=== PATIENT | female | born 1935 | race Caucasian/White ===

== ENCOUNTER → 2018-04-11 13:50 | Outpatient (CLI) | payer MEDICARE, SELFPAY ==
--- NOTE | 2018-04-11 13:57 | ECHOD_ITS ---
Reason For Study: PVCs Procedure This was a 2D Doppler, Color Flow transthoracic echocardiogram. Exam performed in department. Left Ventricle Normal LV size. Left ventricular systolic function is normal. The estimated ejection fraction is 55 %. Stage 1 diastolic dysfunction. No regional wall motion abnormalities noted. Right Ventricle Normal RV size. Normal systolic function. Atria Normal left atrium. Normal right atrium. Hypermobile atrial septum. Mitral Valve Normal mitral valve. Tricuspid Valve Normal tricuspid valve. Mild tricuspid valve insufficiency. Pulmonary artery systolic pressure is 23 mmHg. Aortic Valve Trisinus/trileaflet aortic valve. 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 Pulmonic Valve Normal pulmonic valve. Great Vessels Normal aortic root. The pulmonary artery is normal size. Normal inferior vena cava. Pericardium/Pleural No pericardial effusion. Medication Performed a rapid injection of agitated mix of 9 cc saline and 1cc air to assess for atrial septal defect. Definity0.4ml given slow IV push to enhance endocardial definition. MMode/2D Measurements & Calculations LVIDd: 5.2 cm IVSd: 1.3 cm Ao root diam: 3.5 cm LVIDs: 3.7 cm LVPWd: 1.0 cm LA dimension: 2.7 cm RVDd: 3.9 cm FS: 27.6 % LAV(MOD-bp): 57.7 ml LAV(MOD-bp) Indexed: 35.0 ml/m2 LA A4 area: 19.6 cm2 RA A4 area: 18.2 cm2 LAV(MOD-sp2): 50.6 ml LAV(MOD-sp4): 61.6 ml Doppler Measurements & Calculations MV E max abel: 55.5 cm/sec Lat Peak E' Abel: 2.7 cm/sec Med Peak E' Abel: 3.0 cm/sec MV A max abel: 93.8 cm/sec E/E' lat: 20.5 E/E' med: 18.3 MV E/A: 0.59 Ao V2 max: 160.8 cm/sec AI max abel: 380.4 cm/sec LV V1 max: 101.4 cm/sec Ao max P.3 mmHg AI max P.9 mmHg LV V1 max P.1 mmHg Ao V2 mean: 105.5 cm/sec AI dec slope: 243.4 cm/sec2 Ao mean P.0 mmHg AI P1/2t: 457.8 msec Ao V2 VTI: 33.3 cm PA V2 max: 62.6 cm/sec TR max abel: 228.6 cm/sec TR max P.9 mmHg Interpretation Summary Hypermobile atrial septum. Normal LV size. Left ventricular systolic function is normal. The estimated ejection fraction is 55 %. Stage 1 diastolic dysfunction. 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 Ordering Physician: Chris Arora Referring Physician: Chris Arora Performed By: Lizbeth Fierro, DIEGOCS, RVT
== END ==
PROVIDERS: Family Provider Family Medicine; PCP Family Medicine; Visit Provider Family Medicine
DX: I49.3 Ventricular premature depolarization (principal)
CPT/HCPCS: 93225; 93226; 93306; Q9957; A4216; C8929

== ENCOUNTER → 2021-10-16 | Outpatient (REF) | payer SELFPAY ==
[2021-10-16 09:23] LABS: Hematocrit 29.3 % (37-47); Hemoglobin 9.2 g/dL (12.0-15.0); Mean Corp Hgb Conc 31.4 g/dL (32-36); Mean Corpuscular Hgb 31.4 pg (27.0-32.0); Mean Platelet Vol. 9.2 fl (6.2-12.0); Platelet Count 501 K/mm3 (150-450); RBC Distribution Width CV 15.4 % (11.6-14.6); Red Blood Count 2.93 M/mm3 (4.2-5.4); White Blood Count 5.1 K/mm3 (4.4-11.0)
[2021-10-16 09:42] LABS: Vitamin D,25 Hydroxy 11.2 ng/mL
[2021-10-16 09:57] LABS: Hemoglobin A1c 4.8 % (3.8-5.6)
[2021-10-16 10:14] LABS: ALB/GLOB Ratio 1.1 RATIO (0.9-2.4); AST(SGOT) 18 U/L (15-37); Alanine Aminotransfer ALT/SGPT 17 U/L (13-56); Albumin, Serum 2.7 g/dL (3.2-5.0); Alkaline Phosphatase 168 U/L (45-117); Anion Gap 5 (5-15); BUN 14 mg/dL (7-18); BUN/Creat Ratio 24.4 RATIO (10-20); Calcium,Total 8.2 mg/dL (8.5-10.1); Chloride 107 mmol/L (98-107); Cholesterol 132 mg/dL (200); Creatinine, Serum 0.57 mg/dL (0.55-1.02); EST Glomerular Filtration Rate 107 mL/min (>60); Est Glom Filt Rate - Afr Amer 129 mL/min (>60); Globulin 2.5 g/dL (2.2-4.2); Glucose 75 mg/dL (74-106); High Density Lipoprotein 48 mg/dL; Magnesium 2.7 mg/dL (1.6-2.6); Potassium 4.1 mmol/L (3.5-5.1); Protein, Total 5.2 g/dL (6.4-8.2); Sodium Level 138 mmol/L (136-145); Thyroid Stim Hormone (TSH) 0.77 uIU/mL (0.358-3.74); Triglycerides 75 mg/dL; Very Low Density Lipoprotein 15 mg/dL (5-40)
== END | disposition home or self-care (01) ==
LOC: OLS.ACW100 04:00
PROVIDERS: PCP Family Medicine; Visit Provider Family Medicine
DX: M97.8XXD Periprosthetic fracture around other internal prosthetic joint, subsequent encounter (principal); M97 Periprosthetic fracture around internal prosthetic joint; W19.XXXD Unspecified fall, subsequent encounter
CPT/HCPCS: 36415; 80053; 80061; 82306; 83036; 83735; 84443; 85027

== ENCOUNTER → 2021-12-11 | Outpatient (REF) | payer OTHER, SELFPAY ==
[2021-12-11 09:11] LABS: Hematocrit 41.7 % (37-47); Hemoglobin 12.8 g/dL (12.0-15.0); Mean Corp Hgb Conc 30.7 g/dL (32-36); Mean Corpuscular Hgb 28.4 pg (27.0-32.0); Mean Corpuscular Volume 92.5 fL (81-99); Mean Platelet Vol. 10.6 fl (6.2-12.0); Platelet Count 278 K/mm3 (150-450); RBC Distribution Width CV 14.9 % (11.6-14.6); RBC Distribution Width SD 50.9 fl (35.1-43.9); Red Blood Count 4.51 M/mm3 (4.2-5.4); White Blood Count 7.9 K/mm3 (4.4-11.0)
[2021-12-11 09:24] LABS: Anion Gap 1 (5-15); BUN 23 mg/dL (7-18); BUN/Creat Ratio 29.5 RATIO (10-20); Calcium,Total 9.6 mg/dL (8.5-10.1); Chloride 107 mmol/L (98-107); Creatinine, Serum 0.78 mg/dL (0.55-1.02); EST Glomerular Filtration Rate 75 mL/min (>60); Est Glom Filt Rate - Afr Amer 90 mL/min (>60); Glucose 82 mg/dL (74-106); Sodium Level 140 mmol/L (136-145)
== END | disposition home or self-care (01) ==
LOC: OLS.ACW100 05:00
PROVIDERS: PCP Family Medicine; Referring Provider Family Medicine; Visit Provider Family Medicine
DX: M97.8XXD Periprosthetic fracture around other internal prosthetic joint, subsequent encounter (principal); W19.XXXD Unspecified fall, subsequent encounter
CPT/HCPCS: 36415; 80048; 85027

== ENCOUNTER → 2022-03-19 | Outpatient (REF) | payer OTHER, SELFPAY ==
[2022-03-19 10:02] LABS: Erythrocyte Sedimentation Rate < 1 mm/hr (0-30)
[2022-03-19 10:06] LABS: Hematocrit 38.9 % (37-47); Hemoglobin 12.5 g/dL (12.0-15.0); Mean Corp Hgb Conc 32.1 g/dL (32-36); Mean Corpuscular Hgb 29.6 pg (27.0-32.0); Mean Platelet Vol. 10.8 fl (6.2-12.0); Platelet Count 253 K/mm3 (150-450); RBC Distribution Width CV 15.8 % (11.6-14.6); RBC Distribution Width SD 52.9 fl (35.1-43.9); Red Blood Count 4.23 M/mm3 (4.2-5.4); White Blood Count 7.7 K/mm3 (4.4-11.0)
[2022-03-19 10:08] LABS: Vitamin D,25 Hydroxy 84.7 ng/mL
[2022-03-19 10:13] LABS: AST(SGOT) 16 U/L (15-37); Alanine Aminotransfer ALT/SGPT 17 U/L (13-56); Albumin, Serum 2.9 g/dL (3.2-5.0); Alkaline Phosphatase 65 U/L (45-117); Anion Gap 6 (5-15); BUN 21 mg/dL (7-18); BUN/Creat Ratio 25.1 RATIO (10-20); CRP < 2.90 mg/L (0.0-3.0); Calcium,Total 8.9 mg/dL (8.5-10.1); Chloride 106 mmol/L (98-107); Cholesterol 124 mg/dL (200); Creatinine, Serum 0.84 mg/dL (0.55-1.02); EST Glomerular Filtration Rate 69 mL/min (>60); Est Glom Filt Rate - Afr Amer 83 mL/min (>60); Globulin 2.8 g/dL (2.2-4.2); Glucose 77 mg/dL (74-106); High Density Lipoprotein 51 mg/dL; Potassium 4.6 mmol/L (3.5-5.1); Protein, Total 5.7 g/dL (6.4-8.2); Sodium Level 140 mmol/L (136-145); Triglycerides 87 mg/dL; Very Low Density Lipoprotein 17 mg/dL (5-40)
== END ==
LOC: OLS.ACW100 05:00
PROVIDERS: PCP Family Medicine; Visit Provider Family Medicine
DX: M97.8XXD Periprosthetic fracture around other internal prosthetic joint, subsequent encounter (principal); M97 Periprosthetic fracture around internal prosthetic joint; E55.9 Vitamin D deficiency, unspecified; Z79.899 Other long term (current) drug therapy; W19.XXXD Unspecified fall, subsequent encounter
CPT/HCPCS: 36415; 80053; 80061; 82306; 85027; 85652; 86140

== ENCOUNTER → 2022-08-06 | Outpatient (REF) | payer MEDICARE, MEDICAID, SELFPAY ==
[2022-08-06 10:01] LABS: Anion Gap 4 (5-15); BUN 17 mg/dL (7-18); BUN/Creat Ratio 24.5 RATIO (10-20); Calcium,Total 9.2 mg/dL (8.5-10.1); Chloride 107 mmol/L (98-107); Creatinine, Serum 0.69 mg/dL (0.55-1.02); EST Glomerular Filtration Rate 85 mL/min (>60); Est Glom Filt Rate - Afr Amer 103 mL/min (>60); Glucose 88 mg/dL (74-106); Potassium 3.9 mmol/L (3.5-5.1); Sodium Level 139 mmol/L (136-145)
== END ==
LOC: OLS.ACW100 05:00
PROVIDERS: PCP Family Medicine; Visit Provider Family Medicine
DX: M97.8XXD Periprosthetic fracture around other internal prosthetic joint, subsequent encounter (principal); M97 Periprosthetic fracture around internal prosthetic joint; Z79.899 Other long term (current) drug therapy
CPT/HCPCS: 36415; 80048

== ENCOUNTER → 2023-01-20 | Outpatient (REF) | payer MEDICARE, MEDICAID, SELFPAY ==
[2023-01-20 09:25] LABS: Hematocrit 38.6 % (37-47); Hemoglobin 12.1 g/dL (12.0-15.0); Mean Corp Hgb Conc 31.3 g/dL (32-36); Mean Corpuscular Hgb 30.5 pg (27.0-32.0); Mean Corpuscular Volume 97.2 fL (81-99); Mean Platelet Vol. 10.3 fl (6.2-12.0); Platelet Count 267 K/mm3 (150-450); RBC Distribution Width CV 13.8 % (11.6-14.6); RBC Distribution Width SD 49.8 fl (35.1-43.9); Red Blood Count 3.97 M/mm3 (4.2-5.4); White Blood Count 6.5 K/mm3 (4.4-11.0)
[2023-01-20 09:52] LABS: AST(SGOT) 21 U/L (15-37); Alanine Aminotransfer ALT/SGPT 19 U/L (13-56); Alkaline Phosphatase 78 U/L (45-117); Anion Gap 4 (5-15); BUN 22 mg/dL (7-18); BUN/Creat Ratio 25.1 RATIO (10-20); Calcium,Total 9.4 mg/dL (8.5-10.1); Chloride 106 mmol/L (98-107); Cholesterol 126 mg/dL (200); Creatinine, Serum 0.88 mg/dL (0.55-1.02); EST Glomerular Filtration Rate 65 mL/min (>60); Est Glom Filt Rate - Afr Amer 79 mL/min (>60); Globulin 3.1 g/dL (2.2-4.2); Glucose 81 mg/dL (74-106); High Density Lipoprotein 48 mg/dL; Potassium 4.5 mmol/L (3.5-5.1); Protein, Total 6.1 g/dL (6.4-8.2); Sodium Level 139 mmol/L (136-145); Thyroid Stim Hormone (TSH) 0.21 uIU/mL (0.358-3.74); Triglycerides 78 mg/dL; Very Low Density Lipoprotein 16 mg/dL (5-40)
== END ==
LOC: OLS.ACW100 05:00
PROVIDERS: PCP Family Medicine; Visit Provider Family Medicine
DX: M97.8XXD Periprosthetic fracture around other internal prosthetic joint, subsequent encounter (principal); M97 Periprosthetic fracture around internal prosthetic joint; W19.XXXD Unspecified fall, subsequent encounter; Z79.899 Other long term (current) drug therapy
CPT/HCPCS: 36415; 80053; 80061; 84443; 85027

== ENCOUNTER → 2023-01-27 | Outpatient (REF) | payer MEDICARE, MEDICAID, SELFPAY ==
[2023-01-27 11:37] LABS: Hematocrit 39.9 % (37-47); Hemoglobin 12.5 g/dL (12.0-15.0); Mean Corp Hgb Conc 31.3 g/dL (32-36); Mean Corpuscular Hgb 30.1 pg (27.0-32.0); Mean Corpuscular Volume 96.1 fL (81-99); Mean Platelet Vol. 11.2 fl (6.2-12.0); Platelet Count 228 K/mm3 (150-450); RBC Distribution Width CV 13.9 % (11.6-14.6); RBC Distribution Width SD 48.8 fl (35.1-43.9); Red Blood Count 4.15 M/mm3 (4.2-5.4); White Blood Count 7.1 K/mm3 (4.4-11.0)
[2023-01-27 12:12] LABS: ALB/GLOB Ratio 0.9 RATIO (0.9-2.4); AST(SGOT) 15 U/L (15-37); Alanine Aminotransfer ALT/SGPT 16 U/L (13-56); Albumin, Serum 2.9 g/dL (3.2-5.0); Alkaline Phosphatase 77 U/L (45-117); Anion Gap 5 (5-15); BUN 23 mg/dL (7-18); BUN/Creat Ratio 24.9 RATIO (10-20); Calcium,Total 9.5 mg/dL (8.5-10.1); Chloride 107 mmol/L (98-107); Cholesterol 119 mg/dL (200); Creatinine, Serum 0.92 mg/dL (0.55-1.02); EST Glomerular Filtration Rate 61 mL/min (>60); Est Glom Filt Rate - Afr Amer 74 mL/min (>60); Globulin 3.2 g/dL (2.2-4.2); Glucose 81 mg/dL (74-106); High Density Lipoprotein 46 mg/dL; Potassium 4.5 mmol/L (3.5-5.1); Protein, Total 6.1 g/dL (6.4-8.2); Sodium Level 139 mmol/L (136-145); Thyroid Stim Hormone (TSH) 0.16 uIU/mL (0.358-3.74); Triglycerides 76 mg/dL; Very Low Density Lipoprotein 15 mg/dL (5-40)
== END ==
LOC: OLS.ACW100 06:00
PROVIDERS: PCP Family Medicine; Visit Provider Family Medicine
DX: M97.8XXD Periprosthetic fracture around other internal prosthetic joint, subsequent encounter (principal); M97 Periprosthetic fracture around internal prosthetic joint; W19.XXXD Unspecified fall, subsequent encounter; Z79.899 Other long term (current) drug therapy
CPT/HCPCS: 36415; 80053; 80061; 84443; 85027

== ENCOUNTER → 2023-02-04 | Outpatient (REF) | payer MEDICARE, MEDICAID, SELFPAY ==
[2023-02-04 10:24] LABS: Free T3 2.5 pg/mL (2.18-3.98); T4 Free Direct 1.18 ng/dL (0.76-1.46); Thyroid Stim Hormone (TSH) 0.21 uIU/mL (0.358-3.74)
== END ==
LOC: OLS.ACW100 04:00
PROVIDERS: PCP Family Medicine; Referring Provider Family Medicine; Visit Provider Family Medicine
DX: M97.8XXD Periprosthetic fracture around other internal prosthetic joint, subsequent encounter (principal); M97 Periprosthetic fracture around internal prosthetic joint; W19.XXXD Unspecified fall, subsequent encounter; Z79.899 Other long term (current) drug therapy
CPT/HCPCS: 36415; 84439; 84443; 84481

== ENCOUNTER → 2023-03-23 | Outpatient (REF) | payer MEDICARE, MEDICAID, SELFPAY ==
[2023-03-23 10:11] LABS: T4 Total, Thyroxin 8.2 ug/dL (4.8-13.9); Thyroid Stim Hormone (TSH) 0.23 uIU/mL (0.358-3.74)
[2023-03-23 10:51] LABS: T3 Total - Triiodothyronine 0.94 ng/mL (0.6-1.81)
== END ==
LOC: OLS.ACW100 05:00
PROVIDERS: PCP Family Medicine; Visit Provider Family Medicine
DX: E87.1 Hypo-osmolality and hyponatremia (principal); R73.9 Hyperglycemia, unspecified
CPT/HCPCS: 36415; 84436; 84443; 84480

== ENCOUNTER → 2023-05-03 | Outpatient (REF) | payer MEDICARE, MEDICAID, SELFPAY ==
[2023-05-03 07:41] LABS: Hematocrit 38.7 % (37-47); Hemoglobin 12.3 g/dL (12.0-15.0); Mean Corp Hgb Conc 31.8 g/dL (32-36); Mean Corpuscular Hgb 30.8 pg (27.0-32.0); Mean Corpuscular Volume 96.8 fL (81-99); Mean Platelet Vol. 10.1 fl (6.2-12.0); Platelet Count 226 K/mm3 (150-450); RBC Distribution Width CV 13.4 % (11.6-14.6); RBC Distribution Width SD 48.1 fl (35.1-43.9); White Blood Count 6.5 K/mm3 (4.4-11.0)
[2023-05-03 07:55] LABS: Anion Gap 4 (5-15); BUN 12 mg/dL (7-18); BUN/Creat Ratio 13.7 RATIO (10-20); Calcium,Total 9.2 mg/dL (8.5-10.1); Chloride 107 mmol/L (98-107); Cholesterol 120 mg/dL (200); Creatinine, Serum 0.88 mg/dL (0.55-1.02); EST Glomerular Filtration Rate 65 mL/min (>60); Est Glom Filt Rate - Afr Amer 79 mL/min (>60); Glucose 87 mg/dL (74-106); High Density Lipoprotein 52 mg/dL; Iron 61 ug/dL (50-170); Sodium Level 142 mmol/L (136-145); Triglycerides 94 mg/dL; Very Low Density Lipoprotein 19 mg/dL (5-40)
== END ==
LOC: OLS.ACW100 05:00
PROVIDERS: PCP Family Medicine; Visit Provider Family Medicine
DX: M97.8XXD Periprosthetic fracture around other internal prosthetic joint, subsequent encounter (principal); M97 Periprosthetic fracture around internal prosthetic joint; W19.XXXD Unspecified fall, subsequent encounter
CPT/HCPCS: 36415; 80048; 80061; 83540; 85027

== ENCOUNTER → 2023-11-17 | Outpatient (REF) | payer MEDICARE, MEDICAID, SELFPAY | LOC: OLS.ACW100 05:00 | PROVIDERS: PCP Family Medicine; Visit Provider Family Medicine | DX: M97.8XXD Periprosthetic fracture around other internal prosthetic joint, subsequent encounter (principal); M97 Periprosthetic fracture around internal prosthetic joint; W19.XXXD Unspecified fall, subsequent encounter | CPT/HCPCS: 36415; 87040 ==

== ENCOUNTER → 2023-11-25 | Outpatient (REF) | payer MEDICARE, MEDICAID, SELFPAY ==
[2023-11-25 08:29] LABS: Cholesterol 141 mg/dL (200); High Density Lipoprotein 54 mg/dL; Triglycerides 86 mg/dL; Very Low Density Lipoprotein 17 mg/dL (5-40)
== END ==
LOC: OLS.ACW100 05:00
PROVIDERS: PCP Family Medicine; Visit Provider Family Medicine
DX: N39.0 Urinary tract infection, site not specified (principal); Z79.899 Other long term (current) drug therapy
CPT/HCPCS: 36415; 80061

== ENCOUNTER → 2023-12-02 04:00 | Outpatient (REF) | payer MEDICARE, MEDICAID, SELFPAY ==
[2023-12-02 08:48] LABS: Anion Gap 6 (5-15); BUN 9 mg/dL (7-18); BUN/Creat Ratio 12.3 RATIO (10-20); Calcium,Total 9.3 mg/dL (8.5-10.1); Chloride 109 mmol/L (98-107); Cholesterol 124 mg/dL (200); Creatinine, Serum 0.73 mg/dL (0.55-1.02); EST Glomerular Filtration Rate 80 mL/min (>60); Est Glom Filt Rate - Afr Amer 96 mL/min (>60); Glucose 84 mg/dL (74-106); High Density Lipoprotein 58 mg/dL; Potassium 3.5 mmol/L (3.5-5.1); Sodium Level 139 mmol/L (136-145); Triglycerides 73 mg/dL; Very Low Density Lipoprotein 15 mg/dL (5-40)
== END ==
LOC: OLS.ACW100 04:00
PROVIDERS: PCP Family Medicine; Referring Provider Family Medicine; Visit Provider Family Medicine
DX: N39.0 Urinary tract infection, site not specified (principal); R41.82 Altered mental status, unspecified; Z74.1 Need for assistance with personal care; R53.81 Other malaise; R53.83 Other fatigue; W19.XXXD Unspecified fall, subsequent encounter
CPT/HCPCS: 36415; 80048; 80061

== ENCOUNTER → 2023-12-16 | Outpatient (REF) | payer MEDICARE, MEDICAID, SELFPAY ==
[2023-12-16 09:08] LABS: T4 Total, Thyroxin 7.4 ug/dL (4.8-13.9); Thyroid Stim Hormone (TSH) 0.47 uIU/mL (0.358-3.74)
[2023-12-16 18:23] LABS: T3 Total - Triiodothyronine 0.99 ng/mL (0.6-1.81)
== END ==
LOC: OLS.ACW100 05:00
PROVIDERS: PCP Family Medicine; Visit Provider Family Medicine
DX: R53.81 Other malaise (principal); R53.83 Other fatigue
CPT/HCPCS: 36415; 84436; 84443; 84480

== ENCOUNTER → 2024-04-04 05:00 | Outpatient (REF) | payer MEDICARE, MEDICAID, SELFPAY ==
[2024-04-04 08:56] LABS: Hematocrit 40.8 % (37-47); Mean Corp Hgb Conc 31.9 g/dL (32-36); Mean Corpuscular Hgb 29.3 pg (27.0-32.0); Mean Corpuscular Volume 91.9 fL (81-99); Mean Platelet Vol. 9.7 fl (6.2-12.0); Platelet Count 282 K/mm3 (150-450); RBC Distribution Width CV 15.8 % (11.6-14.6); RBC Distribution Width SD 52.7 fl (35.1-43.9); Red Blood Count 4.44 M/mm3 (4.2-5.4); White Blood Count 5.2 K/mm3 (4.4-11.0)
[2024-04-04 09:27] LABS: Anion Gap 7 (5-15); BUN 17 mg/dL (7-18); BUN/Creat Ratio 22.2 RATIO (10-20); Calcium,Total 9.3 mg/dL (8.5-10.1); Chloride 110 mmol/L (98-107); Cholesterol 175 mg/dL (200); Creatinine, Serum 0.77 mg/dL (0.55-1.02); EST Glomerular Filtration Rate 76 mL/min (>60); Est Glom Filt Rate - Afr Amer 92 mL/min (>60); Glucose 87 mg/dL (74-106); High Density Lipoprotein 68 mg/dL; Iron 57 ug/dL (50-170); Iron Binding Capacity,Total 255 ug/dL (250-450); PERCENT IRON SATURATION 22.4 % (15.0-55.0); Potassium 4.5 mmol/L (3.5-5.1); Sodium Level 139 mmol/L (136-145); Triglycerides 82 mg/dL; Very Low Density Lipoprotein 16 mg/dL (5-40)
== END ==
LOC: OLS.ACW100 05:00
PROVIDERS: PCP Family Medicine; Visit Provider Family Medicine
DX: R41.82 Altered mental status, unspecified (principal); N39.0 Urinary tract infection, site not specified; R26.81 Unsteadiness on feet
CPT/HCPCS: 36415; 80048; 80061; 82306; 83540; 83550; 85027

== ENCOUNTER → 2024-04-24 | Outpatient (REF) | payer MEDICARE, MEDICAID, SELFPAY ==
[2024-04-24 09:10] LABS: ALB/GLOB Ratio 1.2 RATIO (0.9-2.4); AST(SGOT) 13 U/L (15-37); Alanine Aminotransfer ALT/SGPT 13 U/L (13-56); Albumin, Serum 3.1 g/dL (3.2-5.0); Alkaline Phosphatase 82 U/L (45-117); Anion Gap 8 (5-15); BUN 18 mg/dL (7-18); BUN/Creat Ratio 19.4 RATIO (10-20); Calcium,Total 9.3 mg/dL (8.5-10.1); Chloride 110 mmol/L (98-107); Creatinine, Serum 0.93 mg/dL (0.55-1.02); EST Glomerular Filtration Rate 61 mL/min (>60); Est Glom Filt Rate - Afr Amer 73 mL/min (>60); Free T3 2.1 pg/mL (2.18-3.98); Globulin 2.5 g/dL (2.2-4.2); Glucose 97 mg/dL (74-106); Potassium 3.9 mmol/L (3.5-5.1); Protein, Total 5.6 g/dL (6.4-8.2); Sodium Level 140 mmol/L (136-145); T4 Free Direct 1.03 ng/dL (0.76-1.46)
== END ==
LOC: OLS.ACW100 05:00
PROVIDERS: PCP Family Medicine; Visit Provider Family Medicine
DX: E04.1 Nontoxic single thyroid nodule (principal); N39.0 Urinary tract infection, site not specified; R41.82 Altered mental status, unspecified
CPT/HCPCS: 36415; 80053; 84439; 84443; 84481

== ENCOUNTER → 2024-05-08 | Outpatient (REF) | payer MEDICARE, MEDICAID, SELFPAY ==
[2024-05-08 08:10] LABS: Hematocrit 38.4 % (37-47); Hemoglobin 12.1 g/dL (12.0-15.0); Mean Corp Hgb Conc 31.5 g/dL (32-36); Mean Corpuscular Hgb 30.2 pg (27.0-32.0); Mean Corpuscular Volume 95.8 fL (81-99); Mean Platelet Vol. 9.1 fl (6.2-12.0); Platelet Count 275 K/mm3 (150-450); RBC Distribution Width CV 17.5 % (11.6-14.6); RBC Distribution Width SD 61.7 fl (35.1-43.9); Red Blood Count 4.01 M/mm3 (4.2-5.4); White Blood Count 5.9 K/mm3 (4.4-11.0)
[2024-05-08 10:53] LABS: Anion Gap 7 (5-15); BUN 15 mg/dL (7-18); BUN/Creat Ratio 20.6 RATIO (10-20); Calcium,Total 9.5 mg/dL (8.5-10.1); Chloride 112 mmol/L (98-107); Cholesterol 169 mg/dL (200); Creatinine, Serum 0.73 mg/dL (0.55-1.02); EST Glomerular Filtration Rate 80 mL/min (>60); Est Glom Filt Rate - Afr Amer 97 mL/min (>60); Glucose 82 mg/dL (74-106); High Density Lipoprotein 70 mg/dL; Iron Binding Capacity,Total 232 ug/dL (250-450); Potassium 3.9 mmol/L (3.5-5.1); Sodium Level 141 mmol/L (136-145); Triglycerides 96 mg/dL; Very Low Density Lipoprotein 19 mg/dL (5-40)
== END ==
LOC: OLS.ACW100 05:00
PROVIDERS: PCP Family Medicine; Visit Provider Family Medicine
DX: Z79.899 Other long term (current) drug therapy (principal)
CPT/HCPCS: 36415; 80048; 80061; 83550; 85027

== ENCOUNTER → 2024-09-04 05:00 | Outpatient (REF) | payer MEDICARE, MEDICAID, SELFPAY ==
[2024-09-04 10:58] LABS: T4 Total, Thyroxin 8.5 ug/dL (4.8-13.9)
[2024-09-04 12:06] LABS: T3 Total - Triiodothyronine 0.73 ng/mL (0.6-1.81)
== END ==
LOC: OLS.ACW100 05:00
PROVIDERS: PCP Family Medicine; Visit Provider Family Medicine
DX: R41.82 Altered mental status, unspecified (principal); R26.81 Unsteadiness on feet
CPT/HCPCS: 36415; 84436; 84443; 84480

== ENCOUNTER → 2024-10-26 | Outpatient (REF) | payer MEDICARE, MEDICAID, SELFPAY ==
[2024-10-26 08:09] LABS: Hematocrit 41.9 % (37-47); Hemoglobin 13.8 g/dL (12.0-15.0); Mean Corp Hgb Conc 32.9 g/dL (32-36); Mean Corpuscular Hgb 32.5 pg (27.0-32.0); Mean Corpuscular Volume 98.6 fL (81-99); Mean Platelet Vol. 8.4 fl (6.2-12.0); Platelet Count 313 K/mm3 (150-450); RBC Distribution Width CV 14.7 % (11.6-14.6); RBC Distribution Width SD 53.3 fl (35.1-43.9); Red Blood Count 4.25 M/mm3 (4.2-5.4); White Blood Count 7.7 K/mm3 (4.4-11.0)
[2024-10-26 09:53] LABS: ALB/GLOB Ratio 1.8 RATIO (0.9-2.4); AST(SGOT) 16 U/L (<=31); Alanine Aminotransfer ALT/SGPT 10 U/L (<=34); Albumin, Serum 3.4 g/dL (3.4-4.8); Alkaline Phosphatase 75 U/L (35-104); Anion Gap 8 (5-15); BUN 15 mg/dL (4-19); BUN/Creat Ratio 22.3 RATIO (10-20); Calcium,Total 8.9 mg/dL (7.6-11.0); Chloride 105 mmol/L (98-108); Creatinine, Serum 0.67 mg/dL (0.70-1.20); EST Glomerular Filtration Rate 85 (>60); Globulin 1.9 g/dL (2.2-4.2); Glucose 91 mg/dL (70-99); Potassium 4.2 mmol/L (3.3-5.1); Pro- Brain NATRIURETIC PEPTIDE 173 pg/mL (<=1800); Protein, Total 5.4 g/dL (5.9-8.4); Sodium Level 138 mmol/L (133-145); Total Bilirubin 0.58 mg/dL (0.00-1.30)
== END ==
LOC: OLS.ACW100 04:00
PROVIDERS: PCP Family Medicine; Referring Provider Family Medicine; Visit Provider Family Medicine
DX: I51.9 Heart disease, unspecified (principal); N39.0 Urinary tract infection, site not specified; R41.82 Altered mental status, unspecified; R26.81 Unsteadiness on feet
CPT/HCPCS: 36415; 80053; 83880; 85027

== ENCOUNTER → 2024-11-06 | Outpatient (REF) | payer MEDICARE, MEDICAID, SELFPAY ==
[2024-11-06 10:06] LABS: Hematocrit 42.6 % (37-47); Hemoglobin 13.9 g/dL (12.0-15.0); Mean Corp Hgb Conc 32.6 g/dL (32-36); Mean Corpuscular Hgb 32.5 pg (27.0-32.0); Mean Corpuscular Volume 99.5 fL (81-99); Mean Platelet Vol. 8.6 fl (6.2-12.0); Platelet Count 305 K/mm3 (150-450); RBC Distribution Width CV 14.6 % (11.6-14.6); RBC Distribution Width SD 53.8 fl (35.1-43.9); Red Blood Count 4.28 M/mm3 (4.2-5.4); White Blood Count 8.3 K/mm3 (4.4-11.0)
[2024-11-06 10:25] LABS: Anion Gap 9 (5-15); BUN 12 mg/dL (4-19); BUN/Creat Ratio 18.9 RATIO (10-20); Carbon Dioxide 20.9 mmol/L (21.0-32.0); Chloride 107 mmol/L (98-108); Cholesterol 155 mg/dL (<=200); Creatinine, Serum 0.64 mg/dL (0.70-1.20); EST Glomerular Filtration Rate 86 (>60); Glucose 82 mg/dL (70-99); High Density Lipoprotein 74 mg/dL; Low Density Lipoprotein Calc. 67 mg/dL; Potassium 4.2 mmol/L (3.3-5.1); Sodium Level 137 mmol/L (133-145); Triglycerides 69 mg/dL; Very Low Density Lipoprotein 14 mg/dL (5-40)
[2024-11-06 10:55] LABS: Iron 62 ug/dL (50-170); Iron Binding Capacity,Unsat 110 ug/dL (228-428)
[2024-11-06 10:58] LABS: Vitamin D,25 Hydroxy 51.5 ng/mL (30-100)
[2024-11-06 11:08] LABS: Iron Binding Capacity,Total 172 ug/dL (250-450)
== END ==
LOC: OLS.ACW100 05:00
PROVIDERS: PCP Family Medicine; Visit Provider Family Medicine
DX: N39.0 Urinary tract infection, site not specified (principal); R41.82 Altered mental status, unspecified; R26.81 Unsteadiness on feet
CPT/HCPCS: 36415; 80048; 80061; 82306; 83540; 83550; 85027

== ENCOUNTER → 2024-11-30 | Outpatient (REF) | payer MEDICARE, MEDICAID, SELFPAY ==
[2024-11-30 09:15] LABS: Anion Gap 9 (5-15); BUN 13 mg/dL (4-19); BUN/Creat Ratio 18.2 RATIO (10-20); Carbon Dioxide 22.9 mmol/L (21.0-32.0); Chloride 105 mmol/L (98-108); EST Glomerular Filtration Rate 84 (>60); Glucose 86 mg/dL (70-99); Sodium Level 137 mmol/L (133-145)
== END ==
LOC: OLS.ACW100 05:00
PROVIDERS: PCP Family Medicine; Visit Provider Family Medicine
DX: N39.0 Urinary tract infection, site not specified (principal); R41.82 Altered mental status, unspecified; R26.81 Unsteadiness on feet
CPT/HCPCS: 36415; 80048

== ENCOUNTER → 2025-01-01 | Outpatient (REF) | payer MEDICARE, MEDICAID, SELFPAY ==
[2025-01-01 09:12] LABS: T4 Total, Thyroxin 5.9 ug/dL (4.8-13.9)
[2025-01-01 09:33] LABS: T3 Total - Triiodothyronine 0.91 ng/mL (0.80-2.00)
== END ==
LOC: OLS.ACW100 05:00
PROVIDERS: PCP Family Medicine; Visit Provider Family Medicine
DX: N39.0 Urinary tract infection, site not specified (principal); R41.82 Altered mental status, unspecified
CPT/HCPCS: 36415; 84436; 84443; 84480

== ENCOUNTER → 2025-04-09 04:00 | Outpatient (REF) | payer MEDICARE, MEDICAID, SELFPAY ==
--- OUTSIDE RECORDS SUMMARY | 2025-04-09 04:22 | XMS RPT_ITS | CCD ---
Author Organization [facility] Inform ion Partnership [facility] Care Team Providers Care Technology Strategist Name Role Phone Chris Arora Primary Care Provider Thais Talamantes Primary Care Provider Thais Talamantes MD Primary Care Provider [phone] Thais Esteves Attending Unavailable Chris Arora Primary Care Unavailable Thais Esteves Attending Unavailable Maite, Chris Primary Care Unavailable Thais Esteves Referring Unavailable Thais Esteves Attending Unavailable Maite, Chris Primary Care Unavailable Thais Esteves Attending Unavailable Maite, Chris Primary Care Unavailable Thais Esteves Attending Unavailable Maite, Chris Primary Care Unavailable Thais Esteves Attending Unavailable Maite, Chris Primary Care Unavailable Thais Esteves Attending Unavailable Maite, Chris Primary Care Unavailable Thais Esteves Attending Unavailable Chris Arora Primary Care Unavailable BRENT BARAKAT Attending Unavailable THAIS TALAMANTES Primary Care Unavailable BRENT BARAKAT Attending Unavailable BRENT BARAKAT Referring Unavailable THAIS TALAMANTES Primary Care Unavailable BRENT BARAKAT Referring Unavailable THAIS TALAMANTES Primary Care Unavailable BRENT BARAKAT Attending Unavailable THAIS TALAMANTES Primary Care Unavailable Paco Zuluaga MD Unavailable Thais Talamantes MD Unavailable [phone] Medications Current Medications Medication Drug Class(es) Dates Sig (Normalized) Sig (Original) acetaminophen 325 mg / HYDROcodone bitartrate 5 mg oral tablet (1 source) Opioid Agonist Start: 08-31-2019 End: 09-07-2019 take 1 tablet by mouth every four hours as needed for pain HYDROcodone-aceta minophen (NORCO) 5-325 MG per tablet Indications: Benign neoplasm of larynx Take 1 tablet by mouth every 4 hours as needed for Pain for up to 7 days. 15 tablet 0 08/31/2019 09/07/2019 Active albuterol 0.83 mg/ml inhalation solution (5 sources) beta2-Adrenergic Agonist Start: 10-01-2021 albuterol (PROVENTIL) nebulizer solution 2.5 mg End: 12-31-2023 albuterol (2.5 MG/3ML) 0.083 % nebulizer solution Indications: Acute Exacerbation of COPD Take 2.5 mg by nebulization every 4 hours as needed for wheezing or shortness of breath. 0 12/31/2023 Discontinued (Therapy completed) alendronic acid 70 mg oral tablet (11 sources) Bisphosphonate Start: 08-07-2021 alendronate (F OSAMAX) 70 MG tablet Take 1 tablet by mouth every 7 days 12 tablet 0 08/07/2021 Active Start: 04-29-2021 alendronate (F OSAMAX) 70 MG tablet Take 1 tablet by mouth every 7 days 12 tablet 0 04/29/2021 Active Start: 10-15-2020 alendronate (F OSAMAX) 70 MG tablet Take 1 tablet by mouth every 7 days 12 tablet 0 10/15/2020 Active Start: 09-19-2019 alendronate (F OSAMAX) 70 MG tablet Take 1 tablet by mouth every 7 days 12 tablet 1 09/19/2019 Active Start: 06-19-2019 alendronate (F OSAMAX) 70 MG tablet Take 1 tablet by mouth every 7 days 12 tablet 0 06/19/2019 Active Start: 04-19-2019 alendronate (F OSAMAX) 70 MG tablet Take 1 tablet by mouth every 7 days 12 tablet 0 04/19/2019 Active bisacodyl 10 mg rectal suppository (5 sources) Stimulant Laxative Start: 10-01-2021 take 10 mg rectal route once daily as needed for constipation 10 mg, Rectal, DAILY PRN, Constipation, 2nd line or patient preference, Starting on Wed10/01/21 at 0746 Start: 09-30-2021 End: 09-29-2021 bisacodyl (DULCOLAX) [address] 1 suppository rectally daily 30 suppository 0 09/30/2021 09/29/2021 Discontinued Start: 09-28-2021 End: 10-29-2021 bisacodyl (DULCOLAX) [address] 1 suppository rectally daily as needed for Constipation (2nd line or patient preference) 30 suppository 0 09/29/2021 10/29/2021 Active carvedilol 3.125 mg oral tablet (20 sources) alpha-Adrenergic Maribel, beta-Adrenergic Maribel Start: 11-30-2022 End: 11-15-2023 take 1 tablet by mouth once daily carvedilol (Coreg) 3.125 MG tablet Take 3.125 mg by mouth daily. Hold if SBP less than 100 or HR less than 55 11/30/2022 Active Start: 11-30-2022 End: 10-29-2023 take 12.5 mg by mouth twice daily at mealtime 12.5 mg, Oral, 2 times daily with meals, First dose on Wed10/27/23 at 1115 Start: 07-15-2021 take 12.5 mg by mout h once daily at mealtime 12.5 mg, Oral, DAILY, First dose on Wed10/01/21 at 0900 Administer with food to minimize the risk of orthostatic hypotension Start: 04-17-2021 take 1 tablet by karina th once daily carvedilol (COREG) 12.5 MG tablet Indications: LV dysfunction , Essential hypertension , Ectopic cardiac beats , Thoracic aortic aneurysm without rupture (HCC) take 1 tablet by mouth once daily 90 tablet 3 04/17/2021 Active Start: 01-10-2021 take 1 tablet by karina th once daily carvedilol (COREG) 12.5 MG tablet Indications: LV dysfunction , Essential hypertension , Ectopic cardiac beats , Thoracic aortic aneurysm without rupture (HCC) Take 1 tablet by mouth daily 30 tablet 5 01/10/2021 Active cephalexin 500 mg oral capsule (3 sources) Cephalosporin Antibacterial Start: 10-03-2021 End: 10-07-2021 take 1 capsule by mouth every twelve hours cephALEXin (KEFLEX) 500 MG capsule Take 1 capsule by mouth every 12 hours for 1 dose 1 capsule 0 10/06/2021 10/07/2021 Active Start: 01-03-2019 take 1 capsule by mo [facility] twice daily cephALEXin (KEFLEX) 500 MG capsule Take 1 capsule by mouth 2 times daily 6 capsule 0 01/03/2019 Active diclofenac sodium 0.01 mg/mg topical gel (2 sources) Nonsteroidal Anti-inflammatory Drug Voltaren Arthriti s Pain 1 % topical gel as directed active Mary Richardson [facility] 1 ml diphenhydrAMINE hydrochloride 50 mg/ml cartridge (2 sources) Histamine-1 Receptor Antagonist Start: End: diphenhydrAMINE (BENADRYL) injection 12.5 mg Start: 08-31-2019 End: 08-31-2019 diphenhydrAMINE (BENADRYL) i njection 12.5 mg docusate sodium 100 mg oral capsule (19 sources) Start: 09-26-2021 take 1 capsule by mouth twice daily Docusate Sodium (DSS) 100 MG capsule Take 1 capsule by mouth 2 times daily. 09/29/2021 Active ergocalciferol 1.25 mg oral capsule (17 sources) Provitamin D2 Compound Start: 11-28-2022 End: 11-15-2023 take 1 capsule by mouth every week ergocalciferol (Vitamin D2) 1.25 MG (46608 UT) capsule Take 50,000 Units by mouth 1 (one) time per week. 11/28/2022 Active fexofenadine hydrochloride 180 mg oral tablet (1 source) Histamine-1 Receptor Antagonist take 1 tablet by mouth once daily Marcia Allergy 180 mg tablet 1 tablet by mouth once a day active Mary Richardson [employer] [facility] furosemide 20 mg oral tablet (1 source) Loop Diuretic take 1 tablet by mouth once daily Lasix 20 mg tablet 1 tablet by mouth once a day active Mary Richardson [employer] [facility] Handicap Placard MISC (11 sources) Start: 10-20-2018 Handicap Placard MISC 1 each by Does not apply route daily 1 each 0 10/20/2018 Active 1 ml hydrALAZINE hydrochloride 20 mg/ml injection (4 sources) Arteriolar Vasodilator Start: 10-01-2021 5 mg, IntraVENous, EVERY 6 HOURS PRN, High Blood Pressure, SBP>160 mmhg, Starting on Wed10/01/21 at 0746 Start: 02-24-2022 hydrALAZINE (A PRESOLINE) injection 10 mg Start: 06-11-2021 hydrALAZINE (A PRESOLINE) injection 5 mg Start: 08-31-2019 hydrALAZINE (A PRESOLINE) injection 5 mg hydroCHLOROthiazide 25 mg / triamterene 37.5 mg oral capsule (1 source) Potassium-sparing Diuretic, Thiazide Diuretic Start: 09-19-2019 take 1 capsule by mouth once daily triamterene-hydrochlorothiazide (DYAZIDE) 37.5-25 MG per capsule Take 1 capsule by mouth daily 30 capsule 0 09/19/2019 Active 1 ml HYDROmorphone hydrochloride 1 mg/ml cartridge (3 sources) Opioid Agonist Start: 08-31-2019 HYDROmorphone (DILAUDID) injection 0.5 mg Start: 08-31-2019 HYDROmorphone (DILAUDID) injection 0.25 mg labetalol hydrochloride 5 mg/ml injectable solution (2 sources) beta-Adrenergic Maribel Start: 06-11-2021 labetalol (NORMODYNE;TRANDATE) injection 5 mg Start: 08-31-2019 labetalol (NOR MODYNE;TRANDATE) injection 5 mg lactulose 82152 mg powder for oral solution (1 source) Osmotic Laxative Start: 10-25-2020 End: 11-01-2020 take 1 dose by mouth three times daily lactulose (CEPHULAC) 10 g packet Take 1 packet by mouth 3 times daily for 7 days 21 packet 0 10/25/2020 11/01/2020 Active linezolid 600 mg oral tablet (2 sources) Oxazolidinone Antibacterial Start: 11-15-2023 End: 11-20-2023 take 1 tablet by mouth twice daily linezolid (Zyvox) 600 MG tablet Take 1 tablet (600 mg) by mouth 2 times daily for 5 days. 10 tablet 0 11/15/2023 11/20/2023 Active lisinopril 5 mg oral tablet (20 sources) Angiotensin Converting Enzyme Inhibitor Start: 11-30-2022 End: 10-29-2023 lisinopril 5 MG tablet 11/30/2022 Active Start: 09-26-2021 take 5 mg by mouth once daily 5 mg, Oral, DAILY, First dose on Wed10/01/21 at 0900 Start: 07-15-2021 End: 09-29-2021 take 20 mg by mouth once daily 20 mg, Oral, DAILY, Fir st dose on Perla 09/25/21 at 0900 Start: 02-28-2021 take 1 tablet by karina th once daily lisinopril (PRINIVIL;ZESTRIL) 20 MG tablet Take 1 tablet by mouth daily 90 tablet 0 02/28/2021 Active Start: 11-18-2020 End: 02-16-2021 take 1 tablet by mouth once daily lisinopril (PRINIVIL;ZESTRIL) 20 MG tablet Take 1 tablet by mouth daily 90 tablet 0 11/18/2020 02/16/2021 Active Start: 09-04-2020 take 1 tablet by karina th once daily lisinopril (PRINIVIL;ZESTRIL) 10 MG tablet Take 1 tablet by mouth daily 30 tablet 2 09/04/2020 Active 1 ml meperidine hydrochloride 50 mg/ml injection (1 source) Opioid Agonist Start: 08-31-2019 meperidine (DEMEROL) injection 12.5 mg methIMAzole 5 mg oral tablet (16 sources) Thyroid Hormone Synthesis Inhibitor Start: 06-10-2024 End: 06-10-2025 take 0.5 tablet by mouth five times weekly methIMAzole (Tapazole) 5 MG tablet Take 0.5 tablets (2.5 mg) by mouth 5 (five) times a week. 10 tablet 11 06/10/2024 06/10/2025 Active Start: 11-16-2023 End: 11-15-2024 take 0.5 tablet by mouth once daily methIMAzole (Tapazole) 5 MG tablet Take 0.5 tablets (2.5 mg) by mouth daily. 15 tablet 11 11/16/2023 06/09/2024 Discontinued (Dose adjustment) Start: 11-14-2023 End: 11-15-2023 methIMAzole (Tapazole) table t 2.5 mg take 1 tablet by karina th once daily methimazole 5 mg tablet 1 tablet by mouth once a day active Mary Richardson [facility] Naproxen (3 sources) Nonsteroidal Anti-inflammatory Drug Naproxen Sodium ( ALEVE PO) Take by mouth as needed 0 Active ondansetron (ZOFRAN-ODT) disintegrating tablet 4 mg (2 sources) Start: ondansetron (ZOFRAN-ODT) disintegrating tablet 4 mg Start: 09-25-2021 ondansetron (Z OFRAN-ODT) disintegrating tablet 4 mg oxyCODONE hydrochloride 5 mg oral tablet (8 sources) Opioid Agonist Start: 10-01-2021 take 2.5 mg by mouth every four hours as needed for pain 2.5 mg, Oral, EVERY 4 HOURS PRN, Pain Moderate (4-6), Starting on Wed10/01/21 at 0746 Start: 09-28-2021 oxyCODONE (NITISH ICODONE) immediate release tablet 10 mg Start: 09-27-2021 End: 10-06-2021 take 1 tablet by mouth every four hours as needed oxyCODONE (ROXICODONE) 5 MG immediate release tablet Indications: Closed displaced comminuted fracture of shaft of left femur, initial encounter ([facility]) Take 1-2 tablets by mouth every 4 hours as needed for Pain for up to 3 days. 12 tablet 0 09/28/2021 10/06/2021 Discontinued (Stop Taking at Discharge) Start: 09-26-2021 End: 09-28-2021 oxyCODONE (ROXICODONE) immed iate release tablet 5 mg Start: 06-11-2021 End: 06-11-2021 oxyCODONE (ROXICODONE) immed iate release tablet 5 mg Start: 08-31-2019 End: 08-31-2019 oxyCODONE (ROXICODONE) immed iate release tablet 5 mg pantoprazole 40 mg delayed release oral tablet (18 sources) Proton Pump Inhibitor Start: 10-25-2023 End: 01-28-2024 take 1 tablet by mouth once daily before breakfast pantoprazole (ProtoNix) 40 MG EC tablet Take 1 tablet (40 mg) by mouth every morning (before breakfast). Do not crush, chew, or split. 10/30/2023 Active Start: 10-01-2021 take 40 mg by mouth once daily before breakfast 40 mg, Oral, DAILY BEFORE BREAKFAST, First dose on Wed10/01/21 at 0815 Do not crush or break. 1 ml promethazine hydrochloride 25 mg/ml injection (2 sources) Phenothiazine Start: 06-11-2021 End: 06-11-2021 promethazine (PHENERGAN) injection 6.25 mg Start: 08-31-2019 End: 08-31-2019 promethazine (PHENERGAN) inj ection 6.25 mg simvastatin 10 mg oral tablet (20 sources) HMG-CoA Reductase Inhibitor Start: 11-26-2022 take 1 tablet by mouth once daily simvastatin (Zocor) 10 MG tablet Take 10 mg by mouth Nightly. 11/26/2022 Active Start: 09-25-2021 take 10 mg by mouth once daily 10 mg, Oral, NIGHTLY, First dose on Perla 09/25/21 at 2100 Start: 07-15-2021 take 1 tablet by karina th once daily simvastatin (ZOCOR) 10 MG tablet Take 1 tablet by mouth nightly 90 tablet 0 07/15/2021 Active Start: 03-20-2021 take 1 tablet by karina th once daily simvastatin (ZOCOR) 10 MG tablet Take 1 tablet by mouth nightly 90 tablet 0 03/20/2021 Active Start: 10-09-2020 take 1 tablet by karina th once daily simvastatin (ZOCOR) 10 MG tablet Take 1 tablet by mouth nightly 90 tablet 0 10/09/2020 Active Start: 09-19-2019 take 1 tablet by karina th once daily simvastatin (ZOCOR) 10 MG tablet Take 1 tablet by mouth nightly 90 tablet 1 09/19/2019 Active Start: 06-19-2019 take 1 tablet by karina th once daily simvastatin (ZOCOR) 10 MG tablet Take 1 tablet by mouth nightly 90 tablet 0 06/19/2019 Active Start: 04-19-2019 take 1 tablet by karina th once daily simvastatin (ZOCOR) 10 MG tablet Take 1 tablet by mouth nightly 90 tablet 0 04/19/2019 Active sodium chloride flush 0.9 % injection 3 mL (1 source) Start: 05-04-2019 sodium chlorid e flush 0.9 % injection 3 mL 24 hr tolterodine tartrate 4 mg extended release oral capsule (1 source) Cholinergic Muscarinic Antagonist Start: 02-09-2019 take 1 capsule by mouth once daily tolterodine (DETROL LA) 4 MG extended release capsule Take 1 capsule by mouth daily 30 capsule 5 02/09/2019 Active VITAMIN D (ERGOCALCIFEROL) (ERGOCALCIFEROL) 1.25 MG (71933 UT) CAPS (1 source) take 1 capsule by mouth once daily Vitamin D2 1,250 mcg (50,000 unit) capsule 1 capsule by mouth once a day Mondays active Mary Richardson [facility] Completed/Discontinued Medications Medication Drug Class(es) Dates Sig (Normalized) Sig (Original) acetaminophen 325 mg oral tablet (20 sources) Start: 11-13-2023 End: 11-15-2023 take 1 tablet by mouth every six hours as needed for pain and fever and headache acetaminophen (Tylenol) tablet 650 mg Start: 10-24-2023 End: 10-29-2023 take 1 tablet by mouth every eight hours as needed for pain and fever 1,000 mg, Oral, Every 8 hours PRN, mild pain (1-3), fever, Starting on 10/24/23 at 0123, Maximum dose of acetaminophen is 4000 mg from all sources in 24 hours. Start: 10-01-2021 acetaminophen (TYLENOL) tablet 650 mg Start: 09-25-2021 acetaminophen (TYLENOL) tablet 650 mg Start: 06-11-2021 End: 06-11-2021 acetaminophen (TYLENOL) tabl et 500 mg Start: 10-25-2020 End: 10-25-2020 acetaminophen (TYLENOL) tabl et 1,000 mg Start: 08-31-2019 End: 08-31-2019 acetaminophen (TYLENOL) tabl et 650 mg take 1 tablet by karina th three times daily as needed for pain Tylenol 325 mg tablet 1 tablet by mouth three times a day as needed for pain active Mary Richardson [facility] take 1 tablet by karina th every six hours as needed acetaminophen (Tylenol) 500 MG tablet Take 500 mg by mouth every 6 hours as needed. Active albuterol 0.833 mg/ml / ipratropium bromide 0.167 mg/ml inhalation solution (6 sources) Anticholinergic, beta2-Adrenergic Agonist Start: 11-13-2023 End: 11-15-2023 3 mL, Nebulization, Every 4 hours PRN, wheezing, shortness of breath, Starting on 11/13/23 at 1637 End: 12-31-2023 ipratropium-albuterol (Duo-N eb) 0.5-2.5 mg/3 mL nebulizer solution Indications: Chronic Obstructive Pulmonary Disease Take 3 mL by nebulization in the morning and 3 mL at noon and 3 mL in the evening. 0 12/31/2023 Discontinued (Therapy completed) atorvastatin 10 mg oral tablet (5 sources) HMG-CoA Reductase Inhibitor Start: 11-13-2023 End: 11-15-2023 10 mg, Oral, Nightly, First dose on Wed11/13/23 at 2100, Substituted for simvastatin (Zocor). Start: 10-27-2023 End: 10-29-2023 10 mg, Oral, Nightly, First dose on Wed10/27/23 at 2100, Substituted for simvastatin (Zocor). Start: 10-01-2021 atorvastatin ( LIPITOR) tablet 10 mg calcium carbonate 500 mg chewable tablet (6 sources) End: 12-31-2023 calcium carbonate (Tums) 500 MG chewable tablet Chew 500 mg daily. 0 12/31/2023 Discontinued (Therapy completed) calcium chloride 0.0014 meq/ ml / potassium chloride 0.004 meq/ml / sodium chloride 0.103 meq/ml / sodium lactate 0.028 meq/ml injectable solution (7 sources) Start: 10-24-2023 End: 10-24-2023 lactated ringers bolus 500 m L Start: 10-02-2021 End: 10-06-2021 lactated ringers infusion Start: 06-11-2021 lactated ringe rs infusion Start: 08-31-2019 lactated ringe rs infusion calcium polycarbophil 625 mg oral tablet (15 sources) Start: 11-14-2023 End: 11-15-2023 take 625 mg by mouth once daily 625 mg, Oral, Daily, First dose on 11/14/23 at 0900 ceFAZolin 2000 mg injection (1 source) Cephalosporin Antibacterial Start: 09-25-2021 End: 09-25-2021 2,000 mg, IntraVENous, EVERY 8 HOURS, 2 doses, First dose on Perla 09/25/21 at 1200, Last dose on Perla 09/25/21 at 2000 ceFAZolin (ANCEF) 2000 mg in dextrose 5 % 100 mL IVPB (1 source) Start: 06-11-2021 End: 06-11-2021 ceFAZolin (ANCEF) 2000 mg in dextrose 5 % 100 mL IVPB cefTRIAXone (2 sources) Cephalosporin Antibacterial Start: 10-28-2023 End: 11-15-2023 take 2 g intravenously every twenty-four hours cefTRIAXone (Rocephin) IVPB Infuse 2 g into a venous catheter Every 24 hours. 0 10/28/2023 11/15/2023 Discontinued (Stop taking at discharge) cefTRIAXone (Rocephin) 2,000 mg in sodium chloride 0.9 % 50 mL IVPB Mini-Bag Plus (2 sources) Start: 10-26-2023 End: 10-29-2023 cefTRIAXone (Rocephin) 2,000 mg in sodium chloride 0.9 % 50 mL IVPB Mini-Bag Plus cefTRIAXone sodium 1,000 mg in sodium chloride 0.9 % 100 mL IVPB (add-vantage) (1 source) Start: 10-02-2021 End: 10-03-2021 cefTRIAXone sodium 1,000 mg in sodium chloride 0.9 % 100 mL IVPB (add-vantage) cefuroxime 250 mg oral tablet (1 source) Cephalosporin Antibacterial Start: 09-16-2021 End: 09-29-2021 take 1 tablet by mouth twice daily cefUROXime (CEFTIN) 250 MG tablet Take 1 tablet by mouth 2 times daily for 10 days 20 tablet 0 09/16/2021 09/29/2021 Discontinued (Stop Taking at Discharge) cetirizine hydrochloride 5 mg oral tablet (15 sources) Histamine-1 Receptor Antagonist Start: 11-14-2023 End: 11-15-2023 take 5 mg by mouth once daily 5 mg, Oral, Daily, First dose on 11/14/23 at 0900 cetirizine (ZyrT EC) 10 MG chewable tablet Chew 10 mg daily. Active cilostazol 50 mg oral tablet (16 sources) Phosphodiesterase 3 Inhibitor Start: 11-13-2023 End: 11-15-2023 take 100 mg by mouth twice daily 100 mg, Oral, 2 times daily, First dose on 11/13/23 at 2100 take 1 tablet by mouth twice vida ly cilostazol 100 mg tablet 1 tablet by mouth twice a day active Mary Richardson [facility] docusate sodium 50 mg / sennosides, mcc 8.6 mg oral tablet (4 sources) Start: 11-14-2023 End: 11-15-2023 senna-docusate sodium (Senok ot-S) 8.6-50 MG tablet 2 tablet Start: 10-24-2023 End: 10-29-2023 1 tablet, Oral, Daily PRN, c onstipation, Starting on Wed10/24/23 at 0123, Cannot be crushed in PEG, Indications: Constipation 0.4 ml enoxaparin sodium 100 mg/ml prefilled syringe (11 sources) Low Molecular Weight Heparin Start: 11-14-2023 End: 11-15-2023 enoxaparin (Lovenox) syringe 40 mg Start: 10-30-2023 End: 10-29-2023 enoxaparin (Lovenox) syringe 40 mg Start: 10-30-2023 End: 10-29-2023 enoxaparin (Lovenox) syringe 40 mg Start: 10-25-2023 End: 10-29-2023 enoxaparin (Lovenox) syringe 30 mg Start: 09-26-2021 End: 10-21-2021 inject 40 mg by subcutaneous injection once daily 40 mg, SubCUTAneous, DAILY, First dose on Wed10/01/21 at 0900 famotidine 20 mg oral tablet (2 sources) Histamine-2 Receptor Antagonist Start: 06-11-2021 End: 06-11-2021 famotidine (PEPCID) tablet 20 mg Start: 08-31-2019 End: 08-31-2019 famotidine (PEPCID) tablet 2 0 mg 2 ml fentaNYL 0.05 mg/ml injection (2 sources) Opioid Agonist Start: 10-01-2021 End: 10-01-2021 fentaNYL (SUBLIMAZE) injection 25 mcg ferrous sulfate 325 mg oral tablet (18 sources) Start: 10-28-2023 End: 10-29-2023 take 325 mg by mouth once daily at breakfast 325 mg, Oral, Daily with breakfast, First dose on Perla 10/28/23 at 0800 take 1 tablet by mouth once christina y Feosol 325 mg (65 mg iron) tablet 1 tablet by mouth once a day active Mary Richardson [facility] gabapentin 100 mg oral capsule (17 sources) Anti-epileptic Agent Start: 11-14-2023 End: 11-15-2023 gabapentin (Neurontin) capsule 100 mg Start: 11-24-2022 End: 10-29-2023 gabapentin (Neurontin) 100 M G capsule 12 hr guaiFENesin 600 mg extended release oral tablet (6 sources) Start: 11-13-2023 End: 12-31-2023 take 600 mg by mouth twice daily as needed for cough 600 mg, Oral, 2 times daily PRN, cough, Starting on 11/13/23 at 1637, Administer with plenty of fluids to ensure proper action. Do not crush, chew, or split. heparin sodium, porcine 100 unt/ml injectable solution (8 sources) Unfractionated Heparin, Anti-coagulant Start: 10-29-2023 End: 10-29-2023 take 250 [IU] intraluminal route every twelve hours heparin flush injection 250 Units Start: 10-23-2023 End: 10-23-2023 heparin injection 3,540 Unit s Start: 10-23-2023 End: 10-24-2023 heparin 25,000 units in dext sruthi 5% 250mL infusion (premix) hydrocortisone 100 mg injection (4 sources) Corticosteroid Start: 10-24-2023 End: 10-26-2023 take 100 mg intravenously every eight hours Hydrocortisone Sod Suc (PF) (Solu-CORTEF) injection 100 mg hydrOXYzine hydrochloride 25 mg oral tablet (1 source) Antihistamine Start: 10-01-2021 End: 10-01-2021 hydrOXYzine (ATARAX) tablet 25 mg Start: 10-01-2021 End: 10-01-2021 hydrOXYzine (ATARAX) tablet 25 mg ibuprofen 600 mg oral tablet (1 source) Nonsteroidal Anti-inflammatory Drug Start: 10-25-2020 End: 10-25-2020 ibuprofen (ADVIL;MOTRIN) tablet 600 mg iopamidol (Isovue-370) 76 % injection 100 mL (2 sources) Start: 10-23-2023 End: 10-23-2023 iopamidol (Isovue-370) 76 % injection 100 mL 1 ml ketorolac tromethamine 30 mg/ml cartridge (1 source) Nonsteroidal Anti-inflammatory Drug, Cyclooxygenase Inhibitor Start: 09-25-2021 End: 09-28-2021 ketorolac (TORADOL) injection 15 mg lidocaine 0.04 mg/mg medicated patch (20 sources) Antiarrhythmic, Amide Local Anesthetic Start: 10-29-2023 End: 10-29-2023 lidocaine PF (Xylocaine) 1 % injection Start: 09-27-2021 End: 11-15-2023 apply 1 dose transdermal route once daily Lidocaine 4 % patch Place 1 patch on the skin daily. 09/30/2021 Active Start: 08-31-2019 End: 08-31-2019 lidocaine PF 1 % injection 1 mL amzbnisjf-NNZVLUGztzz-sqqkzx zi gel (1 source) Start: 05-04-2019 End: 05-04-2019 yirrkqmqy-YVAGITUopda-evmojj zi gel melatonin 3 mg oral tablet (2 sources) Start: 11-13-2023 End: 11-15-2023 melatonin tablet 3 mg 5 ml metoprolol tartrate 1 m g/ml injection (2 sources) beta -Adr ener gic Bloc ker Start: 11-14-2023 End: 11-15-2023 take 5 mg intr aven ousl y ever y six hour s as need ed metoprolol tartrate (Lopressor) injection 5 mg miconazole nitrate 0.02 mg/m g topical powder (2 sources) Azol e Anti annamarie al Start: 11-13-2023 End: 11-15-2023 miconazole (Micotin) 2 % pow alejandrina 1 ml morphine sulfate 4 mg/m l injection (3 sources) Opio id Agon ist Start: 09-25-2021 End: 09-25-2021 morphine sulfate (PF) inject ion 2 mg Start: 09-25-2021 End: 09-25-2021 morphine 4 MG/ML injection Start: 09-24-2021 End: 09-24-2021 morphine sulfate (PF) inject ion 4 mg norepinephrine (Levophed) 4 mg in 0.9% sodium chloride 250 mL infusion (Jwe-Sqbuwh-Ssxox) (premix) (2 sources) Start: 10-23-2023 End: 10-24-2023 norepinephrine (Levophed) 4 mg in 0.9% sodium chloride 250 mL infusion (Irq-Utiatm-Zdyrv) (premix) norepinephrine (Levophed) infusion 16 mg in 0.9 % sodium chloride 250 mL (Drs-Yldqcc-Nhkaw) (premix) (2 sources) Start: 10-24-2023 End: 10-26-2023 norepinephrine (Levophed) infusion 16 mg in 0.9 % sodium chloride 250 mL (Dig-Yjsesb-Lmxnj) (premix) 2 ml ondansetron 2 mg/ml injection (20 sources) Serotonin-3 Receptor Antagonist Start: 11-13-2023 End: 11-15-2023 take 4 mg intravenously every six hours as needed for nausea and vomiting ondansetron (Zofran) injection 4 mg Start: 09-29-2021 take 1 tablet by karina th every eight hours as needed ondansetron ODT (Zofran-ODT) 4 MG disintegrating tablet Take 1 tablet by mouth every 8 hours as needed. 09/29/2021 Active Start: 06-11-2021 End: 06-11-2021 ondansetron (ZOFRAN) injecti on 4 mg Start: 08-31-2019 End: 08-31-2019 ondansetron (ZOFRAN) injecti on 4 mg Start: 05-04-2019 End: 05-04-2019 ondansetron (ZOFRAN-ODT) disintegrating tablet 4 mg ondansetron ODT (Zofran-ODT) disintegrating tablet 4 mg (2 sources) Start: 10-24-2023 End: 10-29-2023 take 1 tablet by mouth every eight hours as needed for nausea and vomiting ondansetron ODT (Zofran-ODT) disintegrating tablet 4 mg oseltamivir 30 mg oral capsule (4 sources) Neuraminidase Inhibitor Start: 10-24-2023 End: 10-28-2023 oseltamivir (Tamiflu) capsule 30 mg perflutren protein A microsphere (Optison) 3 mL in sodium chloride (PF) 0.9 % 10 mL IV syringe (2 sources) Start: 10-24-2023 End: 10-24-2023 perflutren protein A microsphere (Optison) 3 mL in sodium chloride (PF) 0.9 % 10 mL IV syringe polyethylene glycol 3350 [id number] mg powder for oral solution (9 sources) Osmotic Laxative Start: 11-13-2023 End: 11-15-2023 polyethylene glycol (PEG) 3350 (Miralax) packet 17 g Start: 09-25-2021 End: 10-30-2021 17 g, Oral, DAILY, First dos e on Wed10/01/21 at 0900 microencapsulated potassium chloride 10 meq extended release oral tablet (20 sources) Start: 11-14-2023 End: 11-15-2023 40 mEq, Oral, Daily, First dose on Wed11/14/23 at 0900, HOLD FOR POTASSIUM > 4.6 ......Best given with food and plenty of water to minimize gastric irritation. Do not crush or chew. Start: 10-29-2023 End: 10-29-2023 potassium chloride CR (Klor- Con M20) ER tablet 40 mEq Start: 10-27-2023 End: 10-27-2023 potassium chloride CR (Klor- Con M20) ER tablet 40 mEq Start: 10-26-2023 End: 10-26-2023 potassium chloride IVPB 20 m Eq take 1 tablet by karina th once daily potassium chloride ER 10 mEq tablet,extended release 1 tablet by mouth once a day active Mary Richardson LPN [facility] take 4 tablets by mo uth once daily potassium chloride CR (Klor-Con) 10 MEQ ER tablet Take 40 mEq by mouth daily. Do not crush, chew, or split. Active potassium phosphates 15 mmol in sodium chloride 0.9 % 250 mL IVPB (2 sources) Start: 10-26-2023 End: 10-26-2023 potassium phosphates 15 mmol in sodium chloride 0.9 % 250 mL IVPB predniSONE 20 mg oral tablet (1 source) Start: 10-25-2020 End: 10-25-2020 predniSONE (DELTASONE) table t 40 mg regadenoson (LEXISCAN) injec tion 0.4 mg (1 source) Start: 01-23-2021 End: 01-23-2021 regadenoson (LEXISCAN) injection 0.4 mg 50 ml sodium chloride 9 mg/m l injection (20 sources) Start: 11-14-2023 End: 11-14-2023 sodium chloride 0.9 % bolus 500 mL Start: 11-14-2023 End: 11-15-2023 sodium chloride 0.9 % infusi on Start: 10-24-2023 End: 10-29-2023 10 mL, IntraVENous, Every 12 hours scheduled (2 times per day), First dose on Wed10/24/23 at 0900 Start: 10-24-2023 End: 10-29-2023 take 10 mL intraluminal route every twelve hours sodium chloride 0.9% (NS) flush 10 mL Start: 10-24-2023 End: 10-29-2023 sodium chloride 0.9% (NS) fl ush 5-40 mL Start: 10-24-2023 End: 10-29-2023 take 100 mL intravenously every hour as needed, then take 20 mL intravenously every hour as needed 5-250 mL/hr, IntraVENous, PRN, if patient receiving piggyback infusions and maintenance fluids are not ordered OR KVO fluids to protect IV site / prevent frequent line interruptions/ long duration, Starting on 10/24/23 at 0123, For piggyback infusion, administer at same rate as piggyback for a total of 25 mL. Enter 25 mL into dose field and piggyback rate into rate field of order. If piggyback is infusing at a rate less than 100 mL/hr, enter 25 mL into dose field and 100 mL/hr into rate field of order. For KVO fluids, enter rate of 20 mL/hr or less into rate field of order. Start: 10-24-2023 End: 10-29-2023 take 10 mL intravenously once as needed 10 mL, IntraVENous, PRN, line care, Starting on 10/24/23 at 0123, After every IV line use Start: 10-01-2021 End: 10-02-2021 0.9 % sodium chloride infusi on Start: 10-01-2021 take 1 dose intraven ously twice daily 5-40 mL, IntraVENous, EVERY 12 HOURS SCHEDULED (2 times per day), First dose on Wed10/01/21 at 0900 For Line Patency: Peripheral IV = 5 mL; Midline or Central Line = 10 mL/lumen. If following IV push medication, administer flush at same rate as the IV push. Flush volume is determined by type of infusion therapy being given. For non-viscous solutions use: Peripheral IV = 5 mL Midline or Central Line = 10 mL/lumen For viscous solutions (i.e. blood components, parenteral nutrition, contrast media, or after obtaining blood sample) use: Peripheral IV = 10 mL Midline or Central Line = 20 mL/lumen Start: 10-01-2021 take 25 mL intraveno usly every hour as needed 25 mL, IntraVENous, at 100 mL/hr, PRN, If patient receiving piggyback infusions without ordered maintenance IV fluids or with frequent/long duration piggyback infusions, Starting on Wed10/01/21 at 0746 Administer at the same rate as the piggyback being infused. Start: 10-01-2021 take 5-40 mL intrave nously once as needed 5-40 mL, IntraVENous, PRN, Line Care, After every IV line use, Starting on Wed10/01/21 at 0746 For Line Patency: Peripheral IV = 5 mL; Midline or Central Line = 10 mL/lumen. If following IV push medication, administer flush at same rate as the IV push. Flush volume is determined by type of infusion therapy being given. For non-viscous solutions use: Peripheral IV = 5 mL Midline or Central Line = 10 mL/lumen For viscous solutions (i.e. blood components, parenteral nutrition, contrast media, or after obtaining blood sample) use: Peripheral IV = 10 mL Midline or Central Line = 20 mL/lumen Start: 09-25-2021 0.9 % sodium c hloride infusion Start: 09-25-2021 sodium chlorid e flush 0.9 % injection 5-40 mL Start: 06-11-2021 End: 06-11-2021 0.9 % sodium chloride bolus Start: 06-11-2021 0.9 % sodium c hloride infusion Start: 06-11-2021 sodium chlorid e flush 0.9 % injection 5-40 mL Start: 08-31-2019 sodium chlorid e flush 0.9 % injection 10 mL Start: 08-31-2019 sodium chlorid e flush 0.9 % injection 10 mL stomahesive in petrolatum (E T Mix) (6 sources) Start: 11-15-2023 End: 11-15-2023 stomahesive in petrolatum (E T Mix) Start: 11-15-2023 End: 11-15-2023 stomahesive in petrolatum (E T Mix) Start: 11-13-2023 End: 11-15-2023 stomahesive in petrolatum (E T Mix) vancomycin (Vancocin) 750 mg in sodium chloride 0.9 % 250 mL IVPB (2 sources) Start: 10-26-2023 End: 10-26-2023 vancomycin (Vancocin) 750 mg in sodium chloride 0.9 % 250 mL IVPB Problems Active Problems Problem Classification Problem Date Documented Da te Episodic/Chronic Acute myocardial infarction (20 sources) Myocardial infarction; Translations: [Non-ST elevation (NSTEMI) myocardial infarction] Onset: 10-23-2023 10-24-2023 Chronic Administrative/social admission (2 sources) Need for assistance with personal care; Translations: [Need for assistance with personal care] Onset: 09-11-2024 Episodic Aortic; peripheral; and visceral artery aneurysms (18 sources) Thoracic aortic aneurysm without rupture; Translations: [Thoracic aortic aneurysm, without rupture] Onset: 09-09-2021 Chronic Cardiac dysrhythmias (20 sources) Aberrant premature complexes; 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] Onset: 12-14-2020 Chronic Chronic obstructive pulmonary disease and bronchiectasis (20 sources) Chronic obstructive lung disease; Translations: [Chronic obstructive pulmonary disease, unspecified] Onset: 09-19-2019 09-19-2019 Chronic Chronic ulcer of skin (2 sources) Pressure ulcer of sacral region, unstageable; Translations: [Pressure ulcer, lower back] 11-15-2023 Chronic Disorders of lipid metabolism (20 sources) Hypercholesterolemia ; Translations: [Pure hypercholesterolemia , unspecified] Onset: 11-11-2015 11-11-2015 Chronic E Codes: Fall (4 sources) Fall; Translations: [Unspecified fall, initial encounter] Onset: 09-11-2024 02-09-2024 Episodic Essential hypertension (20 sources) Essential hypertension; Translations: [Essential (primary) hypertension] Onset: 12-14-2020 12-14-2020 Chronic External cause codes: Fall (2 sources) Fall; Translations: [Fall on same level from slipping, tripping or stumbling ] Fracture of lower limb (1 source) Closed fracture of shaft of femur; Translations: [Displaced comminuted fracture of shaft of left femur, initial encounter for closed fracture] Episodic Hypertension with complications and secondary hypertension (18 sources) Hypertensive urgency ; Translations: [Hypertensive urgency] Onset: 09-25-2021 Chronic Malaise and fatigue (1 source) Asthenia; Translations: [Other malaise] 12-31-2023 Episodic Osteoarthritis (20 sources) Osteoarthritis of right hip joint; Translations: [Unilateral primary osteoarthritis, right hip] Onset: 06-14-2017 06-14-2017 Chronic Osteoarthritis (3 sources) Osteoarthritis of right hip joint; Translations: [Primary osteoarthritis of right hip] Onset: 06-14-2017 06-14-2017 Osteoporosis (20 sources) Osteoporosis; Translations: [Age-related osteoporosis without current pathological fracture] Onset: 11-11-2015 11-11-2015 Chronic Other and ill-defined heart disease (20 sources) Left ventricular cardiac dysfunction; Translations: [Heart disease, unspecified] Onset: 12-14-2020 Chronic Other and ill-defined heart disease (1 source) Aneurysm of heart; Translations: [Aneurysm of heart] Chronic Other and ill-defined heart disease (1 source) Heart disease, unspecified; Translations: [Heart disease, unspecified] Onset: 11-14-2024 Chronic Other circulatory disease (1 source) Other specified symptoms and signs involving the circulatory and respiratory systems; Translations: [Other symptoms involving cardiovascular system] Episodic Other circulatory disease (1 source) Carotid bruit; Translations: [Other specified symptoms and signs involving the circulatory and respiratory systems] Episodic Other connective tissue disease (4 sources) History of total hip arthroplasty; Translations: [History of total left hip replacement] Onset: 06-14-2017 06-14-2017 Chronic Other connective tissue disease (20 sources) History of total replacement of left hip joint; Translations: [Presence of left artificial hip joint] Onset: 06-14-2017 06-14-2017 Chronic Other connective tissue disease (1 source) Periprosthetic fracture; Translations: [Presence of unspecified artificial knee joint] Onset: 05-01-2022 05-01-2022 Chronic Other connective tissue disease (1 source) Pain in right lower limb; Translations: [Right leg pain] Episodic Other diseases of bladder and urethra (20 sources) Overactive bladder; Translations: [Overactive bladder] Onset: 12-08-2018 12-08-2018 Chronic Other fractures (1 source) Compression fracture of lumbar spine; Translations: [Compression fracture of L5 vertebra, initial encounter ([facility])] Episodic Other gastrointestinal disorders (1 source) Constipation; Translations: [Constipation, unspecified constipation type] Episodic Other injuries and conditions due to external causes (2 sources) Closed injury of head; Translations: [Unspecified injury of head, initial encounter] 02-09-2024 Episodic Other nervous system disorders (15 sources) Aphasia; Translations: [Aphasia] Onset: 11-13-2023 11-13-2023 Chronic Other nervous system disorders (2 sources) Unsteadiness on feet; Translations: [Unsteadiness on feet] Onset: 09-11-2024 Episodic Residual codes; unclassified (20 sources) Device in situ; Translations: [Presence of functional implant, unspecified] Onset: 06-14-2017 06-14-2017 Chronic Residual codes; unclassified (1 source) Edema of lower extremity; Translations: [Leg edema] Episodic Residual codes; unclassified (1 source) Localized edema; Translations: [Localized edema] Episodic Residual codes; unclassified (1 source) Bilateral lower limb edema; Translations: [Localized edema] Episodic Residual codes; unclassified (2 sources) Altered mental status, unspecified; Translations: [Altered mental status, unspecified] Onset: 09-11-2024 Episodic Residual codes; unclassified (3 sources) Device in situ; Translations: [Presence of retained hardware] Onset: 06-14-2017 06-14-2017 Sprains and strains (2 sources) Sprain of left shoulder; Translations: [Unspecified sprain of left shoulder joint, initial encounter] 02-09-2024 Episodic Thyroid disorders (20 sources) Thyrotoxicosis; Translations: [Other thyrotoxicosis without thyrotoxic crisis or storm] Onset: 12-31-2023 11-28-2023 Chronic Unclassified (1 source) History of total replacement of left hip joint; Translations: [History of total left hip replacement] Onset: 06-14-2017 06-14-2017 Urinary tract infections (2 sources) Urinary tract infection, site not specified; Translations: [Urinary tract infection, site not specified] Onset: 09-11-2024 Episodic Past or Other Problems Problem Classification Problem Date Documented Date Episodic/Chronic Complications of surgical procedures or medical care (20 sources) Periprosthetic fracture; Translations: [Periprosthetic fracture around unspecified internal prosthetic joint, initial encounter] Onset: 09-25-2021 Episodic Diabetes mellitus without complication (18 sources) Hyperglycemia; Translations: [Hyperglycemia, unspecified] Onset: 09-25-2021 Episodic Fluid and electrolyte disorders (18 sources) Hyponatremia; Translations: [Hypo-osmolality and hyponatremia] Onset: 09-25-2021 Episodic Open wounds of head; neck; and trunk (1 source) Scalp laceration; Translations: [Laceration of scalp, initial encounter] Episodic Other and unspecified benign neoplasm (1 source) Benign neoplasm of larynx Episodic Other connective tissue disease (18 sources) Peripheral neuropathic pain; Translations: [Neuralgia and neuritis, unspecified] Onset: 09-25-2021 Episodic Other diseases of kidney and ureters (20 sources) Bilateral hydronephrosis ; Translations: [Unspecified hydronephrosis] Onset: 12-08-2018 01-03-2019 Episodic Other injuries and conditions due to external causes (1 source) Injury of head; Translations: [Injury of head, initial encounter] Episodic Other injuries and conditions due to external causes (1 source) Tear of skin; Translations: [Skin tear of right forearm without complication, initial encounter] Episodic Other nervous system disorders (18 sources) Abnormal gait; Translations: [Unsteadiness on feet] Onset: 09-25-2021 Episodic Residual codes; unclassified (2 sources) Device in situ Onset: 06-14-2017 06-14-2017 Episodic Superficial injury; contusion (1 source) Contusion of knee; Translations: [Contusion of knee, unspecified laterality, initial encounter] Episodic Syncope (1 source) Near syncope; Translations: [Near syncope] Episodic Results Test Name Value Interpretation Reference Range Facility Relevant diagnostic tests/la boratory data Narrativeon 03-02-2025 Fall risk assessment no [facility] [employer] Work Phone: MEDS REVIEW Done [employer] Work Phone: MEDS REVIEWD Medications reviewed with changes [employer] Work Phone: 36on [phone] Spoke to Flori explained to her no chart notes were faxed to them. Lab orders were faxed back in november matt facility. Flori stated a Sonja Haney printed chart notes. I explained to her theres no person by that name here [facility] 36 Name of caller: Flori Contact phone number: [phone] Relationship to Patient: [facility] Provider: Dr Barakat Practice: Endocrinology Chief Complaint/Reason for Call: Flori with [facility] received a fax of office visit notes without additional information. Please advise why this was sent or resend complete information needed. Best time of day caller can be reached: Any Patient advised that office/PCP has 24-48 business hours to return their call: Yes [facility] Serum or plasma triiodothyro nine (T3) measurement (mass/volume)Ordered By: Thais Talamantes on 01-01-2025 T3 [Mass/Vol] 0.91 ng/mL 0.80-2.00 [facility] TSH DL <= 0.005 mIU/L QnOrde red By: Thais Talamantes on 01-01-2025 TSH Qn 1.470 uIU/mL 0.300-4.200 [facility] ThyroxineOrdered By: Thais Talamantes on 01-01-2025 T4 [Mass/Vol] 5.9 ug/dL 4.8-13.9 [facility] 36on 12-29-2024 36 Faxed orders to Abhinav Ruiz [facility] 36on 12-28-2024 36 I spoke to patient today and she declined ultrasound. She was not willing to have an FNA biopsy performed or surgery if nodules were suspicious or concerning. Since she was not having symptoms, we decided not to pursue the ultrasound. But since we thought that she already had it done, I requested the results. So no need to schedule one. What I need more importantly would be her thyroid blood work. Thank you. [place] [address] US expires 12/30 can you put a new order in and I will fax to facility [place] [address] Received some record s. Med list noted. Labs noted. No ultrasound. However, there were no thyroid levels on the lab results. The thyroid labs will need to be done. Please send lab orders in for TSH, free T4, and free T3. We can fax the orders from 06/09/2024. Thank you. Normal [facility] 36 Please follow-up on thyroid lab results and recent ultrasound. I also need the most recent medication list. Thank you. Normal [facility] Progress Noteon 12-28-2024 Progress Note [facility] END[facility] [address] [facility] [id number] Dept: [phone] Dept Visit type: Established Reason for Visit: Hyperthyroidism Patient was identified and seen today via Telehealth by agreement and consent. I used the following Telehealth technology: Audio capability only. Total length of call 30 minutes. The patient was offered and advised video for a more comprehensive evaluation, but the patient declined or was unable to use video. Patient location: Patient Location: Nursing facility. This patient encounter is appropriate and reasonable under the circumstances: transportation issues . The patient has been advised of the potential risks and limitations of this mode of treatment (including but not limited to the absence of in-person examination) and has agreed to be treated in a remote fashion in spite of them. Any and all of the patient's/patient's family's questions on this issue have been answered and I have made no promises or guarantees to the patient. The patient has also been advised to contact this office for worsening conditions or problems, and seek emergency medical treatment and/or call 911 if the patient deems either necessary. The patient stated that they are currently in the [facility]. If the patient is a minor, permission has been obtained by the parent or guardian for the patient to receive medical care at this visit. 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 Thyroid nodule 3. Age-related osteoporosis without current pathological fracture Thyrotoxicosis -thyroid labs consistent with thyrotoxicosis on 11/23 presenting with tachycardia -Possibly due to toxic thyroid nodule -Patient is at risk for complications related to hyperthyroidism given her advanced age and other comorbidities including osteoporosis -TRAb neg -Patient on antithyroid medication with methimazole -MMI dose reduced to 2.5 mg 5 days a week on 06/25 -Patient clinically euthyroid based on history -repeat TFTs requested to be done in 3 months were not received; additional labs to be done before this visit were also not available --will send new lab orders for TFTs to be performed REESE Thyroid nodule -Patient has incidentally discovered right thyroid nodule on 11/[address] -Recent thyroid ultrasound revealed a R nodule that met criteria for biopsy -she has no neck compressive symptoms -Patient has declined surgery even if malignant, thus, FNA biopsy would not be helpful -pt has accepted risk -this is fairly reasonable given pt's advanced age and comorbidities -no need for further management of thyroid nodule at this time --of note, this was the recommendation previously, but there was a request from the facility for a thyroid ultrasound so this was ordered but no results were received and after further inquiry, the ultrasound was not actually performed -At this time, I would not recommend repeat thyroid imaging Osteoporosis managed by PCP Continue Ca/D supplementation. Unable to exercise due to her mobility issues. Avoid falls. Can consider pharmacotherapy. Defer to PCP. Moving forward, hyperthyroidism would be better managed by PCP who can coordinate patient's care more appropriately than through our office since we can only follow her up virtually. Follow up Will follow-up with PCP for thyroid. Subjective Thyroid disorder: Thyroid nodule, thyrotoxicosis/hyperth yroidism Onset of thyroid disorder: 11/23 Home regimen: none Biotin use: none Patient resides at [facility] with her . She has significant debility. She is wheelchair-bound. Patient was found to have an incidental right nodule on CTA on 10/23. CTA on 10/23/2023 showed a 3.5 cm hypodense nodule on the right lobe of the thyroid. US (11/23) right mid 3.1 cm TI-RADS 4 nodule, left mid 0.4 cm TI-RADS 4 nodule No history of neck radiation. No neck compressive symptoms. No family history of thyroid cancer. TFTs were abnormal. Latest Reference Range & Units 11/13/23 12:11 11/14/23 05:56 THYROID STIMULATING HORMONE 0.465 - 4.680 uIU/mL <0.015 (L) T4, FREE 0.78 - 2.19 ng/dL 2.57 (H) T3, FREE 2.77 - 5.27 pg/mL 4.49 TSH on 10/23 was also suppressed at 0.082. Patient had normal TSH on 10/21. No prior history of thyroid disease. No family history of thyroid disease. No hyperthyroid symptoms. There is a history of heart failure in her chart. No history of arrhythmia or CAD. She has known osteoporosis. Not on treatment. Pt [facility] 11/23 from SNF for AMS. She had Influenza A infection and bacteremia. Also had UTI. Labs 12/16/23. TSH 0.47, TT4 7.4, TT3 0.99, all normal. Continued methimazole 2.5 mg daily. Labs (04/25) TSH 2.1, free T41.03, free T3 2.1 Low US (04/25) --right 4.2 cm solid nodule, left 1.3 cm solid nodule, both TI-RADS 3 nodules LV 12/23. She resides at [facility] (more content not included)... Normal [facility] Anion gap in Serum or Plasma Ordered By: Thais Talamantes on 11-30-2024 Anion gap [Moles/Vol] 9 mmol/L 5-15 [facility] BUN/creatinine ratioOrdered By: Thais Talamantes on 11-30-2024 Urea nitrogen/Creatinine [Mass ratio] 18.2 mg/mg 10- [facility] Carbon dioxide, total [Moles /volume] in Central venous bloodOrdered By: Thais Talamantes on 11-30-2024 CO2 [Moles/Vol] 22.9 mmol/L 21.0-32.0 [facility] Chloride assayOrdered By: Martita Talamantes on 11-30-2024 Chloride [Moles/Vol] 105 mmol/L 98-108 [facility] Glomerular filtration rate ( GFR) estimation/1.73 sq m using serum, plasma, or whole bOrdered By: Thais Talamantes on 11-30-2024 GFR/1.73 sq M.predicted among non-blacks MDRD (S/P/Bld) [Vol rate/Area] 84 mL/min/{1.73_m2} >60 [facility] Comment on above: mL/min/1.73m2 CKD-EP I Creatinine Equation (2020) Potassium measurement (mass/ volume)Ordered By: Thais Talamantes on 11-30-2024 Potassium (Unsp spec) [Mass/Vol] 4.0 mmol/L 3.3-5.1 [facility] Serum creatinine measurement (mass/volume)Ordered By: Thais Talamantes on 11-30-2024 Creatinine [Mass/Vol] 0.70 mg/dL 0.70-1.20 [facility] Serum glucose measurement (m ass/volume)Ordered By: Thais Talamantes on 11-30-2024 Glucose [Mass/Vol] 86 mg/dL 70-99 [facility] Serum or plasma calcium zoë urement (mass/volume)Ordered By: Thais Talamantes on 11-30-2024 Calcium [Mass/Vol] 9.0 mg/dL 7.6-11.0 [facility] Serum or plasma urea nitroge n measurement (mass/volume)Ordered By: Thais Talamantes on 11-30-2024 Urea nitrogen [Mass/Vol] 13 mg/dL 4-19 [facility] Sodium levelOrdered By: Jamie Talamantes on 11-30-2024 Sodium [Moles/Vol] 137 mmol/L 133-145 [facility] Anion gap in Serum or Plasma Ordered By: Thais Talamantes on 11-06-2024 Anion gap [Moles/Vol] 9 mmol/L 5-15 [facility] BUN/creatinine ratioOrdered By: Thais Talamantes on 11-06-2024 Urea nitrogen/Creatinine [Mass ratio] 18.9 mg/mg 10-20 [facility] Calculated total iron bindin g capacityOrdered By: Thais Talamantes on 11-06-2024 Total Iron Binding Capacity 172 ug/dL Low 250-450 [facility] Calculated very low density lipoprotein (VLDL) cholesterol measurementOrdered By: Thais Talamantes on 11-06-2024 Calculated very low density lipoprotein (VLDL) cholesterol measurement 14 mg/dL 5-40 [facility] VLDL Cholesterol 14 mg/dL 5-40 [facility] Carbon dioxide, total [Moles /volume] in Central venous bloodOrdered By: Thais Talamantes on 11-06-2024 CO2 [Moles/Vol] 20.9 mmol/L Low 21.0-32.0 [facility] Chloride assayOrdered By: Martita Talamantes on 11-06-2024 Chloride [Moles/Vol] 107 mmol/L 98-108 [facility] Erythrocyte distribution wid th (RBC) [Ratio]Ordered By: Thais Talamantes on 11-06-2024 Erythrocyte distribution width (RBC) [Entitic vol] 53.8 fL High 35.1-43.9 [facility] Erythrocyte distribution wid th ratioOrdered By: Thais Talamantes on 11-06-2024 Erythrocyte distribution width (RBC) [Ratio] 14.6 % 11.6-14.6 [facility] Erythrocyte distribution wid th standard deviationOrdered By: Thais Talamantse on 11-06-2024 Erythrocyte distribution width (RBC) [Ratio] 53.8 fl High 35.1-43.9 [facility] GFR/1.73 sq M.predicted lester g non-blacks MDRD (S/P/Bld) [Vol rate/Area]Ordered By: Thais Talamantes on 11-06-2024 Estimated GFR (MDRD) Non-Af Amer 86 >60 [facility] Comment on above: mL/min/1.73m2 CKD-EP I Creatinine Equation (2020) Glomerular filtration rate ( GFR) estimation/1.73 sq m using serum, plasma, or whole bOrdered By: Thais Talamantes on 11-06-2024 GFR/1.73 sq M.predicted among non-blacks MDRD (S/P/Bld) [Vol rate/Area] 86 mL/min/{1.73_m2} >60 [facility] Comment on above: mL/min/1.73m2 CKD-EP I Creatinine Equation (2020) Hematocrit Auto (Bld) [Volum e fraction]Ordered By: Thais Talamantes on 11-06-2024 Hematocrit (Bld) [Volume fraction] 42.6 % 37-47 [facility] Hemoglobin measurementOrdere d By: Thais Talamantes on 11-06-2024 Hemoglobin (Bld) [Mass/Vol] 13.9 g/dL 12.0-15.0 [facility] Iron (Unsp spec) [Mass/Mass] Ordered By: Thais Talamantes on 11-06-2024 Iron [Mass/Vol] 62 ug/dL 50-170 [facility] Iron measurement (mass/mass) Ordered By: Thais Talamantes on 11-06-2024 Iron (Unsp spec) [Mass/Mass] 62 ug/dL 50-170 [facility] Iron saturation [Mass fracti on]Ordered By: Thais Talamantes on 11-06-2024 Iron Saturation 36.0 % 13-59 [facility] LDL calc ser/plasOrdered By: Thais Talamantes on 11-06-2024 Cholesterol in LDL [Mass/Vol] 67 mg/dL [facility] Comment on above: Swpdxunjib=476-108 m g/dL & Higher Jahz=513 mg/dL or greater LDL Cholesterol, Calculated 67 mg/dL [facility] Comment on above: Lxlerspjom=886-852 m g/dL & Higher Oyeb=842 mg/dL or greater MCV (mean corpuscular volume ) determinationOrdered By: Thais Talamantes on 11-06-2024 MCV (RBC) [Entitic vol] 99.5 fL High 81-99 [facility] Mean corpuscular hemoglobin (MCH) determinationOrdered By: Thais Talamantes on 11-06-2024 MCH (RBC) [Entitic mass] 32.5 pg High 27.0-32.0 [facility] Mean corpuscular hemoglobin concentration (MCHC) determinationOrdered By: Thais Talamantes on 11-06-2024 MCHC (RBC) [Mass/Vol] 32.6 g/dL 32-36 [facility] Mean platelet volume determi nationOrdered By: Thais Talamantes on 11-06-2024 Platelet mean volume (Bld) [Entitic vol] 8.6 fL 6.2-12.0 [facility] No Panel InformationOrdered By: Thais Talamantes on 11-06-2024 Unsaturated Iron Binding Capacity 110 ug/dL Low 228-428 [facility] Platelet countOrdered By: Martita Talamantes on 11-06-2024 Platelets (Bld) [#/Vol] 305 10*3/uL 150-450 [facility] Potassium (Unsp spec) [Mass/ Vol]Ordered By: Thais Talamantes on 11-06-2024 Potassium [Moles/Vol] 4.2 mmol/L 3.3-5.1 [facility] Potassium measurement (mass/ volume)Ordered By: Thais Talamantes on 11-06-2024 Potassium (Unsp spec) [Mass/Vol] 4.2 mmol/L 3.3-5.1 [facility] RBC Auto (Bld) [#/Vol]Ordere d By: Thais Talamantes on 11-06-2024 RBC (Bld) [#/Vol] 4.28 10*6/uL 4.2-5.4 [facility] Screening total cholesterol/ high density lipoprotein (HDL) cholesterol ratioOrdered By: Thais Talamantes on 11-06-2024 Cholesterol.total/Choles terol in HDL [Mass ratio] 2.10 {ratio} [facility] Serum creatinine measurement (mass/volume)Ordered By: Thais Talamantes on 11-06-2024 Creatinine [Mass/Vol] 0.64 mg/dL Low 0.70-1.20 [facility] Serum glucose measurement (m ass/volume)Ordered By: Thais Talamantes on 11-06-2024 Glucose [Mass/Vol] 82 mg/dL 70-99 [facility] Serum or plasma calcium zoë urement (mass/volume)Ordered By: Thais Talamantes on 11-06-2024 Calcium [Mass/Vol] 9.0 mg/dL 7.6-11.0 [facility] Serum or plasma cholesterol in HDL measurement (mass/volume)Ordered By: Thais Talamantes on 11-06-2024 Cholesterol in HDL [Mass/Vol] 74 mg/dL >40 [facility] Comment on above: National Cholesterol Education Program (NCEP) guidelines:<40 mg/dL: Low HDL-cholesterol (major risk factor for CHD)>= 60 mg/dL: High HDL-cholesterol (negative risk factor for CHD)HDL-cholesterol is affected by a number of factors, e.g. smoking, exercise, hormones, sex and age. Serum or plasma cholesterol measurement (mass/volume)Ordered By: Thais Talamantes on 11-06-2024 Cholesterol [Mass/Vol] 155 mg/dL <201 [facility] Comment on above: Cholesterol level, D esirable <200 mg/dLBorderline high cholesterol 200-239 mg/dLHigh cholesterol >=240 mg/dLRecommendations of the NCEP Adult Treatment Panel for the following risk-cutoff thresholds for the [place] population. Serum or plasma iron saturat ion measurement (mass fraction)Ordered By: Thais Talamantes on 11-06-2024 Iron saturation [Mass fraction] 36.0 % 13-59 [facility] Serum or plasma urea nitroge n measurement (mass/volume)Ordered By: Thais Talamantes on 11-06-2024 Urea nitrogen [Mass/Vol] 12 mg/dL 4-19 [facility] Sodium levelOrdered By: Jamie Talamantes on 11-06-2024 Sodium [Moles/Vol] 137 mmol/L 133-145 [facility] Triglycerides measurementOrd ered By: Thais Talamantse on 11-06-2024 Triglyceride [Mass/Vol] 69 mg/dL <199 [facility] Comment on above: The drugs N-Acetylcy steine and Metamizole may falsely depress this assay. Normal range: <150 mg/dLBorderline High: 150-199 mg/dLHigh: 200-499 mg/dLVery High: >500 mg/dL Vitamin D, 25-hydroxyOrdered By: Thais Talamantes on 11-06-2024 Vitamin D 25-Hydroxy 51.5 ng/mL 30-100 [facility] Comment on above: Vitamin D StatusDefi ciency: <20 ng/mL (50nmol/L)Insufficiency: 20-30 ng/mL (50-75 nmol/L)Sufficiency: 30-100 ng/mL (75-250 nmol/L)Toxicity: >100 ng/mL (>250 nmol/L) White blood cell (WBC) count Ordered By: Thais Talamantes on 11-06-2024 WBC (Bld) [#/Vol] 8.3 10*3/uL 4.4-11.0 [facility] Anion gap in Serum or Plasma Ordered By: Thais Talamantes on 10-26-2024 Anion gap [Moles/Vol] 8 mmol/L 5-15 [facility] BUN/creatinine ratioOrdered By: Thais Talamantes on 10-26-2024 Urea nitrogen/Creatinine [Mass ratio] 22.3 mg/mg High 10-20 [facility] Bilirubin, totalOrdered By: Thais Talamantes on 10-26-2024 Bilirubin [Mass/Vol] 0.58 mg/dL 0.00-1.30 [facility] Carbon dioxide, total [Moles /volume] in Central venous bloodOrdered By: Thais Talamantes on 10-26-2024 CO2 [Moles/Vol] 25.0 mmol/L 21.0-32.0 [facility] Chloride assayOrdered By: Martita Talamantes on 10-26-2024 Chloride [Moles/Vol] 105 mmol/L 98-108 [facility] Erythrocyte distribution wid th (RBC) [Ratio]Ordered By: Thais Talamantes on 10-26-2024 Erythrocyte distribution width (RBC) [Entitic vol] 53.3 fL High 35.1-43.9 [facility] Erythrocyte distribution wid th ratioOrdered By: Thais Talamantes on 10-26-2024 Erythrocyte distribution width (RBC) [Ratio] 14.7 % High 11.6-14.6 [facility] Erythrocyte distribution wid th standard deviationOrdered By: Thais Talamantes on 10-26-2024 Erythrocyte distribution width (RBC) [Ratio] 53.3 fl High 35.1-43.9 [facility] GFR/1.73 sq M.predicted lester g non-blacks MDRD (S/P/Bld) [Vol rate/Area]Ordered By: Thais Talamantes on 10-26-2024 Estimated GFR (MDRD) Non-Af Amer 85 >60 [facility] Comment on above: mL/min/1.73m2 CKD-EP I Creatinine Equation (2020) Glomerular filtration rate ( GFR) estimation/1.73 sq m using serum, plasma, or whole bOrdered By: Thais Talamantes on 10-26-2024 GFR/1.73 sq M.predicted among non-blacks MDRD (S/P/Bld) [Vol rate/Area] 85 mL/min/{1.73_m2} >60 [facility] Comment on above: mL/min/1.73m2 CKD-EP I Creatinine Equation (2020) Hematocrit Auto (Bld) [Volum e fraction]Ordered By: Thais Talamantes on 10-26-2024 Hematocrit (Bld) [Volume fraction] 41.9 % 37-47 [facility] Hemoglobin measurementOrdere d By: Thais Talamantes on 10-26-2024 Hemoglobin (Bld) [Mass/Vol] 13.8 g/dL 12.0-15.0 [facility] Laboratory - Chemistry and C hemistry - challengeOrdered By: Thais Talamantes on 10-26-2024 AST [Catalytic activity/Vol] 16 U/L <32 [facility] Natriuretic peptide B (Bld) [Mass/Vol] 173 pg/mL <1800 [facility] Comment on above: Heart Failure Unlike ly: < 300 pg/mLHeart Failure Likely< 50 Years: > 450 pg/mL50-75 Years: > 900 pg/mL>75 Years: > 1800 pg/mL MCV (mean corpuscular volume ) determinationOrdered By: Thais Talamantes on 10-26-2024 MCV (RBC) [Entitic vol] 98.6 fL 81-99 [facility] Mean corpuscular hemoglobin (MCH) determinationOrdered By: Thais Talamantes on 10-26-2024 MCH (RBC) [Entitic mass] 32.5 pg High 27.0-32.0 [facility] Mean corpuscular hemoglobin concentration (MCHC) determinationOrdered By: Thais Talamantes on 10-26-2024 MCHC (RBC) [Mass/Vol] 32.9 g/dL 32-36 [facility] Mean platelet volume determi nationOrdered By: Thais Talamantes on 10-26-2024 Platelet mean volume (Bld) [Entitic vol] 8.4 fL 6.2-12.0 [facility] Platelet countOrdered By: Martita Talamantes on 10-26-2024 Platelets (Bld) [#/Vol] 313 10*3/uL 150-450 [facility] Potassium (Unsp spec) [Mass/ Vol]Ordered By: Thais Talamantes on 10-26-2024 Potassium [Moles/Vol] 4.2 mmol/L 3.3-5.1 [facility] Potassium measurement (mass/ volume)Ordered By: Thais Talamantes on 10-26-2024 Potassium (Unsp spec) [Mass/Vol] 4.2 mmol/L 3.3-5.1 [facility] RBC Auto (Bld) [#/Vol]Ordere d By: Thais Talamantes on 10-26-2024 RBC (Bld) [#/Vol] 4.25 10*6/uL 4.2-5.4 [facility] Serum creatinine measurement (mass/volume)Ordered By: Thais Talamantes on 10-26-2024 Creatinine [Mass/Vol] 0.67 mg/dL Low 0.70-1.20 [facility] Serum globulin measurementOr dered By: Thais Talamantes on 10-26-2024 Globulin (S) [Mass/Vol] 1.9 g/dL Low 2.2-4.2 [facility] Serum glucose measurement (m ass/volume)Ordered By: Thais Talamantes on 10-26-2024 Glucose [Mass/Vol] 91 mg/dL 70-99 [facility] Serum or plasma alanine manning otransferase (ALT) measurementOrdered By: Thais Talamantes on 10-26-2024 ALT [Catalytic activity/Vol] 10 U/L <35 [facility] Serum or plasma albumin zoë urement (mass/volume)Ordered By: Thais Talamantes on 10-26-2024 Albumin [Mass/Vol] 3.4 g/dL 3.4-4.8 [facility] Serum or plasma albumin/glob ulin mass ratioOrdered By: Thais Talamantes on 10-26-2024 Albumin/Globulin [Mass ratio] 1.8 {ratio} 0.9-2.4 [facility] Serum or plasma alkaline gina sphatase measurementOrdered By: Thais Talamantes on 10-26-2024 ALP [Catalytic activity/Vol] 75 U/L 35-104 [facility] Serum or plasma calcium zoë urement (mass/volume)Ordered By: Thais Talamantes on 10-26-2024 Calcium [Mass/Vol] 8.9 mg/dL 7.6-11.0 [facility] Serum or plasma urea nitroge n measurement (mass/volume)Ordered By: Thais Talamantes on 10-26-2024 Urea nitrogen [Mass/Vol] 15 mg/dL 4-19 [facility] Sodium levelOrdered By: Jamie Talamantes on 10-26-2024 Sodium [Moles/Vol] 138 mmol/L 133-145 [facility] Total proteinOrdered By: Soren Talamantes on 10-26-2024 Protein [Mass/Vol] 5.4 g/dL Low 5.9-8.4 [facility] White blood cell (WBC) count Ordered By: Thais Talamantes on 10-26-2024 WBC (Bld) [#/Vol] 7.7 10*3/uL 4.4-11.0 [facility] Serum or plasma thyroxine (T 4) measurement (mass/volume)Ordered By: Thais Talamantes on 09-04-2024 T4 [Mass/Vol] 8.5 ug/dL 4.8-13.9 [facility] T3 IA [Mass/Vol]Ordered By: Thais Talamantes on 09-04-2024 Total Triiodothyronine 0.73 ng/mL 0.6-1.81 [facility] TSH QnOrdered By: Thais connors on 09-04-2024 Thyroid Stimulating Hormone (TSH) 0.690 uIU/mL 0.358-3.740 [facility] 36on 06-26-2024 36 Spoke with staff, Ultrasound order faxed. Bill will get done. Normal [facility] 36on 06-23-2024 36 Name of caller: Lj Contact phone number: [phone] Relationship to Patient: Abhinav Ruiz Provider: Dr. Barakat Practice: [facility] [place] [place] Endocrinology Chief Complaint/Reason for Call: Lj states that the patient is refusing to go have the US thyroid done and he would like to know if he could do a US with a [place], instead. Lj states that, if it is okay to do he would need to know what the US is for and a verbal order is acceptable. Please advise. Best time of day caller can be reached: Any Patient advised that office/PCP has 24-48 business hours to return their call: No Normal [facility] Progress Noteon 06-09-2024 Progress Note [facility] [address] [place] [facility] [address] Dept: [phone] Dept Visit type: Established Reason for Visit: No chief complaint on file. Patient was identified and seen today via Telehealth by agreement and consent. I used the following Telehealth technology: Audio capability only. Total length of call 30 minutes. The patient was offered and advised video for a more comprehensive evaluation, but the patient declined or was unable to use video. Patient location: [place] Patient Location: Nursing facility. This patient encounter is appropriate and reasonable under the circumstances: transportation issues and mobility issues. The patient has been advised of the potential risks and limitations of this mode of treatment (including but not limited to the absence of in-person examination) and has agreed to be treated in a remote fashion in spite of them. Any and all of the patient's/patient's family's questions on thisissue have been answered and I have made no promises or guarantees to the patient. The patient has also been advised to contact this office for worsening conditions or problems, and seek emergency medical treatment and/or call 911 if the patient deems either necessary. The patient stated that they are currently in the [facility]. If the patient is a minor, permission has been obtained by the parent or guardian for the patient to receive medical care at this visit. Assessment and Plan 1. Thyroid nodule 2. Other thyrotoxicosis without thyrotoxic crisis or storm - TSH - T4, free - T3, free 3. Age-related osteoporosis without current pathological fracture Thyroid nodule -Patient has incidentally discovered right thyroid nodule on 11/[address] -Recent thyroid ultrasound revealed a R nodule that met criteria for biopsy; this seems to have grown from the last ultrasound but has been labeled a TI-RADS 3 nodule rather than a TI-RADS 4 nodule --either way, this would still be amenable for biopsy -she has no neck compressive symptoms -Counseled patient regarding the evaluation and management of thyroid nodule -Patient has declined surgery even if malignant, thus, FNA biopsy would not be helpful -- pt accepts risks of possible malignancy -this is fairly reasonable given pt's advanced age and comorbidities -no need for further management at this time Thyrotoxicosis -thyroid labs consistent with thyrotoxicosis on 11/23 presenting with tachycardia -Possibly due to toxic thyroid nodule -Patient is at risk for complications related to hyperthyroidism given her advanced age and other comorbidities including osteoporosis -TRAb neg -Patient on antithyroid medication with methimazole -Recent labs reviewed --noted low FT3 -Will reduce MMI to 2.5 mg 5 days a week -will repeat TFTs in 3 months Osteoporosis managed by PCP Continue Ca/D supplementation. Unable to exercise due to her mobility issues. Avoid falls. Can consider pharmacotherapy. No follow-ups on file. Subjective Thyroid disorder: Thyroid nodule, thyrotoxicosis/hyperth yroidism Onset of thyroid disorder: 11/23 Home regimen: none Biotin use: none Patient resides at [facility] with her . She has significant debility. She is wheelchair-bound. Patient was found to have an incidental right nodule on CTA on 10/23. CTA on 10/23/2023 showed a 3.5 cm hypodense nodule on the right lobe of the thyroid. US (11/23) right mid 3.1 cm TI-RADS 4 nodule, left mid 0.4 cm TI-RADS 4 nodule No history of neck radiation. No neck compressive symptoms. No family history of thyroid cancer. TFTs were abnormal. Latest Reference Range & Units 11/13/23 12:11 11/14/23 05:56 THYROID STIMULATING HORMONE 0.465 - 4.680 uIU/mL <0.015 (L) T4, FREE 0.78 - 2.19 ng/dL 2.57 (H) T3, FREE 2.77 - 5.27 pg/mL 4.49 TSH on 10/23 was also suppressed at 0.082. Patient had normal TSH on 10/21. No prior history of thyroid disease. No family history of thyroid disease. No hyperthyroid symptoms. There is a history of heart failure in her chart. No history of arrhythmia or CAD. She has known osteoporosis. Not on treatment. Pt hospitalized 11/23 from SNF for AMS. She had Influenza A infection and bacteremia. Also had UTI. LV 12/23. She resides at [facility]. Spoke to Lj, nursing teacher @ [phone] Noted labs from 12/16/23. TSH 0.47, TT4 7.4, TT3 0.99, all normal. Continued methimazole 2.5 mg daily. No hospitalizations since last visit She had COVID recently She has lost some weight -- 03/25 120 -- now 126 pounds She does not eat much as she does not like the food there Stopped iron; has some bowel incontinence She is bedbound; does not move much No recent falls No neck compressive symptoms Denies palpitations, tremors, excessive sweating, anxiety Records from [facility] noted Labs (04/25) TSH 2.1, free T41.03, free T3 2.1 Low US (04/25) --r (more content not included)... Normal [facility] No Panel Informationon 02-08 1. Possible small osteophytic spur and associated cleavage plane in the humeral neck-head junction appears chronic. Correlation with point tenderness and radiographic follow-up in 3-5 days may help in further evaluation. Alternatively, correlation with CT shoulder may help in further evaluation, as indicated. 2. No other, acute osseous abnormality. 3. Degenerative change. PELVIS SINGLE VIEW CLINICAL INDICATION: Fall, pain TECHNIQUE: Single, AP view of the pelvis. COMPARISON: September,. FINDINGS: Diffuse osteopenia. Interlocking IM rods in the right femoral head-neck, and status post left total hip arthroplasty. No apparent fracture or dislocation. Advanced degenerative change in the right hip joint and visualized lower lumbar spine. Soft tissues grossly unremarkable. IMPRESSION: 1. No acute osseous abnormality. 2. Postsurgical and degenerative change. Report Dictated on Electronically Signed By: Tutu Arroyo MD Electronically Signed Date/Time: 02/09/2024 12:04 AM EDT [facility] XR Pelvis 1 or 2 Viewson Patient Name: ADORE WALTER : 1935 Exam Date/Time: 2024 23:56 Procedure: XR PELVIS 1-2 VIEWS Ordering Provider: SCHWARZ JONATHAN Reason For Exam: Fall LEFT SHOULDER 3 VIEWS CLINICAL INDICATION: Fall, L shoulder pain TECHNIQUE: 3 views of the left shoulder. COMPARISON: January,. FINDINGS: Diffuse osteopenia. Slight cleavage plane in the inferomedial humeral neck-head junction without other discrete lucency may represent osteophytic spurring. No other apparent fracture or dislocation. Advanced degenerative change in the glenohumeral joint. Less severe degenerative change in the AC joint. Soft tissues grossly unremarkable. [facility] Tutu Arroyo MD - 02/09/2024 Patient Name: ADORE WALTER : 1935 Exam Date/Time: 2024 23:56 Procedure: XR PELVIS 1-2 VIEWS Ordering Provider: SCHWARZ JONATHAN Reason For Exam: Fall LEFT SHOULDER 3 VIEWS CLINICAL INDICATION: Fall, L shoulder pain TECHNIQUE: 3 views of the left shoulder. COMPARISON: January,. FINDINGS: Diffuse osteopenia. Slight cleavage plane in the inferomedial humeral neck-head junction without other discrete lucency may represent osteophytic spurring. No other apparent fracture or dislocation. Advanced degenerative change in the glenohumeral joint. Less severe degenerative change in the AC joint. Soft tissues grossly unremarkable. IMPRESSION: 1. Possible small osteophytic spur and associated cleavage plane in the humeral neck-head junction appears chronic. Correlation with point tenderness and radiographic follow-up in 3-5 days may help in further evaluation. Alternatively, correlation with CT shoulder may help in further evaluation, as indicated. 2. No other, acute osseous abnormality. 3. Degenerative change. PELVIS SINGLE VIEW CLINICAL INDICATION: Fall, pain TECHNIQUE: Single, AP view of the pelvis. COMPARISON: September,. FINDINGS: Diffuse osteopenia. Interlocking IM rods in the right femoral head-neck, and status post left total hip arthroplasty. No apparent fracture or dislocation. Advanced degenerative change in the right hip joint and visualized lower lumbar spine. Soft tissues grossly unremarkable. IMPRESSION: 1. No acute osseous abnormality. 2. Postsurgical and degenerative change. Report Dictated on Electronically Signed By: Tutu Arroyo MD Electronically Signed Date/Time: 02/09/2024 12:04 AM EDT [employer] XR Shoulder - left 2 Viewson 02-09-2024 [facility] 1935 [id number] Exam Date/Time: 2024 23:56 Procedure: XR SHOULDER 2+ VIEWS LEFT Ordering Provider: SCHWARZ JONATHAN Reason For Exam: Fall, L shoulder pain LEFT SHOULDER 3 VIEWS CLINICAL INDICATION: Fall, L shoulder pain TECHNIQUE: 3 views of the left shoulder. COMPARISON: January,. FINDINGS: Diffuse osteopenia. Slight cleavage plane in the inferomedial humeral neck-head junction without other discrete lucency may represent osteophytic spurring. No other apparent fracture or dislocation. Advanced degenerative change in the glenohumeral joint. Less severe degenerative change in the AC joint. Soft tissues grossly unremarkable. [facility] Tutu Arroyo MD - 02/09/2024 Patient Name: ADORE WALTER : 1935 Exam Date/Time: 2024 23:56 Procedure: XR SHOULDER 2+ VIEWS LEFT Ordering Provider: SCHWARZ JONATHAN Reason For Exam: Fall, L shoulder pain LEFT SHOULDER 3 VIEWS CLINICAL INDICATION: Fall, L shoulder pain TECHNIQUE: 3 views of the left shoulder. COMPARISON: January,. FINDINGS: Diffuse osteopenia. Slight cleavage plane in the inferomedial humeral neck-head junction without other discrete lucency may represent osteophytic spurring. No other apparent fracture or dislocation. Advanced degenerative change in the glenohumeral joint. Less severe degenerative change in the AC joint. Soft tissues grossly unremarkable. IMPRESSION: 1. Possible small osteophytic spur and associated cleavage plane in the humeral neck-head junction appears chronic. Correlation with point tenderness and radiographic follow-up in 3-5 days may help in further evaluation. Alternatively, correlation with CT shoulder may help in further evaluation, as indicated. 2. No other, acute osseous abnormality. 3. Degenerative change. PELVIS SINGLE VIEW CLINICAL INDICATION: Fall, pain TECHNIQUE: Single, AP view of the pelvis. COMPARISON: September,. FINDINGS: Diffuse osteopenia. Interlocking IM rods in the right femoral head-neck, and status post left total hip arthroplasty. No apparent fracture or dislocation. Advanced degenerative change in the right hip joint and visualized lower lumbar spine. Soft tissues grossly unremarkable. IMPRESSION: 1. No acute osseous abnormality. 2. Postsurgical and degenerative change. Report Dictated on Electronically Signed By: Tutu Arroyo MD Electronically Signed Date/Time: 02/09/2024 12:04 AM EDT [employer] CT Cervical spine WO contras ton 2024 Patient Name: ADORE WALTER : 1935 Exam Date/Time: 2024 23:30 Procedure: CT CERVICAL SPINE WO IV CONTRAST Ordering Provider: SCHWARZ JONATHAN Reason For Exam: Neck trauma (Age >= 65y) CT BRAIN AND CERVICAL SPINE WITHOUT CONTRAST CLINICAL INDICATION: Head trauma, minor (Age >= 65y) TECHNIQUE: CT scan of the brain and cervical spine without IV contrast. Multiplanar reformations. Dose reduction was employed with automated exposure control. COMPARISON: CT brain, October,. FINDINGS: Brain: No parenchymal mass, mass effect, hemorrhage, midline shift or hydrocephalus. No evidence of acute cortical infarct. No abnormal, extra-axial fluid or air collection. Patchy low density in the periventricular and subcortical white matter is nonspecific, but may relate to chronic small vessel ischemic change. Mild, diffuse volume loss. Osseous calvarium grossly intact. Mucosal thickening and opacification in left sphenoid sinus. Partial opacification of bilateral mastoid sinus again noted, mildly decreased on the right and increased on the left. Cervical spine: Diffuse osteopenia and kyphosis. Multilevel degenerative disc disease and spondylosis. No acute compression deformity or gross malalignment of cervical vertebral bodies. No acute fracture. No acute, osseous central spinal canal encroachment. Paraspinal soft tissues grossly unremarkable. Ovoid, heterogeneous hypodensity noted in and replacing majority of the right thyroid lobe measuring approximately 2.5 x 4.4 cm, nonspecific. [facility] Tutu Arroyo MD - 2024 Patient Name: ADORE WLATER : 1935 [facility]#: [id number] Exam Date/Time: 2024 23:30 Procedure: CT CERVICAL SPINE WO IV CONTRAST Ordering Provider: SCHWARZ JONATHAN Reason For Exam: Neck trauma (Age >= 65y) CT BRAIN AND CERVICAL SPINE WITHOUT CONTRAST CLINICAL INDICATION: Head trauma, minor (Age >= 65y) TECHNIQUE: CT scan of the brain and cervical spine without IV contrast. Multiplanar reformations. Dose reduction was employed with automated exposure control. COMPARISON: CT brain, October,. FINDINGS: Brain: No parenchymal mass, mass effect, hemorrhage, midline shift or hydrocephalus. No evidence of acute cortical infarct. No abnormal, extra-axial fluid or air collection. Patchy low density in the periventricular and subcortical white matter is nonspecific, but may relate to chronic small vessel ischemic change. Mild, diffuse volume loss. Osseous calvarium grossly intact. Mucosal thickening and opacification in left sphenoid sinus. Partial opacification of bilateral mastoid sinus again noted, mildly decreased on the right and increased on the left. Cervical spine: Diffuse osteopenia and kyphosis. Multilevel degenerative disc disease and spondylosis. No acute compression deformity or gross malalignment of cervical vertebral bodies. No acute fracture. No acute, osseous central spinal canal encroachment. Paraspinal soft tissues grossly unremarkable. Ovoid, heterogeneous hypodensity noted in and replacing majority of the right thyroid lobe measuring approximately 2.5 x 4.4 cm, nonspecific. IMPRESSION: 1. No acute intracranial findings. Chronic ischemic and atrophic changes. 2. Waxing and waning of bilateral mastoid sinus disease. 3. No acute compression deformity or apparent fracture in the cervical spine. Degenerative spondylosis. 4. Ovoid hypodensity in right thyroid lobe, indeterminate. Follow-up accordingly. Follow-up thyroid ultrasound is recommended for incidental thyroid nodule that is equal to or greater than 1.5 cm in patients 35 years of age or older. Patients with comorbidities or limited life expectancy should not have further evaluation of the thyroid nodule, unless it is warranted clinically, or specifically requested by the patient or referring physician. Reference: Mile Fraser al "Managing incidental thyroid nodules detected on imaging: White paper of the ACR incidental thyroid findings committee" [facility] Am [facility] 2015;12:143-150. Report Dictated on Electronically Signed By: Tutu Arroyo MD Electronically Signed Date/Time: 2024 11:41 PM EDT [facility] Radiology Study observation (narrative) [facility] alth CT Head WO contraston 2023 [facility] 1935 [id number] Exam Date/Time: 2024 23:29 Procedure: CT HEAD WO IV CONTRAST Ordering Provider: SCHWARZ JONATHAN Reason For Exam: Head trauma, minor (Age >= 67y) CT BRAIN AND CERVICAL SPINE WITHOUT CONTRAST CLINICAL INDICATION: Head trauma, minor (Age >= 65y) TECHNIQUE: CT scan of the brain and cervical spine without IV contrast. Multiplanar reformations. Dose reduction was employed with automated exposure control. COMPARISON: CT brain, October,. FINDINGS: Brain: No parenchymal mass, mass effect, hemorrhage, midline shift or hydrocephalus. No evidence of acute cortical infarct. No abnormal, extra-axial fluid or air collection. Patchy low density in the periventricular and subcortical white matter is nonspecific, but may relate to chronic small vessel ischemic change. Mild, diffuse volume loss. Osseous calvarium grossly intact. Mucosal thickening and opacification in left sphenoid sinus. Partial opacification of bilateral mastoid sinus again noted, mildly decreased on the right and increased on the left. Cervical spine: Diffuse osteopenia and kyphosis. Multilevel degenerative disc disease and spondylosis. No acute compression deformity or gross malalignment of cervical vertebral bodies. No acute fracture. No acute, osseous central spinal canal encroachment. Paraspinal soft tissues grossly unremarkable. Ovoid, heterogeneous hypodensity noted in and replacing majority of the right thyroid lobe measuring approximately 2.5 x 4.4 cm, nonspecific. [facility] Tutu Arroyo MD - 2024 [facility] 1935 [id number] Exam Date/Time: 2024 23:29 Procedure: CT HEAD WO IV CONTRAST Ordering Provider: SCHWARZ JONATHAN Reason For Exam: Head trauma, minor (Age >= 67y) CT BRAIN AND CERVICAL SPINE WITHOUT CONTRAST CLINICAL INDICATION: Head trauma, minor (Age >= 65y) TECHNIQUE: CT scan of the brain and cervical spine without IV contrast. Multiplanar reformations. Dose reduction was employed with automated exposure control. COMPARISON: CT brain, October,. FINDINGS: Brain: No parenchymal mass, mass effect, hemorrhage, midline shift or hydrocephalus. No evidence of acute cortical infarct. No abnormal, extra-axial fluid or air collection. Patchy low density in the periventricular and subcortical white matter is nonspecific, but may relate to chronic small vessel ischemic change. Mild, diffuse volume loss. Osseous calvarium grossly intact. Mucosal thickening and opacification in left sphenoid sinus. Partial opacification of bilateral mastoid sinus again noted, mildly decreased on the right and increased on the left. Cervical spine: Diffuse osteopenia and kyphosis. Multilevel degenerative disc disease and spondylosis. No acute compression deformity or gross malalignment of cervical vertebral bodies. No acute fracture. No acute, osseous central spinal canal encroachment. Paraspinal soft tissues grossly unremarkable. Ovoid, heterogeneous hypodensity noted in and replacing majority of the right thyroid lobe measuring approximately 2.5 x 4.4 cm, nonspecific. IMPRESSION: 1. No acute intracranial findings. Chronic ischemic and atrophic changes. 2. Waxing and waning of bilateral mastoid sinus disease. 3. No acute compression deformity or apparent fracture in the cervical spine. Degenerative spondylosis. 4. Ovoid hypodensity in right thyroid lobe, indeterminate. Follow-up accordingly. Follow-up thyroid ultrasound is recommended for incidental thyroid nodule that is equal to or greater than 1.5 cm in patients 35 years of age or older. Patients with comorbidities or limited life expectancy should not have further evaluation of the thyroid nodule, unless it is warranted clinically, or specifically requested by the patient or referring physician. Reference: Mile Yuan. et al "Managing incidental thyroid nodules detected on imaging: White paper of the ACR incidental thyroid findings committee" [facility]iol 2015;12:143-150. Report Dictated on Electronically Signed By: Tutu Arroyo MD Electronically Signed Date/Time: 2024 11:41 PM EDT [facility] Radiology Study observation (narrative) Summ [facility] al[facility] No Panel Informationon 02-07 1. No acute intracranial findings. Chronic ischemic and atrophic changes. 2. Waxing and waning of bilateral mastoid sinus disease. 3. No acute compression deformity or apparent fracture in the cervical spine. Degenerative spondylosis. 4. Ovoid hypodensity in right thyroid lobe, indeterminate. Follow-up accordingly. Follow-up thyroid ultrasound is recommended for incidental thyroid nodule that is equal to or greater than 1.5 cm in patients 35 years of age or older. Patients with comorbidities or limited life expectancy should not have further evaluation of the thyroid nodule, unless it is warranted clinically, or specifically requested by the patient or referring physician. Reference: Mile Yuan. et al "Managing incidental thyroid nodules detected on imaging: White paper of the ACR incidental thyroid findings committee" J Am [facility]iol 2015;12:143-150. Report Dictated on Electronically Signed By: Tutu Arroyo MD Electronically Signed Date/Time: 2024 11:41 PM EDT [facility] No Panel InformationOrdered By: Tutu Arroyo on 2024 [facility] [employer] Work Phone: XR Pelvis 1 or 2 [facility] Radiology Study observation (narrative) [facility] He alth XR Shoulder - left 2 [facility] 2024 Radiology Study observation (narrative) [facility] Basic metabolic 1998 panelon 11-14-2023 Anion gap [Moles/Vol] 6 mmol/L 3 - 13 mmol/L [facility] [employer] Calcium [Mass/Vol] 9.2 mg/dL 8.4 - 10. 4 mg/dL [facility] [employer] Chloride [Moles/Vol] 108 mmol/L High 98 - 10 7 mmol/L [facility] [employer] CO2 [Moles/Vol] 21 mmol/L Low 22 - 30 mmol/L [facility] Creatinine [Mass/Vol] 0.64 mg/dL 0.52 - 1.04 mg/dL [facility] GFR/1.73 sq M.predicted MDRD (S/P/Bld) [Vol rate/Area] 86.2 mL/min/{1.73_m2} - PINF [facility] Comment on above: Calculation based on the Chronic Kidney Disease Epidemiology Collaboration (CKD-EPI) equation refit without adjustment for race Glucose [Mass/Vol] 86 mg/dL 70 - 100 mg/dL [facility] Interpretation and review of laboratory results Abnormal [facility] Potassium [Moles/Vol] 4.1 mmol/L 3.5 - 5.1 mmol/L [facility] Sodium [Moles/Vol] 134 mmol/L Low 135 - 145 mmol/L [facility] [employer] Urea nitrogen [Mass/Vol] 9 mg/dL 7 - 17 mg/dL [facility] [employer] CBC panel Auto (Bld)on 11-13 Erythrocyte distribution width (RBC) [Ratio] 14.6 % 11.5 - 15.0 % [facility] Hematocrit (Bld) [Volume fraction] 35.7 % 35.0 - 47.0 % [facility] Hemoglobin (Bld) [Mass/Vol] 11.4 g/dL Low 11.7 - 16.0 g/dL [facility] Interpretation and review of laboratory results Abnormal [facility] MCH (RBC) [Entitic mass] 28.4 pg 26. 0 - 34.0 pg [facility] MCHC (RBC) [Mass/Vol] 31.9 % 30.5 - 36.0 % [facility] MCV (RBC) [Entitic vol] 89.0 fL 77.0 - 99.0 fL [facility] Platelet mean volume (Bld) [Entitic vol] 9.3 fL 9.0 - 12.7 fL [facility] Platelets (Bld) [#/Vol] 371 10*3/uL 140 - 440 10*3/uL [facility] RBC (Bld) [#/Vol] 4.01 10*6/uL 3.80 - 5.2 0 10*6/uL [facility] WBC (Bld) [#/Vol] 5.6 10*3/uL 3.6 - 10.7 10*3/uL [facility] Free T4 [Mass/Vol]on 024 Free T4 Dialysis [Mass/Vol] 2.57 ng/dL High 0.78 - 2.19 ng/dL [facility] Interpretation and review of laboratory results Abnormal [facility] Laboratory - Chemistry and C hemistry - challengeon 11-14-2023 Ammonia (P) [Moles/Vol] 14 umol/L 9 - 30 umol/L [facility] Laboratory - Drug toxicology Ordered By: Mitra Nurse on 11-14-2023 Amphetamines Ql (U) Negative Negative [facility] Barbiturates screen method Nom (U) Negative Negative [facility] Benzodiazepines screen method Nom (U) Negative Negative [facility] Cocaine Ql (U) Negative Negative [facility] th Ethanol [Mass/Vol] Negative Negative [facility] Methadone Ql (U) Negative Negative [facility] alth Opiates Screen Ql (U) Negative Negative [facility] No Panel InformationOrdered By: Mitra Nurse on 11-14-2023 BUPRENORPHINE SCREEN Negative Negative [facility] FENTANYL Negative Negative [facility] OXYCODONE/OXYMORPHONE Negative Negative [facility] PCP Negative Negative [facility] THC Negative Negative [facility] The expected value f or the drugs listed above is Negative. The following drugs or drug groups have been screened for by Immunoassay at the following thresholds: Amphetamine class(1000ng/mL) Barbituates(200ng/mL) Benzodiazepines(200ng/ mL) Cocaine(300ng/mL) Ethanol (50 ng/mL) Methadone(300ng/mL) Opiates(300ng/mL) Oxycodone(100ng/mL) PCP(25ng/mL) Buprenorphine(5ng/mL) THC(50ng/mL) Fentanyl(1ng/mL) Positive results are NOT confirmed by a more specific alternative method unless requested. If confirmation is needed, request confirmation under separate order. NOTE: These results are for medical treatment only. Analysis performed using non-forensic procedures. [facility] [employer] No Panel Informationon 11-13 Interpretation and review of laboratory results Normal [facility] [employer] Sinus tachycardia Ventricular premature complex Aberrant conduction of SV complex(es) Low voltage, extremity leads Electronically Signed On 11-14-2023 00:08:39 EDT by Gurmeet Bae, - 11/14/2023 IMPRESSION: Sinus tachycardia Ventricular premature complex Aberrant conduction of SV complex(es) Low voltage, extremity leads Electronically Signed On 11-14-2023 00:08:39 EDT by Gurmeet Abreu [facility] [employer] No Panel InformationOrdered By: Gurmeet Abreu on 11-14-2023 P Mcintyre 46 degrees [employer] Work Phone: IN Interval 152 ms [employer] Work Phone: QRS Mcintyre -30 degrees [employer] Work Phone: QRSD Interval 83 ms [employer] Work Phone: QT Interval 341 ms [employer] Work Phone: QTC Interval 457 ms [employer] Work Phone: T Wave Mcintyre 50 degrees [employer] Work Phone: [employer] Work Phone: US Head and neck soft tissue on 11-14-2023 Patient Name: ADORE WALTER : 1935 Exam Date/Time: 11/14/2023 13:36 Procedure: US HEAD NECK SOFT TISSUE Ordering Provider: BARAKAT RACHEL Reason For Exam: THYROID NODULE ULTRASOUND THYROID: CLINICAL INDICATION: Thyroid nodule. TECHNIQUE: Ultrasonographic evaluation of the thyroid including color flow imaging. COMPARISON: Correlation is made with CT chest, abdomen and pelvis dated 10/23/2023. FINDINGS: Exam is limited as patient was agitated and could not hold still for exam. RIGHT LOBE: Size: Normal size. 3.5 x 2.7 x 4.9 cm (AP x transverse x sagittal). Heterogeneous echotexture. Nodules: 1 Nodule Location: Mid right thyroid nodule Size: 2.5 x 2.7 x 3.1 cm (AP, transverse, sagittal) Composition: Solid (+2) Echogenicity: Hypoechoic (+2) Margins: Ill-defined (0) Calcifications: None (0) TI-RADS score*: 4 - moderately suspicious Change since last exam: Not applicable LEFT LOBE: Size: Normal size. 1.5 x 1.1 x 3.5 cm (AP x transverse x sagittal). Heterogeneous echotexture. Nodules: 1 Nodule Location: Mid left thyroid gland Size: 0.3 x 0.4 x 0.4 cm (AP, transverse, sagittal) Composition: Solid (+2) Echogenicity: Hypoechoic (+2) Margins: Ill-defined (0) Calcifications: None (0) TI-RADS score*: 4 - moderately suspicious Change since last exam: Not applicable ISTHMUS: Normal. CERVICAL LYMPH NODES: None identified. [facility] Jens Chavez DO - 11/14/2023 Patient Name: ADORE WALTER : 1935 Exam Date/Time: 11/14/2023 13:36 Procedure: US HEAD NECK SOFT TISSUE Ordering Provider: BARAKAT RACHEL Reason For Exam: THYROID NODULE ULTRASOUND THYROID: CLINICAL INDICATION: Thyroid nodule. TECHNIQUE: Ultrasonographic evaluation of the thyroid including color flow imaging. COMPARISON: Correlation is made with CT chest, abdomen and pelvis dated 10/23/2023. FINDINGS: Exam is limited as patient was agitated and could not hold still for exam. RIGHT LOBE: Size: Normal size. 3.5 x 2.7 x 4.9 cm (AP x transverse x sagittal). Heterogeneous echotexture. Nodules: 1 Nodule Location: Mid right thyroid nodule Size: 2.5 x 2.7 x 3.1 cm (AP, transverse, sagittal) Composition: Solid (+2) Echogenicity: Hypoechoic (+2) Margins: Ill-defined (0) Calcifications: None (0) TI-RADS score*: 4 - moderately suspicious Change since last exam: Not applicable LEFT LOBE: Size: Normal size. 1.5 x 1.1 x 3.5 cm (AP x transverse x sagittal). Heterogeneous echotexture. Nodules: 1 Nodule Location: Mid left thyroid gland Size: 0.3 x 0.4 x 0.4 cm (AP, transverse, sagittal) Composition: Solid (+2) Echogenicity: Hypoechoic (+2) Margins: Ill-defined (0) Calcifications: None (0) TI-RADS score*: 4 - moderately suspicious Change since last exam: Not applicable ISTHMUS: Normal. CERVICAL LYMPH NODES: None identified. IMPRESSION: 1. Limited evaluation of the thyroid gland due to uncooperative patient. 2. Heterogeneous thyroid gland. 3. 3.1 cm right mid thyroid hypoechoic nodule (TIRAD 4-moderately suspicious). This nodule is amenable to fine-needle aspiration. 4. 0.4 cm left mid thyroid hypoechoic nodule (TIRAD 4-moderately suspicious). This nodule is less than 1 cm and does not require follow-up.. *TI-RADS (2017) Reference: Ralph Coyle. ACR Thyroid Imaging, Reporting and Data System (TI-RADS): White Paper of the ACR TI-RADS Committee. J Am [facility]. October 2016 Thyroid nodule details (add points for total score): Composition(points): 1 - mixed cystic and solid 2 - solid Echogenicity: 1 - hyperechoic or isoechoic 2 - hypoechoic 3 - very hypoechoic Shape: 3 - taller than wide Margin: 2 - lobulated or irregular 3 - extrathyroidal extension Echogenic foci: 1 - macrocalcifications 2 - rim calcification 3 - microcalcifications Risk for malignancy: TI-RADS 1: 0 points - (benign) <2% risk TI-RADS 2: 2 points - (not suspicious) <5% TI-RADS 3: 3 points - (mildly suspicious) <5% FNA when >/= 2.5cm Follow when >1.5cm at 1, 3 and 5 years TI-RADS 4: 4-6 points - (moderately suspicious) 5-20% FNA when >/= 1.5cm Follow when >1.0cm at 1, 2, 3 and 5 years TI-RADS 5: 7+ points - (highly suspicious) >20% FNA when >/= 1.0cm Follow when >0.5cm every year for up to 5 years Please note: There are other existing guidelines to classify thyroid nodules to determine need for FNA; and this decision will be deferred to the ordering physician. Note: "There are existing guidelines to classify the thyroid nodule(s) and determine need for FNA and this decision will be deferred to the ordering clinician". Report Dictated on Electronically Signed By: Jens Chavez DO Electronically Signed Date/Time: 11/14/2023 1:55 PM EDT [facility] Radiology Study observation (narrative) [facility] Vital signsOrdered By: David Abreu on 11-14-2023 Heart rate 108 /min bpm [facility] Work Phone: CBC W Auto Differential pane l (Bld)on 11-13-2023 Basophils (Bld) [#/Vol] 0.0 10*3/uL 0.0 - 0.2 10*3/uL [facility] Basophils/100 WBC (Bld) 0.3 % 0.0 - 2.0 % [facility] Eosinophils (Bld) [#/Vol] 0.1 10*3/uL 0.0 - 0.5 10*3/uL [facility] Eosinophils/100 WBC (Bld) 2.2 % 0.0 - 6.0 % [facility] Erythrocyte distribution width (RBC) [Ratio] 14.6 % 11.5 - 15.0 % [facility] Hematocrit (Bld) [Volume fraction] 37.5 % 35.0 - 47.0 % [facility] Hemoglobin (Bld) [Mass/Vol] 11.9 g/dL 11.7 - 16.0 g/dL [facility] [employer] Immature granulocytes (Bld) [#/Vol] 0.1 10*3/uL High NINF - 0.1 10*3/uL [facility] [employer] Immature granulocytes/100 WBC (Bld) 0.9 % 0.0 - 2.0 % [facility] [employer] Interpretation and review of laboratory results Abnormal [facility] [employer] Lymphocytes (Bld) [#/Vol] 2.2 10*3/uL 1.0 - 4.3 10*3/uL [facility] [employer] Lymphocytes/100 WBC (Bld) 37.8 % 15.0 - 45.0 % [facility] [employer] MCH (RBC) [Entitic mass] 28.5 pg 26. 0 - 34.0 pg [facility] [employer] MCHC (RBC) [Mass/Vol] 31.7 % 30.5 - 36.0 % [facility] [employer] MCV (RBC) [Entitic vol] 89.7 fL 77.0 - 99.0 fL [facility] [employer] Monocytes (Bld) [#/Vol] 0.6 10*3/uL 0.0 - 0.9 10*3/uL [facility] [employer] Monocytes/100 WBC (Bld) 9.8 % 5.0 - 13.0 % [facility] [employer] Neutrophils (Bld) [#/Vol] 2.9 10*3/uL 1.8 - 7.5 10*3/uL [facility] [employer] Neutrophils/100 WBC (Bld) 49.0 % 38.0 - 82.0 % [facility] [employer] Nucleated RBC/100 WBC (Bld) [Ratio] 0.0 % [facility] [employer] Platelet mean volume (Bld) [Entitic vol] 9.3 fL 9.0 - 12.7 fL [facility] [employer] Platelets (Bld) [#/Vol] 385 10*3/uL 140 - 440 10*3/uL [facility] [facility] [employer] RBC (Bld) [#/Vol] 4.18 10*6/uL 3.80 - 5.2 0 10*6/uL [facility] [employer] WBC (Bld) [#/Vol] 5.8 10*3/uL 3.6 - 10.7 10*3/uL [facility] CRP [Mass/Vol]on 11-13-2023 Interpretation and review of laboratory results Normal [facility] [employer]erCR[employer] CT Head WO contraston 2023 No acute intracrania l process. Cerebral atrophy and chronic small vessel ischemic disease. Left maxillary and bilateral sphenoid sinus mucosal thickening. Chronic bilateral mastoiditis, unchanged. Report Dictated on Electronically Signed By: Jens Chavez DO Electronically Signed Date/Time: 11/13/2023 1:28 PM EDT [facility] Patient Name: ADORE WALTER : 1935 Exam Date/Time: 11/13/2023 13:26 Procedure: CT HEAD WO IV CONTRAST Ordering Provider: SUMMERS QUENTIN Reason For Exam: Mental status change, unknown cause CT HEAD WITHOUT CONTRAST: CLINICAL INDICATION: Mental status change. COMPARISON: 10/23/2023. TECHNIQUE: [address] images through the brain. Sagittal and coronal reformatted images provided. Dose reduction was employed with automated exposure control. FINDINGS: Ventricles and extra-axial spaces: Mild prominence of cerebral ventricles, cisterns and sulci for age, compatible with mild cerebral atrophy. No extra-axial fluid collection. Cerebral and cerebellar parenchyma: Scattered nonspecific foci of low density in periventricular and subcortical white matter for age, compatible with chronic small vessel disease.. No mass, mass effect or acute cortical infarct. No intracranial hemorrhage or brainstem abnormality. Visualized paranasal sinuses: Left maxillary and bilateral sphenoid sinus mucosal thickening Mastoid air cells: Fluid is identified within bilateral mastoid air cells, unchanged from prior exam. Visualized orbits: Normal. Calvarium and skull base: Normal. Other: None. [facility] Jens Chavez DO - 11/13/2023 Patient Name: ADORE WALTER : 1935 Exam Date/Time: 11/13/2023 13:26 Procedure: CT HEAD WO IV CONTRAST Ordering Provider: SUMMERS QUENTIN Reason For Exam: Mental status change, unknown cause CT HEAD WITHOUT CONTRAST: CLINICAL INDICATION: Mental status change. COMPARISON: 10/23/2023. TECHNIQUE: [address] images through the brain. Sagittal and coronal reformatted images provided. Dose reduction was employed with automated exposure control. FINDINGS: Ventricles and extra-axial spaces: Mild prominence of cerebral ventricles, cisterns and sulci for age, compatible with mild cerebral atrophy. No extra-axial fluid collection. Cerebral and cerebellar parenchyma: Scattered nonspecific foci of low density in periventricular and subcortical white matter for age, compatible with chronic small vessel disease.. No mass, mass effect or acute cortical infarct. No intracranial hemorrhage or brainstem abnormality. Visualized paranasal sinuses: Left maxillary and bilateral sphenoid sinus mucosal thickening Mastoid air cells: Fluid is identified within bilateral mastoid air cells, unchanged from prior exam. Visualized orbits: Normal. Calvarium and skull base: Normal. Other: None. IMPRESSION: No acute intracranial process. Cerebral atrophy and chronic small vessel ischemic disease. Left maxillary and bilateral sphenoid sinus mucosal thickening. Chronic bilateral mastoiditis, unchanged. Report Dictated on Electronically Signed By: Jens Chavez DO Electronically Signed Date/Time: 11/13/2023 1:28 PM EDT [facility] Radiology Study observation (narrative) [facility] alth CT Head WO contrastOrdered B y: Jens Chavez on 11-13-2023 [facility] Work Phone: Comprehensive metabolic 1998 panelon 11-13-2023 Albumin [Mass/Vol] 3.5 g/dL 3.5 - 5.0 g/dL [facility] ALP [Catalytic activity/Vol] 75 U/L 38 - 126 U/L [facility] ALT [Catalytic activity/Vol] 11 U/L 0 - 34 U/L [facility] Anion gap [Moles/Vol] 6 mmol/L 3 - 13 mmol/L [facility] AST [Catalytic activity/Vol] 23 U/L 15 - 46 U/L [facility] Bilirubin [Mass/Vol] 1.1 mg/dL 0.2 - 1 .3 mg/dL [facility] Calcium [Mass/Vol] 10.0 mg/dL 8.4 - 10. 4 mg/dL [facility] Chloride [Moles/Vol] 104 mmol/L 98 - 10 7 mmol/L [facility] CO2 [Moles/Vol] 25 mmol/L 22 - 30 mmol/L [facility] Creatinine [Mass/Vol] 0.73 mg/dL 0.52 - 1.04 mg/dL [facility] GFR/1.73 sq M.predicted MDRD (S/P/Bld) [Vol rate/Area] 80.2 mL/min/{1.73_m2} - PINF [facility] Comment on above: Calculation based on the Chronic Kidney Disease Epidemiology Collaboration (CKD-EPI) equation refit without adjustment for race Glucose [Mass/Vol] 108 mg/dL High 70 - 100 mg/dL [facility] Interpretation and review of laboratory results Abnormal [facility] Potassium [Moles/Vol] 4.5 mmol/L 3.5 - 5.1 mmol/L [facility] Protein [Mass/Vol] 6.5 g/dL 6.3 - 8.2 g/dL [facility] Sodium [Moles/Vol] 136 mmol/L 135 - 145 mmol/L [facility] Urea nitrogen [Mass/Vol] 9 mg/dL 7 - 17 mg/dL [facility] Free T3 [Mass/Vol]on Interpretation and review of laboratory results Normal [facility] Laboratory - Chemistry and C hemistry - challengeon 11-13-2023 Free T3 [Mass/Vol] 4.49 pg/mL 2.77 - 5. 27 pg/mL [facility] Cortisol [Mass/Vol] 14.2 ug/dL [facility] Cobalamin (Vitamin B12) [Mass/Vol] 841 pg/mL 239 - 931 pg/mL [facility] Folate [Mass/Vol] 7.0 ng/mL 2.9 - PINF ng/mL [facility] Procalcitonin [Mass/Vol] 0.03 ng/mL 0.0 0 - 0.09 ng/mL [facility] TSH Qn Low [facility] CRP [Mass/Vol] 7.4 mg/L NINF - 10.0 mg/L [facility] Troponin I.cardiac [Mass/Vol] ng/mL NINF - 0.034 ng/mL [facility] Base excess Calc (BldV) [Moles/Vol] -0.4000 mmol/L -3.0 - 3.0 mmol/L [facility] CO2 (BldV) [Partial pressure] 43.2 mm[Hg] [facility] CO2 [Moles/Vol] 26.2 mmol/L 24.0 - 28.0 mmol/L [facility] HCO3 (Bld) [Moles/Vol] 24.9 mmol/L 23.0 - 27.0 mmol/L [facility] Oxygen (BldV) [Partial pressure] 41.1 mm[Hg] [facility] pH (BldV) 7.378 [pH] 7.330 - 7.430 [facility] Laboratory - Hematology and Cell countson 11-13-2023 Hemoglobin (Bld) [Mass/Vol] 12.7 g/dL Screen Only [facility] MR Brain WO contraston 11-12 1. Atrophy and likely chronic small vessel ischemic changes. No acute intracranial finding. 2. 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 Consider MRA for further evaluation if indicated. 3. Fluid in the mastoid air cells bilaterally may relate to mastoiditis. Report Dictated on Electronically Signed By: Stefan June MD Electronically Signed Date/Time: 11/13/2023 9:29 PM EDT [facility] [employer] [facility] Patient Name: ADORE WALTER : 1935 Exam Date/Time: 11/13/2023 21:03 Procedure: MR BRAIN WO CONTRAST Ordering Provider: LAWRENCE CURTIS Reason For Exam: Mental status change, unknown cause MRI OF THE BRAIN WITHOUT GADOLINIUM CLINICAL INDICATION: Mental status change, unknown cause TECHNIQUE: Routine MRI of the brain without gadolinium. COMPARISON: None FINDINGS: Moderate diffuse atrophy. No acute infarct seen on diffusion-weighted imaging. No hydrocephalus. No effacement of the basal cisterns. Fluid in the mastoid air cells bilaterally. There are patchy and confluent areas of T2 bright signal in the periventricular and subcortical white matter, which are nonspecific, but may relate to chronic small vessel ischemic changes. No pathologic extra-axial fluid collection identified. No hemorrhage, mass effect, or midline shift. Major intracranial flow voids are visualized. There is a possible anterior communicating artery aneurysm measuring about 5.2 x 4.8 mm. [facility] [employer] [facility] Stefan June MD - 11/13/2023 Patient Name: ADORE WALTER : 1935 Exam Date/Time: 11/13/2023 21:03 Procedure: MR BRAIN WO CONTRAST Ordering Provider: LAWRENCE CURTIS Reason For Exam: Mental status change, unknown cause MRI OF THE BRAIN WITHOUT GADOLINIUM CLINICAL INDICATION: Mental status change, unknown cause TECHNIQUE: Routine MRI of the brain without gadolinium. COMPARISON: None FINDINGS: Moderate diffuse atrophy. No acute infarct seen on diffusion-weighted imaging. No hydrocephalus. No effacement of the basal cisterns. Fluid in the mastoid air cells bilaterally. There are patchy and confluent areas of T2 bright signal in the periventricular and subcortical white matter, which are nonspecific, but may relate to chronic small vessel ischemic changes. No pathologic extra-axial fluid collection identified. No hemorrhage, mass effect, or midline shift. Major intracranial flow voids are visualized. There is a possible anterior communicating artery aneurysm measuring about 5.2 x 4.8 mm. IMPRESSION: 1. Atrophy and likely chronic small vessel ischemic changes. No acute intracranial finding. 2. 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 Consider MRA for further evaluation if indicated. 3. Fluid in the mastoid air cells bilaterally may relate to mastoiditis. Report Dictated on Electronically Signed By: Stefan June MD Electronically Signed Date/Time: 11/13/2023 9:29 PM EDT [facility] Radiology Study observation (narrative) Rodrigo Bloom chau No Panel Informationon 11-12 Before 10am 4.5-22.7 ug/dL After 5pm 1.7-14.1 ug/dL [facility] Interpretation and review of laboratory results Normal [facility] Source Of Oxygen Room Air [facility] alth Interpret with caution, pO2 value falsely increased due to vacuum in tube. For accurate results, please draw on a syringe. [facility] Procalcitonin [Mass/Vol]on 0 11-13-2023 Interpretation and review of laboratory results Normal [facility] PCT <0.50 = Low risk of severe sepsis and/or septic shock. PCT >2.00 = High risk of severe sepsis and/or septic shock. [facility] TSH Qnon 11-13-2023 Interpretation and review of laboratory results Abnormal [facility] Troponin I.cardiac [Mass/Vol ]on 11-13-2023 Interpretation and review of laboratory results Normal [facility] Patients with high levels of Biotin oral intake (ie >5 mg/day) may have falsely decreased Troponin levels. [facility] Urinalysis complete panel (U )Ordered By: Palak Santos on 11-13-2023 Bacteria LM.HPF (Urine sed) [#/Area] Negative Negative /HPF [facility] Bilirubin Ql (U) Negative Negative mg/dL [facility] Clarity (U) Clear Clear [facility] Color (U) Light Yellow Lt. Yellow [facility] Epithelial cells.squamous LM.HPF (Urine sed) [#/Area] 0-2 [facility] h Glucose Ql (U) Normal Normal (<70) mg/dL [facility] Hemoglobin Ql (U) 0.03 mg/dL Abnormal Negative [facility] ealth Hyaline casts Auto (Urine sed) [#/Area] Negative Negative /LPF [facility] Interpretation and review of laboratory results Abnormal [facility] Ketones (U) [Mass/Vol] Negative Negat quentin mg/dL [facility] Leukocyte esterase Test strip Ql (U) 250 Abnormal Negative Jonnathan/uL [facility] Mucus LM.HPF (Urine sed) [#/Area] Few Negative /LPF [facility] Nitrite Ql (U) Negative Negative [facility] th pH (U) 6.0 [pH] 5.0 - 8.0 pH [facility] Protein (U) [Mass/Vol] 20 mg/dL Abnormal Negative [facility] RBC LM.HPF (Urine sed) [#/Area] 0-2 [facility] Specific gravity (U) [Rel density] 1.015 1.005 - 1.030 [facility] Urobilinogen (U) [Mass/Vol] Normal Normal (0-1) mg/dL [facility] WBC LM.HPF (Urine sed) [#/Area] 11-25 Abnormal [facility] Vital signson 11-13-2023 Oxygen saturation in Venous blood 71.6 % 60.0 - 80.0 % [facility] XR Abdomen Single viewon 1. Nonspecific bowel gas pattern. Report Dictated on Electronically Signed By: Stefan June MD Electronically Signed Date/Time: 11/13/2023 6:49 PM [facility] Patient Name: ADORE WALTER : 1935 Exam Date/Time: 11/13/2023 18:57 Procedure: XR ABDOMEN 1 VIEW Ordering Provider: LAWRENCE CURTIS Reason For Exam: METABOLIC ENCEPHALOPATHY SINGLE VIEW ABDOMEN CLINICAL INDICATION: METABOLIC ENCEPHALOPATHY TECHNIQUE: Single view abdomen x-ray COMPARISON: None FINDINGS: Nonspecific bowel gas pattern. No indirect evidence of free air. No suspicious calcifications. [facility] Stefan June MD - 11/13/2023 Patient Name: ADORE WALTER : 1935 Exam Date/Time: 11/13/2023 18:57 Procedure: XR ABDOMEN 1 VIEW Ordering Provider: LAWRENCE CURTIS Reason For Exam: METABOLIC ENCEPHALOPATHY SINGLE VIEW ABDOMEN CLINICAL INDICATION: METABOLIC ENCEPHALOPATHY TECHNIQUE: Single view abdomen x-ray COMPARISON: None FINDINGS: Nonspecific bowel gas pattern. No indirect evidence of free air. No suspicious calcifications. IMPRESSION: 1. Nonspecific bowel gas pattern. Report Dictated on Electronically Signed By: Stefan June MD Electronically Signed Date/Time: 11/13/2023 6:49 PM EDT [facility] Radiology Study observation (narrative) [facility] chau XR Abdomen Single viewOrdere d By: Stefan June on 11-13-2023 [facility] [employer] Work Phone: XR Chest Single viewon 11-12 Linear atelectasis within the left lower lung zone along with bilateral chronic interstitial changes. No new areas of consolidation or effusion. Report Dictated on Electronically Signed By: Ricki Feliz MD Electronically Signed Date/Time: 11/13/2023 12:21 PM EDT [facility] Patient Name: ADORE WALTER : 1935 Exam Date/Time: 11/13/2023 12:16 Procedure: XR CHEST 1 VIEW Ordering Provider: SUMMERS QUENTIN Reason For Exam: ALTERED MENTAL STATUS CLINICAL INDICATION: ALTERED MENTAL STATUS COMPARISON: 10/24/2023 TECHNIQUE: Single portable AP radiograph of the chest. FINDINGS: LUNGS/PLEURA:There is linear atelectasis overlying the left midlung zone. The lungs are otherwise clear. Deviation of trachea to the right is unchanged. No pneumothorax. MEDIASTINUM:Heart size and mediastinal contours are normal. VASCULARITY: Normal BONES:Degenerative changes of both glenohumeral joints. SUPPORT LINES: None OTHER: [facility] Yoli Feliz MD - 11/13/2023 Patient Name: ADORE WALTER : 1935 Exam Date/Time: 11/13/2023 12:16 Procedure: XR CHEST 1 VIEW Ordering Provider: SUMMERS QUENTIN Reason For Exam: ALTERED MENTAL STATUS CLINICAL INDICATION: ALTERED MENTAL STATUS COMPARISON: 10/24/2023 TECHNIQUE: Single portable AP radiograph of the chest. FINDINGS: LUNGS/PLEURA:There is linear atelectasis overlying the left midlung zone. The lungs are otherwise clear. Deviation of trachea to the right is unchanged. No pneumothorax. MEDIASTINUM:Heart size and mediastinal contours are normal. VASCULARITY: Normal BONES:Degenerative changes of both glenohumeral joints. SUPPORT LINES: None OTHER: IMPRESSION: Linear atelectasis within the left lower lung zone along with bilateral chronic interstitial changes. No new areas of consolidation or effusion. Report Dictated on Electronically Signed By: Ricki Feliz MD Electronically Signed Date/Time: 11/13/2023 12:21 PM EDT [facility] [employer] Radiology Study observation (narrative) [facility] XR Chest Single viewOrdered By: Yoli Feliz on 11-13-2023 [employer] Work Phone: CBC W Auto Differential pane l (Bld)on 10-29-2023 Basophils (Bld) [#/Vol] 0.0 10*3/uL 0.0 - 0.2 10*3/uL [employer] Basophils/100 WBC (Bld) 0.2 % 0.0 - 2.0 % [facility] Eosinophils (Bld) [#/Vol] 0.0 10*3/uL 0.0 - 0.5 10*3/uL [facility] Eosinophils/100 WBC (Bld) 0.7 % 0.0 - 6.0 % [facility] Erythrocyte distribution width (RBC) [Ratio] 14.3 % 11.5 - 15.0 % [facility] Hematocrit (Bld) [Volume fraction] 35.6 % 35.0 - 47.0 % [facility] Hemoglobin (Bld) [Mass/Vol] 11.6 g/dL Low 11.7 - 16.0 g/dL [facility] Immature granulocytes (Bld) [#/Vol] 0.0 10*3/uL NINF - 0.1 10*3/uL [facility] Immature granulocytes/100 WBC (Bld) 0.9 % 0.0 - 2.0 % [facility] Interpretation and review of laboratory results Abnormal [facility] Lymphocytes (Bld) [#/Vol] 2.0 10*3/uL 1.0 - 4.3 10*3/uL [facility] Lymphocytes/100 WBC (Bld) 44.0 % 15.0 - 45.0 % [facility] MCH (RBC) [Entitic mass] 29.3 pg 26. 0 - 34.0 pg [facility] MCHC (RBC) [Mass/Vol] 32.6 % 30.5 - 36.0 % [facility] MCV (RBC) [Entitic vol] 89.9 fL 77.0 - 99.0 fL [facility] Monocytes (Bld) [#/Vol] 0.5 10*3/uL 0.0 - 0.9 10*3/uL [facility] Monocytes/100 WBC (Bld) 9.8 % 5.0 - 13.0 % [facility] Neutrophils (Bld) [#/Vol] 2.1 10*3/uL 1.8 - 7.5 10*3/uL [facility] Neutrophils/100 WBC (Bld) 44.4 % 38.0 - 82.0 % [facility] Nucleated RBC/100 WBC (Bld) [Ratio] 0.0 % [facility] Platelet mean volume (Bld) [Entitic vol] 9.5 fL 9.0 - 12.7 fL [facility] Platelets (Bld) [#/Vol] 206 10*3/uL 140 - 440 10*3/uL [facility] RBC (Bld) [#/Vol] 3.96 10*6/uL 3.80 - 5.2 0 10*6/uL [facility] WBC (Bld) [#/Vol] 4.6 10*3/uL 3.6 - 10.7 10*3/uL [facility] Comprehensive metabolic 1998 panelon 10-29-2023 Albumin [Mass/Vol] 2.7 g/dL Low 3.5 - 5.0 g/dL [facility] ALP [Catalytic activity/Vol] 46 U/L 38 - 126 U/L [facility] ALT [Catalytic activity/Vol] 27 U/L 0 - 34 U/L [facility] Anion gap [Moles/Vol] 4 mmol/L 3 - 13 mmol/L [facility] AST [Catalytic activity/Vol] 37 U/L 15 - 46 U/L [facility] Bilirubin [Mass/Vol] 0.6 mg/dL 0.2 - 1 .3 mg/dL [facility] Calcium [Mass/Vol] 8.4 mg/dL 8.4 - 10. 4 mg/dL [facility] Chloride [Moles/Vol] 106 mmol/L 98 - 10 7 mmol/L [facility] CO2 [Moles/Vol] 27 mmol/L 22 - 30 mmol/L [facility] Creatinine [Mass/Vol] 0.83 mg/dL 0.52 - 1.04 mg/dL [facility] GFR/1.73 sq M.predicted MDRD (S/P/Bld) [Vol rate/Area] 68.8 mL/min/{1.73_m2} - PINF [facility] Comment on above: Calculation based on the Chronic Kidney Disease Epidemiology Collaboration (CKD-EPI) equation refit without adjustment for race Glucose [Mass/Vol] 82 mg/dL 70 - 100 mg/dL [facility] Interpretation and review of laboratory results Abnormal [facility] Potassium [Moles/Vol] 3.3 mmol/L Low 3.5 - 5.1 mmol/L [facility] Protein [Mass/Vol] 4.9 g/dL Low 6.3 - 8.2 g/dL [facility] Sodium [Moles/Vol] 136 mmol/L 135 - 145 mmol/L [facility] Urea nitrogen [Mass/Vol] 11 mg/dL 7 - 17 mg/dL [facility] Laboratory - Chemistry and C hemistry - challengeon 10-29-2023 Magnesium [Mass/Vol] 2.0 mg/dL 1.6 - 2 .3 mg/dL [facility] Magnesium [Mass/Vol]on 10-28 Interpretation and review of laboratory results Normal [facility] No Panel Informationon 10-28 Insertion of right-sided dual-lumen power injectable PICC, with tip in the expected location of the cavoatrial junction. Plan: The catheter may be used immediately. PROCEDURE SUMMARY: - Venous access with ultrasound guidance - PICC insertion with fluoroscopic guidance - Additional procedure(s): None PROCEDURE DETAILS: Pre-procedure Consent: Informed consent for the procedure including risks, benefits and alternatives was obtained and time-out was performed prior to the procedure. Preparation (MIPS): The site was prepared and draped using all elements of maximal sterile barrier technique including sterile gloves, sterile gown, cap, mask, large sterile sheet, sterile ultrasound probe cover, hand hygiene and cutaneous antisepsis with 2% chlorhexidine or iodine cleanser. Anesthesia/sedation No sedation administered. Access Local anesthesia was administered. The vessel was sonographically evaluated and determined to be patent. Real time ultrasound was used to visualize needle entry into the vessel and a permanent image was stored. Vein accessed: Right basilic Access technique: Micropuncture set with 21 gauge needle Venography Indication for venography: Not performed Vein catheterized: Not applicable Findings: Not applicable Catheter placement The catheter was trimmed to appropriate length and placed into the vein under fluoroscopic guidance via a peel-away sheath. Catheter tip location was fluoroscopically verified and a permanent image was stored. Catheter was secured with a StatLock device and a sterile dressing was applied. Catheter placed: 5 Fr dual lumen PICC Catheter intravascular length (cm): 38 Catheter tip position: Cavoatrial Junction. Catheter flush: Heparin (100 units/mL) Catheter securement technique: Stat-Lock Contrast Contrast agent: None Contrast volume (mL): 0 Radiation Dose Fluoroscopy time (minutes): 0.1 Fluoroscopy dose: Ka,r = 0 mGy Angiographic runs: 0 Fluoroscopic spot images: 0 Fluoroscopic saved images were obtained. These images do NOT add additional exposure to ionizing radiation and were captured electronically from the imaging chain. Additional Details Additional description of procedure: None Equipment details: None Specimens removed: None Estimated blood loss (mL): Less than 10 Report Dictated on Electronically Signed By: Lima Ashley PA-C Electronically Signed Date/Time: 10/29/2023 10:49 AM EDT [facility] [employer] [facility] Patient Name: ADORE WALTER : 1935 Exam Date/Time: 10/29/2023 09:49 Procedure: IR CVC PICC PLACEMENT Ordering Provider: CASAREZ JONATHAN Reason For Exam: ANTIBIOTIC THERAPY PROCEDURE: Peripherally Inserted Central Catheter (PICC) placement Procedural Personnel Advanced Practice Provider: Lima Ashley PA-C Attending physician(s): Atilio Amato M.D. Window Dresser: Lima Ashley PA-C Attending physician was available in the department if needed. Indication: IV Access needed for extended antibiotics Additional clinical history: None Complications: No immediate complications. [facility] Lima Ashley PA-C - 10/29/2023 Patient Name: ADORE WALTER : 1935 Exam Date/Time: 10/29/2023 09:49 Procedure: IR CVC PICC PLACEMENT Ordering Provider: CASAREZ JONATHAN Reason For Exam: ANTIBIOTIC THERAPY PROCEDURE: Peripherally Inserted Central Catheter (PICC) placement Procedural Personnel Advanced Practice Provider: Lima Ashley PA-C Attending physician(s): Atilio Amato M.D. Window Dresser: Lima Ashley PA-C Attending physician was available in the department if needed. Indication: IV Access needed for extended antibiotics Additional clinical history: None Complications: No immediate complications. IMPRESSION: Insertion of right-sided dual-lumen power injectable PICC, with tip in the expected location of the cavoatrial junction. Plan: The catheter may be used immediately. PROCEDURE SUMMARY: - Venous access with ultrasound guidance - PICC insertion with fluoroscopic guidance - Additional procedure(s): None PROCEDURE DETAILS: Pre-procedure Consent: Informed consent for the procedure including risks, benefits and alternatives was obtained and time-out was performed prior to the procedure. Preparation (MIPS): The site was prepared and draped using all elements of maximal sterile barrier technique including sterile gloves, sterile gown, cap, mask, large sterile sheet, sterile ultrasound probe cover, hand hygiene and cutaneous antisepsis with 2% chlorhexidine or iodine cleanser. Anesthesia/sedation No sedation administered. Access Local anesthesia was administered. The vessel was sonographically evaluated and determined to be patent. Real time ultrasound was used to visualize needle entry into the vessel and a permanent image was stored. Vein accessed: Right basilic Access technique: Micropuncture set with 21 gauge needle Venography Indication for venography: Not performed Vein catheterized: Not applicable Findings: Not applicable Catheter placement The catheter was trimmed to appropriate length and placed into the vein under fluoroscopic guidance via a peel-away sheath. Catheter tip location was fluoroscopically verified and a permanent image was stored. Catheter was secured with a StatLock device and a sterile dressing was applied. Catheter placed: 5 Fr dual lumen PICC Catheter intravascular length (cm): 38 Catheter tip position: Cavoatrial Junction. Catheter flush: Heparin (100 units/mL) Catheter securement technique: Stat-Lock Contrast Contrast agent: None Contrast volume (mL): 0 Radiation Dose Fluoroscopy time (minutes): 0.1 Fluoroscopy dose: Ka,r = 0 mGy Angiographic runs: 0 Fluoroscopic spot images: 0 Fluoroscopic saved images were obtained. These images do NOT add additional exposure to ionizing radiation and were captured electronically from the imaging chain. Additional Details Additional description of procedure: None Equipment details: None Specimens removed: None Estimated blood loss (mL): Less than 10 Report Dictated on Electronically Signed By: Lima Ashley PA-C Electronically Signed Date/Time: 10/29/2023 10:49 AM EDT [facility] Radiology Study observation (narrative) [facility] He alth [facility] [employer] No Panel InformationOrdered By: Lima Ashley on 10-29-2023 [facility] [employer] Work Phone: Bacteria identified Cx Nom ( Bld)Ordered By: Primo Azar on 10-28-2023 Interpretation and review of laboratory results Abnormal [facility] Blood Collection Sit e: Right Arm [facility] CBC W Auto Differential pane l (Bld)on 10-28-2023 Basophils (Bld) [#/Vol] 0.0 10*3/uL 0.0 - 0.2 10*3/uL [facility] [employer] Basophils/100 WBC (Bld) 0.0 % 0.0 - 2.0 % [facility] [employer] Eosinophils (Bld) [#/Vol] 0.0 10*3/uL 0.0 - 0.5 10*3/uL [facility] [employer] Eosinophils/100 WBC (Bld) 0.2 % 0.0 - 6.0 % [facility] [employer] Erythrocyte distribution width (RBC) [Ratio] 14.7 % 11.5 - 15.0 % [facility] [employer] Hematocrit (Bld) [Volume fraction] 31.3 % Low 35.0 - 47.0 % [facility] Hemoglobin (Bld) [Mass/Vol] 10.4 g/dL Low 11.7 - 16.0 g/dL [facility] [employer] Immature granulocytes (Bld) [#/Vol] 0.0 10*3/uL NINF - 0.1 10*3/uL [facility] [employer] Immature granulocytes/100 WBC (Bld) 0.5 % 0.0 - 2.0 % [facility] Interpretation and review of laboratory results Abnormal [facility] Lymphocytes (Bld) [#/Vol] 2.1 10*3/uL 1.0 - 4.3 10*3/uL [facility] [employer] Lymphocytes/100 WBC (Bld) 47.2 % High 15.0 - 45.0 % [facility] MCH (RBC) [Entitic mass] 29.2 pg 26. 0 - 34.0 pg [facility] MCHC (RBC) [Mass/Vol] 33.2 % 30.5 - 36.0 % [facility] MCV (RBC) [Entitic vol] 87.9 fL 77.0 - 99.0 fL [facility] Monocytes (Bld) [#/Vol] 0.4 10*3/uL 0.0 - 0.9 10*3/uL [facility] Monocytes/100 WBC (Bld) 9.0 % 5.0 - 13.0 % [facility] Neutrophils (Bld) [#/Vol] 1.9 10*3/uL 1.8 - 7.5 10*3/uL [facility] Neutrophils/100 WBC (Bld) 43.1 % 38.0 - 82.0 % [facility] Nucleated RBC/100 WBC (Bld) [Ratio] 0.0 % [facility] Platelet mean volume (Bld) [Entitic vol] 9.4 fL 9.0 - 12.7 fL [facility] Platelets (Bld) [#/Vol] 166 10*3/uL 140 - 440 10*3/uL [facility] RBC (Bld) [#/Vol] 3.56 10*6/uL Low 3.80 - 5.2 0 10*6/uL [facility] WBC (Bld) [#/Vol] 4.3 10*3/uL 3.6 - 10.7 10*3/uL [facility] Comprehensive metabolic 1998 panelon 10-28-2023 Albumin [Mass/Vol] 2.5 g/dL Low 3.5 - 5.0 g/dL [facility] ALP [Catalytic activity/Vol] 41 U/L 38 - 126 U/L [facility] ALT [Catalytic activity/Vol] 26 U/L 0 - 34 U/L [facility] Anion gap [Moles/Vol] 1 mmol/L Low 3 - 13 mmol/L [facility] AST [Catalytic activity/Vol] 46 U/L 15 - 46 U/L [facility] Bilirubin [Mass/Vol] 0.5 mg/dL 0.2 - 1 .3 mg/dL [facility] Calcium [Mass/Vol] 8.1 mg/dL Low 8.4 - 10. 4 mg/dL [facility] Chloride [Moles/Vol] 110 mmol/L High 98 - 10 7 mmol/L [facility] CO2 [Moles/Vol] 24 mmol/L 22 - 30 mmol/L [facility] Creatinine [Mass/Vol] 0.89 mg/dL 0.52 - 1.04 mg/dL [facility] GFR/1.73 sq M.predicted MDRD (S/P/Bld) [Vol rate/Area] 63.2 mL/min/{1.73_m2} - PINF [facility] Comment on above: Calculation based on the Chronic Kidney Disease Epidemiology Collaboration (CKD-EPI) equation refit without adjustment for race Glucose [Mass/Vol] 73 mg/dL 70 - 100 mg/dL [facility] Potassium [Moles/Vol] 3.5 mmol/L 3.5 - 5.1 mmol/L [facility] Protein [Mass/Vol] 4.5 g/dL Low 6.3 - 8.2 g/dL [facility] Sodium [Moles/Vol] 136 mmol/L 135 - 145 mmol/L [facility] Urea nitrogen [Mass/Vol] 16 mg/dL 7 - 17 mg/dL [facility] Laboratory - Chemistry and C hemistry - challengeon 10-28-2023 Magnesium [Mass/Vol] 2.0 mg/dL 1.6 - 2 .3 mg/dL [facility] Laboratory - Microbiology an d Antimicrobial susceptibilityOrdered By: Primo Azar on 10-28-2023 Bacteria identified Cx Nom (Bld) Streptococcus parasanguinis Critically abnormal [facility] Comment on above: For identification a nd/or sensitivity, refer to culture collected on: 10/24/23 @ 0022 ([id number]). This is an edited result. Previous organism was Gram-positive cocci on 10/24/2023 at 2119 EDT. Bacteria identified Cx Nom (Bld) Rothia mucilaginosa Critically abnormal [facility] Comment on above: Contamination likely unless additional blood culture sets are found to be positive with the same organism. Magnesium [Mass/Vol]on 10-27 Interpretation and review of laboratory results Normal [facility] No Panel Informationon 10-27 Interpretation and review of laboratory results Abnormal [facility] Phosphate [Moles/Vol]on 10-01 Phosphate [Mass/Vol] 2.0 mg/dL Low 2.5 - 4 .5 mg/dL [facility] CBC W Auto Differential pane l (Bld)on 10-27-2023 Basophils (Bld) [#/Vol] 0.0 10*3/uL 0.0 - 0.2 10*3/uL [facility] Basophils/100 WBC (Bld) 0.2 % 0.0 - 2.0 % [facility] Eosinophils (Bld) [#/Vol] 0.0 10*3/uL 0.0 - 0.5 10*3/uL [facility] Eosinophils/100 WBC (Bld) 0.0 % 0.0 - 6.0 % [facility] Erythrocyte distribution width (RBC) [Ratio] 14.4 % 11.5 - 15.0 % [facility] Hematocrit (Bld) [Volume fraction] 30.4 % Low 35.0 - 47.0 % [facility] Hemoglobin (Bld) [Mass/Vol] 10.0 g/dL Low 11.7 - 16.0 g/dL [facility] Immature granulocytes (Bld) [#/Vol] 0.1 10*3/uL High NINF - 0.1 10*3/uL [facility] Immature granulocytes/100 WBC (Bld) 1.0 % 0.0 - 2.0 % [facility] Interpretation and review of laboratory results Abnormal [facility] Lymphocytes (Bld) [#/Vol] 1.7 10*3/uL 1.0 - 4.3 10*3/uL [facility] Lymphocytes/100 WBC (Bld) 32.5 % 15.0 - 45.0 % [facility] MCH (RBC) [Entitic mass] 29.0 pg 26. 0 - 34.0 pg [facility] MCHC (RBC) [Mass/Vol] 32.9 % 30.5 - 36.0 % [facility] MCV (RBC) [Entitic vol] 88.1 fL 77.0 - 99.0 fL [facility] Monocytes (Bld) [#/Vol] 0.5 10*3/uL 0.0 - 0.9 10*3/uL [facility] Monocytes/100 WBC (Bld) 9.6 % 5.0 - 13.0 % [facility] Neutrophils (Bld) [#/Vol] 2.9 10*3/uL 1.8 - 7.5 10*3/uL [facility] Neutrophils/100 WBC (Bld) 56.7 % 38.0 - 82.0 % [facility] Nucleated RBC/100 WBC (Bld) [Ratio] 0.0 % [facility] Platelet mean volume (Bld) [Entitic vol] 9.7 fL 9.0 - 12.7 fL [facility] Platelets (Bld) [#/Vol] 195 10*3/uL 140 - 440 10*3/uL [facility] RBC (Bld) [#/Vol] 3.45 10*6/uL Low 3.80 - 5.2 0 10*6/uL [facility] WBC (Bld) [#/Vol] 5.1 10*3/uL 3.6 - 10.7 10*3/uL [facility] Comprehensive metabolic 1998 panelon 10-27-2023 Albumin [Mass/Vol] 2.5 g/dL Low 3.5 - 5.0 g/dL [facility] ALP [Catalytic activity/Vol] 42 U/L 38 - 126 U/L [facility] ALT [Catalytic activity/Vol] 21 U/L 0 - 34 U/L [facility] Anion gap [Moles/Vol] 3 mmol/L 3 - 13 mmol/L [facility] AST [Catalytic activity/Vol] 43 U/L 15 - 46 U/L [facility] Bilirubin [Mass/Vol] 0.5 mg/dL 0.2 - 1 .3 mg/dL [facility] Calcium [Mass/Vol] 8.0 mg/dL Low 8.4 - 10. 4 mg/dL [facility] Chloride [Moles/Vol] 110 mmol/L High 98 - 10 7 mmol/L [facility] CO2 [Moles/Vol] 23 mmol/L 22 - 30 mmol/L [facility] Creatinine [Mass/Vol] 0.85 mg/dL 0.52 - 1.04 mg/dL [facility] GFR/1.73 sq M.predicted MDRD (S/P/Bld) [Vol rate/Area] 66.8 mL/min/{1.73_m2} - PINF [facility] Comment on above: Calculation based on the Chronic Kidney Disease Epidemiology Collaboration (CKD-EPI) equation refit without adjustment for race Glucose [Mass/Vol] 84 mg/dL 70 - 100 mg/dL [facility] Potassium [Moles/Vol] 3.4 mmol/L Low 3.5 - 5.1 mmol/L [facility] Protein [Mass/Vol] 4.7 g/dL Low 6.3 - 8.2 g/dL [facility] Sodium [Moles/Vol] 136 mmol/L 135 - 145 mmol/L [facility] Urea nitrogen [Mass/Vol] 19 mg/dL High 7 - 17 mg/dL [facility] Laboratory - Chemistry and C hemistry - challengeon 10-27-2023 Magnesium [Mass/Vol] 2.2 mg/dL 1.6 - 2 .3 mg/dL [facility] Magnesium [Mass/Vol]on 10-26 Interpretation and review of laboratory results Normal [facility] No Panel Informationon 10-26 Interpretation and review of laboratory results Abnormal [facility] Phosphate [Moles/Vol]on 10-01 Phosphate [Mass/Vol] 1.7 mg/dL Low 2.5 - 4 .5 mg/dL [facility] Bacteria identified Cx Nom ( Bld)Ordered By: Ximena Clark on 10-26-2023 Interpretation and review of laboratory results Abnormal [facility] Blood Collection Sit e: Right Arm [facility] CBC W Auto Differential pane l (Bld)on 10-26-2023 Basophils (Bld) [#/Vol] 0.0 10*3/uL 0.0 - 0.2 10*3/uL [facility] Basophils/100 WBC (Bld) 0.2 % 0.0 - 2.0 % [facility] Eosinophils (Bld) [#/Vol] 0.0 10*3/uL 0.0 - 0.5 10*3/uL [facility] Eosinophils/100 WBC (Bld) 0.0 % 0.0 - 6.0 % [facility] Erythrocyte distribution width (RBC) [Ratio] 14.5 % 11.5 - 15.0 % [facility] Hematocrit (Bld) [Volume fraction] 32.1 % Low 35.0 - 47.0 % [facility] Hemoglobin (Bld) [Mass/Vol] 10.5 g/dL Low 11.7 - 16.0 g/dL [facility] Immature granulocytes (Bld) [#/Vol] 0.0 10*3/uL NINF - 0.1 10*3/uL [facility] Immature granulocytes/100 WBC (Bld) 0.6 % 0.0 - 2.0 % [facility] Interpretation and review of laboratory results Abnormal [facility] Lymphocytes (Bld) [#/Vol] 1.0 10*3/uL 1.0 - 4.3 10*3/uL [facility] Lymphocytes/100 WBC (Bld) 15.6 % 15.0 - 45.0 % [facility] MCH (RBC) [Entitic mass] 28.8 pg 26. 0 - 34.0 pg [facility] MCHC (RBC) [Mass/Vol] 32.7 % 30.5 - 36.0 % [facility] MCV (RBC) [Entitic vol] 88.2 fL 77.0 - 99.0 fL [facility] Monocytes (Bld) [#/Vol] 0.3 10*3/uL 0.0 - 0.9 10*3/uL [facility] Monocytes/100 WBC (Bld) 4.5 % Low 5.0 - 13.0 % [facility] Neutrophils (Bld) [#/Vol] 5.2 10*3/uL 1.8 - 7.5 10*3/uL [facility] Neutrophils/100 WBC (Bld) 79.1 % 38.0 - 82.0 % [facility] Nucleated RBC/100 WBC (Bld) [Ratio] 0.0 % [facility] Platelet mean volume (Bld) [Entitic vol] 9.5 fL 9.0 - 12.7 fL [facility] Platelets (Bld) [#/Vol] 208 10*3/uL 140 - 440 10*3/uL [facility] RBC (Bld) [#/Vol] 3.64 10*6/uL Low 3.80 - 5.2 0 10*6/uL [facility] WBC (Bld) [#/Vol] 6.6 10*3/uL 3.6 - 10.7 10*3/uL [facility] Comprehensive metabolic 1998 panelon 10-26-2023 Albumin [Mass/Vol] 2.9 g/dL Low 3.5 - 5.0 g/dL [facility] ALP [Catalytic activity/Vol] 49 U/L 38 - 126 U/L [facility] ALT [Catalytic activity/Vol] 16 U/L 0 - 34 U/L [facility] Anion gap [Moles/Vol] 5 mmol/L 3 - 13 mmol/L [facility] AST [Catalytic activity/Vol] 37 U/L 15 - 46 U/L [facility] Bilirubin [Mass/Vol] 0.6 mg/dL 0.2 - 1 .3 mg/dL [facility] Calcium [Mass/Vol] 8.3 mg/dL Low 8.4 - 10. 4 mg/dL [facility] Chloride [Moles/Vol] 107 mmol/L 98 - 10 7 mmol/L [facility] CO2 [Moles/Vol] 24 mmol/L 22 - 30 mmol/L [facility] Creatinine [Mass/Vol] 1.00 mg/dL 0.52 - 1.04 mg/dL [facility] GFR/1.73 sq M.predicted MDRD (S/P/Bld) [Vol rate/Area] 55.0 mL/min/{1.73_m2} Low - PINF [facility] Comment on above: Calculation based on the Chronic Kidney Disease Epidemiology Collaboration (CKD-EPI) equation refit without adjustment for race Glucose [Mass/Vol] 108 mg/dL High 70 - 100 mg/dL [facility] Potassium [Moles/Vol] 3.2 mmol/L Low 3.5 - 5.1 mmol/L [facility] Protein [Mass/Vol] 5.3 g/dL Low 6.3 - 8.2 g/dL [facility] Sodium [Moles/Vol] 135 mmol/L 135 - 145 mmol/L [facility] Urea nitrogen [Mass/Vol] 20 mg/dL High 7 - 17 mg/dL [facility] Laboratory - Chemistry and C hemistry - challengeon 10-26-2023 Magnesium [Mass/Vol] 2.1 mg/dL 1.6 - 2 .3 mg/dL [facility] Laboratory - Drug toxicology on 10-26-2023 Vancomycin [Mass/Vol] 17.4 ug/mL 15.0 - 20.0 ug/mL [facility] Laboratory - Microbiology an d Antimicrobial susceptibilityOrdered By: Ximena Clark on 10-26-2023 Bacteria identified Cx Nom (Bld) Streptococcus parasanguinis Critically abnormal [facility] Comment on above: This is an edited result. Previous organism was Gram-positive cocci on 10/24/2023 at 2306 EDT. Magnesium [Mass/Vol]on 10-25 Interpretation and review of laboratory results Normal [facility] No Panel InformationOrdered By: Anjel Barrientos on 10-26-2023 P Mcintyre 52 degrees [employer] Work Phone: IN Interval 157 ms [facility] Work Phone: QRS Mcintyre -35 degrees [employer] Work Phone: QRSD Interval 116 ms [facility] [employer] Work Phone: QT Interval 491 ms [employer] Work Phone: QTC Interval 490 ms [facility] [employer] Work Phone: T Wave Mcintyre 45 degrees [employer] Work Phone: [facility] [employer] Work Phone: No Panel Informationon 10-25 Sinus rhythm Atrial premature complexes Nonspecific intraventricular conduction delay Low voltage, extremity and precordial leads Borderline prolonged QT interval Electronically Signed On 10-26-2023 13:22:23 EDT by Anjel Barrientos CV Anjel Beckford MD - 10/26/2023 IMPRESSION: Sinus rhythm Atrial premature complexes Nonspecific intraventricular conduction delay Low voltage, extremity and precordial leads Borderline prolonged QT interval Electronically Signed On 10-26-2023 13:22:23 EDT by Anjel Barrientos [facility] Interpretation and review of laboratory results Abnormal [facility] [employer] Interpretation and review of laboratory results Normal [facility] [employer] Phosphate [Moles/Vol]on 10-01 Phosphate [Mass/Vol] 2.3 mg/dL Low 2.5 - 4 .5 mg/dL [facility] Vital signsOrdered By: eMgan Barrientos on 10-26-2023 Heart rate 61 /min bpm [facility] [employer] Work Phone: Bacteria identified Aer cx N om (Lower resp)on 10-25-2023 Gram Stain Result Moderate Epithelial cells per low power field Abnormal [facility] [employer] Gram Stain Result Few Polymorphonuclea r leukocytes per low power field Abnormal [facility] Gram Stain Result Positive Abnormal [facility] ealt Gram Stain Result Smear contains >= 15 squamous cells per low power field, suggestive of poor quality. Culture not performed. Please re-collect if clinically indicated. Abnormal [facility] Interpretation and review of laboratory results Abnormal [facility] [employer] Bacteria identified Cx Nom ( U)Ordered By: Minda Handy on 10-25-2023 Interpretation and review of laboratory results Normal [facility] CBC W Auto Differential pane l (Bld)on 10-25-2023 Basophils (Bld) [#/Vol] 0.0 10*3/uL 0.0 - 0.2 10*3/uL [facility] Basophils/100 WBC (Bld) 0.1 % 0.0 - 2.0 % [facility] Eosinophils (Bld) [#/Vol] 0.0 10*3/uL 0.0 - 0.5 10*3/uL [facility] Eosinophils/100 WBC (Bld) 0.0 % 0.0 - 6.0 % [facility] Erythrocyte distribution width (RBC) [Ratio] 14.4 % 11.5 - 15.0 % [facility] Hematocrit (Bld) [Volume fraction] 32.7 % Low 35.0 - 47.0 % [facility] Hemoglobin (Bld) [Mass/Vol] 10.9 g/dL Low 11.7 - 16.0 g/dL [facility] Immature granulocytes (Bld) [#/Vol] 0.1 10*3/uL High NINF - 0.1 10*3/uL [facility] Immature granulocytes/100 WBC (Bld) 0.6 % 0.0 - 2.0 % [facility] Interpretation and review of laboratory results Abnormal [facility] Lymphocytes (Bld) [#/Vol] 1.2 10*3/uL 1.0 - 4.3 10*3/uL [facility] Lymphocytes/100 WBC (Bld) 14.4 % Low 15.0 - 45.0 % [facility] MCH (RBC) [Entitic mass] 29.1 pg 26. 0 - 34.0 pg [facility] MCHC (RBC) [Mass/Vol] 33.3 % 30.5 - 36.0 % [facility] MCV (RBC) [Entitic vol] 87.4 fL 77.0 - 99.0 fL [facility] Monocytes (Bld) [#/Vol] 0.4 10*3/uL 0.0 - 0.9 10*3/uL [facility] Monocytes/100 WBC (Bld) 5.2 % 5.0 - 13.0 % [facility] Neutrophils (Bld) [#/Vol] 6.5 10*3/uL 1.8 - 7.5 10*3/uL [facility] Neutrophils/100 WBC (Bld) 79.7 % 38.0 - 82.0 % [facility] Nucleated RBC/100 WBC (Bld) [Ratio] 0.0 % [facility] Platelet mean volume (Bld) [Entitic vol] 9.6 fL 9.0 - 12.7 fL [facility] Platelets (Bld) [#/Vol] 228 10*3/uL 140 - 440 10*3/uL [facility] RBC (Bld) [#/Vol] 3.74 10*6/uL Low 3.80 - 5.2 0 10*6/uL [facility] WBC (Bld) [#/Vol] 8.1 10*3/uL 3.6 - 10.7 10*3/uL [facility] Comprehensive metabolic 1998 panelon 10-25-2023 Albumin [Mass/Vol] 2.9 g/dL Low 3.5 - 5.0 g/dL [facility] ALP [Catalytic activity/Vol] 56 U/L 38 - 126 U/L [facility] ALT [Catalytic activity/Vol] 13 U/L 0 - 34 U/L [facility] Anion gap [Moles/Vol] 8 mmol/L 3 - 13 mmol/L [facility] AST [Catalytic activity/Vol] 30 U/L 15 - 46 U/L [facility] Bilirubin [Mass/Vol] 0.6 mg/dL 0.2 - 1 .3 mg/dL [facility] Calcium [Mass/Vol] 8.3 mg/dL Low 8.4 - 10. 4 mg/dL [facility] Chloride [Moles/Vol] 108 mmol/L High 98 - 10 7 mmol/L [facility] CO2 [Moles/Vol] 18 mmol/L Low 22 - 30 mmol/L [facility] Creatinine [Mass/Vol] 1.27 mg/dL High 0.52 - 1.04 mg/dL [facility] GFR/1.73 sq M.predicted MDRD (S/P/Bld) [Vol rate/Area] 41.3 mL/min/{1.73_m2} Low - PINF [facility] Comment on above: Calculation based on the Chronic Kidney Disease Epidemiology Collaboration (CKD-EPI) equation refit without adjustment for race Glucose [Mass/Vol] 129 mg/dL High 70 - 100 mg/dL [facility] Interpretation and review of laboratory results Abnormal [facility] Potassium [Moles/Vol] 3.3 mmol/L Low 3.5 - 5.1 mmol/L [facility] Protein [Mass/Vol] 5.4 g/dL Low 6.3 - 8.2 g/dL [facility] Sodium [Moles/Vol] 133 mmol/L Low 135 - 145 mmol/L [facility] Urea nitrogen [Mass/Vol] 26 mg/dL High 7 - 17 mg/dL [facility] Laboratory - Drug toxicology on 10-25-2023 Vancomycin trough [Mass/Vol] 11.5 ug/mL Low 15.0 - 20.0 ug/mL [facility] Laboratory - Microbiology an d Antimicrobial susceptibilityon 10-25-2023 Bacteria identified Aer cx Nom (Lower resp) Culture canceled due to poor specimen quality. Recollect if clinically indicated. [facility] Laboratory - Microbiology an d Antimicrobial susceptibilityOrdered By: Minda Handy on 10-25-2023 Bacteria identified Cx Nom (U) Multiple species present; probable contamination; repeat suggested [facility] MRSA DNA MARVIN+probe Ql (Nose) on 10-25-2023 Interpretation and review of laboratory results Normal [facility] mecA gene Not detected Not Detected [facility] Staphylococcus aureus Not detected Not Detected [facility] No Staphylococcus aureus detected. Negative nasal MRSA PCR has a high negative predictive value for MRSA pneumonia. Consider stopping Vancomycin if no other clinical indication. Contact Antimicrobial Stewardship for further recommendations. Staphylococcus aureus nasal screen by real-time PCR. This test was modified and its performance characteristics determined by [facility] Microbiology Service. The [place] Food and Drug Administration has not approved or cleared this test; however, FDA clearance or approval is not currently required for clinical use. The results are not intended to be used as the sole means for clinical diagnosis or patient management decisions. [facility] Vancomycin trough [Mass/Vol] on 10-25-2023 Interpretation and review of laboratory results Abnormal [facility] CBC W Auto Differential pane l (Bld)on 10-24-2023 Basophils (Bld) [#/Vol] 0.0 10*3/uL 0.0 - 0.2 10*3/uL [facility] Basophils/100 WBC (Bld) 0.0 % 0.0 - 2.0 % [facility] Eosinophils (Bld) [#/Vol] 0.0 10*3/uL 0.0 - 0.5 10*3/uL [facility] Eosinophils/100 WBC (Bld) 0.0 % 0.0 - 6.0 % [facility] Erythrocyte distribution width (RBC) [Ratio] 14.5 % 11.5 - 15.0 % [facility] Hematocrit (Bld) [Volume fraction] 34.0 % Low 35.0 - 47.0 % [facility] Hemoglobin (Bld) [Mass/Vol] 11.2 g/dL Low 11.7 - 16.0 g/dL [facility] Immature granulocytes (Bld) [#/Vol] 0.0 10*3/uL NINF - 0.1 10*3/uL [facility] Immature granulocytes/100 WBC (Bld) 0.5 % 0.0 - 2.0 % [facility] Interpretation and review of laboratory results Abnormal [facility] Lymphocytes (Bld) [#/Vol] 1.9 10*3/uL 1.0 - 4.3 10*3/uL [facility] Lymphocytes/100 WBC (Bld) 22.4 % 15.0 - 45.0 % [facility] MCH (RBC) [Entitic mass] 29.7 pg 26. 0 - 34.0 pg [facility] MCHC (RBC) [Mass/Vol] 32.9 % 30.5 - 36.0 % [facility] MCV (RBC) [Entitic vol] 90.2 fL 77.0 - 99.0 fL [facility] Monocytes (Bld) [#/Vol] 0.7 10*3/uL 0.0 - 0.9 10*3/uL [facility] Monocytes/100 WBC (Bld) 8.4 % 5.0 - 13.0 % [facility] Neutrophils (Bld) [#/Vol] 5.8 10*3/uL 1.8 - 7.5 10*3/uL [facility] Neutrophils/100 WBC (Bld) 68.7 % 38.0 - 82.0 % [facility] Nucleated RBC/100 WBC (Bld) [Ratio] 0.0 % [facility] Platelet mean volume (Bld) [Entitic vol] 9.5 fL 9.0 - 12.7 fL [facility] Platelets (Bld) [#/Vol] 214 10*3/uL 140 - 440 10*3/uL [facility] RBC (Bld) [#/Vol] 3.77 10*6/uL Low 3.80 - 5.2 0 10*6/uL [facility] WBC (Bld) [#/Vol] 8.5 10*3/uL 3.6 - 10.7 10*3/uL [facility] Comprehensive metabolic 1998 panelon 10-24-2023 Albumin [Mass/Vol] 2.9 g/dL Low 3.5 - 5.0 g/dL [facility] ALP [Catalytic activity/Vol] 55 U/L 38 - 126 U/L [facility] ALT [Catalytic activity/Vol] 11 U/L 0 - 34 U/L [facility] Anion gap [Moles/Vol] 8 mmol/L 3 - 13 mmol/L [facility] AST [Catalytic activity/Vol] 25 U/L 15 - 46 U/L [facility] Bilirubin [Mass/Vol] 0.6 mg/dL 0.2 - 1 .3 mg/dL [facility] Calcium [Mass/Vol] 8.2 mg/dL Low 8.4 - 10. 4 mg/dL [facility] Chloride [Moles/Vol] 107 mmol/L 98 - 10 7 mmol/L [facility] CO2 [Moles/Vol] 19 mmol/L Low 22 - 30 mmol/L [facility] Creatinine [Mass/Vol] 1.97 mg/dL High 0.52 - 1.04 mg/dL [facility] GFR/1.73 sq M.predicted MDRD (S/P/Bld) [Vol rate/Area] 24.4 mL/min/{1.73_m2} Low - PINF [facility] Comment on above: Calculation based on the Chronic Kidney Disease Epidemiology Collaboration (CKD-EPI) equation refit without adjustment for race Glucose [Mass/Vol] 144 mg/dL High 70 - 100 mg/dL [facility] Interpretation and review of laboratory results Abnormal [facility] Potassium [Moles/Vol] 3.5 mmol/L 3.5 - 5.1 mmol/L [facility] Protein [Mass/Vol] 5.2 g/dL Low 6.3 - 8.2 g/dL [facility] Sodium [Moles/Vol] 133 mmol/L Low 135 - 145 mmol/L [facility] Urea nitrogen [Mass/Vol] 31 mg/dL High 7 - 17 mg/dL [facility] Free T4 [Mass/Vol]on 024 Free T4 Dialysis [Mass/Vol] 1.52 ng/dL 0.78 - 2.19 ng/dL [facility] Interpretation and review of laboratory results Normal [facility] Laboratory - Chemistry and C hemistry - challengeon 10-24-2023 Procalcitonin [Mass/Vol] 15.67 ng/mL High 0.0 0 - 0.09 ng/mL [facility] Troponin I.cardiac [Mass/Vol] 0.463 ng/mL Critically high NINF - 0.034 ng/mL [facility] Lactate [Moles/Vol] 0.7 mmol/L 0.7 - 2. 0 mmol/L [facility] Troponin I.cardiac [Mass/Vol] 0.544 ng/mL Critically high NINF - 0.034 ng/mL [facility] Base excess Calc (BldV) [Moles/Vol] -5.5000 mmol/L Low -3 - 3 mmol/L [facility] CO2 (BldV) [Partial pressure] 46.5 mm[Hg] [facility] HCO3 (Bld) [Moles/Vol] 21.4 mmol/L Low 23.0 - 27.0 mmol/L [facility] Oxygen (BldV) [Partial pressure] 40.8 mm[Hg] mm Hg [facility] pH (BldV) 7.270 [pH] Low 7.330 - 7.430 pH [facility] Base excess Calc (Bld) [Moles/Vol] -6.3000 mmol/L Low -3.0 - 3.0 mmol/L [facility] CO2 (Bld) [Partial pressure] 38.3 mm[Hg] [facility] HCO3 (Bld) [Moles/Vol] 19.4 mmol/L Low 21.0 - 25.0 mmol/L [facility] Oxygen (Bld) [Partial pressure] 90.8 mm[Hg] [facility] pH (Bld) 7.313 [pH] Low 7.350 - 7.450 pH [facility] TSH Qn 0.082 m[IU]/L Low [facility] - Chemistry and C hemistry - challengeOrdered By: Asaf Arzate on 10-24-2023 Troponin I.cardiac [Mass/Vol] 0.756 ng/mL Critically high NINF - 0.034 ng/mL [facility] No Panel InformationOrdered By: Marily Jones on 10-24-2023 Interpretation and review of laboratory results Abnormal [facility] Streptococcus species Detected Abnormal Not Detected [facility] Methodology: Multipl ex PCR The [employer] panel can detect the following organisms: E. faecalis, E. faecium, Staphylococcus spp., S. aureus, S. epidermidis, S. lugdunensis, Streptococcus spp., S. pyogenes (Group A), S. agalactiae (Group B), S. pneumoniae, A. baumannii complex, B. fragilis, H. influenzae, N. meningitidis, P. aeruginosa, S. maltophilia, Enterobacterales, E. cloacae complex, E. coli, K. aerogenes, K. oxytoca, K. pneumoniae, Proteus spp., Salmonella spp., S. marcescens, C. albicans, C. auris, C. glabrata, C. krusei, C. parapsilosis, C. tropicalis, and C. neoformans/gattii. The following antimicrobial resistance genes are reported if appropriate organisms are detected: mecA/C and Chitra/B. The following antimicrobial resistance genes are reported if detected and the appropriate organisms are detected: CTX-M, IMP, KPC, NDM, OXA-48-like, VIM, and mcr-1. [facility] No Panel InformationOrdered By: Gideon Umaña on 10-24-2023 Interpretation and review of laboratory results Normal [facility] Legionella pneumophila Ag Not detected Not Detected [facility] Streptococcus pneumoniae Ag Not detected Not Detected [facility] Methodology: Lateral flow enzyme immunoassay This assay is approved for detection of antigens to Streptococcus pneumoniae and Legionella pneumophila serogroup 1; however, other L. pneumophila serogroups may also be detected. [facility] No Panel Informationon 10-23 Interpretation and review of laboratory results Normal [facility] FIO2 [facility] Interpretation and review of laboratory results Abnormal [facility] Performed by: Rodrigo Gilliam [facility], [address] [place] [id number] CLIA ID: [id number] [facility] FIO2 [facility] Interpretation and review of laboratory results Abnormal [facility] Performed by: [facility], [address] [place] [id number] CLIA ID: [id number] [facility] BRADEN Medina RN, CNP 10/24/2023 2:36 AM Central Line Insertion Date/Time: 10/24/2023 2:35 AM Performed by: ADARSH Medina CNP Authorized by: ADARSH Medina CNP Consent: Consent was not able to be obtained because the procedure was emergent or the patient was unable to give consent and a surrogate decision maker was not available. Timeout: Completed immediately prior to the start of the procedure which included verification of the correct patient, correct site and agreement on the procedure to be done. Indication: Infusion(s) with high risk of extravasation injury Anesthetic: Local anesthetic used: lidocaine without epinephrine Procedure Details: Preparation: skin prepped with chlorhexidine Skin prep agent dried: skin prep agent completely dried prior to procedure Sterile barriers: all five maximum sterile barriers used - cap, mask, sterile gown, sterile gloves, and large sterile sheet Hand hygiene: hand hygiene performed prior to central venous catheter insertion Sterile technique: Sterile technique maintained throughout procedure. Central Line Type: central venous catheter Orientation: right Location details: internal jugular Patient position: Trendelenburg Catheter type: triple lumen Catheter size: 7 Fr Pre-procedure: landmarks identified Number of attempts: 1 Ultrasound guidance: yes Post-Procedure: Post-procedure: line sutured and antimicrobial dressing applied Description/Findings: dark, non-pulsatile blood return obtained from all lumens Estimated blood loss: < 10 mL Complications: No apparent complications Follow-up chest x-ray: ordered Assistants & Supervision: I personally performed the procedure documented as signed by this procedure note Desk Manager(s): N/A No supervision required [facility] BRADEN Medina RN, CNP 10/24/2023 2:34 AM Arterial Line Insertion Date/Time: 10/24/2023 2:33 AM Performed by: ADARSH Medina CNP Authorized by: ADARSH Medina CNP Consent: Consent was not able to be obtained because the procedure was emergent or the patient was unable to give consent and a surrogate decision maker was not available. Timeout: Completed immediately prior to the start of the procedure which included verification of the correct patient, correct site and agreement on the procedure to be done. Indications: Indications: hemodynamic monitoring Anesthetic: Local anesthetic used: lidocaine without epinephrine Preparation: Patient was prepped and draped in usual sterile fashion. Skin prepped: skin prepped with chlorhexidine Procedure Details: Orientation: right Location: radial Douglas's test normal: yes Number of attempts: 1 Post-Procedure: Post-procedure: line sutured and antimicrobial dressing applied Description/Findings: Bright red pulsatile blood return noted Estimated blood loss: < 10 mL Complications: No apparent complications Assistants & Supervision: I personally performed the procedure documented as signed by this procedure note Desk Manager(s): N/A No supervision required [facility] Radiology Study observation (narrative) [facility] Radiology Study observation (narrative) [facility] Procalcitonin [Mass/Vol]on 0 10-24-2023 Interpretation and review of laboratory results Abnormal [facility] PCT <0.50 = Low risk of severe sepsis and/or septic shock. PCT >2.00 = High risk of severe sepsis and/or septic shock. [facility] Respiratory pathogens DNA an d RNA panel MARVIN+non-probe (Nph)on 10-24-2023 Adenovirus Not detected Not Detected [facility] B. pertussis DNA MARVIN+probe Ql (Unsp spec) Not detected Not Detected [facility] Bordetella parapertussis Not detected Not Detected [facility] Chlamydia pneumoniae Not detected Not Detected [facility] Coronavirus 229E Not detected Not Detected [facility] Coronavirus HKU1 Not detected Not Detected [facility] Coronavirus NL63 Not detected Not Detected [facility] Coronavirus OC43 Not detected Not Detected [facility] FLUAV RNA MARVIN+non-probe Ql (Nph) Detected Abnormal Not Detected [facility] FLUBV RNA MARVIN+non-probe Ql (Nph) Not detected Not Detected [facility] Human Metapneumovirus Not detected Not Detected [facility] Human Rhinovirus/Enterovirus Not detected Not Detected [facility] Interpretation and review of laboratory results Abnormal [facility] Mycoplasma pneumoniae Not detected Not Detected [facility] Parainfluenza 1 Not detected Not Detected [facility] Parainfluenza 2 Not detected Not Detected [facility] Parainfluenza 3 Not detected Not Detected [facility] Parainfluenza 4 Not detected Not Detected [facility] Respiratory Syncytial Virus Not detected Not Detected [facility] SARS-CoV-2 (COVID-19) RNA MARVIN+non-probe Ql (Nph) Not detected Not Detected [facility] Methodology: Multipl ex PCR [facility] TSH Qnon 10-24-2023 Interpretation and review of laboratory results Abnormal [facility] Troponin I.cardiac [Mass/Vol ]on 10-24-2023 Interpretation and review of laboratory results Abnormal [facility] Patients with high levels of Biotin oral intake (ie >5 mg/day) may have falsely decreased Troponin levels. [facility] Interpretation and review of laboratory results Abnormal [facility] Patients with high levels of Biotin oral intake (ie >5 mg/day) may have falsely decreased Troponin levels. [facility] Troponin I.cardiac [Mass/Vol ]Ordered By: Asaf Arzate on 10-24-2023 Interpretation and review of laboratory results Abnormal [facility] Patients with high levels of Biotin oral intake (ie >5 mg/day) may have falsely decreased Troponin levels. [facility] US Heart Transthoracicon Ao Root Index 2.24 cm/m2 [facility] Aortic Arch 2.7 cm [facility] Aortic Root 3.6 cm [facility] Aortic Sinus Valsalva 3.6 cm [facility] Aortic Sinus Valsalva Index 2.24 cm/m2 [facility] AR Max Velocity PISA 3.7 m/s [facility] AR PHT 692.4 ms [facility] Ascending Aorta 4.0 cm [facility] Ascending Aorta Index 2.48 cm/m2 [facility] AV Area by Peak Velocity 1.9 cm2 [facility] AV Area by VTI 2.1 cm2 [facility] th AV AT 79.92 ms [facility] AV Mean Gradient 8 mmHg [facility] alth AV Mean Velocity 1.3 m/s [facility] alth AV Peak Gradient 18 mmHg [facility] He alth AV Peak Velocity 2.1 m/s [facility] alth AV Velocity Ratio 0.48 [facility] H ealth AV VTI 47.8 cm [facility] NURIA/BSA Peak Velocity 1.2 cm2/m2 [facility] NURIA/BSA VTI 1.3 cm2/m2 [facility] E/E' Lateral 10.67 [facility] E/E' Ratio (Averaged) 13.33 [facility] E/E' Septal 16.00 [facility] EF BP 76 % 55 - 100 % [facility] Fractional Shortening 2D 38 % 28 - 44 % [facility] Interpretation and review of laboratory results Abnormal [facility] IVC Diameter 2.5 cm [facility] IVSd 1.5 cm Abnormal 0.6 - 0.9 cm [facility] LA Volume 2C 45 mL 22 - 52 mL [facility] LA Volume 4C 65 mL Abnormal 22 - 52 mL [facility] LA Volume A/L 58 mL [facility]alt [facility] LA Volume BP 54 mL Abnormal 22 - 52 mL [facility] LA Volume Index 2C 28 mL/m2 16 - 34 mL/m2 [facility] LA Volume Index 4C 40 mL/m2 Abnormal 16 - 34 mL/m2 [facility] LA Volume Index A/L 36 mL/m2 16 - 34 mL/m2 [facility] LA Volume Index BP 34 ml/m2 16 - 34 ml/m2 [facility] LV E' Lateral Velocity 6 cm/s [facility] LV E' Septal Velocity 4 cm/s [facility] LV EDV A2C 62 mL [facility] LV EDV A4C 83 mL [facility] LV EDV BP 80 mL 56 - 104 mL [facility] LV EDV Index A2C 39 mL/m2 [facility] alth LV EDV Index A4C 52 mL/m2 [facility] alth LV EDV Index BP 50 mL/m2 [facility] LV Ejection Fraction A2C 72 % [facility] LV Ejection Fraction A4C 74 % [facility] LV ESV A2C 18 mL [facility] LV ESV A4C 22 mL [facility] LV ESV BP 20 mL 19 - 49 mL [facility] LV ESV Index A2C 11 mL/m2 [facility] alth LV ESV Index A4C 14 mL/m2 [facility] alth LV ESV Index BP 12 mL/m2 [facility] Hea lth LV Mass 2D 222.6 g Abnormal 67 - 162 g [facility] LV Mass 2D Index 138.2 g/m2 Abnormal 43 - 95 g/m2 [facility] LV RWT Ratio 0.49 [facility] LVIDd 4.5 cm 3.9 - 5.3 cm [facility] LVIDd Index 2.80 cm/m2 [facility] LVIDs 2.8 cm [facility] LVIDs Index 1.74 cm/m2 [facility] LVOT Area 3.8 cm2 [facility] LVOT Cardiac Output 6.2 liter/mi nut e [facility] LVOT Diameter 2.2 cm [facility] LVOT Mean Gradient 2 mmHg [facility] LVOT Peak Gradient 4 mmHg [facility] LVOT Peak Velocity 1.0 m/s [facility] LVOT Stroke Volume Index 60.9 mL/m2 [facility] LVOT SV 98.0 ml [facility] LVOT VTI 25.8 cm [facility] LVOT:AV VTI Index 0.54 [facility] ealth LVPWd 1.1 cm Abnormal 0.6 - 0.9 cm [facility] MV A Velocity 0.73 m/s [facility] MV E Velocity 0.64 m/s [facility] MV E Wave Deceleration Time 317.6 ms [facility] MV E/A 0.88 [facility] Pulmonary Artery EDP 3 mmHg [facility] RA Area 4C 47.1 mL [facility] RA Area 4C 40.6 mL [facility] RV Basal Dimension 3.6 cm [facility] RV Free Wall Peak S' 19 cm/s [facility] RV Longitudinal Dimension 5.1 cm [facility] RV Mid Dimension 3.3 cm [facility] Sinotubular Junction 3.4 cm [facility] TAPSE 2.5 cm 1.7 cm [facility] TR Max Velocity 2.29 m/s [facility] TR Peak Gradient 21 mmHg [facility] alth Left Ventricle: Left ventricle size is normal. Mildly increased wall thickness. Moderate septal thickening. Normal left ventricular systolic function. EF by 2D [employer] Biplane is 76%. Normal wall motion. Normal diastolic function. Right Ventricle: Right ventricle size is normal. RV basal diameter is 3.6 cm. RV mid diameter is 3.3 cm. Normal systolic function. TAPSE is normal. TAPSE is 2.5 cm. Aortic Valve: Mildly thickened cusps. Mildly calcified cusps. Left, right and noncoronary cusps sclerosis. Mild (1+) regurgitation. Aortic sclerosis/mild stenosis. Mitral Valve: Mildly thickened leaflets. Mild annular calcification (posterior). Trace regurgitation. Pulmonic Valve: Valve structure is normal. Mildly thickened cusps. Left Atrium: Left atrium size is mildly increased (LA volume index 35-41 mL/m2).LA Vol Index A/L is 36 mL/m2. Right Atrium: Not well visualized. Right atrium size is normal. Aorta: Normal sized sinuses of Valsalva. Sinuses of Valsalva diameter is 3.6 cm. Moderately dilated ascending aorta. Ao ascending diameter is 4.0 cm. Pericardium: Evidence of prominent epicardial fat. No pericardial effusion. Left Ventricle Left ventricle size is normal. Mildly increased wall thickness. Moderate septal thickening. Normal left ventricular systolic function. EF by 2D [employer]plane is 76%. Normal wall motion. Normal diastolic function. Right Ventricle Right ventricle size is normal. RV basal diameter is 3.6 cm. RV mid diameter is 3.3 cm. Normal systolic function. TAPSE is normal. TAPSE is 2.5 cm. Left Atrium Left atrium size is mildly increased (LA volume index 35-41 mL/m2).LA Vol Index A/L is 36 mL/m2. Right Atrium Not well visualized. Right atrium size is normal. IVC/SVC IVC is mildly dilated. IVC diameter is dilated and decreases greater than 50% during inspiration; therefore the estimated right atrial pressure is intermediate (~8 mmHg). Mitral Valve Mildly thickened leaflets. Mild annular calcification (posterior). Trace regurgitation. No stenosis noted. Tricuspid Valve Not well visualized. Valve structure is normal. Trace regurgitation. Aortic Valve Mildly thickened cusps. Mildly calcified cusps. Left, right and noncoronary cusps sclerosis. Mild (1+) regurgitation. Aortic sclerosis/mild stenosis. Pulmonic Valve Valve structure is normal. Mildly thickened cusps. Mild (1+) regurgitation. Ascending Aorta Normal sized sinuses of Valsalva. Sinuses of Valsalva diameter is 3.6 cm. Moderately dilated ascending aorta. Ao ascending diameter is 4.0 cm. Pericardium Evidence of prominent epicardial fat. No pericardial effusion. Septum Interatrial septum was not well visualized. No interatrial shunt visualized on color Doppler. Study Details Image quality: poor. Heart rate: 63 bpm. Blood pressure: 93/47 mmHg. Technical qualifiers: Technically difficult study with poor endocardial visualization. Ultrasound enhancement agent was given to enhance imaging. Comparison Study There is a prior study available for comparison. Prior study date: 12/12/2020. EF 48%. CV CPACS [employer] Urinalysis complete panel (U )on 10-24-2023 Bacteria LM.HPF (Urine sed) [#/Area] Moderate Abnormal Negative /HPF [facility] Bilirubin Ql (U) Negative Negative mg/dL [facility] [facility] Clarity (U) Extra Turbid Abnormal Clear [facility] Color (U) Yellow Lt. Yellow [facility] Epithelial cells.squamous LM.HPF (Urine sed) [#/Area] 11-25 [facility]l [facility] Normal Normal (<70) mg/dL [facility] Hemoglobin Ql (U) 0.2 mg/dL Abnormal [facility] Interpretation and review of laboratory results Abnormal [facility] Ketones (U) [Mass/Vol] Negative Negat quentin mg/dL [facility] Leukocyte esterase Test strip Ql (U) 500 Abnormal Negative Jonnathan/uL [facility] Mucus LM.HPF (Urine sed) [#/Area] Few Negative /LPF [facility] Nitrite Ql (U) Negative Negative [facility] Non-Squamous Epithalial Cells, Urine 0-2 Abnormal Negative /HPF [facility] pH (U) 5.5 [pH] 5.0 - 8.0 pH [facility] Protein (U) [Mass/Vol] 100 mg/dL Abnormal Negative [facility] RBC LM.HPF (Urine sed) [#/Area] 6-10 Abnormal [facility] Specific gravity (U) [Rel density] 1.040 High 1.005 - 1.030 [facility] Urobilinogen (U) [Mass/Vol] Normal Normal (0-1) mg/dL [facility] WBC LM.HPF (Urine sed) [#/Area] /[HPF] Abnormal [facility] Yeast.budding LM.HPF (Urine sed) [#/Area] Moderate Abnormal Negative /HPF [facility] Vital signson 10-24-2023 Oxygen saturation in Venous blood 68.6 % [facility] Comment on above: Performed by CLIA ID : [id number] [place], [place] ?Device: [id number] Construction Manager ID: [id number] XR Chest Single viewon 10-23 Central venous catheter in adequate position without pneumothorax. Report Dictated on Electronically Signed By: Aaron Keller MD Electronically Signed Date/Time: 10/24/2023 6:14 AM T [facility] [facility] Patient Name: ADORE WALTER : 1935 Exam Date/Time: 10/24/2023 02:51 Procedure: XR CHEST 1 VIEW Ordering Provider: ALONSO MANSUR Reason For Exam: PROCEDURES CHEST - PORTABLE: CLINICAL INDICATION: Central venous catheter placement TECHNIQUE: Portable AP COMPARISON: One day ago FINDINGS: Life support devices: Right jugular venous catheter with its tip in the region of the superior vena cava Heart/Mediastinum: Unchanged Lungs/Pleura: Reticular opacities remain throughout the lungs are there is no pneumothorax. Costophrenic angles are sharp. [facility] Aaron Keller MD - 10/24/2023 Patient Name: ADORE WALTER : 1935 Exam Date/Time: 10/24/2023 02:51 Procedure: XR CHEST 1 VIEW Ordering Provider: ALONSO MANSUR Reason For Exam: PROCEDURES CHEST - PORTABLE: CLINICAL INDICATION: Central venous catheter placement TECHNIQUE: Portable AP COMPARISON: One day ago FINDINGS: Life support devices: Right jugular venous catheter with its tip in the region of the superior vena cava Heart/Mediastinum: Unchanged Lungs/Pleura: Reticular opacities remain throughout the lungs are there is no pneumothorax. Costophrenic angles are sharp. IMPRESSION: Central venous catheter in adequate position without pneumothorax. Report Dictated on Electronically Signed By: Aaron Keller MD Electronically Signed Date/Time: 10/24/2023 6:14 AM EDT [facility] Radiology Study observation (narrative) [facility] XR Chest Single viewOrdered By: Aaron Keller on 10-24-2023 [facility] Work Phone: aPTT Coag (Bld) [Time]on aPTT Coag (PPP) [Time] s Critically high 20 .0 - 30.5 s [facility] Interpretation and review of laboratory results Abnormal [facility] NOTE: The therapeuti c time for Heparin anticoagulation, based on Xa activity inhibition, is an APTT of 46-80 seconds. [facility] aPTT Coag (Bld) [Time]Ordere d By: Paula Blankenship on 10-24-2023 aPTT Coag (PPP) [Time] 121.7 s Critically high 20 .0 - 30.5 s [facility] Interpretation and review of laboratory results Abnormal [facility] NOTE: The therapeuti c time for Heparin anticoagulation, based on Xa activity inhibition, is an APTT of 46-80 seconds. [facility] [employer] CBC W Auto Differential pane l (Bld)on 10-23-2023 Basophils (Bld) [#/Vol] 0.0 10*3/uL 0.0 - 0.2 10*3/uL [facility] [employer] Basophils/100 WBC (Bld) 0.1 % 0.0 - 2.0 % [facility] Eosinophils (Bld) [#/Vol] 0.0 10*3/uL 0.0 - 0.5 10*3/uL [facility] Eosinophils/100 WBC (Bld) 0.0 % 0.0 - 6.0 % [facility] Erythrocyte distribution width (RBC) [Ratio] 14.6 % 11.5 - 15.0 % [facility] [employer] Hematocrit (Bld) [Volume fraction] 34.5 % Low 35.0 - 47.0 % [facility] Hemoglobin (Bld) [Mass/Vol] 11.4 g/dL Low 11.7 - 16.0 g/dL [facility] [employer] Immature granulocytes (Bld) [#/Vol] 0.1 10*3/uL High NINF - 0.1 10*3/uL [facility] [employer] Immature granulocytes/100 WBC (Bld) 0.6 % 0.0 - 2.0 % [facility] Interpretation and review of laboratory results Abnormal [facility] Lymphocytes (Bld) [#/Vol] 1.9 10*3/uL 1.0 - 4.3 10*3/uL [facility] [employer] Lymphocytes/100 WBC (Bld) 21.4 % 15.0 - 45.0 % [facility] MCH (RBC) [Entitic mass] 29.8 pg 26. 0 - 34.0 pg [facility] MCHC (RBC) [Mass/Vol] 33.0 % 30.5 - 36.0 % [facility] MCV (RBC) [Entitic vol] 90.1 fL 77.0 - 99.0 fL [facility] Monocytes (Bld) [#/Vol] 0.7 10*3/uL 0.0 - 0.9 10*3/uL [facility] Monocytes/100 WBC (Bld) 8.0 % 5.0 - 13.0 % [facility] [employer] Neutrophils (Bld) [#/Vol] 6.1 10*3/uL 1.8 - 7.5 10*3/uL [facility] Health Neutrophils/100 WBC (Bld) 69.9 % 38.0 - 82.0 % [facility] [employer] Nucleated RBC/100 WBC (Bld) [Ratio] 0.0 % [facility] [employer] Platelet mean volume (Bld) [Entitic vol] 9.7 fL 9.0 - 12.7 fL [facility] [employer] Platelets (Bld) [#/Vol] 200 10*3/uL 140 - 440 10*3/uL [facility] [employer] RBC (Bld) [#/Vol] 3.83 10*6/uL 3.80 - 5.2 0 10*6/uL [facility] [employer] WBC (Bld) [#/Vol] 8.7 10*3/uL 3.6 - 10.7 10*3/uL [facility] CT Abdomen and Pelvis W cont rast Mahamed 10-23-2023 Addendum by Aaron Manzo MD on 10/23/2023 11:17 PM EDT Patient Name: ADORE WALTER : 1935 Exam Date/Time: 10/23/2023 22:29 Procedure: CT CHEST ABDOMEN PELVIS ANGIOGRAM W AND/OR WO CONTRAST Ordering Provider: AREVALO MICHAEL Reason For Exam: NSTEMI, concern for dissection vs ruptured aortic aneurysm --------ADDENDUM #1 -------- Follow-up thyroid ultrasound is recommended for incidental thyroid nodule that is equal to or greater than 1.5 cm in patients 35 years of age or older. Patients with comorbidities or limited life expectancy should not have further evaluation of the thyroid nodule, unless it is warranted clinically, or specifically requested by the patient or referring physician. Reference: Mile Fraser al "Managing incidental thyroid nodules detected on imaging: White paper of the ACR incidental thyroid findings committee" J Am Juju Radiol 2015;12:143-150. Report Dictated on Electronically Signed By: Aaron Manzo MD Electronically Signed Date/Time: 10/23/2023 11:17 PM EDT --------ORIGINAL REPORT -------- CLINICAL INFORMATION: Progressive chest and abdominal pain. Abdominal pain extending into the pelvis. Evaluate for aortic dissection. CTA CHEST: Images are first obtained prior to IV contrast. After 75 mL Isovue IV contrast, 1 mm axial cuts through the chest are obtained. 3D reconstructions are performed by me and reviewed simultaneously on the separate [employer] workstation. Sagittal and coronal reconstructions are also reviewed. Dose reduction was employed with automated exposure control. FINDINGS: A good contrast bolus is identified within the thoracic aorta. The ascending, arch, and descending thoracic aorta are normal in caliber without evidence of aneurysm or dissection. There are no filling defects to suggest pulmonary embolism. The pulmonary arteries are enlarged consistent with chronic pulmonary hypertension. The heart size is normal. There is no significant mediastinal lymphadenopathy. Mild emphysematous changes are noted diffusely. Atelectasis and mild infiltrates are noted in both lower lobes. No pleural effusions are seen. A 3.5 cm hypodense nodule is noted in the right lobe of thyroid. IMPRESSION: 1. No evidence of aortic aneurysm or dissection. 2. COPD with evidence of chronic pulmonary hypertension. 3. Mild bibasilar infiltrates. CTA ABDOMEN: 1 mm axial cuts are obtained from the dome of the liver through the iliac crests with 75 mL Isovue IV contrast. 3D images with coronal and sagittal planar images were reconstructed by wi and reviewed simultaneously on the [employer] Workstation. Dose reduction was employed with automated exposure control. FINDINGS: The abdominal aorta is normal in caliber without evidence of aneurysmal dilatation or dissection. The celiac trunk and SMA origins are normal. Single renal arteries are identified bilaterally. There is no evidence of renal artery stenosis. The inferior mesenteric artery remains patent. The liver and spleen are normal. The pancreas and adrenal glands are within normal limits. Both kidneys are visualized in their cortical phase. There is no hydronephrosis or hydroureter. No free fluid is seen within the abdomen. IMPRESSION: 1. There is no evidence of aortic aneurysm or dissection. 2. The mesenteric and renal vessel origins are normal. CTA PELVIS: 1 mm axial cuts are obtained from the iliac crests through the symphysis pubis with 75 mL Isovue IV contrast. 3D images with coronal and sagittal planar images were reconstructed by me and reviewed simultaneously on the [employer] Workstation. Dose reduction was employed with automated exposure control. FINDINGS: Mild atherosclerotic changes are present in the common iliac arteries bilaterally. However, this does not appear flow-limiting. The common femoral arteries are normal bilaterally. There is no evidence of bowel obstruction. The bladder is normal. No free fluid is seen within the pelvis. Sagittal reconstructed images of the spine demonstrate numerous chronic-appearing compression fractures (T11, L2, L4, and L5). Hip surgeries are noted bilaterally. IMPRESSION: 1. No evidence of aortic aneurysm or dissection. 2. COPD with evidence of chronic pulmonary hypertension. 3. Mild bibasilar infiltrates. 4. Numerous old thoracolumbar compression fractures. Report Dictated on Electronically Signed By: Aaron Manzo MD Electronically Signed Date/Time: 10/23/2023 10:51 PM EDT [employer] 1. No evidence of aortic aneurysm or dissection. 2. COPD with evidence of chronic pulmonary hypertension. 3. Mild bibasilar infiltrates. CTA ABDOMEN: 1 mm axial cuts are obtained from the dome of the liver through the iliac crests with 75 mL Isovue IV contrast. 3D images with coronal and sagittal planar images were reconstructed by me and reviewed simultaneously on the [employer] Workstation. Dose reduction was employed with automated exposure control. FINDINGS: The abdominal aorta is normal in caliber without evidence of aneurysmal dilatation or dissection. The celiac trunk and SMA origins are normal. Single renal arteries are identified bilaterally. There is no evidence of renal artery stenosis. The inferior mesenteric artery remains patent. The liver and spleen are normal. The pancreas and adrenal glands are within normal limits. Both kidneys are visualized in their cortical phase. There is no hydronephrosis or hydroureter. No free fluid is seen within the abdomen. IMPRESSION: 1. There is no evidence of aortic aneurysm or dissection. 2. The mesenteric and renal vessel origins are normal. CTA PELVIS: 1 mm axial cuts are obtained from the iliac crests through the symphysis pubis with 75 mL Isovue IV contrast. 3D images with coronal and sagittal planar images were reconstructed by me and reviewed simultaneously on the [employer] Workstation. Dose reduction was employed with automated exposure control. FINDINGS: Mild atherosclerotic changes are present in the common iliac arteries bilaterally. However, this does not appear flow-limiting. The common femoral arteries are normal bilaterally. There is no evidence of bowel obstruction. The bladder is normal. No free fluid is seen within the pelvis. Sagittal reconstructed images of the spine demonstrate numerous chronic-appearing compression fractures (T11, L2, L4, and L5). Hip surgeries are noted bilaterally. IMPRESSION: 1. No evidence of aortic aneurysm or dissection. 2. COPD with evidence of chronic pulmonary hypertension. 3. Mild bibasilar infiltrates. 4. Numerous old thoracolumbar compression fractures. Report Dictated on Electronically Signed By: Aaron Manzo MD Electronically Signed Date/Time: 10/23/2023 10:51 PM EDT [employer] Patient Name: ADORE WALTER : 1935 Exam Date/Time: 10/23/2023 22:29 Procedure: CT CHEST ABDOMEN PELVIS ANGIOGRAM W AND/OR WO CONTRAST Ordering Provider: AREVALO MICHAEL Reason For Exam: NSTEMI, concern for dissection vs ruptured aortic aneurysm CLINICAL INFORMATION: Progressive chest and abdominal pain. Abdominal pain extending into the pelvis. Evaluate for aortic dissection. CTA CHEST: Images are first obtained prior to IV contrast. After 75 mL Isovue IV contrast, 1 mm axial cuts through the chest are obtained. 3D reconstructions are performed by me and reviewed simultaneously on the separate [employer] workstation. Sagittal and coronal reconstructions are also reviewed. Dose reduction was employed with automated exposure control. FINDINGS: A good contrast bolus is identified within the thoracic aorta. The ascending, arch, and descending thoracic aorta are normal in caliber without evidence of aneurysm or dissection. There are no filling defects to suggest pulmonary embolism. The pulmonary arteries are enlarged consistent with chronic pulmonary hypertension. The heart size is normal. There is no significant mediastinal lymphadenopathy. Mild emphysematous changes are noted diffusely. Atelectasis and mild infiltrates are noted in both lower lobes. No pleural effusions are seen. A 3.5 cm hypodense nodule is noted in the right lobe of thyroid. [facility] Aaron Manzo MD - 10/23/2023 Patient Name: ADORE WALTER : 1935 [facility]#: [id number] Exam Date/Time: 10/23/2023 22:29 Procedure: CT CHEST ABDOMEN PELVIS ANGIOGRAM W AND/OR WO CONTRAST Ordering Provider: AREVALO MICHAEL Reason For Exam: NSTEMI, concern for dissection vs ruptured aortic aneurysm CLINICAL INFORMATION: Progressive chest and abdominal pain. Abdominal pain extending into the pelvis. Evaluate for aortic dissection. CTA CHEST: Images are first obtained prior to IV contrast. After 75 mL Isovue IV contrast, 1 mm axial cuts through the chest are obtained. 3D reconstructions are performed by me and reviewed simultaneously on the separate [employer] workstation. Sagittal and coronal reconstructions are also reviewed. Dose reduction was employed with automated exposure control. FINDINGS: A good contrast bolus is identified within the thoracic aorta. The ascending, arch, and descending thoracic aorta are normal in caliber without evidence of aneurysm or dissection. There are no filling defects to suggest pulmonary embolism. The pulmonary arteries are enlarged consistent with chronic pulmonary hypertension. The heart size is normal. There is no significant mediastinal lymphadenopathy. Mild emphysematous changes are noted diffusely. Atelectasis and mild infiltrates are noted in both lower lobes. No pleural effusions are seen. A 3.5 cm hypodense nodule is noted in the right lobe of thyroid. IMPRESSION: 1. No evidence of aortic aneurysm or dissection. 2. COPD with evidence of chronic pulmonary hypertension. 3. Mild bibasilar infiltrates. CTA ABDOMEN: 1 mm axial cuts are obtained from the dome of the liver through the iliac crests with 75 mL Isovue IV contrast. 3D images with coronal and sagittal planar images were reconstructed by me and reviewed simultaneously on the [employer] Workstation. Dose reduction was employed with automated exposure control. FINDINGS: The abdominal aorta is normal in caliber without evidence of aneurysmal dilatation or dissection. The celiac trunk and SMA origins are normal. Single renal arteries are identified bilaterally. There is no evidence of renal artery stenosis. The inferior mesenteric artery remains patent. The liver and spleen are normal. The pancreas and adrenal glands are within normal limits. Both kidneys are visualized in their cortical phase. There is no hydronephrosis or hydroureter. No free fluid is seen within the abdomen. IMPRESSION: 1. There is no evidence of aortic aneurysm or dissection. 2. The mesenteric and renal vessel origins are normal. CTA PELVIS: 1 mm axial cuts are obtained from the iliac crests through the symphysis pubis with 75 mL Isovue IV contrast. 3D images with coronal and sagittal planar images were reconstructed by wi and reviewed simultaneously on the [employer] Workstation. Dose reduction was employed with automated exposure control. FINDINGS: Mild atherosclerotic changes are present in the common iliac arteries bilaterally. However, this does not appear flow-limiting. The common femoral arteries are normal bilaterally. There is no evidence of bowel obstruction. The bladder is normal. No free fluid is seen within the pelvis. Sagittal reconstructed images of the spine demonstrate numerous chronic-appearing compression fractures (T11, L2, L4, and L5). Hip surgeries are noted bilaterally. IMPRESSION: 1. No evidence of aortic aneurysm or dissection. 2. COPD with evidence of chronic pulmonary hypertension. 3. Mild bibasilar infiltrates. 4. Numerous old thoracolumbar compression fractures. Report Dictated on Electronically Signed By: Aaron Manzo MD Electronically Signed Date/Time: 10/23/2023 10:51 PM EDT [facility] Radiology Study observation (narrative) [facility] CT Abdomen and Pelvis W cont rast IVOrdered By: Aaron Manzo on 10-23-2023 [facility] [employer] Work Phone: CT Head WO contraston 2023 1. No acute intracranial findings. 2. Probable chronic ischemic and atrophic changes. 3. Sphenoid and bilateral mastoid sinus disease. Report Dictated on Electronically Signed By: Tutu Arroyo MD Electronically Signed Date/Time: 10/23/2023 10:43 PM EDT [facility] Patient Name: ADORE WALTER : 1935 Exam Date/Time: 10/23/2023 22:27 Procedure: CT HEAD WO IV CONTRAST Ordering Provider: CLAROS COURTNEY Reason For Exam: Mental status change, unknown cause CT BRAIN WITHOUT CONTRAST CLINICAL INDICATION: Mental status change, unknown cause TECHNIQUE: CT scan of the brain without IV contrast. Multiplanar reformations. Dose reduction was employed with automated exposure control. COMPARISON: September,. FINDINGS: No apparent mass or mass effect, hemorrhage, midline shift or hydrocephalus. No evidence of acute cortical infarct. No abnormal, extra-axial fluid or air collection. Patchy low density in the periventricular and subcortical white matter is nonspecific, but may relate to chronic small vessel ischemic change. Mild-moderate, diffuse volume loss. Osseous calvarium grossly intact. Marginal mucosal thickening in the left maxillary sinus and more pronounced mucosal thickening in the sphenoid sinus. Partial opacification of bilateral mastoid sinus. [facility] Tutu Arroyo MD - 10/23/2023 [facility] 1935 [id number] Exam Date/Time: 10/23/2023 22:27 Procedure: CT HEAD WO IV CONTRAST Ordering Provider: CLAROS COURTNEY Reason For Exam: Mental status change, unknown cause CT BRAIN WITHOUT CONTRAST CLINICAL INDICATION: Mental status change, unknown cause TECHNIQUE: CT scan of the brain without IV contrast. Multiplanar reformations. Dose reduction was employed with automated exposure control. COMPARISON: September,. FINDINGS: No apparent mass or mass effect, hemorrhage, midline shift or hydrocephalus. No evidence of acute cortical infarct. No abnormal, extra-axial fluid or air collection. Patchy low density in the periventricular and subcortical white matter is nonspecific, but may relate to chronic small vessel ischemic change. Mild-moderate, diffuse volume loss. Osseous calvarium grossly intact. Marginal mucosal thickening in the left maxillary sinus and more pronounced mucosal thickening in the sphenoid sinus. Partial opacification of bilateral mastoid sinus. IMPRESSION: 1. No acute intracranial findings. 2. Probable chronic ischemic and atrophic changes. 3. Sphenoid and bilateral mastoid sinus disease. Report Dictated on Electronically Signed By: Tutu Arroyo MD Electronically Signed Date/Time: 10/23/2023 10:43 PM EDT [facility] Radiology Study observation (narrative) [facility] metabolic 1998 panelon 10-23-2023 Albumin [Mass/Vol] 3.3 g/dL Low 3.5 - 5.0 g/dL [facility] ALP [Catalytic activity/Vol] 59 U/L 38 - 126 U/L [facility] ALT [Catalytic activity/Vol] 12 U/L 0 - 34 U/L [facility] Anion gap [Moles/Vol] 10 mmol/L 3 - 13 mmol/L [facility] AST [Catalytic activity/Vol] 29 U/L 15 - 46 U/L [facility] Bilirubin [Mass/Vol] 0.8 mg/dL 0.2 - 1 .3 mg/dL [facility] Calcium [Mass/Vol] 9.0 mg/dL 8.4 - 10. 4 mg/dL [facility] Chloride [Moles/Vol] 100 mmol/L 98 - 10 7 mmol/L [facility] CO2 [Moles/Vol] 21 mmol/L Low 22 - 30 mmol/L [facility] Creatinine [Mass/Vol] 2.17 mg/dL High 0.52 - 1.04 mg/dL [facility] GFR/1.73 sq M.predicted MDRD (S/P/Bld) [Vol rate/Area] 21.7 mL/min/{1.73_m2} Low - PINF [facility] Comment on above: Calculation based on the Chronic Kidney Disease Epidemiology Collaboration (CKD-EPI) equation refit without adjustment for race Glucose [Mass/Vol] 125 mg/dL High 70 - 100 mg/dL [facility] Interpretation and review of laboratory results Abnormal [facility] Potassium [Moles/Vol] 3.9 mmol/L 3.5 - 5.1 mmol/L [facility] Protein [Mass/Vol] 5.9 g/dL Low 6.3 - 8.2 g/dL [facility] Sodium [Moles/Vol] 131 mmol/L Low 135 - 145 mmol/L [facility] Urea nitrogen [Mass/Vol] 31 mg/dL High 7 - 17 mg/dL [facility] Laboratory - Chemistry and C hemistry - challengeon 10-23-2023 Lactate [Moles/Vol] 1.3 mmol/L 0.7 - 2. 0 mmol/L [facility] Glucose [Mass/Vol] 86 mg/dL 70 - 100 mg/dL [facility] Laboratory - Chemistry and C hemistry - challengeOrdered By: Mitra Lomeli on 10-23-2023 Troponin I.cardiac [Mass/Vol] 0.993 ng/mL Critically high NINF - 0.034 ng/mL [facility] Natriuretic peptide B [Mass/ Vol]on 10-23-2023 Interpretation and review of laboratory results Abnormal [facility] Natriuretic peptide B (Bld) [Mass/Vol] 6090 pg/mL High <20 - 300 [facility] No Panel Informationon 10-22 Interpretation and review of laboratory results Normal [facility] P Mcintyre 23 degrees [facility] IN Interval 149 ms [facility] QRS Mcintyre -42 degrees [facility] QRSD Interval 100 ms [facility] QT Interval 415 ms [facility] QTC Interval 471 ms [facility] T Wave Mcintyre 11 degrees [facility] Sinus rhythm Inferior infarct, 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 Electronically Signed On 10-23-2023 21:43:43 EDT by Nohemi Arevalo CV Nohemi Black MD - 10/23/2023 IMPRESSION: Sinus rhythm Inferior infarct, 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 Electronically Signed On 10-23-2023 21:43:43 EDT by Nohemi Arevalo [facility] Interpretation and review of laboratory results Normal [facility] Performed by: [facility], [address] [place] [address] CLIA ID: [id number] [facility] Radiology Study observation (narrative) [facility] alth Troponin I.cardiac [Mass/Vol ]Ordered By: Mitra Lomeli on 10-23-2023 Interpretation and review of laboratory results Abnormal [facility] Patients with high levels of Biotin oral intake (ie >5 mg/day) may have falsely decreased Troponin levels. [facility] Vital signson 10-23-2023 Heart rate 77 /min bpm [facility] XR Chest Single viewon 10-22 1. Stable examination. No acute findings. Report Dictated on Electronically Signed By: Tutu Arroyo MD Electronically Signed Date/Time: 10/23/2023 9:47 PM EDT [facility] Patient Name: ADORE WALTER : 1935 Exam Date/Time: 10/23/2023 21:47 Procedure: XR CHEST 1 VIEW Ordering Provider: CLAROS COURTNEY Reason For Exam: ALTERED MENTAL STATUS CHEST PORTABLE CLINICAL INDICATION: ALTERED MENTAL STATUS TECHNIQUE: Portable chest x-ray(s). COMPARISON: September,. FINDINGS: Patient rotated to the right. Cardiac silhouette prominent, which may be due in part to technique, but stable. Lungs show interstitial prominence or coarsening bilaterally, about the same. No focal consolidation or apparent pneumothorax. Degenerative change again noted in the thoracic spine and bilateral shoulders. [facility] Tutu Arroyo MD - 10/23/2023 Patient Name: ADORE WALTER : 1935 Exam Date/Time: 10/23/2023 21:47 Procedure: XR CHEST 1 VIEW Ordering Provider: CLAROS COURTNEY Reason For Exam: ALTERED MENTAL STATUS CHEST PORTABLE CLINICAL INDICATION: ALTERED MENTAL STATUS TECHNIQUE: Portable chest x-ray(s). COMPARISON: September,. FINDINGS: Patient rotated to the right. Cardiac silhouette prominent, which may be due in part to technique, but stable. Lungs show interstitial prominence or coarsening bilaterally, about the same. No focal consolidation or apparent pneumothorax. Degenerative change again noted in the thoracic spine and bilateral shoulders. IMPRESSION: 1. Stable examination. No acute findings. Report Dictated on Electronically Signed By: Tutu Arroyo MD Electronically Signed Date/Time: 10/23/2023 9:47 PM EDT [facility] Radiology Study observation (narrative) [facility] XR Chest Single viewOrdered By: Tutu Arroyo on 10-23-2023 [facility] [employer] Work Phone: aPTT Coag (Bld) [Time]on aPTT Coag (PPP) [Time] 31.3 s High 20.0 - 30.5 s [employer] Interpretation and review of laboratory results Abnormal [facility] [employer] NOTE: The therapeuti c time for Heparin anticoagulation, based on Xa activity inhibition, is an APTT of 46-80 seconds. [facility] Laboratory - Chemistry and C hemistry - challengeOrdered By: Thais Talamantes on 03-23-2023 T4 [Mass/Vol] 8.2 ug/dL 4.8-13.9 [facility] No Panel InformationOrdered By: Thais Talamantes on 03-23-2023 Thyroid Stimulating Hormone (TSH) 0.23 uIU/mL 0.358-3.74 [facility] Total Triiodothyronine 0.94 ng/mL 0.6-1.81 [facility] Laboratory - Chemistry and C hemistry - challengeOrdered By: Thais Talamantes on 02-04-2023 Free T4 [Mass/Vol] 1.18 ng/dL 0.76-1.46 [facility] No Panel InformationOrdered By: Thais Talamantes on 02-04-2023 Free Triiodothyronine (T3) pg/dL 2.5 pg/mL 2.18-3.98 [facility] Thyroid Stimulating Hormone (TSH) 0.21 uIU/mL 0.358-3.74 [facility] Basophil percentageOrdered B y: Thais Talamantes on 01-27-2023 Bilirubin [Mass/Vol] 0.50 mg/dL 0.20-1.00 [facility] Comment on above: For patients on eltr ombopag therapy, use of Dimension [place] TBIL is not recommended. Chloride [Moles/Vol] 107 mmol/L 98-107 [facility] Cholesterol [Mass/Vol] 119 mg/dL <200 [facility] Comment on above: <200 mg/dL Desirable 200-240 mg/dL Borderline >240 mg/dL High Risk Glucose [Mass/Vol] 81 mg/dL 74-106 [facility] Potassium [Moles/Vol] 4.5 mmol/L 3.5-5.1 [facility] Protein [Mass/Vol] 6.1 g/dL 6.4-8.2 [facility] Sodium [Moles/Vol] 139 mmol/L 136-145 [facility] Triglyceride [Mass/Vol] 76 mg/dL <199 [facility] Comment on above: The drugs N-Acetylcy steine and Metamizole may falsely depress this assay.Serum Triglycerides Reference Interval Normal <150 mg/dL Borderline high 150 - 199 mg/dL High 200 - 499 mg/dL Very High > or = 500 mg/dL WBC (Bld) [#/Vol] 7.1 10*3/uL 4.4-11.0 [facility] Blood erythrocytes count (nu mber/volume)Ordered By: Thais Talamantes on 01-27-2023 RBC (Bld) [#/Vol] 4.15 10*6/uL 4.2-5.4 [facility] Blood hemoglobin measurement (mass/volume)Ordered By: Thais Talamantes on 01-27-2023 Hemoglobin (Bld) [Mass/Vol] 12.5 g/dL 12.0-15.0 [facility] Blood platelet mean volumeOr dered By: Thais Talamantes on 01-27-2023 Platelet mean volume (Bld) [Entitic vol] 11.2 fL 6.2-12.0 [facility] Determination of erythrocyte mean corpuscular volume (MCV)Ordered By: Thais Talamantes on 01-27-2023 MCV (RBC) [Entitic vol] 96.1 fL 81-99 [facility] Hematocrit Auto (Bld) [Volum e fraction]Ordered By: Thais Talamantes on 01-27-2023 Hematocrit (Bld) [Volume fraction] 39.9 % 37-47 [facility] Laboratory - Chemistry and C hemistry - challengeOrdered By: Thais Talamantes on 01-27-2023 ALP [Catalytic activity/Vol] 77 U/L 45-117 [facility] ALT [Catalytic activity/Vol] 16 U/L 13-56 [facility] CO2 [Moles/Vol] 27.0 mmol/L 21.0-32.0 [facility] Globulin (S) [Mass/Vol] 3.2 g/dL 2.2-4.2 [facility] Urea nitrogen/Creatinine [Mass ratio] 24.9 mg/mg 10-20 [facility] Laboratory - Hematology and Cell countsOrdered By: Thais Talamantes on 01-27-2023 Erythrocyte distribution width (RBC) [Entitic vol] 48.8 fL 35.1-43.9 [facility] Erythrocyte distribution width (RBC) [Ratio] 13.9 % 11.6-14.6 [facility] MCH (RBC) [Entitic mass] 30.1 pg 27.0-32.0 [facility] MCHC Auto (RBC) [Mass/Vol]Or dered By: Thais Talamantes on 01-27-2023 MCHC (RBC) [Mass/Vol] 31.3 g/dL 32-36 [facility] No Panel InformationOrdered By: Thais Talamantes on 01-27-2023 Estimated GFR (MDRD) Amer 74 mL/min >60 [facility] Comment on above: GFR Calc Estimated GFR (MDRD) Non-Af Amer 61 mL/min >60 [facility] Comment on above: Non- GFR Calc Thyroid Stimulating Hormone (TSH) 0.16 uIU/mL 0.358-3.74 [facility] Platelets bldOrdered By: Soren Talamantes on 01-27-2023 Platelets (Bld) [#/Vol] 228 10*3/uL 150-450 [facility] Serum or plasma albumin zoë urement (mass/volume)Ordered By: Thais Talamantes on 01-27-2023 Albumin [Mass/Vol] 2.9 g/dL 3.2-5.0 [facility] Serum or plasma albumin/glob ulin mass ratioOrdered By: Thais Talamantes on 01-27-2023 Albumin/Globulin [Mass ratio] 0.9 {ratio} 0.9-2.4 [facility] Serum or plasma calcium zoë urement (mass/volume)Ordered By: Thais Talamantes on 01-27-2023 Calcium [Mass/Vol] 9.5 mg/dL 8.5-10.1 [facility] Serum or plasma cholesterol in HDL measurement (mass/volume)Ordered By: Thais Talamantes on 01-27-2023 Cholesterol in HDL [Mass/Vol] 46 mg/dL >40 [facility] Comment on above: The drugs N-Acetylcy steine and Metamizole may falsely depress this assay. Reference Range HDL <40 mg/dL Low HDL Cholesterol HDL >or= 60 mg/dL High HDL Cholesterol Serum or plasma cholesterol in VLDL measurement (mass/volume)Ordered By: Thais Talamantes on 01-27-2023 Cholesterol in VLDL [Mass/Vol] 15 mg/dL 5-40 [facility] Serum or plasma creatinine m easurement (mass/volume)Ordered By: Thais Talamantes on 01-27-2023 Creatinine [Mass/Vol] 0.92 mg/dL 0.55-1.02 [facility] Comment on above: The validity of the calculated GFR & GFRAA in patients over 70 years has not been determined. Clinical correlation is essential. Serum or plasma low density lipoprotein (LDL) cholesterol measurement (mass/volume)Ordered By: Thais Talamantes on 01-27-2023 Cholesterol in LDL [Mass/Vol] 58 mg/dL 0-130 [facility] Serum or plasma urea nitroge n measurement (mass/volume)Ordered By: Thais Talamantes on 01-27-2023 Urea nitrogen [Mass/Vol] 23 mg/dL 7-18 [facility] Thin prep Papanicolaou smear with manual screeningOrdered By: Thais Talamantes on 01-27-2023 Thin prep Papanicolaou smear with manual screening 15 U/L 15-37 [facility] Thin prep Papanicolaou smear with manual screening 5 5-15 [facility] Basophil percentageOrdered B y: Thais Talamantes on 01-20-2023 Bilirubin [Mass/Vol] 0.50 mg/dL 0.20-1.00 [facility] Comment on above: For patients on eltr ombopag therapy, use of Dimension [place] TBIL is not recommended. Chloride [Moles/Vol] 106 mmol/L 98-107 [facility] Cholesterol [Mass/Vol] 126 mg/dL <200 [facility] Comment on above: <200 mg/dL Desirable 200-240 mg/dL Borderline >240 mg/dL High Risk Glucose [Mass/Vol] 81 mg/dL 74-106 [facility] Potassium [Moles/Vol] 4.5 mmol/L 3.5-5.1 [facility] Protein [Mass/Vol] 6.1 g/dL 6.4-8.2 [facility] Sodium [Moles/Vol] 139 mmol/L 136-145 [facility] Triglyceride [Mass/Vol] 78 mg/dL <199 [facility] Comment on above: The drugs N-Acetylcy steine and Metamizole may falsely depress this assay.Serum Triglycerides Reference Interval Normal <150 mg/dL Borderline high 150 - 199 mg/dL High 200 - 499 mg/dL Very High > or = 500 mg/dL WBC (Bld) [#/Vol] 6.5 10*3/uL 4.4-11.0 [facility] Blood erythrocytes count (nu mber/volume)Ordered By: Thais Talamantes on 01-20-2023 RBC (Bld) [#/Vol] 3.97 10*6/uL 4.2-5.4 [facility] Blood hemoglobin measurement (mass/volume)Ordered By: Thais Talamantes on 01-20-2023 Hemoglobin (Bld) [Mass/Vol] 12.1 g/dL 12.0-15.0 [facility] Blood platelet mean volumeOr dered By: Thais Talamantes on 01-20-2023 Platelet mean volume (Bld) [Entitic vol] 10.3 fL 6.2-12.0 [facility] Determination of erythrocyte mean corpuscular volume (MCV)Ordered By: Thais Talamantes on 01-20-2023 MCV (RBC) [Entitic vol] 97.2 fL 81-99 [facility] Hematocrit Auto (Bld) [Volum e fraction]Ordered By: Thais Talamantes on 01-20-2023 Hematocrit (Bld) [Volume fraction] 38.6 % 37-47 [facility] Laboratory - Chemistry and C hemistry - challengeOrdered By: Thais Talamantes on 01-20-2023 ALP [Catalytic activity/Vol] 78 U/L 45-117 [facility] ALT [Catalytic activity/Vol] 19 U/L 13-56 [facility] CO2 [Moles/Vol] 29.0 mmol/L 21.0-32.0 [facility] Globulin (S) [Mass/Vol] 3.1 g/dL 2.2-4.2 [facility] Urea nitrogen/Creatinine [Mass ratio] 25.1 mg/mg 10-20 [facility] Laboratory - Hematology and Cell countsOrdered By: Thais Talamantes on 01-20-2023 Erythrocyte distribution width (RBC) [Entitic vol] 49.8 fL 35.1-43.9 [facility] Erythrocyte distribution width (RBC) [Ratio] 13.8 % 11.6-14.6 [facility] MCH (RBC) [Entitic mass] 30.5 pg 27.0-32.0 [facility] MCHC Auto (RBC) [Mass/Vol]Or dered By: Thais Talamantes on 01-20-2023 MCHC (RBC) [Mass/Vol] 31.3 g/dL 32-36 [facility] No Panel InformationOrdered By: Thais Talamantes on 01-20-2023 Estimated GFR (MDRD) Amer 79 mL/min >60 [facility] Comment on above: GFR Calc Estimated GFR (MDRD) Non-Af Amer 65 mL/min >60 [facility] Comment on above: Non- GFR Calc Thyroid Stimulating Hormone (TSH) 0.21 uIU/mL 0.358-3.74 [facility] Platelets bldOrdered By: Soren Talamantes on 01-20-2023 Platelets (Bld) [#/Vol] 267 10*3/uL 150-450 [facility] Serum or plasma albumin zoë urement (mass/volume)Ordered By: Thais Talamantes on 01-20-2023 Albumin [Mass/Vol] 3.0 g/dL 3.2-5.0 [facility] Serum or plasma albumin/glob ulin mass ratioOrdered By: Thais Talamantes on 01-20-2023 Albumin/Globulin [Mass ratio] 1.0 {ratio} 0.9-2.4 [facility] Serum or plasma calcium zoë urement (mass/volume)Ordered By: Thais Talamantes on 01-20-2023 Calcium [Mass/Vol] 9.4 mg/dL 8.5-10.1 [facility] Serum or plasma cholesterol in HDL measurement (mass/volume)Ordered By: Thais Talamantes on 01-20-2023 Cholesterol in HDL [Mass/Vol] 48 mg/dL >40 [facility] Comment on above: The drugs N-Acetylcy steine and Metamizole may falsely depress this assay. Reference Range HDL <40 mg/dL Low HDL Cholesterol HDL >or= 60 mg/dL High HDL Cholesterol Serum or plasma cholesterol in VLDL measurement (mass/volume)Ordered By: Thais Talamantes on 01-20-2023 Cholesterol in VLDL [Mass/Vol] 16 mg/dL 5-40 [facility] Serum or plasma creatinine m easurement (mass/volume)Ordered By: Thais Talamantes on 01-20-2023 Creatinine [Mass/Vol] 0.88 mg/dL 0.55-1.02 [facility] Comment on above: The validity of the calculated GFR & GFRAA in patients over 70 years has not been determined. Clinical correlation is essential. Serum or plasma low density lipoprotein (LDL) cholesterol measurement (mass/volume)Ordered By: Thais Talamantes on 01-20-2023 Cholesterol in LDL [Mass/Vol] 62 mg/dL 0-130 [facility] Serum or plasma urea nitroge n measurement (mass/volume)Ordered By: Thais Talamantes on 01-20-2023 Urea nitrogen [Mass/Vol] 22 mg/dL 7-18 [facility] Thin prep Papanicolaou smear with manual screeningOrdered By: Thais Talamantes on 01-20-2023 Thin prep Papanicolaou smear with manual screening 21 U/L 15-37 [facility] Thin prep Papanicolaou smear with manual screening 4 5-15 [facility] Basophil percentageOrdered B y: Thais Talamantes on 08-06-2022 Chloride [Moles/Vol] 107 mmol/L 98-107 [facility] Glucose [Mass/Vol] 88 mg/dL 74-106 [facility] Potassium [Moles/Vol] 3.9 mmol/L 3.5-5.1 [facility] Sodium [Moles/Vol] 139 mmol/L 136-145 [facility] Laboratory - Chemistry and C hemistry - challengeOrdered By: Thais Talamantes on 08-06-2022 CO2 [Moles/Vol] 28.0 mmol/L 21.0-32.0 [facility] Urea nitrogen/Creatinine [Mass ratio] 24.5 mg/mg 10-20 [facility] No Panel InformationOrdered By: Thais Talamantes on 08-06-2022 Estimated GFR (MDRD) Amer 103 mL/min >60 [facility] Comment on above: GFR Calc Estimated GFR (MDRD) Non-Af Amer 85 mL/min >60 [facility] Comment on above: Non- GFR Calc Serum or plasma calcium zoë urement (mass/volume)Ordered By: Thais Talamantes on 08-06-2022 Calcium [Mass/Vol] 9.2 mg/dL 8.5-10.1 [facility] Serum or plasma creatinine m easurement (mass/volume)Ordered By: Thais Talamantes on 08-06-2022 Creatinine [Mass/Vol] 0.69 mg/dL 0.55-1.02 [facility] Comment on above: The validity of the calculated GFR & GFRAA in patients over 70 years has not been determined. Clinical correlation is essential. Serum or plasma urea nitroge n measurement (mass/volume)Ordered By: Thais Talamantes on 08-06-2022 Urea nitrogen [Mass/Vol] 17 mg/dL 7-18 [facility] Thin prep Papanicolaou smear with manual screeningOrdered By: Thais Talamantes on 08-06-2022 Thin prep Papanicolaou smear with manual screening 4 5-15 [facility] Basophil percentageon 2021 Bilirubin [Mass/Vol] 0.50 mg/dL 0.20-1.00 [facility] Work Phone: Comment on above: For patients on eltr ombopag therapy, use of Dimension [place] TBIL is not recommended. Chloride [Moles/Vol] 106 mmol/L 98-107 [facility] Work Phone: Cholesterol [Mass/Vol] 124 mg/dL <200 [facility] Work Phone: Comment on above: <200 mg/dL Desirable 200-240 mg/dL Borderline >240 mg/dL High Risk Glucose [Mass/Vol] 77 mg/dL 74-106 [facility] Work Phone: Potassium [Moles/Vol] 4.6 mmol/L 3.5-5.1 [facility] Work Phone: Protein [Mass/Vol] 5.7 g/dL 6.4-8.2 [facility] Work Phone: Sodium [Moles/Vol] 140 mmol/L 136-145 [facility] Work Phone: Triglyceride [Mass/Vol] 87 mg/dL <199 [facility] Work Phone: Comment on above: The drugs N-Acetylcy steine and Metamizole may falsely depress this assay.Serum Triglycerides Reference Interval Normal <150 mg/dL Borderline high 150 - 199 mg/dL High 200 - 499 mg/dL Very High > or = 500 mg/dL WBC (Bld) [#/Vol] 7.7 10*3/uL 4.4-11.0 [facility] Work Phone: Blood erythrocytes count (nu mber/volume)on 03-19-2022 RBC (Bld) [#/Vol] 4.23 10*6/uL 4.2-5.4 [facility] Work Phone: [phone] Blood hemoglobin measurement (mass/volume)on 03-19-2022 Hemoglobin (Bld) [Mass/Vol] 12.5 g/dL 12.0-15.0 [facility] Work Phone: [phone] Blood platelet mean volumeon 03-19-2022 Platelet mean volume (Bld) [Entitic vol] 10.8 fL 6.2-12.0 [facility] Work Phone: [phone] Determination of erythrocyte mean corpuscular volume (MCV)on 03-19-2022 MCV (RBC) [Entitic vol] 92.0 fL 81-99 [facility] Work Phone: [phone] Erythrocyte sedimentation ra lety 03-19-2022 ESR (Bld) [Velocity] mm/h 0-30 [facility] Work Phone: Comment on above: Previous reported re sult: > 1 mm/hrEdited by: BARRETT on 03/19/22:1002 AMENDED REPORT 03/19/22 1002 SED RATE previously reported as: > 1 mm/hr Hematocrit Auto (Bld) [Volum e fraction]on 03-19-2022 Hematocrit (Bld) [Volume fraction] 38.9 % 37-47 [facility] Work Phone: [phone] Laboratory - Chemistry and C hemistry - challengeon 03-19-2022 ALP [Catalytic activity/Vol] 65 U/L 45-117 [facility] Work Phone: [phone] ALT [Catalytic activity/Vol] 17 U/L 13-56 [facility] Work Phone: [phone] CO2 [Moles/Vol] 28.0 mmol/L 21.0-32.0 [facility] Work Phone: [phone] Globulin (S) [Mass/Vol] 2.8 g/dL 2.2-4.2 [facility] Work Phone: [phone] Urea nitrogen/Creatinine [Mass ratio] 25.1 mg/mg 10-20 [facility] Work Phone: [phone] Laboratory - Hematology and Cell countson 03-19-2022 Erythrocyte distribution width (RBC) [Entitic vol] 52.9 fL 35.1-43.9 [facility] Work Phone: [phone] Erythrocyte distribution width (RBC) [Ratio] 15.8 % 11.6-14.6 [facility] Work Phone: [phone] MCH (RBC) [Entitic mass] 29.6 pg 27.0-32.0 [facility] Work Phone: [phone] MCHC Auto (RBC) [Mass/Vol]on 03-19-2022 MCHC (RBC) [Mass/Vol] 32.1 g/dL 32-36 [facility] Work Phone: No Panel Informationon 03-19 Estimated GFR (MDRD) Amer 83 mL/min >60 [facility] Work Phone: [phone] Comment on above: GFR Calc Estimated GFR (MDRD) Non-Af Amer 69 mL/min >60 [facility] Work Phone: [phone] Comment on above: Non- GFR Calc Vitamin D 25-Hydroxy 84.7 ng/mL [facility] Work Phone: [phone] Comment on above: Vitamin D 25(OH) Sta tus Range Deficiency <20 ng/mL (50nmol/L) Insufficiency 20 - 30 ng/mL (50 - 75 nmol/L) Sufficiency 30 - 100 ng/mL (75 - 250 nmol/L) Toxicity >100 ng/mL (>250 nmol/L) Platelets bldon 03-19-2022 Platelets (Bld) [#/Vol] 253 10*3/uL 150-450 [facility] Work Phone: Serum or plasma C reactive p rotein measurement (mass/volume)on 03-19-2022 CRP [Mass/Vol] mg/L 0.0-3.0 [facility] Work Phone: Comment on above: C-Reactive Protein ( CRP) provides useful information for thediagnosis, therapy and monitoring of inflammatory processesand associated diseases. For the evaluation of Relative Riskfor Cardiovascular Disease, a High Sensitivity CRP (HSCRP)should be ordered. Serum or plasma albumin zoë urement (mass/volume)on 03-19-2022 Albumin [Mass/Vol] 2.9 g/dL 3.2-5.0 [facility] Work Phone: Serum or plasma albumin/glob ulin mass ratioon 03-19-2022 Albumin/Globulin [Mass ratio] 1.0 {ratio} 0.9-2.4 [facility] Work Phone: Serum or plasma calcium zoë urement (mass/volume)on 03-19-2022 Calcium [Mass/Vol] 8.9 mg/dL 8.5-10.1 [facility] Work Phone: Serum or plasma cholesterol in HDL measurement (mass/volume)on 03-19-2022 Cholesterol in HDL [Mass/Vol] 51 mg/dL >40 [facility] Work Phone: Comment on above: The drugs N-Acetylcy steine and Metamizole may falsely depress this assay. Reference Range HDL <40 mg/dL Low HDL Cholesterol HDL >or= 60 mg/dL High HDL Cholesterol Serum or plasma cholesterol in VLDL measurement (mass/volume)on 03-19-2022 Cholesterol in VLDL [Mass/Vol] 17 mg/dL 5-40 [facility] Work Phone: Serum or plasma creatinine m easurement (mass/volume)on 03-19-2022 Creatinine [Mass/Vol] 0.84 mg/dL 0.55-1.02 [facility] Work Phone: Comment on above: The validity of the calculated GFR & GFRAA in patients over 70 years has not been determined. Clinical correlation is essential. Serum or plasma low density lipoprotein (LDL) cholesterol measurement (mass/volume)on 03-19-2022 Cholesterol in LDL [Mass/Vol] 56 mg/dL 0-130 [facility] Work Phone: Serum or plasma urea nitroge n measurement (mass/volume)on 03-19-2022 Urea nitrogen [Mass/Vol] 21 mg/dL 7-18 [facility] Work Phone: Thin prep Papanicolaou smear with manual screeningon 03-19-2022 Thin prep Papanicolaou smear with manual screening 16 U/L 15-37 [facility] Work Phone: [phone] Thin prep Papanicolaou smear with manual screening 6 5-15 [facility] Work Phone: Basophil percentageon 2021 Chloride [Moles/Vol] 107 mmol/L 98-107 [facility] Work Phone: Glucose [Mass/Vol] 82 mg/dL 74-106 [facility] Work Phone: Potassium [Moles/Vol] 5.0 mmol/L 3.5-5.1 [facility] Work Phone: Comment on above: Slight Hemolysis, Re sult may be falsely increased. Sodium [Moles/Vol] 140 mmol/L 136-145 [facility] Work Phone: WBC (Bld) [#/Vol] 7.9 10*3/uL 4.4-11.0 [facility] Work Phone: Blood erythrocytes count (nu mber/volume)on 12-11-2021 RBC (Bld) [#/Vol] 4.51 10*6/uL 4.2-5.4 [facility] [facility] Work Phone: Blood hemoglobin measurement (mass/volume)on 12-11-2021 Hemoglobin (Bld) [Mass/Vol] 12.8 g/dL 12.0-15.0 [facility] Work Phone: Blood platelet mean volumeon 12-11-2021 Platelet mean volume (Bld) [Entitic vol] 10.6 fL 6.2-12.0 [facility] Work Phone: [phone] Determination of erythrocyte mean corpuscular volume (MCV)on 12-11-2021 MCV (RBC) [Entitic vol] 92.5 fL 81-99 [facility] Work Phone: [phone] Hematocrit Auto (Bld) [Volum e fraction]on 12-11-2021 Hematocrit (Bld) [Volume fraction] 41.7 % 37-47 [facility] Work Phone: [phone] Laboratory - Chemistry and C hemistry - challengeon 12-11-2021 CO2 [Moles/Vol] 32.0 mmol/L 21.0-32.0 [facility] Work Phone: [phone] Urea nitrogen/Creatinine [Mass ratio] 29.5 mg/mg 10-20 [facility] Work Phone: [phone] Laboratory - Hematology and Cell countson 12-11-2021 Erythrocyte distribution width (RBC) [Entitic vol] 50.9 fL 35.1-43.9 [facility] Work Phone: [phone] Erythrocyte distribution width (RBC) [Ratio] 14.9 % 11.6-14.6 [facility] Work Phone: [phone] MCH (RBC) [Entitic mass] 28.4 pg 27.0-32.0 [facility] Work Phone: [phone] MCHC Auto (RBC) [Mass/Vol]on 12-11-2021 MCHC (RBC) [Mass/Vol] 30.7 g/dL 32-36 [facility] Work Phone: [phone] No Panel Informationon 12-11 Estimated GFR (MDRD) Amer 90 mL/min >60 [facility] Work Phone: [phone] Comment on above: GFR Calc Estimated GFR (MDRD) Non-Af Amer 75 mL/min >60 [facility] Work Phone: [phone] Comment on above: Non- GFR Calc Platelets bldon 12-11-2021 Platelets (Bld) [#/Vol] 278 10*3/uL 150-450 [facility] Work Phone: Serum or plasma calcium zoë urement (mass/volume)on 12-11-2021 Calcium [Mass/Vol] 9.6 mg/dL 8.5-10.1 [facility] Work Phone: [phone] Serum or plasma creatinine m easurement (mass/volume)on 12-11-2021 Creatinine [Mass/Vol] 0.78 mg/dL 0.55-1.02 [facility] Work Phone: Comment on above: The validity of the calculated GFR & GFRAA in patients over 70 years has not been determined. Clinical correlation is essential. Serum or plasma urea nitroge n measurement (mass/volume)on 12-11-2021 Urea nitrogen [Mass/Vol] 23 mg/dL 7-18 [facility] Work Phone: Thin prep Papanicolaou smear with manual screeningon 12-11-2021 Thin prep Papanicolaou smear with manual screening 1 5-15 [facility] Work Phone: Basophil percentageon 2021 Bilirubin [Mass/Vol] 1.00 mg/dL 0.20-1.00 [facility] Work Phone: Comment on above: For patients on eltr ombopag therapy, use of Dimension [place] TBIL is not recommended. Chloride [Moles/Vol] 107 mmol/L 98-107 [facility] Work Phone: [phone] Cholesterol [Mass/Vol] 132 mg/dL <200 [facility] Work Phone: [phone] Comment on above: <200 mg/dL Desirable 200-240 mg/dL Borderline >240 mg/dL High Risk Glucose [Mass/Vol] 75 mg/dL 74-106 [facility] Work Phone: [phone] Potassium [Moles/Vol] 4.1 mmol/L 3.5-5.1 [facility] Work Phone: [phone] Protein [Mass/Vol] 5.2 g/dL 6.4-8.2 [facility] Work Phone: [phone] Sodium [Moles/Vol] 138 mmol/L 136-145 [facility] Work Phone: [phone] Triglyceride [Mass/Vol] 75 mg/dL [facility] Work Phone: [phone] Comment on above: The drugs N-Acetylcy steine and Metamizole may falsely depress this assay.Serum Triglycerides Reference Interval Normal <150 mg/dL Borderline high 150 - 199 mg/dL High 200 - 499 mg/dL Very High > or = 500 mg/dL WBC (Bld) [#/Vol] 5.1 10*3/uL 4.4-11.0 [facility] Work Phone: [phone] Blood erythrocytes count (nu mber/volume)on 10-16-2021 RBC (Bld) [#/Vol] 2.93 10*6/uL 4.2-5.4 [facility] Work Phone: [phone] Blood hemoglobin measurement (mass/volume)on 10-16-2021 Hemoglobin (Bld) [Mass/Vol] 9.2 g/dL 12.0-15.0 [facility] Work Phone: [phone] Blood platelet mean volumeon 10-16-2021 Platelet mean volume (Bld) [Entitic vol] 9.2 fL 6.2-12.0 [facility] Work Phone: [phone] Determination of erythrocyte mean corpuscular volume (MCV)on 10-16-2021 MCV (RBC) [Entitic vol] 100.0 fL 81-99 [facility] Work Phone: [phone] Hematocrit Auto (Bld) [Volum e fraction]on 10-16-2021 Hematocrit (Bld) [Volume fraction] 29.3 % 37-47 [facility] Work Phone: [phone] Laboratory - Chemistry and C hemistry - challengeon 10-16-2021 ALP [Catalytic activity/Vol] 168 U/L 45-117 [facility] Work Phone: [phone] ALT [Catalytic activity/Vol] 17 U/L 13-56 [facility] Work Phone: [phone] CO2 [Moles/Vol] 26.0 mmol/L 21.0-32.0 [facility] Work Phone: [phone] Globulin (S) [Mass/Vol] 2.5 g/dL 2.2-4.2 [facility] Work Phone: [phone] Magnesium [Mass/Vol] 2.7 mg/dL 1.6-2.6 [facility] Work Phone: [phone] Urea nitrogen/Creatinine [Mass ratio] 24.4 mg/mg 10-20 [facility] Work Phone: [phone] Laboratory - Hematology and Cell countson 10-16-2021 Erythrocyte distribution width (RBC) [Entitic vol] 56.0 fL 35.1-43.9 [facility] Work Phone: [phone] Erythrocyte distribution width (RBC) [Ratio] 15.4 % 11.6-14.6 [facility] Work Phone: [phone] MCH (RBC) [Entitic mass] 31.4 pg 27.0-32.0 [facility] Work Phone: [phone] MCHC Auto (RBC) [Mass/Vol]on 10-16-2021 MCHC (RBC) [Mass/Vol] 31.4 g/dL 32-36 [facility] Work Phone: No Panel Informationon 10-16 Estimated GFR (MDRD) Amer 129 mL/min >60 [facility] Work Phone: Comment on above: GFR Calc Estimated GFR (MDRD) Non-Af Amer 107 mL/min >60 [facility] Work Phone: [phone] Comment on above: Non- GFR Calc Thyroid Stimulating Hormone (TSH) 0.77 uIU/mL 0.358-3.74 [facility] Work Phone: [phone] Vitamin D 25-Hydroxy 11.2 ng/mL [facility] Work Phone: [phone] Comment on above: Vitamin D 25(OH) Sta tus Range Deficiency <20 ng/mL (50nmol/L) Insufficiency 20 - 30 ng/mL (50 - 75 nmol/L) Sufficiency 30 - 100 ng/mL (75 - 250 nmol/L) Toxicity >100 ng/mL (>250 nmol/L) Platelets bldon 10-16-2021 Platelets (Bld) [#/Vol] 501 10*3/uL 150-450 [facility] Work Phone: Serum or plasma albumin zoë urement (mass/volume)on 10-16-2021 Albumin [Mass/Vol] 2.7 g/dL 3.2-5.0 [facility] Work Phone: Serum or plasma albumin/glob ulin mass ratioon 10-16-2021 Albumin/Globulin [Mass ratio] 1.1 {ratio} 0.9-2.4 [facility] Work Phone: Serum or plasma calcium zoë urement (mass/volume)on 10-16-2021 Calcium [Mass/Vol] 8.2 mg/dL 8.5-10.1 [facility] Work Phone: Serum or plasma cholesterol in HDL measurement (mass/volume)on 10-16-2021 Cholesterol in HDL [Mass/Vol] 48 mg/dL [facility] Work Phone: Comment on above: The drugs N-Acetylcy steine and Metamizole may falsely depress this assay. Reference Range HDL <40 mg/dL Low HDL Cholesterol HDL >or= 60 mg/dL High HDL Cholesterol Serum or plasma cholesterol in VLDL measurement (mass/volume)on 10-16-2021 Cholesterol in VLDL [Mass/Vol] 15 mg/dL 5-40 [facility] Work Phone: Serum or plasma creatinine m easurement (mass/volume)on 10-16-2021 Creatinine [Mass/Vol] 0.57 mg/dL 0.55-1.02 [facility] Work Phone: Comment on above: The validity of the calculated GFR & GFRAA in patients over 70 years has not been determined. Clinical correlation is essential. Serum or plasma low density lipoprotein (LDL) cholesterol measurement (mass/volume)on 10-16-2021 Cholesterol in LDL [Mass/Vol] 69 mg/dL 0-130 [facility] Work Phone: Serum or plasma urea nitroge n measurement (mass/volume)on 10-16-2021 Urea nitrogen [Mass/Vol] 14 mg/dL 7-18 [facility] Work Phone: Thin prep Papanicolaou smear with manual screeningon 10-16-2021 Thin prep Papanicolaou smear with manual screening 18 U/L 15-37 [facility] Work Phone: Thin prep Papanicolaou smear with manual screening 5 5-15 [facility] Work Phone: Whole blood hemoglobin A1c/t otal hemoglobin ratio (mass fraction)on 10-16-2021 HbA1c (Bld) [Mass fraction] 4.8 % 3.8-5.6 [facility] Work Phone: Comment on above: Normal < 5.7 % Predi abetic 5.7 - 6.4 % Diabetic >or= 6.5 % Please note range changes. Basic Metabolic Panelon Calcium [Mass/Vol] 8.0 mg/dL Low 8.4-10.4 [facility] Comment on above: Performed By: #### T SGL #### [facility] Glucose [Mass/Vol] 172 mg/dL High 70-100 [facility] Comment on above: Performed By: #### T SGL #### [facility] Urea nitrogen [Mass/Vol] 10 mg/dL Normal 9-20 [facility] Comment on above: Performed By: #### T SGL #### [facility] Anion gap [Moles/Vol] 4 mmol/L Normal 3-13 [facility] Comment on above: Performed By: #### T SGL #### [facility] CO2 [Moles/Vol] 27 mmol/L Normal 22-30 [facility] Comment on above: Performed By: #### T SGL #### [facility] Creatinine [Mass/Vol] 0.50 mg/dL Low 0.52-1.25 [facility] Comment on above: Performed By: #### T SGL #### [facility] GFR/1.73 sq M.predicted among blacks MDRD (S/P/Bld) [Vol rate/Area] mL/min/{1.73_m2} Normal >60 [facility] Comment on above: Performed By: #### T SGL #### [facility] GFR/1.73 sq M.predicted among non-blacks MDRD (S/P/Bld) [Vol rate/Area] 88.5 mL/min/{1.73_m2} Normal >60 [facility] Comment on above: Result Comment: KDIG O guidelines provide the following GFR categories: Stage GFR(ml/min/1.73 m2) Terms G1 >=90 Normal or high G2 60-89 Mildly decreased* G3a 45-59 Mildly to moderately decreased G3b 30-44 Moderately to severely decreased G4 15-29 Severely decreased G5 <15 Kidney failure *Relative to young adult level. In the absence of evidence of kidney damage, neither GFR category G1 nor G2 fulfill the criteria for CKD. The CKD-EPI equation is validated in individuals 18 years of age and older. Currently the best equation for estimating glomerular filtration rate (GFR) from serum creatinine in children is the Bedside Mckenzie equation. It is less accurate in patients with extremes of muscle mass, restriction of dietary protein, ingestion of creatine, extra-renal metabolism of creatinine, or treatment with medications that affect renal tubular creatinine secretion. Performed By: #### T SGL #### [facility] Potassium [Moles/Vol] 3.5 mmol/L Normal 3.5-5.1 [facility] Comment on above: Performed By: #### T SGL #### [facility] Chloride [Moles/Vol] 100 mmol/L Normal 98-107 [facility] Comment on above: Performed By: #### T SGL #### [facility] Sodium [Moles/Vol] 132 mmol/L Low 135-145 [facility] Comment on above: Performed By: #### T SGL #### [facility] Basic Metabolic Panel w/ Ref suzan to MGon 10-06-2021 Anion gap [Moles/Vol] 4 mmol/L 3 - 13 mmol/L [facility] Calcium [Mass/Vol] 8.0 mg/dL Low 8.4 - 10. 4 mg/dL [facility] Chloride [Moles/Vol] 100 mmol/L 98 - 10 7 mmol/L [facility] CO2 [Moles/Vol] 27 mmol/L 22 - 30 mmol/L [facility] Creatinine [Mass/Vol] 0.5 mg/dL Low 0.52 - 1.25 mg/dL [facility] EGFR IF NonAfrican Central African 88.5 mL/min >60 [facility] Comment on above: KDIGO guidelines pro vide the following GFR categories: Stage GFR(ml/min/1.73 m2) Terms G1 >=90 Normal or high G2 60-89 Mildly decreased* G3a 45-59 Mildly to moderately decreased G3b 30-44 Moderately to severely decreased G4 15-29 Severely decreased G5 <15 Kidney failure *Relative to young adult level. In the absence of evidence of kidney damage, neither GFR category G1 nor G2 fulfill the criteria for CKD. The CKD-EPI equation is validated in individuals 18 years of age and older. Currently the best equation for estimating glomerular filtration rate (GFR) from serum creatinine in children is the Bedside Mckenzie equation. It is less accurate in patients with extremes of muscle mass, restriction of dietary protein, ingestion of creatine, extra-renal metabolism of creatinine, or treatment with medications that affect renal tubular creatinine secretion. GFR/1.73 sq M.predicted among blacks MDRD (S/P/Bld) [Vol rate/Area] mL/min/{1.73_m2} >60 mL/min [facility] Glucose [Mass/Vol] 172 mg/dL High 70 - 100 mg/dL [facility] Interpretation and review of laboratory results Abnormal [facility] Potassium [Moles/Vol] 3.5 mmol/L 3.5 - 5.1 mmol/L [facility] Sodium [Moles/Vol] 132 mmol/L Low 135 - 145 mmol/L [facility] Urea nitrogen (BldV) [Mass/Vol] 10 mg/dL 9 - 20 mg/dL [facility] Test Performed by [facility] [employer] [facility], [address] [place], [place] [id number] [place] [address] LAB [facility] with Auto Differentialon 10-06-2021 Absolute Baso # 0.1 10*3/uL 0.0 - 0.2 10*3/uL [facility] Absolute Neut # 6.1 10*3/uL 1.8 - 7.0 10*3/uL [facility] Basophils/100 WBC (Bld) 0.8 % 0.0 - 2.0 % [facility] Eosinophils (Bld) [#/Vol] 0.1 10*3/uL 0.0 - 0.5 10*3/uL [facility] Eosinophils/100 WBC (Bld) 1.2 % 1.0 - 6.0 % [facility] Granulocytes/100 WBC (Bld) 80.0 % 40.0 - 80.0 % [facility] Hematocrit (Bld) [Volume fraction] 22.7 % Low 35.0 - 47.0 % [facility] Hemoglobin.gastrointesti nal spec 1 Ql (Stl) 7.4 g/dL Low 11.7 - 16.0 g/dL [facility] Interpretation and review of laboratory results Abnormal [facility] Lymphocytes (Bld) [#/Vol] 0.7 10*3/uL Low 1.0 - 4.3 10*3/uL [facility] Lymphocytes/100 WBC (Bld) 9.3 % Low 20.0 - 40.0 % [facility] MCH (RBC) [Entitic mass] 30.6 pg 26. 0 - 34.0 pg [facility] MCHC (RBC) [Mass/Vol] 32.8 % 32.0 - 36.0 % [facility] MCV (RBC) [Entitic vol] 93.3 fL 79.0 - 98.0 fL [facility] Monocytes (Bld) [#/Vol] 0.7 10*3/uL 0.0 - 0.8 10*3/uL [facility] Monocytes/100 WBC (Bld) 8.7 % 2.0 - 10.0 % [facility] Platelet distribution width (Bld) [Ratio] 14.8 % High 11.5 - 14.5 % [facility] Platelet mean volume (Bld) [Entitic vol] 7.5 fL 7.4 - 10.4 fL [facility] Platelets (Bld) [#/Vol] 349 10*3/uL 140 - 440 10*3/uL [facility] RBC (Bld) [#/Vol] 2.43 10*6/uL Low 3.80 - 5.2 0 10*6/uL [facility] WBC (Bld) [#/Vol] 7.7 10*3/uL 3.6 - 10.7 10*3/uL [facility] Test Performed by [facility] [employer] [facility], [address] [place], [place] [id number] [place] [address] LAB [facility] Hem[facility] w/ Autodiffon 10-06 Abs Baso Cnt 0.1 10*3/uL Normal 0.0-0.2 [facility] Comment on above: Performed By: #### P T #### [facility] [address] [place] [address] Abs Neutrophile Cnt 6.1 10*3/uL Normal 1.8-7.0 [facility] Comment on above: Performed By: #### P T #### [facility] [address] [place] [address] Basophils/100 WBC (Bld) 0.8 % Normal 0.0-2.0 [facility] Comment on above: Performed By: #### P T #### [facility] [address] [place] [address] Eosinophils (Bld) [#/Vol] 0.1 10*3/uL Normal 0.0-0.5 [facility] Comment on above: Performed By: #### P T #### [facility] [address] [place] [address] Eosinophils/100 WBC (Bld) 1.2 % Normal 1.0-6.0 [facility] Comment on above: Performed By: #### P T #### [facility] [address] [place] [address] Erythrocyte distribution width (RBC) [Ratio] 14.8 % High 11.5-14.5 [facility] Comment on above: Performed By: #### P T #### [facility] [address] [place] [address] Granulocytes/100 WBC (Bld) 80.0 % Normal 40.0-80.0 [facility] Comment on above: Performed By: #### P T #### [facility] [address] [place] [address] Hematocrit (Bld) [Volume fraction] 22.7 % Low 35.0-47.0 [facility] Comment on above: Performed By: #### P T #### [facility] [address] [place] [address] Hemoglobin (Bld) [Mass/Vol] 7.4 g/dL Low 11.7-16.0 [facility] Comment on above: Performed By: #### P T #### [facility] [address] [place] [address] Lymphocytes (Bld) [#/Vol] 0.7 10*3/uL Low 1.0-4.3 [facility] Comment on above: Performed By: #### P T #### [facility] [address] [place] [address] Lymphocytes/100 WBC (Bld) 9.3 % Low 20.0-40.0 [facility] Comment on above: Performed By: #### P T #### [facility] [address] [place] [address] MCH (RBC) [Entitic mass] 30.6 pg Normal 26.0-34.0 [facility] Comment on above: Performed By: #### P T #### [place] [address] [place] [address] MCHC 32.8 % Normal 32.0-36.0 [facility] Comment on above: Performed By: #### P T #### [facility] [address] [place] [address] MCV (RBC) [Entitic vol] 93.3 fL Normal 79.0-98.0 [facility] Comment on above: Performed By: #### P T #### [facility] [address] [place] [address] Monocytes (Bld) [#/Vol] 0.7 10*3/uL Normal 0.0-0.8 [facility] Comment on above: Performed By: #### P T #### [facility] [address] [place] [address] Monocytes/100 WBC (Bld) 8.7 % Normal 2.0-10.0 [facility] Comment on above: Performed By: #### P T #### [facility] [address] [place] [address] Platelet mean volume (Bld) [Entitic vol] 7.5 fL Normal 7.4-10.4 [facility] Comment on above: Performed By: #### P T #### [facility] [address] [place] [address] Platelets (Bld) [#/Vol] 349 10*3/uL Normal 140-440 [facility] Comment on above: Performed By: #### P T #### [facility] [address] [place] [address] RBC (Bld) [#/Vol] 2.43 10*6/uL Low 3.80-5.20 [facility] Comment on above: Performed By: #### P T #### [facility] [address] [place] [address] WBC (Bld) [#/Vol] 7.7 10*3/uL Normal 3.6-10.7 [facility] Comment on above: Performed By: #### P T #### [facility] [address] [place] [address] Magnesiumon 10-06-2021 Magnesium [Mass/Vol] 2.0 mg/dL Normal 1.6-2.3 [facility] Comment on above: Performed By: #### T SGL #### [facility] Magnesium [Mass/Vol] 2.0 mg/dL 1.6 - 2 .3 mg/dL [facility] Test Performed by [facility], [address] [place] [address] LAB [facility] POCT COVID-19, Antigenon SARS-CoV-2 Nucleocapsid Antigen Negative Negative NA [facility] Comment on above: A negative result does not rule out the possibility of SARS-CoV-2 infection. NAAT-based methods should be considered for symptomatic patients presenting greater than seven days after onset of symptoms. Method: Lateral flow immunoassay. Fact sheets for healthcare providers and patients can be found at the following sites: https://www.fda.gov/media/801917/download https://www.fda.gov/media/815100/download Test Performed by [facility], [address] [place] LAB [facility] SARS-CoV-2 Antigenon 022 SARS-CoV-2 Antigen Negative Normal Negative [facility] Comment on above: Result Comment: A negative result does not rule out the possibility of SARS-CoV-2 infection. NAAT-based methods should be considered for symptomatic patients presenting greater than seven days after onset of symptoms. Method: Lateral flow immunoassay. Fact sheets for healthcare providers and patients can be found at the following sites: https://www.[employer].gov/media/560931/download https://www.[employer].gov/media/591496/download Performed By: #### P T #### [facility] [address] [place] [address] Basic Metabolic Panelon 03-0 Urea nitrogen [Mass/Vol] 21 mg/dL High - [facility] Comment on above: Performed By: #### C VFLR #### [facility] [address] [place] [address] , [address] Creatinine [Mass/Vol] 0.56 mg/dL Normal 0.52-1.25 [facility] Comment on above: Performed By: #### C VFLR #### [facility] [address] [place] [address] , [address] GFR/1.73 sq M.predicted among blacks MDRD (S/P/Bld) [Vol rate/Area] mL/min/{1.73_m2} Normal >60 [facility] Comment on above: Performed By: #### C VFLR #### [facility] [address] [place] [address] , [address] GFR/1.73 sq M.predicted among non-blacks MDRD (S/P/Bld) [Vol rate/Area] 85.2 mL/min/{1.73_m2} Normal >60 [facility] Comment on above: Result Comment: KDIG O guidelines provide the following GFR categories: Stage GFR(ml/min/1.73 m2) Terms G1 >=90 Normal or high G2 60-89 Mildly decreased* G3a 45-59 Mildly to moderately decreased G3b 30-44 Moderately to severely decreased G4 15-29 Severely decreased G5 <15 Kidney failure *Relative to young adult level. In the absence of evidence of kidney damage, neither GFR category G1 nor G2 fulfill the criteria for CKD. The CKD-EPI equation is validated in individuals 18 years of age and older. Currently the best equation for estimating glomerular filtration rate (GFR) from serum creatinine in children is the Bedside Mckenzie equation. It is less accurate in patients with extremes of muscle mass, restriction of dietary protein, ingestion of creatine, extra-renal metabolism of creatinine, or treatment with medications that affect renal tubular creatinine secretion. Performed By: #### C VFLR #### [facility] [address] [place] [address] , [address] Chloride [Moles/Vol] 103 mmol/L Normal 98-107 [facility] Comment on above: Performed By: #### C VFLR #### [place] [address] [place] [address] , [address] Potassium [Moles/Vol] 3.5 mmol/L Normal 3.5-5.1 [facility] Comment on above: Performed By: #### C VFLR #### [place] [address] [place] [address] , [address] Sodium [Moles/Vol] 132 mmol/L Low 135-145 [facility] Comment on above: Performed By: #### C VFLR #### [place] [address] [place] [address] , [address] Anion gap [Moles/Vol] 2 mmol/L Low 3-13 [facility] Comment on above: Performed By: #### C VFLR #### [place] [address] [place] [address] , [address] Calcium [Mass/Vol] 7.9 mg/dL Low 8.4-10.4 [facility] Comment on above: Performed By: #### C VFLR #### [place] [address] [place] [address] , [address] CO2 [Moles/Vol] 27 mmol/L Normal 22-30 [facility] Comment on above: Performed By: #### C VFLR #### [place] [address] [place] [address] , [address] Glucose [Mass/Vol] 97 mg/dL Normal 70-100 [facility] Comment on above: Performed By: #### C VFLR #### [place] [address] [place] [address] , [address] Chloride [Moles/Vol] 103 mmol/L 98 - 10 7 mmol/L [facility] Creatinine [Mass/Vol] 0.56 mg/dL 0.52 - 1.25 mg/dL [facility] EGFR IF NonAfrican Central African 85.2 mL/min >60 [facility] Comment on above: KDIGO guidelines pro vide the following GFR categories: Stage GFR(ml/min/1.73 m2) Terms G1 >=90 Normal or high G2 60-89 Mildly decreased* G3a 45-59 Mildly to moderately decreased G3b 30-44 Moderately to severely decreased G4 15-29 Severely decreased G5 <15 Kidney failure *Relative to young adult level. In the absence of evidence of kidney damage, neither GFR category G1 nor G2 fulfill the criteria for CKD. The CKD-EPI equation is validated in individuals 18 years of age and older. Currently the best equation for estimating glomerular filtration rate (GFR) from serum creatinine in children is the Bedside Mckenzie equation. It is less accurate in patients with extremes of muscle mass, restriction of dietary protein, ingestion of creatine, extra-renal metabolism of creatinine, or treatment with medications that affect renal tubular creatinine secretion. GFR/1.73 sq M.predicted among blacks MDRD (S/P/Bld) [Vol rate/Area] mL/min/{1.73_m2} >60 mL/min [facility] Potassium [Moles/Vol] 3.5 mmol/L 3.5 - 5.1 mmol/L [facility] Sodium [Moles/Vol] 132 mmol/L Low 135 - 145 mmol/L [facility] Urea nitrogen (BldV) [Mass/Vol] 21 mg/dL High 9 - 20 mg/dL [facility] CBC with Auto Differentialon 10-03-2021 Absolute Baso # 0.0 10*3/uL 0.0 - 0.2 10*3/uL [facility] Absolute Neut # 6.3 10*3/uL 1.8 - 7.0 10*3/uL [facility] Basophils/100 WBC (Bld) 0.2 % 0.0 - 2.0 % [facility] Eosinophils (Bld) [#/Vol] 0.1 10*3/uL 0.0 - 0.5 10*3/uL [facility] Eosinophils/100 WBC (Bld) 1.3 % 1.0 - 6.0 % [facility] Granulocytes/100 WBC (Bld) 73.8 % 40.0 - 80.0 % [facility] Hematocrit (Bld) [Volume fraction] 21.9 % Low 35.0 - 47.0 % [facility] Hemoglobin.gastrointesti nal spec 1 Ql (Stl) 7.3 g/dL Low 11.7 - 16.0 g/dL [facility] Lymphocytes (Bld) [#/Vol] 1.2 10*3/uL 1.0 - 4.3 10*3/uL [facility] Lymphocytes/100 WBC (Bld) 13.6 % Low 20.0 - 40.0 % [facility] MCH (RBC) [Entitic mass] 31.2 pg 26. 0 - 34.0 pg [facility] MCHC (RBC) [Mass/Vol] 33.4 % 32.0 - 36.0 % [facility] MCV (RBC) [Entitic vol] 93.6 fL 79.0 - 98.0 fL [facility] Monocytes (Bld) [#/Vol] 1.0 10*3/uL High 0.0 - 0.8 10*3/uL [facility] Monocytes/100 WBC (Bld) 11.1 % High 2.0 - 10.0 % [facility] Platelet distribution width (Bld) [Ratio] 14.3 % 11.5 - 14.5 % [facility] Platelet mean volume (Bld) [Entitic vol] 7.5 fL 7.4 - 10.4 fL [facility] Platelets (Bld) [#/Vol] 321 10*3/uL 140 - 440 10*3/uL [facility] RBC (Bld) [#/Vol] 2.34 10*6/uL Low 3.80 - 5.2 0 10*6/uL [facility] WBC (Bld) [#/Vol] 8.6 10*3/uL 3.6 - 10.7 10*3/uL [facility] CULTURE URINEon 10-03-2021 CULTURE URINE CULTURE URINE --> Status: F No growth (<1,000 CFU/ml). Normal [facility] Comment on above: Performed By: #### T SGL #### [facility] [employer] [facility] Culture, Urineon 10-03-2021 Bacteria identified Cx Nom (U) No growth (<1,000 CFU/ml). [facility] Test Performed by [facility], [address] [place] [id number] [place] [address] [facility] Glucose,Bedsideon 10-03-2021 Glucose [Mass/Vol] 161 mg/dL High 70-100 [facility] Comment on above: Test performed by gl ucose meter. Results may be 10%-15% lower than serum/plasma values. (CLIA ID [id number]) Result Comment: Test performed by glucose meter. Results may be 10%-15% lower than serum/plasma values. (CLIA ID [id number]) Performed By: #### P T #### [facility] [address] [place] [address] Glucose [Mass/Vol] 191 mg/dL High 70-100 [facility] Comment on above: Result Comment: Test performed by glucose meter. Results may be 10%-15% lower than serum/plasma values. (CLIA ID [id number]) Performed By: #### P T #### [facility] [address] [place] [address] Glucose [Mass/Vol] 144 mg/dL High 70-100 [facility] Comment on above: Result Comment: Test performed by glucose meter. Results may be 10%-15% lower than serum/plasma values. (CLIA ID [id number]) Performed By: #### T SGL #### [facility] Hemogram w/ Autodiffon 10-03 Abs Baso Cnt 0.0 10*3/uL Normal 0.0-0.2 [facility] Comment on above: Performed By: #### C VFLR #### [facility] [address] [place] [address] , [phone] Abs Neutrophile Cnt 6.3 10*3/uL Normal 1.8-7.0 [facility] Comment on above: Performed By: #### C VFLR #### [facility] [address] [place] [address] , [address] Basophils/100 WBC (Bld) 0.2 % Normal 0.0-2.0 [facility] Comment on above: Performed By: #### C VFLR #### [facility] [address] [place] [address] , [address] Eosinophils (Bld) [#/Vol] 0.1 10*3/uL Normal 0.0-0.5 [facility] Comment on above: Performed By: #### C VFLR #### [facility] [address] [place] [address] , [address] Eosinophils/100 WBC (Bld) 1.3 % Normal 1.0-6.0 [facility] Comment on above: Performed By: #### C VFLR #### [facility] [address] [place] [address] , [address] Erythrocyte distribution width (RBC) [Ratio] 14.3 % Normal 11.5-14.5 [facility] Comment on above: Performed By: #### C VFLR #### [facility] [address] [place] [address] , [address] Granulocytes/100 WBC (Bld) 73.8 % Normal 40.0-80.0 [facility] Comment on above: Performed By: #### C VFLR #### [facility] [address] [place] [address] , [address] Hematocrit (Bld) [Volume fraction] 21.9 % Low 35.0-47.0 [facility] Comment on above: Performed By: #### C VFLR #### [facility] [address] [place] [address] , [address] Hemoglobin (Bld) [Mass/Vol] 7.3 g/dL Low 11.7-16.0 [facility] Comment on above: Performed By: #### C VFLR #### [facility] [address] [place] [address] , [address] Lymphocytes (Bld) [#/Vol] 1.2 10*3/uL Normal 1.0-4.3 [facility] Comment on above: Performed By: #### C VFLR #### [facility] [address] [place] [address] , [address] Lymphocytes/100 WBC (Bld) 13.6 % Low 20.0-40.0 [facility] Comment on above: Performed By: #### C VFLR #### [facility] [address] [place] [address] , [address] MCH (RBC) [Entitic mass] 31.2 pg Normal 26.0-34.0 [facility] Comment on above: Performed By: #### C VFLR #### [facility] [address] [place] [address] , [address] MCHC 33.4 % Normal 32.0-36.0 [facility] Comment on above: Performed By: #### C VFLR #### [facility] [address] [place] [address] , [address] MCV (RBC) [Entitic vol] 93.6 fL Normal 79.0-98.0 [facility] Comment on above: Performed By: #### C VFLR #### [facility] [address] [place] [address] , [address] Monocytes (Bld) [#/Vol] 1.0 10*3/uL High 0.0-0.8 [facility] Comment on above: Performed By: #### C VFLR #### [facility] [address] [place] [address] , [address] Monocytes/100 WBC (Bld) 11.1 % High 2.0-10.0 [facility] Comment on above: Performed By: #### C VFLR #### [facility] [address] [place] [address] , [address] Platelet mean volume (Bld) [Entitic vol] 7.5 fL Normal 7.4-10.4 [facility] Comment on above: Performed By: #### C VFLR #### [facility] [address] [place] [address] , [address] Platelets (Bld) [#/Vol] 321 10*3/uL Normal 140-440 [facility] Comment on above: Performed By: #### C VFLR #### [facility] [address] [place] [address] , [address] RBC (Bld) [#/Vol] 2.34 10*6/uL Low 3.80-5.20 [facility] Comment on above: Performed By: #### C VFLR #### [facility] [address] [place] [address] , [address] WBC (Bld) [#/Vol] 8.6 10*3/uL Normal 3.6-10.7 [facility] Comment on above: Performed By: #### C VFLR #### [facility] [address] [place] [address] , [address] No Panel Informationon 10-03 Interpretation and review of laboratory results Abnormal [facility] Test Performed by [facility], [address], [place], [place] [address] [facility] Osmolalityon 10-03-2021 Serum Osmolality 283 mosm/kg 280 - 300 mosm/kg [facility] Osmolality,Serumon Osmolality,Serum 283 mosm/kg Normal 280-300 [facility] Comment on above: Performed By: #### C VFLR #### [facility] [address] [place], [place] , POCT Glucoseon 10-03-2021 Glucose [Mass/Vol] 191 mg/dL High 70 - 100 mg/dL [facility] Work Phone: Comment on above: Test performed by gl ucose meter. Results may be 10%-15% lower than serum/plasma values. (CLIA ID [id number]) POCT GlucoseOrdered By: Infe ction [place] on 10-03-2021 Glucose [Mass/Vol] 144 mg/dL High 70 - 100 mg/dL [facility] Comment on above: Test performed by gl ucose meter. Results may be 10%-15% lower than serum/plasma values. (CLIA ID [id number]) TSHon 10-03-2021 TSH Qn 0.855 u[IU]/mL 0.465 - 4.680 u[IU]/mL [facility] Thyroid Stim. Hormoneon Thyroid Stim. Hormone 0.855 u[IU]/mL Normal 0.465-4.68 0 [facility] Comment on above: Performed By: #### C VFLR #### [facility] [address] [place] [address] , [address] Vitamin B12on 10-03-2021 Cobalamin (Vitamin B12) [Mass/Vol] 331 pg/mL Normal 239-931 [facility] Comment on above: Performed By: #### C VFLR #### [facility] [address] [place] [address] , [address] Cobalamin (Vitamin B12) [Mass/Vol] 331 pg/mL 239 - 931 pg/mL [facility] Add On Lab Teston 10-02-2021 Add On Accepted [facility] Comment on above: Specimen available & acceptable for analysis. Test Performed by [facility], [address], [place], [place] [address] [facility] Add On Rejected [facility] Comment on above: NEED GOLD TOP TUBE F OR SERUM OSMOLALITY Test Performed by [facility], [address], [place], [place] [address] [facility] Add on test from HISon 10-02 Add on test from HIS Accepted Normal [facility] Comment on above: Result Comment: Spec imen available & acceptable for analysis. Performed By: #### C VFLR #### [facility] [address] [place] [address] , [address] Add on test from HIS Rejected Normal [facility] Comment on above: Result Comment: NEED GOLD TOP TUBE FOR SERUM OSMOLALITY Performed By: #### T SGL #### [facility] CBC auto differentialon Absolute Baso # 0.0 10*3/uL 0.0 - 0.2 10*3/uL [facility] Absolute Neut # 10.8 10*3/uL High 1.8 - 7.0 10*3/uL [facility] Basophils/100 WBC (Bld) 0.2 % 0.0 - 2.0 % [facility] Eosinophils (Bld) [#/Vol] 0.0 10*3/uL 0.0 - 0.5 10*3/uL [facility] Eosinophils/100 WBC (Bld) 0.1 % Low 1.0 - 6.0 % [facility] Granulocytes/100 WBC (Bld) 84.0 % High 40.0 - 80.0 % [facility] Hematocrit (Bld) [Volume fraction] 24.3 % Low 35.0 - 47.0 % [facility] Hemoglobin.gastrointesti nal spec 1 Ql (Stl) 8.1 g/dL Low 11.7 - 16.0 g/dL [facility] Interpretation and review of laboratory results Abnormal [facility] Lymphocytes (Bld) [#/Vol] 1.1 10*3/uL 1.0 - 4.3 10*3/uL [facility] Lymphocytes/100 WBC (Bld) 8.3 % Low 20.0 - 40.0 % [facility] MCH (RBC) [Entitic mass] 31.3 pg 26. 0 - 34.0 pg [facility] MCHC (RBC) [Mass/Vol] 33.3 % 32.0 - 36.0 % [facility] MCV (RBC) [Entitic vol] 93.8 fL 79.0 - 98.0 fL [facility] Monocytes (Bld) [#/Vol] 0.9 10*3/uL High 0.0 - 0.8 10*3/uL [facility] Monocytes/100 WBC (Bld) 7.4 % 2.0 - 10.0 % [facility] Platelet distribution width (Bld) [Ratio] 13.9 % 11.5 - 14.5 % [facility] Platelet mean volume (Bld) [Entitic vol] 7.6 fL 7.4 - 10.4 fL [facility] Platelets (Bld) [#/Vol] 334 10*3/uL 140 - 440 10*3/uL [facility] RBC (Bld) [#/Vol] 2.59 10*6/uL Low 3.80 - 5.2 0 10*6/uL [facility] WBC (Bld) [#/Vol] 12.8 10*3/uL High 3.6 - 10.7 10*3/uL [facility] Test Performed by [facility], [address] [facility] [address] [place] [place], [place] [id number] [place] [address] [facility] [address] LOWER EXTREMITY RIGHT WO CONTRASTon 10-02-2021 Patient Name: ADORE BABCOCK Computed Tomography ACCESSION EXAM DATE/TIME PROCEDURE ORDERING PROVIDER [id number] 10/02/2021 01:[address] Low Ext w/o Contrast MD BETTS KATHERINE Right CPT code 88533 Reason For Exam (CT Low Ext w/o Contrast Right) R IPDFF, evaulate bone stock of distal femur Report CTR of right lower extremity CLINICAL INDICATION: Periprosthetic femoral shaft fracture. TECHNIQUE: [address] images of the right knee were obtained. Images were reconstructed in sagittal and coronal planes. Multiplanar and 3-D MIP reconstruction was performed with independent workstation software by the radiologist. FINDINGS: There are metallic artifacts related to right knee prosthesis, limiting evaluation. Lateral femoral condylar periprosthetic fracture is identified. There is slight lateral displacement of the lateral femoral condylar fracture fragments. The proximal tibia and fibula are intact. Right knee arthroplasty and prosthetic patella components are aligned and intact. Moderate suprapatellar joint effusion with fat fluid level is observed. Superficial femoral and popliteal arterial atherosclerotic changes are identified. IMPRESSION: Periprosthetic fracture along distal femoral diaphysis with mildly displaced fracture fragments. Right knee arthroplasty components in good alignment. Joint effusion. Peripheral arterial atherosclerosis. Report Dictated on --- Final --- Dictating Physician: JENS CHAVEZ DO, I Signed Date and Time: 10/02/2021 1:35 am Signed by: JENS CHAVEZ DO, I Transcribed Date and Time: 10/02/2021 1:36 [facility] Jens Chavez DO - 10/02/2021 [id number] ACCESSION EXAM DATE/TIME PROCEDURE ORDERING PROVIDER [id number] 10/02/2021 01:[address] Low Ext w/o Contrast MD LATASHA, CHI Right CPT code 55269 Reason For Exam (CT Low Ext w/o Contrast Right) R IPDFF, evaulate bone stock of distal femur Report CTR of right lower extremity CLINICAL INDICATION: Periprosthetic femoral shaft fracture. TECHNIQUE: [address] images of the right knee were obtained. Images were reconstructed in sagittal and coronal planes. Multiplanar and 3-D MIP reconstruction was performed with independent workstation software by the radiologist. FINDINGS: There are metallic artifacts related to right knee prosthesis, limiting evaluation. Lateral femoral condylar periprosthetic fracture is identified. There is slight lateral displacement of the lateral femoral condylar fracture fragments. The proximal tibia and fibula are intact. Right knee arthroplasty and prosthetic patella components are aligned and intact. Moderate suprapatellar joint effusion with fat fluid level is observed. Superficial femoral and popliteal arterial atherosclerotic changes are identified. IMPRESSION: Periprosthetic fracture along distal femoral diaphysis with mildly displaced fracture fragments. Right knee arthroplasty components in good alignment. Joint effusion. Peripheral arterial atherosclerosis. Report Dictated on --- Final --- Dictating Physician: JENS CHAVEZ DO, I Signed Date and Time: 10/02/2021 1:35 am Signed by: JENS CHAVEZ DO, I Transcribed Date and Time: 10/02/2021 1:36 [facility] Work Phone: [facility] Work Phone: CT Low Ext w/o Contrast Righ ton 10-02-2021 CT Low Ext w/o Contrast Right Patient Name: ADORE WALTER Computed Tomography ACCESSION EXAM DATE/TIME PROCEDURE ORDERING PROVIDER [id number] 10/02/2021 01:[address] Low Ext w/o Contrast MD BETTS KATHERINE Right CPT code 19684 Reason For Exam (CT Low Ext w/o Contrast Right) R IPDFF, evaulate bone stock of distal femur Report CTR of right lower extremity CLINICAL INDICATION: Periprosthetic femoral shaft fracture. TECHNIQUE: [address] images of the right knee were obtained. Images were reconstructed in sagittal and coronal planes. Multiplanar and 3-D MIP reconstruction was performed with independent workstation software by the radiologist. FINDINGS: There are metallic artifacts related to right knee prosthesis, limiting evaluation. Lateral femoral condylar periprosthetic fracture is identified. There is slight lateral displacement of the lateral femoral condylar fracture fragments. The proximal tibia and fibula are intact. Right knee arthroplasty and prosthetic patella components are aligned and intact. Moderate suprapatellar joint effusion with fat fluid level is observed. Superficial femoral and popliteal arterial atherosclerotic changes are identified. IMPRESSION: Periprosthetic fracture along distal femoral diaphysis with mildly displaced fracture fragments. Right knee arthroplasty components in good alignment. Joint effusion. Peripheral arterial atherosclerosis. Report Dictated on Final Dictating Physician: JENS CHAVEZ DO, I Signed Date and Time: 10/02/2021 1:35 am Signed by: JENS CHAVEZ DO, I Transcribed Date and Time: 10/02/2021 1:36 Normal [facility] Comp Panel with Mg Reflexon 10-02-2021 ALP [Catalytic activity/Vol] 83 U/L Normal 38-126 [facility] Comment on above: Performed By: #### P T #### [facility] [address] [place] [address] ALT [Catalytic activity/Vol] 22 U/L Normal 0-34 [facility] Comment on above: Result Comment: The ALT test is performed by an updated assay method. Please note that the reference intervals have been changed and are now sex specific. Performed By: #### P T #### [facility] [address] [place] [address] Calcium [Mass/Vol] 8.4 mg/dL Normal 8.4-10.4 [facility] Comment on above: Performed By: #### P T #### [facility] [address] [place] [address] Glucose [Mass/Vol] 124 mg/dL High 70-100 [facility] Comment on above: Performed By: #### P T #### [facility] [address] [place] [address] Urea nitrogen [Mass/Vol] 20 mg/dL Normal 9-20 [facility] Comment on above: Performed By: #### P T #### [facility] [address] [place] [address] Anion gap [Moles/Vol] 7 mmol/L Normal 3-13 [facility] Comment on above: Performed By: #### P T #### [facility] [address] [place] [address] AST [Catalytic activity/Vol] 40 U/L Normal 15-46 [facility] Comment on above: Performed By: #### P T #### [facility] [address] [place] [address] Bilirubin [Mass/Vol] 3.0 mg/dL High 0.2-1.3 [facility] Comment on above: Performed By: #### P T #### [facility] [address] [place] [address] CO2 [Moles/Vol] 22 mmol/L Normal 22-30 [facility] Comment on above: Performed By: #### P T #### [facility] [address] [place] [address] Creatinine [Mass/Vol] 0.61 mg/dL Normal 0.52-1.25 [facility] Comment on above: Performed By: #### P T #### [facility] [address] [place] [address] GFR/1.73 sq M.predicted among blacks MDRD (S/P/Bld) [Vol rate/Area] mL/min/{1.73_m2} Normal >60 [facility] Comment on above: Performed By: #### P T #### [facility] [address] [place] [address] GFR/1.73 sq M.predicted among non-blacks MDRD (S/P/Bld) [Vol rate/Area] 82.9 mL/min/{1.73_m2} Normal >60 [facility] Comment on above: Result Comment: KDIG O guidelines provide the following GFR categories: Stage GFR(ml/min/1.73 m2) Terms G1 >=90 Normal or high G2 60-89 Mildly decreased* G3a 45-59 Mildly to moderately decreased G3b 30-44 Moderately to severely decreased G4 15-29 Severely decreased G5 <15 Kidney failure *Relative to young adult level. In the absence of evidence of kidney damage, neither GFR category G1 nor G2 fulfill the criteria for CKD. The CKD-EPI equation is validated in individuals 18 years of age and older. Currently the best equation for estimating glomerular filtration rate (GFR) from serum creatinine in children is the Bedside Mckenzie equation. It is less accurate in patients with extremes of muscle mass, restriction of dietary protein, ingestion of creatine, extra-renal metabolism of creatinine, or treatment with medications that affect renal tubular creatinine secretion. Performed By: #### P T #### [facility] [address] [place] [address] Protein [Mass/Vol] 5.8 g/dL Low 6.3-8.2 [facility] Comment on above: Performed By: #### P T #### [facility] [address] [place] [address] Chloride [Moles/Vol] 101 mmol/L Normal 98-107 [facility] Comment on above: Performed By: #### P T #### [facility] [address] [place] [address] Potassium [Moles/Vol] 3.9 mmol/L Normal 3.5-5.1 [facility] Comment on above: Performed By: #### P T #### [facility] [address] [place] [address] Sodium [Moles/Vol] 130 mmol/L Low 135-145 [facility] Comment on above: Performed By: #### P T #### [facility] [address] [place] [address] Albumin [Mass/Vol] 3.5 g/dL Normal 3.5-5.0 [facility] Comment on above: Performed By: #### P T #### [facility] [address] [place] [address] Complete Urinalysison 2021 Appearance (U) Clear Normal Clear [facility] Comment on above: Result Comment: . Performed By: #### T SGL #### [facility] Bacteria Few Abnormal Negative [facility] Comment on above: Result Comment: . Performed By: #### T SGL #### [facility] Bilirubin,Urine Negative Normal Negative [facility] Comment on above: Result Comment: . Performed By: #### T SGL #### [facility] Cast, Hyaline 0 - 2 Abnormal Negative [facility] Comment on above: Result Comment: . Performed By: #### T SGL #### [facility] Color (U) Yellow Normal Lt. Yellow [facility] Comment on above: Result Comment: . Performed By: #### T SGL #### [facility] Glucose Ql (U) Normal Normal Normal (<70) [facility] Comment on above: Result Comment: . Performed By: #### T SGL #### [facility] Ketone,Urine 20 mg/dL Abnormal Negative [facility] Comment on above: Result Comment: . Performed By: #### T SGL #### [facility] Leukocytes,Urine 25 Jonnathan/uL Abnormal Negative [facility] Comment on above: Result Comment: . Performed By: #### T SGL #### [facility] Mucous Threads Few Normal Negative [facility] Comment on above: Result Comment: . Performed By: #### T SGL #### [facility] Nitrites,Urine Negative Normal Negative [facility] Comment on above: Result Comment: . Performed By: #### T SGL #### [facility] Non-Squamous Epithelial < 1 Abnormal Negative [facility] Comment on above: Result Comment: . Performed By: #### T SGL #### [facility] Occult Blood,Urine > 1.0 Abnormal Negative [facility] Comment on above: Result Comment: . Performed By: #### T SGL #### [facility] pH,Urine 5.0 Normal 5.0-8.0 [facility] Comment on above: Result Comment: . Performed By: #### T SGL #### [facility] Protein (U) [Mass/Vol] 30 mg/dL Abnormal Negative [facility] Comment on above: Result Comment: . Performed By: #### T SGL #### [facility] RBC LM.HPF (Urine sed) [#/Area] /[HPF] Abnormal 0-2 [facility] Comment on above: Result Comment: . Performed By: #### T SGL #### [facility] Specific [place],Urine 1.018 Normal 1.005 - 1.030 [facility] Comment on above: Result Comment: . Performed By: #### T SGL #### [facility] Squamous Epithelial 0 - 2 Normal 3-5 [facility] Comment on above: Result Comment: . Performed By: #### T SGL #### [facility] Urobilinogen,Urine 3 mg/dL Abnormal Normal (0-1) [facility] Comment on above: Result Comment: . Performed By: #### T SGL #### [facility] WBC, Urine 6 - 10 Abnormal 0-5 [facility] Comment on above: Result Comment: . Performed By: #### T SGL #### [facility] Comprehensive Metabolic Pane l w/ Reflex to MGon 10-02-2021 Albumin [Mass/Vol] 3.5 g/dL 3.5 - 5.0 g/dL [facility] ALP (Bld) [Catalytic activity/Vol] 83 U/L 38 - 126 U/L [facility] ALT [Catalytic activity/Vol] 22 U/L 0 - 34 U/L [facility] Comment on above: The ALT test is perf ormed by an updated assay method. Please note that the reference intervals have been changed and are now sex specific. Anion gap [Moles/Vol] 7 mmol/L 3 - 13 mmol/L [facility] AST [Catalytic activity/Vol] 40 U/L 15 - 46 U/L [facility] Bilirubin [Mass/Vol] 3.0 mg/dL High 0.2 - 1 .3 mg/dL [facility] Calcium [Mass/Vol] 8.4 mg/dL 8.4 - 10. 4 mg/dL [facility] Chloride [Moles/Vol] 101 mmol/L 98 - 10 7 mmol/L [facility] CO2 [Moles/Vol] 22 mmol/L 22 - 30 mmol/L [facility] Creatinine [Mass/Vol] 0.61 mg/dL 0.52 - 1.25 mg/dL [facility] EGFR IF NonAfrican Central African 82.9 mL/min >60 [facility] Comment on above: KDIGO guidelines pro vide the following GFR categories: Stage GFR(ml/min/1.73 m2) Terms G1 >=90 Normal or high G2 60-89 Mildly decreased* G3a 45-59 Mildly to moderately decreased G3b 30-44 Moderately to severely decreased G4 15-29 Severely decreased G5 <15 Kidney failure *Relative to young adult level. In the absence of evidence of kidney damage, neither GFR category G1 nor G2 fulfill the criteria for CKD. The CKD-EPI equation is validated in individuals 18 years of age and older. Currently the best equation for estimating glomerular filtration rate (GFR) from serum creatinine in children is the Bedside Mckenzie equation. It is less accurate in patients with extremes of muscle mass, restriction of dietary protein, ingestion of creatine, extra-renal metabolism of creatinine, or treatment with medications that affect renal tubular creatinine secretion. Free PSA/Total PSA [Mass fraction] 5.8 g/dL Low 6.3 - 8.2 g/dL [facility] GFR/1.73 sq M.predicted among blacks MDRD (S/P/Bld) [Vol rate/Area] mL/min/{1.73_m2} >60 mL/min [facility] Glucose [Mass/Vol] 124 mg/dL High 70 - 100 mg/dL [facility] Interpretation and review of laboratory results Abnormal [facility] Potassium [Moles/Vol] 3.9 mmol/L 3.5 - 5.1 mmol/L [facility] Sodium [Moles/Vol] 130 mmol/L Low 135 - 145 mmol/L [facility] Urea nitrogen (BldV) [Mass/Vol] 20 mg/dL 9 - 20 mg/dL [facility] Test Performed by [facility], [address], [place] [id number] [place] [address] LAB [facility] EKG 12 Leadon 10-02-2021 [facility] Test Date: 2021-10-01 Pat Name: ADORE MARINLEY Department: 2A1E Room: 146 Gender: F Patient Admitting Clerk: : 1935 Requested By: CHI BETTS Order Number: [id number] Reading : Aleksandra Segura Measurements Intervals Mcintyre Rate: 80 P: 41 IN: 144 QRS: -25 QRSD: 116 T: 43 QT: 416 QTc: 480 Interpretive Statements SINUS RHYTHM leftward axis Electronically Signed On 10-02-2021 9:02:07 EST by Aleksandra Segura [facility] Aleksandra Segura MD - 10/02/2021 [facility] Test Date: 2021-10-01 Pat Name: ADORE MARTA Department: 2A1E Room: 146 Gender: F Patient Admitting Clerk: : 1935 Requested By: CHI BETTS Order Number: [id number] Reading MD: Aleksandra Segura Measurements Intervals Mcintyre Rate: 80 P: 41 IN: 144 QRS: -25 QRSD: 116 T: 43 QT: 416 QTc: 480 Interpretive Statements SINUS RHYTHM leftward axis Electronically Signed On 10-02-2021 9:02:07 EST by Aleksandra WALLACE Work Phone: EKG 12 LeadOrdered By: Aleksandra simpson on 10-02-2021 [facility] Work Phone: Glucose,Bedsideon 10-02-2021 Glucose [Mass/Vol] 106 mg/dL High 70-100 [facility] Comment on above: Result Comment: Test performed by glucose meter. Results may be 10%-15% lower than serum/plasma values. (CLIA ID [id number]) Performed By: #### T SGL #### [facility] Glucose [Mass/Vol] 138 mg/dL High 70-100 [facility] Comment on above: Result Comment: Test performed by glucose meter. Results may be 10%-15% lower than serum/plasma values. (CLIA ID [id number]) Performed By: #### C VFLR #### [place] [address] [place] [address] , [address] Glucose [Mass/Vol] 122 mg/dL High 70-100 [facility] Comment on above: Result Comment: Test performed by glucose meter. Results may be 10%-15% lower than serum/plasma values. (CLIA ID [id number]) Performed By: #### P T #### [place] [address] [place] [address] Hemogram w/ Autodiffon 10-02 Abs Baso Cnt 0.0 10*3/uL Normal 0.0-0.2 [facility] Comment on above: Performed By: #### P T #### [facility] [address] [place] [address] Abs Neutrophile Cnt 10.8 10*3/uL High 1.8-7.0 [facility] Comment on above: Performed By: #### P T #### [place] [address] [place] [address] Basophils/100 WBC (Bld) 0.2 % Normal 0.0-2.0 [facility] Comment on above: Performed By: #### P T #### [place] [address] [place] [address] Eosinophils (Bld) [#/Vol] 0.0 10*3/uL Normal 0.0-0.5 [facility] Comment on above: Performed By: #### P T #### [place] [address] [place] [address] Eosinophils/100 WBC (Bld) 0.1 % Low 1.0-6.0 [facility] Comment on above: Performed By: #### P T #### [facility] [address] [place] [address] Erythrocyte distribution width (RBC) [Ratio] 13.9 % Normal 11.5-14.5 [facility] Comment on above: Performed By: #### P T #### [facility] [address] [place] [address] Granulocytes/100 WBC (Bld) 84.0 % High 40.0-80.0 [facility] Comment on above: Performed By: #### P T #### [facility] [address] [place] [address] Hematocrit (Bld) [Volume fraction] 24.3 % Low 35.0-47.0 [facility] Comment on above: Performed By: #### P T #### [facility] [address] [place] [address] Hemoglobin (Bld) [Mass/Vol] 8.1 g/dL Low 11.7-16.0 [facility] Comment on above: Performed By: #### P T #### [facility] [address] [place] [address] Lymphocytes (Bld) [#/Vol] 1.1 10*3/uL Normal 1.0-4.3 [facility] Comment on above: Performed By: #### P T #### [facility] [address] [place] [address] Lymphocytes/100 WBC (Bld) 8.3 % Low 20.0-40.0 [facility] Comment on above: Performed By: #### P T #### [facility] [address] [place] [address] MCH (RBC) [Entitic mass] 31.3 pg Normal 26.0-34.0 [facility] Comment on above: Performed By: #### P T #### [facility] [address] [place] [address] MCHC 33.3 % Normal 32.0-36.0 [facility] Comment on above: Performed By: #### P T #### [facility] [address] [place] [address] MCV (RBC) [Entitic vol] 93.8 fL Normal 79.0-98.0 [facility] Comment on above: Performed By: #### P T #### [facility] [address] [place] [address] Monocytes (Bld) [#/Vol] 0.9 10*3/uL High 0.0-0.8 [facility] Comment on above: Performed By: #### P T #### [facility] [address] [place] [address] Monocytes/100 WBC (Bld) 7.4 % Normal 2.0-10.0 [facility] Comment on above: Performed By: #### P T #### [facility] [address] [place] [address] Platelet mean volume (Bld) [Entitic vol] 7.6 fL Normal 7.4-10.4 [facility] Comment on above: Performed By: #### P T #### [facility] [address] [place] [address] Platelets (Bld) [#/Vol] 334 10*3/uL Normal 140-440 [facility] Comment on above: Performed By: #### P T #### [facility] [address] [place] [address] RBC (Bld) [#/Vol] 2.59 10*6/uL Low 3.80-5.20 [facility] Comment on above: Performed By: #### P T #### [facility] [address] [place] [address] WBC (Bld) [#/Vol] 12.8 10*3/uL High 3.6-10.7 [facility] Comment on above: Performed By: #### P T #### [facility] [address] [place] [address] Osmolality, Urineon 10-03-19 22 Osmolality, Ur 607 mosm/kg 300 - 1000 mosm/kg [facility] Test Performed by [facility], [address] [place] [address] [facility] Osmolality,Urineon 2 Osmolality,Urine 607 mosm/kg Normal 300-1000 [facility] Comment on above: Performed By: #### T SGL #### [facility] POCT Glucoseon 10-02-2021 Glucose [Mass/Vol] 106 mg/dL High 70 - 100 mg/dL [facility] Comment on above: Test performed by gl ucose meter. Results may be 10%-15% lower than serum/plasma values. (CLIA ID [id number]) Interpretation and review of laboratory results Abnormal [facility] Test Performed by [facility], [address] LAB [facility] Test Performed by [facility], [address] LAB Glucose [Mass/Vol] 122 mg/dL High 70 - 100 mg/dL [facility] Comment on above: Test performed by gl ucose meter. Results may be 10%-15% lower than serum/plasma values. (CLIA ID [id number]) Interpretation and review of laboratory results Abnormal [facility] Test Performed by [facility], [address] LAB [facility] POCT GlucoseOrdered By: Eva Fernandes on 10-02-2021 Glucose [Mass/Vol] 138 mg/dL High 70 - 100 mg/dL [facility] Comment on above: Test performed by gl ucose meter. Results may be 10%-15% lower than serum/plasma values. (CLIA ID [id number]) Interpretation and review of laboratory results Abnormal [facility] SODIUM, URINE, RANDOMon Sodium (U) [Moles/Vol] 86 mmol/L 30 - 90 mmol/L [facility] Test Performed by [facility], [address] LAB [facility] Sodium, Ur Randomon 10-03-19 22 Sodium [Moles/Vol] 86 mmol/L Normal 30-90 [facility] Comment on above: Performed By: #### T SGL #### [facility] Urinalysison 10-02-2021 Appearance (U) Clear Clear NA [facility] Comment on above: . Bacteria, UA Few Abnormal Negative /[HPF] [facility] Comment on above: . Bilirubin Urine Negative Negative mg/dL [facility] Comment on above: . Color (U) Yellow Lt. Yellow NA [facility] Comment on above: . Glucose, Ur Normal Normal (<70) mg/dL [facility] Comment on above: . Hyaline Casts, UA 0-2 Abnormal Negative /[LPF] [facility] Comment on above: . Interpretation and review of laboratory results Abnormal [facility] Ketones Ql (U) 20 mg/dL Abnormal Negative [facility] Comment on above: . LEUKOCYTES, UA 25 Abnormal Negative Jonnathan/uL [facility] Comment on above: . Mucous Threads Few Negative /[LPF] [facility] Comment on above: . Nitrite, Urine Negative Negative NA [facility] Comment on above: . Non-Squamous Epithelial <1 Abnormal Nega tive /[HPF] [facility] Comment on above: . Occult Blood,Urine >1.0 Abnormal Negative mg/dL [facility] Comment on above: . pH (U) 5.0 [pH] [facility] Comment on above: . Protein (U) [Mass/Vol] 30 mg/dL Abnormal Negative [facility] Comment on above: . RBC (U) [#/Vol] /uL Abnormal 0 - 2 /[HPF] [facility] Comment on above: . Specific [place], Urine 1.018 [facility] Comment on above: . Squam Epithel, UA 0-2 3 - 5 /[HPF] [facility] Comment on above: . Urobilinogen, Urine 3 mg/dL Abnormal Normal (0-1) [facility] Comment on above: . WBC, UA 6-10 Abnormal 0 - 5 /[HPF] [facility] Comment on above: . Test Performed by [facility], [address] [place], [place] [address] [facility] LAB [facility] Basic Metabolic Panelon 03-0 -2021 Calcium [Mass/Vol] 9.0 mg/dL Normal 8.4-10.4 [facility] Comment on above: Performed By: #### P T #### [facility] [address] [place] [address] Anion gap [Moles/Vol] 7 mmol/L Normal 3-13 [facility] Comment on above: Performed By: #### P T #### [facility] [address] [place] [address] CO2 [Moles/Vol] 25 mmol/L Normal 22-30 [facility] Comment on above: Performed By: #### P T #### [facility] [address] [place] [address] Creatinine [Mass/Vol] 0.57 mg/dL Normal 0.52-1.25 [facility] Comment on above: Performed By: #### P T #### [facility] [address] [place] [address] GFR/1.73 sq M.predicted among blacks MDRD (S/P/Bld) [Vol rate/Area] mL/min/{1.73_m2} Normal >60 [facility] Comment on above: Performed By: #### P T #### [facility] [address] [place] [address] GFR/1.73 sq M.predicted among non-blacks MDRD (S/P/Bld) [Vol rate/Area] 84.7 mL/min/{1.73_m2} Normal >60 [facility] Comment on above: Result Comment: KDIG O guidelines provide the following GFR categories: Stage GFR(ml/min/1.73 m2) Terms G1 >=90 Normal or high G2 60-89 Mildly decreased* G3a 45-59 Mildly to moderately decreased G3b 30-44 Moderately to severely decreased G4 15-29 Severely decreased G5 <15 Kidney failure *Relative to young adult level. In the absence of evidence of kidney damage, neither GFR category G1 nor G2 fulfill the criteria for CKD. The CKD-EPI equation is validated in individuals 18 years of age and older. Currently the best equation for estimating glomerular filtration rate (GFR) from serum creatinine in children is the Bedside Mckenzie equation. It is less accurate in patients with extremes of muscle mass, restriction of dietary protein, ingestion of creatine, extra-renal metabolism of creatinine, or treatment with medications that affect renal tubular creatinine secretion. Performed By: #### P T #### [facility] [address] [place] [address] Glucose [Mass/Vol] 130 mg/dL High 70-100 [facility] Comment on above: Performed By: #### P T #### [facility] [address] [place] [address] Urea nitrogen [Mass/Vol] 19 mg/dL Normal 9-20 [facility] Comment on above: Performed By: #### P T #### [facility] [address] [place] [address] Chloride [Moles/Vol] 98 mmol/L Normal 98-107 [facility] Comment on above: Performed By: #### P T #### [facility] [address] [place] [address] Potassium [Moles/Vol] 4.2 mmol/L Normal 3.5-5.1 [facility] Comment on above: Performed By: #### P T #### [facility] [address] [place] [address] Sodium [Moles/Vol] 131 mmol/L Low 135-145 [facility] Comment on above: Performed By: #### P T #### [facility] [address] [place] [address] Anion gap [Moles/Vol] 7 mmol/L 3 - 13 mmol/L [facility] Calcium [Mass/Vol] 9.0 mg/dL 8.4 - 10. 4 mg/dL [facility] Chloride [Moles/Vol] 98 mmol/L 98 - 10 7 mmol/L [facility] CO2 [Moles/Vol] 25 mmol/L 22 - 30 mmol/L [facility] Creatinine [Mass/Vol] 0.57 mg/dL 0.52 - 1.25 mg/dL [facility] EGFR IF NonAfrican Central African 84.7 mL/min >60 [facility] Comment on above: KDIGO guidelines pro vide the following GFR categories: Stage GFR(ml/min/1.73 m2) Terms G1 >=90 Normal or high G2 60-89 Mildly decreased* G3a 45-59 Mildly to moderately decreased G3b 30-44 Moderately to severely decreased G4 15-29 Severely decreased G5 <15 Kidney failure *Relative to young adult level. In the absence of evidence of kidney damage, neither GFR category G1 nor G2 fulfill the criteria for CKD. The CKD-EPI equation is validated in individuals 18 years of age and older. Currently the best equation for estimating glomerular filtration rate (GFR) from serum creatinine in children is the Bedside Mckenzie equation. It is less accurate in patients with extremes of muscle mass, restriction of dietary protein, ingestion of creatine, extra-renal metabolism of creatinine, or treatment with medications that affect renal tubular creatinine secretion. GFR/1.73 sq M.predicted among blacks MDRD (S/P/Bld) [Vol rate/Area] mL/min/{1.73_m2} >60 mL/min [facility] Glucose [Mass/Vol] 130 mg/dL High 70 - 100 mg/dL [facility] Interpretation and review of laboratory results Abnormal [facility] Potassium [Moles/Vol] 4.2 mmol/L 3.5 - 5.1 mmol/L [facility] Sodium [Moles/Vol] 131 mmol/L Low 135 - 145 mmol/L [facility] Urea nitrogen (BldV) [Mass/Vol] 19 mg/dL 9 - 20 mg/dL [facility] Test Performed by [facility], [address] LAB [facility] CBC with Auto Differentialon 10-01-2021 Absolute Baso # 0.0 10*3/uL 0.0 - 0.2 10*3/uL [facility] Absolute Neut # 9.8 10*3/uL High 1.8 - 7.0 10*3/uL [facility] Basophils/100 WBC (Bld) 0.3 % 0.0 - 2.0 % [facility] Eosinophils (Bld) [#/Vol] 0.0 10*3/uL 0.0 - 0.5 10*3/uL [facility] Eosinophils/100 WBC (Bld) 0.3 % Low 1.0 - 6.0 % [facility] Granulocytes/100 WBC (Bld) 84.8 % High 40.0 - 80.0 % [facility] Hematocrit (Bld) [Volume fraction] 27.8 % Low 35.0 - 47.0 % [facility] Hemoglobin.gastrointesti nal spec 1 Ql (Stl) 9.3 g/dL Low 11.7 - 16.0 g/dL [facility] Interpretation and review of laboratory results Abnormal [facility] Lymphocytes (Bld) [#/Vol] 0.9 10*3/uL Low 1.0 - 4.3 10*3/uL [facility] Lymphocytes/100 WBC (Bld) 7.4 % Low 20.0 - 40.0 % [facility] MCH (RBC) [Entitic mass] 31.6 pg 26. 0 - 34.0 pg [facility] MCHC (RBC) [Mass/Vol] 33.5 % 32.0 - 36.0 % [facility] MCV (RBC) [Entitic vol] 94.5 fL 79.0 - 98.0 fL [facility] Monocytes (Bld) [#/Vol] 0.8 10*3/uL 0.0 - 0.8 10*3/uL [facility] Monocytes/100 WBC (Bld) 7.2 % 2.0 - 10.0 % [facility] Platelet distribution width (Bld) [Ratio] 13.8 % 11.5 - 14.5 % [facility] Platelet mean volume (Bld) [Entitic vol] 7.6 fL 7.4 - 10.4 fL [facility] Platelets (Bld) [#/Vol] 328 10*3/uL 140 - 440 10*3/uL [facility] RBC (Bld) [#/Vol] 2.94 10*6/uL Low 3.80 - 5.2 0 10*6/uL [facility] WBC (Bld) [#/Vol] 11.5 10*3/uL High 3.6 - 10.7 10*3/uL [facility] Test Performed by [facility], [address] LAB [facility] COVID-[facility], Flu A/B, and RSV C omboon 10-01-2021 Influenza A by PCR Not detected [facility] Influenza B by PCR Not detected [facility] RSV PCR Not Detected. Expected Result: Not Detected _ Method: Real-time, RT-PCR This assay was developed by [employer] and distributed under an Emergency Use Authorization (EUA) granted by the FDA for the qualitative detection of nucleic acids from SARS-CoV-2, Influenza A, Influenza B, and Respiratory Syncytial Virus. Provider and patient fact sheets can be found at https://www.fda.gov/wi lonnie/318945/download and https://www.fda.gov/wi lonnie/831585/download. [facility] SARS-CoV-2 (COVID-19) RNA MARVIN+probe Ql (Unsp spec) Not detected [facility] Test Performed by [facility], [address] LAB [facility] CR Chest 1 View Frontalon CR Chest 1 View Frontal Patient Name: ADORE GIRALDO Diagnostic Radiology ACCESSION EXAM DATE/TIME PROCEDURE ORDERING PROVIDER [id number] 10/01/2021 06:26 EST CR Chest 1 View Frontal MD FLOOD GREGORY M CPT code 10977 Reason For Exam (CR Chest 1 View Frontal) Fall right femur fracture suspected Report PORTABLE CHEST CLINICAL INDICATION: Fall. Left chest pain. COMPARISON: 09/27/2021 rib series is used for comparison. TECHNIQUE: A single frontal view of thorax was obtained and reviewed. IMPRESSION: 1. Lines/ tubes/ devices: None. 2. Lungs and Pleura: No infiltrate or mass. No pneumothorax or pleural effusion. 3. Heart and mediastinum: Normal cardiomediastinal margin. Thoracic aortic arch atherosclerosis. 4. Bones: Degenerative changes of shoulders and spine. Report Dictated on Final Dictating Physician: JENS CHAVEZ DO, I Signed Date and Time: 10/01/2021 6:25 am Signed by: JENS CHAVEZ DO, I Transcribed Date and Time: 10/01/2021 6:26 Normal [facility] CR Femur 2+ Views Lefton CR Femur 2+ Views Left Patient Name: ADORE DIAZ Diagnostic Radiology ACCESSION EXAM DATE/TIME PROCEDURE ORDERING PROVIDER [id number] 10/01/2021 12:58 EST CR Femur 2+ Views Left n [id number] REYNA CPT code 12499 Reason For Exam (CR Femur 2+ Views Left n) s/p femur ORIF Report Examination: CR Femur 2+ Views Left Clinical: s/p femur ORIF Comparison: 09/25/2021 Findings: AP and crossfire lateral views of the left femur. Osteopenia. There is periprosthetic fracture distal femoral diaphysis which is mildly displaced, unchanged in alignment. Left total hip arthroplasty. Acetabular component transfixed with two acetabular screws. Cemented femoral component. Large lateral sided plate and screw fixation of the femur unchanged. Cutaneous sergio lateral to the hip. Extensive atherosclerotic calcification throughout the femoral artery of the thigh. Left total knee arthroplasty in good alignment. Small soft tissue calcifications peripheral to the greater trochanter. Subcutaneous edema slightly worsened lateral hip and thigh. Impression: Slightly worsening subcutaneous edema. Unchanged alignment left femur status post ORIF with total hip and total knee arthroplasty. No gross evidence of new hardware failure. Report Dictated on Final Dictating Physician: MD VAZQUEZ ANTHONY J Signed Date and Time: 10/01/2021 1:50 pm Signed by: MD VAZQUEZ ANTHONY J Transcribed Date and Time: 10/01/2021 1:52 Normal [facility] CR Femur 2+ Views Righton CR Femur 2+ Views Right Patient Name: ADORE GIRALDO Diagnostic Radiology ACCESSION EXAM DATE/TIME PROCEDURE ORDERING PROVIDER [id number] 10/01/2021 06:27 EST CR Femur 2+ Views Right MD JUSTIN, ROSETTE dockery CPT code 65155 Reason For Exam (CR Femur 2+ Views Right n) Fall right femur pain Report RIGHT FEMUR CLINICAL INDICATION: Right leg pain. TECHNIQUE: AP and lateral COMPARISON: None. FINDINGS: There is no evidence of a fracture. Marked narrowing of the right hip joint. Right femur intramedullary roman with femoral neck screw is intact. No loosening. Right knee arthroplasty is intact. Medial to the knee arthroplasty is curvilinear soft tissue calcification of uncertain significance. No other bony or soft tissue abnormality is identified. Have a right SFA atherosclerotic aspirations. IMPRESSION: No acute traumatic osseous abnormality. Moderate right hip osteoarthritis. Hip and knee hardware is intact without loosening. Peripheral atherosclerotic calcifications Report Dictated on Final Dictating Physician: JENS CHAVEZ DO, I Signed Date and Time: 10/01/2021 6:27 am Signed by: JENS CHAVEZ DO, I Transcribed Date and Time: 10/01/2021 6:28 Normal [facility] CR Hip w/ Pelvis 2 or 3 View s Righton 10-01-2021 CR Hip w/ Pelvis 2 or 3 Views Right Patient Name: ADORE WALTER Diagnostic Radiology ACCESSION EXAM DATE/TIME PROCEDURE ORDERING PROVIDER [id number] 10/01/2021 06:27 EST CR Hip w/ Pelvis 2 or 3 MD FLOOD GREGORY M Views Right n CPT code 63533 Reason For Exam (CR Hip w/ Pelvis 2 or 3 Views Right n) Fall right hip pain Report RIGHT HIP: CLINICAL INDICATION: Fall. Right hip pain. TECHNIQUE: AP Pelvis, AP and frog leg lateral views of the right hip were obtained. COMPARISON: Correlation is made with left hip radiograph dated 09/24/2021. FINDINGS: There is marked axial narrowing of the right hip joint space. Inferior acetabulum osteophyte is identified. Right femoral roman with femoral neck screw is intact. No loosening or hardware failure. No acute fracture or dislocation. Normal bone mineral density is evident. Bilateral SI joints and pubic symphysis are maintained. Heavy bilateral superficial femoral atherosclerotic calcifications. Left hip arthroplasty is intact and aligned. No other bony or soft tissue abnormality is identified. IMPRESSION: No acute right hip fracture or dislocation. Moderate right hip osteoarthritis Intact bilateral hip hardware without loosening. Bilateral SFA peripheral arterial atherosclerosis. Report Dictated on Final Dictating Physician: JENS CHAVEZ DO, I Signed Date and Time: 10/01/2021 6:24 am Signed by: JENS CHAVEZ DO, I Transcribed Date and Time: 10/01/2021 6:27 Normal [facility] CR Knee 1 or 2 Views Righton 10-01-2021 CR Knee 1 or 2 Views Right [facility]: [id number]iology ACCESSION EXAM DATE/TIME PROCEDURE ORDERING PROVIDER [id number] 10/01/2021 06:27 EST CR Knee 1 or 2 Views MD FLOOD GREGORY M Right CPT code 80524 Reason For Exam (CR Knee 1 or 2 Views Right) Fall abnormal femur x-ray, right leg knee pain Report RIGHT KNEE: CLINICAL INDICATION: Right knee pain. TECHNIQUE: AP and lateral views of right knee. COMPARISON: None. FINDINGS: There is no evidence for fracture or subluxation. Curvilinear soft tissue density is noted medial to the medial prosthesis, and may represent avulsion fracture. No loosening or hardware failure. No bone lesion is noted. Small suprapatellar joint effusion is seen. No soft tissue abnormality is identified. IMPRESSION: Small joint effusion. Curvilinear soft tissue density is of uncertain significance and may represent avulsion fracture. No hardware loosening. Oblique views of the right knee may be helpful for further assessment. Report Dictated on Final Dictating Physician: JENS CHAVEZ DO, I Signed Date and Time: 10/01/2021 6:30 am Signed by: JENS CHAVEZ DO, I Transcribed Date and Time: 10/01/2021 6:31 Normal [facility] CR Knee Complete 4+ Views Ri kristal 10-01-2021 CR Knee Complete 4+ Views Right Patient Name: ADORE WALTER Diagnostic Radiology ACCESSION EXAM DATE/TIME PROCEDURE ORDERING PROVIDER [id number] 10/01/2021 13:01 EST CR Knee Complete 4+ [id number] -JOSE G NOHEMI Views Right CPT code 77963 Reason For Exam (CR Knee Complete 4+ Views Right) R knee pain, concern for non displaced periprosthetic distal femur fracture Report Examination: CR Knee Complete 4+ Views Right Clinical: R knee pain, concern for non displaced periprosthetic distal femur fracture Comparison: 10/01/2021 at 05 25 Findings: Internal and external rotation AP and crossfire lateral views of the right knee. Osteopenia. There is periprosthetic fracture seen along the lateral femoral condyle. Minimal bone fixation laterally. There is knee joint effusion with lipohemarthrosis. Prior resurfacing of the patella. Intramedullary roman fixation of the proximal femur incompletely evaluated. Overlying bracing material in place. Atherosclerotic calcification femoral artery. Impression: Periprosthetic distal femoral fracture along the lateral femoral condyle unchanged in alignment. Osteopenia. Knee joint effusion/lipohemarthro sis. Report Dictated on Final Dictating Physician: MD VAZQUEZ ANTHONY J Signed Date and Time: 10/01/2021 1:53 pm Signed by: MD VAZQUEZ ANTHONY J Transcribed Date and Time: 10/01/2021 1:54 Normal [facility] CT Head WO Contraston 2021 Patient Name: ADORE WALTER Computed Tomography ACCESSION EXAM DATE/TIME PROCEDURE ORDERING PROVIDER [id number] 10/01/2021 06:[address] Head or Brain w/o MD FLOOD GREGORY M Contrast CPT code 62585 Reason For Exam (CT Head or Brain w/o Contrast) Fall on Eliquis Report CT HEAD WITHOUT CONTRAST: CLINICAL INDICATION: Fall. On blood thinner. COMPARISON: 05/04/2019. TECHNIQUE: [address] images through the brain. Sagittal and coronal reformatted images provided. FINDINGS: Ventricles and extra-axial spaces: Mild prominence of cerebral ventricles, cisterns and sulci for age, compatible with mild cerebral atrophy. No extra-axial fluid collection. Cerebral and cerebellar parenchyma: Scattered nonspecific foci of low density in periventricular and subcortical white matter for age, compatible with chronic small vessel disease.. No mass, mass effect or acute cortical infarct. No intracranial hemorrhage or brainstem abnormality. Visualized paranasal sinuses: normal. Mastoid air cells: Normal. Visualized orbits: Normal. Calvarium and skull base: Normal. Other: None. IMPRESSION: No acute intracranial process. Cerebral atrophy and chronic small vessel ischemic disease. Computed Tomography Report Report Dictated on --- Final --- Dictating Physician: JENS CHAVEZ DO, I Signed Date and Time: 10/01/2021 6:34 am Signed by: JENS CHAVEZ DO, I Transcribed Date and Time: 10/01/2021 6:35 [facility] Jens Chavez DO - 10/01/2021 Patient Name: ADORE WALTER Computed Tomography ACCESSION EXAM DATE/TIME PROCEDURE ORDERING PROVIDER [id number] 10/01/2021 06:[address] Head or Brain w/o MD JUSTIN, ROSETTE Pacheco Contrast CPT code 53743 Reason For Exam (CT Head or Brain w/o Contrast) Fall on Eliquis Report CT HEAD WITHOUT CONTRAST: CLINICAL INDICATION: Fall. On blood thinner. COMPARISON: 05/04/2019. TECHNIQUE: [address] images through the brain. Sagittal and coronal reformatted images provided. FINDINGS: Ventricles and extra-axial spaces: Mild prominence of cerebral ventricles, cisterns and sulci for age, compatible with mild cerebral atrophy. No extra-axial fluid collection. Cerebral and cerebellar parenchyma: Scattered nonspecific foci of low density in periventricular and subcortical white matter for age, compatible with chronic small vessel disease.. No mass, mass effect or acute cortical infarct. No intracranial hemorrhage or brainstem abnormality. Visualized paranasal sinuses: normal. Mastoid air cells: Normal. Visualized orbits: Normal. Calvarium and skull base: Normal. Other: None. IMPRESSION: No acute intracranial process. Cerebral atrophy and chronic small vessel ischemic disease. Computed Tomography Report Report Dictated on --- Final --- Dictating Physician: JENS CHAVEZ DO, I Signed Date and Time: 10/01/2021 6:34 am Signed by: JENS CHAVEZ DO, I Transcribed Date and Time: 10/01/2021 6:35 [facility] Work Phone: CT Head WO ContrastOrdered B y: Jens Chavez on 10-01-2021 [facility] Work Phone: CT Head or Brain w/o Contras ton 10-01-2021 CT Head or Brain w/o Contrast Patient Name: ADORE WALTER Computed Tomography ACCESSION EXAM DATE/TIME PROCEDURE ORDERING PROVIDER [id number] 10/01/2021 06:[address] Head or Brain w/o MD JUSTIN, ROSETTE Pacheco Contrast CPT code 80413 Reason For Exam (CT Head or Brain w/o Contrast) Fall on Eliquis Report CT HEAD WITHOUT CONTRAST: CLINICAL INDICATION: Fall. On blood thinner. COMPARISON: 05/04/2019. TECHNIQUE: [address] images through the brain. Sagittal and coronal reformatted images provided. FINDINGS: Ventricles and extra-axial spaces: Mild prominence of cerebral ventricles, cisterns and sulci for age, compatible with mild cerebral atrophy. No extra-axial fluid collection. Cerebral and cerebellar parenchyma: Scattered nonspecific foci of low density in periventricular and subcortical white matter for age, compatible with chronic small vessel disease.. No mass, mass effect or acute cortical infarct. No intracranial hemorrhage or brainstem abnormality. Visualized paranasal sinuses: normal. Mastoid air cells: Normal. Visualized orbits: Normal. Calvarium and skull base: Normal. Other: None. IMPRESSION: No acute intracranial process. Cerebral atrophy and chronic small vessel ischemic disease. Computed Tomography Report Report Dictated on Final Dictating Physician: JENS CHAVEZ DO, I Signed Date and Time: 10/01/2021 6:34 am Signed by: JENS CHAVEZ DO, I Transcribed Date and Time: 10/01/2021 6:35 Normal [facility] CT LOWER EXTREMITY RIGHT WO CONTRASTon 10-01-2021 Radiology Study observation (narrative) [facility] Work Phone: ED Provider Noteon ED Provider Note [facility] ED EMERGENCY DEPARTMENT ENCOUNTER Pt Name: Adore Walter Birthdate 1935 Date of evaluation: 10/01/2021 Provider: Rosette Flood MD CHIEF COMPLAINT Chief Complaint Patient presents with ? Fall ? Leg Pain HISTORY OF PRESENT ILLNESS (Location/Symptom, Timing/Onset,Context/S etting, Quality, Duration, Modifying Factors, Severity) Note limiting factors. Adore Walter is a 86 y.o. female who presents to the emergency department with fall. Slipped out of bed at rehab facility. She was in there because she had a fracture of her left periprostatic femur. Now she has pain and shortening the right leg. She has had hip and knee replacement there also. Seen [facility]. She is on Xarelto but denies hit her head. She fell out of bed. She remembers falling. She denies chest pain or abdominal pain or shortness of breath. HPI Nurse's notes for past medical history, surgical history, social history were reviewed. Medications and allergies reviewed. REVIEW OF SYSTEMS (2-9 systems for level 4, 10 or more for level 5) Review of Systems Total of 10 systems reviewed, please see pertinent positives, pertinent negatives above in HPI. PAST MEDICAL HISTORY Past Medical History: Diagnosis Date ? Chronic airway obstruction, not elsewhere classified ? Essential hypertension 12/14/2020 ? Hx of blood clots lower extremity- over 50 yrs ago ? Hydronephrosis BOTH KIDNEYS AND SCHEDULED FOR THE PROCEDURE / SURGERY ON 01/03/2019 ? Hyperlipidemia ? Osteoarthrosis, unspecified whether generalized or localized, unspecified site ? Osteoporosis, unspecified ? Skin cancer skin- L&R arms,face, bilat legs, back SURGICALHISTORY Past Surgical History: Procedure Laterality Date ? APPENDECTOMY ? BLADDER SUSPENSION LONG TIME AGO AT [facility] ? COLONOSCOPY ? EYE SURGERY Bilateral cataracts ? FEMUR FRACTURE SURGERY Left 09/25/2021 [facility] ? FRACTURE SURGERY Right right hip ORIF ? HYSTERECTOMY JAZMYNE with BSO ? JOINT REPLACEMENT bilateral knees IN [facility] ? JOINT REPLACEMENT Left Left hip AT [facility] ? LARYNGOSCOPY 04/18. benign polyp ? MICROLARYNGOSCOPY W BIOPSY 08/31/2019 with excision lesion vocal cord DR VARGAS ? OTHER SURGICAL HISTORY 06/11/2021 Excision Left Leg Lesion with Intermediate Closure, Excision Left Neck Lesion with Intermediate Closure. Dr [place] ? SKIN BIOPSY ? TONSILLECTOMY CURRENT MEDICATIONS Previous Medications ACETAMINOPHEN (TYLENOL) 500 MG TABLET Take 500 mg by mouth every 6 hours as needed for Pain ALENDRONATE (FOSAMAX) 70 MG TABLET Take 1 tablet by mouth every 7 days BISACODYL (DULCOLAX) [address] 1 suppository rectally daily as needed for Constipation (2nd line or patient preference) CARVEDILOL (COREG) 12.5 MG TABLET Take 1 tablet by mouth daily DOCUSATE SODIUM (COLACE) 100 MG CAPSULE Take 1 capsule by mouth 2 times daily ENOXAPARIN (LOVENOX) 40 MG/0.4ML INJECTION Inject 0.4 mLs into the skin daily for 21 days HANDICAP PLACARD MISC 1 each by Does not apply route daily LIDOCAINE 4 % EXTERNAL PATCH Place 1 patch onto the skin daily LISINOPRIL (PRINIVIL;ZESTRIL) 5 MG TABLET Take 1 tablet by mouth daily ONDANSETRON (ZOFRAN-ODT) 4 MG DISINTEGRATING TABLET Take 1 tablet by mouth every 8 hours as needed for Nausea or Vomiting OXYCODONE (ROXICODONE) 5 MG IMMEDIATE RELEASE TABLET Take 1-2 tablets by mouth every 4 hours as needed for Pain for up to 3 days. POLYETHYLENE GLYCOL (GLYCOLAX) 17 G PACKET Take 17 g by mouth daily SIMVASTATIN (ZOCOR) 10 MG TABLET Take 1 tablet by mouth nightly Patient has no known allergies. FAMILY HISTORY Family History Problem Relation Age of Onset ? Cancer Father skin cancer SOCIAL HISTORY Social History Socioeconomic History ? Marital status: Spouse name: None ? Number of children: None ? Years of education: None ? Highest education level: None Occupational History ? Occupation: retired Tobacco Use ? Smoking status: Former Smoker Packs/day: 0.50 Years: 35.00 Pack years: 17.50 Types: Cigarettes Start date: 1956 Quit date: 1991 Years since quittin.1 ? Smokeless tobacco: Never Used Vaping Use ? Vaping Use: Never used Substance and Sexual Activity ? Alcohol use: Yes Alcohol/week: 0.0 standard drinks Comment: occ baileys ? Drug use: Never Comment: Caffeine use: up to 4 cups of coffee per day ? Sexual activity: None Other Topics Concern ? None Social History Narrative ? None Social Determinants of Health Financial Resource Strain: Low Risk ? Difficulty of Paying Living Expenses: Not hard at all Food Insecurity: No Food Insecurity ? Worried About Running Out of Food in the Last Year: Never true ? Ran Out of Food in the Last Year: Never true Transportation Needs: ? Lack of Transportation (Medical): Not on file ? Lack of Transportation (Non-Medical): Not on file Physical Acti (more content not included)... Normal [facility] Hemogram w/ Autodiffon 10-01 Abs Baso Cnt 0.0 10*3/uL Normal 0.0-0.2 [facility] Comment on above: Performed By: #### P T #### [facility] [address] [place] [address] Abs Neutrophile Cnt 9.8 10*3/uL High 1.8-7.0 [facility] Comment on above: Performed By: #### P T #### [facility] [address] [place] [address] Basophils/100 WBC (Bld) 0.3 % Normal 0.0-2.0 [facility] Comment on above: Performed By: #### P T #### [facility] [address] [place] [address] Eosinophils (Bld) [#/Vol] 0.0 10*3/uL Normal 0.0-0.5 [facility] Comment on above: Performed By: #### P T #### [facility] [address] [place] [address] Eosinophils/100 WBC (Bld) 0.3 % Low 1.0-6.0 [facility] Comment on above: Performed By: #### P T #### [facility] [address] [place] [address] Erythrocyte distribution width (RBC) [Ratio] 13.8 % Normal 11.5-14.5 [facility] Comment on above: Performed By: #### P T #### [facility] [address] [place] [address] Granulocytes/100 WBC (Bld) 84.8 % High 40.0-80.0 [facility] Comment on above: Performed By: #### P T #### [facility] [address] [place] [address] Hematocrit (Bld) [Volume fraction] 27.8 % Low 35.0-47.0 [facility] Comment on above: Performed By: #### P T #### [facility] [address] [place] [address] Hemoglobin (Bld) [Mass/Vol] 9.3 g/dL Low 11.7-16.0 [facility] Comment on above: Performed By: #### P T #### [facility] [address] [place] [address] Lymphocytes (Bld) [#/Vol] 0.9 10*3/uL Low 1.0-4.3 [facility] Comment on above: Performed By: #### P T #### [facility] [address] [place] [address] Lymphocytes/100 WBC (Bld) 7.4 % Low 20.0-40.0 [facility] Comment on above: Performed By: #### P T #### [facility] [address] [place] [address] MCH (RBC) [Entitic mass] 31.6 pg Normal 26.0-34.0 [facility] Comment on above: Performed By: #### P T #### [facility] [address] [place] [address] MCHC 33.5 % Normal 32.0-36.0 [facility] Comment on above: Performed By: #### P T #### [facility] [address] [place] [address] MCV (RBC) [Entitic vol] 94.5 fL Normal 79.0-98.0 [facility] Comment on above: Performed By: #### P T #### [facility] [address] [place] [address] Monocytes (Bld) [#/Vol] 0.8 10*3/uL Normal 0.0-0.8 [facility] Comment on above: Performed By: #### P T #### [facility] [address] [place] [address] Monocytes/100 WBC (Bld) 7.2 % Normal 2.0-10.0 [facility] Comment on above: Performed By: #### P T #### [facility] [address] [place] [address] Platelet mean volume (Bld) [Entitic vol] 7.6 fL Normal 7.4-10.4 [facility] Comment on above: Performed By: #### P T #### [facility] [address] [place] [address] Platelets (Bld) [#/Vol] 328 10*3/uL Normal 140-440 [facility] Comment on above: Performed By: #### P T #### [facility] [address] [place] [address] RBC (Bld) [#/Vol] 2.94 10*6/uL Low 3.80-5.20 [facility] Comment on above: Performed By: #### P T #### [facility] [address] [place] [address] WBC (Bld) [#/Vol] 11.5 10*3/uL High 3.6-10.7 [facility] Comment on above: Performed By: #### P T #### [facility] [address] [place] [address] No Panel Informationon 10-01 Radiology Study observation (narrative) [facility] Work Phone: Prothrombin Timeon 2 INR 1.1 Normal 0.9-1.1 [facility] Comment on above: Result Comment: Brett mmended Anticoagulant Therapy: SEE BELOW ----- INR of 2.0 - 3.0 : - Prophylaxis of Venous Thrombosis (high-risk surgery) - Treatment of Venous Thrombosis - Treatment of Pulmonary Embolism (Includes tissue heart valves, Acute Myocardial Infarction to prevent systemic embolism, Valvular Heart Disease, and Atrial Fibrillation) ----- INR of 2.5 - 3.5 : - Mechanical Prosthetic Valves (high risk) - If oral anticoagulant therapy is used to prevent Myocardial Infarction Performed By: #### P T #### [facility] [address] [place] [address] PT Coag (PPP) [Time] 11.5 s Normal 9.0-12.0 [facility] Comment on above: Result Comment: . Performed By: #### P T #### [facility] [address] [place] [address] Protime-INRon 10-01-2021 INR Coag (Bld) [Relative time] 1.1 {INR} [facility] Comment on above: Recommended Anticoag ulant Therapy: SEE BELOW ----- INR of 2.0 - 3.0 : - Prophylaxis of Venous Thrombosis (high-risk surgery) - Treatment of Venous Thrombosis - Treatment of Pulmonary Embolism (Includes tissue heart valves, Acute Myocardial Infarction to prevent systemic embolism, Valvular Heart Disease, and Atrial Fibrillation) ----- INR of 2.5 - 3.5 : - Mechanical Prosthetic Valves (high risk) - If oral anticoagulant therapy is used to prevent Myocardial Infarction PT Coag (PPP) [Time] 11.5 s 9.0 - 1 2.0 s [facility] Comment on above: . Test Performed by [facility], [address] [place], [place] [address] [facility] SARS-CoV-2, Flu A/B and RSVo n 10-01-2021 SARS-CoV-2 (COVID-19) RNA MARVIN+probe Ql (Unsp spec) SARS-CoV-2 --> Status: F Not Detected. Flu A PCR --> Status: F Not Detected. Flu B PCR --> Status: F Not Detected. RSV PCR --> Status: F Not Detected. Expected Result: Not Detected _ Method: Real-time, RT-PCR This assay was developed by [employer] and distributed under an Emergency Use Authorization (EUA) granted by the [facility] for the qualitative detection of nucleic acids from SARS-CoV-2, Influenza A, Influenza B, and Respiratory Syncytial Virus. Provider and patient fact sheets can be found at [email or web address].[facility]/wi lonnie/675604/download and https://www.[facility]/wi lonnie/160265/download. Expected Result: Not Detected _ Method: Real-time, RT-PCR This assay was developed by [employer] and distributed under an Emergency Use Authorization (EUA) granted by the [facility] for the qualitative detection of nucleic acids from SARS-CoV-2, Influenza A, Influenza B, and Respiratory Syncytial Virus. Provider and patient fact sheets can be found at https://www.[facility]/wi lonnie/074918/download and https://www.[facility]/wi lonnie/094515/download. Normal [facility] Comment on above: Performed By: #### C VFLR #### [facility] [employer] [facility] [address] [place] [address] , [id number] TS GELon 10-01-2021 TS GEL ABO Group: O Rh, Gel: POS Antibody Screen Gel: NEG Normal [facility] Comment on above: Performed By: #### T SGL #### [facility] TYPE AND SCREENon 10-01-2021 ABO Grouping O [facility] Rh Type Positive [facility] Test Performed by [facility], [address] [place], [place] [address] [facility] XR Chest 1 VWon 10-01-2021 Patient Name: ADORE WALTER Diagnostic Radiology ACCESSION EXAM DATE/TIME PROCEDURE ORDERING PROVIDER [id number] 10/01/2021 06:26 EST CR Chest 1 View Frontal MD JUSTIN, ROSETTE Pacheco CPT code 19981 Reason For Exam (CR Chest 1 View Frontal) Fall right femur fracture suspected Report PORTABLE CHEST CLINICAL INDICATION: Fall. Left chest pain. COMPARISON: 09/27/2021 rib series is used for comparison. TECHNIQUE: A single frontal view of thorax was obtained and reviewed. IMPRESSION: 1. Lines/ tubes/ devices: None. 2. Lungs and Pleura: No infiltrate or mass. No pneumothorax or pleural effusion. 3. Heart and mediastinum: Normal cardiomediastinal margin. Thoracic aortic arch atherosclerosis. 4. Bones: Degenerative changes of shoulders and spine. Report Dictated on --- Final --- Dictating Physician: JENS CHAVEZ DO, I Signed Date and Time: 10/01/2021 6:25 am Signed by: JENS CHAVEZ DO, I Transcribed Date and Time: 10/01/2021 6:26 [place] Jens Paiz DO - 10/01/2021 Patient Name: ADORE WALTER Diagnostic Radiology ACCESSION EXAM DATE/TIME PROCEDURE ORDERING PROVIDER [id number] 10/01/2021 06:26 EST CR Chest 1 View Frontal MD JUSTIN, ROSETTE Pacheco CPT code 93707 Reason For Exam (CR Chest 1 View Frontal) Fall right femur fracture suspected Report PORTABLE CHEST CLINICAL INDICATION: Fall. Left chest pain. COMPARISON: 09/27/2021 rib series is used for comparison. TECHNIQUE: A single frontal view of thorax was obtained and reviewed. IMPRESSION: 1. Lines/ tubes/ devices: None. 2. Lungs and Pleura: No infiltrate or mass. No pneumothorax or pleural effusion. 3. Heart and mediastinum: Normal cardiomediastinal margin. Thoracic aortic arch atherosclerosis. 4. Bones: Degenerative changes of shoulders and spine. Report Dictated on --- Final --- Dictating Physician: JENS CHAVEZ DO, I Signed Date and Time: 10/01/2021 6:25 am Signed by: JENS CHAVEZ DO, I Transcribed Date and Time: 10/01/2021 6:26 [facility] Work Phone: [facility] Work Phone: XR FEMUR LEFT (MIN 2 VIEWS)o n 10-01-2021 Patient Name: ADORE WALTER Diagnostic Radiology ACCESSION EXAM DATE/TIME PROCEDURE ORDERING PROVIDER [id number] 10/01/2021 12:58 EST CR Femur 2+ Views Left n NOHEMI OCONNOR CPT code 69201 Reason For Exam (CR Femur 2+ Views Left n) s/p femur ORIF Report Examination: CR Femur 2+ Views Left Clinical: s/p femur ORIF Comparison: 09/25/2021 Findings: AP and crossfire lateral views of the left femur. Osteopenia. There is periprosthetic fracture distal femoral diaphysis which is mildly displaced, unchanged in alignment. Left total hip arthroplasty. Acetabular component transfixed with two acetabular screws. Cemented femoral component. Large lateral sided plate and screw fixation of the femur unchanged. Cutaneous sergio lateral to the hip. Extensive atherosclerotic calcification throughout the femoral artery of the thigh. Left total knee arthroplasty in good alignment. Small soft tissue calcifications peripheral to the greater trochanter. Subcutaneous edema slightly worsened lateral hip and thigh. Impression: Slightly worsening subcutaneous edema. Unchanged alignment left femur status post ORIF with total hip and total knee arthroplasty. No gross evidence of new hardware failure. Report Dictated on --- Final --- Dictating Physician: MD VAZQUEZ ANTHONY J Signed Date and Time: 10/01/2021 1:50 pm Signed by: MD VAZQUEZ ANTHONY J Transcribed Date and Time: 10/01/2021 1:52 Omar Dawson MD - 10/01/2021 Patient Name: ADORE WALTER Diagnostic Radiology ACCESSION EXAM DATE/TIME PROCEDURE ORDERING PROVIDER [id number] 10/01/2021 12:58 EST CR Femur 2+ Views Left n NOHEMI OCONNOR CPT code 08270 Reason For Exam (CR Femur 2+ Views Left n) s/p femur ORIF Report Examination: CR Femur 2+ Views Left Clinical: s/p femur ORIF Comparison: 09/25/2021 Findings: AP and crossfire lateral views of the left femur. Osteopenia. There is periprosthetic fracture distal femoral diaphysis which is mildly displaced, unchanged in alignment. Left total hip arthroplasty. Acetabular component transfixed with two acetabular screws. Cemented femoral component. Large lateral sided plate and screw fixation of the femur unchanged. Cutaneous sergio lateral to the hip. Extensive atherosclerotic calcification throughout the femoral artery of the thigh. Left total knee arthroplasty in good alignment. Small soft tissue calcifications peripheral to the greater trochanter. Subcutaneous edema slightly worsened lateral hip and thigh. Impression: Slightly worsening subcutaneous edema. Unchanged alignment left femur status post ORIF with total hip and total knee arthroplasty. No gross evidence of new hardware failure. Report Dictated on --- Final --- Dictating Physician: MD VAZQUEZ ANTHONY J Signed Date and Time: 10/01/2021 1:50 pm Signed by: MD VAZQUEZ ANTHONY J Transcribed Date and Time: 10/01/2021 1:52 [facility] Work Phone: XR FEMUR LEFT (MIN 2 VIEWS)O rdered By: Omar Vazquez on 10-01-2021 [facility] Work Phone: XR FEMUR RIGHT (MIN 2 VIEWS) on 10-01-2021 [facility]: [id number] ACCESSION EXAM DATE/TIME PROCEDURE ORDERING PROVIDER [id number] 10/01/2021 06:27 EST CR Femur 2+ Views Right MD JUSTIN, ROSETTE dockery CPT code 71440 Reason For Exam (CR Femur 2+ Views Right n) Fall right femur pain Report RIGHT FEMUR CLINICAL INDICATION: Right leg pain. TECHNIQUE: AP and lateral COMPARISON: None. FINDINGS: There is no evidence of a fracture. Marked narrowing of the right hip joint. Right femur intramedullary roman with femoral neck screw is intact. No loosening. Right knee arthroplasty is intact. Medial to the knee arthroplasty is curvilinear soft tissue calcification of uncertain significance. No other bony or soft tissue abnormality is identified. Have a right SFA atherosclerotic aspirations. IMPRESSION: No acute traumatic osseous abnormality. Moderate right hip osteoarthritis. Hip and knee hardware is intact without loosening. Peripheral atherosclerotic calcifications Report Dictated on --- Final --- Dictating Physician: JENS CHAVEZ DO, I Signed Date and Time: 10/01/2021 6:27 am Signed by: JENS CHAVEZ DO, I Transcribed Date and Time: 10/01/2021 6:28 Jens Gomez DO - 10/01/2021 Patient Name: ADORE WALTER Diagnostic Radiology ACCESSION EXAM DATE/TIME PROCEDURE ORDERING PROVIDER [id number] 10/01/2021 06:27 EST CR Femur 2+ Views Right MD FLOOD GREGORY M n CPT code 60559 Reason For Exam (CR Femur 2+ Views Right n) Fall right femur pain Report RIGHT FEMUR CLINICAL INDICATION: Right leg pain. TECHNIQUE: AP and lateral COMPARISON: None. FINDINGS: There is no evidence of a fracture. Marked narrowing of the right hip joint. Right femur intramedullary roman with femoral neck screw is intact. No loosening. Right knee arthroplasty is intact. Medial to the knee arthroplasty is curvilinear soft tissue calcification of uncertain significance. No other bony or soft tissue abnormality is identified. Have a right SFA atherosclerotic aspirations. IMPRESSION: No acute traumatic osseous abnormality. Moderate right hip osteoarthritis. Hip and knee hardware is intact without loosening. Peripheral atherosclerotic calcifications Report Dictated on --- Final --- Dictating Physician: JENS CHAVEZ DO, I Signed Date and Time: 10/01/2021 6:27 am Signed by: JENS CHAVEZ DO, I Transcribed Date and Time: 10/01/2021 6:28 [facility] Work Phone: [facility] Work Phone: XR HIP RIGHT (2-3 VIEWS)on 0 10-01-2021 Patient Name: ADORE WALTER Diagnostic Radiology ACCESSION EXAM DATE/TIME PROCEDURE ORDERING PROVIDER [id number] 10/01/2021 06:27 EST CR Hip w/ Pelvis 2 or 3 MD FLOOD GREGORY M Views Right n CPT code 23441 Reason For Exam (CR Hip w/ Pelvis 2 or 3 Views Right n) Fall right hip pain Report RIGHT HIP: CLINICAL INDICATION: Fall. Right hip pain. TECHNIQUE: AP Pelvis, AP and frog leg lateral views of the right hip were obtained. COMPARISON: Correlation is made with left hip radiograph dated 09/24/2021. FINDINGS: There is marked axial narrowing of the right hip joint space. Inferior acetabulum osteophyte is identified. Right femoral roman with femoral neck screw is intact. No loosening or hardware failure. No acute fracture or dislocation. Normal bone mineral density is evident. Bilateral SI joints and pubic symphysis are maintained. Heavy bilateral superficial femoral atherosclerotic calcifications. Left hip arthroplasty is intact and aligned. No other bony or soft tissue abnormality is identified. IMPRESSION: No acute right hip fracture or dislocation. Moderate right hip osteoarthritis Intact bilateral hip hardware without loosening. Bilateral SFA peripheral arterial atherosclerosis. Report Dictated on --- Final --- Dictating Physician: JENS CHAVEZ DO, I Signed Date and Time: 10/01/2021 6:24 am Signed by: JENS CHAVEZ DO, I Transcribed Date and Time: 10/01/2021 6:27 Jens Gomez DO - 10/01/2021 [id number] ACCESSION EXAM DATE/TIME PROCEDURE ORDERING PROVIDER [id number] 10/01/2021 06:27 EST CR Hip w/ Pelvis 2 or 3 MD JUSTIN, ROSETTE Pacheco Views Right n CPT code 59487 Reason For Exam (CR Hip w/ Pelvis 2 or 3 Views Right n) Fall right hip pain Report RIGHT HIP: CLINICAL INDICATION: Fall. Right hip pain. TECHNIQUE: AP Pelvis, AP and frog leg lateral views of the right hip were obtained. COMPARISON: Correlation is made with left hip radiograph dated 09/24/2021. FINDINGS: There is marked axial narrowing of the right hip joint space. Inferior acetabulum osteophyte is identified. Right femoral roman with femoral neck screw is intact. No loosening or hardware failure. No acute fracture or dislocation. Normal bone mineral density is evident. Bilateral SI joints and pubic symphysis are maintained. Heavy bilateral superficial femoral atherosclerotic calcifications. Left hip arthroplasty is intact and aligned. No other bony or soft tissue abnormality is identified. IMPRESSION: No acute right hip fracture or dislocation. Moderate right hip osteoarthritis Intact bilateral hip hardware without loosening. Bilateral SFA peripheral arterial atherosclerosis. Report Dictated on --- Final --- Dictating Physician: JENS CHAVEZ DO, I Signed Date and Time: 10/01/2021 6:24 am Signed by: JENS CHAVEZ DO, I Transcribed Date and Time: 10/01/2021 6:27 [facility] Work Phone: [facility] Work Phone: XR KNEE RIGHT (1-2 VIEWS)on 10-01-2021 Patient Name: ADORE WALTER Diagnostic Radiology ACCESSION EXAM DATE/TIME PROCEDURE ORDERING PROVIDER [id number] 10/01/2021 06:27 EST CR Knee 1 or 2 Views MD FLOOD GREGORY M Right CPT code 79367 Reason For Exam (CR Knee 1 or 2 Views Right) Fall abnormal femur x-ray, right leg knee pain Report RIGHT KNEE: CLINICAL INDICATION: Right knee pain. TECHNIQUE: AP and lateral views of right knee. COMPARISON: None. FINDINGS: There is no evidence for fracture or subluxation. Curvilinear soft tissue density is noted medial to the medial prosthesis, and may represent avulsion fracture. No loosening or hardware failure. No bone lesion is noted. Small suprapatellar joint effusion is seen. No soft tissue abnormality is identified. IMPRESSION: Small joint effusion. Curvilinear soft tissue density is of uncertain significance and may represent avulsion fracture. No hardware loosening. Oblique views of the right knee may be helpful for further assessment. Report Dictated on --- Final --- Dictating Physician: JENS CHAVEZ DO, I Signed Date and Time: 10/01/2021 6:30 am Signed by: JENS CHAVEZ DO, I Transcribed Date and Time: 10/01/2021 6:31 [facility] Jens Chavez DO - 10/01/2021 Patient Name: ADORE WALTER Diagnostic Radiology ACCESSION EXAM DATE/TIME PROCEDURE ORDERING PROVIDER [id number] 10/01/2021 06:27 EST CR Knee 1 or 2 Views MD FLOOD GREGORY M Right CPT code 18289 Reason For Exam (CR Knee 1 or 2 Views Right) Fall abnormal femur x-ray, right leg knee pain Report RIGHT KNEE: CLINICAL INDICATION: Right knee pain. TECHNIQUE: AP and lateral views of right knee. COMPARISON: None. FINDINGS: There is no evidence for fracture or subluxation. Curvilinear soft tissue density is noted medial to the medial prosthesis, and may represent avulsion fracture. No loosening or hardware failure. No bone lesion is noted. Small suprapatellar joint effusion is seen. No soft tissue abnormality is identified. IMPRESSION: Small joint effusion. Curvilinear soft tissue density is of uncertain significance and may represent avulsion fracture. No hardware loosening. Oblique views of the right knee may be helpful for further assessment. Report Dictated on --- Final --- Dictating Physician: JENS CHAVEZ DO, I Signed Date and Time: 10/01/2021 6:30 am Signed by: JENS CHAVEZ DO, I Transcribed Date and Time: 10/01/2021 6:31 [facility] Work Phone: [facility] Work Phone: Radiology Study observation (narrative) [facility] Work Phone: XR KNEE RIGHT (MIN 4 VIEWS)o n 10-01-2021 [facility]: [id number] ACCESSION EXAM DATE/TIME PROCEDURE ORDERING PROVIDER [id number] 10/01/2021 13:01 EST CR Knee Complete 4+ [id number] -NOHEMI ARAIZA Views Right CPT code 73311 Reason For Exam (CR Knee Complete 4+ Views Right) R knee pain, concern for non displaced periprosthetic distal femur fracture Report Examination: CR Knee Complete 4+ Views Right Clinical: R knee pain, concern for non displaced periprosthetic distal femur fracture Comparison: 10/01/2021 at 05 25 Findings: Internal and external rotation AP and crossfire lateral views of the right knee. Osteopenia. There is periprosthetic fracture seen along the lateral femoral condyle. Minimal bone fixation laterally. There is knee joint effusion with lipohemarthrosis. Prior resurfacing of the patella. Intramedullary roman fixation of the proximal femur incompletely evaluated. Overlying bracing material in place. Atherosclerotic calcification femoral artery. Impression: Periprosthetic distal femoral fracture along the lateral femoral condyle unchanged in alignment. Osteopenia. Knee joint effusion/lipohemarthro sis. Report Dictated on --- Final --- Dictating Physician: MD VAZQUEZ ANTHONY J Signed Date and Time: 10/01/2021 1:53 pm Signed by: MD VAZQUEZ ANTHONY J Transcribed Date and Time: 10/01/2021 1:54 [facility] Omar Vazquez MD - 10/01/2021 Patient Name: ADORE WALTER Diagnostic Radiology ACCESSION EXAM DATE/TIME PROCEDURE ORDERING PROVIDER [id number] 10/01/2021 13:01 EST CR Knee Complete 4+ [id number] -NOHEMI ARAIZA Views Right CPT code 66850 Reason For Exam (CR Knee Complete 4+ Views Right) R knee pain, concern for non displaced periprosthetic distal femur fracture Report Examination: CR Knee Complete 4+ Views Right Clinical: R knee pain, concern for non displaced periprosthetic distal femur fracture Comparison: 10/01/2021 at 05 25 Findings: Internal and external rotation AP and crossfire lateral views of the right knee. Osteopenia. There is periprosthetic fracture seen along the lateral femoral condyle. Minimal bone fixation laterally. There is knee joint effusion with lipohemarthrosis. Prior resurfacing of the patella. Intramedullary roman fixation of the proximal femur incompletely evaluated. Overlying bracing material in place. Atherosclerotic calcification femoral artery. Impression: Periprosthetic distal femoral fracture along the lateral femoral condyle unchanged in alignment. Osteopenia. Knee joint effusion/lipohemarthro sis. Report Dictated on --- Final --- Dictating Physician: MD VAZQUEZ ANTHONY J Signed Date and Time: 10/01/2021 1:53 pm Signed by: MD VAZQUEZ ANTHONY J Transcribed Date and Time: 10/01/2021 1:54 [facility] Work Phone: [facility] Work Phone: Radiology Study observation (narrative) [facility] Work Phone: [phone] COVID-19on 09-29-2021 SARS-CoV-2 (COVID-19) RNA MARVIN+probe Ql (Unsp spec) Not detected Not Detected [facility] Work Phone: Comment on above: Not Detected. Expected result: Not Detected _ Method: Real-time, RT-PCR Negative results do not preclude SARS-CoV-2 infection and should not be used as the sole basis for treatment or other patient management decisions. This assay was developed by [employer] and distributed under an Emergency Use Authorization (EUA) granted by the [employer] for the qualitative detection of SARS-CoV-2 nucleic acid. Provider and patient fact sheets can be found at https://www.[employer].gov/media/000994/download and https://www.[employer].gov/media/752154/download. Test Performed by [employer] [facility], [address] [place] [id number] [place] [address] Work Phone: [phone] 09-29-2021 SARS-CoV-2 (COVID-19) RNA MARVIN+probe Ql (Unsp spec) SARS-CoV-2 --> Status: F Not Detected. Expected result: Not Detected _ Method: Real-time, RT-PCR Negative results do not preclude SARS-CoV-2 infection and should not be used as the sole basis for treatment or other patient management decisions. This assay was developed by [employer] and distributed under an Emergency Use Authorization (EUA) granted by the FDA for the qualitative detection of SARS-CoV-2 nucleic acid. Provider and patient fact sheets can be found at https://www.fda.gov/[employer] lonnie/475015/download and https://www.fda.gov/[employer]/326615/download. Expected result: Not Detected _ Method: Real-time, RT-PCR Negative results do not preclude SARS-CoV-2 infection and should not be used as the sole basis for treatment or other patient management decisions. This assay was developed by [employer] and distributed under an Emergency Use Authorization (EUA) granted by the FDA for the qualitative detection of SARS-CoV-2 nucleic acid. Provider and patient fact sheets can be found at https://www.[facility].gov/wi lonnie/254950/download and https://www.fda.gov/wi lonnie/713039/download. Normal [facility] Comment on above: Performed By: #### C OVID #### [facility] [address] [place] [address] Basic Metabolic Panelon 02-2 Anion gap [Moles/Vol] 0 mmol/L Low 3-13 [facility] Comment on above: Performed By: #### C OVID #### [facility] [address] [place] [address] Calcium [Mass/Vol] 8.5 mg/dL Normal 8.4-10.4 [facility] Comment on above: Performed By: #### C OVID #### [facility] [address] [place] [address] CO2 [Moles/Vol] 30 mmol/L Normal 22-30 [facility] Comment on above: Performed By: #### C OVID #### [facility] [address] [place] [address] Glucose [Mass/Vol] 99 mg/dL Normal 70-100 [facility] Comment on above: Performed By: #### C OVID #### [facility] [address] [place] [address] Urea nitrogen [Mass/Vol] 31 mg/dL High 9-20 [facility] Comment on above: Performed By: #### C OVID #### [facility] [address] [place] [address] Creatinine [Mass/Vol] 0.73 mg/dL Normal 0.52-1.25 [facility] Comment on above: Performed By: #### C OVID #### [facility] [address] [place] [address] GFR/1.73 sq M.predicted among blacks MDRD (S/P/Bld) [Vol rate/Area] 87.3 mL/min/{1.73_m2} Normal >60 [facility] Comment on above: Performed By: #### C OVID #### [address] GFR/1.73 sq M.predicted among non-blacks MDRD (S/P/Bld) [Vol rate/Area] 75.3 mL/min/{1.73_m2} Normal >60 [facility] Comment on above: Result Comment: KDIG O guidelines provide the following GFR categories: Stage GFR(ml/min/1.73 m2) Terms G1 >=90 Normal or high G2 60-89 Mildly decreased* G3a 45-59 Mildly to moderately decreased G3b 30-44 Moderately to severely decreased G4 15-29 Severely decreased G5 <15 Kidney failure *Relative to young adult level. In the absence of evidence of kidney damage, neither GFR category G1 nor G2 fulfill the criteria for CKD. The CKD-EPI equation is validated in individuals 18 years of age and older. Currently the best equation for estimating glomerular filtration rate (GFR) from serum creatinine in children is the Bedside Mckenzie equation. It is less accurate in patients with extremes of muscle mass, restriction of dietary protein, ingestion of creatine, extra-renal metabolism of creatinine, or treatment with medications that affect renal tubular creatinine secretion. Performed By: #### C OVID #### [address] Potassium [Moles/Vol] 4.7 mmol/L Normal 3.5-5.1 [facility] Comment on above: Performed By: #### C OVID #### [address] Chloride [Moles/Vol] 101 mmol/L Normal 98-107 [facility] Comment on above: Performed By: #### C OVID #### [address] Sodium [Moles/Vol] 131 mmol/L Low 135-145 [facility] Comment on above: Performed By: #### C OVID #### [address] Basic Metabolic Panel w/ Ref suzan to MGon 09-28-2021 Anion gap [Moles/Vol] 0 mmol/L Low 3 - 13 mmol/L [facility] Work Phone: Calcium [Mass/Vol] 8.5 mg/dL 8.4 - 10. 4 mg/dL [facility] Work Phone: [phone] Chloride [Moles/Vol] 101 mmol/L 98 - 10 7 mmol/L [facility] Work Phone: [phone] CO2 [Moles/Vol] 30 mmol/L 22 - 30 mmol/L [facility] Work Phone: [phone] Creatinine [Mass/Vol] 0.73 mg/dL 0.52 - 1.25 mg/dL [facility] Work Phone: [phone] EGFR IF NonAfrican Central African 75.3 mL/min >60 [facility] Work Phone: [phone] Comment on above: KDIGO guidelines pro vide the following GFR categories: Stage GFR(ml/min/1.73 m2) Terms G1 >=90 Normal or high G2 60-89 Mildly decreased* G3a 45-59 Mildly to moderately decreased G3b 30-44 Moderately to severely decreased G4 15-29 Severely decreased G5 <15 Kidney failure *Relative to young adult level. In the absence of evidence of kidney damage, neither GFR category G1 nor G2 fulfill the criteria for CKD. The CKD-EPI equation is validated in individuals 18 years of age and older. Currently the best equation for estimating glomerular filtration rate (GFR) from serum creatinine in children is the Bedside Mckenzie equation. It is less accurate in patients with extremes of muscle mass, restriction of dietary protein, ingestion of creatine, extra-renal metabolism of creatinine, or treatment with medications that affect renal tubular creatinine secretion. GFR/1.73 sq M.predicted among blacks MDRD (S/P/Bld) [Vol rate/Area] 87.3 mL/min/{1.73_m2} >60 [facility] Work Phone: [phone] Glucose [Mass/Vol] 99 mg/dL 70 - 100 mg/dL [facility] Work Phone: [phone] Interpretation and review of laboratory results Abnormal [facility] Work Phone: [phone] Potassium [Moles/Vol] 4.7 mmol/L 3.5 - 5.1 mmol/L [facility] Work Phone: [phone] Sodium [Moles/Vol] 131 mmol/L Low 135 - 145 mmol/L [facility] Work Phone: [phone] Urea nitrogen (BldV) [Mass/Vol] 31 mg/dL High 9 - 20 mg/dL [facility] Work Phone: Test Performed by [facility] [place] [address] [employer] [facility] Work Phone: [phone] CBCon 09-28-2021 Hematocrit (Bld) [Volume fraction] 26.1 % Low 35.0 - 47.0 % [facility] Work Phone: Hemoglobin.gastrointesti nal spec 1 Ql (Stl) 8.5 g/dL Low 11.7 - 16.0 g/dL [facility] Work Phone: [phone] Interpretation and review of laboratory results Abnormal [facility] Work Phone: MCH (RBC) [Entitic mass] 30.5 pg 26. 0 - 34.0 pg [facility] Work Phone: MCHC (RBC) [Mass/Vol] 32.4 % 32.0 - 36.0 % [facility] Work Phone: MCV (RBC) [Entitic vol] 93.9 fL 79.0 - 98.0 fL [facility] Work Phone: Platelet distribution width (Bld) [Ratio] 14.4 % 11.5 - 14.5 % [facility] Work Phone: Platelet mean volume (Bld) [Entitic vol] 8.3 fL 7.4 - 10.4 fL [facility] Work Phone: Platelets (Bld) [#/Vol] 224 10*3/uL 140 - 440 10*3/uL [facility] Work Phone: RBC (Bld) [#/Vol] 2.77 10*6/uL Low 3.80 - 5.2 0 10*6/uL [facility] Work Phone: WBC (Bld) [#/Vol] 8.2 10*3/uL 3.6 - 10.7 10*3/uL [facility] Work Phone: Test Performed by [employer], [address] [place] [id number] [place] [address] - [facility] Work Phone: Hemogramon 09-28-2021 Erythrocyte distribution width (RBC) [Ratio] 14.4 % Normal 11.5-14.5 [facility] Comment on above: Performed By: #### B MP3M, HEMOG #### [address] [place] [address] [place], [place] Hematocrit (Bld) [Volume fraction] 26.1 % Low 35.0-47.0 [facility] Comment on above: Performed By: #### B MP3M, HEMOG #### [address] [address] [place], [place] Hemoglobin (Bld) [Mass/Vol] 8.5 g/dL Low 11.7-16.0 [facility] Comment on above: Performed By: #### B MP3M, HEMOG #### [address] [address] [place], [place] MCH (RBC) [Entitic mass] 30.5 pg Normal 26.0-34.0 [facility] Comment on above: Performed By: #### B MP3M, HEMOG #### [address] [address] [place] MCHC 32.4 % Normal 32.0-36.0 [facility] Comment on above: Performed By: #### B MP3M, HEMOG #### [address] [address] [address] [place], [place] MCV (RBC) [Entitic vol] 93.9 fL Normal 79.0-98.0 [facility] Comment on above: Performed By: #### B MP3M, HEMOG #### [address] Platelet mean volume (Bld) [Entitic vol] 8.3 fL Normal 7.4-10.4 [facility] Comment on above: Performed By: #### B MP3M, HEMOG #### [address] [address] [place] [address] Platelets (Bld) [#/Vol] 224 10*3/uL Normal 140-440 [facility] Comment on above: Performed By: #### B MP3Junior, HEMOG #### [address] [place] [address] [address] [place], [place] RBC (Bld) [#/Vol] 2.77 10*6/uL Low 3.80-5.20 [facility] Comment on above: Performed By: #### B MP3Junior, HEMOG #### [address] [address] [address] [place], [place] WBC (Bld) [#/Vol] 8.2 10*3/uL Normal 3.6-10.7 [facility] Comment on above: Performed By: #### B MP3Junior, HEMOG #### [address] [place] [address] [address] [place], [place] Basic Metabolic Panelon 02-2 Anion gap [Moles/Vol] 1 mmol/L Low 3-13 [facility] Comment on above: Performed By: #### H SOLE BMP3M #### [address] [place] [address] [address], [place] Calcium [Mass/Vol] 8.6 mg/dL Normal 8.4-10.4 [facility] Comment on above: Performed By: #### Jagdeep EMDRalph BMP3M #### [address] [place] [address] [address] [place], [place] CO2 [Moles/Vol] 27 mmol/L Normal 22-30 [facility] Comment on above: Performed By: #### Jagdeep EMDRalph BMP3M #### [address] [place] [address] [address] [place], [place] Creatinine [Mass/Vol] 0.77 mg/dL Normal 0.52-1.25 [facility] Comment on above: Performed By: #### H EMDRalph BMP3M #### [address] [place] [address] [address] [place], [place] GFR/1.73 sq M.predicted among blacks MDRD (S/P/Bld) [Vol rate/Area] 81.8 mL/min/{1.73_m2} Normal >60 [facility] Comment on above: Performed By: #### H HENRI WHIPPLE3M #### [address] [place] [address] GFR/1.73 sq M.predicted among non-blacks MDRD (S/P/Bld) [Vol rate/Area] 70.6 mL/min/{1.73_m2} Normal >60 [facility] Comment on above: Result Comment: KDIG O guidelines provide the following GFR categories: Stage GFR(ml/min/1.73 m2) Terms G1 >=90 Normal or high G2 60-89 Mildly decreased* G3a 45-59 Mildly to moderately decreased G3b 30-44 Moderately to severely decreased G4 15-29 Severely decreased G5 <15 Kidney failure *Relative to young adult level. In the absence of evidence of kidney damage, neither GFR category G1 nor G2 fulfill the criteria for CKD. The CKD-EPI equation is validated in individuals 18 years of age and older. Currently the best equation for estimating glomerular filtration rate (GFR) from serum creatinine in children is the Bedside Mckenzie equation. It is less accurate in patients with extremes of muscle mass, restriction of dietary protein, ingestion of creatine, extra-renal metabolism of creatinine, or treatment with medications that affect renal tubular creatinine secretion. Performed By: #### H HENRI WHIPPLE3M #### [address] [place], [place] Glucose [Mass/Vol] 102 mg/dL High 70-100 [facility] Comment on above: Performed By: #### H SOLE BMP3M #### [address] [place], [place] Urea nitrogen [Mass/Vol] 34 mg/dL High 9-20 [facility] Comment on above: Performed By: #### H SOLE BMP3M #### [address] Chloride [Moles/Vol] 104 mmol/L Normal 98-107 [facility] Comment on above: Performed By: #### H SOLE BMP3M #### [address] [place], [place] Potassium [Moles/Vol] 4.1 mmol/L Normal 3.5-5.1 [facility] Comment on above: Performed By: #### H HENRI WHIPPLE3M #### [facility] [address], [place] Sodium [Moles/Vol] 132 mmol/L Low 135-145 [facility] Comment on above: Performed By: #### H HENRI WHIPPLE3M #### [facility] [address], [place] Basic Metabolic Panel w/ Ref suzan to MG 09-27-2021 Anion gap [Moles/Vol] 1 mmol/L Low 3 - 13 mmol/L [facility] Calcium [Mass/Vol] 8.6 mg/dL 8.4 - 10. 4 mg/dL [facility] Chloride [Moles/Vol] 104 mmol/L 98 - 10 7 mmol/L [facility] CO2 [Moles/Vol] 27 mmol/L 22 - 30 mmol/L [facility] Creatinine [Mass/Vol] 0.77 mg/dL 0.52 - 1.25 mg/dL [facility] EGFR IF NonAfrican Central African 70.6 mL/min >60 [facility] Comment on above: KDIGO guidelines pro vide the following GFR categories: Stage GFR(ml/min/1.73 m2) Terms G1 >=90 Normal or high G2 60-89 Mildly decreased* G3a 45-59 Mildly to moderately decreased G3b 30-44 Moderately to severely decreased G4 15-29 Severely decreased G5 <15 Kidney failure *Relative to young adult level. In the absence of evidence of kidney damage, neither GFR category G1 nor G2 fulfill the criteria for CKD. The CKD-EPI equation is validated in individuals 18 years of age and older. Currently the best equation for estimating glomerular filtration rate (GFR) from serum creatinine in children is the Bedside Mckenzie equation. It is less accurate in patients with extremes of muscle mass, restriction of dietary protein, ingestion of creatine, extra-renal metabolism of creatinine, or treatment with medications that affect renal tubular creatinine secretion. GFR/1.73 sq M.predicted among blacks MDRD (S/P/Bld) [Vol rate/Area] 81.8 mL/min/{1.73_m2} >60 [facility] Glucose [Mass/Vol] 102 mg/dL High 70 - 100 mg/dL [facility] Interpretation and review of laboratory results Abnormal [facility] Potassium [Moles/Vol] 4.1 mmol/L 3.5 - 5.1 mmol/L [facility] Sodium [Moles/Vol] 132 mmol/L Low 135 - 145 mmol/L [facility] Urea nitrogen (BldV) [Mass/Vol] 34 mg/dL High 9 - 20 mg/dL [facility] Test Performed by [facility], [address] [place] [id number] [place] [address] LAB [facility] CBC with Auto Differentialon 09-27-2021 Absolute Baso # 0.0 10*3/uL 0.0 - 0.2 10*3/uL [facility] Absolute Neut # 6.8 10*3/uL 1.8 - 7.0 10*3/uL [facility] Basophils/100 WBC (Bld) 0.1 % 0.0 - 2.0 % [facility] Eosinophils (Bld) [#/Vol] 0.0 10*3/uL 0.0 - 0.5 10*3/uL [facility] Eosinophils/100 WBC (Bld) 0.1 % Low 1.0 - 6.0 % [facility] Granulocytes/100 WBC (Bld) 71.5 % 40.0 - 80.0 % [facility] Hematocrit (Bld) [Volume fraction] 24.9 % Low 35.0 - 47.0 % [facility] Hemoglobin.gastrointesti nal spec 1 Ql (Stl) 8.3 g/dL Low 11.7 - 16.0 g/dL [facility] Interpretation and review of laboratory results Abnormal [facility] Lymphocytes (Bld) [#/Vol] 1.7 10*3/uL 1.0 - 4.3 10*3/uL [facility] Lymphocytes/100 WBC (Bld) 18.1 % Low 20.0 - 40.0 % [facility] MCH (RBC) [Entitic mass] 31.4 pg 26. 0 - 34.0 pg [facility] MCHC (RBC) [Mass/Vol] 33.2 % 32.0 - 36.0 % [facility] MCV (RBC) [Entitic vol] 94.5 fL 79.0 - 98.0 fL [facility] Monocytes (Bld) [#/Vol] 1.0 10*3/uL High 0.0 - 0.8 10*3/uL [facility] Monocytes/100 WBC (Bld) 10.2 % High 2.0 - 10.0 % [facility] Platelet distribution width (Bld) [Ratio] 14.5 % 11.5 - 14.5 % [facility] Platelet mean volume (Bld) [Entitic vol] 8.7 fL 7.4 - 10.4 fL [facility] Platelets (Bld) [#/Vol] 199 10*3/uL 140 - 440 10*3/uL [facility] RBC (Bld) [#/Vol] 2.63 10*6/uL Low 3.80 - 5.2 0 10*6/uL [facility] WBC (Bld) [#/Vol] 9.5 10*3/uL 3.6 - 10.7 10*3/uL [facility] Test Performed by [address] CR Ribs 2 Views Lefton 09-27 CR Ribs 2 Views Left [facility]: [id number] ACCESSION EXAM DATE/TIME PROCEDURE ORDERING PROVIDER [id number] 09/27/2021 19:14 EST CR Ribs 2 Views Left [id number] -OSCAR LEDESMA CPT code 91629 Reason For Exam (CR Ribs 2 Views Left) sudden onset rib pain following sneeze, recent fall Report CR Ribs 2 Views Left CLINICAL INDICATION: sudden onset rib pain following sneeze, recent fall TECHNIQUE: Two views of the left ribs COMPARISON: 09/24/2021 chest x-ray FINDINGS: No acute rib fracture seen. IMPRESSION: 1. No acute rib fracture seen. Report Dictated on Workstation: JOSE Final Dictated: 09/27/2021 7:43 pm Dictating Physician: MD JUNE JOHN R Signed Date and Time: 09/27/2021 7:45 pm Signed by: MD JUNE JOHN R Transcribed Date and Time: 09/27/2021 7:43 Normal [facility] Hemogram w/ Autodiffon 09-27 Abs Baso Cnt 0.0 10*3/uL Normal 0.0-0.2 [facility] Comment on above: Performed By: #### H EMDF BMP3M #### [address] [place], [place] Abs Neutrophile Cnt 6.8 10*3/uL Normal 1.8-7.0 [facility] Comment on above: Performed By: #### H EMDF BMP3M #### [address] [place], [place] Basophils/100 WBC (Bld) 0.1 % Normal 0.0-2.0 [facility] Comment on above: Performed By: #### H EMDF BMP3M #### [address] Eosinophils (Bld) [#/Vol] 0.0 10*3/uL Normal 0.0-0.5 [facility] Comment on above: Performed By: #### H EMDF BMP3M #### [address] Eosinophils/100 WBC (Bld) 0.1 % Low 1.0-6.0 [facility] Comment on above: Performed By: #### H EMDF BMP3M #### [address] Erythrocyte distribution width (RBC) [Ratio] 14.5 % Normal 11.5-14.5 [facility] Comment on above: Performed By: #### H EMDF BMP3M #### [address] [place], [place] Granulocytes/100 WBC (Bld) 71.5 % Normal 40.0-80.0 [facility] Comment on above: Performed By: #### H EMDF BMP3M #### [address] Hematocrit (Bld) [Volume fraction] 24.9 % Low 35.0-47.0 [facility] Comment on above: Performed By: #### H EMDF BMP3M #### [address] Hemoglobin (Bld) [Mass/Vol] 8.3 g/dL Low 11.7-16.0 [facility] Comment on above: Performed By: #### HENRI SELLERS3M #### [address] [place], [place] Lymphocytes (Bld) [#/Vol] 1.7 10*3/uL Normal 1.0-4.3 [facility] Comment on above: Performed By: #### Jagdeep WHIPPLE BMP3M #### [address] [place], [place] Lymphocytes/100 WBC (Bld) 18.1 % Low 20.0-40.0 [facility] Comment on above: Performed By: #### HENRI SELLERS3M #### [address] MCH (RBC) [Entitic mass] 31.4 pg Normal 26.0-34.0 [facility] Comment on above: Performed By: #### Jagdeep WHIPPLE BMP3M #### [address] [place] MCHC 33.2 % Normal 32.0-36.0 [facility] Comment on above: Performed By: #### HENRI SELLERS3M #### [address] MCV (RBC) [Entitic vol] 94.5 fL Normal 79.0-98.0 [facility] Comment on above: Performed By: #### H SOLE BMP3M #### [address] [place], [place] Monocytes (Bld) [#/Vol] 1.0 10*3/uL High 0.0-0.8 [facility] Comment on above: Performed By: #### Jagdeep WHIPPLE BMP3M #### [address] Monocytes/100 WBC (Bld) 10.2 % High 2.0-10.0 [facility] Comment on above: Performed By: #### H EMDF, BMP3M #### [facility] [employer] [facility] [address] [place] [address] Platelet mean volume (Bld) [Entitic vol] 8.7 fL Normal 7.4-10.4 [facility] Comment on above: Performed By: #### H EMDF, BMP3M #### [facility] [address] [place] [address] Platelets (Bld) [#/Vol] 199 10*3/uL Normal 140-440 [facility] Comment on above: Performed By: #### H EMDF, BMP3M #### [facility] [address] [place], [place] RBC (Bld) [#/Vol] 2.63 10*6/uL Low 3.80-5.20 [facility] Comment on above: Performed By: #### H EMDF, BMP3M #### [facility] [address] [place], [place] WBC (Bld) [#/Vol] 9.5 10*3/uL Normal 3.6-10.7 [facility] Comment on above: Performed By: #### H EMDF, BMP3M #### [facility] [employer] [facility] [address], [place] XR RIBS LEFT (2 VIEWS)on Patient Name: ADORE WALTER Diagnostic Radiology ACCESSION EXAM DATE/TIME PROCEDURE ORDERING PROVIDER [id number] 09/27/2021 19:14 EST CR Ribs 2 Views Left [id number] -OSCAR LEDESMA CPT code 26737 Reason For Exam (CR Ribs 2 Views Left) sudden onset rib pain following sneeze, recent fall Report CR Ribs 2 Views Left CLINICAL INDICATION: sudden onset rib pain following sneeze, recent fall TECHNIQUE: Two views of the left ribs COMPARISON: 09/24/2021 chest x-ray FINDINGS: No acute rib fracture seen. IMPRESSION: 1. No acute rib fracture seen. Report Dictated on Workstation: JOSE --- Final --- Dictated: 09/27/2021 7:43 pm Dictating Physician: MD JUNE JOHN R Signed Date and Time: 09/27/2021 7:45 pm Signed by: MD JUNE JOHN R Transcribed Date and Time: 09/27/2021 7:43 [facility] Stefan June MD - 09/27/2021 [id number]iology ACCESSION EXAM DATE/TIME PROCEDURE ORDERING PROVIDER [id number] 09/27/2021 19:14 EST CR Ribs 2 Views Left [id number] -OSCAR LEDESMA CPT code 95930 Reason For Exam (CR Ribs 2 Views Left) sudden onset rib pain following sneeze, recent fall Report CR Ribs 2 Views Left CLINICAL INDICATION: sudden onset rib pain following sneeze, recent fall TECHNIQUE: Two views of the left ribs COMPARISON: 09/24/2021 chest x-ray FINDINGS: No acute rib fracture seen. IMPRESSION: 1. No acute rib fracture seen. Report Dictated on Workstation: JOSE --- Final --- Dictated: 09/27/2021 7:43 pm Dictating Physician: MD JUNE JOHN R Signed Date and Time: 09/27/2021 7:45 pm Signed by: MD JUNE JOHN R Transcribed Date and Time: 09/27/2021 7:43 [facility] Work Phone: Radiology Study observation (narrative) [facility] Work Phone: XR RIBS LEFT (2 VIEWS)Ordere d By: Stefan June on 09-27-2021 [facility] Work Phone: Basic Metabolic Panelon 09-03 Calcium [Mass/Vol] 8.8 mg/dL Normal 8.4-10.4 [facility] Comment on above: Performed By: #### C OVID #### [address] [address] Glucose [Mass/Vol] 131 mg/dL High 70-100 [facility] Comment on above: Performed By: #### C OVID #### [facility] [address] [place] [address] Anion gap [Moles/Vol] 2 mmol/L Low 3-13 [facility] Comment on above: Performed By: #### C OVID #### [facility] [address] [place] [address] CO2 [Moles/Vol] 27 mmol/L Normal 22-30 [facility] Comment on above: Performed By: #### C OVID #### [facility] [address] [place] [address] Creatinine [Mass/Vol] 0.66 mg/dL Normal 0.52-1.25 [facility] Comment on above: Performed By: #### C OVID #### [facility] [address] [place] [address] GFR/1.73 sq M.predicted among blacks MDRD (S/P/Bld) [Vol rate/Area] mL/min/{1.73_m2} Normal >60 [facility] Comment on above: Performed By: #### C OVID #### [facility] [address] [place] [address] GFR/1.73 sq M.predicted among non-blacks MDRD (S/P/Bld) [Vol rate/Area] 80.8 mL/min/{1.73_m2} Normal >60 [facility] Comment on above: Result Comment: KDIG O guidelines provide the following GFR categories: Stage GFR(ml/min/1.73 m2) Terms G1 >=90 Normal or high G2 60-89 Mildly decreased* G3a 45-59 Mildly to moderately decreased G3b 30-44 Moderately to severely decreased G4 15-29 Severely decreased G5 <15 Kidney failure *Relative to young adult level. In the absence of evidence of kidney damage, neither GFR category G1 nor G2 fulfill the criteria for CKD. The CKD-EPI equation is validated in individuals 18 years of age and older. Currently the best equation for estimating glomerular filtration rate (GFR) from serum creatinine in children is the Bedside Mckenzie equation. It is less accurate in patients with extremes of muscle mass, restriction of dietary protein, ingestion of creatine, extra-renal metabolism of creatinine, or treatment with medications that affect renal tubular creatinine secretion. Performed By: #### C OVID #### [facility] [address] [place], [place] Urea nitrogen [Mass/Vol] 28 mg/dL High 9-20 [facility] Comment on above: Performed By: #### C OVID #### [facility] [address] [place], [place] Chloride [Moles/Vol] 103 mmol/L Normal 98-107 [facility] Comment on above: Performed By: #### C OVID #### [facility] [address] [place], [place] Potassium [Moles/Vol] 4.5 mmol/L Normal 3.5-5.1 [facility] Comment on above: Performed By: #### C OVID #### [facility] [address] [place], [place] Sodium [Moles/Vol] 132 mmol/L Low 135-145 [facility] Comment on above: Performed By: #### C OVID #### [facility] [address], [place] Basic Metabolic Panel w/ Ref suzan to MGon 09-26-2021 Anion gap [Moles/Vol] 2 mmol/L Low 3 - 13 mmol/L [facility] Calcium [Mass/Vol] 8.8 mg/dL 8.4 - 10. 4 mg/dL [facility] Chloride [Moles/Vol] 103 mmol/L 98 - 10 7 mmol/L [facility] CO2 [Moles/Vol] 27 mmol/L 22 - 30 mmol/L [facility] Creatinine [Mass/Vol] 0.66 mg/dL 0.52 - 1.25 mg/dL [facility] EGFR IF NonAfrican Central African 80.8 mL/min >60 [facility] Comment on above: KDIGO guidelines pro vide the following GFR categories: Stage GFR(ml/min/1.73 m2) Terms G1 >=90 Normal or high G2 60-89 Mildly decreased* G3a 45-59 Mildly to moderately decreased G3b 30-44 Moderately to severely decreased G4 15-29 Severely decreased G5 <15 Kidney failure *Relative to young adult level. In the absence of evidence of kidney damage, neither GFR category G1 nor G2 fulfill the criteria for CKD. The CKD-EPI equation is validated in individuals 18 years of age and older. Currently the best equation for estimating glomerular filtration rate (GFR) from serum creatinine in children is the Bedside Mckenzie equation. It is less accurate in patients with extremes of muscle mass, restriction of dietary protein, ingestion of creatine, extra-renal metabolism of creatinine, or treatment with medications that affect renal tubular creatinine secretion. GFR/1.73 sq M.predicted among blacks MDRD (S/P/Bld) [Vol rate/Area] mL/min/{1.73_m2} >60 mL/min [facility] Glucose [Mass/Vol] 131 mg/dL High 70 - 100 mg/dL [facility] Interpretation and review of laboratory results Abnormal [facility] Potassium [Moles/Vol] 4.5 mmol/L 3.5 - 5.1 mmol/L [facility] Sodium [Moles/Vol] 132 mmol/L Low 135 - 145 mmol/L [facility] Urea nitrogen (BldV) [Mass/Vol] 28 mg/dL High 9 - 20 mg/dL [facility] Test Performed by [id number] [place] [address] LAB [facility] CBC with Auto Differentialon 09-26-2021 Absolute Baso # 0.0 10*3/uL 0.0 - 0.2 10*3/uL [facility] Absolute Neut # 10.2 10*3/uL High 1.8 - 7.0 10*3/uL [facility] Basophils/100 WBC (Bld) 0.3 % 0.0 - 2.0 % [facility] Eosinophils (Bld) [#/Vol] 0.0 10*3/uL 0.0 - 0.5 10*3/uL [facility] Eosinophils/100 WBC (Bld) 0.0 % Low 1.0 - 6.0 % [facility] Granulocytes/100 WBC (Bld) 82.4 % High 40.0 - 80.0 % [facility] Hematocrit (Bld) [Volume fraction] 29.2 % Low 35.0 - 47.0 % [facility] Hemoglobin.gastrointesti nal spec 1 Ql (Stl) 9.6 g/dL Low 11.7 - 16.0 g/dL [facility] Interpretation and review of laboratory results Abnormal [facility] Lymphocytes (Bld) [#/Vol] 1.2 10*3/uL 1.0 - 4.3 10*3/uL [facility] Lymphocytes/100 WBC (Bld) 9.6 % Low 20.0 - 40.0 % [facility] MCH (RBC) [Entitic mass] 31.3 pg 26. 0 - 34.0 pg [facility] MCHC (RBC) [Mass/Vol] 33.0 % 32.0 - 36.0 % [facility] MCV (RBC) [Entitic vol] 94.6 fL 79.0 - 98.0 fL [facility] Monocytes (Bld) [#/Vol] 0.9 10*3/uL High 0.0 - 0.8 10*3/uL [facility] Monocytes/100 WBC (Bld) 7.7 % 2.0 - 10.0 % [facility] Platelet distribution width (Bld) [Ratio] 14.7 % High 11.5 - 14.5 % [facility] Platelet mean volume (Bld) [Entitic vol] 8.2 fL 7.4 - 10.4 fL [facility] Platelets (Bld) [#/Vol] 214 10*3/uL 140 - 440 10*3/uL [facility] RBC (Bld) [#/Vol] 3.08 10*6/uL Low 3.80 - 5.2 0 10*6/uL [facility] WBC (Bld) [#/Vol] 12.4 10*3/uL High 3.6 - 10.7 10*3/uL [facility] Test Performed by [facility], [address] [place] [id number] [facility] CULT/STAIN - AEROBIC AND PATRICK HUYNHon 09-26-2021 CULT/STAIN - AEROBIC AND ANAEROBIC STAIN GRAM --> Status: F Many polymorphonuclear cells/lpf. No organisms seen. No organisms seen. CULTURE ANAEROBE --> Status: F No growth of anaerobes at 5 days. 1 Organism Escherichia coli Few 1 Organism Antibiotic Result Intrp Ampicillin(YONATHAN) <= 2 S Cefazolin(YONATHAN) <= 4 S Ceftriaxone(YONATHAN) <= 1 S Cefepime(YONATHAN) <= 1 S Aztreonam(YONATHAN) <= 1 S Amoxicillin/Clavulanic Acid(YONATHAN) <= 2 S Ampicillin/Sulbactam(M IC) <= 2 S Pip/Tazobactam(YONATHAN) <= 4 S Meropenem(YONATHAN) <= 0.25 S Ciprofloxacin(YONATHAN) <= 0.25 S Trimeth/Sulfa(YONATHAN) <= 20 S Gentamicin(YONATHAN) <= 1 S Amikacin(YONATHAN) <= 2 S Normal [facility] Comment on above: Performed By: #### C XAAN #### [address] [place], [place] [facility] [address] [place], [place] Hemogram w/ Autodiffon 09-26 Abs Baso Cnt 0.0 10*3/uL Normal 0.0-0.2 [facility] Comment on above: Performed By: #### C OVID #### [address] [place], [place] Abs Neutrophile Cnt 10.2 10*3/uL High 1.8-7.0 [facility] Comment on above: Performed By: #### C OVID #### [address] [place], [place] Basophils/100 WBC (Bld) 0.3 % Normal 0.0-2.0 [facility] Comment on above: Performed By: #### C OVID #### [address] [place], [place] Eosinophils (Bld) [#/Vol] 0.0 10*3/uL Normal 0.0-0.5 [facility] Comment on above: Performed By: #### C OVID #### [facility] [address] [place], [place] Eosinophils/100 WBC (Bld) 0.0 % Low 1.0-6.0 [facility] Comment on above: Performed By: #### C OVID #### [facility] [address] [place], [place] Erythrocyte distribution width (RBC) [Ratio] 14.7 % High 11.5-14.5 [facility] Comment on above: Performed By: #### C OVID #### [facility] [address] [place], [place] Granulocytes/100 WBC (Bld) 82.4 % High 40.0-80.0 [facility] Comment on above: Performed By: #### C OVID #### [address] [place], [place] Hematocrit (Bld) [Volume fraction] 29.2 % Low 35.0-47.0 [facility] Comment on above: Performed By: #### C OVID #### [address] [place], [place] Hemoglobin (Bld) [Mass/Vol] 9.6 g/dL Low 11.7-16.0 [facility] Comment on above: Performed By: #### C OVID #### [facility] [address] [place], [place] Lymphocytes (Bld) [#/Vol] 1.2 10*3/uL Normal 1.0-4.3 [facility] Comment on above: Performed By: #### C OVID #### [facility] [address] [place], [place] Lymphocytes/100 WBC (Bld) 9.6 % Low 20.0-40.0 [facility] Comment on above: Performed By: #### C OVID #### [address] [place], [place] MCH (RBC) [Entitic mass] 31.3 pg Normal 26.0-34.0 [facility] Comment on above: Performed By: #### C OVID #### [address] [place], [place] MCHC 33.0 % Normal 32.0-36.0 [facility] Comment on above: Performed By: #### C OVID #### [address] [place], [place] MCV (RBC) [Entitic vol] 94.6 fL Normal 79.0-98.0 [facility] Comment on above: Performed By: #### C OVID #### [address] [place], [place] Monocytes (Bld) [#/Vol] 0.9 10*3/uL High 0.0-0.8 [facility] Comment on above: Performed By: #### C OVID #### [address] [place], [place] Monocytes/100 WBC (Bld) 7.7 % Normal 2.0-10.0 [facility] Comment on above: Performed By: #### C OVID #### [address] [place], [place] Platelet mean volume (Bld) [Entitic vol] 8.2 fL Normal 7.4-10.4 [facility] Comment on above: Performed By: #### C OVID #### [address] [place], [place] Platelets (Bld) [#/Vol] 214 10*3/uL Normal 140-440 [facility] Comment on above: Performed By: #### C OVID #### [address] [place], [place] RBC (Bld) [#/Vol] 3.08 10*6/uL Low 3.80-5.20 [facility] Comment on above: Performed By: #### C OVID #### [address] WBC (Bld) [#/Vol] 12.4 10*3/uL High 3.6-10.7 [facility] Comment on above: Performed By: #### C OVID #### [address] [place] [address] Basic Metabolic Panelon 02-2 Anion gap [Moles/Vol] 3 mmol/L Normal 3-13 [facility] Comment on above: Performed By: #### P T/AP, BMP3, HEMDF #### [address] [place] [address] Calcium [Mass/Vol] 9.2 mg/dL Normal 8.4-10.4 [facility] Comment on above: Performed By: #### P T/AP, BMP3, HEMDF #### [address] [place], [place] CO2 [Moles/Vol] 24 mmol/L Normal 22-30 [facility] Comment on above: Performed By: #### P T/AP, BMP3, HEMDF #### [address] [place], [place] Glucose [Mass/Vol] 134 mg/dL High 70-100 [facility] Comment on above: Performed By: #### P T/AP, BMP3, HEMDF #### [address] [place], [place] Urea nitrogen [Mass/Vol] 16 mg/dL Normal 9-20 [facility] Comment on above: Performed By: #### P T/AP, BMP3, HEMDF #### [address] [place], [place] Creatinine [Mass/Vol] 0.48 mg/dL Low 0.52-1.25 [facility] Comment on above: Performed By: #### P T/AP, BMP3, HEMDF #### [address] [place], [place] GFR/1.73 sq M.predicted among blacks MDRD (S/P/Bld) [Vol rate/Area] mL/min/{1.73_m2} Normal >60 [facility] Comment on above: Performed By: #### P T/AP, BMP3, HEMDF #### [address] [place], [place] GFR/1.73 sq M.predicted among non-blacks MDRD (S/P/Bld) [Vol rate/Area] 89.7 mL/min/{1.73_m2} Normal >60 [facility] Comment on above: Result Comment: KDIG O guidelines provide the following GFR categories: Stage GFR(ml/min/1.73 m2) Terms G1 >=90 Normal or high G2 60-89 Mildly decreased* G3a 45-59 Mildly to moderately decreased G3b 30-44 Moderately to severely decreased G4 15-29 Severely decreased G5 <15 Kidney failure *Relative to young adult level. In the absence of evidence of kidney damage, neither GFR category G1 nor G2 fulfill the criteria for CKD. The CKD-EPI equation is validated in individuals 18 years of age and older. Currently the best equation for estimating glomerular filtration rate (GFR) from serum creatinine in children is the Bedside Mckenzie equation. It is less accurate in patients with extremes of muscle mass, restriction of dietary protein, ingestion of creatine, extra-renal metabolism of creatinine, or treatment with medications that affect renal tubular creatinine secretion. Performed By: #### P T/AP, BMP3, HEMDF #### [facility] [address], [place] Chloride [Moles/Vol] 107 mmol/L Normal 98-107 [facility] Comment on above: Performed By: #### P T/AP, BMP3, HEMDF #### [facility] [address], [place] Potassium [Moles/Vol] 4.5 mmol/L Normal 3.5-5.1 [facility] Comment on above: Result Comment: Slig htly hemolysed, interpret with caution. Performed By: #### P T/AP, BMP3, HEMDF #### [facility] [address], [place] Sodium [Moles/Vol] 133 mmol/L Low 135-145 [facility] Comment on above: Performed By: #### P T/AP, BMP3, HEMDF #### [facility] [address], [place] Anion gap [Moles/Vol] 3 mmol/L 3 - 13 mmol/L [facility] Calcium [Mass/Vol] 9.2 mg/dL 8.4 - 10. 4 mg/dL [facility] Chloride [Moles/Vol] 107 mmol/L 98 - 10 7 mmol/L [facility] CO2 [Moles/Vol] 24 mmol/L 22 - 30 mmol/L [facility] Creatinine [Mass/Vol] 0.48 mg/dL Low 0.52 - 1.25 mg/dL [facility] EGFR IF NonAfrican Central African 89.7 mL/min >60 [facility] Comment on above: KDIGO guidelines pro vide the following GFR categories: Stage GFR(ml/min/1.73 m2) Terms G1 >=90 Normal or high G2 60-89 Mildly decreased* G3a 45-59 Mildly to moderately decreased G3b 30-44 Moderately to severely decreased G4 15-29 Severely decreased G5 <15 Kidney failure *Relative to young adult level. In the absence of evidence of kidney damage, neither GFR category G1 nor G2 fulfill the criteria for CKD. The CKD-EPI equation is validated in individuals 18 years of age and older. Currently the best equation for estimating glomerular filtration rate (GFR) from serum creatinine in children is the Bedside Mckenzie equation. It is less accurate in patients with extremes of muscle mass, restriction of dietary protein, ingestion of creatine, extra-renal metabolism of creatinine, or treatment with medications that affect renal tubular creatinine secretion. GFR/1.73 sq M.predicted among blacks MDRD (S/P/Bld) [Vol rate/Area] mL/min/{1.73_m2} >60 mL/min [facility] Glucose [Mass/Vol] 134 mg/dL High 70 - 100 mg/dL [facility] Interpretation and review of laboratory results Abnormal [facility] Potassium [Moles/Vol] 4.5 mmol/L 3.5 - 5.1 mmol/L [facility] Comment on above: Slightly hemolysed, interpret with caution. Sodium [Moles/Vol] 133 mmol/L Low 135 - 145 mmol/L [facility] Urea nitrogen (BldV) [Mass/Vol] 16 mg/dL 9 - 20 mg/dL [facility] Test [facility] [id number] [place] [address] LAB [facility] CBC with Auto Differentialon 09-25-2021 Absolute Baso # 0.0 10*3/uL 0.0 - 0.2 10*3/uL [facility] Absolute Neut # 7.7 10*3/uL High 1.8 - 7.0 10*3/uL [facility] Basophils/100 WBC (Bld) 0.3 % 0.0 - 2.0 % [facility] Eosinophils (Bld) [#/Vol] 0.0 10*3/uL 0.0 - 0.5 10*3/uL [facility] Eosinophils/100 WBC (Bld) 0.2 % Low 1.0 - 6.0 % [facility] Granulocytes/100 WBC (Bld) 73.6 % 40.0 - 80.0 % [facility] Hematocrit (Bld) [Volume fraction] 37.1 % 35.0 - 47.0 % [facility] Hemoglobin.gastrointesti nal spec 1 Ql (Stl) 12.4 g/dL 11.7 - 16.0 g/dL [facility] Interpretation and review of laboratory results Abnormal [facility] Lymphocytes (Bld) [#/Vol] 2.0 10*3/uL 1.0 - 4.3 10*3/uL [facility] Lymphocytes/100 WBC (Bld) 19.0 % Low 20.0 - 40.0 % [facility] MCH (RBC) [Entitic mass] 31.4 pg 26. 0 - 34.0 pg [facility] MCHC (RBC) [Mass/Vol] 33.3 % 32.0 - 36.0 % [facility] MCV (RBC) [Entitic vol] 94.4 fL 79.0 - 98.0 fL [facility] Monocytes (Bld) [#/Vol] 0.7 10*3/uL 0.0 - 0.8 10*3/uL [facility] Monocytes/100 WBC (Bld) 6.9 % 2.0 - 10.0 % [facility] Platelet distribution width (Bld) [Ratio] 14.6 % High 11.5 - 14.5 % [facility] Platelet mean volume (Bld) [Entitic vol] 8.6 fL 7.4 - 10.4 fL [facility] Platelets (Bld) [#/Vol] 286 10*3/uL 140 - 440 10*3/uL [facility] RBC (Bld) [#/Vol] 3.93 10*6/uL 3.80 - 5.2 0 10*6/uL [facility] WBC (Bld) [#/Vol] 10.5 10*3/uL 3.6 - 10.7 10*3/uL [facility] Test Performed by [facility], [address] [place] [id number] [facility] CR Femur 2+ Views Lefton CR Femur 2+ Views Left Patient Name: ADORE DIAZ Diagnostic Radiology ACCESSION EXAM DATE/TIME PROCEDURE ORDERING PROVIDER [id number] 09/25/2021 11:54 EST CR Femur 2+ Views Left n MD RUBIA, [place] CPT code 86932 Reason For Exam (CR Femur 2+ Views Left n) s/p ORIF L distal femur Report CLINICAL INFORMATION: Prosthetic left distal femur fracture. Status post ORIF. Left femur, portable, 1144: Portable AP and lateral views which include the hip and knee are compared to the examination of the previous day. There has been ORIF of a comminuted periprosthetic fracture of the distal humeral metadiaphysis using a long lateral orthopedic blade plate with multiple transfixing screws. The plate extends the length of the femoral diaphysis and overlaps with the stem of the left hip arthroplasty. There is near-anatomic alignment of the lateral fracture fragments. There is approximately 1.4 cm of medial displacement of the medial distal fracture fragment similar to the prior examination. No other changes.. IMPRESSION: Status post ORIF of comminuted periprosthetic distal left femur fracture as detailed above. Report Dictated on Final Dictated: 09/25/2021 11:56 am Dictating Physician: MD GIBBONS HARLAN Signed Date and Time: 09/25/2021 11:59 am Signed by: MD GIBBONS HARLAN Transcribed Date and Time: 09/25/2021 11:56 Normal [facility] ED Provider Noteon ED Provider Note Emergency Department Encounter [facility] H6 TELEMETRY Patient: Adore Walter : 1935 Date of Evaluation: 09/24/2021 ED Supervising Physician: Jannette Field MD I independently examined and evaluated Adore Walter. In brief, Adore Walter is a 86 y.o. female the past medical history significant for COPD and high cholesterol with hypertension who lives at home that presents to the emergency department as a transfer from [facility] for left hip pain noted to have a fracture of the left femur. Patient continues to endorse pain on the left side. She states pain started after falling. She denies any trauma to the head. Patient states she lost her balance and fell. She denies any blood thinners. She denies loss of consciousness. Patient also denies any chest pain, lightheadedness, dizziness, shortness of breath, abdominal pain or nausea and vomiting after the pain. She also denies any hip pain. Focused exam: Hkj-plt-eopggocly in no acute distress. Alert and oriented X 3. Lungs clear to auscultation bilaterally with no wheezes or crackles appreciated. Heart rate and rhythm regular with no murmurs. Abdomen soft nontender nondistended with positive bowel sounds. No edema appreciated on the lower extremities bilaterally. Patient with tenderness palpation of the left hip. Brief ED course/MDM: ECG with normal sinus rhythm with no ST elevations or depressions concerning for STEMI. Work-up significant for left midshaft fracture with no other acute findings. Patient with hyponatremia with a sodium of 133, no renal function impairment, no leukocytosis and no anemia. Upon arrival to the department orthopedic surgery was consulted to evaluate the patient. They evaluated the patient at bedside. They recommended medical admission for surgery tomorrow. Discussed plan for admission with patient. Patient agreeable with plan. Discussed with internal medicine who accepted patient for admission. Admitted in stable condition. All diagnostic, treatment, and disposition decisions were made by myself in conjunction with the Resident. I also supervised kang portions of any procedures performed by the Resident. For all further details of the patient's emergency department visit, please see their documentation. (Please note that portions of this note may have been completed with a voice recognition program. Efforts were made to edit the dictations but occasionally words are mis-transcribed.) Jannette Field MD [employer] Jannette Field MD 09/25/21 0548 [facility] ED Provider Note [facility] EMERGENCY DEPT EMERGENCY DEPARTMENT ENCOUNTER Pt Name: Adore Walter Birthdate 1935 Date of evaluation: 09/24/2021 Provider: SHAYLEE ARAUJO MD CHIEF COMPLAINT Chief Complaint Patient presents with ? Hip Pain L HISTORY OF PRESENT ILLNESS (Location/Symptom, Timing/Onset, Context/Setting, Quality, Duration, Modifying Factors, Severity) Note limiting factors. I wore a kn95 mask for the entirety of this encounter. Does this patient come from an ECF, SNF, Rehab, Usp or other Congregate setting: no (If yes to above patient needs a Covid-19 test) HPI Adore Walter is a 86 y.o. female who presents to the emergency department following a fall getting out of the car. Patient slipped and fell into ditch she denies any head injury. Patient is having severe sharp pain just above her left knee. She was rushed to [place] emergency department for evaluation. X-rays showed fracture of the distal femur just proximal to the arthroplasty with some medial angulation and impaction. Patient was then transferred to [facility] ED and evaluated by orthopedic surgery with plans for surgery Nursing Notes were reviewed. REVIEW OF SYSTEMS (2+ for level 4; 10+ for level 5) Review of Systems Constitutional: Negative for activity change, chills, fatigue and fever. Respiratory: Negative for chest tightness and shortness of breath. Cardiovascular: Negative for chest pain. Gastrointestinal: Negative for abdominal pain, constipation, nausea and vomiting. Genitourinary: Negative for difficulty urinating. Musculoskeletal: Positive for joint swelling. Negative for arthralgias and back pain. Left leg pain Skin: Negative for rash. Neurological: Negative for dizziness, weakness and light-headedness. Psychiatric/Behavioral : The patient is not nervous/anxious. PAST MEDICAL HISTORY Past Medical History: Diagnosis Date ? Chronic airway obstruction, not elsewhere classified ? Essential hypertension 12/14/2020 ? Hx of blood clots lower extremity- over 50 yrs ago ? Hydronephrosis BOTH KIDNEYS AND SCHEDULED FOR THE PROCEDURE / SURGERY ON 01/03/2019 ? Hyperlipidemia ? Osteoarthrosis, unspecified whether generalized or localized, unspecified site ? Osteoporosis, unspecified ? Skin cancer skin- L&R arms,face, bilat legs, back SURGICAL HISTORY Past Surgical History: Procedure Laterality Date ? APPENDECTOMY ? BLADDER SUSPENSION LONG TIME AGO AT [facility] ? COLONOSCOPY ? EYE SURGERY Bilateral cataracts ? FRACTURE SURGERY Right right hip ORIF ? HYSTERECTOMY JAZMYNE with BSO ? JOINT REPLACEMENT bilateral knees IN [place] ? JOINT REPLACEMENT Left Left hip AT [facility] ? LARYNGOSCOPY 04/18. benign polyp ? MICROLARYNGOSCOPY W BIOPSY 08/31/2019 with excision lesion vocal cord DR VARGAS ? OTHER SURGICAL HISTORY 06/11/2021 Excision Left Leg Lesion with Intermediate Closure, Excision Left Neck Lesion with Intermediate Closure. Dr [place] ? SKIN BIOPSY ? TONSILLECTOMY CURRENT MEDICATIONS Previous Medications ACETAMINOPHEN (TYLENOL) 500 MG TABLET Take 500 mg by mouth every 6 hours as needed for Pain ALENDRONATE (FOSAMAX) 70 MG TABLET Take 1 tablet by mouth every 7 days CARVEDILOL (COREG) 12.5 MG TABLET Take 1 tablet by mouth daily CEFUROXIME (CEFTIN) 250 MG TABLET Take 1 tablet by mouth 2 times daily for 10 days HANDICAP PLACARD MISC 1 each by Does not apply route daily LISINOPRIL (PRINIVIL;ZESTRIL) 20 MG TABLET Take 1 tablet by mouth daily SIMVASTATIN (ZOCOR) 10 MG TABLET Take 1 tablet by mouth nightly ALLERGIES Patient has no known allergies. FAMILY HISTORY Family History Problem Relation Age of Onset ? Cancer Father skin cancer SOCIAL HISTORY Social History Socioeconomic History ? Marital status: Spouse name: None ? Number of children: None ? Years of education: None ? Highest education level: None Occupational History ? Occupation: retired Tobacco Use ? Smoking status: Former Smoker Packs/day: 0.50 Years: 35.00 Pack years: 17.50 Types: Cigarettes Start date: 1956 Quit date: 1991 Years since quittin.1 ? Smokeless tobacco: Never Used Vaping Use ? Vaping Use: Never used Substance and Sexual Activity ? Alcohol use: Yes Alcohol/week: 0.0 standard drinks Comment: obdulia baileyvahid ? Drug use: Never Comment: Caffeine use: up to 4 cups of coffee per day ? Sexual activity: None Other Topics Concern ? None Social History Narrative ? None Social Determinants of Health Financial Resource Strain: Low Risk ? Difficulty of Paying Living Expenses: Not hard at all Food Insecurity: No Food Insecurity ? Worried About Running Out of Food in the Last Year: Never true ? Ran Out of Food in the Last Year: Never true Transportation Needs: ? Lack of Transportation (Medical): Not on file ? Lack of Transportation (Non-Medical): Not on file Physical Activity (more content not included)... Normal [facility] EKG 12 Leadon 09-25-2021 [facility] Test Date: 2021-09-24 Pat Name: ADORE WALTER Department: 2AED Room: 05 Gender: F Patient Admitting Clerk: PRINCE : 1935 Requested By: CHI BETTS Order Number: [id number] Reading MD: Jannette Field Measurements Intervals Mcintyre Rate: 76 P: 37 IN: 144 QRS: -41 QRSD: 98 T: 26 QT: 424 QTc: 477 Interpretive Statements SINUS RHYTHM VENTRICULAR PREMATURE COMPLEX LEFT AXIS DEVIATION LEFT VENTRICULAR HYPERTROPHY Compared to ECG 05/04/2019 17:55:29 Ventricular premature complex(es) now present Electronically Signed On 09-25-2021 3:48:11 EST by Jannette WALLACE CARDIOLOGY Jannette Field MD - 09/25/[address] [facility] Test Date: 2021-09-24 Pat Name: ADORE WALTER Department: 2AED Room: 05 Gender: F Patient Admitting Clerk: PRINCE : 1935 Requested By: CHI BETTS Order Number: [id number] Reading MD: Jannette Field Measurements Intervals Mcintyre Rate: 76 P: 37 IN: 144 QRS: -41 QRSD: 98 T: 26 QT: 424 QTc: 477 Interpretive Statements SINUS RHYTHM VENTRICULAR PREMATURE COMPLEX LEFT AXIS DEVIATION LEFT VENTRICULAR HYPERTROPHY Compared to ECG 05/04/2019 17:55:29 Ventricular premature complex(es) now present Electronically Signed On 09-25-2021 3:48:11 EST by Jannette Field [facility] Work Phone: EKG 12 LeadOrdered By: Eliezer Field on 09-25-2021 [facility] Work Phone: Hemogram w/ [employer]od[employer] 09-25 Abs Baso Cnt 0.0 10*3/uL Normal 0.0-0.2 [facility] Comment on above: Performed By: #### P T/AP, BMP3, HEMDF #### [facility] [address] [place] [id number] Abs Neutrophile Cnt 7.7 10*3/uL High 1.8-7.0 [facility] Comment on above: Performed By: #### P T/AP, BMP3, HEMDF #### [address] [place] [address] [place] [address] Basophils/100 WBC (Bld) 0.3 % Normal 0.0-2.0 [facility] Comment on above: Performed By: #### P T/AP, BMP3, HEMDF #### [address] Eosinophils (Bld) [#/Vol] 0.0 10*3/uL Normal 0.0-0.5 [facility] Comment on above: Performed By: #### P T/AP, BMP3, HEMDF #### [address] Eosinophils/100 WBC (Bld) 0.2 % Low 1.0-6.0 [facility] Comment on above: Performed By: #### P T/AP, BMP3, HEMDF #### [address] Erythrocyte distribution width (RBC) [Ratio] 14.6 % High 11.5-14.5 [facility] Comment on above: Performed By: #### P T/AP, BMP3, HEMDF #### [address] [phone] Granulocytes/100 WBC (Bld) 73.6 % Normal 40.0-80.0 [facility] Comment on above: Performed By: #### P T/AP, BMP3, HEMDF #### [address] Hematocrit (Bld) [Volume fraction] 37.1 % Normal 35.0-47.0 [facility] Comment on above: Performed By: #### P T/AP, BMP3, HEMDF #### [address] Hemoglobin (Bld) [Mass/Vol] 12.4 g/dL Normal 11.7-16.0 [facility] Comment on above: Performed By: #### P T/AP, BMP3, HEMDF #### [address] Lymphocytes (Bld) [#/Vol]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 2+ Views Left n [id number] MURPHY CPT code 87935 Reason For Exam (CR Femur 2+ Views Left n) fall ,pain Report LEFT FEMUR, AP & LATERAL: INDICATION: Pain after fall COMPARISON: No previous studies are available for comparison. AP and lateral views of the left femur which include the hip and the knee demonstrate a comminuted spiral fracture of the mid to distal femur with the inferior aspect of the fracture fragments extending to the knee prosthesis. The fracture lines do not appear to extend to the femoral component of the hip arthroplasty. No osseous erosion or periosteal reaction is seen. No osteolytic or osteoblastic osseous densities are identified. Extensive vascular calcifications of the thigh are noted. IMPRESSION: Spiral fracture of the mid to distal femur with comminution and extension of the fracture lines to the femoral component of the knee prosthesis. Report Dictated on --- Final --- Dictating Physician: DO MERCADO ALFRED Signed Date and Time: 09/24/2021 7:07 pm Signed by: DO MERCADO ALFRED Transcribed Date and Time: 09/24/2021 7:08 [facility] Serjio Mercado DO - 09/24/2021 Patient Name: ADORE WALTER Diagnostic Radiology ACCESSION EXAM DATE/TIME PROCEDURE ORDERING PROVIDER [id number] 09/24/2021 19:01 EST CR Femur 2+ Views Left n [id number] MURPHYHEL CPT code 76866 Reason For Exam (CR Femur 2+ Views Left n) fall ,pain Report LEFT FEMUR, AP & LATERAL: INDICATION: Pain after fall COMPARISON: No previous studies are available for comparison. AP and lateral views of the left femur which include the hip and the knee demonstrate a comminuted spiral fracture of the mid to distal femur with the inferior aspect of the fracture fragments extending to the knee prosthesis. The fracture lines do not appear to extend to the femoral component of the hip arthroplasty. No osseous erosion or periosteal reaction is seen. No osteolytic or osteoblastic osseous densities are identified. Extensive vascular calcifications of the thigh are noted. IMPRESSION: Spiral fracture of the mid to distal femur with comminution and extension of the fracture lines to the femoral component of the knee prosthesis. Report Dictated on --- Final --- Dictating Physician: DO MERCADO ALFRED Signed Date and Time: 09/24/2021 7:07 pm Signed by: DO MERCADO ALFRED Transcribed Date and Time: 09/24/2021 7:08 [facility] Work Phone: XR FEMUR LEFT (MIN 2 VIEWS)O rdered By: Serjio Mercado on 09-24-2021 [facility] Work Phone: XR HIP LEFT (2-3 VIEWS)on [facility]: [id number] ACCESSION EXAM DATE/TIME PROCEDURE ORDERING PROVIDER [id number] 09/24/2021 19:01 EST CR Hip w/ Pelvis 2 or 3 [id number] -BRENT AMAYA Views Left n CPT code 30790 Reason For Exam (CR Hip w/ Pelvis 2 or 3 Views Left n) fall ,pain Report LEFT HIP & PELVIS: INDICATION: Pain after fall COMPARISON: 07/15/2018 A frontal view of the pelvis and frontal and frog leg views of the left hip were obtained. The bone density appears normal. There are no fractures or dislocations. A total left hip arthroplasty is present. On the cross prior lateral view there is mild lucency about the acetabular component, raising the question of some degree of loosening. Distal to the femoral component is a partially visualized fracture of the mid shaft of the left femur. There are no significant soft tissue abnormalities. IMPRESSION: Questionable loosening of the acetabular component of the left hip prosthesis. Partially imaged is a fracture of the midshaft of the left femur, distal to the tip of the femoral component. Report Dictated on --- Final --- Dictating Physician: DO MERCADO ALFRED Signed Date and Time: 09/24/2021 7:15 pm Signed by: DO MERCADO ALFRED Transcribed Date and Time: 09/24/2021 7:16 Serjio Quintero DO - 09/24/2021 Patient Name: ADORE WALTER Diagnostic Radiology ACCESSION EXAM DATE/TIME PROCEDURE ORDERING PROVIDER [id number] 09/24/2021 19:01 EST CR Hip w/ Pelvis 2 or 3 [id number] -BRENT AMAYA Views Left n CPT code 81618 Reason For Exam (CR Hip w/ Pelvis 2 or 3 Views Left n) fall ,pain Report LEFT HIP & PELVIS: INDICATION: Pain after fall COMPARISON: 07/15/2018 A frontal view of the pelvis and frontal and frog leg views of the left hip were obtained. The bone density appears normal. There are no fractures or dislocations. A total left hip arthroplasty is present. On the cross prior lateral view there is mild lucency about the acetabular component, raising the question of some degree of loosening. Distal to the femoral component is a partially visualized fracture of the mid shaft of the left femur. There are no significant soft tissue abnormalities. IMPRESSION: Questionable loosening of the acetabular component of the left hip prosthesis. Partially imaged is a fracture of the midshaft of the left femur, distal to the tip of the femoral component. Report Dictated on --- Final --- Dictating Physician: DO MERCADO ALFRED Signed Date and Time: 09/24/2021 7:15 pm Signed by: DO MERCADO ALFRED Transcribed Date and Time: 09/24/2021 7:16 [facility] Work Phone: [facility] Work Phone: XR KNEE LEFT (3 VIEWS)on Patient Name: ADORE WALTER Diagnostic Radiology ACCESSION EXAM DATE/TIME PROCEDURE ORDERING PROVIDER [id number] 09/24/2021 19:01 EST CR Knee 3 Views Left [id number] MASTERS CPT code 39085 Reason For Exam (CR Knee 3 Views Left) fall, pain Report LEFT KNEE: CLINICAL INDICATION: Fall, pain. TECHNIQUE: AP, lateral and tunnel COMPARISON: 05/04/2019 FINDINGS: Status post left total knee arthroplasty. There is a comminuted fracture of the distal femur just proximal to the arthroplasty with some medial angulation and impaction. There is surrounding soft tissue swelling and a suprapatellar effusion. Report Dictated on --- Final --- Dictating Physician: MD ROGER NICHOLAS Signed Date and Time: 09/24/2021 7:13 pm Signed by: MD ROGER NICHOLAS Transcribed Date and Time: 09/24/2021 7:14 [facility] Romeo Roger MD - 09/24/2021 [facility]: [id number] Radiology ACCESSION EXAM DATE/TIME PROCEDURE ORDERING PROVIDER [id number] 09/24/2021 19:01 EST CR Knee 3 Views Left [id number] MASTERS CPT code 21534 Reason For Exam (CR Knee 3 Views Left) fall, pain Report LEFT KNEE: CLINICAL INDICATION: Fall, pain. TECHNIQUE: AP, lateral and tunnel COMPARISON: 05/04/2019 FINDINGS: Status post left total knee arthroplasty. There is a comminuted fracture of the distal femur just proximal to the arthroplasty with some medial angulation and impaction. There is surrounding soft tissue swelling and a suprapatellar effusion. Report Dictated on --- Final --- Dictating Physician: MD ROGER NICHOLAS Signed Date and Time: 09/24/2021 7:13 pm Signed by: MD ROGER NICHOLAS Transcribed Date and Time: 09/24/2021 7:14 [facility] Work Phone: XR KNEE LEFT (3 VIEWS)Ordere d By: Romeo Rgoer on 09-24-2021 [facility] Work Phone: OPERATIVE REPORTon [facility] Surgical Pathologyon 021 Surgical Pathology [id number] [facility] PATHOLOGY AND LABORATORY MEDICINE [address] [facility] [place] [address] Fax - FINAL SURGICAL PATHOLOGY REPORT NAME: ADORE WALTER : 1935 86 Y [address] MANJULA NO.: [id number] LOCATION: [facility] PROCEDURE 06/11/2021 DATE: SURGEON: NOHEMI CUBA M.D. RECEIVED 06/11/2021 DATE: ATTENDING: NOHEMI CUBA M.D. REPORT DATE: 06/13/2021 COPIES TO: DIAGNOSIS: A. SKIN, LEFT LEG, EXCISION - SUPERFICIALLY INVASIVE, WELL-DIFFERENTIATED SQUAMOUS CELL CARCINOMA, KERATOACANTHOMA-LIKE TYPE -MARGIN OF EXCISION IS NEGATIVE FOR TUMOR -BACKGROUND ACTINICALLY DAMAGED SKIN B. 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 Jerzy JUNG/ERICH Signature> DAVE WALTERS M.D. CLINICAL INFORMATION: D48.5 SPECIMEN: (A) LESION, BIOPSY, NOS (B) LESION, BIOPSY, NOS GROSS DESCRIPTION: THESE ARE OUT OF ORDER ON THE REQUISITION A. Received in formalin labeled "left leg lesion" is an elliptical-shaped segment of wrinkled, light tafoya skin and subcutaneous tissue measuring 5.8 x 1.7 x 1 cm in depth. The skin surface is wrinkled and rough. There is a raised, firm, yellow-tafoya area horn-like, centrally located measuring up to 0.5 cm in height. The area surrounding this is white and circled in black ink. This area measures 2 x 1.5 cm and appears to extend within 0.1 cm of the nearest margin. There is a short suture indicating the superior margin and a long suture indicating the lateral margin. The medial half is inked orange. The superior lateral is inked black. The inferior lateral is inked blue. The tips are submitted into cassette one. The remaining tissue is serially sectioned with most of the horn-like area in cassette five and entirely submitted in eight cassettes. B. Received in formalin labeled "left neck lesion" is a shave biopsy of tafoya skin measuring 0.7 x 0.6 cm. There is a horn-like structure protruding from the surface which is yellow-tafoya and firm measuring 0.9 cm in height. The tissue is bisected and submitted into one cassette. BSC/JESIF Disclaimer: The following statement applies to all immunohistochemistry, in situ hybridization, molecular studies, and immunofluorescence testing. The use of one or more reagents in the above tests is regulated as an analyte specific reagent (ASR). These tests were developed and their performance characteristics determined by the clinical laboratories of [facility]. They have not been cleared by the US Food and Drug Administration (FDA). The FDA has determined that such clearance or approval is not necessary. All the above immunostains were performed on paraffin embedded tissue. Appropriate positive and negative controls (where applicable) were run in parallel with the patient's specimen; these controls showed expected staining pattern, with acceptable intensity of staining. Immunohistochemical assays have not been validated on decalcified tissues. Results should be interpreted with caution given the raised possibility of false negativity on decalcified specimens. Case reviewed at [place] [facility] [address] [address]. DEPARTMENT OF PATHOLOGY AND LABORATORY MEDICINE [place], [place] [address] [email or web address] Normal [facility] NM Myocardial Perf Imaging M ulti Specton 01-23-2021 NM Myocardial Perf Imaging Multi Spect Patient Name: ADORE WALTER Nuclear Medicine ACCESSION EXAM DATE/TIME PROCEDURE ORDERING PROVIDER [id number] 01/23/2021 15:52 EDT NM Myocardial Perf MD RANDOLPH, HOLLAND Imaging Multi Spect CPT code [id number] Reason For Exam (NM Myocardial Perf Imaging Multi Spect) Chest pain Report Nuclear Stress Myocardial Perfusion Study Regadenoson Protocol Gated SPECT Patient: Adore Walter Height: (61 in) Weight: (125 lb) : 1935 Age: 85 Gender: F Study Date: 01/23/2021 Accession#: Patient Room #: *ORDERING PHYSICIAN: * Holland Leiva *SUPERVISING PHYSICIAN: * Edgardo Lopez *RN: Sneha Christine *NUCLEAR TECH: * Shar Ferrer V. *READING PHYSICIAN: * Anjel Olmstead MD ----- Indications: EKG abnormalities. ----- Summary: 1. Normal study after pharmacologic vasodilation. 2. Low risk/extent of ischemia. 3. Findings suggest a low risk for cardiovascular events. 4. Stress ECG conclusions: The stress ECG is negative for ischemia. ----- History: The last beta maribel was taken by the patient on 01/23/2021 07:00 AM. Hypertension treated. Tobacco use former. Aortic aneurysm. Medications: Carvedilol (Coreg). Simvastatin (Zocor). Lisinopril (Zestril). Allergies: No known allergies. Dyslipidemia. Chronic obstructive pulmonary disease. Patient is NPO per policy. No caffeine per policy. Medication list reviewed with patient and no contraindicated medications have been taken. ----- Study data: The patient's lungs are clear to auscultation. Heart Nuclear Medicine Report auscultation by RN revealed a regular rate and rhythm. Pre pain assessment is 0 out of 10. Post pain assessment is 0 out of 10. Patient status: Outpatient. Gated SPECT; rest/stress. One-day Sestamibi. Consent: The procedure was reviewed with the patient and the patient voices understanding. Study completion: The patient tolerated the procedure well. There were no complications. Administered medications: Lexiscan. Discharge: Discharge instruction given. The patient was discharged to home while ambulatory. ----- Procedure data: Initial setup. The patient was brought to the laboratory. A baseline ECG was recorded. Surface ECG leads and blood pressure measurements were monitored. 1 attempts for IV access. IV access per Lissy Pereyra RN. IV access verified 22G L AC. IV patent, site benign. IV discontinued, site benign. Regadenoson stress test. Stress testing was performed, with regadenoson by intravenous bolus at one minute into the protocol, for a total dose of 0.4mgover 10.00 sec, followed by a 5 ml saline flush. Exercise for 4 minutes completed by low level exercise. The infusion was terminated due to end of protocol. A pharmacologic approach was used because the patient was physically unable to exercise. ----- Baseline ECG: Normal sinus rhythm. Stress protocol: + +--+---- --------+ + +Stage +HR+BP +Symptoms + + +--+---- --------+ + +Rest +64+170/75 (107)+No symptoms.+ + +--+---- --------+ + +Peak stress +80+139/73 (95) +No symptoms.+ + +--+---- --------+ + +Recovery +76+149/70 (96) +No symptoms.+ + +--+---- --------+ + +Late recovery+75+142/67 (92) +No symptoms.+ + +--+---- --------+ + Stress results: Peak heart rate during stress was 80 bpm. (58% of maximal predicted heart rate). The maximal predicted heart rate was 137 bpm.The target heart rate was not achieved. The heart rate response to stress is normal. There is an appropriate response to stress. The rate-pressure product for the peak heart rate and blood pressure was 19740 mm Hg/min. Stress testing did not produce any symptoms suggestive of coronary artery disease. Stress ECG: There was no ischemic ST depression. There are no stress arrhythmias or conduction abnormalities. Isolated ventricular ectopy. The stress ECG is negative for ischemia. Isotope administration: + +------ + + +Stage +Rest +Stress + + +------ + + +Agent +Tc-99m sestamibi+Tc-99m sestamibi + + +------ + + +Injected dose +6.7 mCi +21.1 mCi + + +------ + + +Date +01/23/2021 +01/23/2021 + + +------ + + +Injection time+12:41 (more content not included)... Normal [facility] NM Myocardial Spect Rest Exe rcise or RxOrdered By: Holland Leiva on 01-23-2021 Nuclear Stress Myocardial Perfusion Study Regadenoson Protocol Gated SPECT Patient: Adore Walter Height: (61 in) Weight: (125 lb) : 1935 Age: 85 Gender: F Study Date: 01/23/2021 Accession#: Patient Room #: *ORDERING PHYSICIAN: Holland Alfonso *SUPERVISING PHYSICIAN: Edgardo Quinn *RN: Sneha Christine *NUCLEAR TECH: * Shar Ferrer V. *READING PHYSICIAN: * Anjel Olmstead MD ----- Indications: EKG abnormalities. ----- Summary: 1. Normal study after pharmacologic vasodilation. 2. Low risk/extent of ischemia. 3. Findings suggest a low risk for cardiovascular events. 4. Stress ECG conclusions: The stress ECG is negative for ischemia. ----- History: The last beta maribel was taken by the patient on 01/23/2021 07:00 AM. Hypertension treated. Tobacco use former. Aortic aneurysm. Medications: Carvedilol (Coreg). Simvastatin (Zocor). Lisinopril (Zestril). Allergies: No known allergies. Dyslipidemia. Chronic obstructive pulmonary disease. Patient is NPO per policy. No caffeine per policy. Medication list reviewed with patient and no contraindicated medications have been taken. ----- Study data: The patient's lungs are clear to auscultation. Heart auscultation by RN revealed a regular rate and rhythm. Pre pain assessment is 0 out of 10. Post pain assessment is 0 out of 10. Patient status: Outpatient. Gated SPECT; rest/stress. One-day Sestamibi. Consent: The procedure was reviewed with the patient and the patient voices understanding. Study completion: The patient tolerated the procedure well. There were no complications. Administered medications: Lexiscan. Discharge: Discharge instruction given. The patient was discharged to home while ambulatory. ----- Procedure data: Initial setup. The patient was brought to the laboratory. A baseline ECG was recorded. Surface ECG leads and blood pressure measurements were monitored. 1 attempts for IV access. IV access per Lissy Pereyra RN. IV access verified 22G L AC. IV patent, site benign. IV discontinued, site benign. Regadenoson stress test. Stress testing was performed, with regadenoson by intravenous bolus at one minute into the protocol, for a total dose of 0.4mgover 10.00 sec, followed by a 5 ml saline flush. Exercise for 4 minutes completed by low level exercise. The infusion was terminated due to end of protocol. A pharmacologic approach was used because the patient was physically unable to exercise. ----- Baseline ECG: Normal sinus rhythm. Stress protocol: + +--+---- --------+ + +Stage +HR+BP +Symptoms + + +--+---- --------+ + +Rest +64+170/75 (107)+No symptoms.+ + +--+---- --------+ + +Peak stress +80+139/73 (95) +No symptoms.+ + +--+---- --------+ + +Recovery +76+149/70 (96) +No symptoms.+ + +--+---- --------+ + +Late recovery+75+142/67 (92) +No symptoms.+ + +--+---- --------+ + Stress results: Peak heart rate during stress was 80 bpm. (58% of maximal predicted heart rate). The maximal predicted heart rate was 137 bpm.The target heart rate was not achieved. The heart rate response to stress is normal. There is an appropriate response to stress. The rate-pressure product for the peak heart rate and blood pressure was 25569 mm Hg/min. Stress testing did not produce any symptoms suggestive of coronary artery disease. Stress ECG: There was no ischemic ST depression. There are no stress arrhythmias or conduction abnormalities. Isolated ventricular ectopy. The stress ECG is negative for ischemia. Isotope administration: + +------ + + +Stage +Rest +Stress + + +------ + + +Agent +Tc-99m sestamibi+Tc-99m sestamibi + + +------ + + +Injected dose +6.7 mCi +21.1 mCi + + +------ + + +Date +01/23/2021 +01/23/2021 + + +------ + + +Injection time+12:41 PM +01:57 PM + + +------ + (more content not included)... [employer] Work Phone: Nathan, [employer] Incoming Cardiology Results From [facility] - 01/23/2021 5:07 PM EDT Nuclear Stress Myocardial Perfusion Study Regadenoson Protocol Gated SPECT Patient: Adore Walter Height: (61 in) Weight: (125 lb) : 1935 Age: 85 Gender: F Study Date: 01/23/2021 Accession#: Patient Room #: *ORDERING PHYSICIAN: * Holland Leiva *SUPERVISING PHYSICIAN: * Edgardo Lopez *RN: Sneha Christine *NUCLEAR TECH: * Shar Ferrer V. *READING PHYSICIAN: Anjel Gonzales MD ----- Indications: EKG abnormalities. ----- Summary: 1. Normal study after pharmacologic vasodilation. 2. Low risk/extent of ischemia. 3. Findings suggest a low risk for cardiovascular events. 4. Stress ECG conclusions: The stress ECG is negative for ischemia. ----- History: The last beta maribel was taken by the patient on 01/23/2021 07:00 AM. Hypertension treated. Tobacco use former. Aortic aneurysm. Medications: Carvedilol (Coreg). Simvastatin (Zocor). Lisinopril (Zestril). Allergies: No known allergies. Dyslipidemia. Chronic obstructive pulmonary disease. Patient is NPO per policy. No caffeine per policy. Medication list reviewed with patient and no contraindicated medications have been taken. ----- Study data: The patient's lungs are clear to auscultation. Heart auscultation by RN revealed a regular rate and rhythm. Pre pain assessment is 0 out of 10. Post pain assessment is 0 out of 10. Patient status: Outpatient. Gated SPECT; rest/stress. One-day Sestamibi. Consent: The procedure was reviewed with the patient and the patient voices understanding. Study completion: The patient tolerated the procedure well. There were no complications. Administered medications: Lexiscan. Discharge: Discharge instruction given. The patient was discharged to home while ambulatory. ----- Procedure data: Initial setup. The patient was brought to the laboratory. A baseline ECG was recorded. Surface ECG leads and blood pressure measurements were monitored. 1 attempts for IV access. IV access per Lissy Pereyra RN. IV access verified 22G L AC. IV patent, site benign. IV discontinued, site benign. Regadenoson stress test. Stress testing was performed, with regadenoson by intravenous bolus at one minute into the protocol, for a total dose of 0.4mgover 10.00 sec, followed by a 5 ml saline flush. Exercise for 4 minutes completed by low level exercise. The infusion was terminated due to end of protocol. A pharmacologic approach was used because the patient was physically unable to exercise. ----- Baseline ECG: Normal sinus rhythm. Stress protocol: + +--+---- --------+ + +Stage +HR+BP +Symptoms + + +--+---- --------+ + +Rest +64+170/75 (107)+No symptoms.+ + +--+---- --------+ + +Peak stress +80+139/73 (95) +No symptoms.+ + +--+---- --------+ + +Recovery +76+149/70 (96) +No symptoms.+ + +--+---- --------+ + +Late recovery+75+142/67 (92) +No symptoms.+ + +--+---- --------+ + Stress results: Peak heart rate during stress was 80 bpm. (58% of maximal predicted heart rate). The maximal predicted heart rate was 137 bpm.The target heart rate was not achieved. The heart rate response to stress is normal. There is an appropriate response to stress. The rate-pressure product for the peak heart rate and blood pressure was 85394 mm Hg/min. Stress testing did not produce any symptoms suggestive of coronary artery disease. Stress ECG: There was no ischemic ST depression. There are no stress arrhythmias or conduction abnormalities. Isolated ventricular ectopy. The stress ECG is negative for ischemia. Isotope administration: + +------ + + +Stage +Rest +Stress + + +------ + + +Agent +Tc-99m sestamibi+Tc-99m sestamibi + + +------ + + +Injected dose +6.7 mCi +21.1 mCi + + +------ + + +Date +01/23/2021 +01/23/2021 + + +------ + + +Injection time+12:41 PM +01:57 PM + + +------ + + +Injection at + +Peak pharmacologic stress+ + +------ + + +Injected by +C Ferrer CODING COMPLIANCE SPECIALIST (more content not included)... [employer] Work Phone: [phone] [employer] Work Phone: ECHO Complete 2D W Doppler W ColorOrdered By: Chris Arora on 12-12-2020 TRANSTHORACIC ECHOCARDIOGRAM PATIENT: Adore Walter STUDY DATE: 12/12/2020 : 1935 AGE: 85 HT/WT: 154.9 cm (61 58.1 kg in) (127.7 lb) GENDER: F BP: 160 / 78 LOCATION: [facility] PATIENT Outpatient [facility] STATUS: Medical Center *ORDERING PHYSICIAN: * Chris Arora *READING PHYSICIAN: * Issa *KILN FIRER: Meli Black RDCS, MD AE, RCS ----- INDICATIONS: Bilateral Leg Edema; Ectopic cardiac beats. ----- CONCLUSIONS SUMMARY: 1. Left ventricle: The cavity size is normal. Wall thickness is mildly increased. Systolic function is mildly decreased by the biplane method of disks. The estimated ejection fraction is 48%. Hypokinesis of the inferior myocardium. 2. Mitral valve: There is trivial, less than 1+ regurgitation. 3. Aortic valve: Thickening, consistent with sclerosis. 4. Tricuspid valve: There is trivial, less than 1+ regurgitation. 5. Pulmonic valve: Structurally normal valve. 6. Aorta: The aorta is moderately dilated. The Ascending Aorta measures 4.0 cm ----- STUDY DATA: Complete transthoracic echocardiogram. Procedure: Image quality was good. M-mode, complete 2D, strain rate, complete spectral Doppler, and color flow Doppler images were acquired and archived for permanent storage and are available for subsequent review. Study status: Routine. Patient status: Outpatient. ----- FINDINGS LEFT VENTRICLE: Average LV global longitudinal strain is -15. The cavity size is normal. Wall thickness is mildly increased. Systolic function is mildly decreased by the biplane method of disks. The estimated ejection fraction is 48%. Regional wall motion abnormalities: Hypokinesis of the inferior myocardium. RIGHT VENTRICLE: The cavity size is normal. Wall thickness is normal. Systolic function is normal. LEFT ATRIUM: The atrium is mildly dilated. RIGHT ATRIUM: The atrium is normal in size. MITRAL VALVE: Mildly thickened annulus. Mildly calcified leaflets. Leaflet separation is normal. Doppler: Transvalvular velocity is within the normal range. There is no evidence for stenosis. There is trivial, less than 1+ regurgitation. The valve area by pressure half-time is 2.7 cm^2. The valve area (LVOT continuity) is 2.2 cm^2. The mean diastolic gradient is 1 mm Hg. The peak diastolic gradient is 3 mm Hg. AORTIC VALVE: Mildly calcified leaflets. Thickening, consistent with sclerosis. Doppler: There is no stenosis. There is mild, 1+ regurgitation. Dimensionless index: 0.58. The valve area by the velocity-time integral method is 2.2 cm^2. The valve area index by the velocity-time integral method is 1.4 cm^2/m^2. The mean systolic gradient is 4 mm Hg. The peak systolic gradient is 8 mm Hg. The peak systolic velocity is 1.4 m/sec. TRICUSPID VALVE: Normal-sized annulus. Mildly thickened leaflets. Leaflet separation is normal. Doppler: Transvalvular velocity is within the normal range. There is no evidence for stenosis. There is trivial, less than 1+ regurgitation. PULMONIC VALVE: Structurally normal valve. Cusp separation is normal. Doppler: Transvalvular velocity is within the normal range. There is no regurgitation. AORTA: The aorta is moderately dilated. The Ascending Aorta measures 4.0 cm PERICARDIUM: There is no pericardial effusion. ----- Measurements Value Reference Aortic root ID 3.2 cm <3.8 Aortic root ID, STJ, ED 3.0 cm 2.0 - 3.2 Aortic root ID/bsa, STJ, ED 1.9 cm/m^2 1.1 - 1.9 Value Reference Ascending aorta ID (H) 4.0 cm 1.9 - 3.5 Ascending aorta ID/bsa, A-P (H) 2.5 cm/m^2 1.0 - 2.2 Ascending aorta ID, max (H) 4.0 cm 1.9 - 3.5 Ascending aorta ID/bsa, max (H) 2.5 cm/m^2 1.0 - 2.2 Ascending aorta ID, A-P, S 4.0 cm Ascending aorta ID/bsa, A-P, S 2.5 cm/m^2 Left ventricle Value Reference GLS, 2D 15.12 % LV ID, ED 4.9 cm 3.8 - 5.2 LV ID, ES 3.5 cm 2.2 - 3.5 LV ID/bsa, ED (more content not included)... [employer] Work Phone: Nathan, [employer] Incoming Cardiology Results From [facility]/Mika - 12/12/2020 1:17 PM EDT TRANSTHORACIC ECHOCARDIOGRAM PATIENT: Adore Walter STUDY DATE: 12/12/2020 : 1935 AGE: 85 HT/WT: 154.9 cm (61 58.1 kg in) (127.7 lb) GENDER: F BP: 160 / 78 LOCATION: [facility] PATIENT Outpatient [facility] STATUS: Medical Center *ORDERING PHYSICIAN: * Chris Arroa *READING PHYSICIAN: * Issa *KILN FIRER: Meli Black RDCS, MD AE, [facility] ----- INDICATIONS: Bilateral Leg Edema; Ectopic cardiac beats. ----- CONCLUSIONS SUMMARY: 1. Left ventricle: The cavity size is normal. Wall thickness is mildly increased. Systolic function is mildly decreased by the biplane method of disks. The estimated ejection fraction is 48%. Hypokinesis of the inferior myocardium. 2. Mitral valve: There is trivial, less than 1+ regurgitation. 3. Aortic valve: Thickening, consistent with sclerosis. 4. Tricuspid valve: There is trivial, less than 1+ regurgitation. 5. Pulmonic valve: Structurally normal valve. 6. Aorta: The aorta is moderately dilated. The Ascending Aorta measures 4.0 cm ----- STUDY DATA: Complete transthoracic echocardiogram. Procedure: Image quality was good. M-mode, complete 2D, strain rate, complete spectral Doppler, and color flow Doppler images were acquired and archived for permanent storage and are available for subsequent review. Study status: Routine. Patient status: Outpatient. ----- FINDINGS LEFT VENTRICLE: Average LV global longitudinal strain is -15. The cavity size is normal. Wall thickness is mildly increased. Systolic function is mildly decreased by the biplane method of disks. The estimated ejection fraction is 48%. Regional wall motion abnormalities: Hypokinesis of the inferior myocardium. RIGHT VENTRICLE: The cavity size is normal. Wall thickness is normal. Systolic function is normal. LEFT ATRIUM: The atrium is mildly dilated. RIGHT ATRIUM: The atrium is normal in size. MITRAL VALVE: Mildly thickened annulus. Mildly calcified leaflets. Leaflet separation is normal. Doppler: Transvalvular velocity is within the normal range. There is no evidence for stenosis. There is trivial, less than 1+ regurgitation. The valve area by pressure half-time is 2.7 cm^2. The valve area (LVOT continuity) is 2.2 cm^2. The mean diastolic gradient is 1 mm Hg. The peak diastolic gradient is 3 mm Hg. AORTIC VALVE: Mildly calcified leaflets. Thickening, consistent with sclerosis. Doppler: There is no stenosis. There is mild, 1+ regurgitation. Dimensionless index: 0.58. The valve area by the velocity-time integral method is 2.2 cm^2. The valve area index by the velocity-time integral method is 1.4 cm^2/m^2. The mean systolic gradient is 4 mm Hg. The peak systolic gradient is 8 mm Hg. The peak systolic velocity is 1.4 m/sec. TRICUSPID VALVE: Normal-sized annulus. Mildly thickened leaflets. Leaflet separation is normal. Doppler: Transvalvular velocity is within the normal range. There is no evidence for stenosis. There is trivial, less than 1+ regurgitation. PULMONIC VALVE: Structurally normal valve. Cusp separation is normal. Doppler: Transvalvular velocity is within the normal range. There is no regurgitation. AORTA: The aorta is moderately dilated. The Ascending Aorta measures 4.0 cm PERICARDIUM: There is no pericardial effusion. ----- Measurements Value Reference Aortic root ID 3.2 cm <3.8 Aortic root ID, STJ, ED 3.0 cm 2.0 - 3.2 Aortic root ID/bsa, STJ, ED 1.9 cm/m^2 1.1 - 1.9 Value Reference Ascending aorta ID (H) 4.0 cm 1.9 - 3.5 Ascending aorta ID/bsa, A-P (H) 2.5 cm/m^2 1.0 - 2.2 Ascending aorta ID, max (H) 4.0 cm 1.9 - 3.5 Ascending aorta ID/bsa, max (H) 2.5 cm/m^2 1.0 - 2.2 Ascending aorta ID, A-P, S 4.0 cm Ascending aorta ID/bsa, A-P, S 2.5 cm/m^2 Left ventricle Value Reference GLS, 2D 15.12 % LV ID, ED 4.9 cm 3.8 - 5.2 LV ID, ES 3.5 cm 2.2 - 3.5 LV ID/bsa, ED 3.1 cm/m^2 2.3 - 3.1 LV ID/bsa, ES (H) 2.2 cm/m^2 1.3 - 2.1 LV PW thickness, ED (H) 1.1 cm 0.6 - 0.9 LV PW/LV ID ratio, ED 0.22 LV wall mass (H) 196 g 66 - 150 LV wall mass/bsa (H) 123 g/m^2 44 - 88 Stroke volume/bsa, 1-p A2C 39.6 ml/m^2 LV end-diastolic volume, 1-p A4C (H) 151 ml 48 - 140 LV end-systolic volume, 1-p A4C (H) 73 ml 12 - 60 LV end-diastolic volume, 2-p (H) 146 ml 46 - 106 LV end-systolic volume, 2-p (H) 75 ml 14 - 42 LV ejectio (more content not included)... [employer] Work Phone: Echo Complete w/wo Contrasto n 12-12-2020 Echo Complete w/wo Contrast Patient Name: ADORE WALTER Ultrasound ACCESSION EXAM DATE/TIME PROCEDURE ORDERING PROVIDER [id number] 12/12/2020 12:05 EDT Echo Complete w/wo DO ARORA PAUL E. Contrast Reason For Exam (Echo Complete w/wo Contrast) Ectopic cardiac beats; Bilateral leg Edema Report TRANSTHORACIC ECHOCARDIOGRAM PATIENT: Adore Walter STUDY DATE: 12/12/2020 : 1935 AGE: 85 HT/WT: 154.9 cm (61 58.1 kg in) (127.7 lb) GENDER: F BP: 160 / 78 [facility] [facility] PATIENT Outpatient [facility] STATUS: Medical Center *ORDERING PHYSICIAN: * Chris Arora *READING PHYSICIAN: * Issa *KILN FIRER: * Meli Isaac RDCS, MD AE, CHIARA ----- INDICATIONS: Bilateral Leg Edema; Ectopic cardiac beats. ----- CONCLUSIONS SUMMARY: 1. Left ventricle: The cavity size is normal. Wall thickness is mildly increased. Systolic function is mildly decreased by the biplane method of disks. The estimated ejection fraction is 48%. Hypokinesis of the inferior myocardium. 2. Mitral valve: There is trivial, less than 1+ regurgitation. 3. Aortic valve: Thickening, consistent with sclerosis. 4. Tricuspid valve: There is trivial, less than 1+ regurgitation. 5. Pulmonic valve: Structurally normal valve. 6. Aorta: The aorta is moderately dilated. The Ascending Aorta measures 4.0 cm ----- STUDY DATA: Complete transthoracic echocardiogram. Procedure: Image quality was good. M-mode, complete 2D, strain rate, complete spectral Doppler, and color flow Doppler images were acquired and archived for permanent storage and are available for subsequent review. Study status: Routine. Patient status: Outpatient. ----- FINDINGS LEFT VENTRICLE: Average LV global longitudinal strain is -15. The Ultrasound Report cavity size is normal. Wall thickness is mildly increased. Systolic function is mildly decreased by the biplane method of disks. The estimated ejection fraction is 48%. Regional wall motion abnormalities: Hypokinesis of the inferior myocardium. RIGHT VENTRICLE: The cavity size is normal. Wall thickness is normal. Systolic function is normal. LEFT ATRIUM: The atrium is mildly dilated. RIGHT ATRIUM: The atrium is normal in size. MITRAL VALVE: Mildly thickened annulus. Mildly calcified leaflets. Leaflet separation is normal. Doppler: Transvalvular velocity is within the normal range. There is no evidence for stenosis. There is trivial, less than 1+ regurgitation. The valve area by pressure half-time is 2.7 cm^2. The valve area (LVOT continuity) is 2.2 cm^2. The mean diastolic gradient is 1 mm Hg. The peak diastolic gradient is 3 mm Hg. AORTIC VALVE: Mildly calcified leaflets. Thickening, consistent with sclerosis. Doppler: There is no stenosis. There is mild, 1+ regurgitation. Dimensionless index: 0.58. The valve area by the velocity-time integral method is 2.2 cm^2. The valve area index by the velocity-time integral method is 1.4 cm^2/m^2. The mean systolic gradient is 4 mm Hg. The peak systolic gradient is 8 mm Hg. The peak systolic velocity is 1.4 m/sec. TRICUSPID VALVE: Normal-sized annulus. Mildly thickened leaflets. Leaflet separation is normal. Doppler: Transvalvular velocity is within the normal range. There is no evidence for stenosis. There is trivial, less than 1+ regurgitation. PULMONIC VALVE: Structurally normal valve. Cusp separation is normal. Doppler: Transvalvular velocity is within the normal range. There is no regurgitation. AORTA: The aorta is moderately dilated. The Ascending Aorta measures 4.0 cm PERICARDIUM: There is no pericardial effusion. ----- Measurements Value Reference Aortic root ID 3.2 cm <3.8 Aortic root ID, STJ, ED 3.0 cm 2.0 - 3.2 Aortic root ID/bsa, STJ, ED 1.9 cm/m^2 1.1 - 1.9 Value Reference Ascending aorta ID (H) 4.0 cm 1.9 - 3.5 Ascending aorta ID/bsa, A-P (H) 2.5 cm/m^2 1.0 - 2.2 Ascending aorta ID, max (H) 4.0 cm 1.9 - 3.5 Ascending aorta ID/bsa, max (H) 2.5 cm/m^2 1.0 - 2.2 Ascending aorta ID, A-P, S 4.0 cm Ascending aorta ID/bsa, A-P, S 2.5 cm/m^2 Left ventricle Value Reference GLS, 2D 15.12 % LV ID, ED 4.9 cm 3.8 - 5.2 LV ID, ES 3.5 cm 2.2 - 3.5 LV ID/bsa, ED 3.1 cm/m^2 2.3 - 3.1 LV ID/bsa, ES (H) 2.2 cm/m^2 1.3 - 2.1 LV PW thickness, ED (H) 1.1 cm 0.6 - 0.9 LV PW/LV ID ratio, ED 0.22 LV wall mass (H) 196 g 66 - 150 LV wall mass/bsa (H) 123 g/m^2 44 - 88 Stroke volume/bsa, 1-p A2C 39.6 ml/m^2 LV end-diastolic vo (more content not included)... Normal [facility] Carotid Duplex Ultrasound Completeon 12-12-2020 Carotid Duplex Ultrasound Complete Patient Name: ADORE WALTER Ultrasound ACCESSION EXAM DATE/TIME PROCEDURE ORDERING PROVIDER [id number] 12/12/2020 11:00 EDT Carotid Duplex DO ARORA PAUL E. Ultrasound Complete CPT code 03402 Reason For Exam ( Carotid Duplex Ultrasound Complete) . Report ULTRASOUND OF BILATERAL CAROTID SYSTEMS WITH GRAYSCALE AND COLOR FLOW IMAGING AND SPECTRAL WAVEFORM ANALYSIS CLINICAL INDICATION: Right carotid bruit. TECHNIQUE: Real-time bilateral carotid ultrasound. Grayscale and color flow images evaluated. Duplex waveform analysis. COMPARISON: None. FINDINGS: Mild and partially calcified plaque formation in the mid-distal CCAs, carotid bulbs and proximal ICAs, left greater than right, without significant endoluminal stenosis. Vertebral artery blood flow antegrade bilaterally. Peak systolic and end-diastolic velocities are as follows (cm/s): Right: CCA: 46/9 ICA proximal: 92/14 mid: 75/20 distal: 90/26 ICA/CCA Ratio: 2.0/1.7 Left: CCA: 76/17 ICA: proximal: 66/20 mid: 87/24 distal: 72/21 ICA/CCA Ratio: 1.2 x 1.4 IMPRESSION: 1. Mild and partially calcified bilateral plaquing, left greater than right, as reported. 2. Less than 50% stenosis by criteria similar to NASCET. Ultrasound Report Stenosis based upon Society of Radiologists in Ultrasound consensus: <50%: ICA PS <125 cm/sec, ICA ED <40 cm/sec, ICA/CCA ratio <2.0 50-69%: ICA PS 125-230 cm/sec , ICA ED 40-100 cm/sec, ICA/CCA ratio 2-4 >70%: ICA PS >230 cm/sec, ICA ED >100 cm/sec, ICA/CCA ratio >4 Report Dictated on Final Dictating Physician: MD ARROYO WENDELL Signed Date and Time: 12/12/2020 5:30 pm Signed by: MD ARROYO WENDELL Transcribed Date and Time: 12/12/2020 5:32 Cardiovascular ACCESSION EXAM DATE/TIME PROCEDURE [id number] 12/12/2020 11:00 EDT VL Carotid Duplex Ultrasound Complete CPT code 67681 Reason For Exam (VL Carotid Duplex Ultrasound Complete) . Report ULTRASOUND OF BILATERAL CAROTID SYSTEMS WITH GRAYSCALE AND COLOR FLOW IMAGING AND SPECTRAL WAVEFORM ANALYSIS CLINICAL INDICATION: Right carotid bruit. TECHNIQUE: Real-time bilateral carotid ultrasound. Grayscale and color flow images evaluated. Duplex waveform analysis. COMPARISON: None. FINDINGS: Mild and partially calcified plaque formation in the mid-distal CCAs, carotid bulbs and proximal ICAs, left greater than right, without significant endoluminal stenosis. Vertebral artery blood flow antegrade bilaterally. Peak systolic and end-diastolic velocities are as follows (cm/s): Right: CCA: 46/9 ICA proximal: 92/14 mid: 75/20 distal: 90/26 ICA/CCA Ratio: 2.0/1.7 Left: CCA: 76/17 Cardiovascular Report ICA: proximal: 66/20 mid: 87/24 distal: 72/21 ICA/CCA Ratio: 1.2 x 1.4 IMPRESSION: 1. Mild and partially calcified bilateral plaquing, left greater than right, as reported. 2. Less than 50% stenosis by criteria similar to NASCET. Stenosis based upon Society of Radiologists in Ultrasound consensus: <50%: ICA PS <125 cm/sec, ICA ED <40 cm/sec, ICA/CCA ratio <2.0 50-69%: ICA PS 125-230 cm/sec , ICA ED 40-100 cm/sec, ICA/CCA ratio 2-4 >70%: ICA PS >230 cm/sec, ICA ED >100 cm/sec, ICA/CCA ratio >4 Report Dictated on Final Dictating Physician: MD ARROYO WENDELL Signed Date and Time: 12/12/2020 5:30 pm Signed by: MD ARROYO WENDELL Transcribed Date and Time: 12/12/2020 5:32 Normal [facility] VL DUP CAROTID BILATERALOrde red By: Chris Arora on 12-12-2020 Patient Name: ADORE WALTER Ultrasound ACCESSION EXAM DATE/TIME PROCEDURE ORDERING PROVIDER [id number] 12/12/2020 11:00 EDT VL Carotid Duplex DO ARORA PAUL E. Ultrasound Complete CPT code 29156 Reason For Exam (VL Carotid Duplex Ultrasound Complete) . Report ULTRASOUND OF BILATERAL CAROTID SYSTEMS WITH GRAYSCALE AND COLOR FLOW IMAGING AND SPECTRAL WAVEFORM ANALYSIS CLINICAL INDICATION: Right carotid bruit. TECHNIQUE: Real-time bilateral carotid ultrasound. Grayscale and color flow images evaluated. Duplex waveform analysis. COMPARISON: None. FINDINGS: Mild and partially calcified plaque formation in the mid-distal CCAs, carotid bulbs and proximal ICAs, left greater than right, without significant endoluminal stenosis. Vertebral artery blood flow antegrade bilaterally. Peak systolic and end-diastolic velocities are as follows (cm/s): Right: CCA: 46/9 ICA proximal: 92/14 mid: 75/20 distal: 90/26 ICA/CCA Ratio: 2.0/1.7 Left: CCA: 76/17 ICA: proximal: 66/20 mid: 87/24 distal: 72/21 ICA/CCA Ratio: 1.2 x 1.4 IMPRESSION: 1. Mild and partially calcified bilateral plaquing, left greater than right, as reported. 2. Less than 50% stenosis by criteria similar to NASCET. Ultrasound Report Stenosis based upon Society of Radiologists in Ultrasound consensus: <50%: ICA PS <125 cm/sec, ICA ED <40 cm/sec, ICA/CCA ratio <2.0 50-69%: ICA PS 125-230 cm/sec , ICA ED 40-100 cm/sec, ICA/CCA ratio 2-4 >70%: ICA PS >230 cm/sec, ICA ED >100 cm/sec, ICA/CCA ratio >4 Report Dictated on --- Final --- Dictating Physician: MD ARROYO WENDELL Signed Date and Time: 12/12/2020 5:30 pm Signed by: MD ARROYO WENDELL Transcribed Date and Time: 12/12/2020 5:32 Cardiovascular ACCESSION EXAM DATE/TIME PROCEDURE [id number] 12/12/2020 11:00 EDT VL Carotid Duplex Ultrasound Complete CPT code 18824 Reason For Exam (VL Carotid Duplex Ultrasound Complete) . Report ULTRASOUND OF BILATERAL CAROTID SYSTEMS WITH GRAYSCALE AND COLOR FLOW IMAGING AND SPECTRAL WAVEFORM ANALYSIS CLINICAL INDICATION: Right carotid bruit. TECHNIQUE: Real-time bilateral carotid ultrasound. Grayscale and color flow images evaluated. Duplex waveform analysis. COMPARISON: None. FINDINGS: Mild and partially calcified plaque formation in the mid-distal CCAs, carotid bulbs and proximal ICAs, left greater than right, without significant endoluminal stenosis. Vertebral artery blood flow antegrade bilaterally. Peak systolic and end-diastolic velocities are as follows (cm/s): Right: CCA: 46/9 ICA proximal: 92/14 mid: 75/20 distal: 90/26 ICA/CCA Ratio: 2.0/1.7 Left: CCA: 76/17 Cardiovascular Report ICA: proximal: 66/20 mid: 87/24 distal: 72/21 ICA/CCA Ratio: 1.2 x 1.4 IMPRESSION: 1. Mild and partially calcified bilateral plaquing, left greater than right, as reported. 2. Less than 50% stenosis by criteria similar to NASCET. Stenosis based upon Society of Radiologists in Ultrasound consensus: <50%: ICA PS <125 cm/sec, ICA ED <40 cm/sec, ICA/CCA ratio <2.0 50-69%: ICA PS 125-230 cm/sec , ICA ED 40-100 cm/sec, ICA/CCA ratio 2-4 >70%: ICA PS >230 cm/sec, ICA ED >100 cm/sec, ICA/CCA ratio >4 Report Dictated on --- Final --- Dictating Physician: MD ARROYO WENDELL Signed Date and Time: 12/12/2020 5:30 pm Signed by: MD ARROYO WENDELL Transcribed Date and Time: 12/12/2020 5:32 [facility] Work Phone: [facility], [facility] Incoming Cardiology Results From [facility] - 12/12/2020 5:32 PM EDT [facility]: [id number] ACCESSION EXAM DATE/TIME PROCEDURE ORDERING PROVIDER [id number] 12/12/2020 11:00 EDT VL Carotid Duplex DO ARORA PAUL E. Ultrasound Complete CPT code 83729 Reason For Exam (VL Carotid Duplex Ultrasound Complete) . Report ULTRASOUND OF BILATERAL CAROTID SYSTEMS WITH GRAYSCALE AND COLOR FLOW IMAGING AND SPECTRAL WAVEFORM ANALYSIS CLINICAL INDICATION: Right carotid bruit. TECHNIQUE: Real-time bilateral carotid ultrasound. Grayscale and color flow images evaluated. Duplex waveform analysis. COMPARISON: None. FINDINGS: Mild and partially calcified plaque formation in the mid-distal CCAs, carotid bulbs and proximal ICAs, left greater than right, without significant endoluminal stenosis. Vertebral artery blood flow antegrade bilaterally. Peak systolic and end-diastolic velocities are as follows (cm/s): Right: CCA: 46/9 ICA proximal: 92/14 mid: 75/20 distal: 90/26 ICA/CCA Ratio: 2.0/1.7 Left: CCA: 76/17 ICA: proximal: 66/20 mid: 87/24 distal: 72/21 ICA/CCA Ratio: 1.2 x 1.4 IMPRESSION: 1. Mild and partially calcified bilateral plaquing, left greater than right, as reported. 2. Less than 50% stenosis by criteria similar to NASCET. Ultrasound Report Stenosis based upon Society of Radiologists in Ultrasound consensus: <50%: ICA PS <125 cm/sec, ICA ED <40 cm/sec, ICA/CCA ratio <2.0 50-69%: ICA PS 125-230 cm/sec , ICA ED 40-100 cm/sec, ICA/CCA ratio 2-4 >70%: ICA PS >230 cm/sec, ICA ED >100 cm/sec, ICA/CCA ratio >4 Report Dictated on --- Final --- Dictating Physician: MD ARROYO WENDELL Signed Date and Time: 12/12/2020 5:30 pm Signed by: MD ARROYO WENDELL Transcribed Date and Time: 12/12/2020 5:32 Cardiovascular ACCESSION EXAM DATE/TIME PROCEDURE [id number] 12/12/2020 11:00 EDT VL Carotid Duplex Ultrasound Complete CPT code 15838 Reason For Exam (VL Carotid Duplex Ultrasound Complete) . Report ULTRASOUND OF BILATERAL CAROTID SYSTEMS WITH GRAYSCALE AND COLOR FLOW IMAGING AND SPECTRAL WAVEFORM ANALYSIS CLINICAL INDICATION: Right carotid bruit. TECHNIQUE: Real-time bilateral carotid ultrasound. Grayscale and color flow images evaluated. Duplex waveform analysis. COMPARISON: None. FINDINGS: Mild and partially calcified plaque formation in the mid-distal CCAs, carotid bulbs and proximal ICAs, left greater than right, without significant endoluminal stenosis. Vertebral artery blood flow antegrade bilaterally. Peak systolic and end-diastolic velocities are as follows (cm/s): Right: CCA: 46/9 ICA proximal: 92/14 mid: 75/20 distal: 90/26 ICA/CCA Ratio: 2.0/1.7 Left: CCA: 76/17 Cardiovascular Report ICA: proximal: 66/20 mid: 87/24 distal: 72/21 ICA/CCA Ratio: 1.2 x 1.4 IMPRESSION: 1. Mild and partially calcified bilateral plaquing, left greater than right, as reported. 2. Less than 50% stenosis by criteria similar to NASCET. Stenosis based upon Society of Radiologists in Ultrasound consensus: <50%: ICA PS <125 cm/sec, ICA ED <40 cm/sec, ICA/CCA ratio <2.0 50-69%: ICA PS 125-230 cm/sec , ICA ED 40-100 cm/sec, ICA/CCA ratio 2-4 >70%: ICA PS >230 cm/sec, ICA ED >100 cm/sec, ICA/CCA ratio >4 Report Dictated on --- Final --- Dictating Physician: MD ARROYO WENDELL Signed Date and Time: 12/12/2020 5:30 pm Signed by: MD ARROYO WENDELL Transcribed Date and Time: 12/12/2020 5:32 [facility] Work Phone: Op Noteon 12-04-2020 Op Note PATIENT: ADORE WALTER ADMISSION DATE: 12/04/2020 SURGERY DATE: 12/04/2020 DATE OF : 1935 AGE: 85 ADMITTING PHYSICIAN: Nohemi Cuba MD ATTENDING PHYSICIAN: Nohemi Cuba MD DICTATING PHYSICIAN: Nohemi Cuba MD OPERATIVE RECORD PROCEDURE: EXCISION OF MALIGNANT LESION, RIGHT BACK WITH INTERMEDIATE CLOSURE. 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 ANESTHESIA: Local. EBL: Minimal OPERATIVE INDICATION: The patient is an 85-year-old female who follows with her primary care physician, who underwent biopsy of right mid back lesion which demonstrated squamous cell carcinoma in situ. She has a history of significant skin lesions. The patient presents now for definitive surgical excision. DESCRIPTION OF PROCEDURE: The patient was marked and consented in the preop area and taken to the operating room, prepped and draped in the usual manner under local anesthesia. A time-out was performed. I injected 10 cc of 1% lidocaine with epinephrine preoperatively and additional 10 cc of 0.25% Marcaine with epinephrine. I outlined the squamous cell carcinoma in situ lesion, left 5 mm margins and performed a 2.1 x 9 cm excision of the right back in a longitudinal manner. This was through the skin, subcutaneous tissue down to the muscle fascia, excising in a cone-like manner. I closed the Adarsh's with 3-0 Monocryl, the dermis with 3-0 Monocryl and ran a 4-0 Prolene in a whipstitch manner on the skin. All counts were correct. The patient tolerated this well and was discharged to home. We will wait for final pathology. Diskriter Job ID: [id number] Nohemi Cuba MD DOD:12/04/2020 02:36 P MPS/dsk DOT:12/04/2020 07:59 P Job Number: [id number] Document Number: [id number] [facility] Surgical Pathologyon 021 Surgical Pathology [id number] [facility] PATHOLOGY AND LABORATORY MEDICINE [address] [place] [address] [phone] Fax - FINAL SURGICAL PATHOLOGY REPORT NAME: ADORE WALTER : 1935 85 Y F MANJULA NO.: [id number] LOCATION: [place] [address] PROCEDURE 12/04/2020 DATE: SURGEON: NOHEMI CUBA M.D. RECEIVED 12/04/2020 DATE: ATTENDING: NOHEMI CUBA M.D. REPORT DATE: 12/06/2020 COPIES TO: DIAGNOSIS: SKIN, RIGHT BACK, EXCISION - SQUAMOUS CELL CARCINOMA IN SITU NEGATIVE MARGINS JAW/JAW Signature> GERRY YADAV M.D. CLINICAL INFORMATION: D09.9; squamous cell carcinoma in situ SPECIMEN: SKIN , SCC RIGHT BACK IN SITU GROSS DESCRIPTION: Received in formalin labeled "right back" is an ellipse of skin and subcutaneous tissue which measures approximately 4.5 x 1.5 cm and resected to a depth of up to 0.5 cm. The epithelial surface is wrinkled, tafoya, and contains several scattered, raised nodular lesions approximately 0.3 to up to 0.6 cm. The specimen is not oriented. All resection surfaces are painted black. The tips of the specimen are removed and submitted in cassette A1. The remainder of the specimen is serially sectioned and entirely submitted in cassettes A2 to A4. JCK/0RW Disclaimer: The following statement applies to all immunohistochemistry, in situ hybridization, molecular studies, and immunofluorescence testing. The use of one or more reagents in the above tests is regulated as an analyte specific reagent (ASR). These tests were developed and their performance characteristics determined by the clinical laboratories of [facility]. They have not been cleared by the US Food and Drug Administration (FDA). The FDA has determined that such clearance or approval is not necessary. All the above immunostains were performed on paraffin embedded tissue. Appropriate positive and negative controls (where applicable) were run in parallel with the patient's specimen; these controls showed expected staining pattern, with acceptable intensity of staining. Immunohistochemical assays have not been validated on decalcified tissues. Results should be interpreted with caution given the raised possibility of false negativity on decalcified specimens. [place] [address]. DEPARTMENT OF PATHOLOGY AND LABORATORY MEDICINE [place], [place] [address] [email or web address] Normal [facility] CT LUMBAR SPINE WO CONTRASTo n 10-25-2020 Patient Name: ADORE BABCOCK Computed Tomography ACCESSION EXAM DATE/TIME PROCEDURE ORDERING PROVIDER [id number] 10/25/2020 14:[address] Spine Lumbar w/o 5881 -ROSETTE GUZMÁN Contrast CPT code 91484 Reason For Exam (CT Spine Lumbar w/o Contrast) trauma Report CT LUMBAR SPINE : CLINICAL INDICATION: Status post fall with persistent lumbar spine pain. TECHNIQUE: Transaxial sequence through the lumbar spine. Multiplanar reconstruction imaging was performed. Dose reduction was employed with automated exposure control. COMPARISON: CT abdomen pelvis 11/02/2018. FINDINGS: Osseous structures are demineralized. Central compression fracture deformity, mild to moderate in severity at L4 with slight retropulsion is unchanged. Moderate to severe anterior compression fracture deformity involving L5 with more pronounced retropulsion appears new from prior study. Subtle mild compression fracture deformities centrally at L2 and L3 similar to possibly slightly progressed. Mild anterolisthesis of L4 over L5 similar to prior study. Laminectomy defects are present at L4-L5, L5-S1 and L2-L3 on the left. Spinous processes in the upper lumbar spine abut one another with subchondral sclerosis present. Multilevel degenerative disc disease with intervertebral disc space narrowing and endplate osteophyte formation likely most pronounced at L5-S1 where there is vacuum disc phenomena present. The visualized bony pelvis appears intact. Heavy atherosclerotic calcifications in the visualized abdominal aorta and iliac arteries. Bilateral extrarenal pelves are present. No definite CT evidence of paraspinal or epidural fluid collection. Multiple prominent collaterals in the retroperitoneum on the left similar to prior study. Moderate to large amount retained colonic stool. Somewhat atypical configuration of the urinary bladder with subtle wall thickening. Level by level analysis: L1-L2: Disc osteophyte complex with relatively mild left greater than right foraminal narrowing. No significant spinal stenosis. L2-L3: Disc osteophyte complex with mild to moderate bilateral foraminal narrowing. Degenerative ligamentous and facet hypertrophy without significant spinal stenosis. L3-L4: Disk osteophyte complex in conjunction with retropulsion along the superior L4 endplate leads to mild spinal stenosis. Degenerative ligamentous and facet hypertrophy with moderate right and left foraminal narrowing. L4-L5: Retropulsion involving the posterior superior endplate of L5 flattens the Computed Tomography Report ventral thecal sac likely contributing to at least moderate spinal stenosis. At the L4-L5 level there are laminectomy defects. Fairly pronounced degenerative ligamentous and facet hypertrophy with severe bilateral foraminal narrowing. L5-S1: Disc ossify complex with severe left and moderate right foraminal narrowing. Degenerative ligamentous and facet hypertrophy without significant spinal stenosis. IMPRESSION: 1. Osseous demineralization with mild to moderate central compression fracture deformity involving L4 with slight retropulsion, unchanged. Moderate to severe anterior compression fracture deformity involving L5 with more pronounced retropulsion, appears new from prior study. There is at least moderate spinal stenosis at this level, however there are laminectomy defects present at well some degree of stenosis is somewhat difficult to assess. If clinically warranted consider further evaluation with CT. 2. Subtle mild compression fracture deformities centrally at L2 and L3 similar to possibly slightly progressed. 3. Multilevel degenerative spondylosis leading to varying degrees of spinal stenosis and foraminal narrowing. Please see level by level analysis. 4. Somewhat atypical configuration of the urinary bladder with slight questionable wall thickening. Consider further evaluation with ultrasound if warranted. 5. Additional findings including atherosclerosis and moderate to large amount retained colonic stool. Report Dictated on --- Final --- Dictating Physician: MD INIGUEZ VLADIMIR Signed Date and Time: 10/25/2020 3:23 pm Signed by: MD INIGUEZ VLADIMIR Transcribed Date and Time: 10/25/2020 3:24 [facility] Work Phone: [facility], [facility] Incoming Radiology Results From [facility] - 10/25/2020 3:24 PM EDT Patient Name: ADORE WALTER Computed Tomography ACCESSION EXAM DATE/TIME PROCEDURE ORDERING PROVIDER [id number] 10/25/2020 14:[address] Spine Lumbar w/o Petros -ROSETTE GUZMÁN Contrast CPT code 42123 Reason For Exam (CT Spine Lumbar w/o Contrast) trauma Report CT LUMBAR SPINE : CLINICAL INDICATION: Status post fall with persistent lumbar spine pain. TECHNIQUE: Transaxial sequence through the lumbar spine. Multiplanar reconstruction imaging was performed. Dose reduction was employed with automated exposure control. COMPARISON: CT abdomen pelvis 11/02/2018. FINDINGS: Osseous structures are demineralized. Central compression fracture deformity, mild to moderate in severity at L4 with slight retropulsion is unchanged. Moderate to severe anterior compression fracture deformity involving L5 with more pronounced retropulsion appears new from prior study. Subtle mild compression fracture deformities centrally at L2 and L3 similar to possibly slightly progressed. Mild anterolisthesis of L4 over L5 similar to prior study. Laminectomy defects are present at L4-L5, L5-S1 and L2-L3 on the left. Spinous processes in the upper lumbar spine abut one another with subchondral sclerosis present. Multilevel degenerative disc disease with intervertebral disc space narrowing and endplate osteophyte formation likely most pronounced at L5-S1 where there is vacuum disc phenomena present. The visualized bony pelvis appears intact. Heavy atherosclerotic calcifications in the visualized abdominal aorta and iliac arteries. Bilateral extrarenal pelves are present. No definite CT evidence of paraspinal or epidural fluid collection. Multiple prominent collaterals in the retroperitoneum on the left similar to prior study. Moderate to large amount retained colonic stool. Somewhat atypical configuration of the urinary bladder with subtle wall thickening. Level by level analysis: L1-L2: Disc osteophyte complex with relatively mild left greater than right foraminal narrowing. No significant spinal stenosis. L2-L3: Disc osteophyte complex with mild to moderate bilateral foraminal narrowing. Degenerative ligamentous and facet hypertrophy without significant spinal stenosis. L3-L4: Disk osteophyte complex in conjunction with retropulsion along the superior L4 endplate leads to mild spinal stenosis. Degenerative ligamentous and facet hypertrophy with moderate right and left foraminal narrowing. L4-L5: Retropulsion involving the posterior superior endplate of L5 flattens the Computed Tomography Report ventral thecal sac likely contributing to at least moderate spinal stenosis. At the L4-L5 level there are laminectomy defects. Fairly pronounced degenerative ligamentous and facet hypertrophy with severe bilateral foraminal narrowing. L5-S1: Disc ossify complex with severe left and moderate right foraminal narrowing. Degenerative ligamentous and facet hypertrophy without significant spinal stenosis. IMPRESSION: 1. Osseous demineralization with mild to moderate central compression fracture deformity involving L4 with slight retropulsion, unchanged. Moderate to severe anterior compression fracture deformity involving L5 with more pronounced retropulsion, appears new from prior study. There is at least moderate spinal stenosis at this level, however there are laminectomy defects present at well some degree of stenosis is somewhat difficult to assess. If clinically warranted consider further evaluation with CT. 2. Subtle mild compression fracture deformities centrally at L2 and L3 similar to possibly slightly progressed. 3. Multilevel degenerative spondylosis leading to varying degrees of spinal stenosis and foraminal narrowing. Please see level by level analysis. 4. Somewhat atypical configuration of the urinary bladder with slight questionable wall thickening. Consider further evaluation with ultrasound if warranted. 5. Additional findings including atherosclerosis and moderate to large amount retained colonic stool. Report Dictated on --- Final --- Dictating Physician: MD INIGUEZ VLADIMIR Signed Date and Time: 10/25/2020 3:23 pm Signed by: MD INIGUEZ VLADIMIR Transcribed Date and Time: 10/25/2020 3:24 [facility] Work Phone: CT PELVIS WO ANY CONTRASTon 10-25-2020 Patient Name: ADORE WALTERN: [id number] Computed Tomography ACCESSION EXAM DATE/TIME PROCEDURE ORDERING PROVIDER [id number] 10/25/2020 14:[address] Pelvis w/o Contrast ROSETTE MENCHACA CPT code 15269 Reason For Exam (CT Pelvis w/o Contrast) lumbar spine and hip fx? Report CT PELVIS: INDICATION: Fall, pain COMPARISON: CT of the abdomen and pelvis dated 11/02/2018. TECHNIQUE: CT examination of the pelvis was performed in the axial plane with sagittal and coronal reconstructions. 3-D reconstructions were performed and reviewed by myself on a separate workstation contemporaneously with the interpretation of this study. FINDINGS: There is a left hip prosthesis with acetabular and femoral components. In addition there is a right femoral roman with a dynamic hip screw. No acute fractures are seen involving the visualized anatomy. No loosening of either component of the prosthesis nor of the right femoral roman. The osseous structures of the visualized portions of the lumbar spine, the pelvis and the femurs demonstrate osseous demineralization. There are compression fractures of L4 and L5 with interval compression of the superior endplate of L5 as compared to the prior CT of the abdomen and pelvis. The scalloping of the superior endplate of L4 is stable as compared to the prior study. Arthritic changes of the posterior elements of the spine are noted. There is mild disc space narrowing at the lumbosacral level with vacuum disc phenomena. Dense atherosclerosis of the aorta and iliac arteries is noted. IMPRESSION: There is a remote fracture of L4 with an age indeterminate compression fracture of L5. Osteoporosis. Report Dictated on --- Final --- Dictating Physician: DO MERCADO ALFRED Signed Date and Time: 10/25/2020 3:19 pm Signed by: DO MERCADO ALFRED Transcribed Date and Time: 10/25/2020 3:20 [facility] Work Phone: Nathan, [facility] Incoming Radiology Results From [facility] - 10/25/2020 3:20 PM EDT Patient Name: ADORE WALTER Computed Tomography ACCESSION EXAM DATE/TIME PROCEDURE ORDERING PROVIDER [id number] 10/25/2020 14:[address] Pelvis w/o Contrast 58Dex -ROSTETE GUZMÁN CPT code 22852 Reason For Exam (CT Pelvis w/o Contrast) lumbar spine and hip fx? Report CT PELVIS: INDICATION: Fall, pain COMPARISON: CT of the abdomen and pelvis dated 11/02/2018. TECHNIQUE: CT examination of the pelvis was performed in the axial plane with sagittal and coronal reconstructions. 3-D reconstructions were performed and reviewed by myself on a separate workstation contemporaneously with the interpretation of this study. FINDINGS: There is a left hip prosthesis with acetabular and femoral components. In addition there is a right femoral roman with a dynamic hip screw. No acute fractures are seen involving the visualized anatomy. No loosening of either component of the prosthesis nor of the right femoral roman. The osseous structures of the visualized portions of the lumbar spine, the pelvis and the femurs demonstrate osseous demineralization. There are compression fractures of L4 and L5 with interval compression of the superior endplate of L5 as compared to the prior CT of the abdomen and pelvis. The scalloping of the superior endplate of L4 is stable as compared to the prior study. Arthritic changes of the posterior elements of the spine are noted. There is mild disc space narrowing at the lumbosacral level with vacuum disc phenomena. Dense atherosclerosis of the aorta and iliac arteries is noted. IMPRESSION: There is a remote fracture of L4 with an age indeterminate compression fracture of L5. Osteoporosis. Report Dictated on --- Final --- Dictating Physician: DO MERCADO ALFRED Signed Date and Time: 10/25/2020 3:19 pm Signed by: DO MERCADO ALFRED Transcribed Date and Time: 10/25/2020 3:20 [facility] CT Pelvis w/o Contrast (No P O, No IV)on 10-25-2020 CT Pelvis w/o Contrast (No PO, No IV) Patient Name: ADORE WALTER Computed Tomography ACCESSION EXAM DATE/TIME PROCEDURE ORDERING PROVIDER [id number] 10/25/2020 14:[address] Pelvis w/o Contrast 58ROSETTE WINCHESTER CPT code 76681 Reason For Exam (CT Pelvis w/o Contrast) lumbar spine and hip fx? Report CT PELVIS: INDICATION: Fall, pain COMPARISON: CT of the abdomen and pelvis dated 11/02/2018. TECHNIQUE: CT examination of the pelvis was performed in the axial plane with sagittal and coronal reconstructions. 3-D reconstructions were performed and reviewed by myself on a separate workstation contemporaneously with the interpretation of this study. FINDINGS: There is a left hip prosthesis with acetabular and femoral components. In addition there is a right femoral roman with a dynamic hip screw. No acute fractures are seen involving the visualized anatomy. No loosening of either component of the prosthesis nor of the right femoral roman. The osseous structures of the visualized portions of the lumbar spine, the pelvis and the femurs demonstrate osseous demineralization. There are compression fractures of L4 and L5 with interval compression of the superior endplate of L5 as compared to the prior CT of the abdomen and pelvis. The scalloping of the superior endplate of L4 is stable as compared to the prior study. Arthritic changes of the posterior elements of the spine are noted. There is mild disc space narrowing at the lumbosacral level with vacuum disc phenomena. Dense atherosclerosis of the aorta and iliac arteries is noted. IMPRESSION: There is a remote fracture of L4 with an age indeterminate compression fracture of L5. Osteoporosis. Report Dictated on Final Dictating Physician: DO MERCADO ALFRED Signed Date and Time: 10/25/2020 3:19 pm Signed by: DO MERCADO ALFRED Transcribed Date and Time: 10/25/2020 3:20 Normal [facility] CT Spine Lumbar w/o Contrast on 10-25-2020 CT Spine Lumbar w/o Contrast [facility]: [id number] Comput[facility] Tomography ACCESSION EXAM DATE/TIME PROCEDURE ORDERING PROVIDER [id number] 10/25/2020 14:[address] Spine Lumbar w/o 5881 -ROSETTE GUZMÁN Contrast CPT code 17994 Reason For Exam (CT Spine Lumbar w/o Contrast) trauma Report CT LUMBAR SPINE : CLINICAL INDICATION: Status post fall with persistent lumbar spine pain. TECHNIQUE: Transaxial sequence through the lumbar spine. Multiplanar reconstruction imaging was performed. Dose reduction was employed with automated exposure control. COMPARISON: CT abdomen pelvis 11/02/2018. FINDINGS: Osseous structures are demineralized. Central compression fracture deformity, mild to moderate in severity at L4 with slight retropulsion is unchanged. Moderate to severe anterior compression fracture deformity involving L5 with more pronounced retropulsion appears new from prior study. Subtle mild compression fracture deformities centrally at L2 and L3 similar to possibly slightly progressed. Mild anterolisthesis of L4 over L5 similar to prior study. Laminectomy defects are present at L4-L5, L5-S1 and L2-L3 on the left. Spinous processes in the upper lumbar spine abut one another with subchondral sclerosis present. Multilevel degenerative disc disease with intervertebral disc space narrowing and endplate osteophyte formation likely most pronounced at L5-S1 where there is vacuum disc phenomena present. The visualized bony pelvis appears intact. Heavy atherosclerotic calcifications in the visualized abdominal aorta and iliac arteries. Bilateral extrarenal pelves are present. No definite CT evidence of paraspinal or epidural fluid collection. Multiple prominent collaterals in the retroperitoneum on the left similar to prior study. Moderate to large amount retained colonic stool. Somewhat atypical configuration of the urinary bladder with subtle wall thickening. Level by level analysis: L1-L2: Disc osteophyte complex with relatively mild left greater than right foraminal narrowing. No significant spinal stenosis. L2-L3: Disc osteophyte complex with mild to moderate bilateral foraminal narrowing. Degenerative ligamentous and facet hypertrophy without significant spinal stenosis. L3-L4: Disk osteophyte complex in conjunction with retropulsion along the superior L4 endplate leads to mild spinal stenosis. Degenerative ligamentous and facet hypertrophy with moderate right and left foraminal narrowing. L4-L5: Retropulsion involving the posterior superior endplate of L5 flattens the Computed Tomography Report ventral thecal sac likely contributing to at least moderate spinal stenosis. At the L4-L5 level there are laminectomy defects. Fairly pronounced degenerative ligamentous and facet hypertrophy with severe bilateral foraminal narrowing. L5-S1: Disc ossify complex with severe left and moderate right foraminal narrowing. Degenerative ligamentous and facet hypertrophy without significant spinal stenosis. IMPRESSION: 1. Osseous demineralization with mild to moderate central compression fracture deformity involving L4 with slight retropulsion, unchanged. Moderate to severe anterior compression fracture deformity involving L5 with more pronounced retropulsion, appears new from prior study. There is at least moderate spinal stenosis at this level, however there are laminectomy defects present at well some degree of stenosis is somewhat difficult to assess. If clinically warranted consider further evaluation with CT. 2. Subtle mild compression fracture deformities centrally at L2 and L3 similar to possibly slightly progressed. 3. Multilevel degenerative spondylosis leading to varying degrees of spinal stenosis and foraminal narrowing. Please see level by level analysis. 4. Somewhat atypical configuration of the urinary bladder with slight questionable wall thickening. Consider further evaluation with ultrasound if warranted. 5. Additional findings including atherosclerosis and moderate to large amount retained colonic stool. Report Dictated on Final Dictating Physician: MD INIGUEZ VLADIMIR Signed Date and Time: 10/25/2020 3:23 pm Signed by: MD INIGUEZ VLADIMIR Transcribed Date and Time: 10/25/2020 3:24 Normal [facility] Comp Metabolic Panelon 10-25 Calcium [Mass/Vol] 9.5 mg/dL Normal 8.4-10.4 [facility] Comment on above: Performed By: #### C VFLR #### [facility] [address] [place] [address] , [address] Glucose [Mass/Vol] 110 mg/dL High 70-100 [facility] Comment on above: Performed By: #### C VFLR #### [facility] [address] [place] [address] , [address] ALP [Catalytic activity/Vol] 60 U/L Normal 38-126 [facility] Comment on above: Performed By: #### C VFLR #### [facility] [address] [place] [address] , [address] ALT [Catalytic activity/Vol] 14 U/L Normal 0-34 [facility] Comment on above: Result Comment: The ALT test is performed by an updated assay method. Please note that the reference intervals have been changed and are now sex specific. Performed By: #### C VFLR #### [facility] [address] [place] [address] , [address] Anion gap [Moles/Vol] 6 mmol/L Normal 3-13 [facility] Comment on above: Performed By: #### C VFLR #### [facility] [address] [place] [address] , [address] AST [Catalytic activity/Vol] 24 U/L Normal 15-46 [facility] Comment on above: Performed By: #### C VFLR #### [facility] [address] [place] [address] , [address] Bilirubin [Mass/Vol] 1.4 mg/dL High 0.2-1.3 [facility] Comment on above: Performed By: #### C VFLR #### [facility] [address] [place] [address] , [address] CO2 [Moles/Vol] 26 mmol/L Normal 22-30 [facility] Comment on above: Performed By: #### C VFLR #### [facility] [address] [place] [address] , [address] Creatinine [Mass/Vol] 0.59 mg/dL Normal 0.52-1.25 [facility] Comment on above: Performed By: #### C VFLR #### [facility] [address] [place] [address] , [address] GFR/1.73 sq M.predicted among blacks MDRD (S/P/Bld) [Vol rate/Area] mL/min/{1.73_m2} Normal >60 [facility] Comment on above: Performed By: #### C VFLR #### [facility] [address] [place] [address] , [address] GFR/1.73 sq M.predicted among non-blacks MDRD (S/P/Bld) [Vol rate/Area] 84.3 mL/min/{1.73_m2} Normal >60 [facility] Comment on above: Result Comment: KDIG O guidelines provide the following GFR categories: Stage GFR(ml/min/1.73 m2) Terms G1 >=90 Normal or high G2 60-89 Mildly decreased* G3a 45-59 Mildly to moderately decreased G3b 30-44 Moderately to severely decreased G4 15-29 Severely decreased G5 <15 Kidney failure *Relative to young adult level. In the absence of evidence of kidney damage, neither GFR category G1 nor G2 fulfill the criteria for CKD. The CKD-EPI equation is validated in individuals 18 years of age and older. Currently the best equation for estimating glomerular filtration rate (GFR) from serum creatinine in children is the Bedside Mckenzie equation. It is less accurate in patients with extremes of muscle mass, restriction of dietary protein, ingestion of creatine, extra-renal metabolism of creatinine, or treatment with medications that affect renal tubular creatinine secretion. Performed By: #### C VFLR #### [facility] [address] [place] [address] , [address] Protein [Mass/Vol] 6.2 g/dL Low 6.3-8.2 [facility] Comment on above: Performed By: #### C VFLR #### [facility] [address] [place] [address] , [address] Urea nitrogen [Mass/Vol] 16 mg/dL Normal 7-20 [facility] Comment on above: Performed By: #### C VFLR #### [facility] [address] [place] [address] , [address] Potassium [Moles/Vol] 4.1 mmol/L Normal 3.5-5.1 [facility] Comment on above: Performed By: #### C VFLR #### [facility] [address] [place] [address] , [address] Sodium [Moles/Vol] 137 mmol/L Normal 135-145 [facility] Comment on above: Performed By: #### C VFLR #### [facility] [address] [place] [address] , [address] Albumin [Mass/Vol] 4.0 g/dL Normal 3.5-5.0 [facility] Comment on above: Performed By: #### C VFLR #### [facility] [address] [place] [address] , [address] Chloride [Moles/Vol] 105 mmol/L Normal 98-107 [facility] Comment on above: Performed By: #### C VFLR #### [facility] [address] [place] [address] , [address] Comprehensive Metabolic Pane gianluca 10-25-2020 Albumin [Mass/Vol] 4.0 g/dL 3.5 - 5.0 g/dL [facility] Work Phone: ALP [Catalytic activity/Vol] 60 U/L 38 - 126 U/L [facility] Work Phone: [phone] ALT [Catalytic activity/Vol] 14 U/L 0 - 34 U/L [facility] Work Phone: [phone] Comment on above: The ALT test is perf ormed by an updated assay method. Please note that the reference intervals have been changed and are now sex specific. Anion gap [Moles/Vol] 6 mmol/L 3 - 13 mmol/L [facility] Work Phone: [phone] AST [Catalytic activity/Vol] 24 U/L 15 - 46 U/L [facility] Work Phone: [phone] Bilirubin Ql (U) 1.4 mg/dL High 0.2 - 1.3 mg/dL [facility] Work Phone: [phone] Calcium [Mass/Vol] 9.5 mg/dL 8.4 - 10. 4 mg/dL [facility] Work Phone: [phone] Chloride [Moles/Vol] 105 mmol/L 98 - 10 7 mmol/L [facility] Work Phone: [phone] CO2 [Moles/Vol] 26 mmol/L 22 - 30 mmol/L [facility] Work Phone: [phone] Creatinine [Mass/Vol] 0.59 mg/dL 0.52 - 1.25 mg/dL [facility] Work Phone: [phone] EGFR IF NonAfrican Central African 84.3 mL/min >[address] [facility] [address] Work Phone: Comment on above: KDIGO guidelines pro vide the following GFR categories: Stage GFR(ml/min/1.73 m2) Terms G1 >=90 Normal or high G2 60-89 Mildly decreased* G3a 45-59 Mildly to moderately decreased G3b 30-44 Moderately to severely decreased G4 15-29 Severely decreased G5 <15 Kidney failure *Relative to young adult level. In the absence of evidence of kidney damage, neither GFR category G1 nor G2 fulfill the criteria for CKD. The CKD-EPI equation is validated in individuals 18 years of age and older. Currently the best equation for estimating glomerular filtration rate (GFR) from serum creatinine in children is the Bedside Mckenzie equation. It is less accurate in patients with extremes of muscle mass, restriction of dietary protein, ingestion of creatine, extra-renal metabolism of creatinine, or treatment with medications that affect renal tubular creatinine secretion. GFR/1.73 sq M predicted among blacks MDRD (S/P/Bld) [Vol rate/Area] mL/min/{1.73_m2} >60 mL/min [facility] Work Phone: 1 Glucose [Mass/Vol] 110 mg/dL High 70 - 100 mg/dL [facility] Work Phone: Interpretation and review of laboratory results Abnormal [facility] Work Phone: Potassium [Moles/Vol] 4.1 mmol/L 3.5 - 5.1 mmol/L [facility] Work Phone: Protein [Mass/Vol] 6.2 g/dL Low 6.3 - 8.2 g/dL [facility] Work Phone: Sodium [Moles/Vol] 137 mmol/L 135 - 145 mmol/L [facility] Work Phone: Urea nitrogen [Mass/Vol] 16 mg/dL 7 - 20 mg/dL [facility] Work Phone: Hemogram (CBC) w/Auto Diffon 10-25-2020 Absolute Baso # 0.0 10*3/uL 0.0 - 0.2 10*3/uL [facility] Work Phone: Absolute Neut # 6.8 10*3/uL 1.8 - 7.0 10*3/uL [facility] Work Phone: Basophils/100 WBC (Bld) 0.3 % 0.0 - 2.0 % [facility] Work Phone: Eosinophils (Bld) [#/Vol] 0.0 10*3/uL 0.0 - 0.5 10*3/uL [facility] Work Phone: Eosinophils/100 WBC (Bld) 0.1 % Low 1.0 - 6.0 % [facility] Work Phone: Erythrocyte distribution width (RBC) [Ratio] 15.0 % High 11.5 - 14.5 % [employer] Work Phone: Granulocytes/100 WBC (Bld) 80.3 % High 40.0 - 80.0 % [facility] Work Phone: 1 Hematocrit (Bld) [Volume fraction] 41.9 % 35.0 - 47.0 % [facility] Work Phone: Hemoglobin (Bld) [Mass/Vol] 13.9 g/dL 11.7 - 16.0 g/dL [facility] Work Phone: 1 Interpretation and review of laboratory results Abnormal [facility] Work Phone: Lymphocytes (Bld) [#/Vol] 1.0 10*3/uL 1.0 - 4.3 10*3/uL [facility] Work Phone: 1 Lymphocytes/100 WBC (Bld) 12.4 % Low 20.0 - 40.0 % [employer] Phone: MCH (RBC) [Entitic mass] 30.6 pg 26. 0 - 34.0 pg [employer] Phone: MCHC (RBC) [Mass/Vol] 33.0 % 32.0 - 36.0 % [employer] Phone: 1 MCV (RBC) [Entitic vol] 92.6 fL 79.0 - 98.0 fL [employer] Phone: Monocytes (Bld) [#/Vol] 0.6 10*3/uL 0.0 - 0.8 10*3/uL [facility] Work Phone: Monocytes/100 WBC (Bld) 6.9 % 2.0 - 10.0 % [employer] Phone: Platelet mean volume (Bld) [Entitic vol] 7.5 fL 7.4 - 10.4 fL [facility] Work Phone: Platelets (Bld) [#/Vol] 290 10*3/uL 140 - 440 10*3/uL [facility] Work Phone: RBC (Bld) [#/Vol] 4.53 10*6/uL 3.80 - 5.2 0 10*6/uL [facility] Work Phone: 22 WBC (Bld) [#/Vol] 8.4 10*3/uL 3.6 - 10.7 10*3/uL [facility] Work Phone: Test Performed by [facility], [address] , [place], [place] [address] [facility] Work Phone: Hemogram w/ Autodiffon 10-25 Abs Baso Cnt 0.0 10*3/uL Normal 0.0-0.2 [facility] Comment on above: Performed By: #### T SGL #### [facility] [employer] Abs Neutrophile Cnt 6.8 10*3/uL Normal 1.8-7.0 [facility] Comment on above: Performed By: #### T SGL #### [facility] [employer] Basophils/100 WBC (Bld) 0.3 % Normal 0.0-2.0 [facility] Comment on above: Performed By: #### T SGL #### [facility] Eosinophils (Bld) [#/Vol] 0.0 10*3/uL Normal 0.0-0.5 [facility] Comment on above: Performed By: #### T SGL #### [facility] [employer] Eosinophils/100 WBC (Bld) 0.1 % Low 1.0-6.0 [facility] Comment on above: Performed By: #### T SGL #### [facility] [employer] Erythrocyte distribution width (RBC) [Ratio] 15.0 % High 11.5-14.5 [facility] Comment on above: Performed By: #### T SGL #### [facility] [employer] Granulocytes/100 WBC (Bld) 80.3 % High 40.0-80.0 [facility] Comment on above: Performed By: #### T SGL #### [facility] [employer] Hematocrit (Bld) [Volume fraction] 41.9 % Normal 35.0-47.0 [facility] Comment on above: Performed By: #### T SGL #### [facility] [employer] Hemoglobin (Bld) [Mass/Vol] 13.9 g/dL Normal 11.7-16.0 [facility] Comment on above: Performed By: #### T SGL #### [facility] Lymphocytes (Bld) [#/Vol] 1.0 10*3/uL Normal 1.0-4.3 [facility] Comment on above: Performed By: #### T SGL #### [facility] Lymphocytes/100 WBC (Bld) 12.4 % Low 20.0-40.0 [facility] Comment on above: Performed By: #### T SGL #### [facility] MCH (RBC) [Entitic mass] 30.6 pg Normal 26.0-34.0 [facility] Comment on above: Performed By: #### T SGL #### [facility] MCHC 33.0 % Normal 32.0-36.0 [facility] Comment on above: Performed By: #### T SGL #### [facility] MCV (RBC) [Entitic vol] 92.6 fL Normal 79.0-98.0 [facility] Comment on above: Performed By: #### T SGL #### [facility] Monocytes (Bld) [#/Vol] 0.6 10*3/uL Normal 0.0-0.8 [facility] Comment on above: Performed By: #### T SGL #### [facility] Monocytes/100 WBC (Bld) 6.9 % Normal 2.0-10.0 [facility] Comment on above: Performed By: #### T SGL #### [facility] Platelet mean volume (Bld) [Entitic vol] 7.5 fL Normal 7.4-10.4 [facility] Comment on above: Performed By: #### T SGL #### [facility] Platelets (Bld) [#/Vol] 290 10*3/uL Normal 140-440 [facility] Comment on above: Performed By: #### T SGL #### [facility] RBC (Bld) [#/Vol] 4.53 10*6/uL Normal 3.80-5.20 [facility] Comment on above: Performed By: #### T SGL #### [facility] WBC (Bld) [#/Vol] 8.4 10*3/uL Normal 3.6-10.7 [facility] Comment on above: Performed By: #### T SGL #### [facility] Magnesiumon 10-25-2020 Magnesium [Mass/Vol] 2.0 mg/dL Normal 1.6-2.3 [facility] Comment on above: Performed By: #### C VFLR #### [facility] [address] [place] [address] , [address] Magnesium [Mass/Vol] 2.0 mg/dL 1.6 - 2 .3 mg/dL [facility] Work Phone: Otheron 10-25-2020 Test Performed by [facility], [address] , [place], [place] [address] [facility] Work Phone: Troponin Ion 10-25-2020 Troponin I.cardiac [Mass/Vol] ng/mL Normal 0.000-0.034 [facility] Comment on above: Result Comment: . Performed By: #### C VFLR #### [facility] [address] [place] [address] , [address] Troponin x1on 10-25-2020 Troponin I.cardiac [Mass/Vol] ng/mL 0.000 - 0.034 ng/mL [facility] Work Phone: Comment on above: . Test Performed by [facility], [address] [place], [place] [address] [facility] Work Phone: US Lower Extremity Venous Ri [facility] 01-02-2020 Patient Name: ADORE WALTER ---Ultrasound--- Exam Date/Time 01/02/2020 13:09:33 EDT Exam VL Venous Duplex US Lower Ext Right Ordering Physician DO ARORA PAUL E. Accession Number [id number] CPT4 Codes 15141 () Reason For Exam . Report CLINICAL INFORMATION: Right lower extremity pain and swelling. Ultrasound and Doppler study of the veins of the right lower extremity are provided. There are no comparison studies. FINDINGS: The deep veins of the right lower extremity are normally compressible without evidence of clot. There is normal augmentation. The Doppler waveforms are normal. IMPRESSION: 1. No evidence of DVT. Report Dictated on --- Final --- Dictating Physician: MD MANZO JEFFREY Signed Date and Time: 01/02/2020 2:16 pm Signed by: MD MANZO JEFFREY Transcribed Date and Time: 01/02/2020 2:17 [place], [place] [facility] From [facility] - 01/02/2020 2:17 PM EDT Patient Name: ADORE WALTER ---Ultrasound--- Exam Date/Time 01/02/2020 13:09:33 EDT Exam VL Venous Duplex US Lower Ext Right Ordering Physician DO ARORA PAUL E. Accession Number [id number] CPT4 Codes 98551 () Reason For Exam . Report CLINICAL INFORMATION: Right lower extremity pain and swelling. Ultrasound and Doppler study of the veins of the right lower extremity are provided. There are no comparison studies. FINDINGS: The deep veins of the right lower extremity are normally compressible without evidence of clot. There is normal augmentation. The Doppler waveforms are normal. IMPRESSION: 1. No evidence of DVT. Report Dictated on --- Final --- Dictating Physician: MD MANZO JEFFREY Signed Date and Time: 01/02/2020 2:16 pm Signed by: MD MANZO JEFFREY Transcribed Date and Time: 01/02/2020 2:17 [place] Basic Metabolic PanelOrdered By: Wm Vargas on 08-24-2019 Anion gap [Moles/Vol] 10 mmol/L [facility] Work Phone: Calcium [Mass/Vol] 9.5 mg/dL 8.4 - 10. 4 mg/dL [facility] Work Phone: Chloride [Moles/Vol] 104 mmol/L 98 - 10 7 mmol/L [facility] Work Phone: CO2 [Moles/Vol] 25 mmol/L 22 - 30 mmol/L [facility] Work Phone: Creatinine [Mass/Vol] 0.62 mg/dL 0.52 - 1.25 mg/dL [facility] Work Phone: [phone] EGFR IF NonAfrican Central African >60.0 >60 mL/min [facility] Work Phone: [phone] Comment on above: Source- MDRD equatio n with creatinine calibration to IDMS(NKDEP) eGFR not recommended for drug dose adjustment GFR/1.73 sq M.predicted among blacks MDRD (S/P/Bld) [Vol rate/Area] mL/min/{1.73_m2} >60 mL/min [facility] Work Phone: [phone] Glucose [Mass/Vol] 90 mg/dL 70 - 100 mg/dL [facility] Work Phone: Potassium [Moles/Vol] 4.2 mmol/L 3.5 - 5.1 mmol/L [facility] Work Phone: [phone] Sodium [Moles/Vol] 139 mmol/L 135 - 145 mmol/L [facility] Work Phone: [phone] Urea nitrogen [Mass/Vol] 19 mg/dL 7 - 20 mg/dL [facility] Work Phone: [phone] Test Performed by [facility], [address] [place] [address] [facility] Work Phone: [phone] CBCOrdered By: Wm Vargas on 08-24-2019 Erythrocyte distribution width (RBC) [Ratio] 14.5 % 11.5 - 14.5 % [facility] Work Phone: [phone] Hematocrit (Bld) [Volume fraction] 44.3 % 35 - 47 % [facility] Work Phone: [phone] Hemoglobin (Bld) [Mass/Vol] 14.3 g/dL 11.7 - 16 g/dL [facility] Work Phone: [phone] MCH (RBC) [Entitic mass] 30.4 pg 26 - 34 pg [facility] Work Phone: [phone] MCHC 32.3 % 32 - 36 % [facility] Work Phone: [phone] MCV (RBC) [Entitic vol] 93.8 fL 79 - 98 fL [facility] Work Phone: [phone] Platelet mean volume (Bld) [Entitic vol] 8.0 fL 7.4 - 10.4 fL [facility] Work Phone: Platelets (Bld) [#/Vol] 279 10*3/uL 140 - 440 10*3/uL [facility] Work Phone: [phone] RBC (Bld) [#/Vol] 4.72 10*6/uL 3.8 - 5.2 10*6/uL [facility] Work Phone: [phone] WBC (Bld) [#/Vol] 5.7 10*3/uL 3.6 - 10.7 10*3/uL [facility] Work Phone: Test Performed by [facility], [address] [place], [place] [address] [facility] Work Phone: Basic Metabolic Panelon 10-0 Anion gap [Moles/Vol] 13 mmol/L [facility] [place] Calcium [Mass/Vol] 9.8 mg/dL 8.4 - 10. 4 mg/dL [place] Chloride [Moles/Vol] 105 mmol/L 98 - 10 7 mmol/L [place] CO2 [Moles/Vol] 23 mmol/L 22 - 30 mmol/L [place] Creatinine [Mass/Vol] 0.63 mg/dL 0.52 - 1.25 mg/dL [place] EGFR IF NonAfrican Central African >60.0 >60 mL/min [place] Comment on above: Source- MDRD equatio n with creatinine calibration to IDMS(NKDEP) eGFR not recommended for drug dose adjustment GFR/1.73 sq M predicted among blacks MDRD (S/P/Bld) [Vol rate/Area] mL/min/{1.73_m2} >60 mL/min [place] Glucose [Mass/Vol] 105 mg/dL High 70 - 100 mg/dL [place] Interpretation and review of laboratory results Abnormal [place] Potassium [Moles/Vol] 3.5 mmol/L 3.5 - 5.1 mmol/L [place] Sodium [Moles/Vol] 141 mmol/L 135 - 145 mmol/L [place] Urea nitrogen [Mass/Vol] 15 mg/dL 7 - 20 mg/dL [place] Test Performed by [facility], [facility] , [address] Head WO Contraston 2018 Patient Name: ADORE WALTER ---CT--- Exam Date/Time 05/04/2019 18:46:[address] Head or Brain w/o Contrast Ordering Physician ROMEO WEINER Accession Number [id number] CPT4 Codes 23505 () Reason For Exam HEAD INJURY MILD OR MODERATE ACUTE, NO NEUROLOGICAL DEFICIT Report CT head without contrast Clinical: Injury COMPARISON: None provided Noncontrast CT imaging of the brain was performed. There is no hydrocephalus and the basilar cisterns are patent. No midline shift or mass effect is identified. No sizable area of acute infarct is seen. No definite evidence of acute intracranial hemorrhage is noted. No abnormal brain parenchymal edema. Mild leukomalacia changes of the periventricular and subcortical white matter distributions. No sizable extra-axial fluid collections are seen. 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 No depressed skull fracture deformity is noted. No significant opacification of included paranasal sinuses. Focal soft tissue swelling along the left forehead scalp is noted. Orbits appear symmetric. IMPRESSION: No acute intracranial process. Mild chronic small vessel ischemic changes. Left forehead tissue swelling. Report Dictated on Workstation: [facility] --- Final --- Dictating Physician: MD PALACIOS BRIAN Signed Date and Time: 05/04/2019 7:03 pm Signed by: MD PALACIOS BRIAN Transcribed Date and Time: 05/04/2019 7:04 [place], [facility] Incoming Radiology Results From [facility] - 05/04/2019 7:04 PM EDT Patient Name: ADORE WALTER ---CT--- Exam Date/Time 05/04/2019 18:46:[address] Head or Brain w/o Contrast Ordering Physician ROMEO WEINER Accession Number [id number] CPT4 Codes 76984 () Reason For Exam HEAD INJURY MILD OR MODERATE ACUTE, NO NEUROLOGICAL DEFICIT Report CT head without contrast Clinical: Injury COMPARISON: None provided Noncontrast CT imaging of the brain was performed. There is no hydrocephalus and the basilar cisterns are patent. No midline shift or mass effect is identified. No sizable area of acute infarct is seen. No definite evidence of acute intracranial hemorrhage is noted. No abnormal brain parenchymal edema. Mild leukomalacia changes of the periventricular and subcortical white matter distributions. No sizable extra-axial fluid collections are seen. 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 No depressed skull fracture deformity is noted. No significant opacification of included paranasal sinuses. Focal soft tissue swelling along the left forehead scalp is noted. Orbits appear symmetric. IMPRESSION: No acute intracranial process. Mild chronic small vessel ischemic changes. Left forehead tissue swelling. Report Dictated on Workstation: [facility] --- Final --- Dictating Physician: MD PALACIOS BRIAN Signed Date and Time: 05/04/2019 7:03 pm Signed by: MD PALACIOS BRIAN Transcribed Date and Time: 05/04/2019 7:04 [place] Hemogram (CBC) w/Auto Diffon 05-04-2019 Absolute Baso # 0.1 10*3/uL 0 - 0.2 10*3/uL [place] Absolute Neut # 4.8 10*3/uL 1.8 - 7 10*3/uL [place] Basophils/100 WBC (Bld) 0.7 % 0 - 2 % [place] Eosinophils (Bld) [#/Vol] 0.1 10*3/uL 0 - 0.5 10*3/uL [place] Eosinophils/100 WBC (Bld) 0.8 % Low 1 - 6 % [place] Erythrocyte distribution width (RBC) [Ratio] 14.4 % 11.5 - 14.5 % [place] Granulocytes/100 WBC (Bld) 47.0 % 40 - 80 % [place] Hematocrit (Bld) [Volume fraction] 44.1 % 35 - 47 % [place] Hemoglobin (Bld) [Mass/Vol] 14.5 g/dL 11.7 - 16 g/dL [place] Interpretation and review of laboratory results Abnormal [place] Lymphocytes (Bld) [#/Vol] 4.6 10*3/uL High 1 - 4.3 10*3/uL [place] Lymphocytes/100 WBC (Bld) 44.7 % High 20 - 40 % [place] Comment on above: reran/rechecked MCH (RBC) [Entitic mass] 30.6 pg 26 - 34 pg [place] MCHC (RBC) [Mass/Vol] 32.8 % 32 - 36 % [place] MCV (RBC) [Entitic vol] 93.2 fL 79 - 98 fL [place] Monocytes (Bld) [#/Vol] 0.7 10*3/uL 0 - 0.8 10*3/uL [place] Monocytes/100 WBC (Bld) 6.8 % 2 - 10 % [place] Platelet mean volume (Bld) [Entitic vol] 7.9 fL 7.4 - 10.4 fL [place] Platelets (Bld) [#/Vol] 327 10*3/uL 140 - 440 10*3/uL [place] RBC (Bld) [#/Vol] 4.73 10*6/uL 3.8 - 5.2 10*6/uL [place] WBC (Bld) [#/Vol] 10.2 10*3/uL 3.6 - 10.7 10*3/uL [place] Test Performed by [facility], [address] , [address] Troponin x1on 05-04-2019 Troponin I.cardiac [Mass/Vol] ng/mL 0 - 0.034 ng/mL [place] Comment on above: . Test Performed by [facility] [employer] [facility], [address] , [address] XR KNEE LEFT (3 VIEWS)on Patient Name: ADORE WALTER ---Diagnostic Radiology--- Exam Date/Time 05/04/2019 18:33:48 EDT Exam CR Knee 3 Views Left Ordering Physician PinkyRichar ROMEO [employer] Accession Number [id number] CPT4 Codes 52082 () Reason For Exam fall with contusion Report LEFT KNEE 3 VIEWS CLINICAL INDICATION: fall, with contusion TECHNIQUE: 3 views of the left knee. COMPARISON: September,. FINDINGS: Diffuse osteopenia. 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 No acute fracture or dislocation. Pre and infrapatellar soft tissue edema. Soft tissue vascular calcifications. IMPRESSION: 1. No acute osseous abnormality. 2. Postsurgical change and soft tissue edema. RIGHT FOREARM 2 VIEWS CLINICAL INDICATION: fall, with contusion TECHNIQUE: 2 views of the right forearm. COMPARISON: None. FINDINGS: Diffuse osteopenia. No acute fracture or dislocation. Soft tissues grossly unremarkable. IMPRESSION: 1. No acute osseous abnormality. Report Dictated on Workstation: [facility] --- Final --- Dictating Physician: MD ARROYO WENDELL Signed Date and Time: 05/04/2019 7:15 pm Signed by: MD ARROYO WENDELL Transcribed Date and Time: 05/04/2019 7:16 [place], [facility] Incoming Radiology Results From [facility] - 05/04/2019 7:17 PM EDT Patient Name: ADORE WALTER ---Diagnostic Radiology--- Exam Date/Time 05/04/2019 18:33:48 EDT Exam CR Knee 3 Views Left Ordering Physician ROMEO WEINER Accession Number [id number] CPT4 Codes 96082 () Reason For Exam fall with contusion Report LEFT KNEE 3 VIEWS CLINICAL INDICATION: fall, with contusion TECHNIQUE: 3 views of the left knee. COMPARISON: September,. FINDINGS: Diffuse osteopenia. 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 No acute fracture or dislocation. Pre and infrapatellar soft tissue edema. Soft tissue vascular calcifications. IMPRESSION: 1. No acute osseous abnormality. 2. Postsurgical change and soft tissue edema. RIGHT FOREARM 2 VIEWS CLINICAL INDICATION: fall, with contusion TECHNIQUE: 2 views of the right forearm. COMPARISON: None. FINDINGS: Diffuse osteopenia. No acute fracture or dislocation. Soft tissues grossly unremarkable. IMPRESSION: 1. No acute osseous abnormality. Report Dictated on Workstation: [facility] --- Final --- Dictating Physician: MD ARROYO WENDELL Signed Date and Time: 05/04/2019 7:15 pm Signed by: MD ARROYO WENDELL Transcribed Date and Time: 05/04/2019 7:16 [facility], [place] XR RADIUS ULNA RIGHT (2 VIEW S)on 05-04-2019 Patient Name: ADORE WALTER ---Diagnostic Radiology--- Exam Date/Time 05/04/2019 18:33:48 EDT Exam CR Forearm 2 Views Right Ordering Physician ROMEO WEINER Accession Number [id number] CPT4 Codes 34662 () Reason For Exam fall with lac Report LEFT KNEE 3 VIEWS CLINICAL INDICATION: fall, with contusion TECHNIQUE: 3 views of the left knee. COMPARISON: September,. FINDINGS: Diffuse osteopenia. 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 No acute fracture or dislocation. Pre and infrapatellar soft tissue edema. Soft tissue vascular calcifications. IMPRESSION: 1. No acute osseous abnormality. 2. Postsurgical change and soft tissue edema. RIGHT FOREARM 2 VIEWS CLINICAL INDICATION: fall, with contusion TECHNIQUE: 2 views of the right forearm. COMPARISON: None. FINDINGS: Diffuse osteopenia. No acute fracture or dislocation. Soft tissues grossly unremarkable. IMPRESSION: 1. No acute osseous abnormality. Report Dictated on Workstation: [facility] --- Final --- Dictating Physician: MD ARROYO WENDELL Signed Date and Time: 05/04/2019 7:15 pm Signed by: MD ARROYO WENDELL Transcribed Date and Time: 05/04/2019 7:16 [facility], [place], [facility] - 05/04/2019 7:16 PM EDT Patient Name: ADORE WALTER ---Diagnostic Radiology--- Exam Date/Time 05/04/2019 18:33:48 EDT Exam CR Forearm 2 Views Right Ordering Physician ROMEO WEINER Accession Number [id number] CPT4 Codes 89855 () Reason For Exam fall with lac Report LEFT KNEE 3 VIEWS CLINICAL INDICATION: fall, with contusion TECHNIQUE: 3 views of the left knee. COMPARISON: September,. FINDINGS: Diffuse osteopenia. 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 No acute fracture or dislocation. Pre and infrapatellar soft tissue edema. Soft tissue vascular calcifications. IMPRESSION: 1. No acute osseous abnormality. 2. Postsurgical change and soft tissue edema. RIGHT FOREARM 2 VIEWS CLINICAL INDICATION: fall, with contusion TECHNIQUE: 2 views of the right forearm. COMPARISON: None. FINDINGS: Diffuse osteopenia. No acute fracture or dislocation. Soft tissues grossly unremarkable. IMPRESSION: 1. No acute osseous abnormality. Report Dictated on Workstation: [facility] --- Final --- Dictating Physician: MD ARROYO WENDELL Signed Date and Time: 05/04/2019 7:15 pm Signed by: MD ARROYO WENDELL Transcribed Date and Time: 05/04/2019 7:16 [place] Vital Signs Date Time Vital Sign Value Performing Clinician Facility 03-02-2025 09:38-0400 Body height 155 cm Paco Zuluaga MD Work Phone: [facility] 03-02-2025 09:38-0400 Body height 154.94 cm Paco Zuluaga MD Work Phone: [facility] 03-02-2025 09:38-0400 Body mass index (BMI) [Ratio] 23.7 kg/m2 Paco Zuluaga MD Work Phone: [facility] 03-02-2025 09:38-0400 Body weight 57 kg Paco Zuluaga MD Work Phone: [facility] 03-02-2025 09:38-0400 Body weight 56.7 kg Paco Zuluaga MD Work Phone: [facility] 03-02-2025 09:38-0400 BP SITE #1 Paco Zuluaga MD Work Phone: [facility] 03-02-2025 09:38-0400 Diastolic blood pressure 64 mm[Hg] Paco Zuluaga MD Work Phone: [facility] 03-02-2025 09:38-0400 HGHTCHNVIS Paco Zuluaga MD Work Phone: [facility] 03-02-2025 09:38-0400 Systolic blood pressure 120 mm[Hg] Paco Zuluaga MD Work Phone: [facility] 03-02-2025 09:38-0400 VITALSDONE Paco Zuluaga MD Work Phone: [facility] 02-09-2024 02:50-0400 Body temperature 98.4 [degF] Paco Schwarz MD Work Phone: [facility] 02-09-2024 02:50-0400 Diastolic blood pressure 84 mm[Hg] Paco Schwarz MD Work Phone: [facility] 02-09-2024 02:50-0400 Heart rate 127 /min Paco Schwarz MD Work Phone: [facility] 02-09-2024 02:50-0400 Respiratory rate 18 /min Paco Schwarz MD Work Phone: [facility] 02-09-2024 02:50-0400 SaO2% (BldA) [Mass fraction] 92 % Paco Schwarz MD Work Phone: [facility] 02-09-2024 02:50-0400 Systolic blood pressure 145 mm[Hg] Paco Schwarz MD Work Phone: [facility] 12-31-2023 11:21-0400 Body height 157.5 cm Brent Barakat MD Work Phone: [facility] [employer] 12-31-2023 11:21-0400 Body mass index (BMI) [Ratio] 21.95 kg/m2 Brent Barakat MD Work Phone: [facility] [employer] 12-31-2023 11:21-0400 Body weight 54.43 kg Brent Barakat MD Work Phone: [employer] 12-31-2023 11:21-0400 Diastolic blood pressure 51 mm[Hg] Brent Barakat MD Work Phone: [facility] [employer] 12-31-2023 11:21-0400 Heart rate 94 /min Brent Barakat MD Work Phone: [facility] [employer] 12-31-2023 11:21-0400 Systolic blood pressure 121 mm[Hg] Brent Barakat MD Work Phone: [facility] [employer] 11-15-2023 07:36-0400 Body temperature 97.3 [degF] Nohemi Arevalo MD Work Phone: [facility] [employer] 11-15-2023 07:36-0400 Diastolic blood pressure 60 mm[Hg] Nohemi Arevalo MD Work Phone: [employer] 11-15-2023 07:36-0400 Heart rate 85 /min Nohemi Arevalo MD Work Phone: [employer] 11-15-2023 07:36-0400 Respiratory rate 18 /min Nohemi Arevalo MD Work Phone: [facility] [employer] 11-15-2023 07:36-0400 SaO2% (BldA) [Mass fraction] 94 % Nohemi Arevalo MD Work Phone: [employer] 11-15-2023 07:36-0400 Systolic blood pressure 106 mm[Hg] Nohemi Arevalo MD Work Phone: [facility] [employer] 11-13-2023 17:00-0400 Body height 157.5 cm Nohemi Arevalo MD Work Phone: [employer] 11-13-2023 17:00-0400 Body mass index (BMI) [Ratio] 23.14 kg/m2 Nohemi Arevalo MD Work Phone: [employer] 11-13-2023 17:00-0400 Body weight 57.4 kg Nohemi Arevalo MD Work Phone: [employer] 10-29-2023 09:45-0400 Body temperature 96.4 [degF] Nohemi Arevalo MD Work Phone: [employer] 10-29-2023 09:45-0400 Diastolic blood pressure 77 mm[Hg] Nohemi Arevalo MD Work Phone: [employer] 10-29-2023 09:45-0400 Heart rate 70 /min Nohemi Arevalo MD Work Phone: [employer] 10-29-2023 09:45-0400 Respiratory rate 16 /min Nohemi Arevalo MD Work Phone: [employer] 10-29-2023 09:45-0400 SaO2% (BldA) [Mass fraction] 94 % Nohemi Arevalo MD Work Phone: [employer] 10-29-2023 09:45-0400 Systolic blood pressure 137 mm[Hg] Nohemi Arevalo MD Work Phone: [employer] 10-29-2023 03:02-0400 Body mass index (BMI) [Ratio] 25.3 kg/m2 Nohemi Arevalo MD Work Phone: [employer] 10-29-2023 03:02-0400 Body weight 60.74 kg Nohemi Arevalo MD Work Phone: [employer] 10-24-2023 12:17-0400 Body height 154.9 cm Nohemi Arevalo MD Work Phone: [employer] 10-24-2023 03:26-0400 SaO2% (BldA) [Mass fraction] 96.3 % Nohemi Arevalo MD Work Phone: [employer] Comment on above: Performed by CLIA ID: [id number] [place] ?Device: [id number] Construction Manager ID: [id number] 10-06-2021 08:19-0500 Body temperature 98.71 [degF] Rosette Flood MD Work Phone: [facility] 10-06-2021 08:19-0500 Diastolic blood pressure 65 mm[Hg] Rosette Flood MD Work Phone: [facility] 10-06-2021 08:19-0500 Heart rate 87 /min Rosette Flood MD Work Phone: [facility] 10-06-2021 08:19-0500 Respiratory rate 24 /min Rosette Flood MD Work Phone: [facility] 10-06-2021 08:19-0500 SaO2% (BldA) [Mass fraction] 93 % Rostete Flood MD Work Phone: [facility] 10-06-2021 08:19-0500 Systolic blood pressure 136 mm[Hg] Rosette Flood MD Work Phone: [facility] 09-29-2021 16:43-0500 Body temperature 98.2 [degF] Gerry Ruby MD Work Phone: [facility] 09-29-2021 16:43-0500 Diastolic blood pressure 53 mm[Hg] Gerry Ruby MD Work Phone: [facility] 09-29-2021 16:43-0500 Heart rate 82 /min Gerry Ruby MD Work Phone: [facility] 09-29-2021 16:43-0500 Respiratory rate 16 /min Gerry Ruby MD Work Phone: [facility] 09-29-2021 16:43-0500 SaO2% (BldA) [Mass fraction] 92 % Gerry Ruby MD Work Phone: [facility] 09-29-2021 16:43-0500 Systolic blood pressure 128 mm[Hg] Gerry Ruby MD Work Phone: [facility] 06-11-2021 13:30-0500 SaO2% (BldA) [Mass fraction] 98 % Nohemi Cuba MD Work Phone: [facility] 06-11-2021 13:15-0500 Diastolic blood pressure 74 mm[Hg] Nohemi Cuba MD Work Phone: [facility] 06-11-2021 13:15-0500 Heart rate 74 /min Nohemi Cuba MD Work Phone: [facility] 06-11-2021 13:15-0500 Respiratory rate 16 /min Nohemi Cuba MD Work Phone: [facility] 06-11-2021 13:15-0500 Systolic blood pressure 148 mm[Hg] Nohemi Cuba MD Work Phone: [facility] 06-11-2021 12:57-0500 Body temperature 97.81 [degF] Nohemi Cuba MD Work Phone: [facility] 06-11-2021 10:11-0500 Body height 154.9 cm Nohemi Cuba MD Work Phone: [facility] 06-11-2021 10:11-0500 Body mass index (BMI) [Ratio] 23.05 kg/m2 Nohemi Cuba MD Work Phone: [facility] 06-11-2021 10:11-0500 Body weight 55.34 kg Nohemi Cuba MD Work Phone: [facility] 06-05-2021 10:56-0400 Body height 154.9 cm Nohemi Cuba MD Work Phone: [facility] Work Phone: 06-05-2021 10:56-0400 Body mass index (BMI) [Ratio] 23.13 kg/m2 Nohemi Cuba MD Work Phone: [facility] Work Phone: 06-05-2021 10:56-0400 Body temperature 97.59 [degF] Nohemi Cuba MD Work Phone: [facility] Work Phone: 06-05-2021 10:56-0400 Body weight 55.52 kg Nohemi Cuba MD Work Phone: [facility] Work Phone: 06-05-2021 10:56-0400 Diastolic blood pressure 80 mm[Hg] Nohemi Cuba MD Work Phone: [facility] Work Phone: 06-05-2021 10:56-0400 Heart rate 70 /min Nohemi Cuba MD Work Phone: [place] Work Phone: 06-05-2021 10:56-0400 Respiratory rate 16 /min Nohemi Cuba MD Work Phone: [place] Work Phone: 06-05-2021 10:56-0400 SaO2% (BldA) [Mass fraction] 96 % Nohemi Cuba MD Work Phone: [place] Work Phone: 06-05-2021 10:56-0400 Systolic blood pressure 161 mm[Hg] Nohemi Cuba MD Work Phone: [place] Work Phone: 10-25-2020 15:45-0400 BP Diastolic 68 mm[Hg] Rosette WALLACE Work Phone: 10-25-2020 15:45-0400 BP Systolic 117 mm[Hg] Rosette WALLACE Work Phone: 10-25-2020 15:45-0400 Pulse (Heart Rate) 78 /min Rosette WALLACE Work Phone: 10-25-2020 15:45-0400 Pulse Oximetry 98 % Rosette WALLACE Work Phone: 10-25-2020 15:45-0400 Respiratory Rate 12 /min Rosette WALLACE Work Phone: 10-25-2020 12:58-0400 Body Temperature 98.1 [degF] Rosette WALLACE Work Phone: 08-31-2019 16:00-0500 Body temperature 97.11 [degF] [facility] Work [facility]: [facility] Work Phone: 08-31-2019 16:00-0500 Diastolic blood pressure 91 mm[Hg] Wm Sam DO Work Phone: [place] Work Phone: 08-31-2019 16:00-0500 Heart rate 79 /min Wm Sam DO Work Phone: [place] Work Phone: 08-31-2019 16:00-0500 Respiratory rate 18 /min Wm 3TEN8 DO Work Phone: [facility] Work Phone: 08-31-2019 16:00-0500 SaO2% (BldA) [Mass fraction] 93 % Wm 3TEN8 DO Work Phone: [place] Work Phone: 08-31-2019 16:00-0500 Systolic blood pressure 137 mm[Hg] Wm [employer] Work Phone: [place] Work Phone: 08-31-2019 13:37-0500 Body height 154.9 cm Wm 3TEN8 DO Work Phone: [facility] Work Phone: 08-31-2019 13:37-0500 Body mass index (BMI) [Ratio] 22.67 kg/m2 Wm [employer] Work Phone: [place] Work Phone: 08-31-2019 13:37-0500 Body weight 54.43 kg Wm 3TEN8 DO Work Phone: [facility] [address] Work Phone: 08-24-2019 10:35-0500 Diastolic blood pressure 76 mm[Hg] Wm Sam DO Work Phone: [place] Work Phone: 08-24-2019 10:35-0500 Heart rate 78 /min Wm [employer] Work Phone: [place] Work Phone: 08-24-2019 10:35-0500 Systolic blood pressure 154 mm[Hg] Wm Sam DO Work Phone: [employer] Work Phone: 08-24-2019 10:11-0500 Body temperature 97.39 [degF] Wm FloresGivey Phone: [employer] Work Phone: 08-24-2019 10:11-0500 SaO2% (BldA) [Mass fraction] 98 % Wm FloresGivey Phone: [employer] Work Phone: 08-24-2019 10:10-0500 Body height 154.9 cm Wm FloresGivey Phone: [employer] Phone: 08-24-2019 10:10-0500 Body mass index (BMI) [Ratio] 22.3 kg/m2 Wm M-Changa Phone: [employer] Phone: 08-24-2019 10:10-0500 Body weight 53.52 kg Wm FloresGivey Phone: [employer] Work Phone: 08-24-2019 10:10-0500 Respiratory rate 16 /min Wm FloresGivey Phone: [employer] Phone: 05-04-2019 21:19-0400 BP Diastolic 87 mm[Hg] [employer] [facility], [place] 05-04-2019 21:19-0400 BP Systolic 144 mm[Hg] [facility] [place] 05-04-2019 21:19-0400 Pulse (Heart Rate) 77 /min [facility], [place] 05-04-2019 21:19-0400 Respiratory Rate 15 /min [facility], [place] 05-04-2019 19:12-0400 Pulse Oximetry 97 % [facility] [place] [place] 05-04-2019 17:58-0400 BMI (Body Mass Index) 23.62 kg/m2 [facility] 05-04-2019 17:58-0400 Body Temperature 97.9 [degF] [facility] 05-04-2019 17:58-0400 Body weight 56.7 kg Romeo [facility]argent [facility] Encounters Encounter Date Encounter Type Care Provider Facility Start: 03-02-2025 In-person encounter Paco Zuluaga MD Work Phone: [facility] Work Phone: Start: 03-02-2025 Visit out of hours Paco Zuluaga MD Work Phone: [place]. Work Phone: Start: 01-01-2025 End: 01-01-[address] 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); Thyroid nodule; Age-related osteoporosis without current pathological fracture Start: 12-28-2024 End: 12-28-2024 ambulatory BRENT BARAKAT [facility] Start: 11-30-2024 End: 11-30-2024 Departed Referred Thais Ruiz - [address] Start: 11-30-2024 End: 11-30-2024 ambulatory Thais HICKS Facility:[facility] Start: 11-06-2024 End: 11-06-2024 Departed Referred Thais Ruiz - [address] Start: 11-06-2024 Registered Referred Thais Ruiz - [address] Start: 11-06-2024 End: 11-06-2024 ambulatory Thais HICKS Facility:[facility] Start: 10-26-2024 End: 10-26-[address] Chris Arora DO Work Phone: [facility] Work Phone: Start: 10-26-2024 End: 10-26-2024 [facility] [address] Start: 10-26-2024 End: 10-26-2024 ambulatory Thais HICKS Facility:[facility] Start: 09-04-2024 ambulatory Thais HICKS Facil ity:[facility] Start: 09-04-2024 Registered Referred Thais [facility]ner [facility] - [address] Start: 06-23-2024 End: 06-26-2024 Telephone encounter Brent Barakat MD Work Phone: [facility] Comment on above: Advice Only (Bill) Start: 06-23-2024 End: 06-23-2024 [facility] Start: 06-09-2024 End: 06-09-2024 Office outpatient visit 25 minutes Brent Barakat MD Work Phone: [facility] [place] Comment on above: Thyroid nodule (Prim blayne Dx); Other thyrotoxicosis without thyrotoxic crisis or storm; Age-related osteoporosis without current pathological fracture Start: 06-09-2024 End: 06-09-2024 ambulatory [facility] Start: 06-07-2024 End: 06-07-2024 ambulatory [facility] Start: 05-08-2024 End: 05-08-2024 ambulatory Thais HICKS Facility:[facility] Start: 04-24-2024 End: 04-24-2024 ambulatory Thais HICKS Facility:[facility] Start: 04-04-2024 ambulatory Thais HICKS Facil ity:[facility] Start: 2024 End: 02-09-2024 Emergency department patient visit Paco Oskvarek MD Work Phone: [facility] Comment on above: Fall, initial encoun ter (Primary Dx); Closed head injury, initial encounter; Sprain of left shoulder, unspecified shoulder sprain type, initial encounter Start: 01-04-2024 Telephone encounter Nicholas Dominique CORNEJO [facility] Comment on above: Results Start: 12-31-2023 Telephone encounter Brent estevez MD Work Phone: [facility] Comment on above: Orders; Appointment Start: 12-31-2023 End: 12-31-2023 Office outpatient visit 40 minutes Brent Barakat MD Work Phone: [facility] Comment on above: 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 Cardiac Progressive Care Unit PCU 2E Comment on above: NSTEMI (non-ST eleva aleksandra myocardial infarction) (CMS/HCC) (HCC) (Primary Dx); NSTEMI (non-ST elevated myocardial infarction) (CMS/HCC) (HCC) Start: 03-23-2023 End: 03-23-2023 ambulatory [facility] Work Phone: Start: 03-23-2023 End: 03-23-2023 Departed Referred [facility] - [address] Start: 02-04-2023 End: 02-04-2023 ambulatory [facility] Work Phone: Start: 02-04-2023 End: 02-04-2023 Departed Referred [facility] - [address] Start: 01-27-2023 End: 01-27-2023 ambulatory [facility] Work Phone: Start: 01-27-2023 End: 01-27-2023 Departed Referred [facility] - [address] Start: 01-27-2023 Registered Referred [facility] - [address] Start: 01-20-2023 End: 01-20-2023 Departed Referred [facility] - [address] Start: 08-06-2022 End: 08-06-2022 ambulatory [facility] Work Phone: Start: 08-06-2022 End: 08-06-2022 Departed Referred [facility] - [address] Start: 03-19-2022 End: 03-19-2022 ambulatory [facility] Work Phone: Start: 03-19-2022 End: 03-19-2022 Departed Referred [facility] - [address] Start: 12-11-2021 End: 12-11-2021 Departed Referred [facility] - [address] Start: 12-11-2021 Registered Referred [facility] - [address] Start: 10-16-2021 End: 10-16-2021 Departed Referred [facility] - [address] Start: 10-01-2021 End: 10-06-2021 Evaluation and management of inpatient Rosette Flood MD Work Phone: [facility] Comment on above: Faith-prosthetic femo ral shaft fracture -distal (Primary Dx) Start: 09-24-2021 End: 09-29-2021 Evaluation and management of inpatient Gerry Ruby MD Work Phone: [facility] Comment on above: Closed displaced com minuted fracture of shaft of left femur, initial encounter ([facility]) (Primary Dx) Start: 06-11-2021 End: 06-11-2021 Subsequent hospital visit by physician Nohemi Cuba MD [facility] Comment on above: Arrived Start: 06-05-2021 End: 06-05-2021 Subsequent hospital visit by physician Nohemi Cuba MD Work Phone: [facility] Pre-Admit Testing Comment on above: Arrived Start: 01-23-2021 End: 01-23-2021 Subsequent hospital visit by physician Holland Leiva MD Work Phone: [facility] Nuclear Medicine Comment on above: LV dysfunction; Ectopic cardiac beats; Thoracic aortic aneurysm without rupture (HCC); Aneurysm of heart Start: 12-12-2020 End: 12-12-2020 Subsequent hospital visit by physician Chris Arora DO Work Phone: [facility] Comment on above: Other specified symp toms and signs involving the circulatory and respiratory systems; Bruit of right carotid artery; Other premature depolarization; Localized edema; Ectopic cardiac beats; Bilateral leg edema Start: 10-25-2020 End: 10-25-2020 Emergency department patient visit Rosette Guzmán Work Phone: [facility] ED Comment on above: Compression fracture of L5 vertebra, initial encounter ([facility]) (Primary Dx); Fall on same level from slipping, tripping or stumbling, initial encounter; Constipation, unspecified constipation type Start: 01-02-2020 End: 01-02-2020 Subsequent hospital visit by physician Chris Arora Work Phone: [facility] Comment on above: Right leg pain; Leg edema Start: 08-31-2019 End: 08-31-2019 Subsequent hospital visit by physician Wm Vargas DO [facility] Comment on above: Benign neoplasm of l arynx (Primary Dx) Start: 08-24-2019 End: 08-24-2019 Subsequent hospital visit by physician Wm Vargas DO Work Phone: [facility]-Admit [facility] Comment on above: Arrived Start: 05-04-2019 End: 05-04-2019 Emergency department patient visit Romeo Sargent Work Phone: [facility] ED Comment on above: Injury of head, init ial encounter (Primary Dx); Laceration of scalp, initial encounter; Near syncope; Fall, initial encounter; Contusion of knee, unspecified laterality, initial encounter; Skin tear of right forearm without complication, initial encounter Procedures Date Procedure Procedure Detail Performing Clinician Start: 03-02-2025 Blood pressure withi n normal parameters - no follow-up required Paco Zuluaga MD Work Phone: Start: 03-02-2025 BMI documented withi n normal parameters - no follow-up plan is required Paco Zuluaga MD Work Phone: Start: 03-02-2025 Current tobacco non- user cad cap copd pv dm Paco Zuluaga MD Work Phone: Start: 03-02-2025 Documentation of cur rent medications Paco Zuluaga MD Work Phone: Start: 03-02-2025 Pain assessment docu mented as positive - follow-up documented Paco Zuluaga MD Work Phone: Start: 11-06-2024 Total iron binding c apacity measurement Dr. Chris Arora DO Work Phone: Start: 11-06-2024 Vitamin D, 25-hydrox y measurement Dr. Chris Arora DO Work Phone: Comment on above: Vitamin D StatusDefi ciency: <20 ng/mL (50nmol/L)Insufficiency: 20-30 ng/mL (50-75 nmol/L)Sufficiency: 30-100 ng/mL (75-250 nmol/L)Toxicity: >100 ng/mL (>250 nmol/L) Start: 2024 End: 2024 Radex shoulder complete minimum 2 views Paco Schwarz MD Work Phone: Start: 2024 Ct cervical spine w/ o contrast material Paco Schwarz MD Work Phone: Start: 2024 Ct head/brain w/o co ntrast material Paco Schwarz MD Work Phone: Start: 12-16-2023 Thyrotropin [Units/v olume] in Serum or Plasma Nicholas Fox CLEMENTE Start: 11-14-2023 Us soft tissue head & neck real time imge docm Brent Barakat MD Work Phone: Start: 11-14-2023 Basic metabolic pane l calcium total Travis Lawrence DO Work Phone: Start: 11-13-2023 Mri brain brain stem w/o contrast material Travis Lawrence DO Work Phone: Start: 11-13-2023 Radiologic exam abdo men 1 view Traivs Lawrence DO Work Phone: Start: 11-13-2023 Culture bacterial quanttative colony count urine Aidan Summers MD Work Phone: Start: 11-13-2023 MEDICATION ASSISTED TREATMENT PANEL Sully Kuzmin DO Work Phone: Start: 11-13-2023 Urinalysis complete panel - Urine Aidan Summers MD Work Phone: Start: 11-13-2023 Ct head/brain w/o co ntrast material Aidan Summers MD Work Phone: Start: 11-13-2023 Radiologic exam ches t single view Aidan Summers MD Work Phone: Start: 11-13-2023 Blood gases any comb ination ph pco2 po2 co2 hco3 Aidan Summers MD Work Phone: Start: 11-13-2023 C-reactive protein Jay is Stefan Lawrence DO Work Phone: Start: 11-13-2023 Comprehensive metabo lic panel Aidan Summers MD Work Phone: Start: 11-13-2023 Ecg routine ecg w/le ast 12 lds trcg only w/o i&r Aidan Summers MD Work Phone: Start: 11-13-2023 Thyrotropin [Units/v olume] in Serum or Plasma Nohemi Arevalo MD Work Phone: Start: 10-29-2023 IR CVC PICC PLACEMENT Lissy Casarez DO Work Phone: Start: 10-29-2023 Comprehensive metabo lic panel Tova Goss DO Work Phone: Start: 10-28-2023 Comprehensive metabo lic panel Tova Goss DO Work Phone: Start: 10-27-2023 Comprehensive metabo lic panel Tova Goss DO Work Phone: Start: 10-26-2023 Bacteria identified in Blood by Culture Tova Goss DO Work Phone: Start: 10-26-2023 Comprehensive metabo lic panel Tova Goss DO Work Phone: Start: 10-26-2023 Drug screen quantita tive vancomycin Aaron Mejia 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 Work Phone: Start: 10-25-2023 Smr prim src gram/gi emsa stain bct fungi/cell Tova Goss DO Work Phone: Start: 10-25-2023 Comprehensive metabo lic panel Tova Goss DO Work Phone: Start: 10-25-2023 Drug screen quantita tive vancomycin Aaron Mejia 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 [employer]IR[employer] Work Phone: Start: 10-24-2023 TTE w or wo fol wcon,Doppler Aaron Mejia 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 CHAIRMAN Work Phone: Start: 10-24-2023 Culture bacterial quanttative colony count urine Shima Claros DO Work Phone: Start: 10-24-2023 Urinalysis complete panel - Urine Aaron Mejia 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 CHAIR[employer] Work Phone: Start: 10-24-2023 Thromboplastin time partial plasma/whole blood Aaron Mejia 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 CHAIRMAN Work Phone: Start: 10-24-2023 Ecg routine ecg w/le ast 12 lds trcg only w/o i&r Aaron Mejia 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 CHAIRMAN Work Phone: Start: 10-24-2023 End: 10-24-2023 Comprehensive metabolic panel Tova Goss DO Work Phone: Start: 10-24-2023 End: 10-24-2023 Blood gases any combination ph pco2 po2 co2 hco3 Casey Alonso MD Work Phone: Start: 10-24-2023 Radiologic exam ches t single view Casey Alonso MD Work Phone: Start: 10-24-2023 End: 10-24-2023 Assay of free thyroxine Aaron Mejia 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 [employer] Work Phone: Start: 10-24-2023 HCS CENTRAL VENOUS C ATHETER TRIPLE LUMEN Aaron Mejia 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 CHAIRMAN Work Phone: Start: 10-24-2023 End: 10-24-2023 Artl cathj/cannulj mntr/transfusion spx prq Aaron Mejia 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 CHAIRMAN Work Phone: Start: 10-24-2023 Assay of troponin quantitative Shima Man Valentin DO Work Phone: Start: 10-24-2023 Bacteria identified in Blood by Culture Aaron Mejia 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 CHAIRMAN Work Phone: Start: 10-24-2023 BLOOD CULTURE IDENTIFICATION - ANAEROBIC Aaron Mejia 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 CHAIRMAN Work Phone: Start: 10-23-2023 Respiratory pathogen s DNA and RNA panel - Nasopharynx by MARVIN with non-probe detection Shima EscalanteRemymary jane DO Work Phone: Start: 10-23-2023 Thromboplastin time partial plasma/whole blood Aaron Mejia 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 CHAIRMAN Work Phone: Start: 10-23-2023 Ct angio abd&plvis c ntrst mtrl w/wo cntrst img Shima RodriguezN[facility] [place] [place] DO Work Phone: Start: 10-23-2023 Ct head/brain w/o co ntrast material [facility] DO Work Phone: Start: 10-23-2023 Radiologic exam ches t single view Shima RodriguezNuru [facility] [place] DO Work Phone: Start: 10-23-2023 End: 10-23-2023 Comprehensive metabolic panel Shmia RodriguezNe[facility] DO Work Phone: Start: 10-23-2023 Ecg routine ecg w/le ast 12 lds trcg only w/o i&r Nohemi Arevalo MD Work Phone: Start: 10-06-2021 POCT COVID-19, ANTIGEN Sayra Arteaga 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 CHAIRMAN Work Phone: Start: 10-06-2021 Assay of magnesium Tristian Watkins MD Work Phone: Start: 10-06-2021 BASIC METABOLIC PANE L W/ REFLEX TO MG FOR LOW K Mian Watkins MD Work Phone: Start: 10-03-2021 Gluc bld gluc mntr d ev cleared fda spec home use Guillermo Grigsby MD Work Phone: Start: 10-03-2021 Gluc bld gluc mntr d ev cleared fda spec home use Guillermo Grigsby MD Work Phone: Start: 10-03-2021 Gluc bld gluc mntr d ev cleared fda spec home use Guillermo Grigsby MD Work Phone: Start: 10-03-2021 Basic metabolic pane l calcium total Liane Raffemisha 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 CHAIRMAN Work Phone: Start: 10-02-2021 Gluc bld gluc mntr d ev cleared fda spec home use Guillermo Grigsby MD Work Phone: Start: 10-02-2021 ADD ON LAB TEST Liane agee 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 CHAIRMAN Work Phone: Start: 10-02-2021 Gluc bld gluc mntr d ev cleared fda spec home use Rosette Flood MD Work Phone: Start: 10-02-2021 Assay of osmolality urine Liane Valero 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 CHAIRMAN Work Phone: Start: 10-02-2021 Culture bacterial quanttative colony count urine Rosette Flood MD Work Phone: Start: 10-02-2021 Urnls dip stick/tabl et rgnt auto w/o microscopy Liane Valero 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 CHAIRMAN Work Phone: Start: 10-02-2021 ADD ON LAB TEST Liane agee 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 CHAIRMAN Work Phone: Start: 10-02-2021 Gluc bld gluc mntr d ev cleared fda spec home use Guillermo Grigsby MD Work Phone: Start: 10-02-2021 Blood count complete auto&auto difrntl wbc Guillermo Grigsby MD Work Phone: Start: 10-02-2021 Ct lower extremity w /o contrast material Chi Betts MD Work Phone: Start: 10-01-2021 Antibody screen Rosette Flood MD Work Phone: Start: 10-01-2021 Blood typing serologic abo Chi Betts MD Work Phone: Start: 10-01-2021 Prothrombin time Dimple Betts MD Work Phone: Start: 10-01-2021 Ecg routine ecg w/le ast 12 lds w/i&r Chi Betts MD Work Phone: Start: 10-01-2021 Radiologic examinati on femur minimum 2 views Nohemi Araiza MD Work Phone: Start: 10-01-2021 End: 10-01-2021 Radex hip unilateral with pelvis 2-3 views Rosette Flood MD Work Phone: Start: 10-01-2021 Chest x-ray 1 view frontal Rosette Flood MD Work Phone: Start: 10-01-2021 COVID-19, FLU A/B, A ND RSV COMBO Rosette Flood MD Work Phone: Start: 10-01-2021 Ct head/brain w/o co ntrast material Rosette Flood MD Work Phone: Start: 10-01-2021 End: 10-01-2021 Basic metabolic panel calcium total Rosette Flood MD Work Phone: Start: 09-29-2021 COVID-19 Oscar Usha lunden DO Work Phone: Start: 09-28-2021 BASIC METABOLIC PANE L W/ REFLEX TO MG FOR LOW K Oscar Odilia DO Work Phone: Start: 09-28-2021 Blood count complete automated Oscar Odilia DO Work Phone: Start: 09-27-2021 Radex ribs unilatera l 2 views Oscar Odilia DO Work Phone: Start: 09-27-2021 BASIC METABOLIC PANE L W/ REFLEX TO MG FOR LOW K Oscar Odilia DO Work Phone: Start: 09-27-2021 Blood count complete auto&auto difrntl wbc Grecia Barkley MD Work Phone: Start: 09-26-2021 BASIC METABOLIC PANE L W/ REFLEX TO MG FOR LOW K Oscar Odilia DO Work Phone: Start: 09-26-2021 Blood count complete auto&auto difrntl wbc Grecia Barkley MD Work Phone: Start: 09-25-2021 Radiologic examinati on femur minimum 2 views Grecia Barkley MD Work Phone: Start: 09-25-2021 OPERATIVE REPORT 3m Sca nning Start: 09-25-2021 Antibody screen Gerry Ruby MD Work Phone: Start: 09-25-2021 Basic metabolic pane l calcium total French Freire MD Work Phone: Start: 09-25-2021 Blood typing serologic abo French Freire MD Work Phone: Start: 09-25-2021 PROTIME/INR & PTT French Freire MD Work Phone: Start: 09-24-2021 Ecg routine ecg w/le ast 12 lds w/i&r Chi Betts MD Work Phone: Start: 09-24-2021 Chest x-ray 1 view frontal Chi Betts MD Work Phone: Start: 09-24-2021 Radex hip unilateral with pelvis 2-3 views Gerry Ruby MD Work Phone: Start: 09-11-2021 Lipid 1996 panel - S marika or Plasma Nohemi Arevalo MD Work Phone: Start: 06-11-2021 OPERATIVE REPORT 3m Sca nning Start: 01-23-2021 Myocardial spect mul tiple studies Holland Leiva MD Work Phone: Start: 12-12-2020 Echo tthrc r-t 2d w/wom-mode compl spec&colr d Chris Arora DO Work Phone: Start: 12-12-2020 Duplex scan extracra nial art compl bi study Chris Arora DO Work Phone: Start: 10-25-2020 Ct angiography pelvi s w/contrast/noncontrast Rosette Guzmán Work Phone: Start: 10-25-2020 Ct lumbar spine w/o contrast material Rosette Guzmán Work Phone: Start: 10-25-2020 Assay of magnesium Ernesto Guzmán Work Phone: Start: 10-25-2020 Assay of troponin quantitative Rosette Guzmán Work Phone: Start: 10-25-2020 Blood count complete auto&auto difrntl wbc Rosette Guzmán Work Phone: Start: 10-25-2020 Comprehensive metabo lic panel Rosette Guzmán Work Phone: Start: 01-02-2020 Dup-scan xtr veins unilateral/limited study Chris Arora Work Phone: Start: 08-31-2019 OPERATIVE REPORT 3m Sca nning Start: 08-24-2019 Basic metabolic pane l calcium total Samson Hanna MD Work Phone: Start: 05-04-2019 Ct head/brain w/o co ntrast material [facility] Work Phone: Start: 05-04-2019 Radex forearm 2 views N [employer] IPraquel Yuan Jini Work Phone: Start: 05-04-2019 Radiologic examinati on knee 3 views MONOCO Work Phone: Start: 05-04-2019 Assay of troponin quantitative Romeo Lissy Jini Work Phone: Start: 05-04-2019 Basic metabolic pane l calcium total [facility] Work Phone: Start: 05-04-2019 Blood count complete auto&auto difrntl wbc Romeo Yuan Jini Work Phone: Plan of Treatment Date Care Activity Detail Author Start: 09-11-2026 Lipid panel Lipid Panel [facility] [employer]er[employer]M Start: 04-02-2025 Influenza vaccination Influenza Vaccine (Season Ended) [facility] [employer] Start: 12-28-2024 End: 12-28-2024 Telemedicine consultation with patient 12/28/2024 10:20 AM EDT Telemedicine [facility] Endocrinology [facility] [address] [place] [address] Brent Barakat MD [address] [place] [address] [facility] Endocrinology - [place] Start: 12-15-2024 Thyroid stimulating hormone measurement TSH Level [facility] Start: 11-12-2024 Thyroid stimulating hormone measurement TSH Level [facility] Start: 09-09-2024 End: 06-09-2025 Thyrotropin [Units/volume] in Serum or Plasma TSH Lab Routine Other thyrotoxicosis without thyrotoxic crisis or storm Expected: 09/09/2024, Expires: 06/09/2025 [facility] Work Phone: Comment on above: Expected: 09/09/2024, Expires: Start: 09-09-2024 End: 06-09-2025 Thyroxine (T4) free [Mass/volume] in Serum or Plasma T4, free Lab Routine Other thyrotoxicosis without thyrotoxic crisis or storm Expected: 09/09/2024, Expires: 06/09/2025 [facility] Comment on above: Expected: 09/09/2024, Expires: Start: 09-09-2024 End: 06-09-2025 Triiodothyronine (T3) Free [Mass/volume] in Serum or Plasma T3, free Lab Routine Other thyrotoxicosis without thyrotoxic crisis or storm Expected: 09/09/2024, Expires: 06/09/2025 [facility] Comment on above: Expected: 09/09/2024, Expires: Start: 08-02-2024 Medicare Advantage Annual Wellness Visit Medicare Advantage Annual Wellness Visit [facility] Start: 06-09-2024 End: 06-09-2024 Telemedicine consultation with patient 06/09/2024 4:00 PM EST Telemedicine [facility] Endocrinology [address] [place] [address] Brent Barakat MD [address] [place] [address] [facility] Endocrinology Start: 05-01-2024 End: 12-30-2024 Comprehensive metabolic 1998 panel - Serum or Plasma Comprehensive metabolic panel Lab Routine Other thyrotoxicosis without thyrotoxic crisis or storm Expected: 05/01/2024, Expires: 12/30/2024 [facility] Comment on above: Expected: 05/01/2024, Expires: Start: 05-01-2024 End: 12-30-2024 Thyrotropin [Units/volume] in Serum or Plasma TSH Lab Routine Other thyrotoxicosis without thyrotoxic crisis or storm Expected: 05/01/2024, Expires: 12/30/2024 [facility] Comment on above: Expected: 05/01/2024, Expires: Start: 05-01-2024 End: 12-30-2024 Thyroxine (T4) free [Mass/volume] in Serum or Plasma T4, free Lab Routine Other thyrotoxicosis without thyrotoxic crisis or storm Expected: 05/01/2024, Expires: 12/30/2024 [facility] Comment on above: Expected: 05/01/2024, Expires: Start: 05-01-2024 End: 12-30-2024 Triiodothyronine (T3) Free [Mass/volume] in Serum or Plasma T3, free Lab Routine Other thyrotoxicosis without thyrotoxic crisis or storm Expected: 05/01/2024, Expires: 12/30/2024 [facility] Comment on above: Expected: 05/01/2024, Expires: Start: 04-24-2024 End: 12-30-2024 US Thyroid gland US thyroid Imaging Routine Thyroid nodule Expected: 04/24/2024, Expires: 12/30/2024 [facility] Work Phone: Comment on above: Expected: 04/24/2024, Expires: Start: 04-24-2024 End: 04-24-2024 Patient encounter procedure 04/24/2024 9:00 AM EDT Appointment [facility] Imaging [address] [place] [address] [place] [phone] Brent Barakat MD [address] [place] [address] [facility] US Imaging Start: 04-02-2024 COVID-19 Vaccine () COVID-19 Vaccine () [facility] Start: 04-02-2024 Influenza vaccination [facility] Start: 12-31-2023 End: 12-31-2023 Patient encounter procedure 12/31/2023 11:40 AM EDT Office Visit [facility] Endocrinology [address] [place] [address] Brent Barakat MD [address] [place] [address] [facility]ocrinology Start: 12-28-2023 End: 11-27-2024 Thyrotropin [Units/volume] in Serum or Plasma TSH Lab Routine Other thyrotoxicosis without thyrotoxic crisis or storm Expected: 12/28/2023, Expires: 11/27/2024 [facility] Work Phone: Comment on above: Expected: 12/28/2023, Expires: Start: 12-28-2023 End: 11-27-2024 Thyroxine (T4) free [Mass/volume] in Serum or Plasma T4, free Lab Routine Other thyrotoxicosis without thyrotoxic crisis or storm Expected: 12/28/2023, Expires: 11/27/2024 [facility] Comment on above: Expected: 12/28/2023, Expires: Start: 12-28-2023 End: 11-27-2024 Triiodothyronine (T3) Free [Mass/volume] in Serum or Plasma T3, free Lab Routine Other thyrotoxicosis without thyrotoxic crisis or storm Expected: 12/28/2023, Expires: 11/27/2024 [facility] Comment on above: Expected: 12/28/2023, Expires: Start: 12-07-2023 End: 12-07-2023 Patient encounter procedure 12/07/2023 11:45 AM EDT Office Visit [facility] Cardiology [address] [place] [address] Karlee Fernandez, 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 [address] [place] [phone] [facility] Cardiology Start: 08-02-2023 Medicare Advantage Annual Wellness Visit Medicare Advantage Annual Wellness Visit [facility] Start: 04-02-2023 COVID-19 Vaccine () COVID-19 Vaccine ( season) [facility] Start: 04-02-2023 Influenza vaccination Influenza Vaccine (#1) [facility] Start: 10-06-2022 Creatinine measurement Creatinine monitoring [facility] Start: 10-06-2022 [facility] Start: 09-28-2022 Creatinine measurement Creatinine monitoring [facility] Start: 09-28-2022 Potassium monitoring Potassium monitoring [facility] Start: 09-11-2022 Lipid panel [facility] screen [facility] Start: 09-09-2022 Depression Screen Depression Screen [facility] Start: 09-09-2022 Influenza vaccination Flu vaccine (#1) [facility] Comment on above: Postponed from 04/02/2021 (Patient Refus ed) Start: 04-10-2022 Creatinine measurement Creatinine monitoring [facility] Start: 04-10-2022 Potassium monitoring Potassium monitoring [facility] Start: 10-25-2021 Creatinine measurement Creatinine monitoring [facility] Work Phone: Start: 10-25-2021 Potassium monitoring Potassium monitoring [facility] Work Phone: Start: 06-20-2021 Annual Wellness Visit (AWV) Annual Wellness Visit (AWV) [facility] Start: 06-19-2021 Influenza vaccination [facility] Work Phone: Comment on above: Postponed from 04/02/2020 (Patient Refus ed) Postponed from 04/02 (Patient Refused) Start: 06-17-2021 End: 06-17-2021 Patient encounter procedure [facility] Plastic Surgery [place] Start: 06-11-2021 Subsequent hospital visit by physician 06/11/2021 Hospital Encounter General Surgery Nohemi Cuba MD [address] [place] [address] [facility] Surgery Start: 04-18-2021 End: 04-18-2021 Patient encounter procedure 04/18/2021 Office Visit Cardiology Holland Leiva MD [address] [address] [phone] [facility] Start: 04-02-2021 Influenza vaccination Flu vaccine (#1) [facility] Start: 03-05-2021 COVID-19 Vaccine (3 - Booster for Moderna series) COVID-19 Vaccine (3 - Booster for Moderna series) [facility] Start: 12-12-2020 End: 12-12-2020 Office Visit 12/12/2020 Office Visit [facility] Chris Arora DO [address] [place] [address] [phone] [facility] Start: 11-18-2020 End: 11-18-2020 Office Visit 11/18/2020 Office Visit [facility] Chris Arora DO [address] [place] [address] [phone] [facility] Start: 08-24-2020 Creatinine measurement Creatinine monitoring [facility] [place] Start: 08-24-2020 Potassium monitoring Potassium monitoring [facility], [place] Start: 06-19-2020 Influenza vaccination [facility] Work Phone: Comment on above: Postponed from 04/02/2020 (Patient Refus ed) Postponed from 04/02 (Patient Refused) Start: 09-19-2019 End: 09-19-2019 Patient encounter procedure 09/19/2019 Office Visit [facility] Chris Arora DO [address] [place] [address] [phone] [facility] Start: 08-31-2019 End: 08-31-2019 Patient encounter procedure 08/31/2019 Appointment General Surgery Wm Vargas DO [address] [place] [address] [phone] [facility] Start: 08-17-2019 End: 08-17-2019 Office Visit 08/17/2019 Office Visit Urology Jane Ching PA-C [address] [place] [address] [address] [place] [address] [phone] [facility] [place] Start: 08-08-2019 End: 08-08-2019 Appointment 08/08/2019 Appointment Radiology Jane Ching PA-C [address] [place] [address] [phone] [facility] Start: 06-19-2019 End: 06-19-2019 Office Visit 06/19/2019 Office Visit Family Medicine Chris Arora, [address] [place] [address] [phone] [facility] Start: 04-02-2019 Influenza vaccination Flu vaccine (#1) [place] Start: 01-19-2019 Annual Wellness Visit (AWV) Annual Wellness Visit (AWV) [place] Start: 05-14-2018 Lipid panel Lipid screen [facility] Start: 05-14-2018 Lipid screen Lipid screen [place] Start: 09-29-2017 Pneumococcal 65+ years Vaccine (2 of 2 - PCV13) Pneumococcal 65+ years Vaccine (2 of 2 - PCV13) [place] Start: 09-29-2017 Pneumococcal Vaccine: 50+ Years (2 of 2 - PCV) Pneumococcal Vaccine: 50+ Years (2 of 2 - PCV) [facility] Start: 09-29-2017 Pneumococcal Vaccine: 65+ Years (2 of 2 - PCV) Pneumococcal Vaccine: 65+ Years (2 of 2 - PCV) [facility] Start: 07-24-2017 Screening for osteoporosis Bone Density Scan [facility] Start: 02-09-2012 RSV Immunization for Adults (1 - 1-dose 75+ series) RSV Immunization for Adults (1 - 1-dose 75+ series) [facility] Start: 1997 RSV Immunization aged 60 or older (1 - 1-dose 60+ series) RSV Immunization aged 60 or older (1 - 1-dose 60+ series) [facility] Start: 1987 Shingles Vaccine (1 of 2) Shingles Vaccine (1 of 2) [facility] Start: 1987 Zoster Vaccines (1 of 2) Zoster Vaccines (1 of 2) [facility] Start: 02-09-1956 DTaP/Tdap/Td vaccine (1 - Tdap) DTaP/Tdap/Td vaccine (1 - Tdap) [facility] Start: 02-09-1956 DTaP/Tdap/Td Vaccines (1 - Tdap) DTaP/Tdap/Td Vaccines (1 - Tdap) [facility] Start: 1949 COVID-19 Vaccine (1) COVID-19 Vaccine (1) [facility] Start: 1949 Depression Screening Depression Screening [facility] Start: 02-09-1948 DTaP/Tdap/Td vaccine (1 - Tdap) DTaP/Tdap/Td vaccine (1 - Tdap) [facility] Work Phone: Start: 1937 Examination of skin Derm Melanoma Skin Check [facility] Start: 1937 Screening for osteoporosis Bone Density Scan [facility] Start: 1937 Thyroid Nodule Ultrasound Thyroid Nodule Ultrasound [facility] CampaignerCRM Bacteria identified in Blood by Culture [facility] [employer] Work Phone: Bacteria identified in Urine by Culture Urine culture Microbiology STAT 11/13/2023 4:54 PM EDT [facility] CampaignerCRM [facility] Work Phone: Basic Metabolic Pane l w/ Reflex to MG Basic Metabolic Panel w/ Reflex to MG Lab Routine Daily until discontinued starting 10/06/2021, 1 completed [employer] Work Phone: Comment on above: Daily until discontinued starting 2021, 1 completed CBC W Auto Different ial panel - Blood CBC with Auto Differential Lab Routine Daily until discontinued starting 10/06/2021, 1 completed [employer] Work Phone: Comment on above: Daily until discontinued starting 2021, 1 completed End: 09-25-2021 FL Greater Than 1 Hour [facility] Work Phone: Comment on above: Once for 1 Occurrences starting 09/25/19 22 until 09/25/2021 Incentive spirometry Incentive s pirometry Respiratory Care Routine Q1H PRN until discontinued starting 08/31/2019 [facility] Work Phone: Comment on above: Q1H PRN until discontinued starting 08/04 Initiate Oxygen Ther apy Protocol Initiate Oxygen Therapy Protocol Respiratory Care Routine Daily until discontinued starting 08/31/2019 [employer] Phone: Comment on above: Daily until discontinued starting 2019 Nasal Cannula Oxygen Nasal Cannu la Oxygen Respiratory Care Routine As Needed until discontinued starting 06/11/2021 [employer] Phone: Comment on above: As Needed until discontinued starting Nonrebreather mask oxygen Nonreb reather mask oxygen Respiratory Care Routine As Needed until discontinued starting 06/11/2021 [employer] Phone: Comment on above: As Needed until discontinued starting Oxygen therapy [Mini mum Data Set] Initiate Oxygen Therapy Protocol Respiratory Care Routine Daily until discontinued starting 06/11/2021 [employer] Phone: Comment on above: Daily until discontinued starting 2020 Oxygen therapy [Mini mum Data Set] Initiate Oxygen Therapy Protocol Respiratory Care Routine As Needed until discontinued starting 06/11/2021 [employer] Phone: Comment on above: As Needed until discontinued starting Oxygen therapy [Mini mum Data Set] Initiate Oxygen Therapy Protocol Respiratory Care Routine As Needed until discontinued starting 09/25/2021 [employer] Phone: Comment on above: As Needed until discontinued starting Oxygen therapy [Mini mum Data Set] Initiate Oxygen Therapy Protocol Respiratory Care Routine As Needed until discontinued starting 10/01/2021 [employer] Phone: Comment on above: As Needed until discontinued starting Phase I & II - meter ed glucose Phase I & II - metered glucose Point of Care Testing Routine As Needed until discontinued starting 06/11/2021 [employer] Phone: Comment on above: As Needed until discontinued starting Phase I & II - meter ed glucose Phase I & II - metered glucose Point of Care Testing Routine As Needed until discontinued starting 08/31/2019 [employer] Phone: Comment on above: As Needed until discontinued starting End: 08-31-2019 Pulse Oximetry Spot Check Pulse Oximetry Spot Check Respiratory Care Routine One Time for 1 Occurrences starting 08/31/2019 until 08/31/2019 [employer] Work Phone: Comment on above: One Time for 1 Occurrences starting 08/04 until 08/31/2019 Spirometry panel Incentive mary jo metry Respiratory Care Routine Q1H PRN until discontinued starting 06/11/2021 [employer] Work Phone: Comment on above: Q1H PRN until discontinued starting 06/02 Spirometry panel Incentive mary jo metry Respiratory Care Routine Daily until discontinued starting 10/01/2021 [employer] Work Phone: Comment on above: Daily until discontinued starting 2021 End: 10-01-2021 SPLINT APPLICATION SPLINT APPLICATION Procedures Routine One Time for 1 Occurrences starting 10/01/2021 until 10/01/2021 [employer] Work Phone: Comment on above: One Time for 1 Occurrences starting 09/2021 until 10/01/2021 End: 11-14-2023 Thyroid Stimulating Hormone Receptor Antibody (TRAb) [facility] [employer] Work Phone: Comment on above: Once (Lab) for 1 Occurrences starting until 11/14/2023 End: 10-25-2020 Urinalysis Urinalysis Lab STAT One Time for 1 Occurrences starting 10/25/2020 until 10/25/2020 [employer] Work Phone: Comment on above: One Time for 1 Occurrences starting 10/01 until 10/25/2020 End: 10-03-2021 VITAMIN B1, WHOLE BLOOD VITAMIN B1, WHOLE BLOOD Lab Routine Tomorrow AM for 1 Occurrences starting 10/03/2021 until 10/03/2021 [employer] Work Phone: Comment on above: Tomorrow AM for 1 Occurrences starting 0 10/03/2021 until 10/03/2021 VITAMIN B1, WHOLE BLOOD VITAMIN B1, WHOLE BLOOD Lab Routine 10/03/2021 4:27 AM EST [employer] Work Phone: Immunizations Immunization Date Immunization Notes Care Provider Fa cility 10-03-2020 COVID-19, Moderna, Primary or Immunocompromised, PF, 100mcg/0.5mL Gerry Ruby MD Work Phone: [facility] 09-05-2020 COVID-19, Moderna, Primary or Immunocompromised, PF, 100mcg/0.5mL Gerry Ruby MD Work Phone: [facility] Work Phone: 09-29-2016 pneumococcal polysaccharide vaccine, 23 valent Romeo Sargent [facility] Payers Date Payer Category Payer Self-pay [id number] 2024 Unknown [id number] 2022 Medicaid [place] [employer] [employer] [employer] [place] [id number] 2022-Present [address] [place] [address] Medicaid HMO [id number] 2022 Medicare [id number] 2022 Medicare HMO [id number] 2022 Unknown [id number] 2015 Medicare SUM[employer]ARE-MEDICA RE ADVANTAGE SUM[employer]-MEDICARE ADVANTAGE xxxxxxxxxxx 2015-Present [phone] [address] [place] [address] xxxxxxxxxxx [id number] 2015 Medicare [id number] Unknown [id number] Unknown [id number] Unknown [id number] Unknown [id number] Unknown [id number] Unknown [id number] Unknown [id number] Unknown [id number] Social History Date Type Detail Facility Start: 09-19-2019 End: 05-26-2022 Tobacco smoking status NHIS Former sm[place] Start: 08-02-1954 End: 09-19-2017 History of tobacco use Current [place] Start: 08-02-1954 End: 09-19-2017 History of tobacco use Cigarette Sm[place] Start: 09-19-2019 End: 05-26-2022 Cigarettes smoked current (pack per day) - Reported [place] Start: 08-31-2019 End: 09-19-2019 Alcohol intake Current non-drinker of alcohol (finding) [facility] Work Phone: Start: 10-20-2018 End: 09-09-2021 History SDOH Alcohol Frequency 1 [place] Start: 10-20-2018 End: 09-09-2021 History SDOH Social Connections Phone 5 [place] Start: 10-20-2018 End: 11-10-2018 History SDOH Social Connections Membership 2 [place] Start: 10-20-2018 History SDOH Social Connections Living 3 [place] Start: 10-20-2018 History SDOH [facility]ica [facility] Start: 1935 Sex Assigned At Not on file [facility] Start: 02-09-2019 End: 03-02-2025 Alcohol intake [facility] Start: 10-25-2020 End: 05-26-2022 Tobacco use and exposure Never used [employer] Work Phone: Exposure to SARS-CoV -2 (event) Not sure [employer] Work Phone: Start: 06-11-2021 End: 12-31-2023 Alcohol intake Current drinker of alcohol (finding) [employer] Work Phone: Start: 06-11-2021 End: 05-26-2022 History SDOH Alcohol Comment occ baidanias [employer] Work Phone: Start: 08-31-2019 [facility] [employer] Work Phone: Start: 1935 Sex Assigned At Female W [facility] Within the last year , have you been afraid of your partner or ex-partner? No [employer] How often to you hav e a drink containing alcohol? Never [facility] How many standard dr inks containing alcohol do you have on a typical day? Patient does not drink [employer] (I/We) worried wheth er (my/our) food would run out before (I/we) got money to buy more. Never true [employer] Start: 03-02-2022 End: 11-14-2024 Sex Female (finding) [employer] Tobacco smoking stat [facility]IS Unknown if ever smoked [facility] Work Phone: Goals Date Patient Goal Desired Activity /State Comment on above: patient wishes back felt better Barriers: impairment: physical: Plan for overcoming my barriers: needs x rays or PT Confidence: 01/09 Anticipated Goal Completion Date: 03/20 Formatting of this n ote might be different from the original. patient wishes back felt better Barriers: impairment: physical: Plan for overcoming my barriers: needs x rays or PT Confidence: 01/09 Anticipated Goal Completion Date: 03/20 Clinical Notes 08-24-2019 to 12-28-2024 Brent Barakat MD - 12/28/2024 10:20 AM EDTTelephone Encounter - Tommy Giles - 06/26/2024 7:58 AM ESTTelephone Encounter - Tommy Giles - 06/26/2024 7:58 AM ESTDischarge InstructionsAttachments Note Date & Type Note Facility 12-28-2024 History of Present illness Narrative Images from the original note were not included. [facility] END[facility]OLOGY [address] [facility] [address] Dept: [phone] Dept Visit type: Established Reason for Visit: Hyperthyroidism Patient was identified and seen today via Telehealth by agreement and consent. I used the following Telehealth technology: Audio capability only. Total length of call 30 minutes. The patient was offered and advised video for a more comprehensive evaluation, but the patient declined or was unable to use video. Patient location: Patient Location: Nursing facility. This patient encounter is appropriate and reasonable under the circumstances: transportation issues . The patient has been advised of the potential risks and limitations of this mode of treatment (including but not limited to the absence of in-person examination) and has agreed to be treated in a remote fashion in spite of them. Any and all of the patient's/patient's family's questions on this issue have been answered and I have made no promises or guarantees to the patient. The patient has also been advised to contact this office for worsening conditions or problems, and seek emergency medical treatment and/or call 911 if the patient deems either necessary. The patient stated that they are currently in the [facility]. If the patient is a minor, permission has been obtained by the parent or guardian for the patient to receive medical care at this visit. 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 Thyroid nodule 3. Age-related osteoporosis without current pathological fracture Thyrotoxicosis -thyroid labs consistent with thyrotoxicosis on 11/23 presenting with tachycardia -Possibly due to toxic thyroid nodule -Patient is at risk for complications related to hyperthyroidism given her advanced age and other comorbidities including osteoporosis -TRAb neg -Patient on antithyroid medication with methimazole -MMI dose reduced to 2.5 mg 5 days a week on 06/25 -Patient clinically euthyroid based on history -repeat TFTs requested to be done in 3 months were not received; additional labs to be done before this visit were also not available --will send new lab orders for TFTs to be performed REESE Thyroid nodule -Patient has incidentally discovered right thyroid nodule on 11/[address] -Recent thyroid ultrasound revealed a R nodule that met criteria for biopsy -she has no neck compressive symptoms -Patient has declined surgery even if malignant, thus, FNA biopsy would not be helpful -pt has accepted risk -this is fairly reasonable given pt's advanced age and comorbidities -no need for further management of thyroid nodule at this time --of note, this was the recommendation previously, but there was a request from the facility for a thyroid ultrasound so this was ordered but no results were received and after further inquiry, the ultrasound was not actually performed -At this time, I would not recommend repeat thyroid imaging Osteoporosis managed by PCP Continue Ca/D supplementation. Unable to exercise due to her mobility issues. Avoid falls. Can consider pharmacotherapy. Defer to PCP. Moving forward, hyperthyroidism would be better managed by PCP who can coordinate patient's care more appropriately than through our office since we can only follow her up virtually. Follow up Will follow-up with PCP for thyroid. Subjective Thyroid disorder: Thyroid nodule, thyrotoxicosis/hyperthyroidism Onset of thyroid disorder: 11/23 Home regimen: none Biotin use: none Patient resides at [facility] with her . She has significant debility. She is wheelchair-bound. Patient was found to have an incidental right nodule on CTA on 10/23. CTA on 10/23/2023 showed a 3.5 cm hypodense nodule on the right lobe of the thyroid. US (11/23) right mid 3.1 cm TI-RADS 4 nodule, left mid 0.4 cm TI-RADS 4 nodule No history of neck radiation. No neck compressive symptoms. No family history of thyroid cancer. TFTs were abnormal. Latest Reference Range & Units 11/13/23 12:11 11/14/23 05:56 THYROID STIMULATING HORMONE 0.465 - 4.680 uIU/mL <0.015 (L) T4, FREE 0.78 - 2.19 ng/dL 2.57 (H) T3, FREE 2.77 - 5.27 pg/mL 4.49 TSH on 10/23 was also suppressed at 0.082. Patient had normal TSH on 10/21. No prior history of thyroid disease. No family history of thyroid disease. No hyperthyroid symptoms. There is a history of heart failure in her chart. No history of arrhythmia or CAD. She has known osteoporosis. Not on treatment. Pt hospitalized 11/23 from SNF for AMS. She had Influenza A infection and bacteremia. Also had UTI. Labs 12/16/23. TSH 0.47, TT4 7.4, TT3 0.99, all normal. Continued methimazole 2.5 mg daily. Labs (04/25) TSH 2.1, free T41.03, free T3 2.1 Low US (04/25) --right 4.2 cm solid nodule, left 1.3 cm solid nodule, both TI-RADS 3 nodules LV 12/23. She resides at [facility]. Spoke to patient --she initially wanted to reschedule since she had a "hair" appointment this afternoon; I convinced her that this was important and she agreed to talk to me for the rest of the visit No hospitalizations or illnesses since last visit -no US done per pt -no dysphagia/choking -no hyperthyroid symptoms; no palpitations, shakiness, excessive sweating, anxiety, change in appetite -wheelchair-bound -currently 125 pounds -Denies any recent falls or fractures -Patient states that she has been compliant with her medications -No labs have been received during the phone call --labs requested from the facility from 11/24 and 12/24 but there were no thyroid function tests Wt Readings from Last 4 Encounters: 12/31/23 120 lb (54.4 kg) 11/13/23 126 lb 8.7 oz (57.4 kg) 10/29/23 133 lb 14.4 oz (60.7 kg) 09/16/21 127 lb (57.6 kg) Review of Systems An entire ROS was performed at the time of this encounter. Unless noted above in the HPI, the ROS is negative. No Known Allergies Outpatient Medications Prior to Visit Medication Sig Dispense Refill acetaminophen (Tylenol) 500 MG tablet Take 500 mg by mouth every 6 hours as needed. carvedilol (Coreg) 3.125 MG tablet Take 3.125 mg by mouth daily. Hold if SBP less than 100 or HR less than 55 cetirizine (ZyrTEC) 10 MG chewable tablet Chew 10 mg daily. cilostazol (Pletal) 100 MG tablet Take 100 mg by mouth 2 times daily. Docusate Sodium (DSS) 100 MG capsule Take 1 capsule by mouth 2 times daily. ergocalciferol (Vitamin D2) 1.25 MG (07311 UT) capsule Take 50,000 Units by mouth 1 (one) time per week. ferrous sulfate 325 (65 Fe) MG tablet Take 325 mg by mouth daily (with breakfast). gabapentin (Neurontin) 100 MG capsule Take 100 mg by mouth 3 times daily. Lidocaine 4 % patch Place 1 patch on the skin daily. lisinopril 5 MG tablet methIMAzole (Tapazole) 5 MG tablet Take 0.5 tablets (2.5 mg) by mouth 5 (five) times a week. 10 tablet 11 ondansetron ODT (Zofran-ODT) 4 MG disintegrating tablet Take 1 tablet by mouth every 8 hours as needed. pantoprazole (ProtoNix) 40 MG EC tablet Take 1 tablet (40 mg) by mouth every morning (before breakfast). Do not crush, chew, or split. (Patient not taking: Reported on 12/31/2023) polycarbophil (Fibercon) 625 MG tablet Take 625 mg by mouth daily. potassium chloride CR (Klor-Con) 10 MEQ ER tablet Take 40 mEq by mouth daily. Do not crush, chew, or split. simvastatin (Zocor) 10 MG tablet Take 10 mg by mouth Nightly. No facility-administered medications prior to visit. Past Medical History: Diagnosis Date CHF (congestive heart failure) ([facility]) COPD (chronic obstructive pulmonary disease) ([facility]) Social History Tobacco Use Smoking status: Former Current packs/day: 0.00 Average packs/day: 0.5 packs/day for 35.0 years (17.5 ttl pk-yrs) Types: Cigarettes Start date: 1956 Quit date: 1991 Years since quittin.4 Smokeless tobacco: Never Substance Use Topics Alcohol use: Yes Comment: obdulia bullard Past Surgical History: Procedure Laterality Date HIP SURGERY Right HYSTERECTOMY KNEE SURGERY Bilateral LEG MUSCLE SURGERY (HISTORICAL) Left Family History Family history unknown: Yes Objective There were no vitals taken for this visit. Physical Exam Today's visit was a telehealth visit occurring by phone; therefore physical examination could not be completed. A physical examination will be completed at the time of the patient's next in person office visit. Data Reviewed and Summarized Labs: No results found for: "HGBA1C" No components found for: "LABA1C" No components found for: "EAG" Lab Results Component Value Date NA 134 (L) 11/14/2023 K 4.1 11/14/2023 CL 108 (H) 11/14/2023 CO2 21 (L) 11/14/2023 BUN 9 11/14/2023 CREATININE 0.64 11/14/2023 CREATININE 0.50 (L) 10/06/2021 GLUCOSE 86 11/14/2023 CALCIUM 9.2 11/14/2023 Lab Results Component Value Date CHOL 152 09/11/2021 Lab Results Component Value Date TRIG 81 09/11/2021 Lab Results Component Value Date HDL 72 (H) 09/11/2021 No results found for: "LDLCALC" No results found for: "VLDL" Lab Results Component Value Date CHOLHDLRATIO 2 09/11/2021 No results found for: "LDBN26DXX" Lab Results Component Value Date TSH <0.015 (L) 11/13/2023 [id number] 137 04/10/2021 X2RICZX 9.4 04/10/2021 Imaging/Testing: I have addressed the above chronic illnesses including management, progression, and benefits and side effects of treatment. I have reviewed prior records, interpreted test results and discussed management with the patient. Portions of the information within this encounter were entered using an electronic dictation system. Best attempts were made to edit/proofread the information prior to note completion. Despite the review of information, some errors may remain. If there are questions related to the information contained within the note please contact the signing physician directly. documented in this encounter [facility] 06-26-2024 Telephone encounter Note Spoke with staff, Ultrasound order faxed. Bill will get done. [facility] 06-26-2024 Miscellaneous Notes Spoke with staff, Ultrasound order faxed. Bill will get done. Name of caller: Lj Contact phone number: [phone] Relationship to Patient: Abhinav Ruiz Provider: Dr. Barakat Practice: [facility] [place], [place] Endocrinology Chief Complaint/Reason for Call: Bill states that the patient is refusing to go have the US thyroid done and he would like to know if he could do a US with a [place], instead. Lj states that, if it is okay to do he would need to know what the US is for and a verbal order is acceptable. Please advise. Best time of day caller can be reached: Any Patient advised that office/PCP has 24-48 business hours to return their call: No documented in this encounter [facility] 06-23-2024 Telephone encounter Note Name of caller: Lj Contact phone number: [phone] Relationship to Patient: Abhinav Ruiz Provider: Dr. Barakat Practice: [facility] [place] [place] Endocrinology Chief Complaint/Reason for Call: Lj states that the patient is refusing to go have the US thyroid done and he would like to know if he could do a US with a [place], instead. Lj states that, if it is okay to do he would need to know what the US is for and a verbal order is acceptable. Please advise. Best time of day caller can be reached: Any Patient advised that office/PCP has 24-48 business hours to return their call: No [facility] 06-09-2024 History of Present illness Narrative Images from the original note were not included. [facility] END[facility] [address] [facility] [id number] Dept: [phone] Dept Visit type: Established Reason for Visit: No chief complaint on file. Patient was identified and seen today via Telehealth by agreement and consent. I used the following Telehealth technology: Audio capability only. Total length of call 30 minutes. The patient was offered and advised video for a more comprehensive evaluation, but the patient declined or was unable to use video. Patient location: Patient Location: Nursing facility. This patient encounter is appropriate and reasonable under the circumstances: transportation issues and mobility issues. The patient has been advised of the potential risks and limitations of this mode of treatment (including but not limited to the absence of in-person examination) and has agreed to be treated in a remote fashion in spite of them. Any and all of the patient's/patient's family's questions on this issue have been answered and I have made no promises or guarantees to the patient. The patient has also been advised to contact this office for worsening conditions or problems, and seek emergency medical treatment and/or call 911 if the patient deems either necessary. The patient stated that they are currently in the [facility]. If the patient is a minor, permission has been obtained by the parent or guardian for the patient to receive medical care at this visit. Assessment and Plan 1. Thyroid nodule 2. Other thyrotoxicosis without thyrotoxic crisis or storm - TSH - T4, free - T3, free 3. Age-related osteoporosis without current pathological fracture Thyroid nodule -Patient has incidentally discovered right thyroid nodule on 11/[address] -Recent thyroid ultrasound revealed a R nodule that met criteria for biopsy; this seems to have grown from the last ultrasound but has been labeled a TI-RADS 3 nodule rather than a TI-RADS 4 nodule --either way, this would still be amenable for biopsy -she has no neck compressive symptoms -Counseled patient regarding the evaluation and management of thyroid nodule -Patient has declined surgery even if malignant, thus, FNA biopsy would not be helpful -- pt accepts risks of possible malignancy -this is fairly reasonable given pt's advanced age and comorbidities -no need for further management at this time Thyrotoxicosis -thyroid labs consistent with thyrotoxicosis on 11/23 presenting with tachycardia -Possibly due to toxic thyroid nodule -Patient is at risk for complications related to hyperthyroidism given her advanced age and other comorbidities including osteoporosis -TRAb neg -Patient on antithyroid medication with methimazole -Recent labs reviewed --noted low FT3 -Will reduce MMI to 2.5 mg 5 days a week -will repeat TFTs in 3 months Osteoporosis managed by PCP Continue Ca/D supplementation. Unable to exercise due to her mobility issues. Avoid falls. Can consider pharmacotherapy. No follow-ups on file. Subjective Thyroid disorder: Thyroid nodule, thyrotoxicosis/hyperthyroidism Onset of thyroid disorder: 11/23 Home regimen: none Biotin use: none Patient resides at [facility] with her . She has significant debility. She is wheelchair-bound. Patient was found to have an incidental right nodule on CTA on 10/23. CTA on 10/23/2023 showed a 3.5 cm hypodense nodule on the right lobe of the thyroid. US (11/23) right mid 3.1 cm TI-RADS 4 nodule, left mid 0.4 cm TI-RADS 4 nodule No history of neck radiation. No neck compressive symptoms. No family history of thyroid cancer. TFTs were abnormal. Latest Reference Range & Units 11/13/23 12:11 11/14/23 05:56 THYROID STIMULATING HORMONE 0.465 - 4.680 uIU/mL <0.015 (L) T4, FREE 0.78 - 2.19 ng/dL 2.57 (H) T3, FREE 2.77 - 5.27 pg/mL 4.49 TSH on 10/23 was also suppressed at 0.082. Patient had normal TSH on 10/21. No prior history of thyroid disease. No family history of thyroid disease. No hyperthyroid symptoms. There is a history of heart failure in her chart. No history of arrhythmia or CAD. She has known osteoporosis. Not on treatment. Pt hospitalized 11/23 from SNF for AMS. She had Influenza A infection and bacteremia. Also had UTI. LV 12/23. She resides at [facility]. Spoke to Lj, nursing teacher @ [phone] Noted labs from 12/16/23. TSH 0.47, TT4 7.4, TT3 0.99, all normal. Continued methimazole 2.5 mg daily. No hospitalizations since last visit She had COVID recently She has lost some weight -- 03/25 120 -- now 126 pounds She does not eat much as she does not like the food there Stopped iron; has some bowel incontinence She is bedbound; does not move much No recent falls No neck compressive symptoms Denies palpitations, tremors, excessive sweating, anxiety Records from [facility] noted Labs (04/25) TSH 2.1, free T41.03, free T3 2.1 Low US (04/25) --right 4.2 cm solid nodule, left 1.3 cm solid nodule, both TI-RADS 3 nodules Wt Readings from Last 4 Encounters: 12/31/23 120 lb (54.4 kg) 11/13/23 126 lb 8.7 oz (57.4 kg) 10/29/23 133 lb 14.4 oz (60.7 kg) 09/16/21 127 lb (57.6 kg) Review of Systems An entire ROS was performed at the time of this encounter. Unless noted above in the HPI, the ROS is negative. No Known Allergies Outpatient Medications Prior to Visit Medication Sig Dispense Refill acetaminophen (Tylenol) 500 MG tablet Take 500 mg by mouth every 6 hours as needed. carvedilol (Coreg) 3.125 MG tablet Take 3.125 mg by mouth daily. Hold if SBP less than 100 or HR less than 55 cetirizine (ZyrTEC) 10 MG chewable tablet Chew 10 mg daily. cilostazol (Pletal) 100 MG tablet Take 100 mg by mouth 2 times daily. Docusate Sodium (DSS) 100 MG capsule Take 1 capsule by mouth 2 times daily. ergocalciferol (Vitamin D2) 1.25 MG (15692 UT) capsule Take 50,000 Units by mouth 1 (one) time per week. ferrous sulfate 325 (65 Fe) MG tablet Take 325 mg by mouth daily (with breakfast). gabapentin (Neurontin) 100 MG capsule Take 100 mg by mouth 3 times daily. Lidocaine 4 % patch Place 1 patch on the skin daily. lisinopril 5 MG tablet methIMAzole (Tapazole) 5 MG tablet Take 0.5 tablets (2.5 mg) by mouth daily. 15 tablet 11 ondansetron ODT (Zofran-ODT) 4 MG disintegrating tablet Take 1 tablet by mouth every 8 hours as needed. pantoprazole (ProtoNix) 40 MG EC tablet Take 1 tablet (40 mg) by mouth every morning (before breakfast). Do not crush, chew, or split. (Patient not taking: Reported on 12/31/2023) polycarbophil (Fibercon) 625 MG tablet Take 625 mg by mouth daily. potassium chloride CR (Klor-Con) 10 MEQ ER tablet Take 40 mEq by mouth daily. Do not crush, chew, or split. simvastatin (Zocor) 10 MG tablet Take 10 mg by mouth Nightly. No facility-administered medications prior to visit. Past Medical History: Diagnosis Date CHF (congestive heart failure) (H[facility]) COPD (chronic obstructive pulmonary disease) (HCC) Social History Tobacco Use Smoking status: Former Current packs/day: 0.00 Average packs/day: 0.5 packs/day for 35.0 years (17.5 ttl pk-yrs) Types: Cigarettes Start date: 1956 Quit date: 1991 Years since quittin.8 Smokeless tobacco: Never Substance Use Topics Alcohol use: Yes Comment: obdulia bullard Past Surgical History: Procedure Laterality Date HIP SURGERY Right HYSTERECTOMY KNEE SURGERY Bilateral LEG MUSCLE SURGERY (HISTORICAL) Left Family History Family history unknown: Yes Objective There were no vitals taken for this visit. Physical Exam Today's visit was a telehealth visit occurring by phone; therefore physical examination could not be completed. A physical examination will be completed at the time of the patient's next in person office visit. Data Reviewed and Summarized Labs: No results found for: "HGBA1C" No components found for: "LABA1C" No components found for: "EAG" Lab Results Component Value Date NA 134 (L) 11/14/2023 K 4.1 11/14/2023 CL 108 (H) 11/14/2023 CO2 21 (L) 11/14/2023 BUN 9 11/14/2023 CREATININE 0.64 11/14/2023 CREATININE 0.50 (L) 10/06/2021 GLUCOSE 86 11/14/2023 CALCIUM 9.2 11/14/2023 Lab Results Component Value Date CHOL 152 09/11/2021 Lab Results Component Value Date TRIG 81 09/11/2021 Lab Results Component Value Date HDL 72 (H) 09/11/2021 No results found for: "LDLCALC" No results found for: "VLDL" Lab Results Component Value Date CHOLHDLRATIO 2 09/11/2021 No results found for: "[id number]" Lab Results Component Value Date TSH <0.015 (L) 11/13/2023 [id number] 137 04/10/2021 [id number] 9.4 04/10/2021 Imaging/Testing: I have addressed the above chronic illnesses including management, progression, and benefits and side effects of treatment. I have reviewed prior records, interpreted test results and discussed management with the patient. Portions of the information within this encounter were entered using an electronic dictation system. Best attempts were made to edit/proofread the information prior to note completion. Despite the review of information, some errors may remain. If there are questions related to the information contained within the note please contact the signing physician directly. documented in this encounter [facility] 2024 Hospital Discharge instructions Paco Schwarz MD - 2024 11:51 PM EDT You were seen in the Emergency Department for a fall. Your workup here showed that you have no dangerous injuries. You should take tylenol for pain. Return to the Emergency Department if you have: - Severe pain - High fever (102F) - Any other symptoms that concern you Please sign up for MyChart and review all results from your visit today. Please follow up with your primary care provider with any questions or concerns about your results today. Thank you for choosing [facility] for your care. Sincerely, Paco Schwarz MD \\You had an incidental finding on your CT scan. Here is what the radiologist saw: Ovoid hypodensity in right thyroid lobe, indeterminate. Follow-up accordingly. Follow-up thyroid ultrasound is recommended for incidental thyroid nodule that is equal to or greater than 1.5 cm in patients 35 years of age or older." You should ask your primary care doctor about this finding. documented in this encounter [facility] 2024 Emergency department Note [facility] ED EMERGENCY DEPARTMENT ENCOUNTER Pt Name: Adore Walter Birthdate 1935 Date of evaluation: 2024 Provider: Paco Schwarz MD CHIEF COMPLAINT Chief Complaint Patient presents with Fall HISTORY OF PRESENT ILLNESS I wore proper PPE for the entirety of this encounter. Adore Walter is a 89 y.o. female who presents to the emergency department with a fall from bed. Pt denies head trauma, but retirement reported head trauma. No LOC. Pt says she's not sure if she's on AC. Notes L shoulder pain. Nursing Notes were reviewed. Limitations to history: None Outside historians: EMS REVIEW OF SYSTEMS Constitutional: as noted in HPI, and negative for fever/chills Eyes: as noted in HPI, and negative for vision changes ENT: as noted in HPI, and negative for cough CV: as noted in HPI, and negative for chest pain, negative for palpitations Resp: as noted in HPI, and negative for shortness of breath GI: as noted in HPI, and negative for abd pain, negative for n/v/d : as noted in HPI, and negative for urinary symptoms MSK: as noted in HPI Skin: as noted in HPI, and negative for rash Neuro: as noted in HPI, and negative for headaches, negative for acute focal weakness/numbness PAST MEDICAL HISTORY Past Medical History: Diagnosis Date CHF (congestive heart failure) ([facility]) COPD (chronic obstructive pulmonary disease) ([facility]) SURGICAL HISTORY Past Surgical History: Procedure Laterality Date HIP SURGERY Right HYSTERECTOMY KNEE SURGERY Bilateral LEG MUSCLE SURGERY (HISTORICAL) Left CURRENT MEDICATIONS Previous Medications ACETAMINOPHEN (TYLENOL) 500 MG TABLET Take 500 mg by mouth every 6 hours as needed. CARVEDILOL (COREG) 3.125 MG TABLET Take 3.125 mg by mouth daily. Hold if SBP less than 100 or HR less than 55 CETIRIZINE (ZYRTEC) 10 MG CHEWABLE TABLET Chew 10 mg daily. CILOSTAZOL (PLETAL) 100 MG TABLET Take 100 mg by mouth 2 times daily. DOCUSATE SODIUM (DSS) 100 MG CAPSULE Take 1 capsule by mouth 2 times daily. ERGOCALCIFEROL (VITAMIN D2) 1.25 MG (34291 UT) CAPSULE Take 50,000 Units by mouth 1 (one) time per week. FERROUS SULFATE 325 (65 FE) MG TABLET Take 325 mg by mouth daily (with breakfast). GABAPENTIN (NEURONTIN) 100 MG CAPSULE Take 100 mg by mouth 3 times daily. LIDOCAINE 4 % PATCH Place 1 patch on the skin daily. LISINOPRIL 5 MG TABLET METHIMAZOLE (TAPAZOLE) 5 MG TABLET Take 0.5 tablets (2.5 mg) by mouth daily. ONDANSETRON ODT (ZOFRAN-ODT) 4 MG DISINTEGRATING TABLET Take 1 tablet by mouth every 8 hours as needed. PANTOPRAZOLE (PROTONIX) 40 MG EC TABLET Take 1 tablet (40 mg) by mouth every morning (before breakfast). Do not crush, chew, or split. POLYCARBOPHIL (FIBERCON) 625 MG TABLET Take 625 mg by mouth daily. POTASSIUM CHLORIDE CR (KLOR-CON) 10 MEQ ER TABLET Take 40 mEq by mouth daily. Do not crush, chew, or split. SIMVASTATIN (ZOCOR) 10 MG TABLET Take 10 mg by mouth Nightly. ALLERGIES Patient has no known allergies. FAMILY HISTORY Family History Family history unknown: Yes SOCIAL HISTORY Social History Socioeconomic History Marital status: Tobacco Use Smoking status: Former Current packs/day: 0.00 Average packs/day: 0.5 packs/day for 35.0 years (17.5 ttl pk-yrs) Types: Cigarettes Start date: 1956 Quit date: 1991 Years since quittin.5 Smokeless tobacco: Never Substance and Sexual Activity [facility] use: Yes [facility] Drug use: Never Social Determinants of Health Financial Resource Strain: Low Risk (05/26/2022) Overall Financial Resource Strain ([facility]) Difficulty of Paying Living Expenses: Not hard at all Food Insecurity: No Food Insecurity (05/26/2022) Hunger Vital Sign Worried About Running Out of Food in the Last Year: Never true Ran Out of Food in the Last Year: Never true Transportation Needs: No Transportation Needs (10/20/2018) Received from [facility] - Transportation Lack of Transportation (Medical): No Lack of Transportation (Non-Medical): No Physical Activity: Inactive (10/20/2018) Received from [facility] Exercise Vital Sign Days of Exercise per Week: 0 days Minutes of Exercise per Session: 0 min Stress: No Stress Concern Present (10/20/2018) Received from [facility] [employer] [place] [employer] [facility] - Occupational Stress Questionnaire Feeling of Stress : Not at all Social Connections: Moderately Isolated (10/20/2018) [facility] from [facility] [employer] [employer] [facility] Social Connection and Isolation Panel [NHANES] Frequency of Communication with Friends and Family: More than three times a week Frequency of Social Gatherings with Friends and Family: More than three times a week Attends [employer] Services: Never Active Member of Clubs or Organizations: No Attends Club or Organization Meetings: Never Marital Status: Intimate Partner Violence: Not At Risk (10/24/2023) Humiliation, Afraid, Rape, and Kick questionnaire Fear of Current or Ex-Partner: No Emotionally Abused: No Physically Abused: No Sexually Abused: No SCREENINGS PHYSICAL EXAM ED Triage Vitals Temp Pulse Resp BP -- -- -- -- SpO2 Temp src Heart Rate Source Patient Position -- -- -- -- BP Location FiO2 (%) -- -- Constitutional: No acute distress HEENT:Head: Atraumatic/normocephalic Eyes: Conjunctivae normal. PERRLA, EOMI ENT: Mucous membranes moist Neck: No C spine tenderness, normal ROM, supple CV: RRR RESP: CTAB, good respiratory effort, no increased wob GI: Abdomen soft, non-tender, non-distended, +BS, no guarding or rebound tenderness MSK: Normal bulk and tone, no gross deformity. No tenderness of the shoulders/arms, hands/wrists, chest wall, hips, knees, ankles/feet. Pelvis is stable. EXTR: Warm and well perfused, no edema SKIN: No rash/bruising/erythema PSYCH: Appropriate affect, cooperative behavior NEURO: Alert and oriented x 3, face symmetric, no slurred speech, CN2-12 intact, motor and sensory intact and equal bilaterally. DIAGNOSTIC RESULTS Procedures/EKG: RADIOLOGY (Per Emergency Physician): Interpretation per the Radiologist below, if available at the time of this note: XR pelvis 1 or 2 views Final Result 1. Possible small osteophytic spur and associated cleavage plane in the humeral neck-head junction appears chronic. Correlation with point tenderness and radiographic follow-up in 3-5 days may help in further evaluation. Alternatively, correlation with CT shoulder may help in further evaluation, as indicated. 2. No other, acute osseous abnormality. 3. Degenerative change. PELVIS SINGLE VIEW CLINICAL INDICATION: Fall, pain TECHNIQUE: Single, AP view of the pelvis. COMPARISON: September,. FINDINGS: Diffuse osteopenia. Interlocking IM rods in the right femoral head-neck, and status post left total hip arthroplasty. No apparent fracture or dislocation. Advanced degenerative change in the right hip joint and visualized lower lumbar spine. Soft tissues grossly unremarkable. IMPRESSION: 1. No acute osseous abnormality. 2. Postsurgical and degenerative change. Report Dictated on Electronically Signed By: Tutu Arroyo MD Electronically Signed Date/Time: 02/09/2024 12:04 AM EDT XR shoulder 2+ views left Final Result 1. Possible small osteophytic spur and associated cleavage plane in the humeral neck-head junction appears chronic. Correlation with point tenderness and radiographic follow-up in 3-5 days may help in further evaluation. Alternatively, correlation with CT shoulder may help in further evaluation, as indicated. 2. No other, acute osseous abnormality. 3. Degenerative change. PELVIS SINGLE VIEW CLINICAL INDICATION: Fall, pain TECHNIQUE: Single, AP view of the pelvis. COMPARISON: September,. FINDINGS: Diffuse osteopenia. Interlocking IM rods in the right femoral head-neck, and status post left total hip arthroplasty. No apparent fracture or dislocation. Advanced degenerative change in the right hip joint and visualized lower lumbar spine. Soft tissues grossly unremarkable. IMPRESSION: 1. No acute osseous abnormality. 2. Postsurgical and degenerative change. Report Dictated on Electronically Signed By: Tutu Arroyo MD Electronically Signed Date/Time: 02/09/2024 12:[address] cervical spine wo IV contrast Final Result 1. No acute intracranial findings. Chronic ischemic and atrophic changes. 2. Waxing and waning of bilateral mastoid sinus disease. 3. No acute compression deformity or apparent fracture in the cervical spine. Degenerative spondylosis. 4. Ovoid hypodensity in right thyroid lobe, indeterminate. Follow-up accordingly. Follow-up thyroid ultrasound is recommended for incidental thyroid nodule that is equal to or greater than 1.5 cm in patients 35 years of age or older. Patients with comorbidities or limited life expectancy should not have further evaluation of the thyroid nodule, unless it is warranted clinically, or specifically requested by the patient or referring physician. Reference: Mile Yuan. et al Managing incidental thyroid nodules detected on imaging: White paper of the ACR incidental thyroid findings committee" J Am Juju Radiol 2015;12:143-150. Report Dictated on Electronically Signed By: Tutu Arroyo MD Electronically Signed Date/Time: 2024 11:[address] head wo IV contrast Final Result 1. No acute intracranial findings. Chronic ischemic and atrophic changes. 2. Waxing and waning of bilateral mastoid sinus disease. 3. No acute compression deformity or apparent fracture in the cervical spine. Degenerative spondylosis. 4. Ovoid hypodensity in right thyroid lobe, indeterminate. Follow-up accordingly. Follow-up thyroid ultrasound is recommended for incidental thyroid nodule that is equal to or greater than 1.5 cm in patients 35 years of age or older. Patients with comorbidities or limited life expectancy should not have further evaluation of the thyroid nodule, unless it is warranted clinically, or specifically requested by the patient or referring physician. Reference: Mile Yuan. et al Managing incidental thyroid nodules detected on imaging: White paper of the ACR incidental thyroid findings committee" J Am Juju Radiol 2015;12:143-150. Report Dictated on Electronically Signed By: Tutu Arroyo MD Electronically Signed Date/Time: 2024 11:41 PM EDT LABS: Labs Reviewed - No data to display EMERGENCY DEPARTMENT COURSE and DIFFERENTIAL DIAGNOSIS/MDM: Vitals: There were no vitals filed for this visit. Medications - No data to display I personally saw the patient and performed a substantive portion of the visit including all aspects of the medical decision making. Pt nontoxic. Vitals normal. CT head ordered to evaluate for acute bleed, cranial fracture, space occupying lesions is negative for acute bleed, cranial fracture, space occupying lesions on my interpretation. No acute abnormalities on the radiologist's final read. CT c spine with no fracture or dislocation. XR L shoulder with no acute fracture or dislocation on my interpretation. No significant acute abnormalities on the radiologist's final interpretation. XR pelvis with no acute fracture or dislocation on my interpretation. No significant acute abnormalities on the radiologist's final interpretation. Discharged home in good condition. ED Course as of 02/09/2436Feb 08, [address] cervical spine wo IV contrast Incidental thyroid nodule [SARWAT] ED Course User Index [SARWAT] Paco Schwarz MD Diagnoses as of 02/09/2436 Fall, initial encounter Closed head injury, initial encounter Sprain of left shoulder, unspecified shoulder sprain type, initial encounter Diagnostics interpreted by me: As above Discussions with other clinicians: As above Chronic conditions impacting care: CAD, HTN, COPD CONSULTS: None ED Medications managed: Medications - No data to display CRITICAL CARE TIME I personally saw the patient and independently provided 0 minutes of non-concurrent critical care out of the total shared critical care time provided. PROCEDURES: Unless otherwise noted below, none Procedures Patients symptoms are consistent with sepsis, severe sepsis, or septic shock (If yes use ".sepsiscoremeasure"): no FINAL IMPRESSION 1. Fall, initial encounter 2. Closed head injury, initial encounter 3. Sprain of left shoulder, unspecified shoulder sprain type, initial encounter DISPOSITION/PLAN Discharge 02/09/2024 12:16:00 AM PATIENT REFERRED TO: Thais Talamantes MD [address] [place] [address] [address] [place] [address] Schedule an appointment as soon as possible for a visit DISCHARGE MEDICATIONS: New Prescriptions No medications on file (Please note: Portions of this note were completed with a voice recognition program. Efforts were made to edit the dictations but occasionally words and phrases are mis-transcribed.) Paco Schwarz MD JESSE Emergency Medicine Physician [facility] Paco Schwarz MD 02/09/2437 Patient arrives to er via ems from [facility] in [place]. Per patient, she was getting out of bed and slid. Per retirement, pt hit her head. Pt denies hitting her head, states she landed on her shoulder. Pt is not on blood thinners, denies any LOC Potentially COVID + , EMS did NOT get a clear report from retirement. This RN tried to call the retirement , they did not answer documented in this encounter [facility] 2024 Emergency department Triage note Patient arrives to er via ems from [facility] in [place]. Per patient, she was getting out of bed and slid. Per retirement, pt hit her head. Pt denies hitting her head, states she landed on her shoulder. Pt is not on blood thinners, denies any LOC Potentially COVID + , EMS did NOT get a clear report from retirement. This RN tried to call the retirement , they did not answer [facility] 2024 Physician Emergency department Note [facility] ED EMERGENCY DEPARTMENT ENCOUNTER Pt Name: Adore Walter Birthdate 1935 Date of evaluation: 2024 Provider: Paco Schwarz MD CHIEF COMPLAINT Chief Complaint Patient presents with Fall HISTORY OF PRESENT ILLNESS I wore proper PPE for the entirety of this encounter. Adore Walter is a 89 y.o. female who presents to the emergency department with a fall from bed. Pt denies head trauma, but retirement reported head trauma. No LOC. Pt says she's not sure if she's on AC. Notes L shoulder pain. Nursing Notes were reviewed. Limitations to history: None Outside historians: EMS REVIEW OF SYSTEMS Constitutional: as noted in HPI, and negative for fever/chills Eyes: as noted in HPI, and negative for vision changes ENT: as noted in HPI, and negative for cough CV: as noted in HPI, and negative for chest pain, negative for palpitations Resp: as noted in HPI, and negative for shortness of breath GI: as noted in HPI, and negative for abd pain, negative for n/v/d : as noted in HPI, and negative for urinary symptoms MSK: as noted in HPI Skin: as noted in HPI, and negative for rash Neuro: as noted in HPI, and negative for headaches, negative for acute focal weakness/numbness PAST MEDICAL HISTORY Past Medical History: Diagnosis Date CHF (congestive heart failure) (HCC) COPD (chronic obstructive pulmonary disease) (HCC) SURGICAL HISTORY Past Surgical History: Procedure Laterality Date HIP SURGERY Right HYSTERECTOMY KNEE SURGERY Bilateral LEG MUSCLE SURGERY (HISTORICAL) Left CURRENT MEDICATIONS Previous Medications ACETAMINOPHEN (TYLENOL) 500 MG TABLET Take 500 mg by mouth every 6 hours as needed. CARVEDILOL (COREG) 3.125 MG TABLET Take 3.125 mg by mouth daily. Hold if SBP less than 100 or HR less than 55 CETIRIZINE (ZYRTEC) 10 MG CHEWABLE TABLET Chew 10 mg daily. CILOSTAZOL (PLETAL) 100 MG TABLET Take 100 mg by mouth 2 times daily. DOCUSATE SODIUM (DSS) 100 MG CAPSULE Take 1 capsule by mouth 2 times daily. ERGOCALCIFEROL (VITAMIN D2) 1.25 MG (94550 UT) CAPSULE Take 50,000 Units by mouth 1 (one) time per week. FERROUS SULFATE 325 (65 FE) MG TABLET Take 325 mg by mouth daily (with breakfast). GABAPENTIN (NEURONTIN) 100 MG CAPSULE Take 100 mg by mouth 3 times daily. LIDOCAINE 4 % PATCH Place 1 patch on the skin daily. LISINOPRIL 5 MG TABLET METHIMAZOLE (TAPAZOLE) 5 MG TABLET Take 0.5 tablets (2.5 mg) by mouth daily. ONDANSETRON ODT (ZOFRAN-ODT) 4 MG DISINTEGRATING TABLET Take 1 tablet by mouth every 8 hours as needed. PANTOPRAZOLE (PROTONIX) 40 MG EC TABLET Take 1 tablet (40 mg) by mouth every morning (before breakfast). Do not crush, chew, or split. POLYCARBOPHIL (FIBERCON) 625 MG TABLET Take 625 mg by mouth daily. POTASSIUM CHLORIDE CR (KLOR-CON) 10 MEQ ER TABLET Take 40 mEq by mouth daily. Do not crush, chew, or split. SIMVASTATIN (ZOCOR) 10 MG TABLET Take 10 mg by mouth Nightly. ALLERGIES Patient has no known allergies. FAMILY HISTORY Family History Family history unknown: Yes SOCIAL HISTORY Social History Socioeconomic History Marital status: Tobacco Use Smoking status: Former Current packs/day: 0.00 Average packs/day: 0.5 packs/day for 35.0 years (17.5 ttl pk-yrs) Types: Cigarettes Start date: 1956 Quit date: 1991 Years since quittin.5 Smokeless tobacco: Never Substance and Sexual Activity Alcohol use: Yes Comment: obdulia bullard Drug use: Never Social Determinants of Health Financial Resource Strain: Low Risk (05/26/2022) Overall Financial Resource Strain (CARDIA) Difficulty of Paying Living Expenses: Not hard at all Food Insecurity: No Food Insecurity (05/26/2022) Hunger Vital Sign Worried About Running Out of Food in the Last Year: Never true Ran Out of Food in the Last Year: Never true Transportation Needs: No Transportation Needs (10/20/2018) Received from [facility] - Transportation Lack of Transportation (Medical): No Lack of Transportation (Non-Medical): No Physical Activity: Inactive (10/20/2018) Received from [facility] Exercise Vital Sign Days of Exercise per Week: 0 days Minutes of Exercise per Session: 0 min Stress: No Stress Concern Present (10/20/2018) Received from [facility] [employer] [place] [employer] [facility] - Occupational Stress Questionnaire Feeling of Stress : Not at all Social Connections: Moderately Isolated (10/20/2018) Received from [facility] Social Connection and Isolation Panel [NHANES] Frequency of Communication with Friends and Family: More than three times a week Frequency of Social Gatherings with Friends and Family: More than three times a week Attends [employer] Services: Never Active Member of Clubs or Organizations: No Attends Club or Organization Meetings: Never Marital Status: Intimate Partner Violence: Not At Risk (10/24/2023) Humiliation, Afraid, Rape, and Kick questionnaire Fear of Current or Ex-Partner: No Emotionally Abused: No Physically Abused: No Sexually Abused: No SCREENINGS PHYSICAL EXAM ED Triage Vitals Temp Pulse Resp BP -- -- -- -- SpO2 Temp src Heart Rate Source Patient Position -- -- -- -- BP Location FiO2 (%) -- -- Constitutional: No acute distress HEENT:Head: Atraumatic/normocephalic Eyes: Conjunctivae normal. PERRLA, EOMI ENT: Mucous membranes moist Neck: No C spine tenderness, normal ROM, supple CV: RRR RESP: CTAB, good respiratory effort, no increased wob GI: Abdomen soft, non-tender, non-distended, +BS, no guarding or rebound tenderness MSK: Normal bulk and tone, no gross deformity. No tenderness of the shoulders/arms, hands/wrists, chest wall, hips, knees, ankles/feet. Pelvis is stable. EXTR: Warm and well perfused, no edema SKIN: No rash/bruising/erythema PSYCH: Appropriate affect, cooperative behavior NEURO: Alert and oriented x 3, face symmetric, no slurred speech, CN2-12 intact, motor and sensory intact and equal bilaterally. DIAGNOSTIC RESULTS Procedures/EKG: RADIOLOGY (Per Emergency Physician): Interpretation per the Radiologist below, if available at the time of this note: XR pelvis 1 or 2 views Final Result 1. Possible small osteophytic spur and associated cleavage plane in the humeral neck-head junction appears chronic. Correlation with point tenderness and radiographic follow-up in 3-5 days may help in further evaluation. Alternatively, correlation with CT shoulder may help in further evaluation, as indicated. 2. No other, acute osseous abnormality. 3. Degenerative change. PELVIS SINGLE VIEW CLINICAL INDICATION: Fall, pain TECHNIQUE: Single, AP view of the pelvis. COMPARISON: September,. FINDINGS: Diffuse osteopenia. Interlocking IM rods in the right femoral head-neck, and status post left total hip arthroplasty. No apparent fracture or dislocation. Advanced degenerative change in the right hip joint and visualized lower lumbar spine. Soft tissues grossly unremarkable. IMPRESSION: 1. No acute osseous abnormality. 2. Postsurgical and degenerative change. Report Dictated on Electronically Signed By: Tutu Arroyo MD Electronically Signed Date/Time: 02/09/2024 12:04 AM EDT XR shoulder 2+ views left Final Result 1. Possible small osteophytic spur and associated cleavage plane in the humeral neck-head junction appears chronic. Correlation with point tenderness and radiographic follow-up in 3-5 days may help in further evaluation. Alternatively, correlation with CT shoulder may help in further evaluation, as indicated. 2. No other, acute osseous abnormality. 3. Degenerative change. PELVIS SINGLE VIEW CLINICAL INDICATION: Fall, pain TECHNIQUE: Single, AP view of the pelvis. COMPARISON: September,. FINDINGS: Diffuse osteopenia. Interlocking IM rods in the right femoral head-neck, and status post left total hip arthroplasty. No apparent fracture or dislocation. Advanced degenerative change in the right hip joint and visualized lower lumbar spine. Soft tissues grossly unremarkable. IMPRESSION: 1. No acute osseous abnormality. 2. Postsurgical and degenerative change. Report Dictated on Electronically Signed By: Tutu Arroyo MD Electronically Signed Date/Time: 02/09/2024 12:[address] cervical spine wo IV contrast Final Result 1. No acute intracranial findings. Chronic ischemic and atrophic changes. 2. Waxing and waning of bilateral mastoid sinus disease. 3. No acute compression deformity or apparent fracture in the cervical spine. Degenerative spondylosis. 4. Ovoid hypodensity in right thyroid lobe, indeterminate. Follow-up accordingly. Follow-up thyroid ultrasound is recommended for incidental thyroid nodule that is equal to or greater than 1.5 cm in patients 35 years of age or older. Patients with comorbidities or limited life expectancy should not have further evaluation of the thyroid nodule, unless it is warranted clinically, or specifically requested by the patient or referring physician. Reference: Mile Skinner et al Managing incidental thyroid nodules detected on imaging: White paper of the ACR incidental thyroid findings committee" J Am Juju Radiol 2015;12:143-150. Report Dictated on Electronically Signed By: Tutu Arroyo MD Electronically Signed Date/Time: 2024 11:[address] head wo IV contrast Final Result 1. No acute intracranial findings. Chronic ischemic and atrophic changes. 2. Waxing and waning of bilateral mastoid sinus disease. 3. No acute compression deformity or apparent fracture in the cervical spine. Degenerative spondylosis. 4. Ovoid hypodensity in right thyroid lobe, indeterminate. Follow-up accordingly. Follow-up thyroid ultrasound is recommended for incidental thyroid nodule that is equal to or greater than 1.5 cm in patients 35 years of age or older. Patients with comorbidities or limited life expectancy should not have further evaluation of the thyroid nodule, unless it is warranted clinically, or specifically requested by the patient or referring physician. Reference: Mile Skinner et al Managing incidental thyroid nodules detected on imaging: White paper of the ACR incidental thyroid findings committee" J Am Juju Radiol 2015;12:143-150. Report Dictated on Electronically Signed By: Tutu Arroyo MD Electronically Signed Date/Time: 2024 11:41 PM EDT LABS: Labs Reviewed - No data to display EMERGENCY DEPARTMENT COURSE and DIFFERENTIAL DIAGNOSIS/MDM: Vitals: There were no vitals filed for this visit. Medications - No data to display I personally saw the patient and performed a substantive portion of the visit including all aspects of the medical decision making. Pt nontoxic. Vitals normal. CT head ordered to evaluate for acute bleed, cranial fracture, space occupying lesions is negative for acute bleed, cranial fracture, space occupying lesions on my interpretation. No acute abnormalities on the radiologist's final read. CT c spine with no fracture or dislocation. XR L shoulder with no acute fracture or dislocation on my interpretation. No significant acute abnormalities on the radiologist's final interpretation. XR pelvis with no acute fracture or dislocation on my interpretation. No significant acute abnormalities on the radiologist's final interpretation. Discharged home in good condition. ED Course as of 02/09/2436Feb 08, [address] cervical spine wo IV contrast Incidental thyroid nodule [SARWAT] ED Course User Index [SARWAT] Paco Schwarz MD Diagnoses as of 02/09/2436 Fall, initial encounter Closed head injury, initial encounter Sprain of left shoulder, unspecified shoulder sprain type, initial encounter Diagnostics interpreted by me: As above Discussions with other clinicians: As above Chronic conditions impacting care: CAD, HTN, COPD CONSULTS: None ED Medications managed: Medications - No data to display CRITICAL CARE TIME I personally saw the patient and independently provided 0 minutes of non-concurrent critical care out of the total shared critical care time provided. PROCEDURES: Unless otherwise noted below, none Procedures Patients symptoms are consistent with sepsis, severe sepsis, or septic shock (If yes use ".sepsiscoremeasure"): no FINAL IMPRESSION 1. Fall, initial encounter 2. Closed head injury, initial encounter 3. Sprain of left shoulder, unspecified shoulder sprain type, initial encounter DISPOSITION/PLAN Discharge 02/09/2024 12:16:00 AM PATIENT REFERRED TO: Thais Talamantes MD [address] [facility] [id number] Schedule an appointment as soon as possible for a visit DISCHARGE MEDICATIONS: New Prescriptions No medications on file (Please note: Portions of this note were completed with a voice recognition program. Efforts were made to edit the dictations but occasionally words and phrases are mis-transcribed.) Paco Schwarz MD J[facility] Emergency Medicine Physician [facility] Paco Schwarz MD 02/09/24 0038 [facility] 01-14-2024 Telephone encounter Note Faxed lab and US orders to facility with note [facility] 01-14-2024 Miscellaneous Notes Faxed lab and US orders to facility with note Noted labs from 12/16/23. TSH 0.47, TT4 7.4, TT3 0.99, all normal. Will continue methimazole 2.5 mg daily. Has FU on 06/09/24. Please remind pt/facility ([facility]) that pt has US on 04/24 9AM at [facility] and to get labs done before next visit. Called [facility] of [facility] Wednesday at patients appointment requesting lab results and nurse was suppose to fax. Never received them so I called back today spoke to Hope and she stated she sees a total T3 done on december 15. She will look into this further and call me back documented in this encounter [facility] 01-14-2024 Telephone encounter Note Noted labs from 12/16/23. TSH 0.47, TT4 7.4, TT3 0.99, all normal. Will continue methimazole 2.5 mg daily. Has FU on 06/09/24. Please remind pt/facility ([facility]) that pt has US on 04/24 9AM at [facility] and to get labs done before next visit. [facility] 01-04-2024 Telephone encounter Note Called [facility] of [facility] Wednesday at patients appointment requesting lab results and nurse was suppose to fax. Never received them so I called back today spoke to Hope and she stated she sees a total T3 done on december 15. She will look into this further and call me back [facility] 12-31-2023 Telephone encounter Note Follow-up on thyroid lab results from [facility]. Tommy, please schedule follow-up appointment (virtual visit) on 05/09 at 4 PM. Patient will need thyroid ultrasound done prior to the visit --carmina Gilliam. [facility] 12-31-2023 Miscellaneous Notes Follow-up on thyroid lab results from [facility]. Tommy, please schedule follow-up appointment (virtual visit) on 05/09 at 4 PM. Patient will need thyroid ultrasound done prior to the visit --carmina Gilliam. documented in this encounter [facility] 12-31-2023 History of Present illness Narrative Images from the original note were not included. [facility] [address] [facility] [id number] Dept: [phone] Dept Visit type: Established Reason for Visit: Hospital Follow-up (thyroid) Assessment and Plan 1. Other thyrotoxicosis without thyrotoxic crisis or storm - T4, free - TSH - T3, free - Comprehensive metabolic panel 2. Thyroid nodule - US thyroid 3. Age-related osteoporosis without current pathological fracture 4. Debility Thyroid nodule -Patient has incidentally discovered right thyroid nodule on 11/[address] -Thyroid ultrasound revealed a 3.1 cm TR-4 R nodule which meets criteria for biopsy -she has no neck compressive symptoms -Counseled patient regarding the evaluation and management of thyroid nodule -- biopsy indicated but she is not amenable to surgery if malignant -- pt preferred to defer biopsy -- we can monitor with repeat US -will schedule US in [place] Thyrotoxicosis -Patient has thyroid labs consistent with thyrotoxicosis suppressed TSH and elevated free T4 -Possibly due to toxic thyroid nodule -She had episodes of tachycardia at dx --now resolved -Patient is at risk for complications related to hyperthyroidism given her advanced age and other comorbidities including osteoporosis -Unable to do a thyroid uptake and scan at that time due to recent IV contrast exposure -TRAb neg -repeat FT4 and FT3 levels not available -continue MMI 2.5 mg daily for now -Baseline LFTs normal -will FU on lab results --called [facility]; labs done 12/15 and were going to be faxed; waited 30 minutes in the office but results were still unavailable by the time patient's ride came Osteoporosis managed by PCP. Advised Ca/D supplementation. Unable to exercise due to her mobility issues. Avoid falls. Pt would benefit from pharmacotherapy. Follow up in about 23 weeks (around 06/09/2024) for thyroid. Subjective Thyroid disorder: Thyroid nodule, thyrotoxicosis/hyperthyroidism Onset of thyroid disorder: 11/23 Home regimen: none Biotin use: none Patient resides at [facility] with her . She has significant debility. She is wheelchair-bound. Patient was found to have an incidental right nodule on CTA on 10/23. CTA on 10/23/2023 showed a 3.5 cm hypodense nodule on the right lobe of the thyroid. No history of neck radiation. No neck compressive symptoms. TFTs were abnormal. Latest Reference Range & Units 11/13/23 12:11 11/14/23 05:56 THYROID STIMULATING HORMONE 0.465 - 4.680 uIU/mL <0.015 (L) T4, FREE 0.78 - 2.19 ng/dL 2.57 (H) T3, FREE 2.77 - 5.27 pg/mL 4.49 TSH on 10/23 was also suppressed at 0.082. Patient had normal TSH on 10/21. No prior history of thyroid disease. No family history of thyroid disease or thyroid cancer. No hyperthyroid symptoms. There is a history of heart failure in her chart. No history of arrhythmia or CAD. She has known osteoporosis. Not on treatment. Pt hospitalized 11/23 from SNF for AMS. She had Influenza A infection and bacteremia. Also had UTI. She returns today for FU. She resides at [facility]. moved in there as well and is doing well. Appetite is poor -- does not like the food No hyperthyroid symptoms --denies palpitations, tremors, excessive sweating No CP or SOB She has back pain and R shoulder pain She has diarrhea, some bowel incontinence She is bedbound; R knee swelling/pain No falls No neck compressive symptoms No lab results available Wt Readings from Last 4 Encounters: 12/31/23 120 lb (54.4 kg) 11/13/23 126 lb 8.7 oz (57.4 kg) 10/29/23 133 lb 14.4 oz (60.7 kg) 09/16/21 127 lb (57.6 kg) Review of Systems An entire ROS was performed at the time of this encounter. Unless noted above in the HPI, the ROS is negative. No Known Allergies Outpatient Medications Prior to Visit Medication Sig Dispense Refill acetaminophen (Tylenol) 500 MG tablet Take 500 mg by mouth every 6 hours as needed. cilostazol (Pletal) 100 MG tablet Take 100 mg by mouth 2 times daily. Docusate Sodium (DSS) 100 MG capsule Take 1 capsule by mouth 2 times daily. ergocalciferol (Vitamin D2) 1.25 MG (11584 UT) capsule Take 50,000 Units by mouth 1 (one) time per week. ferrous sulfate 325 (65 Fe) MG tablet Take 325 mg by mouth daily (with breakfast). Lidocaine 4 % patch Place 1 patch on the skin daily. methIMAzole (Tapazole) 5 MG tablet Take 0.5 tablets (2.5 mg) by mouth daily. 15 tablet 11 ondansetron ODT (Zofran-ODT) 4 MG disintegrating tablet Take 1 tablet by mouth every 8 hours as needed. polycarbophil (Fibercon) 625 MG tablet Take 625 mg by mouth daily. potassium chloride CR (Klor-Con) 10 MEQ ER tablet Take 40 mEq by mouth daily. Do not crush, chew, or split. carvedilol (Coreg) 3.125 MG tablet Take 3.125 mg by mouth daily. Hold if SBP less than 100 or HR less than 55 cetirizine (ZyrTEC) 10 MG chewable tablet Chew 10 mg daily. gabapentin (Neurontin) 100 MG capsule Take 100 mg by mouth 3 times daily. lisinopril 5 MG tablet pantoprazole (ProtoNix) 40 MG EC tablet Take 1 tablet (40 mg) by mouth every morning (before breakfast). Do not crush, chew, or split. (Patient not taking: Reported on 12/31/2023) simvastatin (Zocor) 10 MG tablet Take 10 mg by mouth Nightly. albuterol (2.5 MG/3ML) 0.083% nebulizer solution Take 2.5 mg by nebulization every 4 hours as needed for wheezing or shortness of breath. calcium carbonate (Tums) 500 MG chewable tablet Chew 500 mg daily. guaiFENesin (Mucinex) 600 MG 12 hr tablet Take 600 mg by mouth 2 times daily. Do not crush, chew, or split. ipratropium-albuterol (Duo-Neb) 0.5-2.5 mg/3 mL nebulizer solution Take 3 mL by nebulization in the morning and 3 mL at noon and 3 mL in the evening. No facility-administered medications prior to visit. Past Medical History: Diagnosis Date CHF (congestive heart failure) (FORMERLY [facility]) COPD (chronic obstructive pulmonary disease) ([facility]) Social History Tobacco Use Smoking status: Former Packs/day: 0.50 Years: 35.00 Additional pack years: 0.00 Total pack years: 17.50 Types: Cigarettes Start date: 1956 Quit date: 1991 Years since quittin.4 Smokeless tobacco: Never Substance Use Topics Alcohol use: Yes Comment: obdulia bullard Past Surgical History: Procedure Laterality Date HIP SURGERY Right HYSTERECTOMY KNEE SURGERY Bilateral LEG MUSCLE SURGERY (HISTORICAL) Left Family History Family history unknown: Yes Objective BP 121/51 (BP Location: Left arm, Patient Position: Sitting, BP Cuff Size: Adult) Pulse 94 Ht 5' 2" (1.575 m) Wt 120 lb (54.4 kg) BMI 21.95 kg/m Physical Exam Constitutional: General: She is not in acute distress. Eyes: General: No scleral icterus. Conjunctiva/sclera: Conjunctivae normal. Cardiovascular: Rate and Rhythm: Normal rate and regular rhythm. Heart sounds: Normal heart sounds. Pulmonary: Effort: Pulmonary effort is normal. No respiratory distress. Abdominal: General: There is distension. Palpations: Abdomen is soft. Tenderness: There is no abdominal tenderness. Genitourinary: Comments: In a wheelchair Musculoskeletal: General: Swelling (trace edema), tenderness (R knee) and deformity present. Skin: General: Skin is warm and dry. Findings: Lesion (Multiple keratosis) present. Neurological: Mental Status: She is alert. Psychiatric: Mood and Affect: Mood normal. Behavior: Behavior normal. Behavior is cooperative. Data Reviewed and Summarized Labs: No results found for: "HGBA1C" No components found for: "LABA1C" No components found for: "EAG" Lab Results Component Value Date NA 134 (L) 11/14/2023 K 4.1 11/14/2023 CL 108 (H) 11/14/2023 CO2 21 (L) 11/14/2023 BUN 9 11/14/2023 CREATININE 0.64 11/14/2023 CREATININE 0.50 (L) 10/06/2021 GLUCOSE 86 11/14/2023 CALCIUM 9.2 11/14/2023 Lab Results Component Value Date CHOL 152 09/11/2021 Lab Results Component Value Date TRIG 81 09/11/2021 Lab Results Component Value Date HDL 72 (H) 09/11/2021 No results found for: "LDLCALC" No results found for: "VLDL" Lab Results Component Value Date CHOLHDLRATIO 2 09/11/2021 No results found for: "MDXV74IQK" Lab Results Component Value Date TSH <0.015 (L) 11/13/2023 [id number] 137 04/10/2021 X9TGVFX 9.4 04/10/2021 Imaging/Testing: I have addressed the above chronic illnesses including management, progression, and benefits and side effects of treatment. I have reviewed prior records, interpreted test results and discussed management with the patient. Time personally spent with patient management on the day of service: 40 minutes. Portions of the information within this encounter were entered using an electronic dictation system. Best attempts were made to edit/proofread the information prior to note completion. Despite the review of information, some errors may remain. If there are questions related to the information contained within the note please contact the signing physician directly. documented in this encounter [facility] 11-29-2023 Telephone encounter Note Spoke with nursing staff. She will be able to attend office visit. They are arranging transportation. [facility] 11-29-2023 Miscellaneous Notes Spoke with nursing staff. She will be able to attend office visit. They are arranging transportation. Please schedule post hosp FU with me on 12/30 at 11:40 AM. She has mobility issues and resides at [facility]. If FTF visit is not possible, we can switch to [facility]. Nicholas, I have ordered labs to be done before that appt. Please coordinate with SNF. Thanks. documented in this encounter [facility] 11-15-2023 Hospital course Narrative Images from the original note were not included. Hospitalist Discharge Summary Adore Walter : 1935 Admit date: 11/13/2023 Discharge date: 11/15/2023 Admitting Physician: Travis Lawrence DO Primary Care Physician: Thais Talamantes Visit Status: obs Code Status: Full Code BRIEF HOSPITAL COURSE: Pt with h/o CHF, COPD, h/o Leg blood clots ( " over 50 yrs ago") , osteoporosis,L femur fracture, skin cancer She resides at SNF with and Aox 3 at baseline Pt was recently admitted 10/23/23-10/29/23 at [facility]. She required ICU for vasopressor support. Treated for Influeza A and strep parasanguinis bacteremia . Discharged to SNF with PICC and IV rocephin. just completed IV Rocephin on 11/10/2023 for streptococcus parasanguinis bacteremia. presented from [facility] due to AMS. On admission she reported "it smith in my right groin" when asked if it smith when she urinates. Patient states she had an episode at [facility] states she was confused and "something else was low". No chest pain or SOB. ED HR 108. pCO2 43 on VBG, Cr 0.73. Head CT showed only Cerebral atrophy and chronic small vessel ischemic disease. CXR showed bilateral chronic interstitial changes. She was admitted for further evaluation and management of AMS work-up Endocrinology started patient on methimazole. Urine grew out enterococcus faecium and she was started on abx Acute, acute on chronic, unstable/uncontrolled chronic problems/discharge diagnoses: Transient AMS Low TSH/ right thyroid lobe 3.5 cm nodule Hyponatremia History of PVC/HTN/ascending aortic aneurism/mild aortic stenosis Stage 1 Pressure ulcer of buttock Stable chronic problems affecting care, new non-acute discharge diagnoses: COPD Normocytic anemia HLD - cont lipitor Osteoporosis Vit D deficiency - cont vit D Debility - PT/OT eval Past Medical History: Diagnosis Date CHF (congestive heart failure) ([facility]) COPD (chronic obstructive pulmonary disease) ([facility]) Consults: IP WOUND CARE NURSE CONSULT TO EVAL IP CONSULT TO GERIATRICS IP CONSULT TO ENDOCRINOLOGY IP WOUND CARE NURSE CONSULT TO EVAL IP CONSULT TO DIETITIAN Discharge Instructions: Diet: Dietary Orders (From admission, onward) Start Ordered 11/13/23 1527 Adult diet Regular Diet effective now Question: Diet type Answer: Regular 11/13/23 1526 Activity: as tolerated Recommended Outpatient Tests: Disposition: Patient discharged in stable condition to SNF. Greater than 31 minutes spent discharging the patient and coming up with patient discharge plan. Vitals: BP 106/60 (BP Location: Left arm, Patient Position: Lying) Pulse 85 Temp 36.3 C (97.3 F) (Temporal) Resp 18 Ht 5' 2.01" (1.575 m) Wt 126 lb 8.7 oz (57.4 kg) SpO2 94% BMI 23.14 kg/m Pulse Ox: SpO2 Av % Min: 94 % Max: 94 % Supplemental O2: Physical Exam HENT: Head: Normocephalic. Nose: Nose normal. Mouth/Throat: Mouth: Mucous membranes are moist. Eyes: Extraocular Movements: Extraocular movements intact. Conjunctiva/sclera: Conjunctivae normal. Cardiovascular: Rate and Rhythm: Normal rate and regular rhythm. Pulmonary: Effort: Pulmonary effort is normal. Breath sounds: Normal breath sounds. Abdominal: Palpations: Abdomen is soft. Musculoskeletal: General: Normal range of motion. Cervical back: Normal range of motion. Skin: General: Skin is warm. Neurological: General: No focal deficit present. Mental Status: She is alert and oriented to person, place, and time. Psychiatric: Mood and Affect: Mood normal. Behavior: Behavior normal. LABS: Recent Labs 11/13/23 1211 11/14/23 0556 NA 136 134* K 4.5 4.1 CL 104 108* CO2 25 21* BUN 9 9 CREATININE 0.73 0.64 GLUCOSE 108* 86 CALCIUM 10.0 9.2 Recent Labs 11/13/23 1211 11/14/23 0556 WBC 5.8 5.6 RBC 4.18 4.01 HGB 12.7 11.9 11.4* HCT 37.5 35.7 MCV 89.7 89.0 MCH 28.5 28.4 MCHC 31.7 31.9 RDW 14.6 14.6 PLT 385 371 MPV 9.3 9.3 Discharge Medications: Medication List START taking these medications linezolid 600 MG tablet Commonly known as: Zyvox Take 1 tablet (600 mg) by mouth 2 times daily for 5 days. methIMAzole 5 MG tablet Commonly known as: Tapazole Take 0.5 tablets (2.5 mg) by mouth daily. Start taking on: November 16, 2023 CONTINUE taking these medications acetaminophen 500 MG tablet Commonly known as: Tylenol albuterol (2.5 MG/3ML) 0.083% nebulizer solution calcium carbonate 500 MG chewable tablet Commonly known as: Tums carvedilol 3.125 MG tablet Commonly known as: Coreg cetirizine 10 MG chewable tablet Commonly known as: ZyrTEC cilostazol 100 MG tablet Commonly known as: Pletal DSS 100 MG capsule ergocalciferol 1.25 MG (98785 UT) capsule Commonly known as: Vitamin D2 ferrous sulfate 325 (65 Fe) MG tablet gabapentin 100 MG capsule Commonly known as: Neurontin guaiFENesin 600 MG 12 hr tablet Commonly known as: Mucinex ipratropium-albuterol 0.5-2.5 mg/3 mL nebulizer solution Commonly known as: Duo-Neb Lidocaine 4 % patch lisinopril 5 MG tablet ondansetron ODT 4 MG disintegrating tablet Commonly known as: Zofran-ODT pantoprazole 40 MG EC tablet Commonly known as: ProtoNix Take 1 tablet (40 mg) by mouth every morning (before breakfast). Do not crush, chew, or split. polycarbophil 625 MG tablet Commonly known as: Fibercon potassium chloride CR 10 MEQ ER tablet Commonly known as: Klor-Con simvastatin 10 MG tablet Commonly known as: Zocor STOP taking these medications cefTRIAXone (Rocephin) IVPB Where to Get Your Medications These medications were sent to [facility] [address] [place] [address] Hours: Wednesday to Wednesday 10 am to 6 pm linezolid 600 MG tablet methIMAzole 5 MG tablet Recommended Follow-up: [facility] Wound Ostomy [address] [place] [id number] Complexity of Follow up: [] Moderate Complexity: follow up within 7-14 calendar days (72629) [x] Severe Complexity: follow up within 7 calendar days (31896) Follow up Testing, Pending results or Referrals at Transitional Care Visit: [x] yes [] no Check FT4 and FT3 in 1-2 weeks Thyroid ultrasound in 6 months PCP/Endo Instructions to MA: Please call patient on day after discharge (must document patient contacted within 2 business days of discharge). Follow up questions for MA: 1. Did you get medications filled and taking them as instructed from discharge? 2. Are you following your discharge instructions from your hospital stay? 3. Please confirm patient is scheduled for a follow up appointment within the above time frame. Signed: Curtis Amaral DO Division of Hospitalist Medicine Acute [facility] 11/15/2023, 4:57 PM documented in this encounter [facility] 11-15-2023 Note Formatting of this n ote might be different from the original. Requested to arrange transport for discharge back to [facility]. Ambulance set up with Alan Amilcar for 6 pm. Used cot due to change in mental status, low TSH, recent bactermeia, chf, pressure ulcers bilateral buttocks and neyda lift at facility. Updated patient, RN, Mail Deliverer, [facility] and [facility]. Patient aware of cot transport, she does not want me to call her who lives with her at [facility]-she wants to surprise him. Does not want me to notify anyone of her discharge. [facility] 11-15-2023 Note Formatting of this n ote might be different from the original. Requested to arrange transport for discharge back to [facility]. Ambulance set up with Alan Fitzgerald for 6 pm. Used cot due to change in mental status, low TSH, recent bactermeia, chf, pressure ulcers bilateral buttocks and neyda lift at facility. Updated patient, RN, Mail Deliverer, [facility] and [facility]. Patient aware of cot transport, she does not want me to call her who lives with her at [facility]-she wants to surprise him. Does not want me to notify anyone of her discharge. [facility] 11-15-2023 Miscellaneous Notes Requested to arrange transport for discharge back to [facility]. Ambulance set up with Alan [employer] for 6 pm. Used cot due to change in mental status, low TSH, recent bactermeia, chf, pressure ulcers bilateral buttocks and neyda lift at facility. Updated patient, RN, Mail Deliverer, [facility] and [facility]. Patient aware of cot transport, she does not want me to call her who lives with her at [facility]-she wants to surprise him. Does not want me to notify anyone of her discharge. Discharge med list transmitted to [facility] for return via [facility] per [facility] request. Care Managment Initial Assessment Date: 11/14/2023 Patient Name: Adore Walter : 1935 Patient Information Source of Information: Patient Cognition/Language: WFL - Within Functional Limits Permission given to speak with patient inside sales account representative/caregiver as indicated: Yes Confirmation of Payer with patient/family: Yes Payer Name: [employer]/ Medicare [employer] [employer] [place] [employer] Secondary [place]: No Confirmation of Primary Care Physician: Confirmed PCP Name: Thais Talamantes Seen in last 2 years?: Yes Primary Caregiver: Other (Comment) (Pt resides at [facility]) If assistance needed, confirmed caregiver ready, willing and able to care for patient at discharge: Confirmed with: Living Arrangements Current Residence: Number of Floors Number of Entry Steps: Bed/Bath Levels: Facility: Facility Name: [facility] Plan to Return: Yes Lives with: Spouse/significant other (Pt reports she stays in the same room with her at [facility]) Support Systems: Spouse/significant other, Children, Comments (Other) (Facility Staff) Activities of Daily Living Ambulation: Total Care (Pt reports she does not ambulate that her Right knee is broken and twisted. Pt reports she uses a wheel chair.) Bathing/Dressing: Assistance Elimination/Continence/Toileting: Assistance Feeding: Independent Who Assists with Activities of Daily Living: Facility staff at [facility] Instrumental Activities of Daily Living Prescription Coverage: Yes Pharmacy Used: Facility pharmacy Medication Management: Transportation/Shopping: Assistance Provider Transportation/Shopping Assistance Provider Name: [facility] or salvador Transportation Mode: Wheelchair van, Senior/disability transport service, Car Needs Assistance with Transportation at Discharge: Yes Meal Preparation: Assistance Provider Meal Prep Assistance Provider Name: [facility] Laundry/Cleaning: Assistance Provider Laundry/Cleaning Assistance Provider Name: [facility] Finances/Bill Paying: Assistance Provider Finances/Bill Payer Assistance Provider Name: [place] Communication: Independent Types of Care Services/Equipment Utilized Care Services: (n/a) Dialysis Type: NA Durable Medical Equipment: Wheelchair (standard or power) Patient's Goal/Discharge Plan Patient expects to be discharged to: Return to [facility] Discharge Planning Actions: Continue to follow Patient's Choice Rights and [employer] and Collaborative Relationships Disclosed as Indicated for Post-Acute Care: NA Interdisciplinary Team Engagement: Social Work Referral for: Transportation Assistance Additional Information: Chart reviewed. Pt here with c/o an episode of confusion/ aphasia. Geriatrics consulted. Met with pt at bedside (no family present at this time), introduced self and explained TCC role. Pt reports she lives at [facility] with her who she shares a room with. Additional information above obtained/ confirmed at this time. Pt reports she plans to return to [facility] upon dc and will need transportation set up to return upon dc. Return referral placed to [facility] in careport- await facility response. TCC will continue to follow for add'l needs for dc. Katrina Scherer RN Problem: Knowledge Deficit Goal: Patient/family/caregiver demonstrates understanding of disease process, treatment plan, medications, and discharge instructions Outcome: Progressing Problem: Potential for Compromised Skin Integrity Goal: Skin Integrity is Maintained or Improved Outcome: Progressing Goal: Nutritional status is improving Outcome: Progressing Problem: Urinary Incontinence Goal: Perineal skin integrity is maintained or improved Outcome: Progressing Patient's Ketan states she is Full code; [phone] Patient has poor insight into her code status. No documents available at this time. Son and [id number] did not cotton picker operator phone. Full Code. documented in this encounter [facility] 11-15-2023 Note Formatting of this n ote might be different from the original. Discharge med list transmitted to [facility] for return via [facility] per [facility] request. [facility] 11-15-2023 Note Formatting of this n ote might be different from the original. Discharge med list transmitted to [facility] for return via [facility] per [facility] request. [facility] 11-15-2023 Telephone encounter Note Please schedule post hosp FU with me on 12/30 at 11:40 AM. She has mobility issues and resides at [facility]. If FTF visit is not possible, we can switch to [facility] Nicholas I have ordered labs to be done before that appt. Please coordinate with SNF. Thanks. [facility] 11-15-2023 History of Present illness Narrative Department of Internal Medicine Division of Endocrinology, Diabetes, & Metabolism Endocrinology Note Patient Name: Adore Walter : 1935 AGE: 88 y.o. Room/Bed: [facility] A Admission Date: 11/13/2023 Visit Date: 11/15/2023 Reason for Endocrine Consult: Abnormal TFTs, thyroid nodule Provider/Team Requesting Consult: Dr. Valverde PCP: Thais Talamantes Outpt Jail Guard: No ASSESSMENT: Incidental right thyroid nodule Thyrotoxicosis Acute encephalopathy, resolved Debility Osteoarthritis Osteoporosis Recent bacteremia COPD HF PLAN: Thyroid nodule -Patient has incidentally discovered right thyroid nodule -This was a 3.5 cm right hypoechoic thyroid nodule on CT -No prior imaging studies for comparison -she has no neck compressive symptoms -Thyroid ultrasound revealed a 3.1 cm TR-4 R nodule which meets criteria for biopsy -Counseled patient regarding the evaluation and management of thyroid nodule -- discussed recommendation for biopsy although she is not amenable to surgery if malignant -- pt preferred to defer biopsy for now which is reasonable; we can monitor with serial US instead (ie. in 6 months) Thyrotoxicosis -Patient has thyroid labs consistent with thyrotoxicosis suppressed TSH and elevated free T4 -She is not significantly hyperthyroid on exam but has episodes of tachycardia -Mental status change may also be contributed by her thyrotoxicosis -Patient is at risk for complications related to hypothyroidism given her advanced age; patient also has other comorbidities including osteoporosis -Unable to do a thyroid uptake and scan due to recent IV contrast exposure -TRAb in process -continue MMI 2.5 mg daily -Baseline LFTs normal -Will monitor thyroid levels -- recheck FT4 and FT3 in 3-4 weeks -will sign off ANTICIPATED ENDOCRINE HOME GOING RECOMMENDATIONS: Optimized for Discharge from Endocrine standpoint: yes Home Going Endocrine Rx Recommendations-- Methimazole 2.5 mg daily Check FT4 and FT3 in 1-2 weeks Thyroid ultrasound in 6 months Outpt Follow Up-- PCP/Endo SUBJECTIVE/HPI: CHIEF COMPLAINT: Chief Complaint Patient presents with Altered Mental Status Patient arrives to ED via EMS from SNF for altered mental status. Patient is A&Ox2 at time of triage, patient complains of pain from bedsores. No further information from SNF, unknown baseline Thyroid disorder: Thyroid nodule, thyrotoxicosis/hyperthyroidism Onset of thyroid disorder: 11/23 Home regimen: none Biotin use: none Patient resides at [facility] with her . She has significant debility. She is wheelchair-bound. Patient was admitted due to change in mental status. Geriatrics following. Patient was found to have an incidental right nodule on CTA on 10/23. CTA on 10/23/2023 showed a 3.5 cm hypodense nodule on the right lobe of the thyroid. No history of neck radiation. No neck compressive symptoms. Recent TFTs were abnormal. Latest Reference Range & Units 11/13/23 12:11 11/14/23 05:56 THYROID STIMULATING HORMONE 0.465 - 4.680 uIU/mL <0.015 (L) T4, FREE 0.78 - 2.19 ng/dL 2.57 (H) T3, FREE 2.77 - 5.27 pg/mL 4.49 Of note, TSH on 10/23 was also suppressed at 0.082. Patient had normal TSH on 10/21. No prior history of thyroid disease. No family history of thyroid disease or thyroid cancer. No hyperthyroid symptoms. There is a history of heart failure in her chart. No history of arrhythmia or CAD. She has known osteoporosis. Not on treatment. Interim history: -pt laying in bed -has been coughing -no SOB -wanted to know results of MRI -- this may have been discussed with her previously by primary -no new symptoms -discussed results of thyroid US -TRAB in process -asking when can she return to SNF Glucose Date/Time Value Ref Range Status 10/23/2023 09:29 PM 86 70 - 100 mg/dL Final Glucose Blood, POC Date/Time Value Ref Range Status 10/03/2021 07:59 PM 161 (H) 70 - 100 mg/dL Final Comment: Test performed by glucose meter. Results may be 10%-15% lower than serum/plasma values. (CLIA ID [id number]) 10/03/2021 04:49 PM 191 (H) 70 - 100 mg/dL Final Comment: Test performed by glucose meter. Results may be 10%-15% lower than serum/plasma values. (CLIA ID [id number]) 10/03/2021 11:26 AM 144 (H) 70 - 100 mg/dL Final Comment: Test performed by glucose meter. Results may be 10%-15% lower than serum/plasma values. (CLIA ID [id number]) 10/02/2021 09:18 PM 106 (H) 70 - 100 mg/dL Final Comment: Test performed by glucose meter. Results may be 10%-15% lower than serum/plasma values. (CLIA ID [id number]) 10/02/2021 11:43 AM 138 (H) 70 - 100 mg/dL Final Comment: Test performed by glucose meter. Results may be 10%-15% lower than serum/plasma values. (CLIA ID [id number]) 10/02/2021 06:21 AM 122 (H) 70 - 100 mg/dL Final Comment: Test performed by glucose meter. Results may be 10%-15% lower than serum/plasma values. (CLIA ID [id number]) Review of Systems ROS negative except for those mentioned in HPI. OBJECTIVE: Vitals: 11/14/23 1351 11/14/23 1646 11/14/23 1956 11/15/23 0736 BP: 122/68 107/78 114/63 106/60 BP Location: Left arm Left arm Left arm Left arm Patient Position: Lying Lying Lying Lying Pulse: 114 108 99 85 Resp: 18 18 Temp: 36.2 C (97.2 F) 36.3 C (97.3 F) TempSrc: Temporal Temporal SpO2: 95% 94% 94% Weight: Height: Physical Exam Constitutional: General: She is not in acute distress. Eyes: General: No scleral icterus. Conjunctiva/sclera: Conjunctivae normal. Cardiovascular: Rate and Rhythm: Normal rate and regular rhythm. Pulmonary: Effort: Pulmonary effort is normal. No respiratory distress. Abdominal: General: There is no distension. Palpations: Abdomen is soft. Tenderness: There is no abdominal tenderness. Musculoskeletal: General: Deformity present. No swelling. Skin: General: Skin is warm and dry. Findings: Lesion (Multiple keratosis) present. Neurological: Mental Status: She is alert. Psychiatric: Mood and Affect: Mood normal. Behavior: Behavior normal. Behavior is cooperative. 24 hour intake/output: Intake/Output Summary (Last 24 hours) at 11/15/2023 1118 Last data filed at 11/15/2023 0500 Gross per 24 hour Intake 480 ml Output 750 ml Net -270 ml Diet: Adult diet Regular Medications (as per EMR): HomeMeds: Current Outpatient Medications Medication Instructions acetaminophen (TYLENOL) 500 mg, Oral, Every 6 hours PRN albuterol 2.5 mg, Nebulization, Every 4 hours PRN calcium carbonate (TUMS) 500 mg, Oral, Daily carvedilol (COREG) 3.125 mg, Oral, Daily, Hold if SBP less than 100 or HR less than 55 cetirizine (ZYRTEC) 10 mg, Oral, Daily cilostazol (PLETAL) 100 mg, Oral, 2 times daily Docusate Sodium (DSS) 100 MG capsule 1 capsule, Oral, 2 times daily ergocalciferol (Vitamin D2) 1.25 MG (54964 UT) capsule No dose, route, or frequency recorded. ferrous sulfate 325 mg, Oral, Daily with breakfast gabapentin (NEURONTIN) 100 mg, Oral, 3 times daily guaiFENesin (MUCINEX) 600 mg, Oral, 2 times daily, Do not crush, chew, or split. ipratropium-albuterol (Duo-Neb) 0.5-2.5 mg/3 mL nebulizer solution 3 mL, Nebulization, 3 times daily Lidocaine 4 % patch 1 patch, TransDERmal, Daily lisinopril 5 MG tablet No dose, route, or frequency recorded. ondansetron ODT (Zofran-ODT) 4 MG disintegrating tablet 1 tablet, Oral, Every 8 hours PRN pantoprazole (PROTONIX) 40 mg, Oral, Daily before breakfast, Do not crush, chew, or split. polycarbophil (FIBERCON) 625 mg, Oral, Daily potassium chloride CR (Klor-Con) 10 MEQ ER tablet 40 mEq, Oral, Daily, Do not crush, chew, or split. simvastatin (Zocor) 10 MG tablet No dose, route, or frequency recorded. Scheduled Meds:atorvastatin, 10 mg, Oral, Nightly carvedilol, 3.125 mg, Oral, BID WC cetirizine, 5 mg, Oral, Daily cilostazol, 100 mg, Oral, BID enoxaparin, 40 mg, SubCUTAneous, Daily ergocalciferol, 1.25 mg, Oral, Weekly gabapentin, 100 mg, Oral, TID Lidocaine, 1 patch, TransDERmal, Daily Lidocaine, 1 patch, TransDERmal, Daily melatonin, 3 mg, Oral, Nightly methIMAzole, 2.5 mg, Oral, Daily miconazole, , Topical, BID polycarbophil, 625 mg, Oral, Daily potassium chloride CR, 40 mEq, Oral, Daily senna-docusate sodium, 2 tablet, Oral, Daily stomahesive in petrolatum, , Topical, BID Continuous Infusions:sodium chloride, 75 mL/hr, Last Rate: 75 mL/hr (11/14/232106) PRN Meds:PRN medications: acetaminophen, guaiFENesin, ipratropium-albuterol, metoprolol, ondansetron, polyethylene glycol (PEG) 3350 Diagnostic Workup: I reviewed pertinent Laboratory results, Radiographic results, and Other Clinical Notes at the time of today's encounter. Labs: No components found for: "LABA1C" No components found for: "EAG" Lab Results Component Value Date NA 134 (L) 11/14/2023 K 4.1 11/14/2023 CL 108 (H) 11/14/2023 CO2 21 (L) 11/14/2023 BUN 9 11/14/2023 CREATININE 0.64 11/14/2023 GLUCOSE 86 11/14/2023 CALCIUM 9.2 11/14/2023 Lab Results Component Value Date CHOL 152 09/11/2021 Lab Results Component Value Date TRIG 81 09/11/2021 Lab Results Component Value Date HDL 72 (H) 09/11/2021 No results found for: "LDLCALC" No results found for: "VLDL" Lab Results Component Value Date CHOLHDLRATIO 2 09/11/2021 No results found for: "CYJF28ARG" Lab Results Component Value Date TSH <0.015 (L) 11/13/2023 [id number] 137 04/10/2021 B5ZPXLT 9.4 04/10/2021 Exam Date/Time: 11/14/2023 13:36 Procedure: US HEAD NECK SOFT TISSUE Ordering Provider: BARAKAT RACHEL Reason For Exam: THYROID NODULE ULTRASOUND THYROID: CLINICAL INDICATION: Thyroid nodule. TECHNIQUE: Ultrasonographic evaluation of the thyroid including color flow imaging. COMPARISON: Correlation is made with CT chest, abdomen and pelvis dated 10/23/2023. FINDINGS: Exam is limited as patient was agitated and could not hold still for exam. RIGHT LOBE: Size: Normal size. 3.5 x 2.7 x 4.9 cm (AP x transverse x sagittal). Heterogeneous echotexture. Nodules: 1 Nodule Location: Mid right thyroid nodule Size: 2.5 x 2.7 x 3.1 cm (AP, transverse, sagittal) Composition: Solid (+2) Echogenicity: Hypoechoic (+2) Margins: Ill-defined (0) Calcifications: None (0) TI-RADS score*: 4 - moderately suspicious Change since last exam: Not applicable LEFT LOBE: Size: Normal size. 1.5 x 1.1 x 3.5 cm (AP x transverse x sagittal). Heterogeneous echotexture. Nodules: 1 Nodule Location: Mid left thyroid gland Size: 0.3 x 0.4 x 0.4 cm (AP, transverse, sagittal) Composition: Solid (+2) Echogenicity: Hypoechoic (+2) Margins: Ill-defined (0) Calcifications: None (0) TI-RADS score*: 4 - moderately suspicious Change since last exam: Not applicable ISTHMUS: Normal. CERVICAL LYMPH NODES: None identified. IMPRESSION: 1. Limited evaluation of the thyroid gland due to uncooperative patient. 2. Heterogeneous thyroid gland. 3. 3.1 cm right mid thyroid hypoechoic nodule (TIRAD 4-moderately suspicious). This nodule is amenable to fine-needle aspiration. 4. 0.4 cm left mid thyroid hypoechoic nodule (TIRAD 4-moderately suspicious). This nodule is less than 1 cm and does not require follow-up.. History/Other: Past Medical History: Past Medical History: Diagnosis Date CHF (congestive heart failure) (HCC) COPD (chronic obstructive pulmonary disease) (HCC) Past Surgical History: Past Surgical History: Procedure Laterality Date HIP SURGERY Right HYSTERECTOMY KNEE SURGERY Bilateral LEG MUSCLE SURGERY (HISTORICAL) Left Allergy(ies): No Known Allergies Family History: No family history on file. Social History: Social History Tobacco Use Smoking status: Former Packs/day: 0.50 Years: 35.00 Additional pack years: 0.00 Total pack years: 17.50 Types: Cigarettes Start date: 1956 Quit date: 1991 Years since quittin.3 Smokeless tobacco: Never Substance Use Topics Alcohol use: Yes Comment: obdulia bullard Drug use: Never Portions of the information within this encounter were entered using an electronic dictation system. Best attempts were made to edit/proofread the information prior to note completion. Despite the review of information, some errors may remain. If there are questions related to the information contained within the note please contact the signing physician directly. I spent 35 minutes with the pt which involved coordination of care, medical evaluation, review of records, and/or counseling of the pt regarding his/her condition/disease state/prognosis on the date of this note. [facility] Geriatric Medicine Inpatient Consult Service Admission Date: 11/13/2023 Assessment/Plan Principal Problem: Aphasia Acute metabolic encephalopathy -- appears to be resolved at this time, not currently encephalopathic at time of visit --Etiology likely in setting of recent admission and illness/ multiple recent transitions of care, thyrotoxicosis (endo following) --No antipsychotic unless patient is danger to self/others/treatment --Continue scheduled melatonin at HS --Monitor for constipation/urinary retention - last BM 11/13 --Possible medication contributions: Continue home gabapentin -- Vitamin B12, ammonia, folate within normal limits --Encourage PO intake, time up in chair, family visits, supervised ambulation, and sleep hygiene Debility - Risk factors include: Increased age Poor mobility prior to admit - use of assistive devices Need assist with ADL or IADL before admit Prior history of falls or incontinence - Encourage adequate sleep, nourishment, pain control, provide schedules, ambulate as tolerate - Continue Physical Therapy/ Occupational Therapy with goal to improve function - PT currently recommending SNF- plan to return to [facility] Low TSH - TSH low, T4 free elevated - Endocrinology consulted- Methimazole 2.5mg started Follow-up: as needed, please page for questions Subjective: Chief Complaint: Chief Complaint Patient presents with Altered Mental Status Patient arrives to ED via EMS from SNF for altered mental status. Patient is A&Ox2 at time of triage, patient complains of pain from bedsores. No further information from SNF, unknown baseline Geriatrics consulted for intermittent confusion at facility" HPI- patient is new to me, previously seen by inpatient geriatric consult service 88 y.o. year-old female presented from [facility] of [facility] for altered mental status. Found to have low TSH- Interval history: remains on 6W No documented overnight events, Free T4 elevated yesterday, Endocrinology started patient on Methimazole 2.5mg, also plan for outpatient thyroid ultrasound to follow up on thyroid nodule. Patient reports that she is doing well today, anxious to be discharged back to facility, she denies pain or other complaints, appetite has been fair, sleeping well. She denies further episodes of confusion. She knows that she is currently at "[facility]" Therapy recommendations Seen by PT- recommending SNF Review of Systems Respiratory: Negative for chest tightness and shortness of breath. Cardiovascular: Negative for chest pain. Gastrointestinal: Negative for abdominal pain and nausea. Genitourinary: Negative for difficulty urinating. Musculoskeletal: Negative for arthralgias. Neurological: Negative for dizziness and headaches. Psychiatric/Behavioral: Negative for confusion (resolved) and sleep disturbance. Objective: BP 106/60 (BP Location: Left arm, Patient Position: Lying) Pulse 85 Temp 36.3 C (97.3 F) (Temporal) Resp 18 Ht 5' 2.01" (1.575 m) Wt 126 lb 8.7 oz (57.4 kg) SpO2 94% BMI 23.14 kg/m Intake/Output Summary (Last 24 hours) at 11/15/2023 1049 Last data filed at 11/15/2023 0500 Gross per 24 hour Intake 480 ml Output 750 ml Net -270 ml Wt Readings from Last 3 Encounters: 11/13/23 126 lb 8.7 oz (57.4 kg) 10/29/23 133 lb 14.4 oz (60.7 kg) 09/16/21 127 lb (57.6 kg) Current Facility-Administered Medications: acetaminophen (Tylenol) tablet 650 mg, 650 mg, Oral, q6h PRN, Travis Lawrence DO atorvastatin (Lipitor) tablet 10 mg, 10 mg, Oral, Nightly, Travis Lawrence DO, 10 mg at 11/14/232103 carvedilol (Coreg) tablet 3.125 mg, 3.125 mg, Oral, BID DANIA, Charles Whitley MD, 3.125 mg at 11/15/23 0800 cetirizine (ZyrTEC) tablet 5 mg, 5 mg, Oral, Daily, Travis Lawrence DO, 5 mg at 11/15/23 0800 cilostazol (Pletal) tablet 100 mg, 100 mg, Oral, BID, Travis Lawrence DO, 100 mg at 11/15/23 0800 enoxaparin (Lovenox) syringe 40 mg, 40 mg, SubCUTAneous, Daily, Travis Lawrence DO, 40 mg at 11/15/23 08 ergocalciferol (Vitamin D2) capsule 1.25 mg, 1.25 mg, Oral, Weekly, Travis Lawrence DO, 1.25 mg at 11/15/23 08 gabapentin (Neurontin) capsule 100 mg, 100 mg, Oral, TID, Jannette Miranda MD, 100 mg at 11/15/23 0800 guaiFENesin (Mucinex) 12 hr tablet 600 mg, 600 mg, Oral, BID PRN, Travis Lawrence DO ipratropium-albuterol (Duo-Neb) 0.5-2.5 mg/3 mL nebulizer solution 3 mL, 3 mL, Nebulization, q4h PRN, Travis Lawrence DO Lidocaine 4 % patch 1 patch, 1 patch, TransDERmal, Daily, Travis Lawrence DO, 1 patch at 11/15/23 08 Lidocaine 4 % patch 1 patch, 1 patch, TransDERmal, Daily, Travis Lawrence DO, 1 patch at 11/14/23 0910 melatonin tablet 3 mg, 3 mg, Oral, Nightly, Travis Lawrence DO, 3 mg at 11/14/23 2104 methIMAzole (Tapazole) tablet 2.5 mg, 2.5 mg, Oral, Daily, Brent Barakat MD, 2.5 mg at 11/15/23 08 metoprolol tartrate (Lopressor) injection 5 mg, 5 mg, IntraVENous, q6h PRN, Sully Valverde DO miconazole (Micotin) 2 % powder, , Topical, BID, Travis Lawrence DO, Given at 11/15/23 0802 ondansetron (Zofran) injection 4 mg, 4 mg, IntraVENous, q6h PRN, Travis Lawrence DO polycarbophil (Fibercon) tablet 625 mg, 625 mg, Oral, Daily, Travis Lawrence DO, 625 mg at 11/15/23 0801 polyethylene glycol (PEG) 3350 (Miralax) packet 17 g, 17 g, Oral, q12h PRN, Travis Lawrence DO potassium chloride CR (Klor-Con M10) ER tablet 40 mEq, 40 mEq, Oral, Daily, Travis Lawrence DO, 40 mEq at 11/15/23 0800 senna-docusate sodium (Senokot-S) 8.6-50 MG tablet 2 tablet, 2 tablet, Oral, Daily, Sully Alarconmin, DO, 2 tablet at 11/15/23 0800 sodium chloride 0.9 % infusion, 75 mL/hr, IntraVENous, Continuous, Sullyeladio Alarconmin, DO, Last Rate: 75 mL/hr at 11/14/23 2107, 75 mL/hr at 11/14/23 2107 stomahesive in petrolatum (ET Mix), , Topical, BID, Travis Lawrence DO, Given at 11/15/23 0802 Physical Exam Vitals reviewed. Constitutional: Comments: Sitting up in bed, pleasant and cooperative with exam Eyes: General: Right eye: No discharge. Left eye: No discharge. Conjunctiva/sclera: Conjunctivae normal. Cardiovascular: Rate and Rhythm: Normal rate and regular rhythm. Heart sounds: No murmur heard. Pulmonary: Effort: Pulmonary effort is normal. No respiratory distress. Breath sounds: Normal breath sounds. Abdominal: General: Abdomen is flat. Bowel sounds are normal. There is no distension. Palpations: Abdomen is soft. Musculoskeletal: Right lower leg: No edema. Left lower leg: No edema. Neurological: Mental Status: She is alert and oriented to person, place, and time. Sensory: No sensory deficit. Comments: Alert and oriented to self, place, and date- able to recognize that today is tax day Follows commands Psychiatric: Mood and Affect: Mood normal. Behavior: Behavior normal. Labs and Imaging: No results found for this or any previous visit (from the past 24 hour(s)). Lab Results Component Value Date TSH <0.015 (L) 11/13/2023 No components found for: "B12" No results found for: "VITD25" Reviewed: active problem list, medication list, notes from last encounter, lab results, imaging Patient lab for thyroid can be added on from morning specimen. BP recheck is 122/68. She is tachycardic at 114. Dr. Valverde notified. Images from the original note were not included. PHYSICAL THERAPY [facility] Initial Evaluation Name/MRN: Adore Walter ([id number]) Evaluation Date: 11/14/2023 Date of : 1935 Admission Date: 11/13/2023 11:17 AM Age: 88 y.o. Room/Bed: [facility] A Discharge Recommendation: [facility] Assessment IMPRESSION: pt resident of [facility] x3 years; states she does not amb and facility uses a Neyda to get her into a wc, but states she is able to efficiency engineer the shower holding a grab bar to transfer to shower or wc; pt unable to stand with max assist with ww; feet sliding forward as pt tries to stand; appears to be functioning below her baseline; recommend SNF level therapy post acute care Diagnosis: aphasia Prognosis: fair Performance Deficits /Impairments: Decreased Functional Mobility, Decreased ROM, Decreased Strength, and Decreased Balance Decision Making: Medium Complexity Subjective Pleasant and cooperative Pain: Pt denies any current pain. Past Medical History: Past Medical History: Diagnosis Date CHF (congestive heart failure) ([facility]) COPD (chronic obstructive pulmonary disease) ([facility]) Past Surgical History: Past Surgical History: Procedure Laterality Date HIP SURGERY Right HYSTERECTOMY KNEE SURGERY Bilateral LEG MUSCLE SURGERY (HISTORICAL) Left Admission Diagnosis: Patient Active Problem List Diagnosis Date Noted Aphasia 11/13/2023 NSTEMI (non-ST elevated myocardial infarction) ([facility]) 10/23/2023 Faith-prosthetic femoral shaft fracture 10/01/2021 Periprosthetic fracture around internal prosthetic joint 09/25/2021 Hypertensive urgency 09/25/2021 Gait instability 09/25/2021 Intractable neuropathic pain of left knee 09/25/2021 Hyponatremia 09/25/2021 Hyperglycemia 09/25/2021 Thoracic aortic aneurysm without rupture (HCC) 09/09/2021 Essential hypertension 12/14/2020 LV dysfunction 12/14/2020 Ectopic cardiac beats 12/14/2020 Chronic obstructive pulmonary disease (HCC) 09/19/2019 Hydronephrosis, bilateral 01/03/2019 OAB (overactive bladder) 12/08/2018 Primary osteoarthritis of right hip 06/14/2017 History of total left hip replacement 06/14/2017 Presence of retained hardware 06/14/2017 Hypercholesterolemia 11/11/2015 Osteoporosis 11/11/2015 Medical Precautions: No active isolations Proper PPE donned/doffed in accordance with facility standards. Fall Risk: Cavazos Fall Risk Score: 75 (High Risk) Precautions/Restrictions: N/A Family/Caregiver Present: none Overall Cognitive Status: WFL Overall Orientation Status: Disoriented to Time and Disoriented to Place confused to name of hospital and day Vision: not assessed this session Hearing: impaired Social/Functional History [facility] [place]; shares room with ; resident x3 years Prior Level of Function ADL Assistance: Needs Assist Ambulation Assistance: Non-Ambulatory Transfer Assistance: Needs Assist Neyda to transfer in / out of bed; able to stand to transfer in shower Objective Lower Extremity Assessment AROM: Impaired: Rt knee -10 deg extension; Lt knee 45 flexion; hip flexion < 50% diana PROM: Impaired: Rt knee -10 deg extension; Lt knee 45 flexion Strength: Lower Extremity Strength Right Left Hip Flexion 2- 2- Hip Abduction Hip Extension Hip External Rotation (ER) Hip Internal Rotation (IR) Knee Extension 4 4 Knee Flexion Ankle Dorsiflexion (DF) 4 4 Ankle Plantarflexion (PF) Inversion Eversion Bed Mobility: Supine to sit: Supervision Scooting: Mod Assist Transfers Sit to stand: Attempted 3x; unable to stand with max assist and ww for support; difficulty positioning feet under SIDRA due to ROM limitations; feet sliding forward as pt attempts to stand Ambulation Non amb Outcome Measures AM-PAC How much HELP from another person do you currently need Turning from your back to your side while in a flat bed without using bedrails?: A Little Moving from lying on your back to sitting on the side of a flat bed without using bedrails?: A Little Moving to and from a bed to a chair (including a wheelchair)?: Total Standing up from a chair using your arms (wheelchair or bedside chair)?: Total Walking in a hospital room?: Total Stair climbing assessed?: No AM-PAC Inpatient Mobility Raw Score (No Stairs) : 9 JH-HLM JH-HLM Score: Sat at edge of bed Plan Pt would benefit from skilled acute PT services to address Strengthening, ROM, Balance Training, Functional Mobility Training, Endurance Training, Safety Education and Training, and Patient/Caregiver Training. Frequency: 2x/week for 4 weeks Barriers: Long standing deficits Safety/Education Safety Safety Devices in place: call light within reach, left in bed, bed alarm in place, gait belt, and patient at risk for falls Restraints: No Education Education Given To: patient Education Provided: PT Role, PT Goals, IADL Safety, and Discharge Recommendations Education Method: Verbal Barriers to Learning: Education Outcome: Goals Patient Stated Goal: To go home Encounter Problems Encounter Problems (Active) Transfers Patient will perform bed mobility with supervision in order to improve independence and prepare for out of bed mobility. Start: 11/14/23 Expected End: 12/12/23 Patient will complete functional transfer with no assistive device with min assist in order to prepare for transfers Start: 11/14/23 Expected End: 12/12/23 Therapy Time Individual Co-treatment Time In 1334 Time Out 1345 Minutes 11 This PT wore gloves throughout the entire session. Plan to be activated only if patient is admitted or for assessing discharge needs. Nohemi Arteaga, PT Patient's Physical Therapy Plan of Care supervision is transferred to a [facility] Therapy Services Physical Therapist. Goals and/or treatment plan was established in collaboration with patient/family/other representatives. Patient chart says she has a PICC. She does not have one. Patient stated that it was removed in [place]. It will not let nurse remove from chart. Images from the original note were not included. Hospitalist Progress Note 11/14/2023 Subjective: Admit Date: 11/13/2023 PCP: Thais Talamantes Room#: [id number]/[id number] A Chief Complaint Patient presents with Altered Mental Status Patient arrives to ED via EMS from [facility] for altered mental status. Patient is A&Ox2 at time of triage, patient complains of pain from bedsores. No further information from SNF, unknown baseline BRIEF HOSPITAL COURSE: Pt with h/o CHF, COPD, h/o Leg blood clots ( " over 50 yrs ago") , osteoporosis,L femur fracture, skin cancer She resides at [facility] with and Aox 3 at baseline Pt was recently admitted 10/23/23-10/29/23 at [facility]. She required ICU for vasopressor support. Treated for Influeza A and strep parasanguinis bacteremia . Discharged to SNF with PICC and IV rocephin. just completed IV Rocephin on 11/10/2023 for streptococcus parasanguinis bacteremia. presented from [facility] due to AMS. On admission she reported "it smith in my right groin" when asked if it smith when she urinates. Patient states she had an episode at [facility] states she was confused and "something else was low". No chest pain or SOB. ED HR 108. pCO2 43 on VBG, Cr 0.73. Head CT showed only Cerebral atrophy and chronic small vessel ischemic disease. CXR showed bilateral chronic interstitial changes. She was admitted for further evaluation and management of AMS work-up Interval History: BP low this am She reports feeling better and asking if she can go back home today Case and plan discussed with patient and bedside nurse. All questions answered. Adult diet Regular 24HR INTAKE/OUTPUT: Intake/Output Summary (Last 24 hours) at 11/14/2023 0757 Last data filed at 11/14/2023 0500 Gross per 24 hour Intake -- Output 500 ml Net -500 ml Past Medical History: Past Medical History: Diagnosis Date CHF (congestive heart failure) ([facility]) COPD (chronic obstructive pulmonary disease) ([facility]) LABS: CBC: Recent Labs 11/13/23 1211 11/14/23 0556 WBC 5.8 5.6 RBC 4.18 4.01 HGB 12.7 11.9 11.4* HCT 37.5 35.7 MCV 89.7 89.0 RDW 14.6 14.6 PLT 385 371 BMP: Recent Labs 11/13/23 1211 11/14/23 0556 NA 136 134* K 4.5 4.1 CL 104 108* CO2 25 21* BUN 9 9 CREATININE 0.73 0.64 GLUCOSE 108* 86 CALCIUM 10.0 9.2 ANIONGAP 6 6 LIVER PROFILE: Recent Labs 11/13/23 1211 AST 23 ALT 11 BILITOT 1.1 ALKPHOS 75 PROT 6.5 PT/INR: No results for input(s): "PROTIME", "INR" in the last 72 hours. CARDIAC ENZYMES: Recent Labs 11/13/23 1211 TROPONINI <0.012 Procalcitonin: Lab Results Component Value Date PROCAL 0.03 11/13/2023 COVID-19 PCR: No results for input(s): "COVID19" in the last 72 hours. Objective: Vitals: BP 96/64 Pulse 95 Temp 36.2 C (97.2 F) (Temporal) Resp 19 Ht 5' 2.01" (1.575 m) Wt 126 lb 8.7 oz (57.4 kg) SpO2 93% BMI 23.14 kg/m Pulse Ox: SpO2 Av.4 % Min: 93 % Max: 98 % Supplemental O2: Physical Exam Vitals and nursing note reviewed. Constitutional: General: She is not in acute distress. Appearance: She is ill-appearing (chronically). HENT: Head: Normocephalic and atraumatic. Mouth/Throat: Mouth: Mucous membranes are moist. Eyes: Extraocular Movements: Extraocular movements intact. Cardiovascular: Rate and Rhythm: Normal rate and regular rhythm. Pulmonary: Effort: Pulmonary effort is normal. No respiratory distress. Abdominal: General: Bowel sounds are normal. There is no distension. Tenderness: There is no abdominal tenderness. Musculoskeletal: General: No swelling or tenderness. Cervical back: Neck supple. Skin: General: Skin is warm and dry. Neurological: General: No focal deficit present. Mental Status: She is alert. Psychiatric: Mood and Affect: Mood normal. Medications: Scheduled PRN atorvastatin, 10 mg, Oral, Nightly carvedilol, 3.125 mg, Oral, BID WC cetirizine, 5 mg, Oral, Daily cilostazol, 100 mg, Oral, BID enoxaparin, 40 mg, SubCUTAneous, Daily [START ON 11/15/2023] ergocalciferol, 1.25 mg, Oral, Weekly gabapentin, 100 mg, Oral, TID Lidocaine, 1 patch, TransDERmal, Daily Lidocaine, 1 patch, TransDERmal, Daily melatonin, 3 mg, Oral, Nightly miconazole, , Topical, BID polycarbophil, 625 mg, Oral, Daily potassium chloride CR, 40 mEq, Oral, Daily stomahesive in petrolatum, , Topical, BID PRN medications: acetaminophen, guaiFENesin, ipratropium-albuterol, ondansetron, polyethylene glycol (PEG) 3350 Continuous Assessment Data: (CAT1) Reviewed 3 or more notes from different specialty or health system (each=1). (CAT1) Reviewed 3 or more labs/studies ordered by another provider not previously counted (each=1, panels count as 1). (CAT3) Mgmt of the patient was discussed with RN regarding pt's condition,meds, Tx plan, DC plan (LOW: 2x CAT1 or independent historian MOD: 3x CAT1 or 1x CAT3 EXTENSIVE: 3x CAT1 and 1x CAT3) Acute, acute on chronic, unstable/uncontrolled chronic problems/diagnoses: Transient AMS episode - afebrile, BP on a lower side this am --> IVF and monitor - ammonia wnl, b12 wnl - tsh low --> AMS possibly related to thyrotoxicosis - check MAT - UA with wbc --> uCx pending - on chart review - she had multiple admissions where she had confusion on presentation === 11/13/23 ===MR BRAIN WO CONTRAST 1. Atrophy and likely chronic small vessel ischemic changes. No acute intracranial finding. 2. 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 Consider MRA for further evaluation if indicated. 3. Fluid in the mastoid air cells bilaterally may relate to mastoiditis. C/s geriatrics low TSH/ right thyroid lobe 3.5 cm hypodense nodule - TSH <0.015 - free T4 = 2.57 - elevated - free T3 = 4.49 - wnl - cortisol - 14.2, however collected at noon She is noted to be tachycardic Hyponatremia - in setting of low tsh - IVF and monitor History of PVC/HTN/ascending aortic aneurism/mild aortic stenosis - BP low this am --> NS bolus, then NS @75 - hold coreg 3.125 or now Stage 1 Pressure ulcer of buttock , subsequent encounter - wound care Stable chronic problems affecting care, new non-acute diagnoses: COPD Normocytic anemia - b12, folate wnl HLD - cont lipitor Osteoporosis Vit D deficiency - cont vit D Debility - PT/OT eval Plan As a result of the above findings & factors, the following mgmt was pursued: - as above - ? Indication for Pletal and gabapentin. PVD/claudication and neuropathy not listed in the chart - am labs, replace lytes prn - PT/OT/CM/SW - delirium precautions: increase activity, limit nighttime disturbances, and avoid anticholinergic meds, benzos, etc - DVT prophylaxis: enoxaparin Complexity: Acute illness or injury posing a threat to life or body function (HIGH). Risk: Prescription drug/IVF/colloid was initiated, discontinued, adjusted; or reviewed with decision to maintain current orders (MOD). Advance Directive: Full Code Anticipated Discharge - Date - tbd - Location - Skilled Facility - Pending the following - clinical course Total time spent (which include face to face and non face to face encounters) : minutes Toxic drug monitoring/narrow therapeutic index drug monitoring : # Drug name : # Route administered : # Method of monitoring : Extended Emergency Contact Information Primary Emergency Contact: Marta,Ketan Mobile Relation: Spouse Secondary Emergency Contact: Popeye Walter Relation: Child Sully Valverde DO Division of Hospitalist Medicine [facility] (formerly [facility]) patient is not able to answer the screening questions accurately for the MRI will need KUB xray, per radiology note Dr Lawrence notified via secure chat, see new orders.. admission is complete, pt has redness on labia and groin, buttocks, stage 2 bilateral buttocks, med list is updated, urine sent, pt eating and is comfortable at this time, will need ET mix, miconazole powder, Dr Lawrence notified via secure chat. .s Will need KUB Xray for MRI clearance please given AMS status documented in this encounter [facility] 11-15-2023 Consult note Associated Order (s): IP WOUND CARE NURSE CONSULT TO EVAL; IP WOUND CARE NURSE CONSULT TO EVAL Images from the original note were not included. [facility] Wound Care CONSULT Note Adore Walter AGE: 88 y.o. GENDER: female : 1935 Subjective: HISTORY of PRESENT ILLNESS HPI Adore Walter is a 88 y.o. female who presents for a wound consult. HPI: Ms. Walter is a 88 y.o. female with PMH of see below admitted with AMS. Patient unable to answer questions due to her mental status. Wound Care consulted for bilateral buttocks. PAST MEDICAL HISTORY Past Medical History: Diagnosis Date CHF (congestive heart failure) (HCC) COPD (chronic obstructive pulmonary disease) ([facility]) PAST SURGICAL HISTORY Past Surgical History: Procedure Laterality Date HIP SURGERY Right HYSTERECTOMY KNEE SURGERY Bilateral LEG MUSCLE SURGERY (HISTORICAL) Left FAMILY HISTORY No family history on file. SOCIAL HISTORY Social History Tobacco Use Smoking status: Former Packs/day: 0.50 Years: 35.00 Additional pack years: 0.00 Total pack years: 17.50 Types: Cigarettes Start date: 1956 Quit date: 1991 Years since quittin.3 Smokeless tobacco: Never Substance Use Topics Alcohol use: Yes Comment: obdulia bullard Drug use: Never ALLERGIES No Known Allergies MEDICATIONS No current facility-administered medications on file prior to encounter. Current Outpatient Medications on File Prior to Encounter Medication Sig Dispense Refill acetaminophen (Tylenol) 500 MG tablet Take 500 mg by mouth every 6 hours as needed. albuterol (2.5 MG/3ML) 0.083% nebulizer solution Take 2.5 mg by nebulization every 4 hours as needed for wheezing or shortness of breath. calcium carbonate (Tums) 500 MG chewable tablet Chew 500 mg daily. carvedilol (Coreg) 3.125 MG tablet Take 3.125 mg by mouth daily. Hold if SBP less than 100 or HR less than 55 [] cefTRIAXone (Rocephin) IVPB Infuse 2 g into a venous catheter Every 24 hours. cetirizine (ZyrTEC) 10 MG chewable tablet Chew 10 mg daily. cilostazol (Pletal) 100 MG tablet Take 100 mg by mouth 2 times daily. Docusate Sodium (DSS) 100 MG capsule Take 1 capsule by mouth 2 times daily. ergocalciferol (Vitamin D2) 1.25 MG (25115 UT) capsule ferrous sulfate 325 (65 Fe) MG tablet Take 325 mg by mouth daily (with breakfast). gabapentin (Neurontin) 100 MG capsule Take 100 mg by mouth 3 times daily. guaiFENesin (Mucinex) 600 MG 12 hr tablet Take 600 mg by mouth 2 times daily. Do not crush, chew, or split. ipratropium-albuterol (Duo-Neb) 0.5-2.5 mg/3 mL nebulizer solution Take 3 mL by nebulization in the morning and 3 mL at noon and 3 mL in the evening. Lidocaine 4 % patch Place 1 patch on the skin daily. lisinopril 5 MG tablet ondansetron ODT (Zofran-ODT) 4 MG disintegrating tablet Take 1 tablet by mouth every 8 hours as needed. pantoprazole (ProtoNix) 40 MG EC tablet Take 1 tablet (40 mg) by mouth every morning (before breakfast). Do not crush, chew, or split. polycarbophil (Fibercon) 625 MG tablet Take 625 mg by mouth daily. potassium chloride CR (Klor-Con) 10 MEQ ER tablet Take 40 mEq by mouth daily. Do not crush, chew, or split. simvastatin (Zocor) 10 MG tablet REVIEW OF SYSTEMS Pertinent items are noted in HPI. Objective: BP 106/60 (BP Location: Left arm, Patient Position: Lying) Pulse 85 Temp 36.3 C (97.3 F) (Temporal) Resp 18 Ht 1.575 m (5' 2.01") Wt 57.4 kg (126 lb 8.7 oz) SpO2 94% BMI 23.14 kg/m PHYSICAL EXAM General appearance: in no apparent distress, alert, cooperative, and disoriented Skin: warm and dry Pulmonary: Normal effort, no respiratory distress, no cyanosis Sacrum: 1.0cmx7.0cmxUTD with intact skin bridge. Slough present to base of wounds. Scant serosang drainage. Periwound fragile LABS CBC: Lab Results Component Value Date WBC 5.6 11/14/2023 HGB 11.4 (L) 11/14/2023 HGB 12.7 11/13/2023 HCT 35.7 11/14/2023 MCV 89.0 11/14/2023 PLT 371 11/14/2023 BMP: Lab Results Component Value Date NA 134 (L) 11/14/2023 K 4.1 11/14/2023 CL 108 (H) 11/14/2023 CO2 21 (L) 11/14/2023 BUN 9 11/14/2023 CREATININE 0.64 11/14/2023 PT/INR: No results found for: "PROTIME", "INR" Prealbumin: No results found for: PREALBUMIN Albumin:No components found for: LABALBU Sed Rate:No results found for: SEDRATE Micro: No components found for: BC Assessment/Plan: Sacrum: Pressure Injury (Unstageable) - Present on admission - Clean with soap and water, apply ET mix then leave INSURANCE OFFICE MANAGER TID and PRN - P 500 bed - Reposition q2hrs - Incontinent check q2hrs Nutritional support Wound Care to follow Recommend to follow up at [facility] wound care center after hospital discharge. Any questions or concerns please secure chat "ACH wound/ostomy". Thank you for the consult! I personally obtained the kang and critical portions of the history and physical exam. I reviewed the labs, imaging studies, and electronic medical record. I reviewed the chart documentation and discussed the patient with treatment team members. I have edited the note to reflect my clinical findings and my assessment and plan. Please note, the time of this note does not reflect the time I saw this patient today, but the time of this documentaton. Portions of this note including HPI, ROS, impression/plan, and examination may have been copied forward from admission to today as to provide important historical information essential in contributing to medical decision making. Documentation has been reviewed and edited as necessary to support clinical decision making for today's visit and to reflect my own independent evaluation of this patient. Decision making for today's visit and to reflect my own independent evaluation of this patient. [facility] 11-15-2023 Consult note Associated Order (s): IP WOUND CARE NURSE CONSULT TO EVAL; IP WOUND CARE NURSE CONSULT TO EVAL Images from the original note were not included. [facility] Wound Care CONSULT Note Adore Walter AGE: 88 y.o. GENDER: female : 1935 Subjective: HISTORY of PRESENT ILLNESS HPI Adore Walter is a 88 y.o. female who presents for a wound consult. HPI: Ms. Walter is a 88 y.o. female with PMH of see below admitted with AMS. Patient unable to answer questions due to her mental status. Wound Care consulted for bilateral buttocks. PAST MEDICAL HISTORY Past Medical History: Diagnosis Date CHF (congestive heart failure) (HCC) COPD (chronic obstructive pulmonary disease) (HCC) PAST SURGICAL HISTORY Past Surgical History: Procedure Laterality Date HIP SURGERY Right HYSTERECTOMY KNEE SURGERY Bilateral LEG MUSCLE SURGERY (HISTORICAL) Left FAMILY HISTORY No family history on file. SOCIAL HISTORY Social History Tobacco Use Smoking status: Former Packs/day: 0.50 Years: 35.00 Additional pack years: 0.00 Total pack years: 17.50 Types: Cigarettes Start date: 1956 Quit date: 1991 Years since quittin.3 Smokeless tobacco: Never Substance Use Topics Alcohol use: Yes Comment: obdulia bullard Drug use: Never ALLERGIES No Known Allergies MEDICATIONS No current facility-administered medications on file prior to encounter. Current Outpatient Medications on File Prior to Encounter Medication Sig Dispense Refill acetaminophen (Tylenol) 500 MG tablet Take 500 mg by mouth every 6 hours as needed. albuterol (2.5 MG/3ML) 0.083% nebulizer solution Take 2.5 mg by nebulization every 4 hours as needed for wheezing or shortness of breath. calcium carbonate (Tums) 500 MG chewable tablet Chew 500 mg daily. carvedilol (Coreg) 3.125 MG tablet Take 3.125 mg by mouth daily. Hold if SBP less than 100 or HR less than 55 [] cefTRIAXone (Rocephin) IVPB Infuse 2 g into a venous catheter Every 24 hours. cetirizine (ZyrTEC) 10 MG chewable tablet Chew 10 mg daily. cilostazol (Pletal) 100 MG tablet Take 100 mg by mouth 2 times daily. Docusate Sodium (DSS) 100 MG capsule Take 1 capsule by mouth 2 times daily. ergocalciferol (Vitamin D2) 1.25 MG (29116 UT) capsule ferrous sulfate 325 (65 Fe) MG tablet Take 325 mg by mouth daily (with breakfast). gabapentin (Neurontin) 100 MG capsule Take 100 mg by mouth 3 times daily. guaiFENesin (Mucinex) 600 MG 12 hr tablet Take 600 mg by mouth 2 times daily. Do not crush, chew, or split. ipratropium-albuterol (Duo-Neb) 0.5-2.5 mg/3 mL nebulizer solution Take 3 mL by nebulization in the morning and 3 mL at noon and 3 mL in the evening. Lidocaine 4 % patch Place 1 patch on the skin daily. lisinopril 5 MG tablet ondansetron ODT (Zofran-ODT) 4 MG disintegrating tablet Take 1 tablet by mouth every 8 hours as needed. pantoprazole (ProtoNix) 40 MG EC tablet Take 1 tablet (40 mg) by mouth every morning (before breakfast). Do not crush, chew, or split. polycarbophil (Fibercon) 625 MG tablet Take 625 mg by mouth daily. potassium chloride CR (Klor-Con) 10 MEQ ER tablet Take 40 mEq by mouth daily. Do not crush, chew, or split. simvastatin (Zocor) 10 MG tablet REVIEW OF SYSTEMS Pertinent items are noted in HPI. Objective: BP 106/60 (BP Location: Left arm, Patient Position: Lying) Pulse 85 Temp 36.3 C (97.3 F) (Temporal) Resp 18 Ht 1.575 m (5' 2.01") Wt 57.4 kg (126 lb 8.7 oz) SpO2 94% BMI 23.14 kg/m PHYSICAL EXAM General appearance: in no apparent distress, alert, cooperative, and disoriented Skin: warm and dry Pulmonary: Normal effort, no respiratory distress, no cyanosis Sacrum: 1.0cmx7.0cmxUTD with intact skin bridge. Slough present to base of wounds. Scant serosang drainage. Periwound fragile LABS CBC: Lab Results Component Value Date WBC 5.6 11/14/2023 HGB 11.4 (L) 11/14/2023 HGB 12.7 11/13/2023 HCT 35.7 11/14/2023 MCV 89.0 11/14/2023 PLT 371 11/14/2023 BMP: Lab Results Component Value Date NA 134 (L) 11/14/2023 K 4.1 11/14/2023 CL 108 (H) 11/14/2023 CO2 21 (L) 11/14/2023 BUN 9 11/14/2023 CREATININE 0.64 11/14/2023 PT/INR: No results found for: "PROTIME", "INR" Prealbumin: No results found for: PREALBUMIN Albumin:No components found for: LABALBU Sed Rate:No results found for: SEDRATE Micro: No components found for: BC Assessment/Plan: Sacrum: Pressure Injury (Unstageable) - Present on admission - Clean with soap and water, apply ET mix then leave INSURANCE OFFICE MANAGER TID and PRN - P 500 bed - Reposition q2hrs - Incontinent check q2hrs Nutritional support Wound Care to follow Recommend to follow up at [facility] wound care center after hospital discharge. Any questions or concerns please secure chat "ACH wound/ostomy". Thank you for the consult! I personally obtained the kang and critical portions of the history and physical exam. I reviewed the labs, imaging studies, and electronic medical record. I reviewed the chart documentation and discussed the patient with treatment team members. I have edited the note to reflect my clinical findings and my assessment and plan. Please note, the time of this note does not reflect the time I saw this patient today, but the time of this documentaton. Portions of this note including HPI, ROS, impression/plan, and examination may have been copied forward from admission to today as to provide important historical information essential in contributing to medical decision making. Documentation has been reviewed and edited as necessary to support clinical decision making for today's visit and to reflect my own independent evaluation of this patient. Decision making for today's visit and to reflect my own independent evaluation of this patient. Associated Order(s): IP CONSULT TO ENDOCRINOLOGY Department of Internal Medicine Division of Endocrinology, Diabetes, & Metabolism Endocrinology Note Patient Name: Adore aWlter : 1935 AGE: 88 y.o. Room/Bed: [facility] A Admission Date: 11/13/2023 Visit Date: 11/14/2023 Reason for Endocrine Consult: Abnormal TFTs, thyroid nodule Provider/Team Requesting Consult: Dr. Valverde PCP: Thais Talamantes Outpt Jail Guard: No ASSESSMENT: Incidental right thyroid nodule Thyrotoxicosis Acute encephalopathy, resolved Debility Osteoarthritis Osteoporosis Recent bacteremia COPD HF PLAN: Thyroid nodule -Patient has incidentally discovered right thyroid nodule -This was a 3.5 cm right hypoechoic thyroid nodule on CT -No prior imaging studies for comparison -Plan is to do additional imaging with thyroid ultrasound -she has no neck compressive symptoms -Counseled patient regarding the evaluation and management of thyroid nodule -If warranted, patient may require US-guided FNA biopsy although she is not amenable to surgery if needed Thyrotoxicosis -Patient has thyroid labs consistent with thyrotoxicosis suppressed TSH and elevated free T4 -She is not significantly hyperthyroid on exam but has episodes of tachycardia -Mental status change may also be contributed by her thyrotoxicosis -Patient is at risk for complications related to hypothyroidism given her advanced age; patient also has other comorbidities including osteoporosis -Unable to do a thyroid uptake and scan due to recent IV contrast exposure -Will check TRAb -will initiate low dose MMI 2.5 mg daily -Baseline LFTs normal -Will monitor thyroid levels ANTICIPATED ENDOCRINE HOME GOING RECOMMENDATIONS: Optimized for Discharge from Endocrine standpoint: No Home Going Endocrine Rx Recommendations-- As above Outpt Follow Up-- Endo SUBJECTIVE/HPI: CHIEF COMPLAINT: Chief Complaint Patient presents with Altered Mental Status Patient arrives to ED via EMS from SNF for altered mental status. Patient is A&Ox2 at time of triage, patient complains of pain from bedsores. No further information from SNF, unknown baseline Thyroid disorder: Thyroid nodule, thyrotoxicosis/hyperthyroidism Onset of thyroid disorder: 11/23 Home regimen: none Biotin use: none Patient resides at [facility] with her . She has significant debility. She is wheelchair-bound. Patient was admitted due to change in mental status. Denies syncope or weakness. Patient was recently treated for bacteremia. Completed IV antibiotics. Geriatrics following. MS has improved. She feels that she is back to her baseline. Patient was found to have an incidental right nodule on CTA on 10/23. CTA on 10/23/2023 showed a 3.5 cm hypodense nodule on the right lobe of the thyroid. No history of neck radiation. No neck compressive symptoms. Recent TFTs were abnormal. Latest Reference Range & Units 11/13/23 12:11 11/14/23 05:56 THYROID STIMULATING HORMONE 0.465 - 4.680 uIU/mL <0.015 (L) T4, FREE 0.78 - 2.19 ng/dL 2.57 (H) T3, FREE 2.77 - 5.27 pg/mL 4.49 Of note, TSH on 10/23 was also suppressed at 0.082. Patient had normal TSH on 10/21. No prior history of thyroid disease. No family history of thyroid disease or thyroid cancer. Patient denies any significant hyperthyroid symptoms. No palpitations, tremors, shakiness, anxiety, excessive sweating, or diarrhea. She does report 6 pound unintentional weight loss. She denies any nausea or vomiting. There is a history of heart failure in her chart. TTE on 10/24/2023 showed EF of 76%; has moderately dilated ascending aorta. No history of arrhythmia or CAD. She has known osteoporosis. She is unsure if she has been treatment although Fosamax rings a cruz. There is note of chronic vertebral compression fractures and femur fracture in the past. Last DEXA in 2014 showed severe osteoporosis. Glucose Date/Time Value Ref Range Status 10/23/2023 09:29 PM 86 70 - 100 mg/dL Final Glucose Blood, POC Date/Time Value Ref Range Status 10/03/2021 07:59 PM 161 (H) 70 - 100 mg/dL Final Comment: Test performed by glucose meter. Results may be 10%-15% lower than serum/plasma values. (CLIA ID [id number]) 10/03/2021 04:49 PM 191 (H) 70 - 100 mg/dL Final Comment: Test performed by glucose meter. Results may be 10%-15% lower than serum/plasma values. (CLIA ID [id number]) 10/03/2021 11:26 AM 144 (H) 70 - 100 mg/dL Final Comment: Test performed by glucose meter. Results may be 10%-15% lower than serum/plasma values. (CLIA ID [id number]) 10/02/2021 09:18 PM 106 (H) 70 - 100 mg/dL Final Comment: Test performed by glucose meter. Results may be 10%-15% lower than serum/plasma values. (CLIA ID [id number]) 10/02/2021 11:43 AM 138 (H) 70 - 100 mg/dL Final Comment: Test performed by glucose meter. Results may be 10%-15% lower than serum/plasma values. (CLIA ID [id number]) 10/02/2021 06:21 AM 122 (H) 70 - 100 mg/dL Final Comment: Test performed by glucose meter. Results may be 10%-15% lower than serum/plasma values. (CLIA ID [id number]) Review of Systems ROS negative except for those mentioned in HPI. OBJECTIVE: Vitals: 11/13/23 1552 11/13/23 1700 11/13/23 1956 11/14/23 0727 BP: 119/67 136/70 96/64 BP Location: Left arm Left arm Patient Position: Lying Lying Pulse: 98 103 95 Resp: 18 18 19 Temp: 36 C (96.8 F) 37.1 C (98.7 F) 36.2 C (97.2 F) TempSrc: Temporal Temporal Temporal SpO2: 94% 95% 93% Weight: 126 lb 8.7 oz (57.4 kg) Height: 5' 2.01" (1.575 m) Physical Exam Constitutional: General: She is not in acute distress. Appearance: She is normal weight. Eyes: General: No scleral icterus. Conjunctiva/sclera: Conjunctivae normal. Neck: Thyroid: No thyromegaly. Comments: Difficult to feel thyroid nodule Cardiovascular: Rate and Rhythm: Regular rhythm. Tachycardia present. Heart sounds: Normal heart sounds. Pulmonary: Effort: Pulmonary effort is normal. No respiratory distress. Breath sounds: Normal breath sounds. Abdominal: General: There is no distension. Palpations: Abdomen is soft. Tenderness: There is no abdominal tenderness. Musculoskeletal: General: Tenderness and deformity present. No swelling. Comments: Significant joint deformities in her hands and feet Lymphadenopathy: Cervical: No cervical adenopathy. Skin: General: Skin is warm and dry. Findings: Lesion (Multiple keratosis) present. Neurological: General: No focal deficit present. Mental Status: She is alert. Motor: Tremor present. Psychiatric: Mood and Affect: Mood normal. Behavior: Behavior normal. Behavior is cooperative. 24 hour intake/output: Intake/Output Summary (Last 24 hours) at 11/14/2023 1213 Last data filed at 11/14/2023 0500 Gross per 24 hour Intake -- Output 500 ml Net -500 ml Diet: Adult diet Regular Medications (as per EMR): HomeMeds: Current Outpatient Medications Medication Instructions acetaminophen (TYLENOL) 500 mg, Oral, Every 6 hours PRN albuterol 2.5 mg, Nebulization, Every 4 hours PRN calcium carbonate (TUMS) 500 mg, Oral, Daily carvedilol (COREG) 3.125 mg, Oral, Daily, Hold if SBP less than 100 or HR less than 55 cetirizine (ZYRTEC) 10 mg, Oral, Daily cilostazol (PLETAL) 100 mg, Oral, 2 times daily Docusate Sodium (DSS) 100 MG capsule 1 capsule, Oral, 2 times daily ergocalciferol (Vitamin D2) 1.25 MG (95924 UT) capsule No dose, route, or frequency recorded. ferrous sulfate 325 mg, Oral, Daily with breakfast gabapentin (NEURONTIN) 100 mg, Oral, 3 times daily guaiFENesin (MUCINEX) 600 mg, Oral, 2 times daily, Do not crush, chew, or split. ipratropium-albuterol (Duo-Neb) 0.5-2.5 mg/3 mL nebulizer solution 3 mL, Nebulization, 3 times daily Lidocaine 4 % patch 1 patch, TransDERmal, Daily lisinopril 5 MG tablet No dose, route, or frequency recorded. ondansetron ODT (Zofran-ODT) 4 MG disintegrating tablet 1 tablet, Oral, Every 8 hours PRN pantoprazole (PROTONIX) 40 mg, Oral, Daily before breakfast, Do not crush, chew, or split. polycarbophil (FIBERCON) 625 mg, Oral, Daily potassium chloride CR (Klor-Con) 10 MEQ ER tablet 40 mEq, Oral, Daily, Do not crush, chew, or split. simvastatin (Zocor) 10 MG tablet No dose, route, or frequency recorded. Scheduled Meds:atorvastatin, 10 mg, Oral, Nightly carvedilol, 3.125 mg, Oral, BID WC cetirizine, 5 mg, Oral, Daily cilostazol, 100 mg, Oral, BID enoxaparin, 40 mg, SubCUTAneous, Daily [START ON 11/15/2023] ergocalciferol, 1.25 mg, Oral, Weekly gabapentin, 100 mg, Oral, TID Lidocaine, 1 patch, TransDERmal, Daily Lidocaine, 1 patch, TransDERmal, Daily melatonin, 3 mg, Oral, Nightly miconazole, , Topical, BID polycarbophil, 625 mg, Oral, Daily potassium chloride CR, 40 mEq, Oral, Daily stomahesive in petrolatum, , Topical, BID Continuous Infusions:sodium chloride, 75 mL/hr, Last Rate: 75 mL/hr (11/14/23 0936) PRN Meds:PRN medications: acetaminophen, guaiFENesin, ipratropium-albuterol, ondansetron, polyethylene glycol (PEG) 3350 Diagnostic Workup: I reviewed pertinent Laboratory results, Radiographic results, and Other Clinical Notes at the time of today's encounter. Labs: No components found for: "LABA1C" No components found for: "EAG" Lab Results Component Value Date NA 134 (L) 11/14/2023 K 4.1 11/14/2023 CL 108 (H) 11/14/2023 CO2 21 (L) 11/14/2023 BUN 9 11/14/2023 CREATININE 0.64 11/14/2023 GLUCOSE 86 11/14/2023 CALCIUM 9.2 11/14/2023 Lab Results Component Value Date CHOL 152 09/11/2021 Lab Results Component Value Date TRIG 81 09/11/2021 Lab Results Component Value Date HDL 72 (H) 09/11/2021 No results found for: "LDLCALC" No results found for: "VLDL" Lab Results Component Value Date CHOLHDLRATIO 2 09/11/2021 No results found for: "DPOT45DLI" Lab Results Component Value Date TSH <0.015 (L) 11/13/2023 V1IVISS 137 04/10/2021 X1NDVFR 9.4 04/10/2021 Radiology reportsas per the Radiologist Radiology: ECG 12 lead Result Date: 11/14/2023 Sinus tachycardia Ventricular premature complex Aberrant conduction of SV complex(es) Low voltage, extremity leads Electronically Signed On 11-14-2023 00:08:39 EDT by Gurmeet Abreu MR brain wo contrast Result Date: 11/13/2023 Patient Name: ADORE WALTER : 1935 Exam Date/Time: 11/13/2023 21:03 Procedure: MR BRAIN WO CONTRAST Ordering Provider: LAWRENCE CURTIS Reason For Exam: Mental status change, unknown cause MRI OF THE BRAIN WITHOUT GADOLINIUM CLINICAL INDICATION: Mental status change, unknown cause TECHNIQUE: Routine MRI of the brain without gadolinium. COMPARISON: None FINDINGS: Moderate diffuse atrophy. No acute infarct seen on diffusion-weighted imaging. No hydrocephalus. No effacement of the basal cisterns. Fluid in the mastoid air cells bilaterally. There are patchy and confluent areas of T2 bright signal in the periventricular and subcortical white matter, which are nonspecific, but may relate to chronic small vessel ischemic changes. No pathologic extra-axial fluid collection identified. No hemorrhage, mass effect, or midline shift. Major intracranial flow voids are visualized. There is a possible anterior communicating artery aneurysm measuring about 5.2 x 4.8 mm. 1. Atrophy and likely chronic small vessel ischemic changes. No acute intracranial finding. 2. 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 Consider MRA for further evaluation if indicated. 3. Fluid in the mastoid air cells bilaterally may relate to mastoiditis. Report Dictated on Electronically Signed By: Stefan June MD Electronically Signed Date/Time: 11/13/2023 9:29 PM EDT XR abdomen 1 view Result Date: 11/13/2023 Patient Name: ADORE WALTER : 1935 Exam Date/Time: 11/13/2023 18:57 Procedure: XR ABDOMEN 1 VIEW Ordering Provider: LAWRENCE CURTIS Reason For Exam: METABOLIC ENCEPHALOPATHY SINGLE VIEW ABDOMEN CLINICAL INDICATION: METABOLIC ENCEPHALOPATHY TECHNIQUE: Single view abdomen x-ray COMPARISON: None FINDINGS: Nonspecific bowel gas pattern. No indirect evidence of free air. No suspicious calcifications. 1. Nonspecific bowel gas pattern. Report Dictated on Electronically Signed By: Stefan June MD Electronically Signed Date/Time: 11/13/2023 6:[address] head wo IV contrast Result Date: 11/13/2023 Patient Name: ADORE WALTER : 1935 Exam Date/Time: 11/13/2023 13:26 Procedure: CT HEAD WO IV CONTRAST Ordering Provider: SUMMERS QUENTIN Reason For Exam: Mental status change, unknown cause CT HEAD WITHOUT CONTRAST: CLINICAL INDICATION: Mental status change. COMPARISON: 10/23/2023. TECHNIQUE: [address] images through the brain. Sagittal and coronal reformatted images provided. Dose reduction was employed with automated exposure control. FINDINGS: Ventricles and extra-axial spaces: Mild prominence of cerebral ventricles, cisterns and sulci for age, compatible with mild cerebral atrophy. No extra-axial fluid collection. Cerebral and cerebellar parenchyma: Scattered nonspecific foci of low density in periventricular and subcortical white matter for age, compatible with chronic small vessel disease.. No mass, mass effect or acute cortical infarct. No intracranial hemorrhage or brainstem abnormality. Visualized paranasal sinuses: Left maxillary and bilateral sphenoid sinus mucosal thickening Mastoid air cells: Fluid is identified within bilateral mastoid air cells, unchanged from prior exam. Visualized orbits: Normal. Calvarium and skull base: Normal. Other: None. No acute intracranial process. Cerebral atrophy and chronic small vessel ischemic disease. Left maxillary and bilateral sphenoid sinus mucosal thickening. Chronic bilateral mastoiditis, unchanged. Report Dictated on Electronically Signed By: Jens Chavez DO Electronically Signed Date/Time: 11/13/2023 1:28 PM EDT XR chest 1 view Result Date: 11/13/2023 Patient Name: ADORE WALTER : 1935 [facility]#: [id number] Exam Date/Time: 11/13/2023 12:16 Procedure: XR CHEST 1 VIEW Ordering Provider: SUMMERS QUENTIN Reason For Exam: ALTERED MENTAL STATUS CLINICAL INDICATION: ALTERED MENTAL STATUS COMPARISON: 10/24/2023 TECHNIQUE: Single portable AP radiograph of the chest. FINDINGS: LUNGS/PLEURA:There is linear atelectasis overlying the left midlung zone. The lungs are otherwise clear. Deviation of trachea to the right is unchanged. No pneumothorax. MEDIASTINUM:Heart size and mediastinal contours are normal. VASCULARITY: Normal BONES:Degenerative changes of both glenohumeral joints. SUPPORT LINES: None OTHER: Linear atelectasis within the left lower lung zone along with bilateral chronic interstitial changes. No new areas of consolidation or effusion. Report Dictated on Electronically Signed By: Ricki Feliz MD Electronically Signed Date/Time: 11/13/2023 12:21 PM EDT History/Other: Past Medical History: Past Medical History: Diagnosis Date CHF (congestive heart failure) (HCC) COPD (chronic obstructive pulmonary disease) (HCC) Past Surgical History: Past Surgical History: Procedure Laterality Date HIP SURGERY Right HYSTERECTOMY KNEE SURGERY Bilateral LEG MUSCLE SURGERY (HISTORICAL) Left Allergy(ies): No Known Allergies Family History: No family history on file. Social History: Social History Tobacco Use Smoking status: Former Packs/day: 0.50 Years: 35.00 Additional pack years: 0.00 Total pack years: 17.50 Types: Cigarettes Start date: 1956 Quit date: 1991 Years since quittin.3 Smokeless tobacco: Never Substance Use Topics Alcohol use: Yes Comment: obdulia bullard Drug use: Never Portions of the information within this encounter were entered using an electronic dictation system. Best attempts were made to edit/proofread the information prior to note completion. Despite the review of information, some errors may remain. If there are questions related to the information contained within the note please contact the signing physician directly. I spent 75 minutes with the pt which involved coordination of care, medical evaluation, review of records, and/or counseling of the pt regarding his/her condition/disease state/prognosis on the date of this note. Associated Order(s): IP CONSULT TO GERIATRICS [facility] Geriatric Medicine Inpatient Consult Service Admission Date: 11/13/2023 Admission Status: OBSERVATION Chief Complaint: Chief Complaint Patient presents with Altered Mental Status Patient arrives to ED via EMS from SNF for altered mental status. Patient is A&Ox2 at time of triage, patient complains of pain from bedsores. No further information from SNF, unknown baseline Reason for Appointment Geriatrics consulted for intermittent confusion at facility" Assessment/Plan Principal Problem: Aphasia Altered mental status --Improving --Etiology likely in setting of hypotension --Encourage PO intake, time up in chair, family visits, supervised ambulation, and sleep hygiene --If agitated, assess for and consider treating for pain --QTc= 457 ms --If patient develops agitation/aggression/other signs of delirium and non-pharmacologic interventions are not improving patient's clinical status, would recommend beginning low-dose Seroquel (12.5mg PO BID prn agitation/hallucinations) --No antipsychotic unless patient is danger to self/others/treatment - Would avoid benzodiazepines in this older adult patient as this drug class increases risk of falls and confusion along with other potentially negative side effects which would outweigh any theoretical benefit. --Start scheduled melatonin at HS --Monitor for constipation/urinary retention - last BM unknown --Possible medication contributions: Gabapentin currently on hold. Recommend resuming if no medical contraindications to prevent withdrawal -- Check B12, ammonia, folate level pending --Medication Reconciliation: Patient home medications need resumed especially Gabapentin 100 mg TID. Have decreased coreg dose to home dose of 3.125 mg BID. Debility - Risk factors include: Increased age Poor mobility prior to admit - use of assistive devices Need assist with ADL or IADL before admit Prior history of falls or incontinence - Encourage adequate sleep, nourishment, pain control, provide schedules, ambulate as tolerate - Continue Physical Therapy/ Occupational Therapy with goal to improve function Pressure ulcer - Consult to wound care/skin team pending evaluation of patient Low TSH - Consider evaluation of free T3, free T4 Thank you for the consult to Geriatrics. Please await final addendum by attending Dr. Miranda Disclaimer: Parts of this note was dictated by speech recognition. Minor errors in supervisor beehive kiln may be present. Please call if questions. Subjective: HPI 88 y.o. year-old female presented from [facility] for altered mental status. -Vitals within normal limits aside from tachycardia of 108 that has improved -Labs within normal limits, troponin negative. -TSH 0.015 -EKG shows sinus tachycardia, ventricular premature complex, QTc 457 ms -Chest x-ray showed linear atelectasis within the left lower lung zone along with bilateral chronic interstitial changes. No new areas of consolidation or effusion. -CT head showed no acute intracranial process. Cerebral atrophy and chronic small vessel ischemic disease. Left maxillary and bilateral sphenoid sinus mucosal thickening. Chronic bilateral mastoiditis. PMHx: COPD, anemia, hypertension, hyperlipidemia Recent ED visit/Hospitalization: -The patient was recently admitted 10/23/2023-10/29/2023 for sepsis with shock, Streptococcus para sanguinous bacteremia, influenza A pneumonia, acute COPD exacerbation with hypoxic respiratory failure. At that time, patient presented with altered mental status and hypotension from SNF. The patient was admitted to the ICU for vasopressor support. The patient was discharged back to the group home facility. Conversation with caregiver: [facility] - Patient complained to coconut jelly roller that she was feeling dizzy. Reports that she was slurring her speech and using wrong words - She was found to have low blood pressure 90/64, MD advised - She is usually alert and oriented x 3 - She resides [facility], has been resident 2 years Conversation with patient: - Reports losing her memory briefly this morning - She reports feeling dizzy and that her BP was low - She reports living at "[facility]" otherwise is alert to person, place and situation - She reports having some pain in bottom where she has sores but does not need medication at this time - She is wheelchair bound needing neyda for transfers - She denies feeling down/depressed/anxious - She reports forgetting things but will later remember them - Reports son Popeye Walter as her POA. - Hoping for Discharge tomorrow Advance Care Planning Healthcare Power ofAttorney: Yes Financial Power of Firer Locomotive: Yes Living Will:Yes Code Status: Full Code No Known Allergies Current Facility-Administered Medications: acetaminophen (Tylenol) tablet 650 mg, 650 mg, Oral, q6h PRN, Travis Lawrence DO [START ON 11/14/2023] enoxaparin (Lovenox) syringe 40 mg, 40 mg, SubCUTAneous, Daily, Travis Lawrence DO [Held by provider] gabapentin (Neurontin) capsule 100 mg, 100 mg, Oral, TID, Travis Lawrence DO melatonin tablet 3 mg, 3 mg, Oral, Nightly, Travis Lawrence DO ondansetron (Zofran) injection 4 mg, 4 mg, IntraVENous, q6h PRN, Travis Lawrence DO polyethylene glycol (PEG) 3350 (Miralax) packet 17 g, 17 g, Oral, q12h PRN, Travis Lawrence DO Past Medical History: Diagnosis Date CHF (congestive heart failure) ([facility]) COPD (chronic obstructive pulmonary disease) ([facility]) Past Surgical History: Procedure Laterality Date HIP SURGERY Right HYSTERECTOMY KNEE SURGERY Bilateral LEG MUSCLE SURGERY (HISTORICAL) Left Social History Social History Tobacco Use Smoking status: Former Packs/day: 0.50 Years: 35.00 Additional pack years: 0.00 Total pack years: 17.50 Types: Cigarettes Start date: 1956 Quit date: 1991 Years since quittin.3 Smokeless tobacco: Never Substance Use Topics Alcohol use: Yes Comment: obdulia bullard Social History Social History Narrative Not on file Patient Currently Lives: LTC facility as noted above Family History No family history on file. No family status information on file. Review of Systems Respiratory: Negative for chest tightness and shortness of breath. Cardiovascular: Negative for chest pain and leg swelling. Gastrointestinal: Negative for abdominal pain. Musculoskeletal: Positive for gait problem. Skin: Positive for wound (bedsores). Neurological: Positive for weakness. Psychiatric/Behavioral: Negative for dysphoric mood. The patient is not nervous/anxious. Depression Screening: PHQ-2 Over the past 2 weeks, how often have you been botheredby any of the following problems? 1) Little interest or pleasure in doing things: No 2)Felling down, depressed, or hopeless: No Functional Status (I: Independent, A: Assisted, D: Dependent) ADLs I A D Notes Bathing [] [x] [] Dressing [] [x] [] Toileting [] [x] [] Transfers [] [] [x] Feeding [x] [] [] Ambulation [] [] [x] Assistive devices: wheelchair IADLs I A D { Telephone [] [x] [] Transportation [] [] [x] Driving safety concerns: Unknown Shopping [] [] [x] Meal prep [] [] [x] Housework [] [] [x] Medications [] [] [] Finances [] [] [x] Objective: BP 119/67 (BP Location: Left arm, Patient Position: Lying) Pulse 98 Temp 36 C (96.8 F) (Temporal) Resp 18 Ht 5' 2" (1.575 m) Wt 140 lb (63.5 kg) SpO2 94% BMI 25.61 kg/m No intake or output data in the 24 hours ending 11/13/23 1618 Wt Readings from Last 3 Encounters: 11/13/23 140 lb (63.5 kg) 10/29/23 133 lb 14.4 oz (60.7 kg) 09/16/21 127 lb (57.6 kg) Physical Exam Vitals reviewed. Eyes: General: No scleral icterus. Right eye: No discharge. Left eye: No discharge. Conjunctiva/sclera: Conjunctivae normal. Cardiovascular: Rate and Rhythm: Normal rate and regular rhythm. Pulses: Normal pulses. Heart sounds: No murmur heard. Pulmonary: Effort: Pulmonary effort is normal. No respiratory distress. Breath sounds: Normal breath sounds. Abdominal: General: Abdomen is flat. Bowel sounds are normal. There is no distension. Palpations: Abdomen is soft. Musculoskeletal: Right lower leg: No edema. Left lower leg: No edema. Skin: General: Skin is warm. Neurological: General: No focal deficit present. Mental Status: She is alert. Motor: Weakness (generalized in upper and lower extremities) present. Psychiatric: Mood and Affect: Mood normal. Behavior: Behavior normal. Labs and Imaging: Recent Results (from the past 24 hour(s)) ECG 12 lead Collection Time: 11/13/23 11:36 AM Result Value Ref Range Heart Rate 108 bpm QRSD Interval 83 ms QT Interval 341 ms QTC Interval 457 ms P Mcintyre 46 degrees QRS Mcintyre -30 degrees T Wave Mcintyre 50 degrees IN Interval 152 ms CBC auto differential Collection Time: 11/13/23 12:11 PM Result Value Ref Range Auto WBC 5.8 3.6 - 10.7 10*3/uL RBC 4.18 3.80 - 5.20 10*6/uL Hemoglobin 11.9 11.7 - 16.0 g/dL Hematocrit 37.5 35.0 - 47.0 % MCV 89.7 77.0 - 99.0 fL MCH 28.5 26.0 - 34.0 pg MCHC 31.7 30.5 - 36.0 % RDW 14.6 11.5 - 15.0 % Platelets 385 140 - 440 10*3/uL MPV 9.3 9.0 - 12.7 fL nRBC 0.0 0.0 - 2.0 /100 WBCs Neutrophils Relative 49.0 38.0 - 82.0 % Lymphocytes Relative 37.8 15.0 - 45.0 % Monocytes Relative 9.8 5.0 - 13.0 % Eosinophils Relative 2.2 0.0 - 6.0 % Basophils Relative 0.3 0.0 - 2.0 % Immature Grans % 0.9 0.0 - 2.0 % Neutrophils Absolute 2.9 1.8 - 7.5 10*3/uL Lymphocytes Absolute 2.2 1.0 - 4.3 10*3/uL Monocytes Absolute 0.6 0.0 - 0.9 10*3/uL Eosinophils Absolute 0.1 0.0 - 0.5 10*3/uL Basophils Absolute 0.0 0.0 - 0.2 10*3/uL Immature Grans Absolute 0.1 (H) <0.1 10*3/uL Comprehensive metabolic panel Collection Time: 11/13/23 12:11 PM Result Value Ref Range SODIUM 136 135 - 145 mmol/L POTASSIUM 4.5 3.5 - 5.1 mmol/L CHLORIDE 104 98 - 107 mmol/L CARBON DIOXIDE 25 22 - 30 mmol/L ANION GAP 6 3 - 13 mmol/L UREA NITROGEN 9 7 - 17 mg/dL CREATININE 0.73 0.52 - 1.04 mg/dL GLUCOSE 108 (H) 70 - 100 mg/dL CALCIUM 10.0 8.4 - 10.4 mg/dL AST (SGOT) 23 15 - 46 U/L ALT 11 0 - 34 U/L ALKALINE PHOSPHATASE 75 38 - 126 U/L ALBUMIN 3.5 3.5 - 5.0 g/dL BILIRUBIN, TOTAL 1.1 0.2 - 1.3 mg/dL TOTAL PROTEIN 6.5 6.3 - 8.2 g/dL eGFR 80.2 >60.0 mL/min/1.73m*2 Blood gas, venous (ACH and [facility]) Collection Time: 11/13/23 12:11 PM Result Value Ref Range pH, Venous 7.378 7.330 - 7.430 pCO2, Venous 43.2 40.0 - 55.0 mm Hg pO2, Venous 41.1 30.0 - 50.0 mm Hg HCO3, Venous 24.9 23.0 - 27.0 mmol/L O2 Sat, Venous 71.6 60.0 - 80.0 % Base Excess, Venous -0.4 -3.0 - 3.0 mmol/L Hgb, blood gas 12.7 Screen Only g/dl TCO2, Venous 26.2 24.0 - 28.0 mmol/L Source Of Oxygen Room Air Troponin - One Time order ONLY Collection Time: 11/13/23 12:11 PM Result Value Ref Range TROPONIN I <0.012 <0.034 ng/mL C-reactive protein Collection Time: 11/13/23 12:11 PM Result Value Ref Range C REACTIVE PROTEIN 7.4 <10.0 mg/L Lab Results Component Value Date TSH 0.082 (L) 10/23/2023 No components found for: "B12" No results found for: "VITD25" Reviewed: active problem list, medication list, notes from last encounter, notes from last several encounters, lab results, imaging Follow-up: will follow with you Communication of Consult Recommendations: Assessment and recommendations communicated to primary service Associated attestation - Jannette Miranda MD - 11/13/2023 5:47 PM EDT TEACHING ATTENDING NOTE I have talked with and examined the patient and discussed the case with the fellow. I agree with the above findings and recommendations. 88 y.o. year-old female presents with intermittent change of mental status. On exam, she has findings of alert, eating her dinner, pleasant, no acute distress. Impression/Recommendations: Agree with findings as outlined by fellow. We took to hold off the gabapentin to reduce risk of withdrawal. Coreg dose was adjusted to her home dose. Signed electronically by JANNETTE MIRANDA MD on 11/13/2023 at 5:46 PM documented in this encounter [facility] 11-14-2023 Note 1. Limited evaluation of the thyroid gland due to uncooperative patient. 2. Heterogeneous thyroid gland. 3. 3.1 cm right mid thyroid hypoechoic nodule (TIRAD 4-moderately suspicious). This nodule is amenable to fine-needle aspiration. 4. 0.4 cm left mid thyroid hypoechoic nodule (TIRAD 4-moderately suspicious). This nodule is less than 1 cm and does not require follow-up.. *TI-RADS (2017) Reference: Ralph Coyle. ACR Thyroid Imaging, Reporting and Data System (TI-RADS): White Paper of the ACR TI-RADS Committee. J [employer]. October 2016 Thyroid nodule details (add points for total score): Composition(points): 1 - mixed cystic and solid 2 - solid Echogenicity: 1 - hyperechoic or isoechoic 2 - hypoechoic 3 - very hypoechoic Shape: 3 - taller than wide Margin: 2 - lobulated or irregular 3 - extrathyroidal extension Echogenic foci: 1 - macrocalcifications 2 - rim calcification 3 - microcalcifications Risk for malignancy: TI-RADS 1: 0 points - (benign) <2% risk TI-RADS 2: 2 points - (not suspicious) <5% TI-RADS 3: 3 points - (mildly suspicious) <5% FNA when >/= 2.5cm Follow when >1.5cm at 1, 3 and 5 years TI-RADS 4: 4-6 points - (moderately suspicious) 5-20% FNA when >/= 1.5cm Follow when >1.0cm at 1, 2, 3 and 5 years TI-RADS 5: 7+ points - (highly suspicious) >20% FNA when >/= 1.0cm Follow when >0.5cm every year for up to 5 years Please note: There are other existing guidelines to classify thyroid nodules to determine need for FNA; and this decision will be deferred to the ordering physician. Note: "There are existing guidelines to classify the thyroid nodule(s) and determine need for FNA and this decision will be deferred to the ordering clinician". Report Dictated on Electronically Signed By: Jens Chavez DO Electronically Signed Date/Time: 11/14/2023 1:55 PM T [facility] 11-14-2023 Consult note Associated Order (s): IP CONSULT TO ENDOCRINOLOGY Department of Internal Medicine Division of Endocrinology, Diabetes, & Metabolism Endocrinology Note Patient Name: Adore Walter : 1935 AGE: 88 y.o. Room/Bed: [facility]/[address] Admission Date: 11/13/2023 Visit Date: 11/14/2023 Reason for Endocrine Consult: Abnormal TFTs, thyroid nodule Provider/Team Requesting Consult: Dr. Valverde PCP: Thais Talamantes Outpt Jail Guard: No ASSESSMENT: Incidental right thyroid nodule Thyrotoxicosis Acute encephalopathy, resolved Debility Osteoarthritis Osteoporosis Recent bacteremia COPD HF PLAN: Thyroid nodule -Patient has incidentally discovered right thyroid nodule -This was a 3.5 cm right hypoechoic thyroid nodule on CT -No prior imaging studies for comparison -Plan is to do additional imaging with thyroid ultrasound -she has no neck compressive symptoms -Counseled patient regarding the evaluation and management of thyroid nodule -If warranted, patient may require US-guided FNA biopsy although she is not amenable to surgery if needed Thyrotoxicosis -Patient has thyroid labs consistent with thyrotoxicosis suppressed TSH and elevated free T4 -She is not significantly hyperthyroid on exam but has episodes of tachycardia -Mental status change may also be contributed by her thyrotoxicosis -Patient is at risk for complications related to hypothyroidism given her advanced age; patient also has other comorbidities including osteoporosis -Unable to do a thyroid uptake and scan due to recent IV contrast exposure -Will check TRAb -will initiate low dose MMI 2.5 mg daily -Baseline LFTs normal -Will monitor thyroid levels ANTICIPATED ENDOCRINE HOME GOING RECOMMENDATIONS: Optimized for Discharge from Endocrine standpoint: No Home Going Endocrine Rx Recommendations-- As above Outpt Follow Up-- Endo SUBJECTIVE/HPI: CHIEF COMPLAINT: Chief Complaint Patient presents with Altered Mental Status Patient arrives to ED via EMS from SNF for altered mental status. Patient is A&Ox2 at time of triage, patient complains of pain from bedsores. No further information from SNF, unknown baseline Thyroid disorder: Thyroid nodule, thyrotoxicosis/hyperthyroidism Onset of thyroid disorder: 11/23 Home regimen: none Biotin use: none Patient resides at [facility] with her . She has significant debility. She is wheelchair-bound. Patient was admitted due to change in mental status. Denies syncope or weakness. Patient was recently treated for bacteremia. Completed IV antibiotics. Geriatrics following. MS has improved. She feels that she is back to her baseline. Patient was found to have an incidental right nodule on CTA on 10/23. CTA on 10/23/2023 showed a 3.5 cm hypodense nodule on the right lobe of the thyroid. No history of neck radiation. No neck compressive symptoms. Recent TFTs were abnormal. Latest Reference Range & Units 11/13/23 12:11 11/14/23 05:56 THYROID STIMULATING HORMONE 0.465 - 4.680 uIU/mL <0.015 (L) T4, FREE 0.78 - 2.19 ng/dL 2.57 (H) T3, FREE 2.77 - 5.27 pg/mL 4.49 Of note, TSH on 10/23 was also suppressed at 0.082. Patient had normal TSH on 10/21. No prior history of thyroid disease. No family history of thyroid disease or thyroid cancer. Patient denies any significant hyperthyroid symptoms. No palpitations, tremors, shakiness, anxiety, excessive sweating, or diarrhea. She does report 6 pound unintentional weight loss. She denies any nausea or vomiting. There is a history of heart failure in her chart. TTE on 10/24/2023 showed EF of 76%; has moderately dilated ascending aorta. No history of arrhythmia or CAD. She has known osteoporosis. She is unsure if she has been treatment although Fosamax rings a cruz. There is note of chronic vertebral compression fractures and femur fracture in the past. Last DEXA in 2014 showed severe osteoporosis. Glucose Date/Time Value Ref Range Status 10/23/2023 09:29 PM 86 70 - 100 mg/dL Final Glucose Blood, POC Date/Time Value Ref Range Status 10/03/2021 07:59 PM 161 (H) 70 - 100 mg/dL Final Comment: Test performed by glucose meter. Results may be 10%-15% lower than serum/plasma values. (CLIA ID [id number]) 10/03/2021 04:49 PM 191 (H) 70 - 100 mg/dL Final Comment: Test performed by glucose meter. Results may be 10%-15% lower than serum/plasma values. (CLIA ID [id number]) 10/03/2021 11:26 AM 144 (H) 70 - 100 mg/dL Final Comment: Test performed by glucose meter. Results may be 10%-15% lower than serum/plasma values. (CLIA ID [id number]) 10/02/2021 09:18 PM 106 (H) 70 - 100 mg/dL Final Comment: Test performed by glucose meter. Results may be 10%-15% lower than serum/plasma values. (CLIA ID [id number]) 10/02/2021 11:43 AM 138 (H) 70 - 100 mg/dL Final Comment: Test performed by glucose meter. Results may be 10%-15% lower than serum/plasma values. (CLIA ID [id number]) 10/02/2021 06:21 AM 122 (H) 70 - 100 mg/dL Final Comment: Test performed by glucose meter. Results may be 10%-15% lower than serum/plasma values. (CLIA ID [id number]) Review of Systems ROS negative except for those mentioned in HPI. OBJECTIVE: Vitals: 11/13/23 1552 11/13/23 1700 11/13/23 1956 11/14/23 0727 BP: 119/67 136/70 96/64 BP Location: Left arm Left arm Patient Position: Lying Lying Pulse: 98 103 95 Resp: 18 18 19 Temp: 36 C (96.8 F) 37.1 C (98.7 F) 36.2 C (97.2 F) TempSrc: Temporal Temporal Temporal SpO2: 94% 95% 93% Weight: 126 lb 8.7 oz (57.4 kg) Height: 5' 2.01" (1.575 m) Physical Exam Constitutional: General: She is not in acute distress. Appearance: She is normal weight. Eyes: General: No scleral icterus. Conjunctiva/sclera: Conjunctivae normal. Neck: Thyroid: No thyromegaly. Comments: Difficult to feel thyroid nodule Cardiovascular: Rate and Rhythm: Regular rhythm. Tachycardia present. Heart sounds: Normal heart sounds. Pulmonary: Effort: Pulmonary effort is normal. No respiratory distress. Breath sounds: Normal breath sounds. Abdominal: General: There is no distension. Palpations: Abdomen is soft. Tenderness: There is no abdominal tenderness. Musculoskeletal: General: Tenderness and deformity present. No swelling. Comments: Significant joint deformities in her hands and feet Lymphadenopathy: Cervical: No cervical adenopathy. Skin: General: Skin is warm and dry. Findings: Lesion (Multiple keratosis) present. Neurological: General: No focal deficit present. Mental Status: She is alert. Motor: Tremor present. Psychiatric: Mood and Affect: Mood normal. Behavior: Behavior normal. Behavior is cooperative. 24 hour intake/output: Intake/Output Summary (Last 24 hours) at 11/14/2023 1213 Last data filed at 11/14/2023 0500 Gross per 24 hour Intake -- Output 500 ml Net -500 ml Diet: Adult diet Regular Medications (as per EMR): HomeMeds: Current Outpatient Medications Medication Instructions acetaminophen (TYLENOL) 500 mg, Oral, Every 6 hours PRN albuterol 2.5 mg, Nebulization, Every 4 hours PRN calcium carbonate (TUMS) 500 mg, Oral, Daily carvedilol (COREG) 3.125 mg, Oral, Daily, Hold if SBP less than 100 or HR less than 55 cetirizine (ZYRTEC) 10 mg, Oral, Daily cilostazol (PLETAL) 100 mg, Oral, 2 times daily Docusate Sodium (DSS) 100 MG capsule 1 capsule, Oral, 2 times daily ergocalciferol (Vitamin D2) 1.25 MG (09180 UT) capsule No dose, route, or frequency recorded. ferrous sulfate 325 mg, Oral, Daily with breakfast gabapentin (NEURONTIN) 100 mg, Oral, 3 times daily guaiFENesin (MUCINEX) 600 mg, Oral, 2 times daily, Do not crush, chew, or split. ipratropium-albuterol (Duo-Neb) 0.5-2.5 mg/3 mL nebulizer solution 3 mL, Nebulization, 3 times daily Lidocaine 4 % patch 1 patch, TransDERmal, Daily lisinopril 5 MG tablet No dose, route, or frequency recorded. ondansetron ODT (Zofran-ODT) 4 MG disintegrating tablet 1 tablet, Oral, Every 8 hours PRN pantoprazole (PROTONIX) 40 mg, Oral, Daily before breakfast, Do not crush, chew, or split. polycarbophil (FIBERCON) 625 mg, Oral, Daily potassium chloride CR (Klor-Con) 10 MEQ ER tablet 40 mEq, Oral, Daily, Do not crush, chew, or split. simvastatin (Zocor) 10 MG tablet No dose, route, or frequency recorded. Scheduled Meds:atorvastatin, 10 mg, Oral, Nightly carvedilol, 3.125 mg, Oral, BID WC cetirizine, 5 mg, Oral, Daily cilostazol, 100 mg, Oral, BID enoxaparin, 40 mg, SubCUTAneous, Daily [START ON 11/15/2023] ergocalciferol, 1.25 mg, Oral, Weekly gabapentin, 100 mg, Oral, TID Lidocaine, 1 patch, TransDERmal, Daily Lidocaine, 1 patch, TransDERmal, Daily melatonin, 3 mg, Oral, Nightly miconazole, , Topical, BID polycarbophil, 625 mg, Oral, Daily potassium chloride CR, 40 mEq, Oral, Daily stomahesive in petrolatum, , Topical, BID Continuous Infusions:sodium chloride, 75 mL/hr, Last Rate: 75 mL/hr (11/14/23 0936) PRN Meds:PRN medications: acetaminophen, guaiFENesin, ipratropium-albuterol, ondansetron, polyethylene glycol (PEG) 3350 Diagnostic Workup: I reviewed pertinent Laboratory results, Radiographic results, and Other Clinical Notes at the time of today's encounter. Labs: No components found for: "LABA1C" No components found for: "EAG" Lab Results Component Value Date NA 134 (L) 11/14/2023 K 4.1 11/14/2023 CL 108 (H) 11/14/2023 CO2 21 (L) 11/14/2023 BUN 9 11/14/2023 CREATININE 0.64 11/14/2023 GLUCOSE 86 11/14/2023 CALCIUM 9.2 11/14/2023 Lab Results Component Value Date CHOL 152 09/11/2021 Lab Results Component Value Date TRIG 81 09/11/2021 Lab Results Component Value Date HDL 72 (H) 09/11/2021 No results found for: "LDLCALC" No results found for: "VLDL" Lab Results Component Value Date CHOLHDLRATIO 2 09/11/2021 No results found for: "JTLR27HFY" Lab Results Component Value Date TSH <0.015 (L) 11/13/2023 M5YEEKU 137 04/10/2021 S4OJQZD 9.4 04/10/2021 Radiology reportsas per the Radiologist Radiology: ECG 12 lead Result Date: 11/14/2023 Sinus tachycardia Ventricular premature complex Aberrant conduction of SV complex(es) Low voltage, extremity leads Electronically Signed On 11-14-2023 00:08:39 EDT by Gurmeet Abreu MR brain wo contrast Result Date: 11/13/2023 Patient Name: ADORE WALTER : 1935 Exam Date/Time: 11/13/2023 21:03 Procedure: MR BRAIN WO CONTRAST Ordering Provider: LAWRENCE CURTIS Reason For Exam: Mental status change, unknown cause MRI OF THE BRAIN WITHOUT GADOLINIUM CLINICAL INDICATION: Mental status change, unknown cause TECHNIQUE: Routine MRI of the brain without gadolinium. COMPARISON: None FINDINGS: Moderate diffuse atrophy. No acute infarct seen on diffusion-weighted imaging. No hydrocephalus. No effacement of the basal cisterns. Fluid in the mastoid air cells bilaterally. There are patchy and confluent areas of T2 bright signal in the periventricular and subcortical white matter, which are nonspecific, but may relate to chronic small vessel ischemic changes. No pathologic extra-axial fluid collection identified. No hemorrhage, mass effect, or midline shift. Major intracranial flow voids are visualized. There is a possible anterior communicating artery aneurysm measuring about 5.2 x 4.8 mm. 1. Atrophy and likely chronic small vessel ischemic changes. No acute intracranial finding. 2. 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 Consider MRA for further evaluation if indicated. 3. Fluid in the mastoid air cells bilaterally may relate to mastoiditis. Report Dictated on Electronically Signed By: Stefan June MD Electronically Signed Date/Time: 11/13/2023 9:29 PM EDT XR abdomen 1 view Result Date: 11/13/2023 Patient Name: ADORE WALTER : 1935 Exam Date/Time: 11/13/2023 18:57 Procedure: XR ABDOMEN 1 VIEW Ordering Provider: LAWRENCE CURTIS Reason For Exam: METABOLIC ENCEPHALOPATHY SINGLE VIEW ABDOMEN CLINICAL INDICATION: METABOLIC ENCEPHALOPATHY TECHNIQUE: Single view abdomen x-ray COMPARISON: None FINDINGS: Nonspecific bowel gas pattern. No indirect evidence of free air. No suspicious calcifications. 1. Nonspecific bowel gas pattern. Report Dictated on Electronically Signed By: Stefan June MD Electronically Signed Date/Time: 11/13/2023 6:[address] head wo IV contrast Result Date: 11/13/2023 Patient Name: ADORE WALTER : 1935 Exam Date/Time: 11/13/2023 13:26 Procedure: CT HEAD WO IV CONTRAST Ordering Provider: SUMMERS QUENTIN Reason For Exam: Mental status change, unknown cause CT HEAD WITHOUT CONTRAST: CLINICAL INDICATION: Mental status change. COMPARISON: 10/23/2023. TECHNIQUE: [address] images through the brain. Sagittal and coronal reformatted images provided. Dose reduction was employed with automated exposure control. FINDINGS: Ventricles and extra-axial spaces: Mild prominence of cerebral ventricles, cisterns and sulci for age, compatible with mild cerebral atrophy. No extra-axial fluid collection. Cerebral and cerebellar parenchyma: Scattered nonspecific foci of low density in periventricular and subcortical white matter for age, compatible with chronic small vessel disease.. No mass, mass effect or acute cortical infarct. No intracranial hemorrhage or brainstem abnormality. Visualized paranasal sinuses: Left maxillary and bilateral sphenoid sinus mucosal thickening Mastoid air cells: Fluid is identified within bilateral mastoid air cells, unchanged from prior exam. Visualized orbits: Normal. Calvarium and skull base: Normal. Other: None. No acute intracranial process. Cerebral atrophy and chronic small vessel ischemic disease. Left maxillary and bilateral sphenoid sinus mucosal thickening. Chronic bilateral mastoiditis, unchanged. Report Dictated on Electronically Signed By: Jens Chavez DO Electronically Signed Date/Time: 11/13/2023 1:28 PM EDT XR chest 1 view Result Date: 11/13/2023 Patient Name: ADORE WALTER : 1935 [facility]#: [id number] Exam Date/Time: 11/13/2023 12:16 Procedure: XR CHEST 1 VIEW Ordering Provider: SUMMERS QUENTIN Reason For Exam: ALTERED MENTAL STATUS CLINICAL INDICATION: ALTERED MENTAL STATUS COMPARISON: 10/24/2023 TECHNIQUE: Single portable AP radiograph of the chest. FINDINGS: LUNGS/PLEURA:There is linear atelectasis overlying the left midlung zone. The lungs are otherwise clear. Deviation of trachea to the right is unchanged. No pneumothorax. MEDIASTINUM:Heart size and mediastinal contours are normal. VASCULARITY: Normal BONES:Degenerative changes of both glenohumeral joints. SUPPORT LINES: None OTHER: Linear atelectasis within the left lower lung zone along with bilateral chronic interstitial changes. No new areas of consolidation or effusion. Report Dictated on Electronically Signed By: Ricki Feliz MD Electronically Signed Date/Time: 11/13/2023 12:21 PM EDT History/Other: Past Medical History: Past Medical History: Diagnosis Date CHF (congestive heart failure) (HCC) COPD (chronic obstructive pulmonary disease) (HCC) Past Surgical History: Past Surgical History: Procedure Laterality Date HIP SURGERY Right HYSTERECTOMY KNEE SURGERY Bilateral LEG MUSCLE SURGERY (HISTORICAL) Left Allergy(ies): No Known Allergies Family History: No family history on file. Social History: Social History Tobacco Use Smoking status: Former Packs/day: 0.50 Years: 35.00 Additional pack years: 0.00 Total pack years: 17.50 Types: Cigarettes Start date: 1956 Quit date: 1991 Years since quittin.3 Smokeless tobacco: Never Substance Use Topics Alcohol use: Yes Comment: obdulia bullard Drug use: Never Portions of the information within this encounter were entered using an electronic dictation system. Best attempts were made to edit/proofread the information prior to note completion. Despite the review of information, some errors may remain. If there are questions related to the information contained within the note please contact the signing physician directly. I spent 75 minutes with the pt which involved coordination of care, medical evaluation, review of records, and/or counseling of the pt regarding his/her condition/disease state/prognosis on the date of this note. [facility] 11-14-2023 Note Formatting of this n ote might be different from the original. Care Managment Initial Assessment Date: 11/14/2023 Patient Name: Adore Walter : 1935 Patient Information Source of Information: Patient Cognition/Language: WFL - Within Functional Limits Permission given to speak with patient inside sales account representative/caregiver as indicated: Yes Confirmation of Payer with patient/family: Yes Payer Name: [employer]/ Medicare [employer] and [employer] Medicaid Secondary Fords: No Confirmation of Primary Care Physician: Confirmed PCP Name: Thais Talamantes Seen in last 2 years?: Yes Primary Caregiver: Other (Comment) (Pt resides at [facility]) If assistance needed, confirmed caregiver ready, willing and able to care for patient at discharge: Confirmed with: Living Arrangements Current Residence: Number of Floors Number of Entry Steps: Bed/Bath Levels: Facility: Facility Name: [facility] Plan to Return: Yes Lives with: Spouse/significant other (Pt reports she stays in the same room with her at [facility]) Support Systems: Spouse/significant other, Children, Comments (Other) (Facility Staff) Activities of Daily Living Ambulation: Total Care (Pt reports she does not ambulate that her Right knee is broken and twisted. Pt reports she uses a wheel chair.) Bathing/Dressing: Assistance Elimination/Continence/Toileting: Assistance Feeding: Independent Who Assists with Activities of Daily Living: Facility staff at [facility] Instrumental Activities of Daily Living Prescription Coverage: Yes Pharmacy Used: Facility pharmacy Medication Management: Transportation/Shopping: Assistance Provider Transportation/Shopping Assistance Provider Name: [facility] or [facility] Transportation Mode: Wheelchair van, Senior/disability transport service, Car Needs Assistance with Transportation at Discharge: Yes Meal Preparation: Assistance Provider Meal Prep Assistance Provider Name: [facility] Laundry/Cleaning: Assistance Provider Laundry/Cleaning Assistance Provider Name: Facility Finances/Bill Paying: Assistance Provider Finances/Bill Payer Assistance Provider Name: [place] Communication: Independent Types of Care Services/Equipment Utilized Care Services: (n/a) Dialysis Type: NA Durable Medical Equipment: Wheelchair (standard or power) Patient's Goal/Discharge Plan Patient expects to be discharged to: Return to [facility] Discharge Planning Actions: Continue to follow Patient's Choice Rights and [employer] and Collaborative Relationships Disclosed as Indicated for Post-Acute Care: NA Interdisciplinary Team Engagement: Social Work Referral for: Transportation Assistance Additional Information: Chart reviewed. Pt here with c/o an episode of confusion/ aphasia. Geriatrics consulted. Met with pt at bedside (no family present at this time), introduced self and explained TCC role. Pt reports she lives at [facility] with her who she shares a room with. Additional information above obtained/ confirmed at this time. Pt reports she plans to return to [facility] upon dc and will need transportation set up to return upon dc. Return referral placed to [facility] in [place]- await facility response. TCC will continue to follow for add'l needs for dc. Katrina Scherer RN [facility] 11-14-2023 Note Formatting of this n ote might be different from the original. Care Managment Initial Assessment Date: 11/14/2023 Patient Name: Adore Walter : 1935 Patient Information Source of Information: Patient Cognition/Language: WFL - Within Functional Limits Permission given to speak with patient inside sales account representative/caregiver as indicated: Yes Confirmation of Payer with patient/family: Yes Payer Name: [employer]/ Medicare [employer] and [employer] Medicaid Secondary Fords: No Confirmation of Primary Care Physician: Confirmed PCP Name: Thais Talamantes Seen in last 2 years?: Yes Primary Caregiver: Other (Comment) (Pt resides at [facility]) If assistance needed, confirmed caregiver ready, willing and able to care for patient at discharge: Confirmed with: Living Arrangements Current Residence: Number of Floors Number of Entry Steps: Bed/Bath Levels: Facility: Facility Name: [facility] Plan to Return: Yes Lives with: Spouse/significant other (Pt reports she stays in the same room with her at [facility]) Support Systems: Spouse/significant other, Children, Comments (Other) (Facility Staff) Activities of Daily Living Ambulation: Total Care (Pt reports she does not ambulate that her Right knee is broken and twisted. Pt reports she uses a wheel chair.) Bathing/Dressing: Assistance Elimination/Continence/Toileting: Assistance Feeding: Independent Who Assists with Activities of Daily Living: Facility staff at [facility] Instrumental Activities of Daily Living Prescription Coverage: Yes Pharmacy Used: Facility pharmacy Medication Management: Transportation/Shopping: Assistance Provider Transportation/Shopping Assistance Provider Name: [facility] or [facility] Transportation Mode: Wheelchair van, Senior/disability transport service, Car Needs Assistance with Transportation at Discharge: Yes Meal Preparation: Assistance Provider Meal Prep Assistance Provider Name: [facility] Laundry/Cleaning: Assistance Provider Laundry/Cleaning Assistance Provider Name: [facility] Finances/Bill Paying: Assistance Provider Finances/Bill Payer Assistance Provider Name: [facility] Communication: Independent Types of Care Services/Equipment Utilized Care Services: (n/a) Dialysis Type: NA Durable Medical Equipment: Wheelchair (standard or power) Patient's Goal/Discharge Plan Patient expects to be discharged to: Return to [facility] Discharge Planning Actions: Continue to follow Patient's Choice Rights and [employer] and Collaborative Relationships Disclosed as Indicated for Post-Acute Care: NA Interdisciplinary Team Engagement: Social Work Referral for: Transportation Assistance Additional Information: Chart reviewed. Pt here with c/o an episode of confusion/ aphasia. Geriatrics consulted. Met with pt at bedside (no family present at this time), introduced self and explained TCC role. Pt reports she lives at [facility] with her who she shares a room with. Additional information above obtained/ confirmed at this time. Pt reports she plans to return to [facility] upon dc and will need transportation set up to return upon dc. Return referral placed to [facility] in [place]- await facility response. TCC will continue to follow for add'l needs for dc. Katrina Scherer RN [facility] 11-14-2023 Hospital Discharge instructions Genia Pierre RN - 11/14/2023 11:05 AM EDT Continuity of Care Form Patient Name: Adore Walter : 1935 Admit date: 11/13/2023 Discharge date: 11/15/23 Code Status Order: Full Code Advance Directives: N Admitting Physician: Travis Lawrence DO PCP: Thais Talamantes Discharging Nurse: jena jay Discharging Hospital Unit/Room#: W6-626/W6-626 A Discharging Unit Emergency Contact: Extended Emergency Contact Information Primary Emergency Contact: Ketan Walter Mobile Relation: Spouse Secondary Emergency Contact: Popeye Walter Relation: Child Past Surgical History: Past Surgical History: Procedure Laterality Date HIP SURGERY Right HYSTERECTOMY KNEE SURGERY Bilateral LEG MUSCLE SURGERY (HISTORICAL) Left Immunization History: Immunization History Administered Date(s) Administered Moderna SARS-CoV-2 Vaccination 09/05/2020, 10/03/2020 Pneumococcal Polysaccharide PPSV23 09/29/2016 Active Problems: Medical Problems Problem List * (Principal) Aphasia NSTEMI (non-ST elevated myocardial infarction) (HCC) Essential hypertension Overview Signed 05/14/2022 12:27 PM by Interface, Incoming Problems- [facility] Conversion Will add Coreg 6.5 mg b.i.d. Patient will check blood pressure and send in the readings LV dysfunction Overview Signed 05/14/2022 12:27 PM by Interface, Incoming Problems- [facility] Conversion Coreg 6.25 mg b.i.d. Ectopic cardiac beats Overview Signed 05/14/2022 12:27 PM by Interface, Incoming Problems- [facility] Conversion Review the echocardiogram that was done. Await results of the Holter monitor. 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 Presence of retained hardware Isolation/Infection: No active isolations No active infections Nurse Assessment: Last Vital Signs: BP 96/64 Pulse 95 Temp 36.2 C (97.2 F) (Temporal) Resp 19 Ht 1.575 m (5' 2.01") Wt 57.4 kg (126 lb 8.7 oz) SpO2 93% BMI 23.14 kg/m Last documented pain score (0-10 scale): Last Weight: Wt Readings from Last 1 Encounters: 11/13/23 57.4 kg (126 lb 8.7 oz) Mental Status: JENNY Patient Mental Status: oriented IV Access: JENNY IV Access: None Nursing Mobility/ADLs: Walking Total assistance Transfer Total assistance Bathing Total assistance Dressing Total assistance Toileting Total assistance Feeding Total assistance Financial Internship Total assistance Med Delivery yes Wound Care Documentation and Therapy: Wound/Incision 10/27/23 Pressure Injury Buttock (Active) Number of days: 17 Wound/Incision 11/13/23 Pressure Injury Buttock Right (Active) Site Assessment Unable to assess 11/13/23 2100 Faith-Wound Assessment Red 11/13/23 1702 Wound Length (cm) 2 cm 11/13/23 1702 Wound Width (cm) 1.5 cm 11/13/23 1702 Wound Surface Area (cm^2) 3 cm^2 11/13/23 1702 Odor None 11/13/23 1702 Drainage Amount None 11/13/23 1702 Treatments Cleansed;Site care;Moisture barrier ointment 11/13/23 1702 Primary Dressing Foam 11/13/23 2100 Dressing Status New dressing 11/13/23 1702 Number of days: 0 Wound/Incision 11/13/23 Pressure Injury Buttock Left (Active) Site Assessment Unable to assess 11/13/23 2100 Faith-Wound Assessment Red 11/13/23 1702 Wound Length (cm) 1 cm 11/13/23 1702 Wound Width (cm) 1 cm 11/13/23 1702 Wound Surface Area (cm^2) 1 cm^2 11/13/23 1702 Odor None 11/13/23 1702 Drainage Amount None 11/13/23 1702 Treatments Cleansed;Site care;Moisture barrier ointment 11/13/23 1702 Primary Dressing Foam 11/13/23 2100 Dressing Status New dressing 11/13/23 1702 Number of days: 0 Elimination: Continence: Bowel: no Bladder: no Urinary Catheter: None Colostomy/Ileostomy/Ileal Conduit: None Date of Last BM: 11/15/23 Intake/Output Summary (Last 24 hours) at 11/14/2023 1103 Last data filed at 11/14/2023 0500 Gross per 24 hour Intake -- Output 500 ml Net -500 ml I/O last 3 completed shifts: In: - (0 mL/kg) Out: 500 (8.7 mL/kg) [Urine:500 (0.2 mL/kg/hr)] Weight: 57.4 kg Safety Concerns: at risk for falls Impairments/Disabilities: none Nutrition Therapy: Current Nutrition Therapy: Oral diet: general Routes of Feeding: oral Liquids: no restrictions Daily Fluid Restriction: no Last Modified Barium Swallow with Video (Video Swallowing Test): not done Treatments at the Time of Hospital Discharge: Respiratory Treatments: none Oxygen Therapy: is not on home oxygen therapy. Ventilator: No ventilator support Rehab Therapies: PT/OT Weight Bearing Status/Restrictions: no restriction Other Medical Equipment (for information only, NOT a DME order): none Other Treatments: none Patient's personal belongings (please select all that are sent with patient): none RN SIGNATURE: MANAGEMENT/SOCIAL WORK SECTION Inpatient Status Date: Readmission Risk Assessment Score: @READMISSIONRISKDETAILS@ Discharging to Facility/ Agency Name: [facility] Address: [address] [place] [address] Fax: Dialysis Facility (if applicable) Name: Address: Dialysis Schedule: Phone: Fax: Furnace Installer/Chuck Wagon Driver signature: ICIAN SECTION Prognosis: good Condition at Discharge: stable Rehab Potential (if transferring to Rehab): good Recommended Labs or Other Treatments After Discharge: bmp, cbc Physician Certification: I certify the above information and transfer of Adore Walter is necessary for the continuing treatment of the diagnosis listed and that she requires group home facility for less than 30 days. Update Admission H&P: No change in H&P PHYSICIAN SIGNATURE: documented in this encounter [facility] 11-13-2023 Plan of care note Problem: Knowledge Deficit Goal: Patient/family/caregiver demonstrates understanding of disease process, treatment plan, medications, and discharge instructions Outcome: Progressing Problem: Potential for Compromised Skin Integrity Goal: Skin Integrity is Maintained or Improved Outcome: Progressing Goal: Nutritional status is improving Outcome: Progressing Problem: Urinary Incontinence Goal: Perineal skin integrity is maintained or improved Outcome: Progressing [facility] 11-13-2023 Consult note Associated Order (s): IP CONSULT TO GERIATRICS [facility] Geriatric Medicine Inpatient Consult Service Admission Date: 11/13/2023 Admission Status: OBSERVATION Chief Complaint: Chief Complaint Patient presents with Altered Mental Status Patient arrives to ED via EMS from SNF for altered mental status. Patient is A&Ox2 at time of triage, patient complains of pain from bedsores. No further information from SNF, unknown baseline Reason for Appointment Geriatrics consulted for intermittent confusion at facility" Assessment/Plan Principal Problem: Aphasia Altered mental status --Improving --Etiology likely in setting of hypotension --Encourage PO intake, time up in chair, family visits, supervised ambulation, and sleep hygiene --If agitated, assess for and consider treating for pain --QTc= 457 ms --If patient develops agitation/aggression/other signs of delirium and non-pharmacologic interventions are not improving patient's clinical status, would recommend beginning low-dose Seroquel (12.5mg PO BID prn agitation/hallucinations) --No antipsychotic unless patient is danger to self/others/treatment - Would avoid benzodiazepines in this older adult patient as this drug class increases risk of falls and confusion along with other potentially negative side effects which would outweigh any theoretical benefit. --Start scheduled melatonin at HS --Monitor for constipation/urinary retention - last BM unknown --Possible medication contributions: Gabapentin currently on hold. Recommend resuming if no medical contraindications to prevent withdrawal -- Check B12, ammonia, folate level pending --Medication Reconciliation: Patient home medications need resumed especially Gabapentin 100 mg TID. Have decreased coreg dose to home dose of 3.125 mg BID. Debility - Risk factors include: Increased age Poor mobility prior to admit - use of assistive devices Need assist with ADL or IADL before admit Prior history of falls or incontinence - Encourage adequate sleep, nourishment, pain control, provide schedules, ambulate as tolerate - Continue Physical Therapy/ Occupational Therapy with goal to improve function Pressure ulcer - Consult to wound care/skin team pending evaluation of patient Low TSH - Consider evaluation of free T3, free T4 Thank you for the consult to Geriatrics. Please await final addendum by attending Dr. Miranda Disclaimer: Parts of this note was dictated by speech recognition. Minor errors in supervisor beehive kiln may be present. Please call if questions. Subjective: HPI 88 y.o. year-old female presented from [facility] for altered mental status. -Vitals within normal limits aside from tachycardia of 108 that has improved -Labs within normal limits, troponin negative. -TSH 0.015 -EKG shows sinus tachycardia, ventricular premature complex, QTc 457 ms -Chest x-ray showed linear atelectasis within the left lower lung zone along with bilateral chronic interstitial changes. No new areas of consolidation or effusion. -CT head showed no acute intracranial process. Cerebral atrophy and chronic small vessel ischemic disease. Left maxillary and bilateral sphenoid sinus mucosal thickening. Chronic bilateral mastoiditis. PMHx: COPD, anemia, hypertension, hyperlipidemia Recent ED visit/Hospitalization: -The patient was recently admitted 10/23/2023-10/29/2023 for sepsis with shock, Streptococcus para sanguinous bacteremia, influenza A pneumonia, acute COPD exacerbation with hypoxic respiratory failure. At that time, patient presented with altered mental status and hypotension from SNF. The patient was admitted to the ICU for vasopressor support. The patient was discharged back to the group home facility. Conversation with caregiver: [facility] - Patient complained to coconut jelly roller that she was feeling dizzy. Reports that she was slurring her speech and using wrong words - She was found to have low blood pressure 90/64, MD advised - She is usually alert and oriented x 3 - She resides [facility], has been resident 2 years Conversation with patient: - Reports losing her memory briefly this morning - She reports feeling dizzy and that her BP was low - She reports living at "[facility]" otherwise is alert to person, place and situation - She reports having some pain in bottom where she has sores but does not need medication at this time - She is wheelchair bound needing neyda for transfers - She denies feeling down/depressed/anxious - She reports forgetting things but will later remember them - Reports son Popeye Walter as her POA. - Hoping for Discharge tomorrow Advance Care Planning Healthcare Power ofAttorney: Yes Financial Power of Firer Locomotive: Yes Living Will:Yes Code Status: Full Code No Known Allergies Current Facility-Administered Medications: acetaminophen (Tylenol) tablet 650 mg, 650 mg, Oral, q6h PRN, Travis Lawrence DO [START ON 11/14/2023] enoxaparin (Lovenox) syringe 40 mg, 40 mg, SubCUTAneous, Daily, Travis Lawrence DO [Held by provider] gabapentin (Neurontin) capsule 100 mg, 100 mg, Oral, TID, Travis Lawrence DO melatonin tablet 3 mg, 3 mg, Oral, Nightly, Travis Lawrence DO ondansetron (Zofran) injection 4 mg, 4 mg, IntraVENous, q6h PRN, Travis Lawrence DO polyethylene glycol (PEG) 3350 (Miralax) packet 17 g, 17 g, Oral, q12h PRN, Travis Lawrence DO Past Medical History: Diagnosis Date CHF (congestive heart failure) ([facility]) COPD (chronic obstructive pulmonary disease) ([facility]) Past Surgical History: Procedure Laterality Date HIP SURGERY Right HYSTERECTOMY KNEE SURGERY Bilateral LEG MUSCLE SURGERY (HISTORICAL) Left Social History Social History Tobacco Use Smoking status: Former Packs/day: 0.50 Years: 35.00 Additional pack years: 0.00 Total pack years: 17.50 Types: Cigarettes Start date: 1956 Quit date: 1991 Years since quittin.3 Smokeless tobacco: Never Substance Use Topics Alcohol use: Yes Comment: obdulia bullard Social History Social History Narrative Not on file Patient Currently Lives: [facility] facility as noted above Family History No family history on file. No family status information on file. Review of Systems Respiratory: Negative for chest tightness and shortness of breath. Cardiovascular: Negative for chest pain and leg swelling. Gastrointestinal: Negative for abdominal pain. Musculoskeletal: Positive for gait problem. Skin: Positive for wound (bedsores). Neurological: Positive for weakness. Psychiatric/Behavioral: Negative for dysphoric mood. The patient is not nervous/anxious. Depression Screening: PHQ-2 Over the past 2 weeks, how often have you been botheredby any of the following problems? 1) Little interest or pleasure in doing things: No 2)Felling down, depressed, or hopeless: No Functional Status (I: Independent, A: Assisted, D: Dependent) ADLs I A D Notes Bathing [] [x] [] Dressing [] [x] [] Toileting [] [x] [] Transfers [] [] [x] Feeding [x] [] [] Ambulation [] [] [x] Assistive devices: wheelchair IADLs I A D { Telephone [] [x] [] Transportation [] [] [x] Driving safety concerns: Unknown Shopping [] [] [x] Meal prep [] [] [x] Housework [] [] [x] Medications [] [] [] Finances [] [] [x] Objective: BP 119/67 (BP Location: Left arm, Patient Position: Lying) Pulse 98 Temp 36 C (96.8 F) (Temporal) Resp 18 Ht 5' 2" (1.575 m) Wt 140 lb (63.5 kg) SpO2 94% BMI 25.61 kg/m No intake or output data in the 24 hours ending 11/13/23 1618 Wt Readings from Last 3 Encounters: 11/13/23 140 lb (63.5 kg) 10/29/23 133 lb 14.4 oz (60.7 kg) 09/16/21 127 lb (57.6 kg) Physical Exam Vitals reviewed. Eyes: General: No scleral icterus. Right eye: No discharge. Left eye: No discharge. Conjunctiva/sclera: Conjunctivae normal. Cardiovascular: Rate and Rhythm: Normal rate and regular rhythm. Pulses: Normal pulses. Heart sounds: No murmur heard. Pulmonary: Effort: Pulmonary effort is normal. No respiratory distress. Breath sounds: Normal breath sounds. Abdominal: General: Abdomen is flat. Bowel sounds are normal. There is no distension. Palpations: Abdomen is soft. Musculoskeletal: Right lower leg: No edema. Left lower leg: No edema. Skin: General: Skin is warm. Neurological: General: No focal deficit present. Mental Status: She is alert. Motor: Weakness (generalized in upper and lower extremities) present. Psychiatric: Mood and Affect: Mood normal. Behavior: Behavior normal. Labs and Imaging: Recent Results (from the past 24 hour(s)) ECG 12 lead Collection Time: 11/13/23 11:36 AM Result Value Ref Range Heart Rate 108 bpm QRSD Interval 83 ms QT Interval 341 ms QTC Interval 457 ms P Mcintyre 46 degrees QRS Mcintyre -30 degrees T Wave Mcintyre 50 degrees IN Interval 152 ms CBC auto differential Collection Time: 11/13/23 12:11 PM Result Value Ref Range Auto WBC 5.8 3.6 - 10.7 10*3/uL RBC 4.18 3.80 - 5.20 10*6/uL Hemoglobin 11.9 11.7 - 16.0 g/dL Hematocrit 37.5 35.0 - 47.0 % MCV 89.7 77.0 - 99.0 fL MCH 28.5 26.0 - 34.0 pg MCHC 31.7 30.5 - 36.0 % RDW 14.6 11.5 - 15.0 % Platelets 385 140 - 440 10*3/uL MPV 9.3 9.0 - 12.7 fL nRBC 0.0 0.0 - 2.0 /100 WBCs Neutrophils Relative 49.0 38.0 - 82.0 % Lymphocytes Relative 37.8 15.0 - 45.0 % Monocytes Relative 9.8 5.0 - 13.0 % Eosinophils Relative 2.2 0.0 - 6.0 % Basophils Relative 0.3 0.0 - 2.0 % Immature Grans % 0.9 0.0 - 2.0 % Neutrophils Absolute 2.9 1.8 - 7.5 10*3/uL Lymphocytes Absolute 2.2 1.0 - 4.3 10*3/uL Monocytes Absolute 0.6 0.0 - 0.9 10*3/uL Eosinophils Absolute 0.1 0.0 - 0.5 10*3/uL Basophils Absolute 0.0 0.0 - 0.2 10*3/uL Immature Grans Absolute 0.1 (H) <0.1 10*3/uL Comprehensive metabolic panel Collection Time: 11/13/23 12:11 PM Result Value Ref Range SODIUM 136 135 - 145 mmol/L POTASSIUM 4.5 3.5 - 5.1 mmol/L CHLORIDE 104 98 - 107 mmol/L CARBON DIOXIDE 25 22 - 30 mmol/L ANION GAP 6 3 - 13 mmol/L UREA NITROGEN 9 7 - 17 mg/dL CREATININE 0.73 0.52 - 1.04 mg/dL GLUCOSE 108 (H) 70 - 100 mg/dL CALCIUM 10.0 8.4 - 10.4 mg/dL AST (SGOT) 23 15 - 46 U/L ALT 11 0 - 34 U/L ALKALINE PHOSPHATASE 75 38 - 126 U/L ALBUMIN 3.5 3.5 - 5.0 g/dL BILIRUBIN, TOTAL 1.1 0.2 - 1.3 mg/dL TOTAL PROTEIN 6.5 6.3 - 8.2 g/dL eGFR 80.2 >60.0 mL/min/1.73m*2 Blood gas, venous (ACH and SBH) Collection Time: 11/13/23 12:11 PM Result Value Ref Range pH, Venous 7.378 7.330 - 7.430 pCO2, Venous 43.2 40.0 - 55.0 mm Hg pO2, Venous 41.1 30.0 - 50.0 mm Hg HCO3, Venous 24.9 23.0 - 27.0 mmol/L O2 Sat, Venous 71.6 60.0 - 80.0 % Base Excess, Venous -0.4 -3.0 - 3.0 mmol/L Hgb, blood gas 12.7 Screen Only g/dl TCO2, Venous 26.2 24.0 - 28.0 mmol/L Source Of Oxygen Room Air Troponin - One Time order ONLY Collection Time: 11/13/23 12:11 PM Result Value Ref Range TROPONIN I <0.012 <0.034 ng/mL C-reactive protein Collection Time: 11/13/23 12:11 PM Result Value Ref Range C REACTIVE PROTEIN 7.4 <10.0 mg/L Lab Results Component Value Date TSH 0.082 (L) 10/23/2023 No components found for: "B12" No results found for: "VITD25" Reviewed: active problem list, medication list, notes from last encounter, notes from last several encounters, lab results, imaging Follow-up: will follow with you Communication of Consult Recommendations: Assessment and recommendations communicated to primary service Associated attestation - Jannette Miranda MD - 11/13/2023 5:47 PM EDT TEACHING ATTENDING NOTE I have talked with and examined the patient and discussed the case with the fellow. I agree with the above findings and recommendations. 88 y.o. year-old female presents with intermittent change of mental status. On exam, she has findings of alert, eating her dinner, pleasant, no acute distress. Impression/Recommendations: Agree with findings as outlined by fellow. We took to hold off the gabapentin to reduce risk of withdrawal. Coreg dose was adjusted to her home dose. Signed electronically by JANNETTE MIRANDA MD on 11/13/2023 at 5:46 PM [facility] [employer] Work Phone: 11-13-2023 Note Formatting of this n ote might be different from the original. Patient's Ketan states she is Full code; [phone] Patient has poor insight into her code status. No documents available at this time. Son and [id number] did not cotton picker operator phone. Full Code. [facility] 11-13-2023 Note Formatting of this n ote might be different from the original. Patient's Ketan states she is Full code; [phone] Patient has poor insight into her code status. No documents available at this time. Son and [id number] did not cotton picker operator phone. Full Code. [facility] 11-13-2023 Emergency department Note , Ketan, lives at [facility] his number is [phone] Nika Robertson RN 11/13/23 1351 [facility] 11-13-2023 History and physical note Images from the original note were not included. Attending History and Physical Admit Date: 11/13/2023 PCP: Thais Talamantes Chief Complaint Patient presents with Altered Mental Status Patient arrives to ED via EMS from SNF for altered mental status. Patient is A&Ox2 at time of triage, patient complains of pain from bedsores. No further information from SNF, unknown baseline CHIEF COMPLAINT: AMS Reason for Admission: see diagnosis list History Obtained From: patient HISTORY OF PRESENT ILLNESS: Adore is a 88 y.o. female with PMH of see below who presented with Chief Complaint of episode of AMS. When asked if it smith when she urinates she replies "it smith in my right groin". Patient states she had an episode at [facility] states she was confused and "something else was low". No chest pain or SOB. She had just completed IV Rocephin on 11/10/2023 for streptococcus parasanguinis bacteremia. ED HR 108. pCO2 43 on VBG, Cr 0.73. Head CT showed only Cerebral atrophy and chronic small vessel ischemic disease. CXR showed bilateral chronic interstitial changes. Dr. Lawrence discussed case with ED provider Dr. Summers, admitted for further evaluation and management of AMS workup. Past Medical History: Past Medical History: Diagnosis Date CHF (congestive heart failure) (HCC) COPD (chronic obstructive pulmonary disease) (HCC) Past Surgical History: Past Surgical History: Procedure Laterality Date HIP SURGERY Right HYSTERECTOMY KNEE SURGERY Bilateral LEG MUSCLE SURGERY (HISTORICAL) Left Social History: Social History Socioeconomic History Marital status: Spouse name: Not on file Number of children: Not on file Years of education: Not on file Highest education level: Not on file Occupational History Not on file Tobacco Use Smoking status: Former Packs/day: 0.50 Years: 35.00 Additional pack years: 0.00 Total pack years: 17.50 Types: Cigarettes Start date: 1956 Quit date: 1991 Years since quittin.3 Smokeless tobacco: Never Substance and Sexual Activity Alcohol use: Yes Comment: obdulia bullard Drug use: Never Sexual activity: Not on file Other Topics Concern Not on file Social History Narrative Not on file Social Determinants of Health Financial Resource Strain: Low Risk (05/26/2022) Overall Financial Resource Strain (CARDIA) Difficulty of Paying Living Expenses: Not hard at all Food Insecurity: No Food Insecurity (05/26/2022) Hunger Vital Sign Worried About Running Out of Food in the Last Year: Never true Ran Out of Food in the Last Year: Never true Transportation Needs: Not on file Physical Activity: Not on file Stress: Not on file Social Connections: Not on file Intimate Partner Violence: Not At Risk (10/24/2023) Humiliation, Afraid, Rape, and Kick questionnaire Fear of Current or Ex-Partner: No Emotionally Abused: No Physically Abused: No Sexually Abused: No Housing Stability: Not on file Family History: No family history on file. Medications Prior to Admission: No current facility-administered medications on file prior to encounter. Current Outpatient Medications on File Prior to Encounter Medication Sig Dispense Refill acetaminophen (Tylenol) 500 MG tablet Take 500 mg by mouth every 6 hours as needed. calcium carbonate (Tums) 500 MG chewable tablet Chew 500 mg daily. carvedilol (Coreg) 12.5 MG tablet [] cefTRIAXone (Rocephin) IVPB Infuse 2 g into a venous catheter Every 24 hours. Docusate Sodium (DSS) 100 MG capsule Take 1 capsule by mouth 2 times daily. ergocalciferol (Vitamin D2) 1.25 MG (90467 UT) capsule ferrous sulfate 325 (65 Fe) MG tablet Take 325 mg by mouth daily (with breakfast). Lidocaine 4 % patch Place 1 patch on the skin daily. lisinopril 5 MG tablet ondansetron ODT (Zofran-ODT) 4 MG disintegrating tablet Take 1 tablet by mouth every 8 hours as needed. pantoprazole (ProtoNix) 40 MG EC tablet Take 1 tablet (40 mg) by mouth every morning (before breakfast). Do not crush, chew, or split. simvastatin (Zocor) 10 MG tablet Allergies: No Known Allergies REVIEW OF SYSTEMS: ROS negative except for what is mentioned in HPI Vitals: BP 112/62 (BP Location: Left arm, Patient Position: Sitting) Pulse 108 Temp 36.4 C (97.5 F) (Oral) Resp 16 Ht 5' 2" (1.575 m) Wt 140 lb (63.5 kg) SpO2 98% BMI 25.61 kg/m BMI Classification: Overweight (BMI 25.0-29.9) Pulse Ox: SpO2 Av % Min: 98 % Max: 98 % Supplemental O2: PHYSICAL EXAM: GENERAL: comfortable without complaints; A&O x 3, somewhat poor insight CARDIOVASCULAR: RRR no murmurs RESPIRATORY: clear without wheezes ABDOMEN: non-distended, soft EXTREMITIES: moving all spontaneously NIH SS: 0 CHRONIC ANATOMY/TUBES/LINES: N/A DATA: CBC: Recent Labs 11/13/23 1211 WBC 5.8 RBC 4.18 HGB 12.7 11.9 HCT 37.5 MCV 89.7 RDW 14.6 PLT 385 BMP: Recent Labs 11/13/23 1211 NA 136 K 4.5 CL 104 CO2 25 BUN 9 CREATININE 0.73 GLUCOSE 108* CALCIUM 10.0 ANIONGAP 6 LIVER PROFILE: Recent Labs 11/13/23 1211 AST 23 ALT 11 BILITOT 1.1 ALKPHOS 75 PROT 6.5 PT/INR: No results for input(s): "PROTIME", "INR" in the last 72 hours. CARDIAC ENZYMES: Recent Labs 11/13/23 1211 TROPONINI <0.012 Procalcitonin: No results found for: "PROCAL" Urine Culture: Results for orders placed or performed during the hospital encounter of 10/23/23 Urine culture Specimen: Urine, Clean Catch Result Value Ref Range Urine Culture Multiple species present; probable contamination; repeat suggested COVID-19 PCR: No results for input(s): "COVID19" in the last 72 hours. I reviewed: [x] laboratory results [x] radiographic results At the time of today's encounter. Pt was advised of the results. Data: Discussed with ED provider: Dr. Summers Assessment Discussed management with the ED provider and agree with hospitalization. Acute, acute on chronic, unstable/uncontrolled chronic problems/diagnoses: Transient AMS episode Very low TSH Pressure ulcer, subsequent encounter Stable chronic problems affecting care, new non-acute diagnoses: 3.5 cm hypodense nodule is noted in the right lobe of thyroid COPD, Normocytic anemia, HTN, HLD Plan As a result of the above findings & factors, the following mgmt was pursued: - Continue home meds, Coreg clarified as 3.125 mg BID - No wheezes on exam, respiratory status appears stable - Check TSH, NH4, UA and Brain MRI - Checking Free T4/T3 and Cortisol for TSH < 0.015 (H/O thyroid nodule) - Consulted Geriatrics for intermittent confusion, continue Jose Maria - am labs, replace lytes prn - PT/OT/CM/SW as appropriate - delirium precautions: limit night-time awakening - DVT prophylaxis: Lovenox Complexity: Acute illness or injury posing a threat to life or body function (HIGH). Risk: Admission to hospital-level care was considered or occurred (HIGH). Advance Directive: Full Anticipated Discharge - Date - next 1-2 days - Location - from [facility], there also - Pending the following - Workup Total time spent (which include face to face and non face to face encounters) in minutes: 89 Toxic drug monitoring/narrow therapeutic index drug monitoring : # Drug name : Lovenox # Route administered : SQ # Method of monitoring : H&H and renal function Extended Emergency Contact Information Primary Emergency Contact: Ketan Walter Relation: Spouse Secondary Emergency Contact: MartaPopeye Relation: Child Travis Lawrence DO Division of Hospitalist Medicine Inpatient Medical Services/[facility] [place] Phone: 11-13-2023 Emergency department Note , Ketan, lives at [facility] his number is [phone] Nika Robertson RN 11/13/[address] Summers at bedside, discussing with pt that [facility] was concerned about en episode of confusion and loss of words. Pt alert and speaking clearly at this time. MSP intact. Nika Robertson RN 11/13/23 [address] at this time Nika Robertson RN 11/13/23 1312 EMERGENCY DEPARTMENT ENCOUNTER Pt Name: Adore Walter Birthdate 1935 Date of evaluation: 11/13/2023 ED Provider: Aidan Summers MD CHIEF COMPLAINT Chief Complaint Patient presents with Altered Mental Status Patient arrives to ED via EMS from SNF for altered mental status. Patient is A&Ox2 at time of triage, patient complains of pain from bedsores. No further information from SNF, unknown baseline HISTORY OF PRESENT ILLNESS (Location/Symptom, Timing/Onset, Context/Setting, Quality, Duration, Modifying Factors, Severity) Note limiting factors. I wore appropriate PPE for the entirety of this encounter. HPI Adore Walter is a 88 y.o. who presents to the emergency department with chief complaint of altered mental status patient unable to provide any further history reportedly she was just more confused today. No known falls or medication changes no fevers cough vomiting here she has no complaints denies chest pain shortness of breath abdominal pain fever or urinary symptoms. She does note that she has diarrhea. Nursing Notes were reviewed. Limitations to history: Outside historians: REVIEW OF SYSTEMS Review of Systems Pertinent positives and negatives as per HPI. PAST MEDICAL HISTORY Past Medical History: Diagnosis Date CHF (congestive heart failure) (HCC) COPD (chronic obstructive pulmonary disease) (HCC) SURGICAL HISTORY Past Surgical History: Procedure Laterality Date HIP SURGERY Right HYSTERECTOMY KNEE SURGERY Bilateral LEG MUSCLE SURGERY (HISTORICAL) Left CURRENT MEDICATIONS Previous Medications ACETAMINOPHEN (TYLENOL) 500 MG TABLET Take 500 mg by mouth every 6 hours as needed. CALCIUM CARBONATE (TUMS) 500 MG CHEWABLE TABLET Chew 500 mg daily. CARVEDILOL (COREG) 12.5 MG TABLET DOCUSATE SODIUM (DSS) 100 MG CAPSULE Take 1 capsule by mouth 2 times daily. ERGOCALCIFEROL (VITAMIN D2) 1.25 MG (82832 UT) CAPSULE FERROUS SULFATE 325 (65 FE) MG TABLET Take 325 mg by mouth daily (with breakfast). LIDOCAINE 4 % PATCH Place 1 patch on the skin daily. LISINOPRIL 5 MG TABLET ONDANSETRON ODT (ZOFRAN-ODT) 4 MG DISINTEGRATING TABLET Take 1 tablet by mouth every 8 hours as needed. PANTOPRAZOLE (PROTONIX) 40 MG EC TABLET Take 1 tablet (40 mg) by mouth every morning (before breakfast). Do not crush, chew, or split. SIMVASTATIN (ZOCOR) 10 MG TABLET ALLERGIES Patient has no known allergies. FAMILY HISTORY No family history on file. SOCIAL HISTORY Social History Socioeconomic History Marital status: Tobacco Use Smoking status: Former Packs/day: 0.50 Years: 35.00 Additional pack years: 0.00 Total pack years: 17.50 Types: Cigarettes Start date: 1956 Quit date: 1991 Years since quittin.3 Smokeless tobacco: Never Substance and Sexual Activity Alcohol use: Yes [facility] Drug use: Never Social Determinants of Health Financial Resource Strain: Low Risk (05/26/2022) Overall Financial Resource Strain (CARDIA) Difficulty of Paying Living Expenses: Not hard at all Food Insecurity: No Food Insecurity (05/26/2022) Hunger Vital Sign Worried About Running Out of Food in the Last Year: Never true Ran Out of Food in the Last Year: Never true Intimate Partner Violence: Not At Risk (10/24/2023) Humiliation, Afraid, Rape, and Kick questionnaire Fear of Current or Ex-Partner: No Emotionally Abused: No Physically Abused: No Sexually Abused: No SCREENINGS PHYSICAL EXAM ED Triage Vitals [11/13/23 1124] Temp Heart Rate Resp BP 36.4 C (97.5 F) 108 16 112/62 SpO2 Temp Source Heart Rate Source Patient Position 98 % Oral Monitor Sitting BP Location FiO2 (%) Left arm -- Physical Exam Vitals and nursing note reviewed. Constitutional: General: She is not in acute distress. Appearance: She is well-developed. HENT: Head: Normocephalic and atraumatic. Eyes: Conjunctiva/sclera: Conjunctivae normal. Cardiovascular: Rate and Rhythm: Tachycardia present. Heart sounds: No murmur heard. Pulmonary: Effort: No respiratory distress. Breath sounds: No wheezing or rales. Abdominal: General: There is no distension. Tenderness: There is no abdominal tenderness. There is no guarding. Skin: General: Skin is warm and dry. Comments: No skin or soft tissue infections appreciated to the back legs area Neurological: Mental Status: She is alert. Comments: Moves all 4 extremities to command tell me her name and answer questions appropriately Psychiatric: Mood and Affect: Mood normal. DIAGNOSTIC RESULTS Procedures/EKG: EKG was reviewed by myself. Physician EKG interpretation can be found in [facility] RADIOLOGY (Per Emergency Physician): Interpretation per the Radiologist below, if available at the time of this note: CT head wo IV contrast (Results Pending) XR chest 1 view (Results Pending) ED BEDSIDE ULTRASOUND: Performed by ED Physician - none LABS: Labs Reviewed CBC WITH AUTO DIFFERENTIAL COMPREHENSIVE METABOLIC PANEL BLOOD GAS, VENOUS TROPONIN I COMPLETE URINALYSIS WITH REFLEX TO CULTURE Narrative: The following orders were created for panel order Complete Urinalysis with reflex to Culture. Procedure Abnormality Status --------- ------ Complete Urinalysis[[id number]] Please view results for these tests on the individual orders. COMPLETE URINALYSIS All other labs were within normal range or not returned as of this dictation. EMERGENCY DEPARTMENT COURSE and DIFFERENTIAL DIAGNOSIS/MDM: Vitals: Vitals: 11/13/23 1124 BP: 112/62 BP Location: Left arm Patient Position: Sitting Pulse: 108 Resp: 16 Temp: 36.4 C (97.5 F) TempSrc: Oral SpO2: 98% Weight: 63.5 kg (140 lb) Height: 1.575 m (5' 2") Patient present with some confusion here she appears to have relatively normal mental status vitals show slight tachycardia otherwise she is awake alert well-appearing plan to check blood gas given history of COPD and urinalysis broad metabolic workup will get head CT given she is 88 with confusion dispo pending labs and imaging. Medications - No data to display REVAL: CRITICAL CARE TIME CONSULTS: None PROCEDURES: Unless otherwise noted below, none Procedures Patients symptoms are consistent with sepsis, severe sepsis, or septic shock (If yes use ".sepsiscoremeasure"): no FINAL IMPRESSION No diagnosis found. DISPOSITION PATIENT REFERRED TO: No follow-up provider specified. DISCHARGE MEDICATIONS: New Prescriptions No medications on file (Comment: Please note this report has been produced using speech recognition software and may contain errors related to that system including errors in grammar, punctuation, and spelling, as well as words and phrases that may be inappropriate. If there are any questions or concerns please feel free to contact the dictating provider for clarification.) Aidan Summers MD (electronically signed) Emergency Medicine Provider Aidan Summers MD 11/13/23 1150 documented in this encounter [facility] 11-13-2023 History and physical note Images from the original note were not included. Attending History and Physical Admit Date: 11/13/2023 PCP: Thais Talamantes Chief Complaint Patient presents with Altered Mental Status Patient arrives to ED via EMS from SNF for altered mental status. Patient is A&Ox2 at time of triage, patient complains of pain from bedsores. No further information from SNF, unknown baseline CHIEF COMPLAINT: AMS Reason for Admission: see diagnosis list History Obtained From: patient HISTORY OF PRESENT ILLNESS: Adore is a 88 y.o. female with PMH of see below who presented with Chief Complaint of episode of AMS. When asked if it smith when she urinates she replies "it smith in my right groin". [facility] was confused and "something else was low". No chest pain or SOB. She had just completed IV Rocephin on 11/10/2023 for streptococcus parasanguinis bacteremia. ED HR 108. pCO2 43 on VBG, Cr 0.73. Head CT showed only Cerebral atrophy and chronic small vessel ischemic disease. CXR showed bilateral chronic interstitial changes. Dr. Lawrence discussed case with ED provider Dr. Summers, admitted for further evaluation and management of AMS workup. Past Medical History: Past Medical History: Diagnosis Date CHF (congestive heart failure) (HCC) COPD (chronic obstructive pulmonary disease) (HCC) Past Surgical History: Past Surgical History: Procedure Laterality Date HIP SURGERY Right HYSTERECTOMY KNEE SURGERY Bilateral LEG MUSCLE SURGERY (HISTORICAL) Left Social History: Social History Socioeconomic History Marital status: Spouse name: Not on file Number of children: Not on file Years of education: Not on file Highest education level: Not on file Occupational History Not on file Tobacco Use Smoking status: Former Packs/day: 0.50 Years: 35.00 Additional pack years: 0.00 Total pack years: 17.50 Types: Cigarettes Start date: 1956 Quit date: 1991 Years since quittin.3 Smokeless tobacco: Never Substance and Sexual Activity Alcohol use: Yes Comment: obdulia bullard Drug use: Never Sexual activity: Not on file Other Topics Concern Not on file Social History Narrative Not on file Social Determinants of Health Financial Resource Strain: Low Risk (05/26/2022) Overall Financial Resource Strain (CARDIA) Difficulty of Paying Living Expenses: Not hard at all Food Insecurity: No Food Insecurity (05/26/2022) Hunger Vital Sign Worried About Running Out of Food in the Last Year: Never true Ran Out of Food in the Last Year: Never true Transportation Needs: Not on file Physical Activity: Not on file Stress: Not on file Social Connections: Not on file Intimate Partner Violence: Not At Risk (10/24/2023) Humiliation, Afraid, Rape, and Kick questionnaire Fear of Current or Ex-Partner: No Emotionally Abused: No Physically Abused: No Sexually Abused: No Housing Stability: Not on file Family History: No family history on file. Medications Prior to Admission: No current facility-administered medications on file prior to encounter. Current Outpatient Medications on File Prior to Encounter Medication Sig Dispense Refill acetaminophen (Tylenol) 500 MG tablet Take 500 mg by mouth every 6 hours as needed. calcium carbonate (Tums) 500 MG chewable tablet Chew 500 mg daily. carvedilol (Coreg) 12.5 MG tablet [] cefTRIAXone (Rocephin) IVPB Infuse 2 g into a venous catheter Every 24 hours. Docusate Sodium (DSS) 100 MG capsule Take 1 capsule by mouth 2 times daily. ergocalciferol (Vitamin D2) 1.25 MG (39886 UT) capsule ferrous sulfate 325 (65 Fe) MG tablet Take 325 mg by mouth daily (with breakfast). Lidocaine 4 % patch Place 1 patch on the skin daily. lisinopril 5 MG tablet ondansetron ODT (Zofran-ODT) 4 MG disintegrating tablet Take 1 tablet by mouth every 8 hours as needed. pantoprazole (ProtoNix) 40 MG EC tablet Take 1 tablet (40 mg) by mouth every morning (before breakfast). Do not crush, chew, or split. simvastatin (Zocor) 10 MG tablet Allergies: No Known Allergies REVIEW OF SYSTEMS: ROS negative except for what is mentioned in HPI Vitals: BP 112/62 (BP Location: Left arm, Patient Position: Sitting) Pulse 108 Temp 36.4 C (97.5 F) (Oral) Resp 16 Ht 5' 2" (1.575 m) Wt 140 lb (63.5 kg) SpO2 98% BMI 25.61 kg/m BMI Classification: Overweight (BMI 25.0-29.9) Pulse Ox: SpO2 Av % Min: 98 % Max: 98 % Supplemental O2: PHYSICAL EXAM: GENERAL: comfortable without complaints; A&O x 3, somewhat poor insight CARDIOVASCULAR: RRR no murmurs RESPIRATORY: clear without wheezes ABDOMEN: non-distended, soft EXTREMITIES: moving all spontaneously NIH SS: 0 CHRONIC ANATOMY/TUBES/LINES: N/A DATA: CBC: Recent Labs 11/13/23 1211 WBC 5.8 RBC 4.18 HGB 12.7 11.9 HCT 37.5 MCV 89.7 RDW 14.6 PLT 385 BMP: Recent Labs 11/13/23 1211 NA 136 K 4.5 CL 104 CO2 25 BUN 9 CREATININE 0.73 GLUCOSE 108* CALCIUM 10.0 ANIONGAP 6 LIVER PROFILE: Recent Labs 11/13/23 1211 AST 23 ALT 11 BILITOT 1.1 ALKPHOS 75 PROT 6.5 PT/INR: No results for input(s): "PROTIME", "INR" in the last 72 hours. CARDIAC ENZYMES: Recent Labs 11/13/23 1211 TROPONINI <0.012 Procalcitonin: No results found for: "PROCAL" Urine Culture: Results for orders placed or performed during the hospital encounter of 10/23/23 Urine culture Specimen: Urine, Clean Catch Result Value Ref Range Urine Culture Multiple species present; probable contamination; repeat suggested COVID-19 PCR: No results for input(s): "COVID19" in the last 72 hours. I reviewed: [x] laboratory results [x] radiographic results At the time of today's encounter. Pt was advised of the results. Data: Discussed with ED provider: Dr. Summers Assessment Discussed management with the ED provider and agree with hospitalization. Acute, acute on chronic, unstable/uncontrolled chronic problems/diagnoses: Transient AMS episode Very low TSH Pressure ulcer, subsequent encounter Stable chronic problems affecting care, new non-acute diagnoses: 3.5 cm hypodense nodule is noted in the right lobe of thyroid COPD, Normocytic anemia, HTN, HLD Plan As a result of the above findings & factors, the following mgmt was pursued: - Continue home meds, Coreg clarified as 3.125 mg BID - No wheezes on exam, respiratory status appears stable - Check TSH, NH4, UA and Brain MRI - Checking Free T4/T3 and Cortisol for TSH < 0.015 (H/O thyroid nodule) - Consulted Geriatrics for intermittent confusion, continue Jose Maria - am labs, replace lytes prn - PT/OT/CM/SW as appropriate - delirium precautions: limit night-time awakening - DVT prophylaxis: Lovenox Complexity: Acute illness or injury posing a threat to life or body function (HIGH). Risk: Admission to hospital-level care was considered or occurred (HIGH). Advance Directive: Full Anticipated Discharge - Date - next 1-2 days - Location - from [facility], there also - Pending the following - Workup Total time spent (which include face to face and non face to face encounters) in minutes: 89 Toxic drug monitoring/narrow therapeutic index drug monitoring : # Drug name : Lovenox # Route administered : SQ # Method of monitoring : H&H and renal function Extended Emergency Contact Information Primary Emergency Contact: Ketan Walter Relation: Spouse Secondary Emergency Contact: Popeye Walter Relation: Child Travis Lawrence DO Division of Hospitalist Medicine Inpatient Medical Services/[facility] documented in this encounter [facility] 11-13-[address] Summers at bedside, discussing with pt that [facility] was concerned about en episode of confusion and loss of words. Pt alert and speaking clearly at this time. MSP intact. Nika Robertson RN 11/13/23 1340 [facility] 11-13-2023 Emergency department Note Pt taken to CT at this time Nika Robertson RN 11/13/23 1312 [facility] 11-13-2023 Physician Emergency department Note EMERGENCY DEPARTMENT ENCOUNTER Pt Name: Adore Walter Birthdate 1935 Date of evaluation: 11/13/2023 ED Provider: Aidan Summers MD CHIEF COMPLAINT Chief Complaint Patient presents with Altered Mental Status Patient arrives to ED via EMS from SNF for altered mental status. Patient is A&Ox2 at time of triage, patient complains of pain from bedsores. No further information from SNF, unknown baseline HISTORY OF PRESENT ILLNESS (Location/Symptom, Timing/Onset, Context/Setting, Quality, Duration, Modifying Factors, Severity) Note limiting factors. I wore appropriate PPE for the entirety of this encounter. HPI Adore Walter is a 88 y.o. who presents to the emergency department with chief complaint of altered mental status patient unable to provide any further history reportedly she was just more confused today. No known falls or medication changes no fevers cough vomiting here she has no complaints denies chest pain shortness of breath abdominal pain fever or urinary symptoms. She does note that she has diarrhea. Nursing Notes were reviewed. Limitations to history: Outside historians: REVIEW OF SYSTEMS Review of Systems Pertinent positives and negatives as per HPI. PAST MEDICAL HISTORY Past Medical History: Diagnosis Date CHF (congestive heart failure) (HCC) COPD (chronic obstructive pulmonary disease) (HCC) SURGICAL HISTORY Past Surgical History: Procedure Laterality Date HIP SURGERY Right HYSTERECTOMY KNEE SURGERY Bilateral LEG MUSCLE SURGERY (HISTORICAL) Left CURRENT MEDICATIONS Previous Medications ACETAMINOPHEN (TYLENOL) 500 MG TABLET Take 500 mg by mouth every 6 hours as needed. CALCIUM CARBONATE (TUMS) 500 MG CHEWABLE TABLET Chew 500 mg daily. CARVEDILOL (COREG) 12.5 MG TABLET DOCUSATE SODIUM (DSS) 100 MG CAPSULE Take 1 capsule by mouth 2 times daily. ERGOCALCIFEROL (VITAMIN D2) 1.25 MG (14443 UT) CAPSULE FERROUS SULFATE 325 (65 FE) MG TABLET Take 325 mg by mouth daily (with breakfast). LIDOCAINE 4 % PATCH Place 1 patch on the skin daily. LISINOPRIL 5 MG TABLET ONDANSETRON ODT (ZOFRAN-ODT) 4 MG DISINTEGRATING TABLET Take 1 tablet by mouth every 8 hours as needed. PANTOPRAZOLE (PROTONIX) 40 MG EC TABLET Take 1 tablet (40 mg) by mouth every morning (before breakfast). Do not crush, chew, or split. SIMVASTATIN (ZOCOR) 10 MG TABLET ALLERGIES Patient has no known allergies. FAMILY HISTORY No family history on file. SOCIAL HISTORY Social History Socioeconomic History Marital status: Tobacco Use Smoking status: Former Packs/day: 0.50 Years: 35.00 Additional pack years: 0.00 Total pack years: 17.50 Types: Cigarettes Start date: 1956 Quit date: 1991 Years since quittin.3 Smokeless tobacco: Never Substance and Sexual Activity Alcohol use: Yes Comment: obdulia bullard Drug use: Never Social Determinants of Health Financial Resource Strain: Low Risk (05/26/2022) Overall Financial Resource Strain (CARDIA) Difficulty of Paying Living Expenses: Not hard at all Food Insecurity: No Food Insecurity (05/26/2022) Hunger Vital Sign Worried About Running Out of Food in the Last Year: Never true Ran Out of Food in the Last Year: Never true Intimate Partner Violence: Not At Risk (10/24/2023) Humiliation, Afraid, Rape, and Kick questionnaire Fear of Current or Ex-Partner: No Emotionally Abused: No Physically Abused: No Sexually Abused: No SCREENINGS PHYSICAL EXAM ED Triage Vitals [11/13/23 1124] Temp Heart Rate Resp BP 36.4 C (97.5 F) 108 16 112/62 SpO2 Temp Source Heart Rate Source Patient Position 98 % Oral Monitor Sitting BP Location FiO2 (%) Left arm -- Physical Exam Vitals and nursing note reviewed. Constitutional: General: She is not in acute distress. Appearance: She is well-developed. HENT: Head: Normocephalic and atraumatic. Eyes: Conjunctiva/sclera: Conjunctivae normal. Cardiovascular: Rate and Rhythm: Tachycardia present. Heart sounds: No murmur heard. Pulmonary: Effort: No respiratory distress. Breath sounds: No wheezing or rales. Abdominal: General: There is no distension. Tenderness: There is no abdominal tenderness. There is no guarding. Skin: General: Skin is warm and dry. Comments: No skin or soft tissue infections appreciated to the back legs area Neurological: Mental Status: She is alert. Comments: Moves all 4 extremities to command tell me her name and answer questions appropriately Psychiatric: Mood and Affect: Mood normal. DIAGNOSTIC RESULTS Procedures/EKG: EKG was reviewed by myself. Physician EKG interpretation can be found in [facility] RADIOLOGY (Per Emergency Physician): Interpretation per the Radiologist below, if available at the time of this note: CT head wo IV contrast (Results Pending) XR chest 1 view (Results Pending) ED BEDSIDE ULTRASOUND: Performed by ED Physician - none LABS: Labs Reviewed CBC WITH AUTO DIFFERENTIAL COMPREHENSIVE METABOLIC PANEL BLOOD GAS, VENOUS TROPONIN I COMPLETE URINALYSIS WITH REFLEX TO CULTURE Narrative: The following orders were created for panel order Complete Urinalysis with reflex to Culture. Procedure Abnormality Status --------- ------ Complete Urinalysis[[id number]] Please view results for these tests on the individual orders. COMPLETE URINALYSIS All other labs were within normal range or not returned as of this dictation. EMERGENCY DEPARTMENT COURSE and DIFFERENTIAL DIAGNOSIS/MDM: Vitals: Vitals: 11/13/23 1124 BP: 112/62 BP Location: Left arm Patient Position: Sitting Pulse: 108 Resp: 16 Temp: 36.4 C (97.5 F) TempSrc: Oral SpO2: 98% Weight: 63.5 kg (140 lb) Height: 1.575 m (5' 2") Patient present with some confusion here she appears to have relatively normal mental status vitals show slight tachycardia otherwise she is awake alert well-appearing plan to check blood gas given history of COPD and urinalysis broad metabolic workup will get head CT given she is 88 with confusion dispo pending labs and imaging. Medications - No data to display REVAL: CRITICAL CARE TIME CONSULTS: None PROCEDURES: Unless otherwise noted below, none Procedures Patients symptoms are consistent with sepsis, severe sepsis, or septic shock (If yes use ".sepsiscoremeasure"): no FINAL IMPRESSION No diagnosis found. DISPOSITION PATIENT REFERRED TO: No follow-up provider specified. DISCHARGE MEDICATIONS: New Prescriptions No medications on file (Comment: Please note this report has been produced using speech recognition software and may contain errors related to that system including errors in grammar, punctuation, and spelling, as well as words and phrases that may be inappropriate. If there are any questions or concerns please feel free to contact the dictating provider for clarification.) Aidan Summers MD (electronically signed) Emergency Medicine Provider Aidan Summers MD 11/13/23 1150 [facility] 10-29-2023 History of Present illness Narrative Report called to [facility] [place]. Pt and family aware of transfer to facility. Images from the original note were not included. [facility] - Infectious Diseases Attending Progress Note Subjective: Follow up for septic shock, streptococcus parasanguinis bacteremia, and pneumonia due to influenza A. She was alert, laying on bed, felt well, not on O2; denied cough, SOB, pain, dysuria, tooth or gum pain, has dentures, she appeared debilitated but non-toxic. She was admitted to ICU on 10/24/23 from SNF with complaints of change in mentation and hypotension. In ED, on presentation, her BP was 62/47, had syncopal episode once moved to ED cot, had episodes of consciousness and immediatly falling back to sleep, labs showed elevated SCr 2.17, hypoalbuminemia (2.9), pyuria (>100 wbc); she remained hypotensive despite LR bolus, she was started on Levophed, heparin gtt was started for NSTEMI. She was examined; notes, labs and imaging were reviewed and treatment plan was discussed. Objective: Vitals: Patient Vitals for the past 24 hrs: BP Temp Temp src Pulse Resp SpO2 Weight 10/29/23 0945 137/77 (!) 35.8 C (96.4 F) Temporal 70 16 94 % -- 10/29/23 0915 -- -- -- 69 21 94 % -- 10/29/23 0910 -- -- -- 67 20 93 % -- 10/29/23 0905 -- -- -- 68 22 94 % -- 10/29/23 0900 -- -- -- 73 16 94 % -- 10/29/23 0840 (!) 163/83 (!) 35.9 C (96.7 F) Temporal 78 20 95 % -- 10/29/23 0302 -- -- -- -- -- -- 60.7 kg (133 lb 14.4 oz) 10/28/23 2343 136/74 36.8 C (98.3 F) Temporal 72 20 92 % -- 10/28/232002 144/68 36.3 C (97.3 F) Temporal 62 20 92 % -- 10/28/23 1713 152/74 -- -- 65 -- -- -- Physical Exam Vitals and nursing note reviewed. Constitutional: Appearance: She is ill-appearing but non-toxic. HENT: Head: Normocephalic and atraumatic. Nose: Nose normal. Mouth/Throat: Mouth: Mucous membranes are moist. Pharynx: Oropharynx is clear. Eyes: Extraocular Movements: Extraocular movements intact. Pupils: Pupils are equal, round, and reactive to light. Cardiovascular: Rate and Rhythm: Normal rate and regular rhythm. Pulmonary: Effort: Pulmonary effort is normal. Breath sounds: No wheezing. Comments: decreased breath sounds in bases bilaterally. Abdominal: General: Abdomen is flat. Bowel sounds are normal. Palpations: Abdomen is soft. Tenderness: There is no abdominal tenderness. Musculoskeletal: General: No swelling or tenderness. Normal range of motion. Cervical back: Normal range of motion and neck supple. Skin: General: Skin is warm and dry. Findings: No erythema. Neurological: General: No focal deficit present. Mental Status: She is alert and oriented to person, place, and time. Psychiatric: Mood and Affect: Mood normal. Behavior: Behavior normal. Labs: Recent Labs 10/27/2331910/28/2344810/29/23219 NA 136 136 136 K 3.4* 3.5 3.3* CL 110* 110* 106 CO2 23 24 27 BUN 19* 16 11 CREATININE 0.85 0.89 0.83 GLUCOSE 84 73 82 CALCIUM 8.0* 8.1* 8.4 PROT 4.7* 4.5* 4.9* BILITOT 0.5 0.5 0.6 ALKPHOS 42 41 46 AST 43 46 37 ALT 21 26 27 Recent Labs 10/27/2331910/28/2344810/29/23219 WBC 5.1 4.3 4.6 HGB 10.0* 10.4* 11.6* HCT 30.4* 31.3* 35.6 PLT 195 166 206 LYMPHOPCT 32.5 47.2* 44.0 MONOPCT 9.6 9.0 9.8 BASOPCT 0.2 0.0 0.2 NEUTROABS 2.9 1.9 2.1 Micro: No results for input(s): "COVID19" in the last 72 hours. Collected Updated Procedure Result Status 10/26/2023 0915 10/27/2023 1301 Blood culture Site #1 - Assess for effectiveness of treatment [[id number]] Blood, Venous Preliminary result Component Value Blood Culture No growth at 24 hours P 10/26/2023 0915 10/27/2023 1301 Blood culture Site #2 - Assess for effectiveness of treatment [[id number]] Blood, Venous Preliminary result Component Value Blood Culture No growth at 24 hours P 10/25/2023 1500 10/25/2023 2302 Respiratory culture and Stain [[id number]] (Abnormal) Sputum Final result Component Value Respiratory culture Culture canceled due to poor specimen quality. Recollect if clinically indicated. Gram Stain Result Moderate Epithelial cells per low power field Abnormal Few Polymorphonuclear leukocytes per low power field Abnormal Few Gram positive cocci Abnormal Rare Gram positive bacilli Abnormal Smear contains >= 15 squamous cells per low power field, suggestive of poor quality. Culture not performed. Please re-collect if clinically indicated. Abnormal 10/25/2023 1500 10/25/2023 2305 MRSA by PCR [[id number]] ESwab from Nasal Final result Component Value Staphylococcus aureus Not Detected mecA gene Not Detected 10/24/2023 0644 10/24/2023 1033 Legionella and Streptococcus Urine Antigen [[id number]] Urine, Clean Catch Final result Component Value Legionella pneumophila Ag Not Detected Streptococcus pneumoniae Ag Not Detected 10/24/2023 0644 10/25/2023 0957 Urine culture [[id number]] Urine, Clean Catch Final result Component Value Urine Culture Multiple species present; probable contamination; repeat suggested 10/24/2023 0022 10/25/2023 1055 Blood culture Site #1 - Suspected Infection [[id number]] (Abnormal) Blood, Venous Preliminary result Component Value Blood Culture Streptococcus parasanguinis Panic P 10/24/2023 0022 10/26/2023 0759 Blood culture Site #2 - Suspected Infection [[id number]] (Abnormal) Blood, Venous Final result Component Value Blood Culture Streptococcus parasanguinis Panic 10/24/2023 0022 10/24/2023 2119 Blood Culture Identification - Anaerobic [[id number]] (Abnormal) Blood, Venous Final result Component Value Streptococcus species Detected Abnormal 10/23/2023 2250 10/24/2023 0331 Respiratory Pathogens Panel by PCR [[id number]] (Abnormal) Swab from Nasopharynx Final result Component Value SARS-CoV-2 Not Detected Adenovirus Not Detected Coronavirus HKU1 Not Detected Coronavirus NL63 Not Detected Coronavirus 229E Not Detected Coronavirus OC43 Not Detected Human Metapneumovirus Not Detected Human Rhinovirus/Enterovirus Not Detected Influenza A Detected Abnormal Influenza B Not Detected Parainfluenza 1 Not Detected Parainfluenza 2 Not Detected Parainfluenza 3 Not Detected Parainfluenza 4 Not Detected Respiratory Syncytial Virus Not Detected Bordetella pertussis Not Detected Bordetella parapertussis Not Detected Chlamydia pneumoniae Not Detected Mycoplasma pneumoniae Not Detected Lines: Rt picc. Placed on 10/29/23 Radiography/Echo/Other: Procedure Component Value Units Date/Time XR chest 1 view [[id number]] Collected: 10/24/23612 Order Status: Completed Updated: 10/24/23614 Narrative: Patient Name: ADORE WALTER : 1935 Exam Date/Time: 10/24/2023 02:51 Procedure: XR CHEST 1 VIEW Ordering Provider: ALONSO MANSUR Reason For Exam: PROCEDURES CHEST - PORTABLE: CLINICAL INDICATION: Central venous catheter placement TECHNIQUE: Portable AP COMPARISON: One day ago FINDINGS: Life support devices: Right jugular venous catheter with its tip in the region of the superior vena cava Heart/Mediastinum: Unchanged Lungs/Pleura: Reticular opacities remain throughout the lungs are there is no pneumothorax. Costophrenic angles are sharp. Impression: Central venous catheter in adequate position without pneumothorax. Report Dictated on Electronically Signed By: Aaron Keller MD Electronically Signed Date/Time: 10/24/2023 6:14 AM EDT CTA chest abdomen pelvis angiogram w and/or wo contrast [[id number]] Collected: 10/23/232242 Order Status: Completed Updated: 10/23/232317 Addenda: Patient Name: ADORE WALTER : 1935 Exam Date/Time: 10/23/2023 22:29 Procedure: CT CHEST ABDOMEN PELVIS ANGIOGRAM W AND/OR WO CONTRAST Ordering Provider: AREVALO MICHAEL Reason For Exam: NSTEMI, concern for dissection vs ruptured aortic aneurysm --------ADDENDUM #1 -------- Follow-up thyroid ultrasound is recommended for incidental thyroid nodule that is equal to or greater than 1.5 cm in patients 35 years of age or older. Patients with comorbidities or limited life expectancy should not have further evaluation of the thyroid nodule, unless it is warranted clinically, or specifically requested by the patient or referring physician. Reference: Mile Skinner et al "Managing incidental thyroid nodules detected on imaging: White paper of the ACR incidental thyroid findings committee" J Am Juju Radiol 2015;12:143-150. Report Dictated on Electronically Signed By: Aaron Manzo MD Electronically Signed Date/Time: 10/23/2023 11:17 PM EDT --------ORIGINAL REPORT -------- CLINICAL INFORMATION: Progressive chest and abdominal pain. Abdominal pain extending into the pelvis. Evaluate for aortic dissection. CTA CHEST: Images are first obtained prior to IV contrast. After 75 mL Isovue IV contrast, 1 mm axial cuts through the chest are obtained. 3D reconstructions are performed by me and reviewed simultaneously on the separate [employer] workstation. Sagittal and coronal reconstructions are also reviewed. Dose reduction was employed with automated exposure control. FINDINGS: A good contrast bolus is identified within the thoracic aorta. The ascending, arch, and descending thoracic aorta are normal in caliber without evidence of aneurysm or dissection. There are no filling defects to suggest pulmonary embolism. The pulmonary arteries are enlarged consistent with chronic pulmonary hypertension. The heart size is normal. There is no significant mediastinal lymphadenopathy. Mild emphysematous changes are noted diffusely. Atelectasis and mild infiltrates are noted in both lower lobes. No pleural effusions are seen. A 3.5 cm hypodense nodule is noted in the right lobe of thyroid. IMPRESSION: 1. No evidence of aortic aneurysm or dissection. 2. COPD with evidence of chronic pulmonary hypertension. 3. Mild bibasilar infiltrates. CTA ABDOMEN: 1 mm axial cuts are obtained from the dome of the liver through the iliac crests with 75 mL Isovue IV contrast. 3D images with coronal and sagittal planar images were reconstructed by wi and reviewed simultaneously on the [employer] Workstation. Dose reduction was employed with automated exposure control. FINDINGS: The abdominal aorta is normal in caliber without evidence of aneurysmal dilatation or dissection. The celiac trunk and SMA origins are normal. Single renal arteries are identified bilaterally. There is no evidence of renal artery stenosis. The inferior mesenteric artery remains patent. The liver and spleen are normal. The pancreas and adrenal glands are within normal limits. Both kidneys are visualized in their cortical phase. There is no hydronephrosis or hydroureter. No free fluid is seen within the abdomen. IMPRESSION: 1. There is no evidence of aortic aneurysm or dissection. 2. The mesenteric and renal vessel origins are normal. CTA PELVIS: 1 mm axial cuts are obtained from the iliac crests through the symphysis pubis with 75 mL Isovue IV contrast. 3D images with coronal and sagittal planar images were reconstructed by me and reviewed simultaneously on the [employer] Workstation. Dose reduction was employed with automated exposure control. FINDINGS: Mild atherosclerotic changes are present in the common iliac arteries bilaterally. However, this does not appear flow-limiting. The common femoral arteries are normal bilaterally. There is no evidence of bowel obstruction. The bladder is normal. No free fluid is seen within the pelvis. Sagittal reconstructed images of the spine demonstrate numerous chronic-appearing compression fractures (T11, L2, L4, and L5). Hip surgeries are noted bilaterally. IMPRESSION: 1. No evidence of aortic aneurysm or dissection. 2. COPD with evidence of chronic pulmonary hypertension. 3. Mild bibasilar infiltrates. 4. Numerous old thoracolumbar compression fractures. Report Dictated on Electronically Signed By: Aaron Manzo MD Electronically Signed Date/Time: 10/23/2023 10:51 PM EDT Signed: 10/23/232316 by Aaron Manzo MD Narrative: Patient Name: ADORE WALTER : 1935 Exam Date/Time: 10/23/2023 22:29 Procedure: CT CHEST ABDOMEN PELVIS ANGIOGRAM W AND/OR WO CONTRAST Ordering Provider: AREVALO MICHAEL Reason For Exam: NSTEMI, concern for dissection vs ruptured aortic aneurysm CLINICAL INFORMATION: Progressive chest and abdominal pain. Abdominal pain extending into the pelvis. Evaluate for aortic dissection. CTA CHEST: Images are first obtained prior to IV contrast. After 75 mL Isovue IV contrast, 1 mm axial cuts through the chest are obtained. 3D reconstructions are performed by me and reviewed simultaneously on the separate [employer] workstation. Sagittal and coronal reconstructions are also reviewed. Dose reduction was employed with automated exposure control. FINDINGS: A good contrast bolus is identified within the thoracic aorta. The ascending, arch, and descending thoracic aorta are normal in caliber without evidence of aneurysm or dissection. There are no filling defects to suggest pulmonary embolism. The pulmonary arteries are enlarged consistent with chronic pulmonary hypertension. The heart size is normal. There is no significant mediastinal lymphadenopathy. Mild emphysematous changes are noted diffusely. Atelectasis and mild infiltrates are noted in both lower lobes. No pleural effusions are seen. A 3.5 cm hypodense nodule is noted in the right lobe of thyroid. Impression: 1. No evidence of aortic aneurysm or dissection. 2. COPD with evidence of chronic pulmonary hypertension. 3. Mild bibasilar infiltrates. CTA ABDOMEN: 1 mm axial cuts are obtained from the dome of the liver through the iliac crests with 75 mL Isovue IV contrast. 3D images with coronal and sagittal planar images were reconstructed by me and reviewed simultaneously on the [employer] Workstation. Dose reduction was employed with automated exposure control. FINDINGS: The abdominal aorta is normal in caliber without evidence of aneurysmal dilatation or dissection. The celiac trunk and SMA origins are normal. Single renal arteries are identified bilaterally. There is no evidence of renal artery stenosis. The inferior mesenteric artery remains patent. The liver and spleen are normal. The pancreas and adrenal glands are within normal limits. Both kidneys are visualized in their cortical phase. There is no hydronephrosis or hydroureter. No free fluid is seen within the abdomen. IMPRESSION: 1. There is no evidence of aortic aneurysm or dissection. 2. The mesenteric and renal vessel origins are normal. CTA PELVIS: 1 mm axial cuts are obtained from the iliac crests through the symphysis pubis with 75 mL Isovue IV contrast. 3D images with coronal and sagittal planar images were reconstructed by me and reviewed simultaneously on the [employer] Workstation. Dose reduction was employed with automated exposure control. FINDINGS: Mild atherosclerotic changes are present in the common iliac arteries bilaterally. However, this does not appear flow-limiting. The common femoral arteries are normal bilaterally. There is no evidence of bowel obstruction. The bladder is normal. No free fluid is seen within the pelvis. Sagittal reconstructed images of the spine demonstrate numerous chronic-appearing compression fractures (T11, L2, L4, and L5). Hip surgeries are noted bilaterally. IMPRESSION: 1. No evidence of aortic aneurysm or dissection. 2. COPD with evidence of chronic pulmonary hypertension. 3. Mild bibasilar infiltrates. 4. Numerous old thoracolumbar compression fractures. Report Dictated on Electronically Signed By: Aaron Manzo MD Electronically Signed Date/Time: 10/23/2023 10:[address] head wo IV contrast [[id number]] Collected: 10/23/232240 Order Status: Completed Updated: 10/23/232243 Narrative: Patient Name: ADORE WALTER : 1935 Exam Date/Time: 10/23/2023 22:27 Procedure: CT HEAD WO IV CONTRAST Ordering Provider: CLAROS COURTNEY Reason For Exam: Mental status change, unknown cause CT BRAIN WITHOUT CONTRAST CLINICAL INDICATION: Mental status change, unknown cause TECHNIQUE: CT scan of the brain without IV contrast. Multiplanar reformations. Dose reduction was employed with automated exposure control. COMPARISON: September,. FINDINGS: No apparent mass or mass effect, hemorrhage, midline shift or hydrocephalus. No evidence of acute cortical infarct. No abnormal, extra-axial fluid or air collection. Patchy low density in the periventricular and subcortical white matter is nonspecific, but may relate to chronic small vessel ischemic change. Mild-moderate, diffuse volume loss. Osseous calvarium grossly intact. Marginal mucosal thickening in the left maxillary sinus and more pronounced mucosal thickening in the sphenoid sinus. Partial opacification of bilateral mastoid sinus. Impression: 1. No acute intracranial findings. 2. Probable chronic ischemic and atrophic changes. 3. Sphenoid and bilateral mastoid sinus disease. Report Dictated on Electronically Signed By: Tutu Arroyo MD Electronically Signed Date/Time: 10/23/2023 10:43 PM EDT XR chest 1 view [[id number]] Collected: 10/23/232146 Order Status: Completed Updated: 10/23/232148 Narrative: [facility] 1935 [id number] Exam Date/Time: 10/23/2023 21:47 Procedure: XR CHEST 1 VIEW Ordering Provider: CLAROS COURTNEY Reason For Exam: ALTERED MENTAL STATUS CHEST PORTABLE CLINICAL INDICATION: ALTERED MENTAL STATUS TECHNIQUE: Portable chest x-ray(s). COMPARISON: September,. FINDINGS: Patient rotated to the right. Cardiac silhouette prominent, which may be due in part to technique, but stable. Lungs show interstitial prominence or coarsening bilaterally, about the same. No focal consolidation or apparent pneumothorax. Degenerative change again noted in the thoracic spine and bilateral shoulders. Impression: 1. Stable examination. No acute findings. Report Dictated on Electronically Signed By: Tutu Arroyo MD Electronically Signed Date/Time: 10/23/2023 9:47 PM EDT 10/24/23 TTE: Interpretation Summary Left Ventricle: Left ventricle size is normal. Mildly increased wall thickness. Moderate septal thickening. Normal left ventricular systolic function. EF by 2D Simpsons Biplane is 76%. Normal wall motion. Normal diastolic function. Right Ventricle: Right ventricle size is normal. RV basal diameter is 3.6 cm. RV mid diameter is 3.3 cm. Normal systolic function. TAPSE is normal. TAPSE is 2.5 cm. Aortic Valve: Mildly thickened cusps. Mildly calcified cusps. Left, right and noncoronary cusps sclerosis. Mild (1+) regurgitation. Aortic sclerosis/mild stenosis. Mitral Valve: Mildly thickened leaflets. Mild annular calcification (posterior). Trace regurgitation. Pulmonic Valve: Valve structure is normal. Mildly thickened cusps. Left Atrium: Left atrium size is mildly increased (LA volume index 35-41 mL/m2).LA Vol Index A/L is 36 mL/m2. Right Atrium: Not well visualized. Right atrium size is normal. Aorta: Normal sized sinuses of Valsalva. Sinuses of Valsalva diameter is 3.6 cm. Moderately dilated ascending aorta. Ao ascending diameter is 4.0 cm. Pericardium: Evidence of prominent epicardial fat. No pericardial effusion. Comparison Study Information Prior Study There is a prior study available for comparison. Prior study date: 12/12/2020. EF 48%. Echo Findings Left Ventricle Left ventricle size is normal. Mildly increased wall thickness. Moderate septal thickening. Normal left ventricular systolic function. EF by 2D Simpsons Biplane is 76%. Normal wall motion. Normal diastolic function. Right Ventricle Right ventricle size is normal. RV basal diameter is 3.6 cm. RV mid diameter is 3.3 cm. Normal systolic function. TAPSE is normal. TAPSE is 2.5 cm. Left Atrium Left atrium size is mildly increased (LA volume index 35-41 mL/m2).LA Vol Index A/L is 36 mL/m2. Interatrial Septum Interatrial septum was not well visualized. No interatrial shunt visualized on color Doppler. Right Atrium Not well visualized. Right atrium size is normal. Aortic Valve Mildly thickened cusps. Mildly calcified cusps. Left, right and noncoronary cusps sclerosis. Mild (1+) regurgitation. Aortic sclerosis/mild stenosis. Mitral Valve Mildly thickened leaflets. Mild annular calcification (posterior). Trace regurgitation. No stenosis noted. Tricuspid Valve Not well visualized. Valve structure is normal. Trace regurgitation. Pulmonic Valve Valve structure is normal. Mildly thickened cusps. Mild (1+) regurgitation. Aorta Normal sized sinuses of Valsalva. Sinuses of Valsalva diameter is 3.6 cm. Moderately dilated ascending aorta. Ao ascending diameter is 4.0 cm. IVC/Hepatic Veins IVC is mildly dilated. IVC diameter is dilated and decreases greater than 50% during inspiration; therefore the estimated right atrial pressure is intermediate (~8 mmHg). Pericardium Evidence of prominent epicardial fat. No pericardial effusion. Study Details Image quality: poor. Heart rate: 63 bpm. Blood pressure: 93/47 mmHg. Technical qualifiers: Technically difficult study with poor endocardial visualization. Ultrasound enhancement agent was given to enhance imaging. Antimicrobials, Start/End Dates: Pip/tazo Ceftr 10/25- Oseltamivir Vanco Impression: Septic shock. Improved. Streptococcus parasanguinis bacteremia. Pneumonia due to Influenza A. COPD with evidence of chronic pulmonary hypertension. NSTEMI. Plan: Pt clinically improved, was admitted sick due to septic shock due to streptococcus parasanguinis bacteremia and Influenza A pneumonia. Afebrile, hemodynamically ok. Off O2. Blood cxs were repted on 10/25, -neg so far. 2D ECHO did not detect any vegetation. Continue ceftriaxone for 2 weeks from -neg cx date, till 11/10/23. On 11/17/23, blood cx x2 to document sterility. OPAT in chart. Please call with any further question. Total time 50 minutes on this day of encounter includes counseling, coordinating plan of care, record and documentation review before and after visit including documentation and time not explicitly included on EMR time stamp for accounting for open encounter. Images from the original note were not included. [facility] - Infectious Diseases Attending Progress Note Subjective: Follow up for septic shock, streptococcus parasanguinis bacteremia, and pneumonia due to influenza A. She was alert, laying on bed, felt better; denied cough, SOB, pain, dysuria, tooth or gum pain, has dentures; blood cxs grew strep parasanguinis, she appeared debilitated but nontsxic. She was admitted to ICU on 10/24/23 from [facility] with complaints of change in mentation and hypotension. In ED, on presentation, her BP was 62/47, had syncopal episode once moved to ED cot, had episodes of consciousness and immediatly falling back to sleep, labs showed elevated SCr 2.17, hypoalbuminemia (2.9), pyuria (>100 wbc); she remained hypotensive despite LR bolus, she was started on Levophed, heparin gtt was started for NSTEMI. She was examined; notes, labs and imaging were reviewed and treatment plan was discussed. Objective: Vitals: Patient Vitals for the past 24 hrs: BP Temp Temp src Pulse Resp SpO2 Weight 10/28/23 0818 143/63 36.4 C (97.6 F) Temporal 63 20 94 % -- 10/28/23 0607 -- -- -- -- -- -- 64.8 kg (142 lb 13.7 oz) 10/27/23 1943 118/54 36.5 C (97.7 F) Temporal 58 16 93 % -- 10/27/23 1750 118/66 -- -- 61 -- 94 % -- Physical Exam Vitals and nursing note reviewed. Constitutional: Appearance: She is ill-appearing. HENT: Head: Normocephalic and atraumatic. Nose: Nose normal. Mouth/Throat: Mouth: Mucous membranes are moist. Pharynx: Oropharynx is clear. Eyes: Extraocular Movements: Extraocular movements intact. Pupils: Pupils are equal, round, and reactive to light. Cardiovascular: Rate and Rhythm: Normal rate and regular rhythm. Pulmonary: Effort: Pulmonary effort is normal. Breath sounds: No wheezing. Comments: Coarse breath sounds bilaterally. Abdominal: General: Abdomen is flat. Bowel sounds are normal. Palpations: Abdomen is soft. Tenderness: There is no abdominal tenderness. Musculoskeletal: General: No swelling or tenderness. Normal range of motion. Cervical back: Normal range of motion and neck supple. Skin: General: Skin is warm and dry. Findings: No erythema. Neurological: General: No focal deficit present. Mental Status: She is alert and oriented to person, place, and time. Psychiatric: Mood and Affect: Mood normal. Behavior: Behavior normal. Labs: Recent Labs 10/26/23 0500 10/27/23 0320 10/28/23 0449 NA 135 136 136 K 3.2* 3.4* 3.5 CL 107 110* 110* CO2 24 23 24 BUN 20* 19* 16 CREATININE 1.00 0.85 0.89 GLUCOSE 108* 84 73 CALCIUM 8.3* 8.0* 8.1* PROT 5.3* 4.7* 4.5* BILITOT 0.6 0.5 0.5 ALKPHOS 49 42 41 AST 37 43 46 ALT 16 21 26 Recent Labs 10/26/23 0500 10/27/23 0320 10/28/23 0449 WBC 6.6 5.1 4.3 HGB 10.5* 10.0* 10.4* HCT 32.1* 30.4* 31.3* PLT 208 195 166 LYMPHOPCT 15.6 32.5 47.2* MONOPCT 4.5* 9.6 9.0 BASOPCT 0.2 0.2 0.0 NEUTROABS 5.2 2.9 1.9 Micro: No results for input(s): "COVID19" in the last 72 hours. Collected Updated Procedure Result Status 10/26/2023 0915 10/27/2023 1301 Blood culture Site #1 - Assess for effectiveness of treatment [[id number]] Blood, Venous Preliminary result Component Value Blood Culture No growth at 24 hours P 10/26/2023 0915 10/27/2023 1301 Blood culture Site #2 - Assess for effectiveness of treatment [[id number]] Blood, Venous Preliminary result Component Value Blood Culture No growth at 24 hours P 10/25/2023 1500 10/25/2023 2302 Respiratory culture and Stain [[id number]] (Abnormal) Sputum Final result Component Value Respiratory culture Culture canceled due to poor specimen quality. Recollect if clinically indicated. Gram Stain Result Moderate Epithelial cells per low power field Abnormal Few Polymorphonuclear leukocytes per low power field Abnormal Few Gram positive cocci Abnormal Rare Gram positive bacilli Abnormal Smear contains >= 15 squamous cells per low power field, suggestive of poor quality. Culture not performed. Please re-collect if clinically indicated. Abnormal 10/25/2023 1500 10/25/2023 2305 MRSA by PCR [[id number]] ESwab from Nasal Final result Component Value Staphylococcus aureus Not Detected mecA gene Not Detected 10/24/2023 0644 10/24/2023 1033 Legionella and Streptococcus Urine Antigen [[id number]] Urine, Clean Catch Final result Component Value Legionella pneumophila Ag Not Detected Streptococcus pneumoniae Ag Not Detected 10/24/2023 0644 10/25/2023 0957 Urine culture [[id number]] Urine, Clean Catch Final result Component Value Urine Culture Multiple species present; probable contamination; repeat suggested 10/24/2023 0022 10/25/2023 1055 Blood culture Site #1 - Suspected Infection [[id number]] (Abnormal) Blood, Venous Preliminary result Component Value Blood Culture Streptococcus parasanguinis Panic P 10/24/2023 0022 10/26/2023 0759 Blood culture Site #2 - Suspected Infection [[id number]] (Abnormal) Blood, Venous Final result Component Value Blood Culture Streptococcus parasanguinis Panic 10/24/2023 0022 10/24/2023 2119 Blood Culture Identification - Anaerobic [[id number]] (Abnormal) Blood, Venous Final result Component Value Streptococcus species Detected Abnormal 10/23/2023 2250 10/24/2023 0331 Respiratory Pathogens Panel by PCR [[id number]] (Abnormal) Swab from Nasopharynx Final result Component Value SARS-CoV-2 Not Detected Adenovirus Not Detected Coronavirus HKU1 Not Detected Coronavirus NL63 Not Detected Coronavirus 229E Not Detected Coronavirus OC43 Not Detected Human Metapneumovirus Not Detected Human Rhinovirus/Enterovirus Not Detected Influenza A Detected Abnormal Influenza B Not Detected Parainfluenza 1 Not Detected Parainfluenza 2 Not Detected Parainfluenza 3 Not Detected Parainfluenza 4 Not Detected Respiratory Syncytial Virus Not Detected Bordetella pertussis Not Detected Bordetella parapertussis Not Detected Chlamydia pneumoniae Not Detected Mycoplasma pneumoniae Not Detected Lines: PIV Radiography/Echo/Other: Procedure Component Value Units Date/Time XR chest 1 view [[id number]] Collected: 10/24/23612 Order Status: Completed Updated: 10/24/23614 Narrative: Patient Name: ADORE AWLTER : 1935 Exam Date/Time: 10/24/2023 02:51 Procedure: XR CHEST 1 VIEW Ordering Provider: ALONSO MANSUR Reason For Exam: PROCEDURES CHEST - PORTABLE: CLINICAL INDICATION: Central venous catheter placement TECHNIQUE: Portable AP COMPARISON: One day ago FINDINGS: Life support devices: Right jugular venous catheter with its tip in the region of the superior vena cava Heart/Mediastinum: Unchanged Lungs/Pleura: Reticular opacities remain throughout the lungs are there is no pneumothorax. Costophrenic angles are sharp. Impression: Central venous catheter in adequate position without pneumothorax. Report Dictated on Electronically Signed By: Aaron Keller MD Electronically Signed Date/Time: 10/24/2023 6:14 AM EDT CTA chest abdomen pelvis angiogram w and/or wo contrast [[id number]] Collected: 10/23/232242 Order Status: Completed Updated: 10/23/232317 Addenda: Patient Name: ADORE WALTER : 1935 Exam Date/Time: 10/23/2023 22:29 Procedure: CT CHEST ABDOMEN PELVIS ANGIOGRAM W AND/OR WO CONTRAST Ordering Provider: AREVALO MICHAEL Reason For Exam: NSTEMI, concern for dissection vs ruptured aortic aneurysm --------ADDENDUM #1 -------- Follow-up thyroid ultrasound is recommended for incidental thyroid nodule that is equal to or greater than 1.5 cm in patients 35 years of age or older. Patients with comorbidities or limited life expectancy should not have further evaluation of the thyroid nodule, unless it is warranted clinically, or specifically requested by the patient or referring physician. Reference: Mile Skinner et al "Managing incidental thyroid nodules detected on imaging: White paper of the ACR incidental thyroid findings committee" J Am Juju Radiol 2015;12:143-150. Report Dictated on Electronically Signed By: Aaron Manzo MD Electronically Signed Date/Time: 10/23/2023 11:17 PM EDT --------ORIGINAL REPORT -------- CLINICAL INFORMATION: Progressive chest and abdominal pain. Abdominal pain extending into the pelvis. Evaluate for aortic dissection. CTA CHEST: Images are first obtained prior to IV contrast. After 75 mL Isovue IV contrast, 1 mm axial cuts through the chest are obtained. 3D reconstructions are performed by me and reviewed simultaneously on the separate [employer] workstation. Sagittal and coronal reconstructions are also reviewed. Dose reduction was employed with automated exposure control. FINDINGS: A good contrast bolus is identified within the thoracic aorta. The ascending, arch, and descending thoracic aorta are normal in caliber without evidence of aneurysm or dissection. There are no filling defects to suggest pulmonary embolism. The pulmonary arteries are enlarged consistent with chronic pulmonary hypertension. The heart size is normal. There is no significant mediastinal lymphadenopathy. Mild emphysematous changes are noted diffusely. Atelectasis and mild infiltrates are noted in both lower lobes. No pleural effusions are seen. A 3.5 cm hypodense nodule is noted in the right lobe of thyroid. IMPRESSION: 1. No evidence of aortic aneurysm or dissection. 2. COPD with evidence of chronic pulmonary hypertension. 3. Mild bibasilar infiltrates. CTA ABDOMEN: 1 mm axial cuts are obtained from the dome of the liver through the iliac crests with 75 mL Isovue IV contrast. 3D images with coronal and sagittal planar images were reconstructed by me and reviewed simultaneously on the [employer] Workstation. Dose reduction was employed with automated exposure control. FINDINGS: The abdominal aorta is normal in caliber without evidence of aneurysmal dilatation or dissection. The celiac trunk and SMA origins are normal. Single renal arteries are identified bilaterally. There is no evidence of renal artery stenosis. The inferior mesenteric artery remains patent. The liver and spleen are normal. The pancreas and adrenal glands are within normal limits. Both kidneys are visualized in their cortical phase. There is no hydronephrosis or hydroureter. No free fluid is seen within the abdomen. IMPRESSION: 1. There is no evidence of aortic aneurysm or dissection. 2. The mesenteric and renal vessel origins are normal. CTA PELVIS: 1 mm axial cuts are obtained from the iliac crests through the symphysis pubis with 75 mL Isovue IV contrast. 3D images with coronal and sagittal planar images were reconstructed by me and reviewed simultaneously on the [employer] Workstation. Dose reduction was employed with automated exposure control. FINDINGS: Mild atherosclerotic changes are present in the common iliac arteries bilaterally. However, this does not appear flow-limiting. The common femoral arteries are normal bilaterally. There is no evidence of bowel obstruction. The bladder is normal. No free fluid is seen within the pelvis. Sagittal reconstructed images of the spine demonstrate numerous chronic-appearing compression fractures (T11, L2, L4, and L5). Hip surgeries are noted bilaterally. IMPRESSION: 1. No evidence of aortic aneurysm or dissection. 2. COPD with evidence of chronic pulmonary hypertension. 3. Mild bibasilar infiltrates. 4. Numerous old thoracolumbar compression fractures. Report Dictated on Electronically Signed By: Aaron Manzo MD Electronically Signed Date/Time: 10/23/2023 10:51 PM EDT Signed: 10/23/232316 by Aaron Manzo MD Narrative: Patient Name: ADORE WALTER : 1935 Exam Date/Time: 10/23/2023 22:29 Procedure: CT CHEST ABDOMEN PELVIS ANGIOGRAM W AND/OR WO CONTRAST Ordering Provider: AREVALO MICHAEL Reason For Exam: NSTEMI, concern for dissection vs ruptured aortic aneurysm CLINICAL INFORMATION: Progressive chest and abdominal pain. Abdominal pain extending into the pelvis. Evaluate for aortic dissection. CTA CHEST: Images are first obtained prior to IV contrast. After 75 mL Isovue IV contrast, 1 mm axial cuts through the chest are obtained. 3D reconstructions are performed by me and reviewed simultaneously on the separate [employer] workstation. Sagittal and coronal reconstructions are also reviewed. Dose reduction was employed with automated exposure control. FINDINGS: A good contrast bolus is identified within the thoracic aorta. The ascending, arch, and descending thoracic aorta are normal in caliber without evidence of aneurysm or dissection. There are no filling defects to suggest pulmonary embolism. The pulmonary arteries are enlarged consistent with chronic pulmonary hypertension. The heart size is normal. There is no significant mediastinal lymphadenopathy. Mild emphysematous changes are noted diffusely. Atelectasis and mild infiltrates are noted in both lower lobes. No pleural effusions are seen. A 3.5 cm hypodense nodule is noted in the right lobe of thyroid. Impression: 1. No evidence of aortic aneurysm or dissection. 2. COPD with evidence of chronic pulmonary hypertension. 3. Mild bibasilar infiltrates. CTA ABDOMEN: 1 mm axial cuts are obtained from the dome of the liver through the iliac crests with 75 mL Isovue IV contrast. 3D images with coronal and sagittal planar images were reconstructed by me and reviewed simultaneously on the [employer] Workstation. Dose reduction was employed with automated exposure control. FINDINGS: The abdominal aorta is normal in caliber without evidence of aneurysmal dilatation or dissection. The celiac trunk and SMA origins are normal. Single renal arteries are identified bilaterally. There is no evidence of renal artery stenosis. The inferior mesenteric artery remains patent. The liver and spleen are normal. The pancreas and adrenal glands are within normal limits. Both kidneys are visualized in their cortical phase. There is no hydronephrosis or hydroureter. No free fluid is seen within the abdomen. IMPRESSION: 1. There is no evidence of aortic aneurysm or dissection. 2. The mesenteric and renal vessel origins are normal. CTA PELVIS: 1 mm axial cuts are obtained from the iliac crests through the symphysis pubis with 75 mL Isovue IV contrast. 3D images with coronal and sagittal planar images were reconstructed by wi and reviewed simultaneously on the [employer] Workstation. Dose reduction was employed with automated exposure control. FINDINGS: Mild atherosclerotic changes are present in the common iliac arteries bilaterally. However, this does not appear flow-limiting. The common femoral arteries are normal bilaterally. There is no evidence of bowel obstruction. The bladder is normal. No free fluid is seen within the pelvis. Sagittal reconstructed images of the spine demonstrate numerous chronic-appearing compression fractures (T11, L2, L4, and L5). Hip surgeries are noted bilaterally. IMPRESSION: 1. No evidence of aortic aneurysm or dissection. 2. COPD with evidence of chronic pulmonary hypertension. 3. Mild bibasilar infiltrates. 4. Numerous old thoracolumbar compression fractures. Report Dictated on Electronically Signed By: Aaron Manzo MD Electronically Signed Date/Time: 10/23/2023 10:[address] head wo IV contrast [[id number]] Collected: 10/23/232240 Order Status: Completed Updated: 10/23/232243 Narrative: Patient Name: ADORE WALTER : 1935 Exam Date/Time: 10/23/2023 22:27 Procedure: CT HEAD WO IV CONTRAST Ordering Provider: CLAROS COURTNEY Reason For Exam: Mental status change, unknown cause CT BRAIN WITHOUT CONTRAST CLINICAL INDICATION: Mental status change, unknown cause TECHNIQUE: CT scan of the brain without IV contrast. Multiplanar reformations. Dose reduction was employed with automated exposure control. COMPARISON: September,. FINDINGS: No apparent mass or mass effect, hemorrhage, midline shift or hydrocephalus. No evidence of acute cortical infarct. No abnormal, extra-axial fluid or air collection. Patchy low density in the periventricular and subcortical white matter is nonspecific, but may relate to chronic small vessel ischemic change. Mild-moderate, diffuse volume loss. Osseous calvarium grossly intact. Marginal mucosal thickening in the left maxillary sinus and more pronounced mucosal thickening in the sphenoid sinus. Partial opacification of bilateral mastoid sinus. Impression: 1. No acute intracranial findings. 2. Probable chronic ischemic and atrophic changes. 3. Sphenoid and bilateral mastoid sinus disease. Report Dictated on Electronically Signed By: Tutu Arroyo MD Electronically Signed Date/Time: 10/23/2023 10:43 PM EDT XR chest 1 view [[id number]] Collected: 10/23/232146 Order Status: Completed Updated: 10/23/232148 Narrative: Patient Name: ADORE WALTER : 1935 Exam Date/Time: 10/23/2023 21:47 Procedure: XR CHEST 1 VIEW Ordering Provider: CLAROS COURTNEY Reason For Exam: ALTERED MENTAL STATUS CHEST PORTABLE CLINICAL INDICATION: ALTERED MENTAL STATUS TECHNIQUE: Portable chest x-ray(s). COMPARISON: September,. FINDINGS: Patient rotated to the right. Cardiac silhouette prominent, which may be due in part to technique, but stable. Lungs show interstitial prominence or coarsening bilaterally, about the same. No focal consolidation or apparent pneumothorax. Degenerative change again noted in the thoracic spine and bilateral shoulders. Impression: 1. Stable examination. No acute findings. Report Dictated on Electronically Signed By: Tutu Arroyo MD Electronically Signed Date/Time: 10/23/2023 9:47 PM EDT 10/24/23 TTE: Interpretation Summary Left Ventricle: Left ventricle size is normal. Mildly increased wall thickness. Moderate septal thickening. Normal left ventricular systolic function. EF by 2D Simpsons Biplane is 76%. Normal wall motion. Normal diastolic function. Right Ventricle: Right ventricle size is normal. RV basal diameter is 3.6 cm. RV mid diameter is 3.3 cm. Normal systolic function. TAPSE is normal. TAPSE is 2.5 cm. Aortic Valve: Mildly thickened cusps. Mildly calcified cusps. Left, right and noncoronary cusps sclerosis. Mild (1+) regurgitation. Aortic sclerosis/mild stenosis. Mitral Valve: Mildly thickened leaflets. Mild annular calcification (posterior). Trace regurgitation. Pulmonic Valve: Valve structure is normal. Mildly thickened cusps. Left Atrium: Left atrium size is mildly increased (LA volume index 35-41 mL/m2).LA Vol Index A/L is 36 mL/m2. Right Atrium: Not well visualized. Right atrium size is normal. Aorta: Normal sized sinuses of Valsalva. Sinuses of Valsalva diameter is 3.6 cm. Moderately dilated ascending aorta. Ao ascending diameter is 4.0 cm. Pericardium: Evidence of prominent epicardial fat. No pericardial effusion. Comparison Study Information Prior Study There is a prior study available for comparison. Prior study date: 12/12/2020. EF 48%. Echo Findings Left Ventricle Left ventricle size is normal. Mildly increased wall thickness. Moderate septal thickening. Normal left ventricular systolic function. EF by 2D Simpsons Biplane is 76%. Normal wall motion. Normal diastolic function. Right Ventricle Right ventricle size is normal. RV basal diameter is 3.6 cm. RV mid diameter is 3.3 cm. Normal systolic function. TAPSE is normal. TAPSE is 2.5 cm. Left Atrium Left atrium size is mildly increased (LA volume index 35-41 mL/m2).LA Vol Index A/L is 36 mL/m2. Interatrial Septum Interatrial septum was not well visualized. No interatrial shunt visualized on color Doppler. Right Atrium Not well visualized. Right atrium size is normal. Aortic Valve Mildly thickened cusps. Mildly calcified cusps. Left, right and noncoronary cusps sclerosis. Mild (1+) regurgitation. Aortic sclerosis/mild stenosis. Mitral Valve Mildly thickened leaflets. Mild annular calcification (posterior). Trace regurgitation. No stenosis noted. Tricuspid Valve Not well visualized. Valve structure is normal. Trace regurgitation. Pulmonic Valve Valve structure is normal. Mildly thickened cusps. Mild (1+) regurgitation. Aorta Normal sized sinuses of Valsalva. Sinuses of Valsalva diameter is 3.6 cm. Moderately dilated ascending aorta. Ao ascending diameter is 4.0 cm. IVC/Hepatic Veins IVC is mildly dilated. IVC diameter is dilated and decreases greater than 50% during inspiration; therefore the estimated right atrial pressure is intermediate (~8 mmHg). Pericardium Evidence of prominent epicardial fat. No pericardial effusion. Study Details Image quality: poor. Heart rate: 63 bpm. Blood pressure: 93/47 mmHg. Technical qualifiers: Technically difficult study with poor endocardial visualization. Ultrasound enhancement agent was given to enhance imaging. Antimicrobials, Start/End Dates: Pip/tazo Ceftr 10/25- Oseltamivir 10/23- Vanco Impression: Septic shock. Improved. Streptococcus parasanguinis bacteremia. Pneumonia due to Influenza A. COPD with evidence of chronic pulmonary hypertension. NSTEMI. Plan: Pt sick due to septic shock due to streptococcus parasanguinis bacteremia and Influenza A pneumonia. Afebrile, hemodynamically ok. Off pressor. Blood cxs were repted on 10/25, will follow. 2D ECHO did not detect any vegetation. Continue ceftriaxone for 2 weeks from -neg cx date, till 11/10/23. On 11/17/23, blood cx x2 to document sterility. Continue oseltamivir for a total of 5 days. OPAT in chart. High level complexity medical decision making. Please call with any further question. Total time 50 minutes on this day of encounter includes counseling, coordinating plan of care, record and documentation review before and after visit including documentation and time not explicitly included on EMR time stamp for accounting for open encounter. Images from the original note were not included. Hospitalist Progress Note 10/28/2023 [phone]: Please page me ([phone]) for patient care issues. [phone]: Please page [facility] Hospitalist for any issues. Subjective: Admit Date: 10/23/2023 PCP: Chris Arora DO (Inactive) Room#: -255/[facility] A Interval History: No overnight issues. Denies chest pain, sob, abdominal pain, nausea, vomiting, diarrhea, constipation, fevers, or chills. Reports feeling well. Adult diet Easy to Chew 24HR INTAKE/OUTPUT: Intake/Output Summary (Last 24 hours) at 10/28/2023 1055 Last data filed at 10/28/2023 0939 Gross per 24 hour Intake 980 ml Output 500 ml Net 480 ml Past Medical History: Past Medical History: Diagnosis Date CHF (congestive heart failure) ([facility]) COPD (chronic obstructive pulmonary disease) ([facility]) LABS: CBC: Recent Labs 10/26/23 0500 10/27/23 0320 10/28/23 0449 WBC 6.6 5.1 4.3 RBC 3.64* 3.45* 3.56* HGB 10.5* 10.0* 10.4* HCT 32.1* 30.4* 31.3* MCV 88.2 88.1 87.9 RDW 14.5 14.4 14.7 PLT 208 195 166 BMP: Recent Labs 10/26/23 0500 10/27/23 0320 10/28/23 0449 NA 135 136 136 K 3.2* 3.4* 3.5 CL 107 110* 110* CO2 BUN 20* 19* 16 CREATININE 1.00 0.85 0.89 GLUCOSE 108* 84 73 CALCIUM 8.3* 8.0* 8.1* ANIONGAP 5 3 1* LIVER PROFILE: Recent Labs 10/26/23 0500 10/27/23 0320 10/28/23 0449 AST 37 43 46 ALT 16 21 26 BILITOT 0.6 0.5 0.5 ALKPHOS 49 42 41 PROT 5.3* 4.7* 4.5* PT/INR: No results for input(s): "PROTIME", "INR" in the last 72 hours. CARDIAC ENZYMES: No results for input(s): "TROPONINI" in the last 72 hours. Procalcitonin: No results found for: "PROCAL" COVID-19 PCR: No results for input(s): "COVID19" in the last 72 hours. Objective: Vitals: BP 143/63 (BP Location: Right arm, Patient Position: Lying) Pulse 63 Temp 36.4 C (97.6 F) (Temporal) Resp 20 Ht 5' 1" (1.549 m) Wt 142 lb 13.7 oz (64.8 kg) SpO2 94% BMI 26.99 kg/m Pulse Ox: SpO2 Av.8 % Min: 93 % Max: 94 % Supplemental O2: O2 Flow Rate (L/min): 2 L/min General appearance: No apparent distress, appears stated age and cooperative with exam. Elderly female in NAD Respiratory: CTA BL Cardiovascular: Regular rate and rhythm with no murmur Abdomen: Soft, non-tender, non-distended Skin: Skin color, texture, turgor normal. No rashes or lesions. Distal pulses intact in BL LE, no edema in BL LE. Neurologic: grossly non-focal. Medications: atorvastatin, 10 mg, Oral, Nightly carvedilol, 12.5 mg, Oral, BID WC cefTRIAXone, 2,000 mg, IntraVENous, q24h enoxaparin, 30 mg, SubCUTAneous, Daily ferrous sulfate, 325 mg, Oral, Daily with breakfast lisinopril, 5 mg, Oral, Daily oseltamivir, 30 mg, Oral, BID pantoprazole, 40 mg, Oral, qAM AC sodium chloride 0.9%, 10 mL, IntraVENous, 2 times per day sodium chloride 0.9%, 5-40 mL, IntraCATHeter, q8h Assessment Sepsis with shock, POA Streptococcus parasanguinis bacteremia Influenza A CAP Sepsis resolved, off vasopressors ID following, echo negative for veg Abx per ID, planning 2 weeks of antibiotics, repeat cultures reviewed Tamiflu for 5 day course, completed on 10/28/23 PICC ordered Acute COPD exacerbation with hypoxic respiratory failure Patient required supplemental O2 in the ICU Weaned as tolerated, currently stable on RA Normocytic anemia Stable CBC, daily CBC Iron supplementation HLD Statin HTN Home BP medications resumed Medical Decision Making 10/27/23: Patient presented with sepsis and shock with hypotension requiring ICU admission with vasopressor support. Patient found to have Influenza A CAP as well as streptococcus parasnaguinis bacteremia. Patient on broad spectrum abx, sepsis improved, weaned off pressors, transferred out of ICU on 10/28/23. Patient O2 requirements improved and was weaned to RA. Currently on 2 weeks of abx per ID recs as well as 5 day course of tamiflu for Flu A PNA. Home medications reviewed and resumed as indicated. PT/OT eval and treat, plan for patient to return to [facility]. CM following. 10/28/23: patient repeat blood cultures negative, will need 2 weeks of IV abx with Rocephin 2g daily from date of negative blood cultures on 09/27/23. Through 11/08/23. PICC ordered, likely not to be placed until tomorrow. Stable on RA. Tamiflu to complete course today. Discussed with CM. Repeat labs in the AM. Labs and vitas reviewed and stable. Plan for patient to return to [facility] on discharge. -am labs, replace lytes prn -increase activity -resume home medications as indicated -DVT prophylaxis: [x] Lovenox [] Heparin [] SCDs [x] Encourage ambulation [] Already on Anticoagulation Anticipated Discharge - Date - 10/29/23 - Location - Skilled Facility - Pending the following - auth, PICC line, abx Toxic drug monitoring/narrow therapeutic index drug monitoring : # Drug name : # Route administered : # Method of monitoring : Extended Emergency Contact Information Primary Emergency Contact: Popeye Walter Relation: Child Secondary Emergency Contact: Ketan Walter Relation: Spouse Paco Casarez, [facility] PAGER: Epic chat Images from the original note were not included. [facility] - Infectious Diseases Attending Progress Note Subjective: Follow up for septic shock, streptococcus parasanguinis bacteremia, and pneumonia due to influenza A. She was alert, sitting on bed, felt better; denied cough, SOB, pain, dysuria, tooth or gum pain, has dentures; blood cxs grew strep parasanguinis, she appeared debilitated and ill. She was admitted to ICU on 10/24/23 from [facility] with complaints of change in mentation and hypotension. In ED, on presentation, her BP was 62/47, had syncopal episode once moved to ED cot, had episodes of consciousness and immediatly falling back to sleep, labs showed elevated SCr 2.17, hypoalbuminemia (2.9), pyuria (>100 wbc); she remained hypotensive despite LR bolus, she was started on Levophed, heparin gtt was started for NSTEMI. She was examined; notes, labs and imaging were reviewed and treatment plan was discussed. Objective: Vitals: Patient Vitals for the past 24 hrs: BP Temp Temp src Pulse Resp SpO2 10/27/23 1251 131/74 -- -- 62 19 94 % 10/27/23 0850 143/68 36.6 C (97.9 F) Temporal 63 20 96 % 10/26/23 2031 130/74 36.7 C (98 F) Temporal 59 18 93 % 10/26/23 1940 119/66 36.4 C (97.6 F) Temporal 65 18 94 % Physical Exam Vitals and nursing note reviewed. Constitutional: Appearance: She is ill-appearing. HENT: Head: Normocephalic and atraumatic. Nose: Nose normal. Mouth/Throat: Mouth: Mucous membranes are moist. Pharynx: Oropharynx is clear. Eyes: Extraocular Movements: Extraocular movements intact. Pupils: Pupils are equal, round, and reactive to light. Cardiovascular: Rate and Rhythm: Normal rate and regular rhythm. Pulmonary: Effort: Pulmonary effort is normal. Breath sounds: No wheezing. Comments: Coarse breath sounds bilaterally. Abdominal: General: Abdomen is flat. Bowel sounds are normal. Palpations: Abdomen is soft. Tenderness: There is no abdominal tenderness. Musculoskeletal: General: No swelling or tenderness. Normal range of motion. Cervical back: Normal range of motion and neck supple. Skin: General: Skin is warm and dry. Findings: No erythema. Neurological: General: No focal deficit present. Mental Status: She is alert and oriented to person, place, and time. Psychiatric: Mood and Affect: Mood normal. Behavior: Behavior normal. Labs: Recent Labs 10/25/23 0403 10/26/23 0500 10/27/23 0320 NA 133* 135 136 K 3.3* 3.2* 3.4* CL 108* 107 110* CO2 18* 24 23 BUN 26* 20* 19* CREATININE 1.27* 1.00 0.85 GLUCOSE 129* 108* 84 CALCIUM 8.3* 8.3* 8.0* PROT 5.4* 5.3* 4.7* BILITOT 0.6 0.6 0.5 ALKPHOS 56 49 42 AST 30 37 43 ALT 13 16 21 Recent Labs 10/25/23 0403 10/26/23 0500 10/27/23 0320 WBC 8.1 6.6 5.1 HGB 10.9* 10.5* 10.0* HCT 32.7* 32.1* 30.4* PLT 228 208 195 LYMPHOPCT 14.4* 15.6 32.5 MONOPCT 5.2 4.5* 9.6 BASOPCT 0.1 0.2 0.2 NEUTROABS 6.5 5.2 2.9 Micro: No results for input(s): "COVID19" in the last 72 hours. Collected Updated Procedure Result Status 10/26/2023 0915 10/27/2023 1301 Blood culture Site #1 - Assess for effectiveness of treatment [[id number]] Blood, Venous Preliminary result Component Value Blood Culture No growth at 24 hours P 10/26/2023 0915 10/27/2023 1301 Blood culture Site #2 - Assess for effectiveness of treatment [[id number]] Blood, Venous Preliminary result Component Value Blood Culture No growth at 24 hours P 10/25/2023 1500 10/25/2023 2302 Respiratory culture and Stain [[id number]] (Abnormal) Sputum Final result Component Value Respiratory culture Culture canceled due to poor specimen quality. Recollect if clinically indicated. Gram Stain Result Moderate Epithelial cells per low power field Abnormal Few Polymorphonuclear leukocytes per low power field Abnormal Few Gram positive cocci Abnormal Rare Gram positive bacilli Abnormal Smear contains >= 15 squamous cells per low power field, suggestive of poor quality. Culture not performed. Please re-collect if clinically indicated. Abnormal 10/25/2023 1500 10/25/2023 2305 MRSA by PCR [[id number]] ESwab from Nasal Final result Component Value Staphylococcus aureus Not Detected mecA gene Not Detected 10/24/2023 0644 10/24/2023 1033 Legionella and Streptococcus Urine Antigen [[id number]] Urine, Clean Catch Final result Component Value Legionella pneumophila Ag Not Detected Streptococcus pneumoniae Ag Not Detected 10/24/2023 0644 10/25/2023 0957 Urine culture [[id number]] Urine, Clean Catch Final result Component Value Urine Culture Multiple species present; probable contamination; repeat suggested 10/24/2023 0022 10/25/2023 1055 Blood culture Site #1 - Suspected Infection [[id number]] (Abnormal) Blood, Venous Preliminary result Component Value Blood Culture Streptococcus parasanguinis Panic P 10/24/2023 0022 10/26/2023 0759 Blood culture Site #2 - Suspected Infection [[id number]] (Abnormal) Blood, Venous Final result Component Value Blood Culture Streptococcus parasanguinis Panic 10/24/2023 0022 10/24/2023 2119 Blood Culture Identification - Anaerobic [[id number]] (Abnormal) Blood, Venous Final result Component Value Streptococcus species Detected Abnormal 10/23/2023 2250 10/24/2023 0331 Respiratory Pathogens Panel by PCR [[id number]] (Abnormal) Swab from Nasopharynx Final result Component Value SARS-CoV-2 Not Detected Adenovirus Not Detected Coronavirus HKU1 Not Detected Coronavirus NL63 Not Detected Coronavirus 229E Not Detected Coronavirus OC43 Not Detected Human Metapneumovirus Not Detected Human Rhinovirus/Enterovirus Not Detected Influenza A Detected Abnormal Influenza B Not Detected Parainfluenza 1 Not Detected Parainfluenza 2 Not Detected Parainfluenza 3 Not Detected Parainfluenza 4 Not Detected Respiratory Syncytial Virus Not Detected Bordetella pertussis Not Detected Bordetella parapertussis Not Detected Chlamydia pneumoniae Not Detected Mycoplasma pneumoniae Not Detected Lines: PIV Radiography/Echo/Other: Procedure Component Value Units Date/Time XR chest 1 view [[id number]] Collected: 10/24/23612 Order Status: Completed Updated: 10/24/23614 Narrative: Patient Name: ADORE WALTER : 1935 Exam Date/Time: 10/24/2023 02:51 Procedure: XR CHEST 1 VIEW Ordering Provider: ALONSO MANSUR Reason For Exam: PROCEDURES CHEST - PORTABLE: CLINICAL INDICATION: Central venous catheter placement TECHNIQUE: Portable AP COMPARISON: One day ago FINDINGS: Life support devices: Right jugular venous catheter with its tip in the region of the superior vena cava Heart/Mediastinum: Unchanged Lungs/Pleura: Reticular opacities remain throughout the lungs are there is no pneumothorax. Costophrenic angles are sharp. Impression: Central venous catheter in adequate position without pneumothorax. Report Dictated on Electronically Signed By: Aaron Keller MD Electronically Signed Date/Time: 10/24/2023 6:14 AM EDT CTA chest abdomen pelvis angiogram w and/or wo contrast [[id number]] Collected: 10/23/232242 Order Status: Completed Updated: 10/23/232317 Addenda: Patient Name: ADORE WALTER : 1935 Exam Date/Time: 10/23/2023 22:29 Procedure: CT CHEST ABDOMEN PELVIS ANGIOGRAM W AND/OR WO CONTRAST Ordering Provider: AREVALO MICHAEL Reason For Exam: NSTEMI, concern for dissection vs ruptured aortic aneurysm --------ADDENDUM #1 -------- Follow-up thyroid ultrasound is recommended for incidental thyroid nodule that is equal to or greater than 1.5 cm in patients 35 years of age or older. Patients with comorbidities or limited life expectancy should not have further evaluation of the thyroid nodule, unless it is warranted clinically, or specifically requested by the patient or referring physician. Reference: Mile Fraser al "Managing incidental thyroid nodules detected on imaging: White paper of the ACR incidental thyroid findings committee" J Am Juju Radiol 2015;12:143-150. Report Dictated on Electronically Signed By: Aaron Manzo MD Electronically Signed Date/Time: 10/23/2023 11:17 PM EDT --------ORIGINAL REPORT -------- CLINICAL INFORMATION: Progressive chest and abdominal pain. Abdominal pain extending into the pelvis. Evaluate for aortic dissection. CTA CHEST: Images are first obtained prior to IV contrast. After 75 mL Isovue IV contrast, 1 mm axial cuts through the chest are obtained. 3D reconstructions are performed by me and reviewed simultaneously on the separate [employer] workstation. Sagittal and coronal reconstructions are also reviewed. Dose reduction was employed with automated exposure control. FINDINGS: A good contrast bolus is identified within the thoracic aorta. The ascending, arch, and descending thoracic aorta are normal in caliber without evidence of aneurysm or dissection. There are no filling defects to suggest pulmonary embolism. The pulmonary arteries are enlarged consistent with chronic pulmonary hypertension. The heart size is normal. There is no significant mediastinal lymphadenopathy. Mild emphysematous changes are noted diffusely. Atelectasis and mild infiltrates are noted in both lower lobes. No pleural effusions are seen. A 3.5 cm hypodense nodule is noted in the right lobe of thyroid. IMPRESSION: 1. No evidence of aortic aneurysm or dissection. 2. COPD with evidence of chronic pulmonary hypertension. 3. Mild bibasilar infiltrates. CTA ABDOMEN: 1 mm axial cuts are obtained from the dome of the liver through the iliac crests with 75 mL Isovue IV contrast. 3D images with coronal and sagittal planar images were reconstructed by me and reviewed simultaneously on the [employer] Workstation. Dose reduction was employed with automated exposure control. FINDINGS: The abdominal aorta is normal in caliber without evidence of aneurysmal dilatation or dissection. The celiac trunk and SMA origins are normal. Single renal arteries are identified bilaterally. There is no evidence of renal artery stenosis. The inferior mesenteric artery remains patent. The liver and spleen are normal. The pancreas and adrenal glands are within normal limits. Both kidneys are visualized in their cortical phase. There is no hydronephrosis or hydroureter. No free fluid is seen within the abdomen. IMPRESSION: 1. There is no evidence of aortic aneurysm or dissection. 2. The mesenteric and renal vessel origins are normal. CTA PELVIS: 1 mm axial cuts are obtained from the iliac crests through the symphysis pubis with 75 mL Isovue IV contrast. 3D images with coronal and sagittal planar images were reconstructed by me and reviewed simultaneously on the [employer] Workstation. Dose reduction was employed with automated exposure control. FINDINGS: Mild atherosclerotic changes are present in the common iliac arteries bilaterally. However, this does not appear flow-limiting. The common femoral arteries are normal bilaterally. There is no evidence of bowel obstruction. The bladder is normal. No free fluid is seen within the pelvis. Sagittal reconstructed images of the spine demonstrate numerous chronic-appearing compression fractures (T11, L2, L4, and L5). Hip surgeries are noted bilaterally. IMPRESSION: 1. No evidence of aortic aneurysm or dissection. 2. COPD with evidence of chronic pulmonary hypertension. 3. Mild bibasilar infiltrates. 4. Numerous old thoracolumbar compression fractures. Report Dictated on Electronically Signed By: Aaron Manzo MD Electronically Signed Date/Time: 10/23/2023 10:51 PM EDT Signed: 10/23/232316 by Aaron Manzo MD Narrative: Patient Name: ADORE WALTER : 1935 Exam Date/Time: 10/23/2023 22:29 Procedure: CT CHEST ABDOMEN PELVIS ANGIOGRAM W AND/OR WO CONTRAST Ordering Provider: AREVALO MICHAEL Reason For Exam: NSTEMI, concern for dissection vs ruptured aortic aneurysm CLINICAL INFORMATION: Progressive chest and abdominal pain. Abdominal pain extending into the pelvis. Evaluate for aortic dissection. CTA CHEST: Images are first obtained prior to IV contrast. After 75 mL Isovue IV contrast, 1 mm axial cuts through the chest are obtained. 3D reconstructions are performed by wi and reviewed simultaneously on the separate [employer] workstation. Sagittal and coronal reconstructions are also reviewed. Dose reduction was employed with automated exposure control. FINDINGS: A good contrast bolus is identified within the thoracic aorta. The ascending, arch, and descending thoracic aorta are normal in caliber without evidence of aneurysm or dissection. There are no filling defects to suggest pulmonary embolism. The pulmonary arteries are enlarged consistent with chronic pulmonary hypertension. The heart size is normal. There is no significant mediastinal lymphadenopathy. Mild emphysematous changes are noted diffusely. Atelectasis and mild infiltrates are noted in both lower lobes. No pleural effusions are seen. A 3.5 cm hypodense nodule is noted in the right lobe of thyroid. Impression: 1. No evidence of aortic aneurysm or dissection. 2. COPD with evidence of chronic pulmonary hypertension. 3. Mild bibasilar infiltrates. CTA ABDOMEN: 1 mm axial cuts are obtained from the dome of the liver through the iliac crests with 75 mL Isovue IV contrast. 3D images with coronal and sagittal planar images were reconstructed by me and reviewed simultaneously on the [employer] Workstation. Dose reduction was employed with automated exposure control. FINDINGS: The abdominal aorta is normal in caliber without evidence of aneurysmal dilatation or dissection. The celiac trunk and SMA origins are normal. Single renal arteries are identified bilaterally. There is no evidence of renal artery stenosis. The inferior mesenteric artery remains patent. The liver and spleen are normal. The pancreas and adrenal glands are within normal limits. Both kidneys are visualized in their cortical phase. There is no hydronephrosis or hydroureter. No free fluid is seen within the abdomen. IMPRESSION: 1. There is no evidence of aortic aneurysm or dissection. 2. The mesenteric and renal vessel origins are normal. CTA PELVIS: 1 mm axial cuts are obtained from the iliac crests through the symphysis pubis with 75 mL Isovue IV contrast. 3D images with coronal and sagittal planar images were reconstructed by me and reviewed simultaneously on the [employer] Workstation. Dose reduction was employed with automated exposure control. FINDINGS: Mild atherosclerotic changes are present in the common iliac arteries bilaterally. However, this does not appear flow-limiting. The common femoral arteries are normal bilaterally. There is no evidence of bowel obstruction. The bladder is normal. No free fluid is seen within the pelvis. Sagittal reconstructed images of the spine demonstrate numerous chronic-appearing compression fractures (T11, L2, L4, and L5). Hip surgeries are noted bilaterally. IMPRESSION: 1. No evidence of aortic aneurysm or dissection. 2. COPD with evidence of chronic pulmonary hypertension. 3. Mild bibasilar infiltrates. 4. Numerous old thoracolumbar compression fractures. Report Dictated on Electronically Signed By: Aaron Manzo MD Electronically Signed Date/Time: 10/23/2023 10:[address] head wo IV contrast [[id number]] Collected: 10/23/232240 Order Status: Completed Updated: 10/23/232243 Narrative: Patient Name: ADORE WALTER : 1935 Exam Date/Time: 10/23/2023 22:27 Procedure: CT HEAD WO IV CONTRAST Ordering Provider: CLAROS COURTNEY Reason For Exam: Mental status change, unknown cause CT BRAIN WITHOUT CONTRAST CLINICAL INDICATION: Mental status change, unknown cause TECHNIQUE: CT scan of the brain without IV contrast. Multiplanar reformations. Dose reduction was employed with automated exposure control. COMPARISON: September,. FINDINGS: No apparent mass or mass effect, hemorrhage, midline shift or hydrocephalus. No evidence of acute cortical infarct. No abnormal, extra-axial fluid or air collection. Patchy low density in the periventricular and subcortical white matter is nonspecific, but may relate to chronic small vessel ischemic change. Mild-moderate, diffuse volume loss. Osseous calvarium grossly intact. Marginal mucosal thickening in the left maxillary sinus and more pronounced mucosal thickening in the sphenoid sinus. Partial opacification of bilateral mastoid sinus. Impression: 1. No acute intracranial findings. 2. Probable chronic ischemic and atrophic changes. 3. Sphenoid and bilateral mastoid sinus disease. Report Dictated on Electronically Signed By: uTtu Arroyo MD Electronically Signed Date/Time: 10/23/2023 10:43 PM EDT XR chest 1 view [[id number]] Collected: 10/23/232146 Order Status: Completed Updated: 10/23/232148 Narrative: Patient Name: ADORE WALTER : 1935 Exam Date/Time: 10/23/2023 21:47 Procedure: XR CHEST 1 VIEW Ordering Provider: CLAROS COURTNEY Reason For Exam: ALTERED MENTAL STATUS CHEST PORTABLE CLINICAL INDICATION: ALTERED MENTAL STATUS TECHNIQUE: Portable chest x-ray(s). COMPARISON: September,. FINDINGS: Patient rotated to the right. Cardiac silhouette prominent, which may be due in part to technique, but stable. Lungs show interstitial prominence or coarsening bilaterally, about the same. No focal consolidation or apparent pneumothorax. Degenerative change again noted in the thoracic spine and bilateral shoulders. Impression: 1. Stable examination. No acute findings. Report Dictated on Electronically Signed By: Tutu Arroyo MD Electronically Signed Date/Time: 10/23/2023 9:47 PM EDT 10/24/23 TTE: Interpretation Summary Left Ventricle: Left ventricle size is normal. Mildly increased wall thickness. Moderate septal thickening. Normal left ventricular systolic function. EF by 2D Simpsons Biplane is 76%. Normal wall motion. Normal diastolic function. Right Ventricle: Right ventricle size is normal. RV basal diameter is 3.6 cm. RV mid diameter is 3.3 cm. Normal systolic function. TAPSE is normal. TAPSE is 2.5 cm. Aortic Valve: Mildly thickened cusps. Mildly calcified cusps. Left, right and noncoronary cusps sclerosis. Mild (1+) regurgitation. Aortic sclerosis/mild stenosis. Mitral Valve: Mildly thickened leaflets. Mild annular calcification (posterior). Trace regurgitation. Pulmonic Valve: Valve structure is normal. Mildly thickened cusps. Left Atrium: Left atrium size is mildly increased (LA volume index 35-41 mL/m2).LA Vol Index A/L is 36 mL/m2. Right Atrium: Not well visualized. Right atrium size is normal. Aorta: Normal sized sinuses of Valsalva. Sinuses of Valsalva diameter is 3.6 cm. Moderately dilated ascending aorta. Ao ascending diameter is 4.0 cm. Pericardium: Evidence of prominent epicardial fat. No pericardial effusion. Comparison Study Information Prior Study There is a prior study available for comparison. Prior study date: 12/12/2020. EF 48%. Echo Findings Left Ventricle Left ventricle size is normal. Mildly increased wall thickness. Moderate septal thickening. Normal left ventricular systolic function. EF by 2D Simpsons Biplane is 76%. Normal wall motion. Normal diastolic function. Right Ventricle Right ventricle size is normal. RV basal diameter is 3.6 cm. RV mid diameter is 3.3 cm. Normal systolic function. TAPSE is normal. TAPSE is 2.5 cm. Left Atrium Left atrium size is mildly increased (LA volume index 35-41 mL/m2).LA Vol Index A/L is 36 mL/m2. Interatrial Septum Interatrial septum was not well visualized. No interatrial shunt visualized on color Doppler. Right Atrium Not well visualized. Right atrium size is normal. Aortic Valve Mildly thickened cusps. Mildly calcified cusps. Left, right and noncoronary cusps sclerosis. Mild (1+) regurgitation. Aortic sclerosis/mild stenosis. Mitral Valve Mildly thickened leaflets. Mild annular calcification (posterior). Trace regurgitation. No stenosis noted. Tricuspid Valve Not well visualized. Valve structure is normal. Trace regurgitation. Pulmonic Valve Valve structure is normal. Mildly thickened cusps. Mild (1+) regurgitation. Aorta Normal sized sinuses of Valsalva. Sinuses of Valsalva diameter is 3.6 cm. Moderately dilated ascending aorta. Ao ascending diameter is 4.0 cm. IVC/Hepatic Veins IVC is mildly dilated. IVC diameter is dilated and decreases greater than 50% during inspiration; therefore the estimated right atrial pressure is intermediate (~8 mmHg). Pericardium Evidence of prominent epicardial fat. No pericardial effusion. Study Details Image quality: poor. Heart rate: 63 bpm. Blood pressure: 93/47 mmHg. Technical qualifiers: Technically difficult study with poor endocardial visualization. Ultrasound enhancement agent was given to enhance imaging. Antimicrobials, Start/End Dates: Pip/tazo 10/23- Ceftr 10/25- Oseltamivir 10/23- Vanco 10/23- Impression: Septic shock. Streptococcus parasanguinis bacteremia. Pneumonia due to Influenza A. COPD with evidence of chronic pulmonary hypertension. NSTEMI. Plan: Pt sick due to septic shock due to streptococcus parasanguinis bacteremia and Influenza A pneumonia. Afebrile, hemodynamically ok. Off pressor. Blood cxs were repted on 10/25, will follow. 2D ECHO did not describe any vegetation. Continue ceftriaxone for 2 weeks from -neg cx date and oseltamivir for a total of 5 days. Rept sputum cx. High level complexity medical decision making. Will follow. Total time 50 minutes on this day of encounter includes counseling, coordinating plan of care, record and documentation review before and after visit including documentation and time not explicitly included on EMR time stamp for accounting for open encounter. Nutrition Assessment Type and Reason for Visit: Reassess Nutrition Recommendations/Plan: Continue diet as ordered consistency per TENNIS PLAYER -currently on Easy to Chew Consider appetite stimulant if poor appetite persists Per mnt protocol will order Ensure Clear apple bid (240 kcal, 8 gm protein) discontinue Ensure compact and magic cup per pt request doesn't like RD to monitor po intake, labs, weight; follow up weekly Malnutrition Assessment: Malnutrition Status: At risk for malnutrition (Comment) (age, decreased appetite) Context: Acute Illness Findings of the 6 clinical characteristics of malnutrition: Energy Intake: 75% or less of estimated energy requirements for 7 or more days Weight Loss: No significant weight loss Body Fat Loss: No significant body fat loss Muscle Mass Loss: No significant muscle mass loss (difficult to assess ?baseline) Fluid Accumulation: Mild Extremities Consumer Insights Specialist Strength: Not Performed Nutrition Assessment: sepsis improved, pt transferred out of ICU 10/26/23. Pt reports she didn't eat lunch and has no appetite, offered to place another meal order or obtain snacks pt declines. Pt states she dislikes magic cup and milkly Ensure supplements -agreed to try apple Ensure Clear. TENNIS PLAYER 10/26 recommedning Reg solids and thin liquids Estimated Daily Nutrient Needs: Energy Requirements Based On: Kcal/kg Weight Used for Energy Requirements: [place] Weight for Energy Calculation (kg): 48 kg Total Energy Requirements (kcals/day): 4390-1691 (25-30) Weight Used for Protein Requirements: [place] Weight in Kg Used for Protein Requirements: 48 kg Estimated Total Protein (g/day): 48-58 (1.0-1.2) Estimated Daily Total Fluid (ml/day): per MD Nutrition Related Findings: BLE nonpitting edema, i/0 +250, +bm soft /25, k+ 3.4 /phos 1.7, cl 110, alb 2.5 Wound Type: None (fragile skin, bruising) Date/Time Weight 10/24/23 62.1 kg (137 lb) 10/24/23 62.2 kg (137 lb 2 oz) 10/23/23 59 kg (130 lb) Current Nutrition Therapies: Adult diet Easy to Chew Current Oral Intake Average Meal Intake: 0%, 26-50% Average Supplements Intake: Refusing to take Anthropometric Measures: Height: 154.9 cm (5' 1") Current Body Weight: 62.1 kg (137 lb) Weight Source: Bed Scale Admission Body Weight: 62.1 kg (137 lb) (stated) [place] Body Weight (lbs) (Calculated): 105 lbs [place] Body Weight (Kg) (Calculated): 48 kg % [place] Body Weight (Calculated): 130.5 % BMI (kg/m2) (Calculated): 25.9 BMI Categories: Normal Weight (BMI 22.0 to 24.9) age over 65 Nutrition Diagnosis: Increased nutrient needs related to inadequate protein-energy intake as evidenced by poor intake prior to admission, intake 26-50% Nutrition Interventions: Nutrition Education/Counseling: No recommendation at this time Coordination of Nutrition Care: Continue to monitor while inpatient, Speech Therapy Plan of Care discussed with: patient Goals: Previous Goal Met: No Progress toward Goal(s) Goals: PO intake 75% or greater, prior to discharge Nutrition Monitoring and Evaluation: Behavioral-Environmental Outcomes: None Identified Food/Nutrient Intake Outcomes: Food and Nutrient Intake, Supplement Intake Physical Signs/Symptoms Outcomes: Biochemical Data, Chewing or Swallowing, GI Status, Nausea or Vomiting, Fluid Status or Edema, Hemodynamic Status, Nutrition Focused Physical Findings, Skin, Weight Discharge Planning: Continue current diet Carla Pool RD Contact: *[phone] or via Secure Chat Images from the original note were not included. OCCUPATIONAL THERAPY [facility] Treatment Note Name/MRN: Adore Walter ([id number]) Date of : 1935 Age: 88 y.o. Room/Bed: B2-255/B2-255 A Visit #: 1 out of 7 visits [facility]charge Recommendation[facility] Prior Level of Function ADL Assistance: Needs Assist Ambulation Assistance: Non-Ambulatory Transfer Assistance: Needs Assist Assessment Pt tolerated session fair, continues to be motivated to work with therapy. Pt completed bed mobility with SBA for supine to sit, and Mod Ax2 for sit to supine. Pt completed x3 ~75- 50% STS with Max Ax2. Pt is progressing with POC but is still below baseline and is a high fall risk. Pt would benefit from continued OT to improve activity tolerance, balance, and strength needed for improved occupational performance. Pt is recommended for SNF at D/C Subjective Pt supine in bed, pleasant and agreeable. Per Rn, pt okay to see Pain: Pt denies any current pain. Medical Precautions: Droplet Proper PPE donned/doffed in accordance with facility standards. Fall Risk: Cavazos Fall Risk Score: 35 (Medium Risk) Precautions/Restrictions: N/A Family/Caregiver Present: none Objective ADLs Grooming: SBA Pt completed hair brushing while seated EOB with SBA. Pt with minor difficulty grasping comb due to arthritis in hands, SBA for sitting balance Bed Mobility Supine to sit: SBA Sit to supine: Mod Assist, x2 Person Assist Rolling to right: Mod Assist Rolling to left: Mod Assist Scooting: Mod Assist, x2 Person Assist Pt completed supine to sit with HOB elevated, use of bed rails and SBA, no hands on assist required. Pt required Mod Ax2 to return to supine due to hip positioning being too close to EOB. Pt required Mod Ax1 to roll L<>R, Mod Ax2 with draw pads to scoot to HOB Transfers/Mobility Sit to stand: Max Assist, x2 Person Assist Stand to sit: Max Assist, x2 Person Assist Sitting balance: SBA Standing balance: Max Assist, x2 Person Assist Pt attempting x3 STS from EOB intially with FWW then attempted with therapists anterior. Pt attempted STS with Max Ax2, able to achieve ~75% clearance on first transfer and ~50% on remaining. Pt with limited diana knee flexion, and with c/o shoulder blade discomfort during transfers from gait belt Device(s) used: front wheeled walker and hospital bed Cognition - Insights: fully aware of deficits WFL Plan Continue acute OT per plan of care. Safety/Education Safety Safety Devices in place: All fall risk precautions in place, call light within reach, left in bed, gait belt, patient at risk for falls, nurse notified, and no alarms engaged upon entry Restraints: No Education Education Given To: patient Education Provided: OT Role, Plan of Care, ADL Adaptive Strategies, Transfer Training, Equipment, Fall Prevention Education, and Discharge Recommendations Education Method: Verbal, Demonstration, and Teach Back Barriers to Learning: None Education Outcome: Verbalized Understanding, Demonstrated Understanding, and Continued Education Needed AM-PAC AM-PAC Inpatient Daily Activity Raw Score: 13 ADL Inpatient CMS G-Code Modifier: CL Goals Patient Stated Goal: to return to SNF Encounter Problems Encounter Problems (Active) Balance Patient will tolerate standing for 2 minutes with mod A at fww to allow increased independence in ADLs. (Slowly Progressing) Start: 10/26/23 Expected End: 11/09/23 Patient will maintain static sitting balance for 8 minutes with modified independence in order to demonstrate improved postural control and prepare for out of bed mobility. (Progressing) Start: 10/26/23 Expected End: 11/09/23 Dressing Upper Extremities Patient will complete upper body Adls with SBA. (Not Addressed) Start: 10/26/23 Expected End: 11/09/23 Dressings Lower Extremities Patient will complete lower body ADLs with mod A. (Not Addressed) Start: 10/26/23 Expected End: 11/09/23 Mobility Patient will increase ROM/strength of BUE to be able to increase independence in ADLs. (Not Addressed) Start: 10/26/23 Expected End: 11/09/23 Toileting Patient will complete toileting tasks at bedside commode with mod assist. (Not Addressed) Start: 10/26/23 Expected End: 11/09/23 Transfers Patient will complete functional transfer with rolling walker with mod assist in order to prepare for ambulation. (Progressing) Start: 10/26/23 Expected End: 11/09/23 Patient will perform bed mobility with min assist in order to improve independence and prepare for out of bed mobility. (Progressing) Start: 10/26/23 Expected End: 11/09/23 Therapy Time Individual Co-treatment Time In 1051 Time Out 1110 Minutes 19 Timed Code Treatment Minutes: 19 Minutes (1 Ther Act) JR Murdock Images from the original note were not included. PHYSICAL THERAPY [facility] Treatment Note Name/MRN: Adore Walter ([id number]) Date of : 1935 Age: 88 y.o. Room/Bed: B2255/B2255 A Visit #: 1 out of 7 visits Discharge Recommendation: ECF with PT Other: TBD at next level of care Prior Level of Function ADL Assistance: Needs Assist Ambulation Assistance: Non-Ambulatory Transfer Assistance: Needs Assist and neyda lift - pt reports need for neyda lift 2x a week for transfer to shower and able to efficiency engineer the shower with assist with grab bar Assessment Pt demos progress toward therapy goals. Pt requires SBA to mod A x2 person for bed mobility, max A x2 person for attempted transfers. Pt is currently limited by weakness, pain and is at an increased risk for falls. Pt will continue to benefit from acute skilled PT to address current deficits. Recommend return to ECF with PT. Subjective Pt pleasant and agreeable to therapy session Per RN okay for therapy Pain: pt reports pain in shoulder blade, does not rate Medical Precautions: Droplet Proper PPE donned/doffed in accordance with facility standards. Fall Risk: Cavazos Fall Risk Score: 35 (Medium Risk) Precautions/Restrictions: N/A Overall Cognitive Status: WFL Overall Orientation Status: Oriented x4 Family/Caregiver Present: none Objective Transfers/Mobility Sit to stand: Max Assist, x2 Person Assist Stand to sit: Max Assist, x2 Person Assist Pt completes x3 partial sit<->stand transfers from EOB. Pt completes x2 to FWW, x1 to B forearm assist. Pt requires max A x2 person to elevate and control descent. Cues provided for hand and foot placement with pt demoing significantly decreased B knee flexion impairing ability to achieve upright stand. Initial stand completes ~75% of stand, regressing to 50% with additional attempts. Device(s) used: front wheeled walker Bed Mobility Supine to sit: SBA Sit to supine: Mod Assist, x2 Person Assist Rolling to right: Mod Assist Rolling to left: Mod Assist Scooting: SBA Pt completes supine->sit at SBA with HOB elevated and use of bed rails. Cues provided for UE placement to initiate task. Pt requires mod A x2 person for trunk and BLE management to return to supine as pt's hips very close to EOB. Pt completes x1 roll to R/L requiring mod A x1 and use of bed rails to complete. Plan Continue acute PT per plan of care. Safety/Education Safety Safety Devices in place: All fall risk precautions in place, call light within reach, left in bed, gait belt, patient at risk for falls, nurse notified, and no alarms engaged upon entry Restraints: N/A Education Education Given To: patient Education Provided: PT Role, PT Goals, Plan of Care, Transfer Training, Energy Conservation, Equipment, Discharge Recommendations, and Benefits of Increasing Activity Education Method: Verbal Barriers to Learning: None Education Outcome: Verbalized Understanding, Demonstrated Understanding, and Continued Education Needed Outcome Measures AM-PAC AM-PAC Inpatient Mobility Raw Score (No Stairs) : 8 Goals Patient Stated Goal: Patient states she wants to get to there chair. Encounter Problems Encounter Problems (Active) Balance Patient will maintain static standing balance for 2 minutes with min assist in order to demonstrate decreased risk of falling. (Progressing) Start: 10/26/23 Expected End: 11/02/23 Patient will maintain dynamic sitting balance for 10 minutes with supervision in order to demonstrate improved postural control and prepare for out of bed mobility. (Progressing) Start: 10/26/23 Expected End: 11/02/23 Exercise Patient will complete lower extremity exercises for 1-2 sets / 10 reps in order to improve strength and activity tolerance for mobility. (Not Addressed) Start: 10/26/23 Expected End: 11/02/23 Transfers Patient will perform bed mobility with min assist in order to improve independence and prepare for out of bed mobility. (Progressing) Start: 10/26/23 Expected End: 11/02/23 Patient will complete functional transfers with rolling walker with mod assist in order to prepare for ambulation. (Progressing) Start: 10/26/23 Expected End: 11/02/23 Therapy Time Individual Co-treatment Time In 1051 (co-tx with OT due to pt requiring 2 person assist on eval) Time Out 1110 Minutes 19 Timed Code Treatment Minutes: 12 Minutes (ther act x1) Zenia Amato PT Images from the original note were not included. Hospitalist Progress Note 10/27/2023 [phone]: Please page me ([phone]) for patient care issues. [phone]: Please page [facility] Hospitalist for any issues. Subjective: Admit Date: 10/23/2023 PCP: Chris Arora DO (Inactive) Room#: B2255/B2255 A Interval History: No overnight issues. Denies chest pain, sob, abdominal pain, nausea, vomiting, diarrhea, constipation, fevers, or chills. Reports breathing well. Adult diet Easy to Chew 24HR INTAKE/OUTPUT: Intake/Output Summary (Last 24 hours) at 10/27/2023 1102 Last data filed at 10/27/2023 1054 Gross per 24 hour Intake 350 ml Output -- Net 350 ml Past Medical History: Past Medical History: Diagnosis Date CHF (congestive heart failure) ([facility]) COPD (chronic obstructive pulmonary disease) ([facility]) LABS: CBC: Recent Labs 10/25/23 0403 10/26/23 0500 10/27/23 0320 WBC 8.1 6.6 5.1 RBC 3.74* 3.64* 3.45* HGB 10.9* 10.5* 10.0* HCT 32.7* 32.1* 30.4* MCV 87.4 88.2 88.1 RDW 14.4 14.5 14.4 PLT 228 208 195 BMP: Recent Labs 10/25/23 0403 10/26/23 0500 10/27/23 0320 NA 133* 135 136 K 3.3* 3.2* 3.4* CL 108* 107 110* CO2 18* 24 23 BUN 26* 20* 19* CREATININE 1.27* 1.00 0.85 GLUCOSE 129* 108* 84 CALCIUM 8.3* 8.3* 8.0* ANIONGAP 8 5 3 LIVER PROFILE: Recent Labs 10/25/23 04010/26/23 0500 10/27/23 0320 AST 30 37 43 ALT 13 16 21 BILITOT 0.6 0.6 0.5 ALKPHOS 56 49 42 PROT 5.4* 5.3* 4.7* PT/INR: No results for input(s): "PROTIME", "INR" in the last 72 hours. CARDIAC ENZYMES: No results for input(s): "TROPONINI" in the last 72 hours. Procalcitonin: No results found for: "PROCAL" COVID-19 PCR: No results for input(s): "COVID19" in the last 72 hours. Objective: Vitals: BP 143/68 (BP Location: Left arm, Patient Position: Lying) Pulse 63 Temp 36.6 C (97.9 F) (Temporal) Resp 20 Ht 5' 1" (1.549 m) Wt 137 lb (62.1 kg) SpO2 96% BMI 25.89 kg/m Pulse Ox: SpO2 Av.3 % Min: 93 % Max: 96 % Supplemental O2: O2 Flow Rate (L/min): 2 L/min General appearance: No apparent distress, appears stated age and cooperative with exam. Elderly female in NAD Respiratory: CTA BL Cardiovascular: Regular rate and rhythm with no murmur Abdomen: Soft, non-tender, non-distended Skin: Skin color, texture, turgor normal. No rashes or lesions. Distal pulses intact in BL LE, no edema in BL LE. Neurologic: grossly non-focal. Medications: cefTRIAXone, 2,000 mg, IntraVENous, q24h enoxaparin, 30 mg, SubCUTAneous, Daily oseltamivir, 30 mg, Oral, BID pantoprazole, 40 mg, Oral, qAM AC sodium chloride 0.9%, 10 mL, IntraVENous, 2 times per day sodium chloride 0.9%, 5-40 mL, IntraCATHeter, q8h Assessment Sepsis with shock, POA Streptococcus parasanguinis bacteremia Influenza A CAP Sepsis resolved, off vasopressors ID following, echo negative for veg Abx per ID, planning 2 weeks of antibiotics, repeat cultures pending Tamiflu for 5 day course Acute COPD exacerbation with hypoxic respiratory failure Patient required supplemental O2 in the ICU Weaned as tolerated, currently stable on RA Normocytic anemia Stable CBC, daily CBC Iron supplementation HLD Statin HTN Home BP medications resumed Medical Decision Making 10/27/23: Patient presented with sepsis and shock with hypotension requiring ICU admission with vasopressor support. Patient found to have Influenza A CAP as well as streptococcus parasnaguinis bacteremia. Patient on broad spectrum abx, sepsis improved, weaned off pressors, transferred out of ICU on 10/28/23. Patient O2 requirements improved and was weaned to RA. Currently on 2 weeks of abx per ID recs as well as 5 day course of tamiflu for Flu A PNA. Home medications reviewed and resumed as indicated. PT/OT eval and treat, plan for patient to return to [facility]. CM following. -am labs, replace lytes prn -increase activity -resume home medications as indicated -DVT prophylaxis: [x] Lovenox [] Heparin [] SCDs [x] Encourage ambulation [] Already on Anticoagulation Anticipated Discharge - Date - 10/28/23 - Location - Skilled Facility - Pending the following - auth, final abx recs from ID. Toxic drug monitoring/narrow therapeutic index drug monitoring : # Drug name : # Route administered : # Method of monitoring : Extended Emergency Contact Information Primary Emergency Contact: Popeye Walter Relation: Child Secondary Emergency Contact: Ketan Walter Relation: Spouse Paco Casarez DO Division of Hospitalist Medicine Inpatient Medical Services/[facility] PAGER: Epic chat Images from the original note were not included. Speech-Language Pathology SPEECH LANGUAGE PATHOLOGY [facility] Dysphagia Treatment Note Patient Name: Adore Walter Evaluation Date: 10/27/2023 Date of : 1935 Admission Date: 10/23/2023 9:11 PM Age: 88 y.o. Room/Bed: [facility] A Subjective Patient alert and cooperative. Seen upright in bed, after assist with repositioning. No visitors at bedside. Pt asking, "Can I go back to [facility] today?" (Passed information on to physician of pt's request) Pain: RN managing pain. PPE Worn: surgical mask, face shield, gloves Objective & Assessment Dysphagia Treatment Dysphagia Activity 1: Assess tolerance of recommended diet Pt with baseline diet of regular with thin liquids. Mastication is functional as pt takes single small bites of claudia cracker. Functional / no overt deficits with thin liquids. She chooses foods that she is able to manage independently. (Not have to cut up) Sandwiches and soups are a preference. Plan & Recommendations Plan: Advance to regular diet with thin liquids. Pt is able to make choices of what she is able to manage. Recommend Regular solids and Thin liquids and meds as tolerated and the following precautions: - Upright positioning for all PO intake, ask for assist as needed. - Slow rate of intake - Single bites and sips D/C Recommendations: No follow up therapy recommended post discharge Education Education Given: diet recommendations, ask for assist as needed. Given To: patient Response: verbalizes understanding Goals Patient Stated Goal: "to go home" back to [facility]. She has a room with her . Encounter Problems Encounter Problems (Resolved) Swallowing Patient will tolerate the least restrictive diet consistency to allow for safe consumption of daily meals (Completed) Start: 10/24/23 Expected End: 11/08/23 Resolved: 10/27/23 Patient will tolerate recommended food and liquid consistencies without clinical signs and symptoms of aspirations (Completed) Start: 10/24/23 Expected End: 11/08/23 Resolved: 10/27/23 Therapy Time TENNIS PLAYER Individual Minutes Time In: 936 Time Out: 954 Minutes: 18 INGRID Vazquez Images from the original note were not included. OCCUPATIONAL THERAPY [facility] Initial Evaluation Name/MRN: Adore Walter ([id number]) Evaluation Date: 10/26/2023 Date of : 1935 Admission Date: 10/23/2023 9:11 PM Age: 88 y.o. Room/Bed: 222/ A Discharge Recommendation[facility] Assessment IMPRESSION: Pt admitted with AMS and hypotension, found to have type II NSTEMI and sepsis. Prior to admission, pt required assist for ADLs, and functional transfers via neyda, however, pt reports able to efficiency engineer shower with gb. Pt now requires min-total A for ADLs, and max A x2 for STS/standing balance at w. Pt is limited by impaired balance and endurance. Pt should benefit from skilled OT services in order to increase safety and independence in occupational participation. Performance Deficits /Impairments: Decreased Functional Mobility, Decreased ADL status, Decreased ROM, Decreased Strength, Decreased Safety Awareness, Decreased Cognition, Decreased Endurance, Decreased Balance, and Decreased High Level IADLs Prognosis: Guarded Decision Making: Medium Complexity Subjective Pt pleasant and cooperative. Per RN, ok for pt to participate in OT eval. Co-eval with PT d/t 2-person assist. IV intact. Pain: Pt denies any current pain. Past Medical History: Past Medical History: Diagnosis Date CHF (congestive heart failure) ([facility]) COPD (chronic obstructive pulmonary disease) ([facility]) Past Surgical History: Past Surgical History: Procedure Laterality Date HIP SURGERY Right HYSTERECTOMY KNEE SURGERY Bilateral LEG MUSCLE SURGERY (HISTORICAL) Left Admission Diagnosis: Patient Active Problem List Diagnosis Date Noted NSTEMI (non-ST elevated myocardial infarction) ([facility]/H[facility]) ([facility]) 10/23/2023 Faith-prosthetic femoral shaft fracture 10/01/2021 Periprosthetic fracture around internal prosthetic joint 09/25/2021 Hypertensive urgency 09/25/2021 Gait instability 09/25/2021 Intractable neuropathic pain of left knee 09/25/2021 Hyponatremia 09/25/2021 Hyperglycemia 09/25/2021 Thoracic aortic aneurysm without rupture (HCC) 09/09/2021 Essential hypertension 12/14/2020 LV dysfunction 12/14/2020 Ectopic cardiac beats 12/14/2020 Chronic obstructive pulmonary disease (HCC) 09/19/2019 Hydronephrosis, bilateral 01/03/2019 OAB (overactive bladder) 12/08/2018 Primary osteoarthritis of right hip 06/14/2017 History of total left hip replacement 06/14/2017 Presence of retained hardware 06/14/2017 Hypercholesterolemia 11/11/2015 Osteoporosis 11/11/2015 Medical Precautions: Droplet Proper PPE donned/doffed in accordance with facility standards. Fall Risk: Cavazos Fall Risk Score: 35 (Medium Risk) Precautions/Restrictions: N/A Family/Caregiver Present: none Overall Cognitive Status: Exceptions - Safety judgement: decreased awareness of need for assistance and decreased awareness of need for safety - Problem solving: assistance required to generate solutions, assistance required to implement solutions, assistance required to identify errors made, assistance required to correct errors made, and decreased awareness of errors - Insights: decreased awareness of deficits Overall Orientation Status: Oriented x4 Social/Functional History Patient admitted from SNF. Assistive Equipment: wheelchair - manual and neyda Prior Level of Function ADL Assistance: Needs Assist Ambulation Assistance: Non-Ambulatory Transfer Assistance: Needs Assist Objective ADLs LE Dressing: Max Assist, Pt required assist to thread BLE into briefs, pt able to hike past knees in standing. Unable to hike past hips d/t fecal incontinence and limited standing tolerance. Toileting: Dependent, Pt required total A to complete pericare in sidelying as well as standing. Upper Extremity Assessment AROM: Impaired: generally decreased, functional Strength: Exceptions: grossly decreased Vision: no visual deficits Hearing: normal Bed Mobility Supine to sit: Mod Assist, assist to elevate trunk and fully scoot hips to EOB Sit to supine: Max Assist, x2 Person Assist, assist to manage BLE Into bed and trunk Rolling to right: Max Assist, assist to complete full roll with assist for BLE/UB positioning Rolling to left: Max Assist, assist to complete full roll with assist for BLE/UB positioning Scooting: Min Assist, Max Assist, min A to scoot to EOB, max A x2 to scoot to HOB HOB elevated with use of bed features and increased time to complete with VC for initiation and sequencing for bed mobility. Denied dizziness with changes in positioning. Transfers/Functional Mobility Sit to stand: Max Assist, x2 Person Assist Stand to sit: Max Assist, x2 Person Assist Standing balance: Max Assist, x2 Person Assist Pt required max A x2 to complete STS to/from EOB with fww with VC for safe hand placement as pt attempted to hold onto fww during transfers. Pt required max A x2 to complete. Pt stood ~45 seconds on first trial and ~10 seconds on second trial with max A x2 at fww d/t significant instability. Device(s) used: front wheeled walker AM-PAC AM-PAC Inpatient Daily Activity Raw Score: 13 ADL Inpatient [facility] G-Code Modifier: CL Plan Pt would benefit from skilled acute OT services to address Strengthening, ROM, Balance Training, Functional Mobility Training, Endurance Training, Safety Education and Training, Patient/Caregiver Training, Equipment Evaluation/Education, Positioning, and Self-Care/ADL Training. Frequency: 7 visits during current hospital admission or until additional recommendations are made Barriers: Decreased endurance, Upper extremity weakness, and Lower extremity weakness Prognosis: fair Safety/Education Safety Safety Devices in place: All fall risk precautions in place, call light within reach, left in bed, gait belt, patient at risk for falls, nurse notified, and no alarms engaged upon entry Restraints: No Education Education Given To: patient Education Provided: OT Role, Plan of Care, ADL Adaptive Strategies, Transfer Training, Equipment, Fall Prevention Education, Discharge Recommendations, and Benefits of Increasing Activity Education Method: Verbal Barriers to Learning: Cognition Education Outcome: Verbalized Understanding, Demonstrated Understanding, and Continued Education Needed Goals Patient Stated Goal: to return to SNF Encounter Problems Encounter Problems (Active) Balance Patient will tolerate standing for 2 minutes with mod A at fww to allow increased independence in ADLs. Start: 10/26/23 Expected End: 11/09/23 Patient will maintain static sitting balance for 8 minutes with modified independence in order to demonstrate improved postural control and prepare for out of bed mobility. Start: 10/26/23 Expected End: 11/09/23 Dressing Upper Extremities Patient will complete upper body Adls with SBA. Start: 10/26/23 Expected End: 11/09/23 Dressings Lower Extremities Patient will complete lower body ADLs with mod A. Start: 10/26/23 Expected End: 11/09/23 Mobility Patient will increase ROM/strength of BUE to be able to increase independence in ADLs. Start: 10/26/23 Expected End: 11/09/23 Toileting Patient will complete toileting tasks at bedside commode with mod assist. Start: 10/26/23 Expected End: 11/09/23 Transfers Patient will complete functional transfer with rolling walker with mod assist in order to prepare for ambulation. Start: 10/26/23 Expected End: 11/09/23 Patient will perform bed mobility with min assist in order to improve independence and prepare for out of bed mobility. Start: 10/26/23 Expected End: 11/09/23 Therapy Time Individual Co-treatment Time In 1414 Time Out 1440 Minutes 26 Timed Code Treatment Minutes: 11 Minutes (1 ADL) Gretchen Abdalla OT Patient's Occupational Therapy Plan of Care supervision is transferred to a [facility] Therapy Services Occupational Therapist. Goals and/or treatment plan was established in collaboration with patient/family/other representatives. Images from the original note were not included. PHYSICAL THERAPY [facility] Initial Evaluation Name/MRN: Adore Walter ([id number]) Evaluation Date: 10/26/2023 Date of : 1935 Admission Date: 10/23/2023 9:11 PM Age: 88 y.o. Room/Bed: 222-08/222-08 A Discharge Recommendation: [facility]itentiary Facility, ECF with PT Other: TBD at next level of care Assessment IMPRESSION: Pt presents with decreased functional mobility, decreased strength, decreased safety awareness, decreased endurance and impaired balance. Pt has decreased standing balance, poor activity tolerance, decreased safety awareness and weakness requiring physical assist of 2 person in order to safely complete minimal OOB mobility placing her at a high risk of falling. Pt could benefit from skilled PT in order to address her decreased functional mobility, strength, balance and safety. Pt has medical history as listed below that that contributes to her clinical presentation. At baseline patient reports the facility staff use a neyda twice a week to get to a shower, however stands in the shower with a grab bar. Currently patient is unsafe to return to her prior level of assist secondary to her increased need for assist and fall risks with mobility. Diagnosis: Pt admitted with altered mental status, hypotension requiring pressors this admission (discontinued 10/25/23), NSTEMI secondary to sepsis and hypotension. Prognosis: good Performance Deficits /Impairments: Decreased Functional Mobility, Decreased Strength, Decreased Safety Awareness, Decreased Endurance, and Decreased Balance Decision Making: Medium Complexity Subjective Patient pleasant and agreeable to therapy session this date. Per RN patient okay for therapy. Co-eval with OT for safety secondary to level of assist for mobility. Observation: central line intact, dressing to buttocks soiled and removed by RN this session Pain: Pt denies any current pain. Past Medical History: Past Medical History: Diagnosis Date CHF (congestive heart failure) ([facility]) COPD (chronic obstructive pulmonary disease) ([facility]) Past Surgical History: Past Surgical History: Procedure Laterality Date HIP SURGERY Right HYSTERECTOMY KNEE SURGERY Bilateral LEG MUSCLE SURGERY (HISTORICAL) Left Admission Diagnosis: Patient Active Problem List Diagnosis Date Noted NSTEMI (non-ST elevated myocardial infarction) ([facility]/HCC) ([facility]) 10/23/2023 Faith-prosthetic femoral shaft fracture 10/01/2021 Periprosthetic fracture around internal prosthetic joint 09/25/2021 Hypertensive urgency 09/25/2021 Gait instability 09/25/2021 Intractable neuropathic pain of left knee 09/25/2021 Hyponatremia 09/25/2021 Hyperglycemia 09/25/2021 Thoracic aortic aneurysm without rupture ([facility]) 09/09/2021 Essential hypertension 12/14/2020 LV dysfunction 12/14/2020 Ectopic cardiac beats 12/14/2020 Chronic obstructive pulmonary disease (HCC) 09/19/2019 Hydronephrosis, bilateral 01/03/2019 OAB (overactive bladder) 12/08/2018 Primary osteoarthritis of right hip 06/14/2017 History of total left hip replacement 06/14/2017 Presence of retained hardware 06/14/2017 Hypercholesterolemia 11/11/2015 Osteoporosis 11/11/2015 Medical Precautions: Droplet Proper PPE donned/doffed in accordance with facility standards. Fall Risk: Cavazos Fall Risk Score: 35 (Medium Risk) Precautions/Restrictions: N/A Family/Caregiver Present: none Overall Cognitive Status: Exceptions - Safety judgement: decreased awareness of need for assistance and decreased awareness of need for safety - Problem solving: decreased awareness of errors - Insights: decreased awareness of deficits - Sequencing: requires cues for some Overall Orientation Status: Oriented to Place and Oriented to Person Vision: no visual deficits Hearing: normal Social/Functional History Patient admitted from [facility] facility . Assistive Equipment: wheelchair - manual and neyda Prior Level of Function ADL Assistance: Needs Assist Ambulation Assistance: Non-Ambulatory Transfer Assistance: Needs Assist and neyda lift - pt reports need for neyda lift 2x a week for transfer to shower and able to efficiency engineer the shower with assist with grab bar Pt is a questionable historian. Objective Lower Extremity Assessment AROM: WFL Strength: Pt demonstrates ability to complete SLR in supine Bed Mobility: Supine to sit: Mod Assist Sit to supine: Max Assist, x2 Person Assist Rolling to right: Max Assist Rolling to left: Max Assist Scooting: Min Assist, Max Assist, x2 Person Assist, Reyes to EOB, maxA x 2 to HOB Denies dizziness with positional changes. Pt requires cues throughout for sequencing in order to facilitate independence with mobility. Pt demonstrates good effort with increased time given. Limited by weakness. Increased assist to complete sit > supine with maxA x 2 required due to increased fatigue post transfers. Transfers Sit to stand: Max Assist, x2 Person Assist, to FWW from EOB 2x Stand to sit: Max Assist, x2 Person Assist Denies dizziness on initial stance. Pt requires cues for hand placement on ascent and B foot block to maintain foot positioning and safety. Pt requires skilled 2 person assist to complete at this time for safety. Pt tolerated ~45 seconds and ~10 seconds static standing this date with continued maxA x 2 to complete. Pt incontinent of stool with mobility requiring assist for all pericare and linen change this date. Ambulation N/A Outcome Measures AM-PAC How much HELP from another person do you currently need Turning from your back to your side while in a flat bed without using bedrails?: A Lot Moving from lying on your back to sitting on the side of a flat bed without using bedrails?: A Lot Moving to and from a bed to a chair (including a wheelchair)?: Total Standing up from a chair using your arms (wheelchair or bedside chair)?: A Lot Walking in a hospital room?: Total Stair climbing assessed?: No AM-PAC Inpatient Mobility Raw Score (No Stairs) : 8 Plan Pt would benefit from skilled acute PT services to address Strengthening, Balance Training, Functional Mobility Training, Endurance Training, Neuromuscular Re-Education Training, Safety Education and Training, Patient/Caregiver Training, Equipment Evaluation/Education, and Positioning. Frequency: 7 visits Barriers: Decreased endurance Safety/Education Safety Safety Devices in place: All fall risk precautions in place, call light within reach, left in bed, gait belt, patient at risk for falls, nurse notified, and no alarms engaged upon entry Restraints: N/A Education Education Given To: patient Education Provided: PT Role, PT Goals, Gait Training, Plan of Care, Transfer Training, Fall Prevention Education, Discharge Recommendations, and Benefits of Increasing Activity Education Method: Verbal, Demonstration, and Teach Back Barriers to Learning: Cognition Education Outcome: Verbalized Understanding, Demonstrated Understanding, and Continued Education Needed Goals Patient Stated Goal: Patient states she wants to get to there chair. Encounter Problems Encounter Problems (Active) Balance Patient will maintain static standing balance for 2 minutes with min assist in order to demonstrate decreased risk of falling. Start: 10/26/23 Expected End: 11/02/23 Patient will maintain dynamic sitting balance for 10 minutes with supervision in order to demonstrate improved postural control and prepare for out of bed mobility. Start: 10/26/23 Expected End: 11/02/23 Exercise Patient will complete lower extremity exercises for 1-2 sets / 10 reps in order to improve strength and activity tolerance for mobility. Start: 10/26/23 Expected End: 11/02/23 Transfers Patient will perform bed mobility with min assist in order to improve independence and prepare for out of bed mobility. Start: 10/26/23 Expected End: 11/02/23 Patient will complete functional transfers with rolling walker with mod assist in order to prepare for ambulation. Start: 10/26/23 Expected End: 11/02/23 Therapy Time Individual Co-treatment Time In 1414 Time Out 1440 Minutes 26 Timed Code Treatment Minutes: 11 Minutes (theract x 1) Briana Porter PT Patient's Physical Therapy Plan of Care supervision is transferred to a [facility] Therapy Services Physical Therapist. Goals and/or treatment plan was established in collaboration with patient/family/other representatives. Speech-Language Pathology ST following for dysphagia treatment. Patient on phone at time of attempted visit this date, requesting to continue phone conversation and declining PO trials. Will continue treatment next date as schedule permits. Mildred Bush M.A., CCC-TENNIS PLAYER ICU Progress Note Name: Adore Walter : 1935(88 y.o.) Date: 10/26/23 Team: MICU Attending: Wolfgang Subjective: Hospital Summary: 88F presented 10/22 with altered mental status. Found to be hypotensive and admitted to ICU with vasopressor support. Infectious work up initiated due to concern for sepsis. Cardiac work up also initiated for concern of cardiogenic shock. TTE showed EF 76%, normal diastolic function, mild aortic stenosis. Cardiology consulted, no further work up required on their end. Interval Events: Ms Walter seen and evaluated at bedside. Overnight vasopressor support able to be turned off and has remained off since. Sleeping comfortably in bed in no acute distress. Scheduled Meds:aspirin, 300 mg, Rectal, Once enoxaparin, 30 mg, SubCUTAneous, Daily Hydrocortisone Sod Suc (PF), 100 mg, IntraVENous, q8h lactated ringers, 30 mL/kg, IntraVENous, Once oseltamivir, 30 mg, Oral, BID pantoprazole, 40 mg, Oral, qAM AC piperacillin-tazobactam, 4,500 mg, IntraVENous, q8h potassium phosphates 15 mmol in sodium chloride 0.9 % 250 mL IVPB, 15 mmol, IntraVENous, Once sodium chloride 0.9%, 10 mL, IntraVENous, 2 times per day sodium chloride 0.9%, 5-40 mL, IntraCATHeter, q8h vancomycin, 750 mg, IntraVENous, q24h Continuous Infusions:norepinephrine, 1-100 mcg/min, Last Rate: Stopped (10/25/232034) Objective: Last Vitals: BP MAP 108/54 (10/24/23 0231) 73 (10/24/23 0231) Arterial BP MAP 166/96 (10/26/23 0530) 124 mmHg (10/26/23 0530) Temp 36.4 C (97.5 F) (10/26/23 0752) Pulse 58 (10/26/23 0530) Resp 19 (10/26/23 0530) SpO2 94 % (10/26/23 0530) Weight 62.1 kg (137 lb) (10/24/23 1217) BMI Body mass index is 25.89 kg/m . I/O: 10/24 0700 - 10/25 0659 In: 128 [I.V.:128] Out: 850 [Urine:850] Ventilator: Oxygen Delivery: O2 Flow Rate (L/min): 2 L/min Invasive Lines / Tubes / Drains: CVC Triple Lumen 10/24/23 Non-tunneled Right Internal jugular (Active) Number of days: 1 Peripheral IV 10/23/23 Anterior;Left Forearm (Active) Number of days: 1 External Urinary Catheter (Active) Number of days: 1 Arterial Line 10/24/23 Right Radial (Active) Number of days: 1 Central Line Indication: Vesicant infusions/medications at high risk of causing extravasation Hoffman Indications: NA - patient does not have a Hoffman catheter Restraints: NA - patient is not restrained. Wounds: Constitutional: General Appearance [x]WDWN []Obese []Cachectic []Thin []Ill Eyes: Inspection of Pupils/Irises Pupils round and react: [x]Yes []No Sclera: []Icteric [x]Non-Icteric Inspection of Conjunctiva/Lids Conjunctiva: []Injected [x]Non-Injected Lids: [x]Intact []Lesion Present ENT/Mouth: External Inspection of ears/nose [x] Normal [] Scar/Lesion/Mass Inspection of teeth/lips/gums Dentition: [][place] Teeth []Dentures Lips/Gums: [x]Intact []Lesion Present Mucosa: [][place] []Moist [x]Dry Neck: External Appearance Overall Appearance: [x]Normal []Lesion/Mass/Crepitus Present Trachea midline: [x]Yes []No Thyroid [x]Normal []Enlarged []Tender []Mass []Absent Respiratory: Respiratory effort []Labored [x]Non-Labored [] Mechanically-Ventilated Auscultation [x]Clear []Crackles []Wheezes [][place] Cardiovascular: Auscultation Rate: [x]Regular []Irregular []Tachycardia []Bradycardia Rhythm: [x]Regular []Irregular Murmur: []Present [x]Absent Extremities Peripheral Edema: []Present [x]Absent Varicosities: []Present [x]Absent Gastrointestinal: Abdomen Palpation: [x]Soft []Firm []Tender [x]Non-Tender []Distended [x]Non-distended Mass: []Present [x]Absent Bowel Sounds: [x]Present []Absent Hernia: []Present [x]Absent Liver/Spleen: []Hepatosplenomegaly [x]Organomegaly Absent Musculoskeletal: Inspection of Digits and Nails Cyanosis: []Present [x]Absent Clubbing: []Present [x]Absent Ischemia: []Present [x]Absent Infection: []Present [x]Absent Extremities ZARAGOZA Equally: Except ([]RUE []RLE []LUE []LLE) Strength/Tone: Intact and Normal ([]RUE []RLE []LUE []LLE) Skin: Inspection [x]Normal []Rash []Lesion []Ulcer Palpation [x]Warm []Cool [x]Dry []Clammy []Nodules []Induration []Skin-tightening Cap-Refill: [] <3 sec [] >3 seconds (delayed) Neurologic: GCS EYE: 4 - Opens spontaneously GCS MOTOR: 6 - Obeys commands for movement GCS VERBAL: 5 - Oriented to person, place, time Total GCS: 15 [x] Sensation grossly intact Psych: Mental Status Alert: [x]Yes [] No Oriented: []x0 []X1 []X2 [x]x3 Mood/Affect []Normal []Flat []Agitated []Depressed []Anxious []Calm []Sedated [x]NAD [facility] Labs within last 24 hours- BMP: Recent Labs 10/24/2341410/25/23 0403 10/26/23 0500 NA 133* 133* 135 K 3.5 3.3* 3.2* CL 107 108* 107 CO2 19* 18* 24 BUN 31* 26* 20* CREATININE 1.97* 1.27* 1.00 CALCIUM 8.2* 8.3* 8.3* MG -- -- 2.1 PHOS -- -- 2.3* LFTs: Recent Labs 10/24/23 0415 10/24/23 0644 10/25/23 0403 10/26/23 0500 AST 25 -- 30 37 ALT 11 -- 13 16 PROT 5.2* -- 5.4* 5.3* ALBUMIN 2.9* -- 2.9* 2.9* BILITOT 0.6 -- 0.6 0.6 BILIRUBINU -- Negative -- -- ALKPHOS 55 -- 56 49 Glucose: Recent Labs 10/23/23212510/23/23212810/24/23 0415 10/25/23 0403 10/26/23 0500 GLUCOSE 125* -- 144* 129* 108* POCGLU -- 86 -- -- -- Procal: Recent Labs 10/23/232125 PROCAL 15.67* CBC: Recent Labs 10/24/2330510/25/23 0403 10/26/23 0500 WBC 8.5 8.1 6.6 HGB 11.2* 10.9* 10.5* HCT 34.0* 32.7* 32.1* PLT 214 228 208 MCV 90.2 87.4 88.2 RDW 14.5 14.4 14.5 ABGs: Recent Labs 10/24/23 032 PHART 7.313* [id number] 38.3 PO2ART 90.8 [id number] 19.4* SO2ART 96.3 Lactic Acid: Recent Labs 10/23/234 10/24/23 0415 LACTATE 1.3 0.7 INR: No results for input(s): "INR" in the last 72 hours. Cardiac Injury Profile: Recent Labs 10/24/23 0022 10/24/23 0306 10/24/23 0415 TROPONINI 0.756* 0.544* 0.463* Labs in Last 3 months: Lab Results Component Value Date TSH 0.082 (L) 10/23/2023 INR 1.1 10/01/2021 Microbiology- Urine Cx: Lab Results Component Value Date URINECX 10/24/2023 Multiple species present; probable contamination; repeat suggested Blood Cx: Lab Results Component Value Date BLOODCX Streptococcus parasanguinis (AA) 10/24/2023 BLOODCX Streptococcus parasanguinis (AA) 10/24/2023 Sputum Cx: Lab Results Component Value Date RESPCULT 10/25/2023 Culture canceled due to poor specimen quality. Recollect if clinically indicated. Gram Stain: Lab Results Component Value Date LABGRAM Moderate Epithelial cells per low power field (A) 10/25/2023 LABGRAM (A) 10/25/2023 Few Polymorphonuclear leukocytes per low power field LABGRAM Few Gram positive cocci (A) 10/25/2023 LABGRAM Rare Gram positive bacilli (A) 10/25/2023 LABGRAM (A) 10/25/2023 Smear contains >= 15 squamous cells per low power field, suggestive of poor quality. Culture not performed. Please re-collect if clinically indicated. PNA PCR: Lab Results Component Value Date HUMANMETAPNE Not Detected 10/23/2023 COVID19: Lab Results Component Value Date COVID19 Negative 10/06/2021 Legionella Ag: No results found for: "LEGIONELLAPN" Strep Ag: No results for input(s): "STREPPNEUMO" in the last 72 hours. Imaging- No new imaging to review Assessment and Plan: Principal Problem: NSTEMI (non-ST elevated myocardial infarction) (CMS/HCC) ([facility]) Assessment/Plan: Septic shock - off vasopressors Bacteremia d/t S.parasanguinis Influenza A Normocytic anemia, stable Hyperlipidemia -Vasopressor have remained off since yesterday evening -Blood culture obtained 10/23 growing S.parasanguinous. Repeat cultures obtained today to monitor for clearance -TTE performed 10/23 showed EF 76%, normal diastolic function. No signs of vegetation -Will de-escalate antibiotics to ceftriaxone -Complete course of Tamiflu -Consult ID to follow patient once out of ICU -PT/OT ordered -Ok for transfer out of ICU, will place orders -Will remove arterial line and central line GI Prophylaxis: Pantoprazole PO DVT Prophylaxis: Lovenox 40 q 24hr - creatinine clearance >30 Disposition: Transfer to [facility] Critical Care Time: 38 minutes Total critical care time caring for this patient with life threatening, unstable organ failure, including direct patient contact, management of life support systems, review of data including imaging and labs, discussions with other team members and physicians, excluding procedures. Pharmacy Vancomycin Consult Follow-Up Note Non-CODING AUDITOR Patients Current Dosin mg q24h CREATININE Date Value Ref Range Status 10/26/2023 1.00 0.52 - 1.04 mg/dL Final 10/06/2021 0.50 (L) 0.52 - 1.25 mg/dL Final UREA NITROGEN Date Value Ref Range Status 10/26/2023 20 (H) 7 - 17 mg/dL Final Auto WBC Date Value Ref Range Status 10/26/2023 6.6 3.6 - 10.7 10*3/uL Final Ht Readings from Last 1 Encounters: 10/24/23 1.549 m (5' 1") Wt Readings from Last 1 Encounters: 10/24/23 62.1 kg (137 lb) Body mass index is Body mass index is 25.89 kg/m . Random: 17.4 mcg/ml drawn 10-25 at 0500 Calculated AUC: 402 mg/L.hr Assessment/Plan: Calculated AUC is 402mg/L.hr. Will cont current dose and continue to follow. Images from the original note were not included. Speech-Language Pathology SPEECH LANGUAGE PATHOLOGY [facility] Dysphagia Treatment Note Patient Name: Adore Walter Evaluation Date: 10/25/2023 Date of : 1935 Admission Date: 10/23/2023 9:11 PM Age: 88 y.o. Room/Bed: 222-08/222-08 A Subjective Patient alert and cooperative. Seen upright in bed. No visitors at bedside. Spoke with TY Perez who cleared pt for treatment. Close the blinds, I want to sleep" I was doing ok until they woke me up" Pain: RN managing pain. PPE Worn: surgical mask, face shield, gloves Objective & Assessment Dysphagia Treatment # of Activities: 1 Dysphagia Activity 1: Assess tolerance of recommended diet Pt taking pancakes, coffee, water via large bore straw without overt deficits. Pt with c/o bland tasting foods. Mastication and self feeding was functional without clinical/overt s/s of airway compromise. SpO2 was 94% (pt does not wear O2 at baseline) O2 needs has decreased since onset. Plan & Recommendations Plan: Continue acute TENNIS PLAYER therapy per initial plan of care and established goals. D/C Recommendations: to be determined Education Education Given: swallowing strategies, role of TENNIS PLAYER Given To: patient Response: needs reinforcement Goals Patient Stated Goal: "to rest" Encounter Problems Encounter Problems (Active) Swallowing Patient will tolerate the least restrictive diet consistency to allow for safe consumption of daily meals (Progressing) Start: 10/24/23 Expected End: 11/08/23 Patient will tolerate recommended food and liquid consistencies without clinical signs and symptoms of aspirations (Progressing) Start: 10/24/23 Expected End: 11/08/23 Therapy Time TENNIS PLAYER Individual Minutes Time In: 941 Time Out: 1003 Minutes: 21 INGRID Vazquez [facility] Cardiology /Electrophysiology Progress Note HPI / Interval History: Adore Walter has a history of PVC, HTN and dilated ascending aorta (known to Dr. Leiva and last seen 2020) who presented to [facility] with change in mental status and hypotension. Her SBP upon arrival was 62 mmHg. She was placed on levophed gtt. Her initial troponin was elevated at 0.993. She is being treated for sepsis. She was seen by Dr. Villalobos in consultation who felt her elevated troponin was due to hypotension and sepsis. TTE with preserved EF 72% and no regional wall motion abnormality. Today, her only complaint is feeling tired ans wanting to take a nap. She denies CP, SOB, PND, orthopnea, edema, palpitations or syncope. Her levophed is being weaned. Assessment/Plan HF NYHA Class [x] I [] II [] III [] IV Type II VA 2/2 demand ischemia from sespis/hypotension - peak trop 0.993 and downtrending - TTE with preserved EF and no RWMA - no further cardiac workup needed Sepsis/UTI/influenza A - per ICU/primary team Mild aortic stenosis - no further workup currently needed Ascending aortic aneurysm - 4.0 per TTE 10/2023 - recommend good HR and BP control - will follow as OP HTN - currently hypotensive 2/2 sepsis - resume home Coreg and lisinopril as able Cardiology Discharge/Sign-off Recommendations Cardiology medications to continue: [] All cardiac medications as ordered currently [] Admission cardiac medications [x] Please start the following medications on discharge: coreg and lisinopril is BP improves [] Please stop the following medications on discharge: Followup testing recommended as an outpatient: [] To be arranged by Inpatient provider/PCP [] Will be arranged by Cardiology Cardiology followup: [] Not needed [] Recommend primary service arrange f/u with patient's outpatient shopping inspector 1-2 wks. [] Recommended; unable to arrange at this time, will arrange post-discharge [x] Arranged as follows: Karlee Fernandez APRN-JULES on 12/07/2023 at 11:45am If there are any questions/concerns, please contact the covering provider. If no answer by Secure Chat, please call the cardiology office to obtain appropriate covering SECOND OFFICER/physician. Medications: aspirin, 300 mg, Rectal, Once enoxaparin, 30 mg, SubCUTAneous, Daily Hydrocortisone Sod Suc (PF), 100 mg, IntraVENous, q8h lactated ringers, 30 mL/kg, IntraVENous, Once oseltamivir, 30 mg, Oral, Daily pantoprazole, 40 mg, Oral, qAM AC piperacillin-tazobactam, 4,500 mg, IntraVENous, q8h sodium chloride 0.9%, 10 mL, IntraVENous, 2 times per day sodium chloride 0.9%, 5-40 mL, IntraCATHeter, q8h [START ON 10/26/2023] vancomycin, 750 mg, IntraVENous, q24h Infusion Medications: norepinephrine, 1-100 mcg/min, Last Rate: 3 mcg/min (10/25/23 1047) Physical Examination: Vitals: 10/25/23 0600 10/25/23 0700 10/25/23 0730 10/25/23 0800 BP: BP Location: Patient Position: Pulse: 50 53 57 56 Resp: 18 17 17 16 Temp: 36.1 C (97 F) TempSrc: Oral SpO2: 97% 96% 96% 96% Weight: Height: Intake/Output Summary (Last 24 hours) at 10/25/2023 1050 Last data filed at 10/25/2023 0656 Gross per 24 hour Intake 2609 ml Output 950 ml Net 1659 ml Wt Readings from Last 3 Encounters: 10/24/23 137 lb (62.1 kg) 09/16/21 127 lb (57.6 kg) 09/09/21 125 lb (56.7 kg) Physical Exam Vitals reviewed. Constitutional: Appearance: Normal appearance. Comments: Warm good color HENT: Head: Normocephalic and atraumatic. Eyes: Extraocular Movements: Extraocular movements intact. Conjunctiva/sclera: Conjunctivae normal. Cardiovascular: Rate and Rhythm: Normal rate and regular rhythm. Heart sounds: Murmur heard. Systolic murmur is present with a grade of 1/6. No S3 or S4 sounds. Pulmonary: Effort: Pulmonary effort is normal. Breath sounds: Normal breath sounds. Abdominal: General: Bowel sounds are normal. Palpations: Abdomen is soft. Musculoskeletal: Cervical back: Normal range of motion. Right lower leg: No edema. Left lower leg: No edema. Skin: General: Skin is warm and dry. Neurological: General: No focal deficit present. Mental Status: She is alert and oriented to person, place, and time. Mental status is at baseline. Psychiatric: Mood and Affect: Mood normal. Laboratory Tests: Recent Labs 10/23/23212510/24/23 0415 10/25/23 0403 NA 131* 133* 133* K 3.9 3.5 3.3* CL 100 107 108* CO2 21* 19* 18* BUN 31* 31* 26* CREATININE 2.17* 1.97* 1.27* Recent Labs 10/23/23212510/24/23 0306 10/25/23 0403 WBC 8.7 8.5 8.1 HGB 11.4* 11.2* 10.9* HCT 34.5* 34.0* 32.7* MCV 90.1 90.2 87.4 PLT 200 214 228 Recent Labs 10/23/23212510/24/23 0022 10/24/23 0306 10/24/23 0415 TROPONINI 0.993* 0.756* 0.544* 0.463* Recent Labs 10/23/232125 BNP 6,090* No results for input(s): "TRIG", "HDL", "LDLCALC", "CHOL" in the last 72 hours. No results found for: LDLCHOLESTER Lab Results Component Value Date TSH 0.082 (L) 10/23/2023 EF BP Date Value Ref Range Status 10/24/2023 76 55 - 100 % Final 10/23/23 TRANSTHORACIC ECHOCARDIOGRAM (TTE) COMPLETE (CONTRAST/BUBBLE/3D PRN) 10/24/2023 12:46 PM (Final) Interpretation Summary Left Ventricle: Left ventricle size is normal. Mildly increased wall thickness. Moderate septal thickening. Normal left ventricular systolic function. EF by 2D Simpsons Biplane is 76%. Normal wall motion. Normal diastolic function. Right Ventricle: Right ventricle size is normal. RV basal diameter is 3.6 cm. RV mid diameter is 3.3 cm. Normal systolic function. TAPSE is normal. TAPSE is 2.5 cm. Aortic Valve: Mildly thickened cusps. Mildly calcified cusps. Left, right and noncoronary cusps sclerosis. Mild (1+) regurgitation. Aortic sclerosis/mild stenosis. Mitral Valve: Mildly thickened leaflets. Mild annular calcification (posterior). Trace regurgitation. Pulmonic Valve: Valve structure is normal. Mildly thickened cusps. Left Atrium: Left atrium size is mildly increased (LA volume index 35-41 mL/m2).LA Vol Index A/L is 36 mL/m2. Right Atrium: Not well visualized. Right atrium size is normal. Aorta: Normal sized sinuses of Valsalva. Sinuses of Valsalva diameter is 3.6 cm. Moderately dilated ascending aorta. Ao ascending diameter is 4.0 cm. Pericardium: Evidence of prominent epicardial fat. No pericardial effusion. Signed by: Gurmeet Villalobos DO on 10/24/2023 12:46 PM Other reports reviewed: Cardiac Tests: Telemetry findings reviewed: SR EF BP Date Value Ref Range Status 10/24/2023 76 55 - 100 % Final ADARSH Snyder CNP Date Of Service 10/25/2023 ICU Progress Note Name: Adore Walter : 1935(88 y.o.) Date: 10/25/23 Team: MICU Attending: Wolfgang Subjective: Hospital Summary: 88F presented 10/22 with altered mental status. Found to be hypotensive and admitted to ICU with vasopressor support. Infectious work up initiated due to concern for sepsis. Cardiac work up also initiated for concern of cardiogenic shock. TTE showed EF 76%, normal diastolic function, mild aortic stenosis. Cardiology consulted, no further work up required on their end. Interval Events: Ms Walter seen and evaluated at bedside. She is resting comfortably in bed. Reports that she did not sleep well, but otherwise no complaints. Scheduled Meds:aspirin, 300 mg, Rectal, Once Hydrocortisone Sod Suc (PF), 100 mg, IntraVENous, q8h lactated ringers, 30 mL/kg, IntraVENous, Once oseltamivir, 30 mg, Oral, Daily piperacillin-tazobactam, 4,500 mg, IntraVENous, q8h sodium chloride 0.9%, 10 mL, IntraVENous, 2 times per day sodium chloride 0.9%, 5-40 mL, IntraCATHeter, q8h [START ON 10/26/2023] vancomycin, 750 mg, IntraVENous, q24h Continuous Infusions:norepinephrine, 1-100 mcg/min, Last Rate: 1 mcg/min (10/25/23 0014) Objective: Last Vitals: BP MAP 108/54 (10/24/23 0231) 73 (10/24/23 0231) Arterial BP MAP 101/47 (10/25/23 0600) 65 mmHg (10/25/23 06) Temp 36.4 C (97.6 F) (10/25/23 0345) Pulse 50 (10/25/23 0600) Resp 18 (10/25/23 0600) SpO2 97 % (10/25/23 0600) Weight 62.1 kg (137 lb) (10/24/23 1217) BMI Body mass index is 25.89 kg/m . I/O: 10/23 0700 - 10/24 0559 In: 2609 [P.O.:500; I.V.:603] Out: 950 [Urine:950] Ventilator: Oxygen Delivery: O2 Flow Rate (L/min): 2 L/min Invasive Lines / Tubes / Drains: CVC Triple Lumen 10/24/23 Non-tunneled Right Internal jugular (Active) Number of days: 1 Peripheral IV 10/23/23 Anterior;Left Forearm (Active) Number of days: 1 External Urinary Catheter (Active) Number of days: 1 Arterial Line 10/24/23 Right Radial (Active) Number of days: 1 Central Line Indication: Vesicant infusions/medications at high risk of causing extravasation Hoffman Indications: NA - patient does not have a Hoffman catheter Restraints: NA - patient is not restrained. Wounds: Constitutional: General Appearance [x]WDWN []Obese []Cachectic []Thin []Ill Eyes: Inspection of Pupils/Irises Pupils round and react: [x]Yes []No Sclera: []Icteric [x]Non-Icteric Inspection of Conjunctiva/Lids Conjunctiva: []Injected [x]Non-Injected Lids: [x]Intact []Lesion Present ENT/Mouth: External Inspection of ears/nose [x] Normal [] Scar/Lesion/Mass Inspection of teeth/lips/gums Dentition: [][place] Teeth []Dentures Lips/Gums: [x]Intact []Lesion Present Mucosa: [][place] []Moist [x]Dry Neck: External Appearance Overall Appearance: [x]Normal []Lesion/Mass/Crepitus Present Trachea midline: [x]Yes []No Thyroid [x]Normal []Enlarged []Tender []Mass []Absent Respiratory: Respiratory effort []Labored [x]Non-Labored [] Mechanically-Ventilated Auscultation [x]Clear []Crackles []Wheezes [][place] Cardiovascular: Auscultation Rate: [x]Regular []Irregular []Tachycardia []Bradycardia Rhythm: [x]Regular []Irregular Murmur: []Present [x]Absent Extremities Peripheral Edema: []Present [x]Absent Varicosities: []Present [x]Absent Gastrointestinal: Abdomen Palpation: [x]Soft []Firm []Tender [x]Non-Tender []Distended [x]Non-distended Mass: []Present [x]Absent Bowel Sounds: [x]Present []Absent Hernia: []Present [x]Absent Liver/Spleen: []Hepatosplenomegaly [x]Organomegaly Absent Musculoskeletal: Inspection of Digits and Nails Cyanosis: []Present [x]Absent Clubbing: []Present [x]Absent Ischemia: []Present [x]Absent Infection: []Present [x]Absent Extremities ZARAGOZA Equally: Except ([]RUE []RLE []LUE []LLE) Strength/Tone: Intact and Normal ([]RUE []RLE []LUE []LLE) Skin: Inspection [x]Normal []Rash []Lesion []Ulcer Palpation [x]Warm []Cool [x]Dry []Clammy []Nodules []Induration []Skin-tightening Cap-Refill: [] <3 sec [] >3 seconds (delayed) Neurologic: GCS EYE: 4 - Opens spontaneously GCS MOTOR: 6 - Obeys commands for movement GCS VERBAL: 5 - Oriented to person, place, time Total GCS: 15 [x] Sensation grossly intact Psych: Mental Status Alert: [x]Yes [] No Oriented: []x0 []X1 []X2 [x]x3 Mood/Affect []Normal []Flat []Agitated []Depressed []Anxious []Calm []Sedated [x]NAD [facility] within last 24 hours- BMP: Recent Labs 10/23/23212510/24/2341410/25/23 0403 NA 131* 133* 133* K 3.9 3.5 3.3* CL 100 107 108* CO2 21* 19* 18* BUN 31* 31* 26* CREATININE 2.17* 1.97* 1.27* CALCIUM 9.0 8.2* 8.3* LFTs: Recent Labs 10/23/23212510/24/2341410/24/23 0644 10/25/23 0403 AST 29 25 -- 30 ALT 12 11 -- 13 PROT 5.9* 5.2* -- 5.4* ALBUMIN 3.3* 2.9* -- 2.9* BILITOT 0.8 0.6 -- 0.6 BILIRUBINU -- -- Negative -- ALKPHOS 59 55 -- 56 Glucose: Recent Labs 10/23/23212510/23/23212810/24/235 10/25/23 0403 GLUCOSE 125* -- 144* 129* POCGLU -- 86 -- -- Procal: Recent Labs 10/23/232125 PROCAL 15.67* CBC: Recent Labs 10/23/23212510/24/23 0306 10/25/23 0403 WBC 8.7 8.5 8.1 HGB 11.4* 11.2* 10.9* HCT 34.5* 34.0* 32.7* PLT 200 214 228 MCV 90.1 90.2 87.4 RDW 14.6 14.5 14.4 ABGs: Recent Labs 10/24/23 0323 PHART 7.313* [id number] 38.3 PO2ART 90.8 BSF0CBG 19.4* SO2ART 96.3 Lactic Acid: Recent Labs 10/23/23 2244 10/24/23 0415 LACTATE 1.3 0.7 INR: No results for input(s): "INR" in the last 72 hours. Cardiac Injury Profile: Recent Labs 10/24/23 0022 10/24/23 0306 10/24/23 0415 TROPONINI 0.756* 0.544* 0.463* Labs in Last 3 months: Lab Results Component Value Date TSH 0.082 (L) 10/23/2023 INR 1.1 10/01/2021 Microbiology- Urine Cx: Lab Results Component Value Date URINECX No growth (<1,000 CFU/ml). 10/02/2021 Blood Cx: Lab Results Component Value Date BLOODCX Gram-positive cocci (AA) 10/24/2023 BLOODCX Gram-positive cocci (AA) 10/24/2023 Sputum Cx: No results found for: RESPCULT Gram Stain: No results found for: LABGRAM PNA PCR: Lab Results Component Value Date HUMANMETAPNE Not Detected 10/23/2023 COVID19: Lab Results Component Value Date COVID19 Negative 10/06/2021 Legionella Ag: No results found for: "LEGIONELLAPN" Strep Ag: No results for input(s): "STREPPNEUMO" in the last 72 hours. Imaging- No new imaging to review Assessment and Plan: Principal Problem: NSTEMI (non-ST elevated myocardial infarction) ([facility]/HCC) ([facility]) Assessment/Plan: Septic shock Bacteremia d/t S.parasanguinis Influenza A NAGMA KUSUM Normocytic anemia Hyperlipidemia -Vasopressors to maintain MAP >65 -Blood culture obtained 10/23 growing gram positive cocci, will follow for speciation. Obtain repeat cultures tomorrow -TTE performed 10/23 showed EF 76%, normal diastolic function. No signs of vegetation -Continue vancomycin and Zosyn while awaiting culture results -Complete course of Tamiflu GI Prophylaxis: Pantoprazole PO DVT Prophylaxis: Lovenox 40 q 24hr - creatinine clearance >30 Disposition: Remain in ICU Status Critical Care Time: 46 minutes Total critical care time caring for this patient with life threatening, unstable organ failure, including direct patient contact, management of life support systems, review of data including imaging and labs, discussions with other team members and physicians, excluding procedures. Pharmacy Vancomycin Consult Follow-Up Note Non-CODING AUDITOR Patients Current Dosin mg q24h CREATININE Date Value Ref Range Status 10/25/2023 1.27 (H) 0.52 - 1.04 mg/dL Final 10/06/2021 0.50 (L) 0.52 - 1.25 mg/dL Final UREA NITROGEN Date Value Ref Range Status 10/25/2023 26 (H) 7 - 17 mg/dL Final Auto WBC Date Value Ref Range Status 10/25/2023 8.1 3.6 - 10.7 10*3/uL Final Ht Readings from Last 1 Encounters: 10/24/23 1.549 m (5' 1") Wt Readings from Last 1 Encounters: 10/24/23 62.1 kg (137 lb) Body mass index is Body mass index is 25.89 kg/m . Random: 11.5 mcg/ml drawn 325 at 0403 Calculated AUC: 313 mg/L.hr Assessment/Plan: Calculated AUC is 313 mg/L.hr. Will increase to 750 mg q24h and continue to follow. Art line positional. Pt eating and moving arm Images from the original note were not included. Speech-Language Pathology SPEECH LANGUAGE PATHOLOGY [facility] Bedside Swallow Evaluation Patient Name: Adore A Marta Evaluation Date: 10/24/2023 Date of : 1935 Admission Date: 10/23/2023 9:11 PM Age: 88 y.o. Room/Bed: 222-08/222-08 A IMPRESSION: No s/s oropharyngeal dysphagia. Intermittent overt clinical s/s pulmonary compromise with PO. Risk factors for aspiration include advanced age, general weaknss. RECOMMENDATION: Recommend Easy to chew solids and Thin liquids and meds as tolerated and the following precautions: - Upright positioning for all PO intake - Slow rate of intake - Small bites/sips Pt would benefit from skilled acute TENNIS PLAYER services to address assess diet tolerance. Frequency: 3 days/wk for 2 weeks Barriers: Medical complications Prognosis: good D/C Recommendations: to be determined Subjective Patient alert and cooperative. Seen upright in bed. Answers all basic questions with clear vocal quality. Follows all basic commands. No visitors at bedside . Spoke with TY Roberts who cleared pt to be evaluated. Dysphagia History: No history of TENNIS PLAYER services in EMR with retrospective chart review Baseline Diet: regular/ thin @ecf Current Diet: NPO Dietary Orders (From admission, onward) Start Ordered 10/24/23 0124 NPO diet with enteral medications Diet effective now Question Answer Comment Medications? with enteral medications NPO except: Sips of Water NPO except: Ice Chips NPO except: Sips of Clear Liquids 10/24/23 0123 Tube Feeding: no Tracheostomy: no Recent Chest Xray/CT of Chest: XR chest 1 view 10/24/2023 Impression Central venous catheter in adequate position without pneumothorax. Report Dictated on Electronically Signed By: Aaron Keller MD Electronically Signed Date/Time: 10/24/2023 6:14 AM EDT Oxygen: Oxygen Therapy: Supplemental oxygen O2 Delivery Method: Nasal cannula O2 Flow Rate (L/min): 3 L/min Past Medical History: Past Medical History: Diagnosis Date CHF (congestive heart failure) ([facility]) COPD (chronic obstructive pulmonary disease) ([facility]) Past Surgical History: Past Surgical History: Procedure Laterality Date HIP SURGERY Right HYSTERECTOMY KNEE SURGERY Bilateral LEG MUSCLE SURGERY (HISTORICAL) Left Admission Diagnosis: Patient Active Problem List Diagnosis Date Noted NSTEMI (non-ST elevated myocardial infarction) (CMS/HCC) ([facility]) 10/23/2023 Faith-prosthetic femoral shaft fracture 10/01/2021 Periprosthetic fracture around internal prosthetic joint 09/25/2021 Hypertensive urgency 09/25/2021 Gait instability 09/25/2021 Intractable neuropathic pain of left knee 09/25/2021 Hyponatremia 09/25/2021 Hyperglycemia 09/25/2021 Thoracic aortic aneurysm without rupture (HCC) 09/09/2021 Essential hypertension 12/14/2020 LV dysfunction 12/14/2020 Ectopic cardiac beats 12/14/2020 Chronic obstructive pulmonary disease (HCC) 09/19/2019 Hydronephrosis, bilateral 01/03/2019 OAB (overactive bladder) 12/08/2018 Primary osteoarthritis of right hip 06/14/2017 History of total left hip replacement 06/14/2017 Presence of retained hardware 06/14/2017 Hypercholesterolemia 11/11/2015 Osteoporosis 11/11/2015 History of Present Illness: BELKIS Adore Walter is a 88 y.o. who presents to the emergency department with altered mental status. EMS noted that she was hypotensive at the facility where she resides. EMS was called and they noted that she was normotensive and even hypertensive for them. When they arrived here, she became hypotensive and slumped over in the cot. Patient only complaining of left shoulder pain that she says has been there for weeks. Has no pain anywhere else. Patient states that she feels tired and sleepy. She does have a history of COPD and heart failure Patient Complaint: wants coffee Pain: RN managing pain. PPE Worn: surgical mask, gloves Objective Bedside swallow eval completed. Oral Motor Mechanism Adequate structure, strength, and ROM in lingual, labial, and buccal musculature. Adequate dentition has upper and lower dentures. Oral Hygiene: moist, clean Swallowing Examination PO Trials - thin liquid, (straw, fed by clinician) - puree, (teaspoon, self administered) - regular solids Oral Phase Pt with adequate oral receipt of PO trials. No anterior spillage. Mastication appeared complete, organized, and timely. Oral transit time appears WFL. No oral residue. Pharyngeal Phase Hyolaryngeal excursion clinically appears adequate and timely per palpation. 1-2 swallows palpated per bolus, likely indicative of adequate pharyngeal clearance. No overt clinical s/s airway penetration as evidenced by no cough, no throat clear, and no change in vocal quality. Coughing noted at end of session but does not appear related to po intake Education Education Given: role of therapy, diet recommendations Given To: patient Response: verbalizes understanding Goals Patient Stated Goal: wants coffee Encounter Problems Encounter Problems (Active) Swallowing Patient will tolerate the least restrictive diet consistency to allow for safe consumption of daily meals Start: 10/24/23 Patient will tolerate recommended food and liquid consistencies without clinical signs and symptoms of aspirations Start: 10/24/23 Therapy Time TENNIS PLAYER Individual Minutes Time In: 1005 Time Out: 1028 Minutes: 23 INGRID Schmidt Nutrition Assessment Type and Reason for Visit: Initial, Consult Nutrition Recommendations/Plan: Continue diet as tolerated - Easy to Chew per TENNIS PLAYER 10/24/23 Per mnt protocol will initiate Magic cup bid (290 kcal, 9 gm protein) and Ensure Compact daily ( 220 kcals, 9 gm prot) -until po intake consistent/optimal Please continue to document % meal and supplement intakes in RN Flowsheets RD to monitor po intake, labs, weight, revisit for interview and exam as able; follow up weekly Malnutrition Assessment: Malnutrition Status: Insufficient data (unable to assess on visit) Context: Acute Illness Findings of the 6 clinical characteristics of malnutrition: Energy Intake: (unable to assess at this time; poor intake 5 or more days per consult; diet adv today) Weight Loss: No significant weight loss (per limited wt records) Body Fat Loss: Unable to assess Muscle Mass Loss: Unable to assess Fluid Accumulation: Mild Extremities (per records) Nutrition Assessment: 88 y.o. female admitted from SNF with hypotension/ altered mental status, influenza A infection, NSTEMI, possible UTI. pmhx copd, chf. Staff in room with pt on visits today, unable to interview -improving mental status and diet advance noted Estimated Daily Nutrient Needs: Energy Requirements Based On: Kcal/kg Weight Used for Energy Requirements: [place] Weight for Energy Calculation (kg): 48 kg Total Energy Requirements (kcals/day): 9063-9436 (25-30) Weight Used for Protein Requirements: [place] Weight in Kg Used for Protein Requirements: 48 kg Estimated Total Protein (g/day): 48-58 (1.0-1.2) Estimated Daily Total Fluid (ml/day): per MD Nutrition Related Findings: BLE nonpitting edema, +bm 10/23. bun 31/cr 1.97, gfr 24.4, bgluc 144, alb 2.9. no wt loss noted however limited wt records for assessment Wound Type: None 10/24/23 62.1 kg (137 lb) 09/16/21 57.6 kg (127 lb) 09/09/21 56.7 kg (125 lb) 07/01/21 57.4 kg (126 lb 9.6 oz) Current Nutrition Therapies: Adult diet Easy to Chew Current Oral Intake Average Meal Intake: 76-100% (diet adv today noted) Average Supplements Intake: None Ordered Anthropometric Measures: Height: 154.9 cm (5' 1") Current Body Weight: 62.1 kg (137 lb) Weight Source: Bed Scale Admission Body Weight: 62.1 kg (137 lb) (stated) [place] Body Weight (lbs) (Calculated): 105 lbs [place] Body Weight (Kg) (Calculated): 48 kg % [place] Body Weight (Calculated): 130.5 % BMI (kg/m2) (Calculated): 25.9 BMI Categories: Normal Weight (BMI 22.0 to 24.9) age over 65 Nutrition Diagnosis: Increased nutrient needs related to (acute illness) as evidenced by (medical condition) Nutrition Interventions: Nutrition Education/Counseling: No recommendation at this time Coordination of Nutrition Care: Continue to monitor while inpatient Goals: Goals: PO intake 75% or greater, prior to discharge Nutrition Monitoring and Evaluation: Behavioral-Environmental Outcomes: None Identified Food/Nutrient Intake Outcomes: Food and Nutrient Intake, Supplement Intake Physical Signs/Symptoms Outcomes: Biochemical Data, Chewing or Swallowing, GI Status, Fluid Status or Edema, Hemodynamic Status, Nutrition Focused Physical Findings, Skin, Weight Discharge Planning: Continue current diet Carla Pool RD Contact: *[phone] or via Secure Chat SEP- CORE MEASURE DATA SIRS Criteria Sepsis Criteria Severe Sepsis Criteria Septic Shock Criteria Must meet 2: [x] Temperature > 100.4 F (38 C) or < 96.8 F (36 C) [] HR > 90 [x] RR > 20 [] WBC > 12 or < 4 or 10% bands Must be confirmed or suspected to move forward with diagnosis of sepsis. [x] Infection Confirmed or Suspected. [] No infection present. Patient does not meet criteria for Sepsis. Must meet 1: [] Lactate > 2 or [x] Signs of Organ Dysfunction: - SBP < 90 or MAP < 65 - Altered mental status - Creatinine > 2 or increased from baseline - Urine Output < 0.5 ml/kg/hr - Bilirubin > 2 - INR > 1.5 - Platelets < 100,000 - Acute Respiratory Failure as evidenced by new need for NIPPV or mechanical ventilation [] No criteria met for Severe Sepsis. Must meet 1: [] Lactate = or > 4 or [x] SBP < 90 or MAP < 65 for at least two readings in the first hour after fluid bolus administration [] No criteria met for Septic Shock. Patient Vitals from 10/24/23 2301 to 10/25/23 0000 Temp Temp src Pulse Resp SpO2 10/24/23 2332 36.6 C (97.8 F) Oral 56 16 93 % 10/25/23 0000 -- -- 56 19 95 % Recent Labs 10/23/23 2126 10/23/23 2244 10/24/23 0306 10/24/23 0415 10/25/23 0403 WBC 8.7 -- 8.5 -- 8.1 LACTATE -- 1.3 -- 0.7 -- CREATININE 2.17* -- -- 1.97* 1.27* BILITOT 0.8 -- -- 0.6 0.6 PLT 200 -- 214 -- 228 Sepsis Identified at 0325 hours. Fluid Resuscitation Rational: at least 30mL/kg based on entered actual body weight at time of triage Infection Source: Unknown Reassessment Exam: SEPSIS REASSESSMENT I examined the patient 10/24/23 0600 Vital Signs:BP 108/54 (BP Location: Right arm, Patient Position: Lying) Pulse 51 Temp 36.4 C (97.5 F) Resp 18 Ht 1.549 m (5' 1") Wt 62.1 kg (137 lb) SpO2 95% BMI 25.89 kg/m Cardiac examination significant for: Tachycardia Pulmonary examination significant for: Clear lung almodovar Capillary refill is: brisk Peripheral Pulse is: 2+ Skin is: Normal ADARSH Medina CNP documented in this encounter [facility] 10-29-2023 Note Formatting of this n ote might be different from the original. Dc to [facility] this afternoon at 4:00. [facility] to transport. Ambulance transport form completed. [facility] messaged [facility] to notify them of dc time. Voicemail message left for patients taz Nye to notify him of dc time. Report number provided to the bedside nurse. [facility] 10-29-2023 Note Formatting of this n ote might be different from the original. Dc to [facility] this afternoon at 4:00. [facility] to transport. Ambulance transport form completed. [facility] messaged [facility] to notify them of dc time. Voicemail message left for patients taz Nye to notify him of dc time. Report number provided to the bedside nurse. [facility] 10-29-2023 Miscellaneous Notes Dc to [facility] this afternoon at 4:00. [facility] to transport. Ambulance transport form completed. [facility] messaged [facility] to notify them of dc time. Voicemail message left for patients taz Nye to notify him of dc time. Report number provided to the bedside nurse. Discharge med list transmitted to return back to [facility] via [facility] per [facility] request. Images from the original note were not included. Care Management Progress Note Patient discharging back to [facility] today. SHOPPING INSPECTOR tasked to send final DC summary, AVS and Mar to facility. 2 marielle SW tasked to arrange transportation to the facility, bedside RN following for time. Facility updated on plan. Patient informed over the phone regarding discharge back to [facility] today. Discharge Milestones and Delays Expected Date/Time: 10/29/2023 Disposition[facility] Transport status: No current request Discharge Milestones Place discharge order Complete med reconciliation Case mgmt discharge readiness Clinical Stability Diagnsotic Workup Expected Discharge History Expected Date/Time Set By Reviewed At 10/29/2023 Paco Casarez DO 10/29/2023 11:16 AM PT/OT today Now Medical status 10/26- flu/sepsis workup. On 2L oxygen. AxO 3 [facility] return 10/27 picc placement and opat. Final day of blood cultures, negative x 2 days today." 10/29/2023 Tova Gaona RN 10/28/2023 12:05 PM 10/29/2023 Tova Gaona RN 10/28/2023 12:04 PM PT/OT today Now Medical status 10/26- flu/sepsis workup. On 2L oxygen. AxO 3 [facility] return" 10/28/2023 JANET Jameson 10/27/2023 9:45 AM 10/28/2023 JANET Jameson 10/27/2023 9:45 AM PT/OT today Now Medical status 10/26- flu/sepsis workup. On 2L oxygen. AxO 3" 10/28/2023 JANET Rodriguez 10/26/2023 10:01 AM PT/OT today Now Medical status" 10/28/2023 April Sykes RN 10/26/2023 8:55 AM 10/26/2023 JANET Rodriguez 10/25/2023 10:13 AM 10/26/2023 Aaron Mejia APRN - EXECUTIVE CHAIRMAN 10/24/2023 1:12 AM 10/26/2023 Aaron Mejia APRN - EXECUTIVE CHAIRMAN 10/23/2023 11:54 PM Length of Stay (Days): 6 GMLOS: No GMLOS Documented Images from the original note were not included. Care Management Progress Note Chart reviewed. Patient remains on 2 east for treatment of septic shock due to streptococcus Parasanguinis bacteremia and influenza A pneumonia. Blood cultures pending. ID anticipates 2 weeks IvABX; waiting for opat. Plan for Picc placement tomorrow 10/28. Blood cultures negative x 48 hours. DC plan: Return to [facility], no auth needed to return. Discharge Milestones and Delays Expected Date/Time: 10/29/[address] discharge order Complete med reconciliation Case mgmt discharge readiness Clinical Stability Diagnsotic Workup Expected Discharge History Expected Date/Time Set By Reviewed At 10/29/2023 Tova Gaona RN 10/28/2023 12:05 PM PT/OT today Now Medical status 10/26- flu/sepsis workup. On 2L oxygen. AxO 3 [facility] return 10/27 picc placement and opat. Final day of blood cultures, negative x 2 days today." 10/29/2023 Tova Gaona RN 10/28/2023 12:04 PM PT/OT today Now Medical status 10/26- flu/sepsis workup. On 2L oxygen. AxO 3 [facility] return" 10/28/2023 JANET Jameson 10/27/2023 9:45 AM 10/28/2023 JANET Jameson 10/27/2023 9:45 AM PT/OT today Now Medical status 10/26- flu/sepsis workup. On 2L oxygen. AxO 3" 10/28/2023 JANET Rodriguez 10/26/2023 10:01 AM PT/OT today Now Medical status" 10/28/2023 April Sykes RN 10/26/2023 8:55 AM 10/26/2023 JANET Rodriguez 10/25/2023 10:13 AM 10/26/2023 Aaron ADARSH Clement CNP 10/24/2023 1:12 AM 10/26/2023 ADARSH Medina CNP 10/23/2023 11:54 PM Length of Stay (Days): 5 GMLOS: No GMLOS Documented Images from the original note were not included. Care Management Progress Note Chart reviewed. Patient remains on 2 east for treatment of septic shock due to streptococcus parasanguinis bacertemia and influenza A pneumonia. Blood cultures pending. Recent note from 10/25 states continue ceftriaxone for 2 weeks. Awaiting OPAT and picc placement if final plan is IVABX at DC. DC plan: [facility], return when ready. No auth needed to return. TCC section of JENNY completed. Discharge Milestones and Delays Expected Date/Time: 10/28/[address] discharge order Complete med reconciliation Case mgmt discharge readiness Clinical Stability Diagnsotic Workup Expected Discharge History Expected Date/Time Set By Reviewed At 10/28/2023 JANET Jameson 10/27/2023 9:45 AM PT/OT today Now Medical status 10/26- flu/sepsis workup. On 2L oxygen. AxO 3 [facility] return" 10/28/2023 JANET Jameson 10/27/2023 9:45 AM PT/OT today Now Medical status 10/26- flu/sepsis workup. On 2L oxygen. AxO 3" 10/28/2023 JANET Rodriguez 10/26/2023 10:01 AM PT/OT today Now Medical status" 10/28/2023 April Sykes RN 10/26/2023 8:55 AM 10/26/2023 JANET Rodriguez 10/25/2023 10:13 AM 10/26/2023 ADARSH Medina CNP 10/24/2023 1:12 AM 10/26/2023 ADARSH Medina CNP 10/23/2023 11:54 PM Length of Stay (Days): 4 GMLOS: No GMLOS Documented ICU Transfer Checklist Transfer Med Reconciliation (resume home meds if able, convert to PO if able) Complete Antibiotics (name, indication, duration, convert to PO if able) Yes, addressed in today's progress note Steroid (indication, duration, convert to PO if able) Yes, addressed in today's progress note Anticipated [place] Medications (ICU initiated) or Dose Changes and Indication Anticipate that patient may need prolonged course of antibiotics for bacteremia Permanently Discontinued Home Medications and Reason for medication contraindication No Hoffman Catheter (please remove if able. Note: place DC order) No Central Line (please remove if able. Note: place DC order) No Transfer Discussed with: Dr. Casarez If additional questions for ICU team within 24 hours of ICU transfer, page #[phone] for clarifications. PATIENT TRANSFERRED OUT OF ICU PATIENT ACCEPTED TO [facility] Hypotensive on admission, requiring pressor support. Sepsis with strep bacteremia. On broad coverage abx ,repeat cultures pending. ID to follow. Off pressors as of yesterday. Stable for transfer out of ICU. Discussed with Medicare Biller, Dr. Goss. Images from the original note were not included. Care Management Progress Note Patient remains on 4S for influenza A, HTN and AMS Clinical updates: Also dx with NSTEMI, however Trops are neg. AMS has resolved, patient is A&Ox4 per floor nurse. Remains on Levophed for HTN. Came from [facility] ([facility] will need PT and OT orders prior to return. Clinical team notified. Discharge plan: [facility] vs SNF Discharge obstacles: Awaiting clinical stability TCC will continue to follow. Discharge Milestones and Delays Expected Date/Time: 10/26/[address] discharge order Complete med reconciliation Case mgmt discharge readiness Clinical Stability Diagnsotic Workup Expected Discharge History Expected Date/Time Set By Reviewed At 10/26/2023 JANET Rodriguez 10/25/2023 10:13 AM 10/26/2023 ADARSH Medina CNP 10/24/2023 1:12 AM 10/26/2023 ADARSH Medina CNP 10/23/2023 11:54 PM Length of Stay (Days): 2 GMLOS: No GMLOS Documented 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 Name/Contact Information: Popeye Smith Cognition/Language: Unable to Assess (patient on droplet isolation in ICU - phoned Popeye smith, to complete IA) Permission given to speak with patient inside sales account representative/caregiver as indicated: Confirmation of Payer with patient/family: Yes Payer Name: [place] [place]: No Confirmation of Primary Care Physician: Confirmed PCP Name: "the head doctor at the place she lives" Seen in last 2 years?: Yes Primary Caregiver: Other (Comment) (F staff) If assistance needed, confirmed caregiver ready, willing and able to care for patient at discharge: Yes Confirmed with: [facility] staff Living Arrangements Current Residence: Number of Floors Number of Entry Steps: Bed/Bath Levels: Facility: Long-Term/[facility] Care Facility Name: [facility] Plan to Return: Yes Lives with: Other (Comment) (other [facility] residents) Support Systems: Children, Family members, Comments (Other) (ECF staff) Activities of Daily Living Ambulation: Total Care (wheelchair) Bathing/Dressing: Assistance Elimination/Continence/Toileting: Assistance Feeding: Independent Who Assists with Activities of Daily Living: ECF staff Instrumental Activities of Daily Living Prescription Coverage: Yes Pharmacy Used: [facility]' pharmacy Medication Management: Medication dispenser Who assists with medication securing and setup?: ECF staff Transportation/Shopping: Assistance Provider Transportation/Shopping Assistance Provider Name: Ambulance Transportation Mode: Payer provided transport service Needs Assistance with Transportation at Discharge: Yes (SW will set up transport for patient back to [facility]) Meal Preparation: Assistance Provider Meal Prep Assistance Provider Name: ECF staff Laundry/Cleaning: Assistance Provider Laundry/Cleaning Assistance Provider Name: ECF staff Finances/Bill Paying: Assistance Provider Finances/Bill Payer Assistance Provider Name: Popeye Smith Communication: Independent Types of Care Services/Equipment Utilized Care Services: (N/A) Dialysis Type: NA Durable Medical Equipment: Wheelchair (standard or power), Hospital Bed Patient's Goal/Discharge Plan Patient expects to be discharged to: return to [facility] Discharge Planning Actions: Continue to follow, Penitentiary Facility referral indicated [place] of choice: [place] choice discussed Patient's Choice Rights and [employer] and Collaborative Relationships Disclosed as Indicated for Post-Acute Care: Interdisciplinary Team Engagement: Social Work Referral for: Additional Information: Phoned sonPopeye, at [phone]. Per previous note, for call back. Son returned call. Introduced self and role. Reason for admission: altered mental status. EMS noted patient was hypotensive upon arrival to facility. Labs significant for Na 131, Bicarb 21, BUN 31, SCr 2.17, Glucose 125, Trop 0.993, BNP 6090, lactic 1.3, H&H 11.4/34.5, WBC 8.7. EKG with SR, no ST abnls. She presented hypotensive with SBP 62. She remained hypotensive despite LR bolus. ICU was consulted for cardiogenic shock but lactic of 1 and being warm/dry did not support shock. However, due to hypotension and use of vasopressors, admitted to MICU where she remains. Arterial line inserted. Found to have encephalopathy, shock of unclear etiology, influenza A infection, NSTEMI. Mental status appears improved this morning. Consults: Critical Care, Cardio, TENNIS PLAYER PT/OT: therapies not ordered at this time Current DCP: return to [facility] Submitted return referral via [facility]. Discharge planning needs discussed. Son denied any needs. Son understands discharge plan. TCC will continue to follow. Gonzalez Gonzalez RN Patient admitted with AMS and hypotension. On droplet isolation for influenza. Phoned son, Popeye Walter, at [phone] to attempt to complete IA. Received VM. Left HIPAA appropriate message requesting call back. Provided TCC's cell number and working hours. Assured son someone would follow up tomorrow if he is unable to call before end of business today. TCC will continue to follow. H&P reviewed, elderly female admitted from SNF for encephalopathy, shock of unclear etiology, influenza A infection, NSTEMI. Mental status appears improved this morning. She is resting comfortably, Levophed requirements slowly coming down, I administered an additional 500 mL bolus of LR. Continue broad spectrum antibiotics and Tamiflu. Continue heparin infusion, troponin down-trending, she denies chest pain, formal echo and cardiology evaluation pending. Stress dose steroids for 3 days. UA looks concerning for UTI, culture in process. Will continue to monitor. Addendum 12:19 PM: Discussed with cardiology, agree troponin elevation likely demand mediated, recommended stopping heparin infusion. Will follow-up formal echo. documented in this encounter [facility] 10-29-2023 Note Formatting of this n ote might be different from the original. Discharge med list transmitted to return back to [facility] TCC request. [facility] 10-29-2023 Note Formatting of this n ote might be different from the original. Discharge med list transmitted to return back to [facility] via [facility] per TCC request. [facility] 10-29-2023 Note Formatting of this n ote is different from the original. Images from the original note were not included. Care Management Progress Note Patient discharging back to [facility] today. [facility] tasked to send final DC summary, AVS and Mar to facility. [facility] tasked to arrange transportation to the facility, bedside RN following for time. Facility updated on plan. Patient informed over the phone regarding discharge back to [facility] today. Discharge Milestones and Delays Expected Date/Time: 10/29/2023 Disposition: Penitentiary Facility Transport status: No current request Discharge Milestones Place discharge order Complete med reconciliation Case mgmt discharge readiness Clinical Stability Diagnsotic Workup Expected Discharge History Expected Date/Time Set By Reviewed At 10/29/2023 Paco Casarez DO 10/29/2023 11:16 AM PT/OT today Now Medical status 10/26- flu/sepsis workup. On 2L oxygen. AxO 3 [facility] return 10/27 picc placement and opat. Final day of blood cultures, negative x 2 days today." 10/29/2023 Tova Gaona RN 10/28/2023 12:05 PM 10/29/2023 Tova Gaona RN 10/28/2023 12:04 PM PT/OT today Now Medical status 10/26- flu/sepsis workup. On 2L oxygen. AxO 3 [facility] return" 10/28/2023 JANET Jameson 10/27/2023 9:45 AM 10/28/2023 JANET Jameson 10/27/2023 9:45 AM PT/OT today Now Medical status 10/26- flu/sepsis workup. On 2L oxygen. AxO 3" 10/28/2023 JANET Rodriguez 10/26/2023 10:01 AM PT/OT today Now Medical status" 10/28/2023 April Sykes RN 10/26/2023 8:55 AM 10/26/2023 JANET Rodriguez 10/25/2023 10:13 AM 10/26/2023 Aaron Mejia APRN - JULES 10/24/2023 1:12 AM 10/26/2023 Aaron Mejia APRN - JULES 10/23/2023 11:54 PM Length of Stay (Days): 6 GMLOS: No GMLOS Documented [facility] 10-29-2023 Note Formatting of this n ote is different from the original. Images from the original note were not included. Care Management Progress Note Patient discharging back to [facility] today. [facility] tasked to send final DC summary, AVS and Mar to facility. [facility] tasked to arrange transportation to the facility, bedside RN following for time. Facility updated on plan. Patient informed over the phone regarding discharge back to [facility] today. Discharge Milestones and Delays Expected Date/Time: 10/29/2023 Disposition: Penitentiary Facility Transport status: No current request Discharge Milestones Place discharge order Complete med reconciliation Case mgmt discharge readiness Clinical Stability Diagnsotic Workup Expected Discharge History Expected Date/Time Set By Reviewed At 10/29/2023 Paco Casarez DO 10/29/2023 11:16 AM PT/OT today Now Medical status 10/26- flu/sepsis workup. On 2L oxygen. AxO 3 [facility] return 10/27 picc placement and opat. Final day of blood cultures, negative x 2 days today." 10/29/2023 Tova Gaona RN 10/28/2023 12:05 PM 10/29/2023 Tova Gaona RN 10/28/2023 12:04 PM PT/OT today Now Medical status 10/26- flu/sepsis workup. On 2L oxygen. AxO 3 [facility] return" 10/28/2023 JANET Jameson 10/27/2023 9:45 AM 10/28/2023 JANET Jameson 10/27/2023 9:45 AM PT/OT today Now Medical status 10/26- flu/sepsis workup. On 2L oxygen. AxO 3" 10/28/2023 JANET Rodriguez 10/26/2023 10:01 AM PT/OT today Now Medical status" 10/28/2023 April Sykes RN 10/26/2023 8:55 AM 10/26/2023 JANET Rodriguez 10/25/2023 10:13 AM 10/26/2023 Aaron Mejia APRN - EXECUTIVE CHAIRMAN 10/24/2023 1:12 AM 10/26/2023 Aaron Mejia APRN - EXECUTIVE CHAIRMAN 10/23/2023 11:54 PM Length of Stay (Days): 6 GMLOS: No GMLOS Documented [facility] 10-29-2023 Hospital course Narrative Images from the original note were not included. Hospitalist Discharge Summary Adore Walter : 1935 Admit date: 10/23/2023 Discharge date: 10/29/2023 Admitting Physician: Paco Casarez DO Primary Care Physician: Chris Arora DO (Inactive) Visit Status: admission Code Status: Full Code Discharge Diagnoses: Sepsis with shock, POA Streptococcus parasanguinis bacteremia Influenza A CAP Acute COPD exacerbation with hypoxic respiratory failure Normocytic anemia HLD HTN Elevated Troponin, demand ischemia hypokalemia Hospital Course: patient presenting with AMS and hypotension from SNF. She was admitted to ICU with vasopressor support. She was found to have elevated troponin 0.9, cardiology evaluated, deemed to be demand related elevated troponin. Echo showing preserved EF with no regional wall motion abnormalities. Patient covered with broad spectrum abx. Found to be positive for Flu A, completed course of tamiflu. Blood cultures positive for streptococcus parasanguinis bacteremia. ID on consult, patient to be continued on IV rocephin following negative repeat blood cultures. Patient had PICC placed on 10/29/23. She is to continue Rocephin 2g daily to complete through 11/10/23. She is to follow up with PCP and cardiology outpatient in 1-2 weeks. She is discharged to SNF in improved and stable condition on 10/29/23. Consults: IP CONSULT TO DIETITIAN PHARMACY TO DOSE VANCO IP CONSULT TO CARDIOLOGY IP CONSULT TO INFECTIOUS DISEASES Discharge Instructions: Diet: Adult diet Easy to Chew Activity: as tolerated Recommended Outpatient Tests: Disposition: Patient discharged in stable condition to [facility] LABS: CBC: Recent Labs 10/27/2331910/28/2344810/29/23219 WBC 5.1 4.3 4.6 RBC 3.45* 3.56* 3.96 HGB 10.0* 10.4* 11.6* HCT 30.4* 31.3* 35.6 MCV 88.1 87.9 89.9 RDW 14.4 14.7 14.3 PLT 195 166 206 BMP: Recent Labs 10/27/2331910/28/2344810/29/23219 NA 136 136 136 K 3.4* 3.5 3.3* CL 110* 110* 106 CO2 23 24 27 BUN 19* 16 11 CREATININE 0.85 0.89 0.83 GLUCOSE 84 73 82 CALCIUM 8.0* 8.1* 8.4 ANIONGAP 3 1* 4 LIVER PROFILE: Recent Labs 10/27/2331910/28/2344810/29/23219 AST 43 46 37 ALT 21 26 27 BILITOT 0.5 0.5 0.6 ALKPHOS 42 41 46 PROT 4.7* 4.5* 4.9* PT/INR: No results for input(s): "PROTIME", "INR" in the last 72 hours. CARDIAC ENZYMES: No results for input(s): "TROPONINI" in the last 72 hours. Procalcitonin: No results found for: "PROCAL" COVID-19 PCR: No results for input(s): "COVID19" in the last 72 hours. Vitals: BP 137/77 Pulse 70 Temp (!) 35.8 C (96.4 F) (Temporal) Resp 16 Ht 5' 1" (1.549 m) Wt 133 lb 14.4 oz (60.7 kg) SpO2 94% BMI 25.30 kg/m Pulse Ox: SpO2 Av.5 % Min: 92 % Max: 95 % Supplemental O2: O2 Flow Rate (L/min): 2 L/min General appearance: No apparent distress, appears stated age and cooperative with exam, elderly frail female in NAD Respiratory: CTA BL Cardiovascular: Regular rate and rhythm with no murmur Abdomen: Soft, non-tender, non-distended Skin: Skin color, texture, turgor normal. No rashes or lesions. Distal pulses intact in BL LE, no edema in BL LE. Neurologic: grossly non-focal. Discharge Medications: Medication List CONTINUE taking these medications acetaminophen 500 MG tablet Commonly known as: Tylenol calcium carbonate 500 MG chewable tablet Commonly known as: Tums carvedilol 12.5 MG tablet Commonly known as: Coreg DSS 100 MG capsule ergocalciferol 1.25 MG (60699 UT) capsule Commonly known as: Vitamin D2 ferrous sulfate 325 (65 Fe) MG tablet Lidocaine 4 % patch lisinopril 5 MG tablet ondansetron ODT 4 MG disintegrating tablet Commonly known as: Zofran-ODT pantoprazole 40 MG EC tablet Commonly known as: ProtoNix Take 1 tablet (40 mg) by mouth every morning (before breakfast). Do not crush, chew, or split. Start taking on: October 30, 2023 simvastatin 10 MG tablet Commonly known as: Zocor STOP taking these medications gabapentin 100 MG capsule Commonly known as: Neurontin Where to Get Your Medications Information about where to get these medications is not yet available Ask your nurse or doctor about these medications pantoprazole 40 MG EC tablet Recommended Follow-up: PCP and cardiology outpatient in 1-2 weeks. @[email or web address]@ Complexity of Follow up: [] Moderate Complexity: follow up within 7-14 calendar days (68828) [x] Severe Complexity: follow up within 7 calendar days (75628) Follow up Testing, Pending results or Referrals at Transitional Care Visit: [x] yes [] no Instructions to MA: Please call patient on day after discharge (must document patient contacted within 2 business days of discharge). Follow up questions for MA: 1. Did you get medications filled and taking them as instructed from discharge? 2. Are you following your discharge instructions from your hospital stay? 3. Please confirm patient is scheduled for a follow up appointment within the above time frame. Signed: Paco Casarez DO [facility] 10/29/2023, 11:16 AM Total time Spent on Discharge: 32 minutes documented in this encounter [facility] 10-28-2023 Note Formatting of this n ote is different from the original. Images from the original note were not included. Care Management Progress Note Chart reviewed. Patient remains on 2 east for treatment of septic shock due to streptococcus Parasanguinis bacteremia and influenza A pneumonia. Blood cultures pending. ID anticipates 2 weeks IvABX; waiting for opat. Plan for Picc placement tomorrow 10/28. Blood cultures negative x 48 hours. DC plan: Return to [facility], no auth needed to return. Discharge Milestones and Delays Expected Date/Time: 10/29/[address] discharge order Complete med reconciliation Case mgmt discharge readiness Clinical Stability Diagnsotic Workup Expected Discharge History Expected Date/Time Set By Reviewed At 10/29/2023 Tova Gaona RN 10/28/2023 12:05 PM PT/OT today Now Medical status 10/26- flu/sepsis workup. On 2L oxygen. AxO 3 [facility] return 10/27 picc placement and opat. Final day of blood cultures, negative x 2 days today." 10/29/2023 Tova Gaona RN 10/28/2023 12:04 PM PT/OT today Now Medical status 10/26- flu/sepsis workup. On 2L oxygen. AxO 3 [facility] return" 10/28/2023 JANET Jameson 10/27/2023 9:45 AM 10/28/2023 JANET Jameson 10/27/2023 9:45 AM PT/OT today Now Medical status 10/26- flu/sepsis workup. On 2L oxygen. AxO 3" 10/28/2023 JANET Rodriguez 10/26/2023 10:01 AM PT/OT today Now Medical status" 10/28/2023 April Sykes RN 10/26/2023 8:55 AM 10/26/2023 JANET Rodriguez 10/25/2023 10:13 AM 10/26/2023 Aaron Mejia, ADARSH - JULES 10/24/2023 1:12 AM 10/26/2023 Aaron Mejia, 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 CHAIRMAN 10/23/2023 11:54 PM Length of Stay (Days): 5 GMLOS: No GMLOS Documented [facility] 10-28-2023 Note Formatting of this n ote is different from the original. Images from the original note were not included. Care Management Progress Note Chart reviewed. Patient remains on 2 east for treatment of septic shock due to streptococcus Parasanguinis bacteremia and influenza A pneumonia. Blood cultures pending. ID anticipates 2 weeks IvABX; waiting for opat. Plan for Picc placement tomorrow 10/28. Blood cultures negative x 48 hours. DC plan: Return to [facility], no auth needed to return. Discharge Milestones and Delays Expected Date/Time: 10/29/[address] discharge order Complete med reconciliation Case mgmt discharge readiness Clinical Stability Diagnsotic Workup Expected Discharge History Expected Date/Time Set By Reviewed At 10/29/2023 Tova Gaona RN 10/28/2023 12:05 PM PT/OT today Now Medical status 10/26- flu/sepsis workup. On 2L oxygen. AxO 3 [facility] return 10/27 picc placement and opat. Final day of blood cultures, negative x 2 days today." 10/29/2023 Tova Gaona RN 10/28/2023 12:04 PM PT/OT today Now Medical status 10/26- flu/sepsis workup. On 2L oxygen. AxO 3 [facility] return" 10/28/2023 JANET Jameson 10/27/2023 9:45 AM 10/28/2023 JANET Jameson 10/27/2023 9:45 AM PT/OT today Now Medical status 10/26- flu/sepsis workup. On 2L oxygen. AxO 3" 10/28/2023 JANET Rodriguez 10/26/2023 10:01 AM PT/OT today Now Medical status" 10/28/2023 April Sykes RN 10/26/2023 8:55 AM 10/26/2023 JANET Rodriguez 10/25/2023 10:13 AM 10/26/2023 ADARSH Medina CNP 10/24/2023 1:12 AM 10/26/2023 ADARSH Medina CNP 10/23/2023 11:54 PM Length of Stay (Days): 5 GMLOS: No GMLOS Documented [facility] 10-27-2023 Note Formatting of this n ote is different from the original. Images from the original note were not included. Care Management Progress Note Chart reviewed. Patient remains on 2 east for treatment of septic shock due to streptococcus parasanguinis bacertemia and influenza A pneumonia. Blood cultures pending. Recent note from 10/25 states continue ceftriaxone for 2 weeks. Awaiting OPAT and picc placement if final plan is IVABX at DC. DC plan: [facility], return when ready. No auth needed to return. TCC section of JENNY completed. Discharge Milestones and Delays Expected Date/Time: 10/28/[address] discharge order Complete med reconciliation Case mgmt discharge readiness Clinical Stability Diagnsotic Workup Expected Discharge History Expected Date/Time Set By Reviewed At 10/28/2023 JANET Jameson 10/27/2023 9:45 AM PT/OT today Now Medical status 10/26- flu/sepsis workup. On 2L oxygen. AxO 3 [facility] return" 10/28/2023 JANET Jameson 10/27/2023 9:45 AM PT/OT today Now Medical status 10/26- flu/sepsis workup. On 2L oxygen. AxO 3" 10/28/2023 JANET Rodriguez 10/26/2023 10:01 AM PT/OT today Now Medical status" 10/28/2023 April Sykes RN 10/26/2023 8:55 AM 10/26/2023 JANET Rodriguez 10/25/2023 10:13 AM 10/26/2023 ADARSH Medina CNP 10/24/2023 1:12 AM 10/26/2023 ADARSH Medina CNP 10/23/2023 11:54 PM Length of Stay (Days): 4 GMLOS: No GMLOS Documented [facility] 10-27-2023 Note Formatting of this n ote is different from the original. Images from the original note were not included. Care Management Progress Note Chart reviewed. Patient remains on 2 east for treatment of septic shock due to streptococcus parasanguinis bacertemia and influenza A pneumonia. Blood cultures pending. Recent note from 10/25 states continue ceftriaxone for 2 weeks. Awaiting OPAT and picc placement if final plan is IVABX at DC. DC plan: [facility] [place], return when ready. No auth needed to return. TCC section of JENNY completed. Discharge Milestones and Delays Expected Date/Time: 10/28/[address] discharge order Complete med reconciliation Case mgmt discharge readiness Clinical Stability Diagnsotic Workup Expected Discharge History Expected Date/Time Set By Reviewed At 10/28/2023 JANET Jameson 10/27/2023 9:45 AM PT/OT today Now Medical status 10/26- flu/sepsis workup. On 2L oxygen. AxO 3 [facility] return" 10/28/2023 JANET Jameson 10/27/2023 9:45 AM PT/OT today Now Medical status 10/26- flu/sepsis workup. On 2L oxygen. AxO 3" 10/28/2023 JANET Rodriguez 10/26/2023 10:01 AM PT/OT today Now Medical status" 10/28/2023 April Sykes RN 10/26/2023 8:55 AM 10/26/2023 JANET Rodriguez 10/25/2023 10:13 AM 10/26/2023 ADARSH Medina CNP 10/24/2023 1:12 AM 10/26/2023 ADARSH Medina CNP 10/23/2023 11:54 PM Length of Stay (Days): 4 GMLOS: No GMLOS Documented [facility] 10-27-2023 Hospital Discharge instructions Regi Colindres RN - 10/27/2023 12:28 PM EDT Continuity of Care Form Patient Name: Adore Walter : 1935 Admit date: 10/23/2023 Discharge date: 10/29/23 Code Status Order: Full Code Advance Directives: N Admitting Physician: Paco Casarez DO PCP: Chris Arora DO (Inactive) Discharging Nurse: lucrecia crawford Discharging Hospital Unit/Room#: B2-255/B2-255 A Discharging Unit Emergency Contact: Extended Emergency Contact Information Primary Emergency Contact: Popeye Walter Relation: Child Secondary Emergency Contact: Ketan Walter Relation: Spouse Past Surgical History: Past Surgical History: Procedure Laterality Date HIP SURGERY Right HYSTERECTOMY KNEE SURGERY Bilateral LEG MUSCLE SURGERY (HISTORICAL) Left Immunization History: Immunization History Administered Date(s) Administered Moderna SARS-CoV-2 Vaccination 09/05/2020, 10/03/2020 Pneumococcal Polysaccharide PPSV23 09/29/2016 Active Problems: Medical Problems Problem List * (Principal) NSTEMI (non-ST elevated myocardial infarction) ([facility]/HCC) ([facility]) Essential hypertension Overview Signed 05/14/2022 12:27 PM by Interface, Incoming Problems- [facility] Conversion Will add Coreg 6.5 mg b.i.d. Patient will check blood pressure and send in the readings LV dysfunction Overview Signed 05/14/2022 12:27 PM by Interface, Incoming Problems- [facility] Conversion Coreg 6.25 mg b.i.d. Ectopic cardiac beats Overview Signed 05/14/2022 12:27 PM by Interface, Incoming Problems- [facility] Conversion Review the echocardiogram that was done. Await results of the Holter monitor. 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 Presence of retained hardware Isolation/Infection: Droplet Influenza Nurse Assessment: Last Vital Signs: BP 143/68 (BP Location: Left arm, Patient Position: Lying) Pulse 63 Temp 36.6 C (97.9 F) (Temporal) Resp 20 Ht 1.549 m (5' 1") Wt 62.1 kg (137 lb) SpO2 96% BMI 25.89 kg/m Last documented pain score (0-10 scale): Last Weight: Wt Readings from Last 1 Encounters: 10/24/23 62.1 kg (137 lb) Mental Status: JENNY Patient Mental Status: oriented, alert, coherent, logical, thought processes intact, and able to concentrate and follow conversation IV Access: JENNY IV Access: PICC - site: upper arm right, condition patent and no redness, insertion date: 10/29/2023 Nursing Mobility/ADLs: Walking Minimal assistance Transfer Minimal assistance Bathing Minimal assistance Dressing Minimal assistance Toileting Total assistance Feeding Minimal assistance Financial Internship Total assistance Med Delivery yes Wound Care Documentation and Therapy: Elimination: Continence: Bowel: no Bladder: no Urinary Catheter: None Colostomy/Ileostomy/Ileal Conduit: None Date of Last BM: 10/28/23 Intake/Output Summary (Last 24 hours) at 10/27/2023 1228 Last data filed at 10/27/2023 1100 Gross per 24 hour Intake 600 ml Output -- Net 600 ml I/O last 3 completed shifts: In: 250 (4 mL/kg) [P.O.:240; I.V.:10 (0.2 mL/kg)] Out: 600 (9.7 mL/kg) [Urine:600 (0.3 mL/kg/hr)] Weight: 62.1 kg Safety Concerns: at risk for falls Impairments/Disabilities: vision Nutrition Therapy: Current Nutrition Therapy: Oral diet: dysphagia 3 advanced Routes of Feeding: oral Liquids: no restrictions Daily Fluid Restriction: no Last Modified Barium Swallow with Video (Video Swallowing Test): not done Treatments at the Time of Hospital Discharge: Respiratory Treatments: Oxygen Therapy: is not on home oxygen therapy. Ventilator: No ventilator support Rehab Therapies: physical therapy and occupational therapy Weight Bearing Status/Restrictions: no restriction Other Medical Equipment (for information only, NOT a DME order): wheeled walker Other Treatments: Patient's personal belongings (please select all that are sent with patient): glasses RN SIGNATURE: MANAGEMENT/SOCIAL WORK SECTION Inpatient Status Date: 10-23-2023 Readmission Risk Assessment Score: @READMISSIONRISKDETAILS@ Discharging to Facility/ Agency Name: [facility] Address: [address] [place] [address] Fax: Dialysis Facility (if applicable) Name: Address: Dialysis Schedule: Phone: Fax: Furnace Installer/Chuck Wagon Driver signature: ICIAN SECTION Prognosis: excellent Condition at Discharge: stable Rehab Potential (if transferring to Rehab): excellent Recommended Labs or Other Treatments After Discharge: none Physician Certification: I certify the above information and transfer of Adore Walter is necessary for the continuing treatment of the diagnosis listed and that she requires group home facility for less than 30 days. Update Admission H&P: No change in H&P PHYSICIAN SIGNATURE: documented in this encounter [facility] 10-26-2023 Consult note Associated Order (s): IP CONSULT TO INFECTIOUS DISEASES Images from the original note were not included. [facility] - Infectious Diseases Attending Consult Note Reason for Consult: Septic shock, Streptococcus parasanguinis bacteremia, pneumonia due to influenza A. History of Present Illness: 88 y/o female was admitted to ICU on 10/24/23 from SNF with complaints of change in mentation and hypotension. In ED, on presentation, her BP was 62/47, had syncopal episode once moved to ED cot, had episodes of consciousness and immediatly falling back to sleep, labs showed elevated SCr 2.17, hypoalbuminemia (2.9), pyuria (>100 wbc); she remained hypotensive despite LR bolus, she was started on Levophed, heparin gtt was started for NSTEMI. She was seen, found her alert, sitting on bed, c/o lots of phlegm, weakness; denied tooth or gum pain, has dentures; blood cxs grew strep parasanguinis, she appeared debilitated and ill. She was examined; notes, labs and imaging were reviewed and treatment plan was discussed. Past Medical History: Past Medical History: Diagnosis Date CHF (congestive heart failure) (HCC) COPD (chronic obstructive pulmonary disease) (HCC) Past Surgical History: Past Surgical History: Procedure Laterality Date HIP SURGERY Right HYSTERECTOMY KNEE SURGERY Bilateral LEG MUSCLE SURGERY (HISTORICAL) Left Current Medications: Current Facility-Administered Medications Medication Dose Route Frequency Provider Last Rate Last Admin acetaminophen (Tylenol) tablet 1,000 mg 1,000 mg Oral q8h PRN ADARSH Medina CNP aspirin suppository 300 mg 300 mg Rectal Once ADARSH Medina CNP cefTRIAXone (Rocephin) 2,000 mg in sodium chloride 0.9 % 50 mL IVPB Mini-Bag Plus 2,000 mg IntraVENous q24h Tova Goss DO Stopped at 10/26/23 1006 enoxaparin (Lovenox) syringe 30 mg 30 mg SubCUTAneous Daily Tova Goss DO 30 mg at 10/26/23 0927 lactated ringers bolus 1,770 mL 30 mL/kg IntraVENous Once ADARSH Medina CNP ondansetron ODT (Zofran-ODT) disintegrating tablet 4 mg 4 mg Oral q8h PRN ADARSH Medina CNP Or ondansetron (Zofran) injection 4 mg 4 mg IntraVENous q6h PRN ADARSH Medina CNP oseltamivir (Tamiflu) capsule 30 mg 30 mg Oral BID ADARSH Medina CNP 30 mg at 10/26/23 0927 pantoprazole (ProtoNix) EC tablet 40 mg 40 mg Oral qAM AC Tova Goss, DO 40 mg at 10/26/23 0640 senna-docusate sodium (Senokot-S) 8.6-50 MG tablet 1 tablet 1 tablet Oral Daily PRN Aaron A Mejia, 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 CHAIRMAN sodium chloride 0.9 % infusion 5-250 mL/hr IntraVENous PRN Aaron Mejia, 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 CHAIRMAN sodium chloride 0.9% (NS) flush 10 mL 10 mL IntraVENous 2 times per day Aaron Mejia, 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 CHAIRMAN 10 mL at 10/25/23 2100 sodium chloride 0.9% (NS) flush 10 mL 10 mL IntraVENous PRN Aaron Mejia, 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 CHAIRMAN sodium chloride 0.9% (NS) flush 5-40 mL 5-40 mL IntraCATHeter q8h Aaron Mejia, 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 CHAIRMAN 10 mL at 10/26/23 0206 sodium chloride 0.9% (NS) flush 5-40 mL 5-40 mL IntraVENous PRN Aaron Barriosson, 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 CHAIRMAN Allergies: No Known Allergies Social History: Social History Socioeconomic History Marital status: Spouse name: Not on file Number of children: Not on file Years of education: Not on file Highest education level: Not on file Occupational History Not on file Tobacco Use Smoking status: Former Packs/day: 0.50 Years: 35.00 Additional pack years: 0.00 Total pack years: 17.50 Types: Cigarettes Start date: 1956 Quit date: 1991 Years since quittin.2 Smokeless tobacco: Never Substance and Sexual Activity Alcohol use: Yes Comment: obdulia bullard Drug use: Never Sexual activity: Not on file Other Topics Concern Not on file Social History Narrative Not on file Social Determinants of Health Financial Resource Strain: Low Risk (05/26/2022) Overall Financial Resource Strain (CARDIA) Difficulty of Paying Living Expenses: Not hard at all Food Insecurity: No Food Insecurity (05/26/2022) Hunger Vital Sign Worried About Running Out of Food in the Last Year: Never true Ran Out of Food in the Last Year: Never true Transportation Needs: Not on file Physical Activity: Not on file Stress: Not on file Social Connections: Not on file Intimate Partner Violence: Not At Risk (10/24/2023) Humiliation, Afraid, Rape, and Kick questionnaire Fear of Current or Ex-Partner: No Emotionally Abused: No Physically Abused: No Sexually Abused: No Housing Stability: Not on file Family History: No family history on file. Review of Systems: Review of Systems Constitutional: Positive for activity change and fatigue. HENT: Negative for ear pain and sinus pain. Eyes: Negative for pain. Respiratory: Positive for cough and shortness of breath. Cardiovascular: Negative for chest pain. Gastrointestinal: Negative for abdominal pain and diarrhea. Endocrine: Negative for polyphagia. Genitourinary: Negative for dysuria. Musculoskeletal: Negative for arthralgias. Skin: Negative for color change. Neurological: Positive for dizziness, syncope and weakness. Psychiatric/Behavioral: Negative for agitation. Vitals: Patient Vitals for the past 24 hrs: Temp Temp src Pulse Resp SpO2 10/26/23 0800 -- -- 50 18 93 % 10/26/23 0752 36.4 C (97.5 F) Oral -- -- -- 10/26/23 0700 -- -- 53 23 96 % 10/26/23 0530 -- -- 58 19 94 % 10/26/23 0500 -- -- 61 19 94 % 10/26/23 0430 -- -- 52 17 96 % 10/26/23 0421 -- -- 51 17 94 % 10/26/23 0419 -- -- 53 18 94 % 10/26/23 0328 36.9 C (98.4 F) Oral -- -- -- 10/26/23 0310 -- -- (!) 47 17 95 % 10/26/23 0300 -- -- 59 17 96 % 10/26/23 0250 -- -- 50 16 96 % 10/26/23 0240 -- -- 54 19 95 % 10/26/23 0230 -- -- 67 15 96 % 10/26/23 0220 -- -- 67 25 94 % 10/26/23 0210 -- -- 61 17 96 % 10/26/23 0200 -- -- 61 19 94 % 10/26/23 0130 -- -- 57 18 94 % 10/26/23 0100 -- -- 58 19 93 % 10/26/23 0030 36.9 C (98.4 F) Oral 53 18 94 % 10/26/23 0000 -- -- 55 20 97 % 10/25/23 2330 -- -- 64 20 93 % 10/25/23 2230 -- -- (!) 49 12 95 % 10/25/23 2200 -- -- 66 18 95 % 10/25/23 2130 -- -- 68 17 94 % 10/25/23 2100 -- -- 68 21 96 % 10/25/231999 -- -- 72 -- 99 % 10/25/23 1945 36.5 C (97.7 F) Oral 57 -- 93 % 10/25/23 1900 -- -- 65 -- 92 % 10/25/23 1815 -- -- 61 -- 98 % 10/25/23 1800 -- -- 68 -- 100 % 10/25/23 1730 -- -- 60 -- 95 % 10/25/23 1700 -- -- 64 -- 94 % 10/25/23 1630 -- -- 68 -- 94 % 10/25/23 1624 -- -- 70 -- 92 % 10/25/23 1600 36.1 C (97 F) Oral 66 -- 95 % 10/25/23 1530 -- -- 58 -- 95 % 10/25/23 1500 -- -- 62 -- 98 % 10/25/23 1415 -- -- 55 18 95 % 10/25/23 1400 -- -- 70 19 94 % Physical Exam: Physical Exam Vitals and nursing note reviewed. Constitutional: Appearance: She is ill-appearing. HENT: Head: Normocephalic and atraumatic. Nose: Nose normal. Mouth/Throat: Mouth: Mucous membranes are moist. Pharynx: Oropharynx is clear. Eyes: Extraocular Movements: Extraocular movements intact. Pupils: Pupils are equal, round, and reactive to light. Cardiovascular: Rate and Rhythm: Normal rate and regular rhythm. Pulmonary: Effort: Pulmonary effort is normal. Breath sounds: No wheezing. Comments: Coarse breath sounds bilaterally. Abdominal: General: Abdomen is flat. Bowel sounds are normal. Palpations: Abdomen is soft. Tenderness: There is no abdominal tenderness. Musculoskeletal: General: No swelling or tenderness. Normal range of motion. Cervical back: Normal range of motion and neck supple. Skin: General: Skin is warm and dry. Findings: No erythema. Neurological: General: No focal deficit present. Mental Status: She is alert and oriented to person, place, and time. Psychiatric: Mood and Affect: Mood normal. Behavior: Behavior normal. Labs: Recent Labs 10/23/236 10/24/23 0415 10/25/23 0403 10/26/23 0500 NA 131* 133* 133* 135 K 3.9 3.5 3.3* 3.2* CL 100 107 108* 107 CO2 21* 19* 18* 24 BUN 31* 31* 26* 20* CREATININE 2.17* 1.97* 1.27* 1.00 GLUCOSE 125* 144* 129* 108* CALCIUM 9.0 8.2* 8.3* 8.3* PROT 5.9* 5.2* 5.4* 5.3* BILITOT 0.8 0.6 0.6 0.6 ALKPHOS 59 55 56 49 AST 29 25 30 37 ALT 12 11 13 16 PROCAL 15.67* -- -- -- Recent Labs 10/24/23 0306 10/25/23 0403 10/26/23 0500 WBC 8.5 8.1 6.6 HGB 11.2* 10.9* 10.5* HCT 34.0* 32.7* 32.1* PLT 214 228 208 LYMPHOPCT 22.4 14.4* 15.6 MONOPCT 8.4 5.2 4.5* BASOPCT 0.0 0.1 0.2 NEUTROABS 5.8 6.5 5.2 Micro: No results for input(s): "COVID19" in the last 72 hours. 10/26/2023 [id number] 1401 Blood culture Site #1 - Assess for effectiveness of treatment [[id number]] Blood, Venous Preliminary result Component Value Blood Culture Blood culture incubation started P 10/26/2023 216956 1401 Blood culture Site #2 - Assess for effectiveness of treatment [[id number]] Blood, Venous Preliminary result Component Value Blood Culture Blood culture incubation started P 10/25/2023 68355810/25/2023 2302 Respiratory culture and Stain [[id number]] (Abnormal) Sputum Final result Component Value Respiratory culture Culture canceled due to poor specimen quality. Recollect if clinically indicated. Gram Stain Result Moderate Epithelial cells per low power field Abnormal Few Polymorphonuclear leukocytes per low power field Abnormal Few Gram positive cocci Abnormal Rare Gram positive bacilli Abnormal Smear contains >= 15 squamous cells per low power field, suggestive of poor quality. Culture not performed. Please re-collect if clinically indicated. Abnormal 10/25/2023 [id number]/25/2023 2305 MRSA by PCR [[id number]] ESwab from Nasal Final result Component Value Staphylococcus aureus Not Detected mecA gene Not Detected 10/24/2023 28319410/24/2023 1033 Legionella and Streptococcus Urine Antigen [[id number]] Urine, Clean Catch Final result Component Value Legionella pneumophila Ag Not Detected Streptococcus pneumoniae Ag Not Detected 10/24/2023 70749210/25/2023 0957 Urine culture [[id number]] Urine, Clean Catch Final result Component Value Urine Culture Multiple species present; probable contamination; repeat suggested 10/24/2023 000802 1055 Blood culture Site #1 - Suspected Infection [[id number]] (Abnormal) Blood, Venous Preliminary result Component Value Blood Culture Streptococcus parasanguinis Panic P 10/24/2023 640724 0759 Blood culture Site #2 - Suspected Infection [[id number]] (Abnormal) Blood, Venous Final result Component Value Blood Culture Streptococcus parasanguinis Panic 10/24/2023 299214 2119 Blood Culture Identification - Anaerobic [[id number]] (Abnormal) Blood, Venous Final result Component Value Streptococcus species Detected Abnormal 10/23/2023 362021 0331 Respiratory Pathogens Panel by PCR [[id number]] (Abnormal) Swab from Nasopharynx Final result Component Value SARS-CoV-2 Not Detected Adenovirus Not Detected Coronavirus HKU1 Not Detected Coronavirus NL63 Not Detected Coronavirus 229E Not Detected Coronavirus OC43 Not Detected Human Metapneumovirus Not Detected Human Rhinovirus/Enterovirus Not Detected Influenza A Detected Abnormal Influenza B Not Detected Parainfluenza 1 Not Detected Parainfluenza 2 Not Detected Parainfluenza 3 Not Detected Parainfluenza 4 Not Detected Respiratory Syncytial Virus Not Detected Bordetella pertussis Not Detected Bordetella parapertussis Not Detected Chlamydia pneumoniae Not Detected Mycoplasma pneumoniae Not Detected Lines: RIJ Radiography/Echo/Other: XR chest 1 view [[id number]] Collected: 10/24/23612 Order Status: Completed Updated: 10/24/23614 Narrative: Patient Name: ADORE WALTER : 1935 Exam Date/Time: 10/24/2023 02:51 Procedure: XR CHEST 1 VIEW Ordering Provider: ALONSO MANSUR Reason For Exam: PROCEDURES CHEST - PORTABLE: CLINICAL INDICATION: Central venous catheter placement TECHNIQUE: Portable AP COMPARISON: One day ago FINDINGS: Life support devices: Right jugular venous catheter with its tip in the region of the superior vena cava Heart/Mediastinum: Unchanged Lungs/Pleura: Reticular opacities remain throughout the lungs are there is no pneumothorax. Costophrenic angles are sharp. Impression: Central venous catheter in adequate position without pneumothorax. Report Dictated on Electronically Signed By: Aaron Keller MD Electronically Signed Date/Time: 10/24/2023 6:14 AM EDT CTA chest abdomen pelvis angiogram w and/or wo contrast [[id number]] Collected: 10/23/232242 Order Status: Completed Updated: 10/23/232317 Addenda: [facility] 1935 [id number] Exam Date/Time: 10/23/2023 22:29 Procedure: CT CHEST ABDOMEN PELVIS ANGIOGRAM W AND/OR WO CONTRAST Ordering Provider: AREVALO MICHAEL Reason For Exam: NSTEMI, concern for dissection vs ruptured aortic aneurysm --------ADDENDUM #1 -------- Follow-up thyroid ultrasound is recommended for incidental thyroid nodule that is equal to or greater than 1.5 cm in patients 35 years of age or older. Patients with comorbidities or limited life expectancy should not have further evaluation of the thyroid nodule, unless it is warranted clinically, or specifically requested by the patient or referring physician. Reference: Mile Fraser al "Managing incidental thyroid nodules detected on imaging: White paper of the ACR incidental thyroid findings committee" J Am Juju Radiol 2015;12:143-150. Report Dictated on Electronically Signed By: Aaron Manzo MD Electronically Signed Date/Time: 10/23/2023 11:17 PM EDT --------ORIGINAL REPORT -------- CLINICAL INFORMATION: Progressive chest and abdominal pain. Abdominal pain extending into the pelvis. Evaluate for aortic dissection. CTA CHEST: Images are first obtained prior to IV contrast. After 75 mL Isovue IV contrast, 1 mm axial cuts through the chest are obtained. 3D reconstructions are performed by me and reviewed simultaneously on the separate [employer] workstation. Sagittal and coronal reconstructions are also reviewed. Dose reduction was employed with automated exposure control. FINDINGS: A good contrast bolus is identified within the thoracic aorta. The ascending, arch, and descending thoracic aorta are normal in caliber without evidence of aneurysm or dissection. There are no filling defects to suggest pulmonary embolism. The pulmonary arteries are enlarged consistent with chronic pulmonary hypertension. The heart size is normal. There is no significant mediastinal lymphadenopathy. Mild emphysematous changes are noted diffusely. Atelectasis and mild infiltrates are noted in both lower lobes. No pleural effusions are seen. A 3.5 cm hypodense nodule is noted in the right lobe of thyroid. IMPRESSION: 1. No evidence of aortic aneurysm or dissection. 2. COPD with evidence of chronic pulmonary hypertension. 3. Mild bibasilar infiltrates. CTA ABDOMEN: 1 mm axial cuts are obtained from the dome of the liver through the iliac crests with 75 mL Isovue IV contrast. 3D images with coronal and sagittal planar images were reconstructed by me and reviewed simultaneously on the [employer] Workstation. Dose reduction was employed with automated exposure control. FINDINGS: The abdominal aorta is normal in caliber without evidence of aneurysmal dilatation or dissection. The celiac trunk and SMA origins are normal. Single renal arteries are identified bilaterally. There is no evidence of renal artery stenosis. The inferior mesenteric artery remains patent. The liver and spleen are normal. The pancreas and adrenal glands are within normal limits. Both kidneys are visualized in their cortical phase. There is no hydronephrosis or hydroureter. No free fluid is seen within the abdomen. IMPRESSION: 1. There is no evidence of aortic aneurysm or dissection. 2. The mesenteric and renal vessel origins are normal. CTA PELVIS: 1 mm axial cuts are obtained from the iliac crests through the symphysis pubis with 75 mL Isovue IV contrast. 3D images with coronal and sagittal planar images were reconstructed by wi and reviewed simultaneously on the [employer] Workstation. Dose reduction was employed with automated exposure control. FINDINGS: Mild atherosclerotic changes are present in the common iliac arteries bilaterally. However, this does not appear flow-limiting. The common femoral arteries are normal bilaterally. There is no evidence of bowel obstruction. The bladder is normal. No free fluid is seen within the pelvis. Sagittal reconstructed images of the spine demonstrate numerous chronic-appearing compression fractures (T11, L2, L4, and L5). Hip surgeries are noted bilaterally. IMPRESSION: 1. No evidence of aortic aneurysm or dissection. 2. COPD with evidence of chronic pulmonary hypertension. 3. Mild bibasilar infiltrates. 4. Numerous old thoracolumbar compression fractures. Report Dictated on Electronically Signed By: Aaron Manzo MD Electronically Signed Date/Time: 10/23/2023 10:51 PM EDT Signed: 10/23/232316 by Aaron Manzo MD Narrative: Patient Name: ADORE WALTER : 1935 Exam Date/Time: 10/23/2023 22:29 Procedure: CT CHEST ABDOMEN PELVIS ANGIOGRAM W AND/OR WO CONTRAST Ordering Provider: AREVALO MICHAEL Reason For Exam: NSTEMI, concern for dissection vs ruptured aortic aneurysm CLINICAL INFORMATION: Progressive chest and abdominal pain. Abdominal pain extending into the pelvis. Evaluate for aortic dissection. CTA CHEST: Images are first obtained prior to IV contrast. After 75 mL Isovue IV contrast, 1 mm axial cuts through the chest are obtained. 3D reconstructions are performed by wi and reviewed simultaneously on the separate [employer] workstation. Sagittal and coronal reconstructions are also reviewed. Dose reduction was employed with automated exposure control. FINDINGS: A good contrast bolus is identified within the thoracic aorta. The ascending, arch, and descending thoracic aorta are normal in caliber without evidence of aneurysm or dissection. There are no filling defects to suggest pulmonary embolism. The pulmonary arteries are enlarged consistent with chronic pulmonary hypertension. The heart size is normal. There is no significant mediastinal lymphadenopathy. Mild emphysematous changes are noted diffusely. Atelectasis and mild infiltrates are noted in both lower lobes. No pleural effusions are seen. A 3.5 cm hypodense nodule is noted in the right lobe of thyroid. Impression: 1. No evidence of aortic aneurysm or dissection. 2. COPD with evidence of chronic pulmonary hypertension. 3. Mild bibasilar infiltrates. CTA ABDOMEN: 1 mm axial cuts are obtained from the dome of the liver through the iliac crests with 75 mL Isovue IV contrast. 3D images with coronal and sagittal planar images were reconstructed by me and reviewed simultaneously on the [employer] Workstation. Dose reduction was employed with automated exposure control. FINDINGS: The abdominal aorta is normal in caliber without evidence of aneurysmal dilatation or dissection. The celiac trunk and SMA origins are normal. Single renal arteries are identified bilaterally. There is no evidence of renal artery stenosis. The inferior mesenteric artery remains patent. The liver and spleen are normal. The pancreas and adrenal glands are within normal limits. Both kidneys are visualized in their cortical phase. There is no hydronephrosis or hydroureter. No free fluid is seen within the abdomen. IMPRESSION: 1. There is no evidence of aortic aneurysm or dissection. 2. The mesenteric and renal vessel origins are normal. CTA PELVIS: 1 mm axial cuts are obtained from the iliac crests through the symphysis pubis with 75 mL Isovue IV contrast. 3D images with coronal and sagittal planar images were reconstructed by me and reviewed simultaneously on the [employer] Workstation. Dose reduction was employed with automated exposure control. FINDINGS: Mild atherosclerotic changes are present in the common iliac arteries bilaterally. However, this does not appear flow-limiting. The common femoral arteries are normal bilaterally. There is no evidence of bowel obstruction. The bladder is normal. No free fluid is seen within the pelvis. Sagittal reconstructed images of the spine demonstrate numerous chronic-appearing compression fractures (T11, L2, L4, and L5). Hip surgeries are noted bilaterally. IMPRESSION: 1. No evidence of aortic aneurysm or dissection. 2. COPD with evidence of chronic pulmonary hypertension. 3. Mild bibasilar infiltrates. 4. Numerous old thoracolumbar compression fractures. Report Dictated on Electronically Signed By: Aaron Manzo MD Electronically Signed Date/Time: 10/23/2023 10:[address] head wo IV contrast [[id number]] Collected: 10/23/232240 Order Status: Completed Updated: 10/23/232243 Narrative: Patient Name: ADORE WALTER : 1935 Exam Date/Time: 10/23/2023 22:27 Procedure: CT HEAD WO IV CONTRAST Ordering Provider: CLAROS COURTNEY Reason For Exam: Mental status change, unknown cause CT BRAIN WITHOUT CONTRAST CLINICAL INDICATION: Mental status change, unknown cause TECHNIQUE: CT scan of the brain without IV contrast. Multiplanar reformations. Dose reduction was employed with automated exposure control. COMPARISON: September,. FINDINGS: No apparent mass or mass effect, hemorrhage, midline shift or hydrocephalus. No evidence of acute cortical infarct. No abnormal, extra-axial fluid or air collection. Patchy low density in the periventricular and subcortical white matter is nonspecific, but may relate to chronic small vessel ischemic change. Mild-moderate, diffuse volume loss. Osseous calvarium grossly intact. Marginal mucosal thickening in the left maxillary sinus and more pronounced mucosal thickening in the sphenoid sinus. Partial opacification of bilateral mastoid sinus. Impression: 1. No acute intracranial findings. 2. Probable chronic ischemic and atrophic changes. 3. Sphenoid and bilateral mastoid sinus disease. Report Dictated on Electronically Signed By: Tutu Arroyo MD Electronically Signed Date/Time: 10/23/2023 10:43 PM EDT XR chest 1 view [[id number]] Collected: 10/23/232146 Order Status: Completed Updated: 10/23/232148 Narrative: [facility] 1935 [id number] Exam Date/Time: 10/23/2023 21:47 Procedure: XR CHEST 1 VIEW Ordering Provider: CLAROS COURTNEY Reason For Exam: ALTERED MENTAL STATUS CHEST PORTABLE CLINICAL INDICATION: ALTERED MENTAL STATUS TECHNIQUE: Portable chest x-ray(s). COMPARISON: September,. FINDINGS: Patient rotated to the right. Cardiac silhouette prominent, which may be due in part to technique, but stable. Lungs show interstitial prominence or coarsening bilaterally, about the same. No focal consolidation or apparent pneumothorax. Degenerative change again noted in the thoracic spine and bilateral shoulders. Impression: 1. Stable examination. No acute findings. Report Dictated on Electronically Signed By: Tutu Arroyo MD Electronically Signed Date/Time: 10/23/2023 9:47 PM EDT 10/24/23 TTE: Interpretation Summary Left Ventricle: Left ventricle size is normal. Mildly increased wall thickness. Moderate septal thickening. Normal left ventricular systolic function. EF by 2D Simpsons Biplane is 76%. Normal wall motion. Normal diastolic function. Right Ventricle: Right ventricle size is normal. RV basal diameter is 3.6 cm. RV mid diameter is 3.3 cm. Normal systolic function. TAPSE is normal. TAPSE is 2.5 cm. Aortic Valve: Mildly thickened cusps. Mildly calcified cusps. Left, right and noncoronary cusps sclerosis. Mild (1+) regurgitation. Aortic sclerosis/mild stenosis. Mitral Valve: Mildly thickened leaflets. Mild annular calcification (posterior). Trace regurgitation. Pulmonic Valve: Valve structure is normal. Mildly thickened cusps. Left Atrium: Left atrium size is mildly increased (LA volume index 35-41 mL/m2).LA Vol Index A/L is 36 mL/m2. Right Atrium: Not well visualized. Right atrium size is normal. Aorta: Normal sized sinuses of Valsalva. Sinuses of Valsalva diameter is 3.6 cm. Moderately dilated ascending aorta. Ao ascending diameter is 4.0 cm. Pericardium: Evidence of prominent epicardial fat. No pericardial effusion. Comparison Study Information Prior Study There is a prior study available for comparison. Prior study date: 12/12/2020. EF 48%. Echo Findings Left Ventricle Left ventricle size is normal. Mildly increased wall thickness. Moderate septal thickening. Normal left ventricular systolic function. EF by 2D Simpsons Biplane is 76%. Normal wall motion. Normal diastolic function. Right Ventricle Right ventricle size is normal. RV basal diameter is 3.6 cm. RV mid diameter is 3.3 cm. Normal systolic function. TAPSE is normal. TAPSE is 2.5 cm. Left Atrium Left atrium size is mildly increased (LA volume index 35-41 mL/m2).LA Vol Index A/L is 36 mL/m2. Interatrial Septum Interatrial septum was not well visualized. No interatrial shunt visualized on color Doppler. Right Atrium Not well visualized. Right atrium size is normal. Aortic Valve Mildly thickened cusps. Mildly calcified cusps. Left, right and noncoronary cusps sclerosis. Mild (1+) regurgitation. Aortic sclerosis/mild stenosis. Mitral Valve Mildly thickened leaflets. Mild annular calcification (posterior). Trace regurgitation. No stenosis noted. Tricuspid Valve Not well visualized. Valve structure is normal. Trace regurgitation. Pulmonic Valve Valve structure is normal. Mildly thickened cusps. Mild (1+) regurgitation. Aorta Normal sized sinuses of Valsalva. Sinuses of Valsalva diameter is 3.6 cm. Moderately dilated ascending aorta. Ao ascending diameter is 4.0 cm. IVC/Hepatic Veins IVC is mildly dilated. IVC diameter is dilated and decreases greater than 50% during inspiration; therefore the estimated right atrial pressure is intermediate (~8 mmHg). Pericardium Evidence of prominent epicardial fat. No pericardial effusion. Study Details Image quality: poor. Heart rate: 63 bpm. Blood pressure: 93/47 mmHg. Technical qualifiers: Technically difficult study with poor endocardial visualization. Ultrasound enhancement agent was given to enhance imaging. Antimicrobials,Start/End Dates: Pip/tazo Ceftr 10/25- Oseltamivir 10/23- Vanco Impression: Septic shock. Streptococcus parasanguinis bacteremia. Pneumonia due to Influenza A. COPD with evidence of chronic pulmonary hypertension. NSTEMI Plan: Pt sick due to septic shock due to streptococcus parasanguinis bacteremia and Influenza A pneumonia. Afebrile, hemodynamically ok. Off pressor. Blood cxs were repted today, will follow. 2D ECHO did not describe any vegetation. Continue ceftriaxone for 2 weeks and oseltamivir for 5 days. Rept sputum cx. High level complexity medical decision making. Will follow. Thank you. Total time 75 minutes on this day of encounter includes counseling, coordinating plan of care, record and documentation review before and after visit including documentation and time not explicitly included on EMR time stamp for accounting for open encounter. [facility] 10-26-2023 Consult note Associated Order (s): IP CONSULT TO INFECTIOUS DISEASES Images from the original note were not included. [facility] - Infectious Diseases Attending Consult Note Reason for Consult: Septic shock, Streptococcus parasanguinis bacteremia, pneumonia due to influenza A. History of Present Illness: 88 y/o female was admitted to ICU on 10/24/23 from [facility] with complaints of change in mentation and hypotension. In ED, on presentation, her BP was 62/47, had syncopal episode once moved to ED cot, had episodes of consciousness and immediatly falling back to sleep, labs showed elevated SCr 2.17, hypoalbuminemia (2.9), pyuria (>100 wbc); she remained hypotensive despite LR bolus, she was started on Levophed, heparin gtt was started for NSTEMI. She was seen, found her alert, sitting on bed, c/o lots of phlegm, weakness; denied tooth or gum pain, has dentures; blood cxs grew strep parasanguinis, she appeared debilitated and ill. She was examined; notes, labs and imaging were reviewed and treatment plan was discussed. Past Medical History: Past Medical History: Diagnosis Date CHF (congestive heart failure) (HCC) COPD (chronic obstructive pulmonary disease) (HCC) Past Surgical History: Past Surgical History: Procedure Laterality Date HIP SURGERY Right HYSTERECTOMY KNEE SURGERY Bilateral LEG MUSCLE SURGERY (HISTORICAL) Left Current Medications: Current Facility-Administered Medications Medication Dose Route Frequency Provider Last Rate Last Admin acetaminophen (Tylenol) tablet 1,000 mg 1,000 mg Oral q8h PRN ADARSH Medina CNP aspirin suppository 300 mg 300 mg Rectal Once ADARSH Medina CNP cefTRIAXone (Rocephin) 2,000 mg in sodium chloride 0.9 % 50 mL IVPB Mini-Bag Plus 2,000 mg IntraVENous q24h Tova Goss DO Stopped at 10/26/23 1006 enoxaparin (Lovenox) syringe 30 mg 30 mg SubCUTAneous Daily Tova Goss DO 30 mg at 10/26/23 0927 lactated ringers bolus 1,770 mL 30 mL/kg IntraVENous Once ADARSH Medina CNP ondansetron ODT (Zofran-ODT) disintegrating tablet 4 mg 4 mg Oral q8h PRN ADARSH Medina CNP Or ondansetron (Zofran) injection 4 mg 4 mg IntraVENous q6h PRN ADARSH Medina CNP oseltamivir (Tamiflu) capsule 30 mg 30 mg Oral BID ADARSH Medina CNP 30 mg at 10/26/23 0927 pantoprazole (ProtoNix) EC tablet 40 mg 40 mg Oral qAM AC Tova Goss DO 40 mg at 10/26/23 0640 senna-docusate sodium (Senokot-S) 8.6-50 MG tablet 1 tablet 1 tablet Oral Daily PRN Aaron Man Mejia, 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 CHAIRMAN sodium chloride 0.9 % infusion 5-250 mL/hr IntraVENous PRN Aaron A Mejia, 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 CHAIRMAN sodium chloride 0.9% (NS) flush 10 mL 10 mL IntraVENous 2 times per day Aaron Man Mejia, 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 CHAIRMAN 10 mL at 10/25/23 2100 sodium chloride 0.9% (NS) flush 10 mL 10 mL IntraVENous PRN Aaron Magda Mejia, 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 CHAIRMAN sodium chloride 0.9% (NS) flush 5-40 mL 5-40 mL IntraCATHeter q8h Aaron Magda Mejia, 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 CHAIRMAN 10 mL at 10/26/23 0206 sodium chloride 0.9% (NS) flush 5-40 mL 5-40 mL IntraVENous PRN Aaron Magda Mejia, 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 CHAIRMAN Allergies: No Known Allergies Social History: Social History Socioeconomic History Marital status: Spouse name: Not on file Number of children: Not on file Years of education: Not on file Highest education level: Not on file Occupational History Not on file Tobacco Use Smoking status: Former Packs/day: 0.50 Years: 35.00 Additional pack years: 0.00 Total pack years: 17.50 Types: Cigarettes Start date: 1956 Quit date: 1991 Years since quittin.2 Smokeless tobacco: Never Substance and Sexual Activity Alcohol use: Yes Comment: obdulia bullard Drug use: Never Sexual activity: Not on file Other Topics Concern Not on file Social History Narrative Not on file Social Determinants of Health Financial Resource Strain: Low Risk (05/26/2022) Overall Financial Resource Strain (CARDIA) Difficulty of Paying Living Expenses: Not hard at all Food Insecurity: No Food Insecurity (05/26/2022) Hunger Vital Sign Worried About Running Out of Food in the Last Year: Never true Ran Out of Food in the Last Year: Never true Transportation Needs: Not on file Physical Activity: Not on file Stress: Not on file Social Connections: Not on file Intimate Partner Violence: Not At Risk (10/24/2023) Humiliation, Afraid, Rape, and Kick questionnaire Fear of Current or Ex-Partner: No Emotionally Abused: No Physically Abused: No Sexually Abused: No Housing Stability: Not on file Family History: No family history on file. Review of Systems: Review of Systems Constitutional: Positive for activity change and fatigue. HENT: Negative for ear pain and sinus pain. Eyes: Negative for pain. Respiratory: Positive for cough and shortness of breath. Cardiovascular: Negative for chest pain. Gastrointestinal: Negative for abdominal pain and diarrhea. Endocrine: Negative for polyphagia. Genitourinary: Negative for dysuria. Musculoskeletal: Negative for arthralgias. Skin: Negative for color change. Neurological: Positive for dizziness, syncope and weakness. Psychiatric/Behavioral: Negative for agitation. Vitals: Patient Vitals for the past 24 hrs: Temp Temp src Pulse Resp SpO2 10/26/23 0800 -- -- 50 18 93 % 10/26/23 0752 36.4 C (97.5 F) Oral -- -- -- 10/26/23 0700 -- -- 53 23 96 % 10/26/23 0530 -- -- 58 19 94 % 10/26/23 0500 -- -- 61 19 94 % 10/26/23 0430 -- -- 52 17 96 % 10/26/23 0421 -- -- 51 17 94 % 10/26/23 0419 -- -- 53 18 94 % 10/26/23 0328 36.9 C (98.4 F) Oral -- -- -- 10/26/23 0310 -- -- (!) 47 17 95 % 10/26/23 0300 -- -- 59 17 96 % 10/26/23 0250 -- -- 50 16 96 % 10/26/23 0240 -- -- 54 19 95 % 10/26/23 0230 -- -- 67 15 96 % 10/26/23 0220 -- -- 67 25 94 % 10/26/23 0210 -- -- 61 17 96 % 10/26/23 0200 -- -- 61 19 94 % 10/26/23 0130 -- -- 57 18 94 % 10/26/23 0100 -- -- 58 19 93 % 10/26/23 0030 36.9 C (98.4 F) Oral 53 18 94 % 10/26/23 0000 -- -- 55 20 97 % 10/25/23 2330 -- -- 64 20 93 % 10/25/23 2230 -- -- (!) 49 12 95 % 10/25/23 2200 -- -- 66 18 95 % 10/25/23 2130 -- -- 68 17 94 % 10/25/23 2100 -- -- 68 21 96 % 10/25/231999 -- -- 72 -- 99 % 10/25/23 1945 36.5 C (97.7 F) Oral 57 -- 93 % 10/25/23 1900 -- -- 65 -- 92 % 10/25/23 1815 -- -- 61 -- 98 % 10/25/23 1800 -- -- 68 -- 100 % 10/25/23 1730 -- -- 60 -- 95 % 10/25/23 1700 -- -- 64 -- 94 % 10/25/23 1630 -- -- 68 -- 94 % 10/25/23 1624 -- -- 70 -- 92 % 10/25/23 1600 36.1 C (97 F) Oral 66 -- 95 % 10/25/23 1530 -- -- 58 -- 95 % 10/25/23 1500 -- -- 62 -- 98 % 10/25/23 1415 -- -- 55 18 95 % 10/25/23 1400 -- -- 70 19 94 % Physical Exam: Physical Exam Vitals and nursing note reviewed. Constitutional: Appearance: She is ill-appearing. HENT: Head: Normocephalic and atraumatic. Nose: Nose normal. Mouth/Throat: Mouth: Mucous membranes are moist. Pharynx: Oropharynx is clear. Eyes: Extraocular Movements: Extraocular movements intact. Pupils: Pupils are equal, round, and reactive to light. Cardiovascular: Rate and Rhythm: Normal rate and regular rhythm. Pulmonary: Effort: Pulmonary effort is normal. Breath sounds: No wheezing. Comments: Coarse breath sounds bilaterally. Abdominal: General: Abdomen is flat. Bowel sounds are normal. Palpations: Abdomen is soft. Tenderness: There is no abdominal tenderness. Musculoskeletal: General: No swelling or tenderness. Normal range of motion. Cervical back: Normal range of motion and neck supple. Skin: General: Skin is warm and dry. Findings: No erythema. Neurological: General: No focal deficit present. Mental Status: She is alert and oriented to person, place, and time. Psychiatric: Mood and Affect: Mood normal. Behavior: Behavior normal. Labs: Recent Labs 10/23/23 2126 10/24/23 0415 10/25/23 0403 10/26/23 0500 NA 131* 133* 133* 135 K 3.9 3.5 3.3* 3.2* CL 100 107 108* 107 CO2 21* 19* 18* 24 BUN 31* 31* 26* 20* CREATININE 2.17* 1.97* 1.27* 1.00 GLUCOSE 125* 144* 129* 108* CALCIUM 9.0 8.2* 8.3* 8.3* PROT 5.9* 5.2* 5.4* 5.3* BILITOT 0.8 0.6 0.6 0.6 ALKPHOS 59 55 56 49 AST 29 25 30 37 ALT 12 11 13 16 PROCAL 15.67* -- -- -- Recent Labs 10/24/23 0306 10/25/23 0403 10/26/23 0500 WBC 8.5 8.1 6.6 HGB 11.2* 10.9* 10.5* HCT 34.0* 32.7* 32.1* PLT 214 228 208 LYMPHOPCT 22.4 14.4* 15.6 MONOPCT 8.4 5.2 4.5* BASOPCT 0.0 0.1 0.2 NEUTROABS 5.8 6.5 5.2 Micro: No results for input(s): "COVID19" in the last 72 hours. 10/26/2023 [id number] 1401 Blood culture Site #1 - Assess for effectiveness of treatment [[id number]] Blood, Venous Preliminary result Component Value Blood Culture Blood culture incubation started P 10/26/2023 17753710/26/2023 1401 Blood culture Site #2 - Assess for effectiveness of treatment [[id number]] Blood, Venous Preliminary result Component Value Blood Culture Blood culture incubation started P 10/25/2023 2302 Respiratory culture and Stain [[id number]] (Abnormal) Sputum Final result Component Value Respiratory culture Culture canceled due to poor specimen quality. Recollect if clinically indicated. Gram Stain Result Moderate Epithelial cells per low power field Abnormal Few Polymorphonuclear leukocytes per low power field Abnormal Few Gram positive cocci Abnormal Rare Gram positive bacilli Abnormal Smear contains >= 15 squamous cells per low power field, suggestive of poor quality. Culture not performed. Please re-collect if clinically indicated. Abnormal 10/25/2023 36784610/25/2023 2305 MRSA by PCR [[id number]] ESwab from Nasal Final result Component Value Staphylococcus aureus Not Detected mecA gene Not Detected 10/24/2023 30107910/24/2023 1033 Legionella and Streptococcus Urine Antigen [[id number]] Urine, Clean Catch Final result Component Value Legionella pneumophila Ag Not Detected Streptococcus pneumoniae Ag Not Detected 10/24/2023 96058110/25/2023 0957 Urine culture [[id number]] Urine, Clean Catch Final result Component Value Urine Culture Multiple species present; probable contamination; repeat suggested 10/24/2023 [id number] 1055 Blood culture Site #1 - Suspected Infection [[id number]] (Abnormal) Blood, Venous Preliminary result Component Value Blood Culture Streptococcus parasanguinis Panic P 10/24/2023 135822 0759 Blood culture Site #2 - Suspected Infection [[id number]] (Abnormal) Blood, Venous Final result Component Value Blood Culture Streptococcus parasanguinis Panic 10/24/2023 694908 2119 Blood Culture Identification - Anaerobic [[id number]] (Abnormal) Blood, Venous Final result Component Value Streptococcus species Detected Abnormal 10/23/2023 578824 0331 Respiratory Pathogens Panel by PCR [[id number]] (Abnormal) Swab from Nasopharynx Final result Component Value SARS-CoV-2 Not Detected Adenovirus Not Detected Coronavirus HKU1 Not Detected Coronavirus NL63 Not Detected Coronavirus 229E Not Detected Coronavirus OC43 Not Detected Human Metapneumovirus Not Detected Human Rhinovirus/Enterovirus Not Detected Influenza A Detected Abnormal Influenza B Not Detected Parainfluenza 1 Not Detected Parainfluenza 2 Not Detected Parainfluenza 3 Not Detected Parainfluenza 4 Not Detected Respiratory Syncytial Virus Not Detected Bordetella pertussis Not Detected Bordetella parapertussis Not Detected Chlamydia pneumoniae Not Detected Mycoplasma pneumoniae Not Detected Lines: RIJ Radiography/Echo/Other: XR chest 1 view [[id number]] Collected: 10/24/23612 Order Status: Completed Updated: 10/24/23614 Narrative: Patient Name: ADORE WALTER : 1935 Exam Date/Time: 10/24/2023 02:51 Procedure: XR CHEST 1 VIEW Ordering Provider: ALONSO MANSUR Reason For Exam: PROCEDURES CHEST - PORTABLE: CLINICAL INDICATION: Central venous catheter placement TECHNIQUE: Portable AP COMPARISON: One day ago FINDINGS: Life support devices: Right jugular venous catheter with its tip in the region of the superior vena cava Heart/Mediastinum: Unchanged Lungs/Pleura: Reticular opacities remain throughout the lungs are there is no pneumothorax. Costophrenic angles are sharp. Impression: Central venous catheter in adequate position without pneumothorax. Report Dictated on Electronically Signed By: Aaron Keller MD Electronically Signed Date/Time: 10/24/2023 6:14 AM EDT CTA chest abdomen pelvis angiogram w and/or wo contrast [[id number]] Collected: 10/23/232242 Order Status: Completed Updated: 10/23/232317 Addenda: Patient Name: ADORE WALTER : 1935 Exam Date/Time: 10/23/2023 22:29 Procedure: CT CHEST ABDOMEN PELVIS ANGIOGRAM W AND/OR WO CONTRAST Ordering Provider: AREVALO MICHAEL Reason For Exam: NSTEMI, concern for dissection vs ruptured aortic aneurysm --------ADDENDUM #1 -------- Follow-up thyroid ultrasound is recommended for incidental thyroid nodule that is equal to or greater than 1.5 cm in patients 35 years of age or older. Patients with comorbidities or limited life expectancy should not have further evaluation of the thyroid nodule, unless it is warranted clinically, or specifically requested by the patient or referring physician. Reference: Mile Fraser al "Managing incidental thyroid nodules detected on imaging: White paper of the ACR incidental thyroid findings committee" J Am Juju Radiol 2015;12:143-150. Report Dictated on Electronically Signed By: Aaron Manzo MD Electronically Signed Date/Time: 10/23/2023 11:17 PM EDT --------ORIGINAL REPORT -------- CLINICAL INFORMATION: Progressive chest and abdominal pain. Abdominal pain extending into the pelvis. Evaluate for aortic dissection. CTA CHEST: Images are first obtained prior to IV contrast. After 75 mL Isovue IV contrast, 1 mm axial cuts through the chest are obtained. 3D reconstructions are performed by me and reviewed simultaneously on the separate [employer] workstation. Sagittal and coronal reconstructions are also reviewed. Dose reduction was employed with automated exposure control. FINDINGS: A good contrast bolus is identified within the thoracic aorta. The ascending, arch, and descending thoracic aorta are normal in caliber without evidence of aneurysm or dissection. There are no filling defects to suggest pulmonary embolism. The pulmonary arteries are enlarged consistent with chronic pulmonary hypertension. The heart size is normal. There is no significant mediastinal lymphadenopathy. Mild emphysematous changes are noted diffusely. Atelectasis and mild infiltrates are noted in both lower lobes. No pleural effusions are seen. A 3.5 cm hypodense nodule is noted in the right lobe of thyroid. IMPRESSION: 1. No evidence of aortic aneurysm or dissection. 2. COPD with evidence of chronic pulmonary hypertension. 3. Mild bibasilar infiltrates. CTA ABDOMEN: 1 mm axial cuts are obtained from the dome of the liver through the iliac crests with 75 mL Isovue IV contrast. 3D images with coronal and sagittal planar images were reconstructed by me and reviewed simultaneously on the [employer] Workstation. Dose reduction was employed with automated exposure control. FINDINGS: The abdominal aorta is normal in caliber without evidence of aneurysmal dilatation or dissection. The celiac trunk and SMA origins are normal. Single renal arteries are identified bilaterally. There is no evidence of renal artery stenosis. The inferior mesenteric artery remains patent. The liver and spleen are normal. The pancreas and adrenal glands are within normal limits. Both kidneys are visualized in their cortical phase. There is no hydronephrosis or hydroureter. No free fluid is seen within the abdomen. IMPRESSION: 1. There is no evidence of aortic aneurysm or dissection. 2. The mesenteric and renal vessel origins are normal. CTA PELVIS: 1 mm axial cuts are obtained from the iliac crests through the symphysis pubis with 75 mL Isovue IV contrast. 3D images with coronal and sagittal planar images were reconstructed by wi and reviewed simultaneously on the [employer] Workstation. Dose reduction was employed with automated exposure control. FINDINGS: Mild atherosclerotic changes are present in the common iliac arteries bilaterally. However, this does not appear flow-limiting. The common femoral arteries are normal bilaterally. There is no evidence of bowel obstruction. The bladder is normal. No free fluid is seen within the pelvis. Sagittal reconstructed images of the spine demonstrate numerous chronic-appearing compression fractures (T11, L2, L4, and L5). Hip surgeries are noted bilaterally. IMPRESSION: 1. No evidence of aortic aneurysm or dissection. 2. COPD with evidence of chronic pulmonary hypertension. 3. Mild bibasilar infiltrates. 4. Numerous old thoracolumbar compression fractures. Report Dictated on Electronically Signed By: Aaron Manzo MD Electronically Signed Date/Time: 10/23/2023 10:51 PM EDT Signed: 10/23/232316 by Aaron Manzo MD Narrative: Patient Name: ADORE WALTER : 1935 Exam Date/Time: 10/23/2023 22:29 Procedure: CT CHEST ABDOMEN PELVIS ANGIOGRAM W AND/OR WO CONTRAST Ordering Provider: AREVALO MICHAEL Reason For Exam: NSTEMI, concern for dissection vs ruptured aortic aneurysm CLINICAL INFORMATION: Progressive chest and abdominal pain. Abdominal pain extending into the pelvis. Evaluate for aortic dissection. CTA CHEST: Images are first obtained prior to IV contrast. After 75 mL Isovue IV contrast, 1 mm axial cuts through the chest are obtained. 3D reconstructions are performed by wi and reviewed simultaneously on the separate [employer] workstation. Sagittal and coronal reconstructions are also reviewed. Dose reduction was employed with automated exposure control. FINDINGS: A good contrast bolus is identified within the thoracic aorta. The ascending, arch, and descending thoracic aorta are normal in caliber without evidence of aneurysm or dissection. There are no filling defects to suggest pulmonary embolism. The pulmonary arteries are enlarged consistent with chronic pulmonary hypertension. The heart size is normal. There is no significant mediastinal lymphadenopathy. Mild emphysematous changes are noted diffusely. Atelectasis and mild infiltrates are noted in both lower lobes. No pleural effusions are seen. A 3.5 cm hypodense nodule is noted in the right lobe of thyroid. Impression: 1. No evidence of aortic aneurysm or dissection. 2. COPD with evidence of chronic pulmonary hypertension. 3. Mild bibasilar infiltrates. CTA ABDOMEN: 1 mm axial cuts are obtained from the dome of the liver through the iliac crests with 75 mL Isovue IV contrast. 3D images with coronal and sagittal planar images were reconstructed by wi and reviewed simultaneously on the [employer] Workstation. Dose reduction was employed with automated exposure control. FINDINGS: The abdominal aorta is normal in caliber without evidence of aneurysmal dilatation or dissection. The celiac trunk and SMA origins are normal. Single renal arteries are identified bilaterally. There is no evidence of renal artery stenosis. The inferior mesenteric artery remains patent. The liver and spleen are normal. The pancreas and adrenal glands are within normal limits. Both kidneys are visualized in their cortical phase. There is no hydronephrosis or hydroureter. No free fluid is seen within the abdomen. IMPRESSION: 1. There is no evidence of aortic aneurysm or dissection. 2. The mesenteric and renal vessel origins are normal. CTA PELVIS: 1 mm axial cuts are obtained from the iliac crests through the symphysis pubis with 75 mL Isovue IV contrast. 3D images with coronal and sagittal planar images were reconstructed by me and reviewed simultaneously on the [employer] Workstation. Dose reduction was employed with automated exposure control. FINDINGS: Mild atherosclerotic changes are present in the common iliac arteries bilaterally. However, this does not appear flow-limiting. The common femoral arteries are normal bilaterally. There is no evidence of bowel obstruction. The bladder is normal. No free fluid is seen within the pelvis. Sagittal reconstructed images of the spine demonstrate numerous chronic-appearing compression fractures (T11, L2, L4, and L5). Hip surgeries are noted bilaterally. IMPRESSION: 1. No evidence of aortic aneurysm or dissection. 2. COPD with evidence of chronic pulmonary hypertension. 3. Mild bibasilar infiltrates. 4. Numerous old thoracolumbar compression fractures. Report Dictated on Electronically Signed By: Aaron Manzo MD Electronically Signed Date/Time: 10/23/2023 10:[address] head wo IV contrast [[id number]] Collected: 10/23/232240 Order Status: Completed Updated: 10/23/232243 Narrative: Patient Name: ADORE WALTER : 1935 Exam Date/Time: 10/23/2023 22:27 Procedure: CT HEAD WO IV CONTRAST Ordering Provider: CLAROS COURTNEY Reason For Exam: Mental status change, unknown cause CT BRAIN WITHOUT CONTRAST CLINICAL INDICATION: Mental status change, unknown cause TECHNIQUE: CT scan of the brain without IV contrast. Multiplanar reformations. Dose reduction was employed with automated exposure control. COMPARISON: September,. FINDINGS: No apparent mass or mass effect, hemorrhage, midline shift or hydrocephalus. No evidence of acute cortical infarct. No abnormal, extra-axial fluid or air collection. Patchy low density in the periventricular and subcortical white matter is nonspecific, but may relate to chronic small vessel ischemic change. Mild-moderate, diffuse volume loss. Osseous calvarium grossly intact. Marginal mucosal thickening in the left maxillary sinus and more pronounced mucosal thickening in the sphenoid sinus. Partial opacification of bilateral mastoid sinus. Impression: 1. No acute intracranial findings. 2. Probable chronic ischemic and atrophic changes. 3. Sphenoid and bilateral mastoid sinus disease. Report Dictated on Electronically Signed By: Tutu Arroyo MD Electronically Signed Date/Time: 10/23/2023 10:43 PM EDT XR chest 1 view [[id number]] Collected: 10/23/232146 Order Status: Completed Updated: 10/23/232148 Narrative: Patient Name: ADORE WALTER : 1935 Exam Date/Time: 10/23/2023 21:47 Procedure: XR CHEST 1 VIEW Ordering Provider: CLAROS COURTNEY Reason For Exam: ALTERED MENTAL STATUS CHEST PORTABLE CLINICAL INDICATION: ALTERED MENTAL STATUS TECHNIQUE: Portable chest x-ray(s). COMPARISON: September,. FINDINGS: Patient rotated to the right. Cardiac silhouette prominent, which may be due in part to technique, but stable. Lungs show interstitial prominence or coarsening bilaterally, about the same. No focal consolidation or apparent pneumothorax. Degenerative change again noted in the thoracic spine and bilateral shoulders. Impression: 1. Stable examination. No acute findings. Report Dictated on Electronically Signed By: Tutu Arroyo MD Electronically Signed Date/Time: 10/23/2023 9:47 PM EDT 10/24/23 TTE: Interpretation Summary Left Ventricle: Left ventricle size is normal. Mildly increased wall thickness. Moderate septal thickening. Normal left ventricular systolic function. EF by 2D Simpsons Biplane is 76%. Normal wall motion. Normal diastolic function. Right Ventricle: Right ventricle size is normal. RV basal diameter is 3.6 cm. RV mid diameter is 3.3 cm. Normal systolic function. TAPSE is normal. TAPSE is 2.5 cm. Aortic Valve: Mildly thickened cusps. Mildly calcified cusps. Left, right and noncoronary cusps sclerosis. Mild (1+) regurgitation. Aortic sclerosis/mild stenosis. Mitral Valve: Mildly thickened leaflets. Mild annular calcification (posterior). Trace regurgitation. Pulmonic Valve: Valve structure is normal. Mildly thickened cusps. Left Atrium: Left atrium size is mildly increased (LA volume index 35-41 mL/m2).LA Vol Index A/L is 36 mL/m2. Right Atrium: Not well visualized. Right atrium size is normal. Aorta: Normal sized sinuses of Valsalva. Sinuses of Valsalva diameter is 3.6 cm. Moderately dilated ascending aorta. Ao ascending diameter is 4.0 cm. Pericardium: Evidence of prominent epicardial fat. No pericardial effusion. Comparison Study Information Prior Study There is a prior study available for comparison. Prior study date: 12/12/2020. EF 48%. Echo Findings Left Ventricle Left ventricle size is normal. Mildly increased wall thickness. Moderate septal thickening. Normal left ventricular systolic function. EF by 2D Simpsons Biplane is 76%. Normal wall motion. Normal diastolic function. Right Ventricle Right ventricle size is normal. RV basal diameter is 3.6 cm. RV mid diameter is 3.3 cm. Normal systolic function. TAPSE is normal. TAPSE is 2.5 cm. Left Atrium Left atrium size is mildly increased (LA volume index 35-41 mL/m2).LA Vol Index A/L is 36 mL/m2. Interatrial Septum Interatrial septum was not well visualized. No interatrial shunt visualized on color Doppler. Right Atrium Not well visualized. Right atrium size is normal. Aortic Valve Mildly thickened cusps. Mildly calcified cusps. Left, right and noncoronary cusps sclerosis. Mild (1+) regurgitation. Aortic sclerosis/mild stenosis. Mitral Valve Mildly thickened leaflets. Mild annular calcification (posterior). Trace regurgitation. No stenosis noted. Tricuspid Valve Not well visualized. Valve structure is normal. Trace regurgitation. Pulmonic Valve Valve structure is normal. Mildly thickened cusps. Mild (1+) regurgitation. Aorta Normal sized sinuses of Valsalva. Sinuses of Valsalva diameter is 3.6 cm. Moderately dilated ascending aorta. Ao ascending diameter is 4.0 cm. IVC/Hepatic Veins IVC is mildly dilated. IVC diameter is dilated and decreases greater than 50% during inspiration; therefore the estimated right atrial pressure is intermediate (~8 mmHg). Pericardium Evidence of prominent epicardial fat. No pericardial effusion. Study Details Image quality: poor. Heart rate: 63 bpm. Blood pressure: 93/47 mmHg. Technical qualifiers: Technically difficult study with poor endocardial visualization. Ultrasound enhancement agent was given to enhance imaging. Antimicrobials,Start/End Dates: Pip/tazo Ceftr 10/25- Oseltamivir 10/23- Vanco Impression: Septic shock. Streptococcus parasanguinis bacteremia. Pneumonia due to Influenza A. COPD with evidence of chronic pulmonary hypertension. NSTEMI Plan: Pt sick due to septic shock due to streptococcus parasanguinis bacteremia and Influenza A pneumonia. Afebrile, hemodynamically ok. Off pressor. Blood cxs were repted today, will follow. 2D ECHO did not describe any vegetation. Continue ceftriaxone for 2 weeks and oseltamivir for 5 days. Rept sputum cx. High level complexity medical decision making. Will follow. Thank you. Total time 75 minutes on this day of encounter includes counseling, coordinating plan of care, record and documentation review before and after visit including documentation and time not explicitly included on EMR time stamp for accounting for open encounter. Associated Order(s): PHARMACY TO DOSE VANCO Vancomycin therapy has been discontinued by Dr. Cormier on 10/26/23. Thank you for the consult. Pharmacy signing off for vancomycin dosing. Bernice Pendleton RPh, PharmD Date: 10/26/23 Time: 8:31 AM Associated Order(s): IP CONSULT TO CARDIOLOGY [facility] [place] [facility] [place], [place] Cardiology /Electrophysiology Consult Note Reason for Consult/Chief Complaint: Hypotension and elevated troponins Referring provider: ICU Established shopping inspector: None History of Present Illness: Adore Walter is a 88 y.o. female presents last night to [facility] from [facility] with complaints of change in mentation and hypotension. According to staff, pt lives with at [facility] and both are normally A&Ox3 at baseline. Full code status is desired by whom is next of kin reportedly. Workup in ER with routine labs and imaging. Labs significant for Na 131, Bicarb 21, BUN 31, SCr 2.17, Glucose 125, Trop 0.993, BNP 6090, lactic 1.3, H&H 11.4/34.5, WBC 8.7. EKG with SR, no ST abnls. CT head, c/a/p unremarkable. She presented hypotensive with SBP 62. Work up currently underway. Has resulted positive for flu. Mildly elevated troponins w/o significant ECG changes. Now resuscitated with volume and levo. She is awake and alert. No CV symptoms. No prior hs of CV problems. Echo a couple years back showed EF 50% mild degenerative valve disease. Assessment/Plan HF NYHA Class [x] I [] II [] III [] IV Demand ischemia from hypotension (resolved). No ACS (can stp heparin). Obtain echo for updated EF. Will follow. Sepsis. Urine looks infected if not contaminated. Also resulted positive for Flu. Empiric ATB and Tamaflu. Lactate normal. Medications: aspirin, 300 mg, Rectal, Once Hydrocortisone Sod Suc (PF), 100 mg, IntraVENous, q8h lactated ringers, 30 mL/kg, IntraVENous, Once oseltamivir, 30 mg, Oral, Daily piperacillin-tazobactam, 2,250 mg, IntraVENous, q6h piperacillin-tazobactam, , , sodium chloride 0.9%, 10 mL, IntraVENous, 2 times per day sodium chloride 0.9%, 5-40 mL, IntraCATHeter, q8h [START ON 10/25/2023] vancomycin, 500 mg, IntraVENous, q24h Infusion Medications: heparin, 5-30 Units/kg/hr, Last Rate: 10 Units/kg/hr (10/24/23 0729) norepinephrine, 1-100 mcg/min, Last Rate: 8 mcg/min (10/24/23 0843) Physical Examination: Vitals: 10/24/23 0747 10/24/23 0800 10/24/23 0815 10/24/23 0841 BP: BP Location: Patient Position: Pulse: 69 66 61 70 Resp: Temp: 36.3 C (97.4 F) TempSrc: Oral SpO2: 93% 95% 97% 96% Weight: Intake/Output Summary (Last 24 hours) at 10/24/2023 1005 Last data filed at 10/24/2023 0602 Gross per 24 hour Intake -- Output 0 ml Net 0 ml Wt Readings from Last 3 Encounters: 10/24/23 137 lb 2 oz (62.2 kg) 09/16/21 127 lb (57.6 kg) 09/09/21 125 lb (56.7 kg) Physical Exam Constitutional: Appearance: Normal appearance. Comments: Warm good color HENT: Head: Normocephalic. Eyes: Extraocular Movements: Extraocular movements intact. Conjunctiva/sclera: Conjunctivae normal. Pupils: Pupils are equal, round, and reactive to light. Neck: Vascular: No carotid bruit. Cardiovascular: Rate and Rhythm: Normal rate and regular rhythm. Pulses: Carotid pulses are 2+ on the right side and 2+ on the left side. Radial pulses are 2+ on the left side. Femoral pulses are 2+ on the right side and 2+ on the left side. Right popliteal pulse not accessible and left popliteal pulse not accessible. Posterior tibial pulses are 1+ on the right side. Heart sounds: Murmur heard. Systolic murmur is present with a grade of 1/6. No S3 or S4 sounds. Pulmonary: Comments: Clear anteriorly. Abdominal: General: Bowel sounds are normal. Palpations: Abdomen is soft. Musculoskeletal: Cervical back: Normal range of motion. Right lower leg: No edema. Left lower leg: No edema. Skin: General: Skin is warm and dry. Neurological: General: No focal deficit present. Mental Status: She is alert and oriented to person, place, and time. Mental status is at baseline. Psychiatric: Mood and Affect: Mood normal. Laboratory Tests: Recent Labs 10/23/236 10/24/23 0415 NA 131* 133* K 3.9 3.5 CL 100 107 CO2 21* 19* BUN 31* 31* CREATININE 2.17* 1.97* EGFR 21.7* 24.4* Recent Labs 10/23/23212510/24/23 0022 10/24/23 0306 10/24/235 TROPONINI 0.993* 0.756* 0.544* 0.463* Recent Labs 10/23/23212510/24/23 030 WBC 8.7 8.5 HGB 11.4* 11.2* HCT 34.5* 34.0* MCV 90.1 90.2 PLT 200 214 No results found for: "HGBA1C" Lab Results Component Value Date TSH 0.082 (L) 10/23/2023 Lab Results Component Value Date CHOL 152 09/11/2021 Lab Results Component Value Date HDL 72 (H) 09/11/2021 No results found for: "LDLCALC" Lab Results Component Value Date TRIG 81 09/11/2021 No results found for: "CHOLHDL" No results found for: LDLCHOLESTER Recent Labs 10/23/232125 BNP 6,090* No results for input(s): "INR" in the last 72 hours. Results from last 7 days Lab Units 10/24/2341410/23/232125 AST U/L 25 29 ALT U/L 11 12 No results found for: "IRON", "TIBC", "FERRITIN" Radiology: CXR: personally reviewed: Rotated some mild vascular prominence. CT scan reports reviewed. Cardiac Tests Personally Reviewed: Last EKG 10/23/23 ECG 12-LEAD (Preliminary) This result has not been signed. Information might be incomplete. Impression Sinus rhythm Atrial premature complexes Nonspecific intraventricular conduction delay Low voltage, extremity and precordial leads Borderline prolonged QT interval Telemetry findings: NSR Reports reviewed: Last Echo 12/12/20 (Final) Narrative Ordered by an unspecified provider. 30 min critical care time Gurmeet Villalobos DO DATE of SERVICE: 10/24/2023 Pharmacy Managed Vancomycin Dosing Service Consult Note Consult Date: 10/24/23 Consulted By: Aaron Mejia Room:[id number] A Patient Name: Adore Walter Allergies: Patient has no known allergies. Age: 88 y.o. Sex: female Ht: TBW: Weight: 59 kg (130 lb) BMI: Body mass index is 24.56 kg/m . DW: 59 kg Calculated CrCl: 17 ml/min Lab Results Component Value Date CREATININE 2.17 (H) 10/23/2023 CREATININE 0.50 (L) 10/06/2021 CREATININE 0.56 10/03/2021 BUN 31 (H) 10/23/2023 BUN 10 10/06/2021 BUN 21 (H) 10/03/2021 WBC 8.7 10/23/2023 WBC 7.7 10/06/2021 WBC 8.6 10/03/2021 Trough: No results found for: VANCOTROUGH Random: No results found for: VANCORANDOM Infectious Diagnosis: Sepsis of unknown etiology (goal trough = 15-20 mcg/mL, goal AUC = 400-600) Antimicrobials: Patient recently received an antibiotic (last 12 hours) None Assessment/Plan: Start Vancomycin 1.25 grams once followed by 500 mg Q 24 hours based on patient age, weight, renal function, and infectious diagnosis (projected AUC = 505 ). Will draw random level at 0600 10/25/23, and adjust dosing as appropriate. Thank you for this consult. Please page/call with questions. Date: 10/24/23 Time: 1:42 AM Name: Ghassan Maynard RPh, PharmD Ext. [phone] documented in this encounter [facility] 10-26-2023 Consult note Associated Order (s): PHARMACY TO DOSE VANCO Vancomycin therapy has been discontinued by Dr. Cormier on 10/26/23. Thank you for the consult. Pharmacy signing off for vancomycin dosing. Bernice Pendleton RPh, PharmD Date: 10/26/23 Time: 8:31 AM [facility] 10-26-2023 Note Formatting of this n ote might be different from the original. ICU Transfer Checklist Transfer Med Reconciliation (resume home meds if able, convert to PO if able) Complete Antibiotics (name, indication, duration, convert to PO if able) Yes, addressed in today's progress note Steroid (indication, duration, convert to PO if able) Yes, addressed in today's progress note Anticipated [place] Medications (ICU initiated) or Dose Changes and Indication Anticipate that patient may need prolonged course of antibiotics for bacteremia Permanently Discontinued Home Medications and Reason for medication contraindication No Hoffman Catheter (please remove if able. Note: place DC order) No Central Line (please remove if able. Note: place DC order) No Transfer Discussed with: Dr. Casarez If additional questions for ICU team within 24 hours of ICU transfer, page #[phone] for clarifications. [facility] 10-26-2023 Note Formatting of this n ote might be different from the original. ICU Transfer Checklist Transfer Med Reconciliation (resume home meds if able, convert to PO if able) Complete Antibiotics (name, indication, duration, convert to PO if able) Yes, addressed in today's progress note Steroid (indication, duration, convert to PO if able) Yes, addressed in today's progress note Anticipated [place] Medications (ICU initiated) or Dose Changes and Indication Anticipate that patient may need prolonged course of antibiotics for bacteremia Permanently Discontinued Home Medications and Reason for medication contraindication No Hoffman Catheter (please remove if able. Note: place DC order) No Central Line (please remove if able. Note: place DC order) No Transfer Discussed with: Dr. Casarez If additional questions for ICU team within 24 hours of ICU transfer, page #[phone] for clarifications. [facility] 10-26-2023 Note Formatting of this n ote might be different from the original. PATIENT TRANSFERRED OUT OF ICU PATIENT ACCEPTED TO [facility] Hypotensive on admission, requiring pressor support. Sepsis with strep bacteremia. On broad coverage abx ,repeat cultures pending. ID to follow. Off pressors as of yesterday. Stable for transfer out of ICU. Discussed with Medicare Biller, Dr. Goss. [facility] 10-26-2023 Note Formatting of this n ote might be different from the original. PATIENT TRANSFERRED OUT OF ICU [facility] Hypotensive on admission, requiring pressor support. Sepsis with strep bacteremia. On broad coverage abx ,repeat cultures pending. ID to follow. Off pressors as of yesterday. Stable for transfer out of ICU. Discussed with Medicare Biller, Dr. Goss. [facility] 10-25-2023 Note Formatting of this n ote is different from the original. Images from the original note were not included. Care Management Progress Note Patient remains on 4S for influenza A, HTN and AMS Clinical updates: Also dx with NSTEMI, however Trops are neg. AMS has resolved, patient is A&Ox4 per floor nurse. Remains on Levophed for HTN. Came from [facility] will need PT and OT orders prior to return. Clinical team notified. Discharge plan: [facility] vs SNF Discharge obstacles: Awaiting clinical stability TCC will continue to follow. Discharge Milestones and Delays Expected Date/Time: 10/26/[address] discharge order Complete med reconciliation Case mgmt discharge readiness Clinical Stability Diagnsotic Workup Expected Discharge History Expected Date/Time Set By Reviewed At 10/26/2023 JANET Rodriguez 10/25/2023 10:13 AM 10/26/2023 Aaron Mejia APRN - JULES 10/24/2023 1:12 AM 10/26/2023 ADARSH Medina CNP 10/23/2023 11:54 PM Length of Stay (Days): 2 GMLOS: No GMLOS Documented [facility] 10-25-2023 Note Formatting of this n ote is different from the original. Images from the original note were not included. Care Management Progress Note Patient remains on 4S for influenza A, HTN and AMS Clinical updates: Also dx with NSTEMI, however Trops are neg. AMS has resolved, patient is A&Ox4 per floor nurse. Remains on Levophed for HTN. Came from [facility] will need PT and OT orders prior to return. Clinical team notified. Discharge plan: [facility] vs SNF Discharge obstacles: Awaiting clinical stability TCC will continue to follow. Discharge Milestones and Delays Expected Date/Time: 10/26/[address] discharge order Complete med reconciliation Case mgmt discharge readiness Clinical Stability Diagnsotic Workup Expected Discharge History Expected Date/Time Set By Reviewed At 10/26/2023 JANET Rodriguez 10/25/2023 10:13 AM 10/26/2023 ADARSH Medina CNP 10/24/2023 1:12 AM 10/26/2023 ADARSH Medina CNP 10/23/2023 11:54 PM Length of Stay (Days): 2 GMLOS: No GMLOS Documented [facility] 10-24-2023 Note Formatting of this n ote might be different from the original. 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 Name/Contact Information: Popeye Smith Cognition/Language: Unable to Assess (patient on droplet isolation in ICU - phoned Popeye smith, to complete IA) Permission given to speak with patient inside sales account representative/caregiver as indicated: Confirmation of Payer with patient/family: Yes Payer Name: [employer] Medicaid : No Confirmation of Primary Care Physician: Confirmed PCP Name: "the head doctor at the place she lives" Seen in last 2 years?: Yes Primary Caregiver: Other (Comment) (F staff) If assistance needed, confirmed caregiver ready, willing and able to care for patient at discharge: Yes Confirmed with: ECF staff Living Arrangements Current Residence: Number of Floors Number of Entry Steps: Bed/Bath Levels: Facility: [facility]Term[facility] Facility Name: [facility] Plan to Return: Yes Lives with: Other (Comment) (other [facility] residents) Support Systems: Children, Family members, Comments (Other) ([facility] staff) Activities of Daily Living Ambulation: Total Care (wheelchair) Bathing/Dressing: Assistance Elimination/Continence/Toileting: Assistance Feeding: Independent Who Assists with Activities of Daily Living: ECF staff Instrumental Activities of Daily Living Prescription Coverage: Yes Pharmacy Used: [facility] pharmacy Medication Management: Medication dispenser Who assists with medication securing and setup?: ECF staff Transportation/Shopping: Assistance Provider Transportation/Shopping Assistance Provider Name: Ambulance Transportation Mode: Payer provided transport service Needs Assistance with Transportation at Discharge: Yes ( will set up transport for patient back to [facility]) Meal Preparation: Assistance Provider Meal Prep Assistance Provider Name: ECF staff Laundry/Cleaning: Assistance Provider Laundry/Cleaning Assistance Provider Name: ECF staff Finances/Bill Paying: Assistance Provider Finances/Bill Payer Assistance Provider Name: Popeye Smith Communication: Independent Types of Care Services/Equipment Utilized Care Services: (N/A) Dialysis Type: NA Durable Medical Equipment: Wheelchair (standard or power), Hospital Bed Patient's Goal/Discharge Plan Patient expects to be discharged to: return to [facility] Discharge Planning Actions: Continue to follow, Penitentiary Facility referral indicated [place] of choice: [place] of choice discussed Patient's Choice Rights and [employer] and Collaborative Relationships Disclosed as Indicated for Post-Acute Care: Interdisciplinary Team Engagement: Social Work Referral for: Additional Information: Phoned tazPopeye Marta, at [phone]. Per previous note, for call back. Son returned call. Introduced self and role. Reason for admission: altered mental status. EMS noted patient was hypotensive upon arrival to facility. Labs significant for Na 131, Bicarb 21, BUN 31, SCr 2.17, Glucose 125, Trop 0.993, BNP 6090, lactic 1.3, H&H 11.4/34.5, WBC 8.7. EKG with SR, no ST abnls. She presented hypotensive with SBP 62. She remained hypotensive despite LR bolus. ICU was consulted for cardiogenic shock but lactic of 1 and being warm/dry did not support shock. However, due to hypotension and use of vasopressors, admitted to MICU where she remains. Arterial line inserted. Found to have encephalopathy, shock of unclear etiology, influenza A infection, NSTEMI. Mental status appears improved this morning. Consults: Critical Care, Cardio, TENNIS PLAYER PT/OT: therapies not ordered at this time Current DCP: return to [facility] Submitted return referral via [facility]Port. Discharge planning needs discussed. Son denied any needs. Son understands discharge plan. TCC will continue to follow. Gonzalez Gonzalez RN [facility] 10-24-2023 Note Formatting of this n ote might be different from the original. 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 Name/Contact Information: Popeye Smith Cognition/Language: Unable to Assess (patient on droplet isolation in ICU - phoned Popeye smith, to complete IA) Permission given to speak with patient inside sales account representative/caregiver as indicated: Confirmation of Payer with patient/family: Yes Payer Name: [place] Medicaid : No Confirmation of Primary Care Physician: Confirmed PCP Name: "the head doctor at the place she lives" Seen in last 2 years?: Yes Primary Caregiver: Other (Comment) ([facility] staff) If assistance needed, confirmed caregiver ready, willing and able to care for patient at discharge: Yes Confirmed with: [facility] staff Living Arrangements Current Residence: Number of Floors Number of Entry Steps: Bed/Bath Levels: Facility: Long-Term/Residental Care Facility Name: [facility] Plan to Return: Yes Lives with: Other (Comment) (other [facility] residents) Support Systems: Children, Family members, Comments (Other) (F staff) Activities of Daily Living Ambulation: Total Care (wheelchair) Bathing/Dressing: Assistance Elimination/Continence/Toileting: Assistance Feeding: Independent Who Assists with Activities of Daily Living: ECF staff Instrumental Activities of Daily Living Prescription Coverage: Yes Pharmacy Used: [facility] pharmacy Medication Management: Medication dispenser Who assists with medication securing and setup?: ECF staff Transportation/Shopping: Assistance Provider Transportation/Shopping Assistance Provider Name: Ambulance Transportation Mode: Payer provided transport service Needs Assistance with Transportation at Discharge: Yes ( will set up transport for patient back to [facility]) Meal Preparation: Assistance Provider Meal Prep Assistance Provider Name: ECF staff Laundry/Cleaning: Assistance Provider Laundry/Cleaning Assistance Provider Name: [facility] staff Finances/Bill Paying: Assistance Provider Finances/Bill Payer Assistance Provider Name: Popeye Smith Communication: Independent Types of Care Services/Equipment Utilized Care Services: (N/A) Dialysis Type: NA Durable Medical Equipment: Wheelchair (standard or power), Hospital Bed Patient's Goal/Discharge Plan Patient expects to be discharged to: return to [facility] Discharge Planning Actions: Continue to follow, Penitentiary Facility referral indicated [place] of choice: [place] of choice discussed Patient's Choice Rights and [employer] and Collaborative Relationships Disclosed as Indicated for Post-Acute Care: Interdisciplinary Team Engagement: Social Work Referral for: Additional Information: Phoned Popeye smith, at [phone]. Per previous note, for call back. Son returned call. Introduced self and role. Reason for admission: altered mental status. EMS noted patient was hypotensive upon arrival to facility. Labs significant for Na 131, Bicarb 21, BUN 31, SCr 2.17, Glucose 125, Trop 0.993, BNP 6090, lactic 1.3, H&H 11.4/34.5, WBC 8.7. EKG with SR, no ST abnls. She presented hypotensive with SBP 62. She remained hypotensive despite LR bolus. ICU was consulted for cardiogenic shock but lactic of 1 and being warm/dry did not support shock. However, due to hypotension and use of vasopressors, admitted to MICU where she remains. Arterial line inserted. Found to have encephalopathy, shock of unclear etiology, influenza A infection, NSTEMI. Mental status appears improved this morning. Consults: Critical Care, Cardio, TENNIS PLAYER PT/OT: therapies not ordered at this time Current DCP: return to [facility] Submitted return referral via [facility]Port. Discharge planning needs discussed. Son denied any needs. Son understands discharge plan. TCC will continue to follow. Gonzalez Gonzalez RN [facility] [employer] 10-24-2023 Note Formatting of this n ote might be different from the original. Patient admitted with AMS and hypotension. On droplet isolation for influenza. Phoned Popeye smith, at [phone] to attempt to complete IA. Received VM. Left [employer] appropriate message requesting call back. Provided TCC's cell number and working hours. Assured son someone would follow up tomorrow if he is unable to call before end of business today. TCC will continue to follow. [employer] 10-24-2023 Note Formatting of this n ote might be different from the original. Patient admitted with AMS and hypotension. On droplet isolation for influenza. Phoned Popeye smith, at [phone] to attempt to complete IA. Received VM. Left HIPAA appropriate message requesting call back. Provided TCC's cell number and working hours. Assured son someone would follow up tomorrow if he is unable to call before end of business today. TCC will continue to follow. [facility] 10-24-2023 Consult note Associated Order (s): IP CONSULT TO CARDIOLOGY [facility] [place] [facility] [place] [place] Cardiology /Electrophysiology Consult Note Reason for Consult/Chief Complaint: Hypotension and elevated troponins Referring provider: ICU Established shopping inspector: None History of Present Illness: Adore Walter is a 88 y.o. female presents last [facility] to [facility] from [facility] with complaints of change in mentation and hypotension. According to staff, pt lives with at [facility] and both are normally A&Ox3 at baseline. Full code status is desired by whom is next of kin reportedly. Workup in ER with routine labs and imaging. Labs significant for Na 131, Bicarb 21, BUN 31, SCr 2.17, Glucose 125, Trop 0.993, BNP 6090, lactic 1.3, H&H 11.4/34.5, WBC 8.7. EKG with SR, no ST abnls. CT head, c/a/p unremarkable. She presented hypotensive with SBP 62. Work up currently underway. Has resulted positive for flu. Mildly elevated troponins w/o significant ECG changes. Now resuscitated with volume and levo. She is awake and alert. No CV symptoms. No prior hs of CV problems. Echo a couple years back showed EF 50% mild degenerative valve disease. Assessment/Plan HF NYHA Class [x] I [] II [] III [] IV Demand ischemia from hypotension (resolved). No ACS (can stp heparin). Obtain echo for updated EF. Will follow. Sepsis. Urine looks infected if not contaminated. Also resulted positive for Flu. Empiric ATB and Tamaflu. Lactate normal. Medications: aspirin, 300 mg, Rectal, Once Hydrocortisone Sod Suc (PF), 100 mg, IntraVENous, q8h lactated ringers, 30 mL/kg, IntraVENous, Once oseltamivir, 30 mg, Oral, Daily piperacillin-tazobactam, 2,250 mg, IntraVENous, q6h piperacillin-tazobactam, , , sodium chloride 0.9%, 10 mL, IntraVENous, 2 times per day sodium chloride 0.9%, 5-40 mL, IntraCATHeter, q8h [START ON 10/25/2023] vancomycin, 500 mg, IntraVENous, q24h Infusion Medications: heparin, 5-30 Units/kg/hr, Last Rate: 10 Units/kg/hr (10/24/23 0729) norepinephrine, 1-100 mcg/min, Last Rate: 8 mcg/min (10/24/23 0843) Physical Examination: Vitals: 10/24/23 0747 10/24/23 0800 10/24/23 0815 10/24/23 0841 BP: BP Location: Patient Position: Pulse: 69 66 61 70 Resp: Temp: 36.3 C (97.4 F) TempSrc: Oral SpO2: 93% 95% 97% 96% Weight: Intake/Output Summary (Last 24 hours) at 10/24/2023 1005 Last data filed at 10/24/2023 0602 Gross per 24 hour Intake -- Output 0 ml Net 0 ml Wt Readings from Last 3 Encounters: 10/24/23 137 lb 2 oz (62.2 kg) 09/16/21 127 lb (57.6 kg) 09/09/21 125 lb (56.7 kg) Physical Exam Constitutional: Appearance: Normal appearance. Comments: Warm good color HENT: Head: Normocephalic. Eyes: Extraocular Movements: Extraocular movements intact. Conjunctiva/sclera: Conjunctivae normal. Pupils: Pupils are equal, round, and reactive to light. Neck: Vascular: No carotid bruit. Cardiovascular: Rate and Rhythm: Normal rate and regular rhythm. Pulses: Carotid pulses are 2+ on the right side and 2+ on the left side. Radial pulses are 2+ on the left side. Femoral pulses are 2+ on the right side and 2+ on the left side. Right popliteal pulse not accessible and left popliteal pulse not accessible. Posterior tibial pulses are 1+ on the right side. Heart sounds: Murmur heard. Systolic murmur is present with a grade of 1/6. No S3 or S4 sounds. Pulmonary: Comments: Clear anteriorly. Abdominal: General: Bowel sounds are normal. Palpations: Abdomen is soft. Musculoskeletal: Cervical back: Normal range of motion. Right lower leg: No edema. Left lower leg: No edema. Skin: General: Skin is warm and dry. Neurological: General: No focal deficit present. Mental Status: She is alert and oriented to person, place, and time. Mental status is at baseline. Psychiatric: Mood and Affect: Mood normal. Laboratory Tests: Recent Labs 10/23/23212510/24/23 0415 NA 131* 133* K 3.9 3.5 CL 100 107 CO2 21* 19* BUN 31* 31* CREATININE 2.17* 1.97* EGFR 21.7* 24.4* Recent Labs 10/23/23212510/24/23 0022 10/24/23 0306 10/24/23 0415 TROPONINI 0.993* 0.756* 0.544* 0.463* Recent Labs 10/23/23212510/24/23 0306 WBC 8.7 8.5 HGB 11.4* 11.2* HCT 34.5* 34.0* MCV 90.1 90.2 PLT 200 214 No results found for: "HGBA1C" Lab Results Component Value Date TSH 0.082 (L) 10/23/2023 Lab Results Component Value Date CHOL 152 09/11/2021 Lab Results Component Value Date HDL 72 (H) 09/11/2021 No results found for: "LDLCALC" Lab Results Component Value Date TRIG 81 09/11/2021 No results found for: "CHOLHDL" No results found for: LDLCHOLESTER Recent Labs 10/23/232125 BNP 6,090* No results for input(s): "INR" in the last 72 hours. Results from last 7 days Lab Units 10/24/2341410/23/232125 AST U/L 25 29 ALT U/L 11 12 No results found for: "IRON", "TIBC", "FERRITIN" Radiology: CXR: personally reviewed: Rotated some mild vascular prominence. CT scan reports reviewed. Cardiac Tests Personally Reviewed: Last EKG 10/23/23 ECG 12-LEAD (Preliminary) This result has not been signed. Information might be incomplete. Impression Sinus rhythm Atrial premature complexes Nonspecific intraventricular conduction delay Low voltage, extremity and precordial leads Borderline prolonged QT interval Telemetry findings: NSR Reports reviewed: Last Echo 12/12/20 (Final) Narrative Ordered by an unspecified provider. 30 min critical care time Gurmeet Villalobos DO DATE of SERVICE: 10/24/2023 [facility] Phone: 10-24-2023 Note Formatting of this n ote might be different from the original. H&P reviewed, elderly female admitted from [facility] for encephalopathy, shock of unclear etiology, influenza A infection, NSTEMI. Mental status appears improved this morning. She is resting comfortably, Levophed requirements slowly coming down, I administered an additional 500 mL bolus of LR. Continue broad spectrum antibiotics and Tamiflu. Continue heparin infusion, troponin down-trending, she denies chest pain, formal echo and cardiology evaluation pending. Stress dose steroids for 3 days. UA looks concerning for UTI, culture in process. Will continue to monitor. Addendum 12:19 PM: Discussed with cardiology, agree troponin elevation likely demand mediated, recommended stopping heparin infusion. Will follow-up formal echo. [facility] Phone: 10-24-2023 Note Formatting of this n ote might be different from the original. H&P reviewed, elderly female admitted from [facility] for encephalopathy, shock of unclear etiology, influenza A infection, NSTEMI. Mental status appears improved this morning. She is resting comfortably, Levophed requirements slowly coming down, I administered an additional 500 mL bolus of LR. Continue broad spectrum antibiotics and Tamiflu. Continue heparin infusion, troponin down-trending, she denies chest pain, formal echo and cardiology evaluation pending. Stress dose steroids for 3 days. UA looks concerning for UTI, culture in process. Will continue to monitor. Addendum 12:19 PM: Discussed with cardiology, agree troponin elevation likely demand mediated, recommended stopping heparin infusion. Will follow-up formal echo. [facility] Phone: 10-24-2023 Procedure note Associated Ord er(s): Central Line Insertion Post-Procedure Diagnose(s): NSTEMI (non-ST elevated myocardial infarction) (HCC) Central Line Insertion Date/Time: 10/24/2023 2:35 AM Performed by: Aaron Mejia APRN - EXECUTIVE CHAIRMAN Authorized by: ADARSH Medina CNP Consent: Consent was not able to be obtained because the procedure was emergent or the patient was unable to give consent and a surrogate decision maker was not available. Timeout: Completed immediately prior to the start of the procedure which included verification of the correct patient, correct site and agreement on the procedure to be done. Indication: Infusion(s) with high risk of extravasation injury Anesthetic: Local anesthetic used: lidocaine without epinephrine Procedure Details: Preparation: skin prepped with chlorhexidine Skin prep agent dried: skin prep agent completely dried prior to procedure Sterile barriers: all five maximum sterile barriers used - cap, mask, sterile gown, sterile gloves, and large sterile sheet Hand hygiene: hand hygiene performed prior to central venous catheter insertion Sterile technique: Sterile technique maintained throughout procedure. Central Line Type: central venous catheter Orientation: right Location details: internal jugular Patient position: Trendelenburg Catheter type: triple lumen Catheter size: 7 Fr Pre-procedure: landmarks identified Number of attempts: 1 Ultrasound guidance: yes Post-Procedure: Post-procedure: line sutured and antimicrobial dressing applied Description/Findings: dark, non-pulsatile blood return obtained from all lumens Estimated blood loss: < 10 mL Complications: No apparent complications Follow-up chest x-ray: ordered Assistants & Supervision: I personally performed the procedure documented as signed by this procedure note Desk Manager(s): N/A No supervision required [facility] 10-24-2023 Procedure note Associated Ord er(s): Central Line Insertion Post-Procedure Diagnose(s): NSTEMI (non-ST elevated myocardial infarction) (HCC) Central Line Insertion Date/Time: 10/24/2023 2:35 AM Performed by: ADARSH Medina CNP Authorized by: ADARSH Medina CNP Consent: Consent was not able to be obtained because the procedure was emergent or the patient was unable to give consent and a surrogate decision maker was not available. Timeout: Completed immediately prior to the start of the procedure which included verification of the correct patient, correct site and agreement on the procedure to be done. Indication: Infusion(s) with high risk of extravasation injury Anesthetic: Local anesthetic used: lidocaine without epinephrine Procedure Details: Preparation: skin prepped with chlorhexidine Skin prep agent dried: skin prep agent completely dried prior to procedure Sterile barriers: all five maximum sterile barriers used - cap, mask, sterile gown, sterile gloves, and large sterile sheet Hand hygiene: hand hygiene performed prior to central venous catheter insertion Sterile technique: Sterile technique maintained throughout procedure. Central Line Type: central venous catheter Orientation: right Location details: internal jugular Patient position: Trendelenburg Catheter type: triple lumen Catheter size: 7 Fr Pre-procedure: landmarks identified Number of attempts: 1 Ultrasound guidance: yes Post-Procedure: Post-procedure: line sutured and antimicrobial dressing applied Description/Findings: dark, non-pulsatile blood return obtained from all lumens Estimated blood loss: < 10 mL Complications: No apparent complications Follow-up chest x-ray: ordered Assistants & Supervision: I personally performed the procedure documented as signed by this procedure note Desk Manager(s): N/A No supervision required Associated Order(s): Arterial Line Insertion Post-Procedure Diagnose(s): NSTEMI (non-ST elevated myocardial infarction) (HCC) Arterial Line Insertion Date/Time: 10/24/2023 2:33 AM Performed by: ADARSH Medina CNP Authorized by: ADARSH Medina CNP Consent: Consent was not able to be obtained because the procedure was emergent or the patient was unable to give consent and a surrogate decision maker was not available. Timeout: Completed immediately prior to the start of the procedure which included verification of the correct patient, correct site and agreement on the procedure to be done. Indications: Indications: hemodynamic monitoring Anesthetic: Local anesthetic used: lidocaine without epinephrine Preparation: Patient was prepped and draped in usual sterile fashion. Skin prepped: skin prepped with chlorhexidine Procedure Details: Orientation: right Location: radial Douglas's test normal: yes Number of attempts: 1 Post-Procedure: Post-procedure: line sutured and antimicrobial dressing applied Description/Findings: Bright red pulsatile blood return noted Estimated blood loss: < 10 mL Complications: No apparent complications Assistants & Supervision: I personally performed the procedure documented as signed by this procedure note Desk Manager(s): N/A No supervision required documented in this encounter [facility] 10-24-2023 Procedure note Associated Ord er(s): Arterial Line Insertion Post-Procedure Diagnose(s): NSTEMI (non-ST elevated myocardial infarction) (HCC) Arterial Line Insertion Date/Time: 10/24/2023 2:33 AM Performed by: ADARSH Medina CNP Authorized by: ADARSH Medina CNP Consent: Consent was not able to be obtained because the procedure was emergent or the patient was unable to give consent and a surrogate decision maker was not available. Timeout: Completed immediately prior to the start of the procedure which included verification of the correct patient, correct site and agreement on the procedure to be done. Indications: Indications: hemodynamic monitoring Anesthetic: Local anesthetic used: lidocaine without epinephrine Preparation: Patient was prepped and draped in usual sterile fashion. Skin prepped: skin prepped with chlorhexidine Procedure Details: Orientation: right Location: radial Douglas's test normal: yes Number of attempts: 1 Post-Procedure: Post-procedure: line sutured and antimicrobial dressing applied Description/Findings: Bright red pulsatile blood return noted Estimated blood loss: < 10 mL Complications: No apparent complications Assistants & Supervision: I personally performed the procedure documented as signed by this procedure note Desk Manager(s): N/A No supervision required [facility] 10-24-2023 Consult note Formatting of th is note is different from the original. Pharmacy Managed Vancomycin Dosing Service Consult Note Consult Date: 10/24/23 Consulted By: Aaron Mejia Room: A Patient Name: Adore Walter Allergies: Patient has no known allergies. Age: 88 y.o. Sex: female Ht: TBW: Weight: 59 kg (130 lb) BMI: Body mass index is 24.56 kg/m . DW: 59 kg Calculated CrCl: 17 ml/min Lab Results Component Value Date CREATININE 2.17 (H) 10/23/2023 CREATININE 0.50 (L) 10/06/2021 CREATININE 0.56 10/03/2021 BUN 31 (H) 10/23/2023 BUN 10 10/06/2021 BUN 21 (H) 10/03/2021 WBC 8.7 10/23/2023 WBC 7.7 10/06/2021 WBC 8.6 10/03/2021 Trough: No results found for: VANCOTROUGH Random: No results found for: VANCORANDOM Infectious Diagnosis: Sepsis of unknown etiology (goal trough = 15-20 mcg/mL, goal AUC = 400-600) Antimicrobials: Patient recently received an antibiotic (last 12 hours) None Assessment/Plan: Start Vancomycin 1.25 grams once followed by 500 mg Q 24 hours based on patient age, weight, renal function, and infectious diagnosis (projected AUC = 505 ). Will draw random level at 0600 10/25/23, and adjust dosing as appropriate. Thank you for this consult. Please page/call with questions. Date: 10/24/23 Time: 1:42 AM Name: Ghassan Maynard RPh, PharmD Ext. [phone] [facility] 10-24-2023 Emergency department Note Report called to TY Prasad in ICU Jane Nunes RN 10/24/2346 [facility] 10-24-2023 Emergency department Note Report called to TY Prasad in ICU Jane Nunes RN 10/24/2346 ICU Provider in with patient at this time. Jane Nunes RN 10/23/232326 Emergency Department Encounter [facility] ED Patient: Adore Walter : 1935 Date of Evaluation: 10/23/2023 ED Supervising Physician: NOHEMI AREVALO MD I independently examined and evaluated Adore Walter. This will serve as my Supervisory note and shared attestation. I did perform a substantive portion of the visit including all aspects of the Medical Decision Making. I wore appropriate PPE for the entirety of this encounter. History: In brief, Adore Walter is a 88 y.o. female that presents to the emergency department from an F with a complaint of altered mental status. EMS was called. They noted that she had hypotension. They brought her to the emergency department with that as their concern. The patient herself states that she feels tired. She has a history of COPD. Focused exam: On examination the patient is an older female found lying on a cart. Her automated blood pressure is 62/47. The chest is clear. Normal cardiac exam. Abdomen is soft and is nontender. Bowel sounds are normal active. Differential Diagnosis: Differential diagnosis includes acute coronary syndrome, metabolic abnormality, dehydration. Diagnostic testing undertaken, as well as those tests considered but not ordered: An EKG will be obtained along with laboratory work. A manual blood pressure will be obtained. ED testing and evaluation will be obtained to help differentiate these diagnostic possibilities and determine the most likely cause. Brief ED course/MDM: The patient's blood pressure has been persistently low. We are awaiting blood work results. Disposition will be based on results of diagnostic testing and reassessment. EKG interpretation: An EKG is obtained. It demonstrates a normal sinus rhythm with a rate of 77. QRS axis is -42. No acute ST segment findings are found. There is no evidence of an ST elevation [place]. CRITICAL CARE TIME Total Critical Care time was 30 minutes, excluding separately reportable procedures. There was a high probability of clinically significant/life threatening deterioration in the patient's condition which required my urgent intervention. The patient's differential diagnosis included acute coronary syndrome, cardiac strain, metabolic abnormality, dehydration. The patient's troponin returned elevated. This may represent an NSTEMI. The critical care time was spent in initially evaluating the patient, discussing the patient's care with family, reviewing previous records, developing a diagnostic plan, reviewing and integrating test results into the patient's recommended treatment plan, as well as interacting with physicians who will be managing the patient after the emergency department. Sources of History: I evaluated other historical sources including previous outpatient records and admission records. Patient is aware of care plan. All diagnostic, treatment, and disposition decisions were made by myself in conjunction with the Resident. I also supervised kang portions of any procedures performed by the Resident. For all further details of the patient's emergency department visit, please see their documentation. (Comment: Please note this report has been produced using speech recognition software and may contain errors related to that system including errors in grammar, punctuation, and spelling, as well as words and phrases that may be inappropriate. If there are any questions or concerns please feel free to contact the dictating provider for clarification.) NOHEMI AREVALO MD Acute Care [facility] Nohemi Arevalo MD 10/23/232142 Nohemi Arevalo MD 10/23/232200 EMERGENCY DEPARTMENT ENCOUNTER Pt Name: Adore Walter Birthdate 1935 Date of evaluation: 10/23/2023 ED Provider: Shima Claros DO CHIEF COMPLAINT Chief Complaint Patient presents with Altered Mental Status HISTORY OF PRESENT ILLNESS (Location/Symptom, Timing/Onset, Context/Setting, Quality, Duration, Modifying Factors, Severity) Note limiting factors. I wore appropriate PPE for the entirety of this encounter. HPI Adore Walter is a 88 y.o. who presents to the emergency department with altered mental status. EMS noted that she was hypotensive at the facility where she resides. EMS was called and they noted that she was normotensive and even hypertensive for them. When they arrived here, she became hypotensive and slumped over in the cot. Patient only complaining of left shoulder pain that she says has been there for weeks. Has no pain anywhere else. Patient states that she feels tired and sleepy. She does have a history of COPD and heart failure. Nursing Notes were reviewed. Limitations to history: None Outside historians: EMS REVIEW OF SYSTEMS Review of Systems Pertinent positives and negatives as per HPI. PAST MEDICAL HISTORY History reviewed. No pertinent past medical history. SURGICAL HISTORY Past Surgical History: Procedure Laterality Date HIP SURGERY Right HYSTERECTOMY KNEE SURGERY Bilateral LEG MUSCLE SURGERY (HISTORICAL) Left CURRENT MEDICATIONS Previous Medications ACETAMINOPHEN (TYLENOL) 500 MG TABLET Take 500 mg by mouth every 6 hours as needed. CALCIUM CARBONATE (TUMS) 500 MG CHEWABLE TABLET Chew 500 mg daily. CARVEDILOL (COREG) 12.5 MG TABLET DOCUSATE SODIUM (DSS) 100 MG CAPSULE Take 1 capsule by mouth 2 times daily. ERGOCALCIFEROL (VITAMIN D2) 1.25 MG (45958 UT) CAPSULE FERROUS SULFATE 325 (65 FE) MG TABLET Take 325 mg by mouth daily (with breakfast). GABAPENTIN (NEURONTIN) 100 MG CAPSULE LIDOCAINE 4 % PATCH Place 1 patch on the skin daily. LISINOPRIL 5 MG TABLET ONDANSETRON ODT (ZOFRAN-ODT) 4 MG DISINTEGRATING TABLET Take 1 tablet by mouth every 8 hours as needed. SIMVASTATIN (ZOCOR) 10 MG TABLET ALLERGIES Patient has no known allergies. FAMILY HISTORY No family history on file. SOCIAL HISTORY Social History Socioeconomic History Marital status: Tobacco Use Smoking status: Former Packs/day: 0.50 Years: 35.00 Additional pack years: 0.00 Total pack years: 17.50 Types: Cigarettes Start date: 1956 Quit date: 1991 Years since quittin.2 Smokeless tobacco: Never Substance and Sexual Activity Alcohol use: Yes Comment: obdulia bullard Drug use: Never Social Determinants of Health Financial Resource Strain: Low Risk (05/26/2022) Overall Financial Resource Strain (CARDIA) Difficulty of Paying Living Expenses: Not hard at all Food Insecurity: No Food Insecurity (05/26/2022) Hunger Vital Sign Worried About Running Out of Food in the Last Year: Never true Ran Out of Food in the Last Year: Never true SCREENINGS [place] Coma Scale Best Eye Response: Spontaneous Best Verbal Response: Oriented Best Motor Response: Follows commands [place] Coma Scale Score: 15 PHYSICAL EXAM ED Triage Vitals Temp Heart Rate Resp BP 10/23/23225010/23/23211310/23/23211310/23/232113 36.6 C (97.8 F) 79 14 (!) 62/47 SpO2 Temp Source Heart Rate Source Patient Position 10/23/23211310/23/23225010/23/23211310/23/232240 90 % Oral Monitor Lying BP Location FiO2 (%) 10/23/23 2114 -- Right arm Physical Exam Vitals reviewed. Constitutional: General: She is not in acute distress. Appearance: She is ill-appearing. Comments: Somnolent but arousable HENT: Head: Normocephalic and atraumatic. Eyes: Extraocular Movements: Extraocular movements intact. Conjunctiva/sclera: Conjunctivae normal. Pupils: Pupils are equal, round, and reactive to light. Cardiovascular: Rate and Rhythm: Normal rate and regular rhythm. Pulses: Normal pulses. Heart sounds: Normal heart sounds. No murmur heard. Pulmonary: Effort: Pulmonary effort is normal. Breath sounds: Normal breath sounds. No wheezing, rhonchi or rales. Abdominal: General: There is no distension. Palpations: Abdomen is soft. Tenderness: There is no abdominal tenderness. There is no guarding or rebound. Musculoskeletal: General: No tenderness. Right lower leg: No edema. Left lower leg: No edema. Skin: General: Skin is warm. Capillary Refill: Capillary refill takes less than 2 seconds. Neurological: Mental Status: She is oriented to person, place, and time. Cranial Nerves: No cranial nerve deficit. Comments: Sensation intact in all 4 extremities. Strength 5 out of 5 in bilateral upper extremities. Does have decreased strength of lower extremities but is able to wiggle her toes. DIAGNOSTIC RESULTS RADIOLOGY (Per Emergency Physician): Interpretation per the Radiologist below, if available at the time of this note: CTA chest abdomen pelvis angiogram w and/or wo contrast Final Result Addendum (preliminary) of [facility] Name[facility] 1935 [id number] Exam Date/Time: 10/23/2023 22:29 Procedure: CT CHEST ABDOMEN PELVIS ANGIOGRAM W AND/OR WO CONTRAST Ordering Provider: AREVALO MICHAEL Reason For Exam: NSTEMI, concern for dissection vs ruptured aortic aneurysm --------ADDENDUM #1 -------- Follow-up thyroid ultrasound is recommended for incidental thyroid nodule that is equal to or greater than 1.5 cm in patients 35 years of age or older. Patients with comorbidities or limited life expectancy should not have further evaluation of the thyroid nodule, unless it is warranted clinically, or specifically requested by the patient or referring physician. Reference: Mile Skinner et al Managing incidental thyroid nodules detected on imaging: White paper of the ACR incidental thyroid findings committee" J Am Juju Radiol 2015;12:143-150. Report Dictated on Electronically Signed By: Aaron Manzo MD Electronically Signed Date/Time: 10/23/2023 11:17 PM EDT --------ORIGINAL REPORT -------- CLINICAL INFORMATION: Progressive chest and abdominal pain. Abdominal pain extending into the pelvis. Evaluate for aortic dissection. CTA CHEST: Images are first obtained prior to IV contrast. After 75 mL Isovue IV contrast, 1 mm axial cuts through the chest are obtained. 3D reconstructions are performed by me and reviewed simultaneously on the separate [employer] workstation. Sagittal and coronal reconstructions are also reviewed. Dose reduction was employed with automated exposure control. FINDINGS: A good contrast bolus is identified within the thoracic aorta. The ascending, arch, and descending thoracic aorta are normal in caliber without evidence of aneurysm or dissection. There are no filling defects to suggest pulmonary embolism. The pulmonary arteries are enlarged consistent with chronic pulmonary hypertension. The heart size is normal. There is no significant mediastinal lymphadenopathy. Mild emphysematous changes are noted diffusely. Atelectasis and mild infiltrates are noted in both lower lobes. No pleural effusions are seen. A 3.5 cm hypodense nodule is noted in the right lobe of thyroid. IMPRESSION: 1. No evidence of aortic aneurysm or dissection. 2. COPD with evidence of chronic pulmonary hypertension. 3. Mild bibasilar infiltrates. CTA ABDOMEN: 1 mm axial cuts are obtained from the dome of the liver through the iliac crests with 75 mL Isovue IV contrast. 3D images with coronal and sagittal planar images were reconstructed by me and reviewed simultaneously on the [employer] Workstation. Dose reduction was employed with automated exposure control. FINDINGS: The abdominal aorta is normal in caliber without evidence of aneurysmal dilatation or dissection. The celiac trunk and SMA origins are normal. Single renal arteries are identified bilaterally. There is no evidence of renal artery stenosis. The inferior mesenteric artery remains patent. The liver and spleen are normal. The pancreas and adrenal glands are within normal limits. Both kidneys are visualized in their cortical phase. There is no hydronephrosis or hydroureter. No free fluid is seen within the abdomen. IMPRESSION: 1. There is no evidence of aortic aneurysm or dissection. 2. The mesenteric and renal vessel origins are normal. CTA PELVIS: 1 mm axial cuts are obtained from the iliac crests through the symphysis pubis with 75 mL Isovue IV contrast. 3D images with coronal and sagittal planar images were reconstructed by wi and reviewed simultaneously on the [employer] Workstation. Dose reduction was employed with automated exposure control. FINDINGS: Mild atherosclerotic changes are present in the common iliac arteries bilaterally. However, this does not appear flow-limiting. The common femoral arteries are normal bilaterally. There is no evidence of bowel obstruction. The bladder is normal. No free fluid is seen within the pelvis. Sagittal reconstructed images of the spine demonstrate numerous chronic-appearing compression fractures (T11, L2, L4, and L5). Hip surgeries are noted bilaterally. IMPRESSION: 1. No evidence of aortic aneurysm or dissection. 2. COPD with evidence of chronic pulmonary hypertension. 3. Mild bibasilar infiltrates. 4. Numerous old thoracolumbar compression fractures. Report Dictated on Electronically Signed By: Aaron Manzo MD Electronically Signed Date/Time: 10/23/2023 10:51 PM EDT Final 1. No evidence of aortic aneurysm or dissection. 2. COPD with evidence of chronic pulmonary hypertension. 3. Mild bibasilar infiltrates. CTA ABDOMEN: 1 mm axial cuts are obtained from the dome of the liver through the iliac crests with 75 mL Isovue IV contrast. 3D images with coronal and sagittal planar images were reconstructed by wi and reviewed simultaneously on the [employer] Workstation. Dose reduction was employed with automated exposure control. FINDINGS: The abdominal aorta is normal in caliber without evidence of aneurysmal dilatation or dissection. The celiac trunk and SMA origins are normal. Single renal arteries are identified bilaterally. There is no evidence of renal artery stenosis. The inferior mesenteric artery remains patent. The liver and spleen are normal. The pancreas and adrenal glands are within normal limits. Both kidneys are visualized in their cortical phase. There is no hydronephrosis or hydroureter. No free fluid is seen within the abdomen. IMPRESSION: 1. There is no evidence of aortic aneurysm or dissection. 2. The mesenteric and renal vessel origins are normal. CTA PELVIS: 1 mm axial cuts are obtained from the iliac crests through the symphysis pubis with 75 mL Isovue IV contrast. 3D images with coronal and sagittal planar images were reconstructed by wi and reviewed simultaneously on the [employer] Workstation. Dose reduction was employed with automated exposure control. FINDINGS: Mild atherosclerotic changes are present in the common iliac arteries bilaterally. However, this does not appear flow-limiting. The common femoral arteries are normal bilaterally. There is no evidence of bowel obstruction. The bladder is normal. No free fluid is seen within the pelvis. Sagittal reconstructed images of the spine demonstrate numerous chronic-appearing compression fractures (T11, L2, L4, and L5). Hip surgeries are noted bilaterally. IMPRESSION: 1. No evidence of aortic aneurysm or dissection. 2. COPD with evidence of chronic pulmonary hypertension. 3. Mild bibasilar infiltrates. 4. Numerous old thoracolumbar compression fractures. Report Dictated on Electronically Signed By: Aaron Manzo MD Electronically Signed Date/Time: 10/23/2023 10:[address] head wo IV contrast Final Result 1. No acute intracranial findings. 2. Probable chronic ischemic and atrophic changes. 3. Sphenoid and bilateral mastoid sinus disease. Report Dictated on Electronically Signed By: Tutu Arroyo MD Electronically Signed Date/Time: 10/23/2023 10:43 PM EDT XR chest 1 view Final Result 1. Stable examination. No acute findings. Report Dictated on Electronically Signed By: Tutu Arroyo MD Electronically Signed Date/Time: 10/23/2023 9:47 PM EDT LABS: Labs Reviewed CBC WITH AUTO DIFFERENTIAL - Abnormal Result Value Auto WBC 8.7 RBC 3.83 Hemoglobin 11.4 (*) Hematocrit 34.5 (*) MCV 90.1 MCH 29.8 MCHC 33.0 RDW 14.6 Platelets 200 MPV 9.7 nRBC 0.0 Neutrophils Relative 69.9 Lymphocytes Relative 21.4 Monocytes Relative 8.0 Eosinophils Relative 0.0 Basophils Relative 0.1 Immature Grans % 0.6 Neutrophils Absolute 6.1 Lymphocytes Absolute 1.9 Monocytes Absolute 0.7 Eosinophils Absolute 0.0 Basophils Absolute 0.0 Immature Grans Absolute 0.1 (*) COMPREHENSIVE METABOLIC PANEL - Abnormal SODIUM 131 (*) POTASSIUM 3.9 CHLORIDE 100 CARBON DIOXIDE 21 (*) ANION GAP 10 UREA NITROGEN 31 (*) CREATININE 2.17 (*) GLUCOSE 125 (*) CALCIUM 9.0 AST (SGOT) 29 ALT 12 ALKALINE PHOSPHATASE 59 ALBUMIN 3.3 (*) BILIRUBIN, TOTAL 0.8 TOTAL PROTEIN 5.9 (*) eGFR 21.7 (*) TROPONIN, WITH SERIAL REFLEX - Abnormal TROPONIN I 0.993 (*) Narrative: Patients with high levels of Biotin oral intake (ie >5 mg/day) may have falsely decreased Troponin levels. NT PRO BNP - Abnormal NT PRO BNP 6,090 (*) APTT - Abnormal APTT 31.3 (*) Narrative: NOTE: The therapeutic time for Heparin anticoagulation, based on Xa activity inhibition, is an APTT of 46-80 seconds. LACTIC ACID WITH REFLEX - Normal LACTIC ACID 1.3 POCT GLUCOSE METER UNSOLICITED RESULTS - Normal Glucose 86 Narrative: Performed by: Rodrig[facility] Gilliam [facility], [address] [place], [place] [id number] CLIA ID: [id number] RESPIRATORY PATHOGENS PANEL BY PCR BLOOD CULTURE BLOOD CULTURE LEGIONELLA AND STREPTOCOCCUS URINE ANTIGEN COMPLETE URINALYSIS WITH REFLEX TO CULTURE Narrative: The following orders were created for panel order Complete Urinalysis with reflex to Culture. Procedure Abnormality Status --------- ------ Complete Urinalysis[[id number]] Please view results for these tests on the individual orders. COMPLETE URINALYSIS TROPONIN I TROPONIN I APTT APTT THYROID STIMULATING HORMONE PROCALCITONIN TEST COMPLETE URINALYSIS WITH REFLEX TO CULTURE Narrative: The following orders were created for panel order Complete Urinalysis with reflex to Culture. Procedure Abnormality Status --------- ------ Complete Urinalysis[[id number]] Please view results for these tests on the individual orders. COMPLETE URINALYSIS POCT GLUCOSE METER All other labs were within normal range or not returned as of this dictation. EMERGENCY DEPARTMENT COURSE and DIFFERENTIAL DIAGNOSIS/MDM: Vitals: Vitals: 10/23/23 2331 10/23/23 2338 10/23/23 2348 10/23/23 2355 BP: 108/54 103/54 114/60 104/52 BP Location: Right arm Patient Position: Pulse: Resp: Temp: TempSrc: SpO2: Weight: The patient presented with a chief complaint of altered mental status. The differential diagnosis associated with this patient's presentation includes hypoglycemia versus electrolyte abnormalities versus KUSUM versus UTI versus ACS versus heart failure. Our workup consisted of ordering/reviewing labs, imaging. Labs notable for hyponatremia, acute renal failure, chronic anemia, elevated BNP of 6090 as well as elevated troponin 0.993. Patient does meet criteria for NSTEMI. Given the persistent hypotension despite 1 L of fluid a lactate was obtained to evaluate for possible cardiogenic shock. This was normal. Patient continued to remain hypotensive and so a Levophed drip was started. She was given aspirin suppository as she is to sleepy and somnolent for oral aspirin. EKG and imaging as below. I did speak with Dr. Weir, shopping inspector who recommended admission to the ICU here at [facility] advised against transfer to [facility] CCU. Patient is a full code. Plan to admit to [place] ICU. Diagnoses as of 10/23/23 0806 NSTEMI (non-ST elevated myocardial infarction) (CMS/HCC) ([facility]) External records reviewed: Per retirement paperwork, patient is full code Diagnostics interpreted by me: EKG(s) EKG normal sinus rhythm with left axis deviation, normal intervals, old inferior infarct, no acute STEMI Xray(s) chest x-ray without focal consolidation concerning for pneumonia no pneumothorax or pleural effusion. Cardiomegaly is noted CT scan(s) CT head without contrast without acute intracranial bleed. CTA chest abdomen pelvis angiogram without evidence of aortic dissection or ruptured AAA Discussions with other clinicians: Admitting team Jarret Mejia, ICU DIANE and Taxi Truck Driver Dr. Weir, shopping inspector Chronic conditions impacting care: Hypertension, COPD, and Heart disease Social determinants of health affecting care: none ED Medications managed: Medications heparin injection 3,540 Units (has no administration in time range) heparin injection 1,770 Units (has no administration in time range) heparin 25,000 units in dextrose 5% 250mL infusion (premix) (12 Units/kg/hr 59 kg IntraVENous New Bag 10/23/23 2304) norepinephrine (Levophed) 4 mg in 0.9% sodium chloride 250 mL infusion (Cdh-Tgljwo-Weudy) (premix) (9 mcg/min IntraVENous Rate/Dose Change 10/24/23 0000) aspirin suppository 300 mg (has no administration in time range) heparin injection 3,540 Units (3,540 Units IntraVENous Given 10/23/23 2303) iopamidol (Isovue-370) 76 % injection 100 mL (75 mL IntraVENous Given 10/23/23 2229) Prescription drugs considered: None PROCEDURES: Unless otherwise noted below, none Procedures FINAL IMPRESSION 1. NSTEMI (non-ST elevated myocardial infarction) ([facility]/HCC) ([facility]) DISPOSITION Admit 10/23/2023 11:54:11 PM PATIENT REFERRED TO: No follow-up provider specified. DISCHARGE MEDICATIONS: New Prescriptions No medications on file (Comment: Please note this report has been produced using speech recognition software and may contain errors related to that system including errors in grammar, punctuation, and spelling, as well as words and phrases that may be inappropriate. If there are any questions or concerns please feel free to contact the dictating provider for clarification.) Shima Claros DO (electronically signed) Emergency Medicine Provider Shima Claros DO Resident 10/24/23 0004 Pt presents to ED via EMS from nursing facility c/o hypotension. Facility states that patient has been A&O x1 today and is usually A&O x4. Pt alert and oriented x4 upon arrival but had syncopal episode once moving to ED cot. Pt BP was 62/47. Pt is having episodes of consciousness and being A&O x4 but immediatly falling back to sleep. documented in this encounter [facility] 10-24-2023 History and physical note Images from the original note were not included. Internal Medicine: MICU Initial History and Physical Name: Adore Walter : 1935(88 y.o.) Date: 10/24/23 Attending: Dr. Tyrel Alonso Subjective: Chief Complaint: altered mental status, hypotension HPI: Mrs. Walter is an 88yoF with past medical history as listed below whom presents tonight to [facility] from [facility] with complaints of change in mentation and hypotension. According to staff, pt lives with at SNF and both are normally A&Ox3 at baseline. Full code status is desired by whom is next of kin reportedly. Workup in ER with routine labs and imaging. Labs significant for Na 131, Bicarb 21, BUN 31, SCr 2.17, Glucose 125, Trop 0.993, BNP 6090, lactic 1.3, H&H 11.4/34.5, WBC 8.7. EKG with SR, no ST abnls. CT head, c/a/p unremarkable. She presented hypotensive with SBP 62. She remained hypotensive despite LR bolus. She has been started on Levophed via periperhal line and that has been increased to 14mcg. On my arrival, pt is somnolent, when awakened, oriented to self only. She is warm and dry, not toxic appearing. Her HR is in the 40s on my arrival with SBP of 108 on 14mcg of Levo. I personally checked manual cuff pressure and confirmed. call or contact centre team leader shopping inspector was communicated with by ER provider whom recommended Heparin gtt and further monitoring. ICU was consulted for cardiogenic shock. Her lactic of 1 and being warm/dry does not support shock. Unclear if she is having intermittent rhythm changes with EKG and current tele supporting different rhythms. Also being bradycardic may indicate other pathologies. However, due to hypotension and use of vasopressors, will admit to MICU for further workup and diagnostics. Plan ECHO in AM. Heparin has been started for NSTEMI. History reviewed. No pertinent past medical history. Past Surgical History: Procedure Laterality Date HIP SURGERY Right HYSTERECTOMY KNEE SURGERY Bilateral LEG MUSCLE SURGERY (HISTORICAL) Left No family history on file. Social History Socioeconomic History Marital status: Spouse name: Not on file Number of children: Not on file Years of education: Not on file Highest education level: Not on file Occupational History Not on file Tobacco Use Smoking status: Former Packs/day: 0.50 Years: 35.00 Additional pack years: 0.00 Total pack years: 17.50 Types: Cigarettes Start date: 1956 Quit date: 1991 Years since quittin.2 Smokeless tobacco: Never Substance and Sexual Activity Alcohol use: Yes Comment: [facility] Drug use: Never Sexual activity: Not on file Other Topics Concern Not on file Social History Narrative Not on file Social Determinants of Health Financial Resource Strain: Low Risk (05/26/2022) Overall Financial Resource Strain (CARDIA) Difficulty of Paying Living Expenses: Not hard at all Food Insecurity: No Food Insecurity (05/26/2022) Hunger Vital Sign Worried About Running Out of Food in the Last Year: Never true Ran Out of Food in the Last Year: Never true Transportation Needs: Not on file Physical Activity: Not on file Stress: Not on file Social Connections: Not on file Intimate Partner Violence: Not on file Housing Stability: Not on file No Known Allergies Prior to Admission medications Medication Sig Start Date End Date Taking? Authorizing Provider acetaminophen (Tylenol) 500 MG tablet Take 500 mg by mouth every 6 hours as needed. Historical Provider, calcium carbonate (Tums) 500 MG chewable tablet Chew 500 mg daily. Historical Provider, carvedilol (Coreg) 12.5 MG tablet 11/30/22 Historical Provider, Docusate Sodium (DSS) 100 MG capsule Take 1 capsule by mouth 2 times daily. 09/29/21 Historical Provider, ergocalciferol (Vitamin D2) 1.25 MG (11275 UT) capsule 11/28/22 Historical Provider, ferrous sulfate 325 (65 Fe) MG tablet Take 325 mg by mouth daily (with breakfast). Historical Provider, gabapentin (Neurontin) 100 MG capsule 11/24/22 Historical Provider, Lidocaine 4 % patch Place 1 patch on the skin daily. 09/30/21 Historical Provider, lisinopril 5 MG tablet 11/30/22 Historical Provider, ondansetron ODT (Zofran-ODT) 4 MG disintegrating tablet Take 1 tablet by mouth every 8 hours as needed. 09/29/21 Historical Provider, simvastatin (Zocor) 10 MG tablet 11/26/22 Historical Provider, Objective: Oxygen Delivery: O2 Flow Rate (L/min): 6 L/min VITALS: BP 104/65 Pulse 63 Temp 36.6 C (97.8 F) (Oral) Resp 16 Wt 59 kg (130 lb) SpO2 91% BMI 24.56 kg/m CURRENT PULSE OXIMETRY: SpO2: 91 % Review of Systems Unable to obtain at time of exam due to mentation Constitutional: General Appearance [x]WDWN []Obese []Cachectic []Thin []Ill Eyes: Inspection of Pupils/Irises Pupils round and react: [x]Yes []No Sclera: []Icteric []Non-Icteric Inspection of Conjunctiva/Lids Conjunctiva: []Injected [x]Non-Injected Lids: [x]Intact []Lesion Present ENT/Mouth: External Inspection of ears/nose [x] Normal [] Scar/Lesion/Mass Inspection of teeth/lips/gums Dentition: [x][place] Teeth []Dentures Lips/Gums: [x]Intact []Lesion Present Mucosa: [][place] [x]Moist []Dry Neck: External Appearance Overall Appearance: [x]Normal []Lesion/Mass/Crepitus Present Trachea midline: [x]Yes []No Thyroid []Normal []Enlarged []Tender []Mass []Absent Respiratory: Respiratory effort []Labored [x]Non-Labored [] Mechanically-Ventilated Auscultation [x]Clear []Crackles []Wheezes []Rhonchi Cardiovascular: Auscultation Rate: []Regular [x]Irregular []Tachycardia [x]Bradycardia Rhythm: []Regular [x]Irregular Murmur: []Present [x]Absent Extremities Peripheral Edema: []Present [x]Absent Varicosities: []Present [x]Absent Gastrointestinal: Abdomen Palpation: [x]Soft []Firm []Tender [x]Non-Tender []Distended [x]Non-distended Mass: []Present []Absent Bowel Sounds: []Present []Absent Hernia: []Present []Absent Liver/Spleen: []Hepatosplenomegaly []Organomegaly Absent Musculoskeletal: Inspection of Digits and Nails Cyanosis: []Present [x]Absent Clubbing: []Present [x]Absent Ischemia: []Present [x]Absent Infection: []Present [x]Absent Extremities ZARAGOZA Equally: Except ([]RUE []RLE []LUE []LLE) Strength/Tone: Intact and Normal ([x]RUE [x]RLE [x]LUE [x]LLE) Skin: Inspection [x]Normal []Rash []Lesion []Ulcer Palpation [x]Warm []Cool [x]Dry []Clammy []Nodules []Induration []Skin-tightening Cap-Refill: [x] <3 sec [] >3 seconds (delayed) Neurologic: GCS EYE: 4 - Opens spontaneously GCS MOTOR: 6 - Obeys commands for movement GCS VERBAL: 4 - Confused Total GCS: 14 [x] Sensation grossly intact Psych: Mental Status Alert: [x]Yes [] No Oriented: []x0 []X1 []X2 [x]x3 Mood/Affect []Normal [x]Flat []Agitated []Depressed []Anxious []Calm []Sedated []NAD [facility] Labs within last 24 hours- BMP: Recent Labs 10/23/232125 NA 131* K 3.9 CL 100 CO2 21* BUN 31* CREATININE 2.17* CALCIUM 9.0 LFTs: Recent Labs 10/23/232125 AST 29 ALT 12 PROT 5.9* ALBUMIN 3.3* BILITOT 0.8 ALKPHOS 59 Glucose: Recent Labs 10/23/23212510/23/232128 GLUCOSE 125* -- POCGLU -- 86 Procal: No results for input(s): "PROCAL" in the last 72 hours. CBC: Recent Labs 10/23/232125 WBC 8.7 HGB 11.4* HCT 34.5* PLT 200 MCV 90.1 RDW 14.6 ABGs: No results for input(s): "PHART", "JIS9UGC", "PO2ART", "EFF0PJJ", "SO2ART", "C0GMMJQF" in the last 72 hours. Lactic Acid: Recent Labs 10/23/23 2244 LACTATE 1.3 INR: No results for input(s): "INR" in the last 72 hours. Cardiac Injury Profile: Recent Labs 10/23/23212510/24/23 0022 TROPONINI 0.993* 0.756* Labs in Last 3 months: Lab Results Component Value Date TSH 0.082 (L) 10/23/2023 INR 1.1 10/01/2021 Microbiology- Urine Cx: Lab Results Component Value Date URINECX No growth (<1,000 CFU/ml). 10/02/2021 Blood Cx: No results found for: BLOODCX Sputum Cx: No results found for: RESPCULT Gram Stain: No results found for: LABGRAM PNA PCR: No results found for: HUMANMETAPNE COVID19: Lab Results Component Value Date COVID19 Negative 10/06/2021 Legionella Ag: No results found for: "LEGIONELLAPN" Strep Ag: No results for input(s): "STREPPNEUMO" in the last 72 hours. Imaging- CT c/a/p with contrast 10/23/23 IMPRESSION: 1. No evidence of aortic aneurysm or dissection. 2. COPD with evidence of chronic pulmonary hypertension. 3. Mild bibasilar infiltrates. 4. Numerous old thoracolumbar compression fractures. IMPRESSION: 1. There is no evidence of aortic aneurysm or dissection. 2. The mesenteric and renal vessel origins are normal. CT head 10/23/23 IMPRESSION: 1. No acute intracranial findings. 2. Probable chronic ischemic and atrophic changes. 3. Sphenoid and bilateral mastoid sinus disease. SEP- CORE MEASURE DATA SIRS Criteria Sepsis Criteria Severe Sepsis Criteria Septic Shock Criteria Must meet 2: [] Temperature > 100.4 F (38 C) or < 96.8 F (36 C) [] HR > 90 [x] RR > 20 [] WBC > 12 or < 4 or 10% bands Must be confirmed or suspected to move forward with diagnosis of sepsis. [] Infection Confirmed or Suspected. [] No infection present. Patient does not meet criteria for Sepsis. Must meet 1: [] Lactate > 2 or [] Signs of Organ Dysfunction: - SBP < 90 or MAP < 65 - Altered mental status - Creatinine > 2 or increased from baseline - Urine Output < 0.5 ml/kg/hr - Bilirubin > 2 - INR > 1.5 - Platelets < 100,000 - Acute Respiratory Failure as evidenced by new need for NIPPV or mechanical ventilation [] No criteria met for Severe Sepsis. Must meet 1: [] Lactate = or > 4 or [] SBP < 90 or MAP < 65 for at least two readings in the first hour after fluid bolus administration [] No criteria met for Septic Shock. Patient Vitals from 10/23/23 2301 to 10/24/23 0000 BP 10/23/23 2306 (!) 64/33 10/23/23 2312 (!) 66/26 10/23/23 2321 (!) 80/39 10/23/23 2331 108/54 10/23/23 2338 103/54 10/23/23 2348 114/60 10/23/23 2355 104/52 Recent Labs 10/23/23 2126 10/23/23 2244 10/24/23 0306 10/24/23 0415 WBC 8.7 -- 8.5 -- LACTATE -- 1.3 -- 0.7 CREATININE 2.17* -- -- 1.97* BILITOT 0.8 -- -- 0.6 PLT 200 -- 214 -- Aaron Mejia APRN - JULES Assessment and Plan: Principal Problem: NSTEMI (non-ST elevated myocardial infarction) (CMS/HCC) (FORMERLY [facility]) Assessment: Shock: distributive/septic vs cardiogenic vs other NSTEMI- increased Troponin and BNP Mental status change; acute metabolic encephalopathy Hx of HFrEF (48% in 2020), HTN, HPL, thoracic aneurysm KUSUM Hx of iron def anemia Hx of OA/ neuropathy FEN Plan: Workup for septic shock- cultures/procal/broad antibx/steroid. Workup for cardogenic- ECHO, repeat Trop and EKG. Calculate chucky. Insert [place], central line. Check thyroid fx. Consult Cards. If Chucky supports cardiogenic shock, consider transfer to [facility] for CCU service Continue heparin infusion. Serial Troponin. Repeat EKG CT head negative. No focal deficit. Reportedly A&Ox3 at baseline. Multifactorial Presenting with KUSUM and shock- follow clinically. Continued workup in progress Repeat ECHO. Holding home meds. Follow SCr and UO trends. Consider nephrology consult if oliguric. H&H stable, follow trends, resume iron as able Continue gabapentin as able NPO for now, monitor lytes, bowel regimen. GI Prophylaxis: Pantoprazole IV DVT Prophylaxis: Full anticoagulation BMI Classification: Body mass index is 24.56 kg/m . Disposition: Remain in ICU Status Critical Care Time: 60m Total critical care time caring for this patient with life threatening, unstable organ failure, including direct patient contact, management of life support systems, review of data including imaging and labs, discussions with other team members and physicians, excluding procedures. Discussed plan of care with Dr[facility]24-[facility]23 History and physical note Images from the original note were not included. Internal Medicine: MICU Initial History and Physical Name: Adore Walter : 1935(88 y.o.) Date: 10/24/23 Attending: Dr. Tyrel Alonso Subjective: Chief Complaint: altered mental status, hypotension HPI: Mrs. Walter is an 88yoF with past medical history as listed below whom presents tonight to [facility] from [facility] with complaints of change in mentation and hypotension. According to staff, pt lives with at [facility] and both are normally A&Ox3 at baseline. Full code status is desired by whom is next of kin reportedly. Workup in ER with routine labs and imaging. Labs significant for Na 131, Bicarb 21, BUN 31, SCr 2.17, Glucose 125, Trop 0.993, BNP 6090, lactic 1.3, H&H 11.4/34.5, WBC 8.7. EKG with SR, no ST abnls. CT head, c/a/p unremarkable. She presented hypotensive with SBP 62. She remained hypotensive despite LR bolus. She has been started on Levophed via periperhal line and that has been increased to 14mcg. On my arrival, pt is somnolent, when awakened, oriented to self only. She is warm and dry, not toxic appearing. Her HR is in the 40s on my arrival with SBP of 108 on 14mcg of Levo. I personally checked manual cuff pressure and confirmed. call or contact centre team leader shopping inspector was communicated with by ER provider whom recommended Heparin gtt and further monitoring. ICU was consulted for cardiogenic shock. Her lactic of 1 and being warm/dry does not support shock. Unclear if she is having intermittent rhythm changes with EKG and current tele supporting different rhythms. Also being bradycardic may indicate other pathologies. However, due to hypotension and use of vasopressors, will admit to MICU for further workup and diagnostics. Plan ECHO in AM. Heparin has been started for NSTEMI. History reviewed. No pertinent past medical history. Past Surgical History: Procedure Laterality Date HIP SURGERY Right HYSTERECTOMY KNEE SURGERY Bilateral LEG MUSCLE SURGERY (HISTORICAL) Left No family history on file. Social History Socioeconomic History Marital status: Spouse name: Not on file Number of children: Not on file Years of education: Not on file Highest education level: Not on file Occupational History Not on file Tobacco Use Smoking status: Former Packs/day: 0.50 Years: 35.00 Additional pack years: 0.00 Total pack years: 17.50 Types: Cigarettes Start date: 1956 Quit date: 1991 Years since quittin.2 Smokeless tobacco: Never Substance and Sexual Activity Alcohol use: Yes Comment: obdulia bullard Drug use: Never Sexual activity: Not on file Other Topics Concern Not on file Social History Narrative Not on file Social Determinants of Health Financial Resource Strain: Low Risk (05/26/2022) Overall Financial Resource Strain (CARDIA) Difficulty of Paying Living Expenses: Not hard at all Food Insecurity: No Food Insecurity (05/26/2022) Hunger Vital Sign Worried About Running Out of Food in the Last Year: Never true Ran Out of Food in the Last Year: Never true Transportation Needs: Not on file Physical Activity: Not on file Stress: Not on file Social Connections: Not on file Intimate Partner Violence: Not on file Housing Stability: Not on file No Known Allergies Prior to Admission medications Medication Sig Start Date End Date Taking? Authorizing Provider acetaminophen (Tylenol) 500 MG tablet Take 500 mg by mouth every 6 hours as needed. Historical Provider, calcium carbonate (Tums) 500 MG chewable tablet Chew 500 mg daily. Historical Provider, carvedilol (Coreg) 12.5 MG tablet 11/30/22 Historical Provider, Docusate Sodium (DSS) 100 MG capsule Take 1 capsule by mouth 2 times daily. 09/29/21 Historical Provider, ergocalciferol (Vitamin D2) 1.25 MG (24833 UT) capsule 11/28/22 Historical Provider, ferrous sulfate 325 (65 Fe) MG tablet Take 325 mg by mouth daily (with breakfast). Historical Provider, gabapentin (Neurontin) 100 MG capsule 11/24/22 Historical Provider, Lidocaine 4 % patch Place 1 patch on the skin daily. 09/30/21 Historical Provider, lisinopril 5 MG tablet 11/30/22 Historical Provider, ondansetron ODT (Zofran-ODT) 4 MG disintegrating tablet Take 1 tablet by mouth every 8 hours as needed. 09/29/21 Historical Provider, simvastatin (Zocor) 10 MG tablet 11/26/22 Historical Provider, Objective: Oxygen Delivery: O2 Flow Rate (L/min): 6 L/min VITALS: BP 104/65 Pulse 63 Temp 36.6 C (97.8 F) (Oral) Resp 16 Wt 59 kg (130 lb) SpO2 91% BMI 24.56 kg/m CURRENT PULSE OXIMETRY: SpO2: 91 % Review of Systems Unable to obtain at time of exam due to mentation Constitutional: General Appearance [x]WDWN []Obese []Cachectic []Thin []Ill Eyes: Inspection of Pupils/Irises Pupils round and react: [x]Yes []No Sclera: []Icteric []Non-Icteric Inspection of Conjunctiva/Lids Conjunctiva: []Injected [x]Non-Injected Lids: [x]Intact []Lesion Present ENT/Mouth: External Inspection of ears/nose [x] Normal [] Scar/Lesion/Mass Inspection of teeth/lips/gums Dentition: [x][place] Teeth []Dentures Lips/Gums: [x]Intact []Lesion Present Mucosa: [][place] [x]Moist []Dry Neck: External Appearance Overall Appearance: [x]Normal []Lesion/Mass/Crepitus Present Trachea midline: [x]Yes []No Thyroid []Normal []Enlarged []Tender []Mass []Absent Respiratory: Respiratory effort []Labored [x]Non-Labored [] Mechanically-Ventilated Auscultation [x]Clear []Crackles []Wheezes []Rhonchi Cardiovascular: Auscultation Rate: []Regular [x]Irregular []Tachycardia [x]Bradycardia Rhythm: []Regular [x]Irregular Murmur: []Present [x]Absent Extremities Peripheral Edema: []Present [x]Absent Varicosities: []Present [x]Absent Gastrointestinal: Abdomen Palpation: [x]Soft []Firm []Tender [x]Non-Tender []Distended [x]Non-distended Mass: []Present []Absent Bowel Sounds: []Present []Absent Hernia: []Present []Absent Liver/Spleen: []Hepatosplenomegaly []Organomegaly Absent Musculoskeletal: Inspection of Digits and Nails Cyanosis: []Present [x]Absent Clubbing: []Present [x]Absent Ischemia: []Present [x]Absent Infection: []Present [x]Absent Extremities ZARAGOZA Equally: Except ([]RUE []RLE []LUE []LLE) Strength/Tone: Intact and Normal ([x]RUE [x]RLE [x]LUE [x]LLE) Skin: Inspection [x]Normal []Rash []Lesion []Ulcer Palpation [x]Warm []Cool [x]Dry []Clammy []Nodules []Induration []Skin-tightening Cap-Refill: [x] <3 sec [] >3 seconds (delayed) Neurologic: GCS EYE: 4 - Opens spontaneously GCS MOTOR: 6 - Obeys commands for movement GCS VERBAL: 4 - Confused Total GCS: 14 [x] Sensation grossly intact Psych: Mental Status Alert: [x]Yes [] No Oriented: []x0 []X1 []X2 [x]x3 Mood/Affect []Normal [x]Flat []Agitated []Depressed []Anxious []Calm []Sedated []NAD [facility] Labs within last 24 hours- BMP: Recent Labs 10/23/232125 NA 131* K 3.9 CL 100 CO2 21* BUN 31* CREATININE 2.17* CALCIUM 9.0 LFTs: Recent Labs 10/23/232125 AST 29 ALT 12 PROT 5.9* ALBUMIN 3.3* BILITOT 0.8 ALKPHOS 59 Glucose: Recent Labs 10/23/23212510/23/232128 GLUCOSE 125* -- POCGLU -- 86 Procal: No results for input(s): "PROCAL" in the last 72 hours. CBC: Recent Labs 10/23/232125 WBC 8.7 HGB 11.4* HCT 34.5* PLT 200 MCV 90.1 RDW 14.6 ABGs: No results for input(s): "PHART", "HMR5QLH", "PO2ART", "FOO2KJC", "SO2ART", "A9OBWXOO" in the last 72 hours. Lactic Acid: Recent Labs 10/23/23 2244 LACTATE 1.3 INR: No results for input(s): "INR" in the last 72 hours. Cardiac Injury Profile: Recent Labs 10/23/23212510/24/23 0022 TROPONINI 0.993* 0.756* Labs in Last 3 months: Lab Results Component Value Date TSH 0.082 (L) 10/23/2023 INR 1.1 10/01/2021 Microbiology- Urine Cx: Lab Results Component Value Date URINECX No growth (<1,000 CFU/ml). 10/02/2021 Blood Cx: No results found for: BLOODCX Sputum Cx: No results found for: RESPCULT Gram Stain: No results found for: LABGRAM PNA PCR: No results found for: HUMANMETAPNE COVID19: Lab Results Component Value Date COVID19 Negative 10/06/2021 Legionella Ag: No results found for: "LEGIONELLAPN" Strep Ag: No results for input(s): "STREPPNEUMO" in the last 72 hours. Imaging- CT c/a/p with contrast 10/23/23 IMPRESSION: 1. No evidence of aortic aneurysm or dissection. 2. COPD with evidence of chronic pulmonary hypertension. 3. Mild bibasilar infiltrates. 4. Numerous old thoracolumbar compression fractures. IMPRESSION: 1. There is no evidence of aortic aneurysm or dissection. 2. The mesenteric and renal vessel origins are normal. CT head 10/23/23 IMPRESSION: 1. No acute intracranial findings. 2. Probable chronic ischemic and atrophic changes. 3. Sphenoid and bilateral mastoid sinus disease. SEP- CORE MEASURE DATA SIRS Criteria Sepsis Criteria Severe Sepsis Criteria Septic Shock Criteria Must meet 2: [] Temperature > 100.4 F (38 C) or < 96.8 F (36 C) [] HR > 90 [x] RR > 20 [] WBC > 12 or < 4 or 10% bands Must be confirmed or suspected to move forward with diagnosis of sepsis. [] Infection Confirmed or Suspected. [] No infection present. Patient does not meet criteria for Sepsis. Must meet 1: [] Lactate > 2 or [] Signs of Organ Dysfunction: - SBP < 90 or MAP < 65 - Altered mental status - Creatinine > 2 or increased from baseline - Urine Output < 0.5 ml/kg/hr - Bilirubin > 2 - INR > 1.5 - Platelets < 100,000 - Acute Respiratory Failure as evidenced by new need for NIPPV or mechanical ventilation [] No criteria met for Severe Sepsis. Must meet 1: [] Lactate = or > 4 or [] SBP < 90 or MAP < 65 for at least two readings in the first hour after fluid bolus administration [] No criteria met for Septic Shock. Patient Vitals from 10/23/23 2301 to 10/24/23 0000 BP 10/23/23 2306 (!) 64/33 10/23/23 2312 (!) 66/26 10/23/23 2321 (!) 80/39 10/23/23 2331 108/54 10/23/23 2338 103/54 10/23/23 2348 114/60 10/23/23 2355 104/52 Recent Labs 10/23/23 2126 10/23/23 2244 10/24/23 0306 10/24/23 0415 WBC 8.7 -- 8.5 -- LACTATE -- 1.3 -- 0.7 CREATININE 2.17* -- -- 1.97* BILITOT 0.8 -- -- 0.6 PLT 200 -- 214 -- Aaron Mejia, ADARSH - EXECUTIVE CHAIRMAN Assessment and Plan: Principal Problem: NSTEMI (non-ST elevated myocardial infarction) (CMS/HCC) ([facility]ERLY [facility]) Assessment: Shock: distributive/septic vs cardiogenic vs other NSTEMI- increased Troponin and BNP Mental status change; acute metabolic encephalopathy Hx of HFrEF (48% in 2020), HTN, HPL, thoracic aneurysm KUSUM Hx of iron def anemia Hx of OA/ neuropathy FEN Plan: Workup for septic shock- cultures/procal/broad antibx/steroid. Workup for cardogenic- ECHO, repeat Trop and EKG. Calculate chucky. Insert [place], central line. Check thyroid fx. Consult Cards. If Chucky supports cardiogenic shock, consider transfer to [facility] for CCU service Continue heparin infusion. Serial Troponin. Repeat EKG CT head negative. No focal deficit. Reportedly A&Ox3 at baseline. Multifactorial Presenting with KUSUM and shock- follow clinically. Continued workup in progress Repeat ECHO. Holding home meds. Follow SCr and UO trends. Consider nephrology consult if oliguric. H&H stable, follow trends, resume iron as able Continue gabapentin as able NPO for now, monitor lytes, bowel regimen. GI Prophylaxis: Pantoprazole IV DVT Prophylaxis: Full anticoagulation BMI Classification: Body mass index is 24.56 kg/m . Disposition: Remain in ICU Status Critical Care Time: 60m Total critical care time caring for this patient with life threatening, unstable organ failure, including direct patient contact, management of life support systems, review of data including imaging and labs, discussions with other team members and physicians, excluding procedures. Discussed plan of care with Dr. Tyrel Carmichael documented in this encounter [facility] 10-23-2023 Emergency department Note ICU Provider in with patient at this time. Jane Nunes RN 10/23/232326 [facility] 10-23-2023 Emergency department Triage note Pt presents to ED via EMS from nursing facility c/o hypotension. Facility states that patient has been A&O x1 today and is usually A&O x4. Pt alert and oriented x4 upon arrival but had syncopal episode once moving to ED cot. Pt BP was 62/47. Pt is having episodes of consciousness and being A&O x4 but immediatly falling back to sleep. [facility] 10-23-2023 Physician Emergency department Note Emergency Department Encounter [facility] ED Patient: Adore Walter : 1935 Date of Evaluation: 10/23/2023 ED Supervising Physician: NOHEMI AREVALO MD I independently examined and evaluated Adore Walter. This will serve as my Supervisory note and shared attestation. I did perform a substantive portion of the visit including all aspects of the Medical Decision Making. I wore appropriate PPE for the entirety of this encounter. History: In brief, Adore Walter is a 88 y.o. female that presents to the emergency department from an [facility] with a complaint of altered mental status. EMS was called. They noted that she had hypotension. They brought her to the emergency department with that as their concern. The patient herself states that she feels tired. She has a history of COPD. Focused exam: On examination the patient is an older female found lying on a cart. Her automated blood pressure is 62/47. The chest is clear. Normal cardiac exam. Abdomen is soft and is nontender. Bowel sounds are normal active. Differential Diagnosis: Differential diagnosis includes acute coronary syndrome, metabolic abnormality, dehydration. Diagnostic testing undertaken, as well as those tests considered but not ordered: An EKG will be obtained along with laboratory work. A manual blood pressure will be obtained. ED testing and evaluation will be obtained to help differentiate these diagnostic possibilities and determine the most likely cause. Brief ED course/MDM: The patient's blood pressure has been persistently low. We are awaiting blood work results. Disposition will be based on results of diagnostic testing and reassessment. EKG interpretation: An EKG is obtained. It demonstrates a normal sinus rhythm with a rate of 77. QRS axis is -42. No acute ST segment findings are found. There is no evidence of an ST elevation VA. CRITICAL CARE TIME Total Critical Care time was 30 minutes, excluding separately reportable procedures. There was a high probability of clinically significant/life threatening deterioration in the patient's condition which required my urgent intervention. The patient's differential diagnosis included acute coronary syndrome, cardiac strain, metabolic abnormality, dehydration. The patient's troponin returned elevated. This may represent an NSTEMI. The critical care time was spent in initially evaluating the patient, discussing the patient's care with family, reviewing previous records, developing a diagnostic plan, reviewing and integrating test results into the patient's recommended treatment plan, as well as interacting with physicians who will be managing the patient after the emergency department. Sources of History: I evaluated other historical sources including previous outpatient records and admission records. Patient is aware of care plan. All diagnostic, treatment, and disposition decisions were made by myself in conjunction with the Resident. I also supervised kang portions of any procedures performed by the Resident. For all further details of the patient's emergency department visit, please see their documentation. (Comment: Please note this report has been produced using speech recognition software and may contain errors related to that system including errors in grammar, punctuation, and spelling, as well as words and phrases that may be inappropriate. If there are any questions or concerns please feel free to contact the dictating provider for clarification.) NOHEMI AREVALO MD [employer] Nohemi Arevalo MD 10/23/232142 Nohemi Arevalo MD 10/23/232200 [facility] [employer] Phone: 10-23-2023 Physician Emergency department Note EMERGENCY DEPARTMENT ENCOUNTER Pt Name: Adore Walter Birthdate 1935 Date of evaluation: 10/23/2023 ED Provider: Shima Claros DO CHIEF COMPLAINT Chief Complaint Patient presents with Altered Mental Status HISTORY OF PRESENT ILLNESS (Location/Symptom, Timing/Onset, Context/Setting, Quality, Duration, Modifying Factors, Severity) Note limiting factors. I wore appropriate PPE for the entirety of this encounter. HPI Adore Walter is a 88 y.o. who presents to the emergency department with altered mental status. EMS noted that she was hypotensive at the facility where she resides. EMS was called and they noted that she was normotensive and even hypertensive for them. When they arrived here, she became hypotensive and slumped over in the cot. Patient only complaining of left shoulder pain that she says has been there for weeks. Has no pain anywhere else. Patient states that she feels tired and sleepy. She does have a history of COPD and heart failure. Nursing Notes were reviewed. Limitations to history: None Outside historians: EMS REVIEW OF SYSTEMS Review of Systems Pertinent positives and negatives as per HPI. PAST MEDICAL HISTORY History reviewed. No pertinent past medical history. SURGICAL HISTORY Past Surgical History: Procedure Laterality Date HIP SURGERY Right HYSTERECTOMY KNEE SURGERY Bilateral LEG MUSCLE SURGERY (HISTORICAL) Left CURRENT MEDICATIONS Previous Medications ACETAMINOPHEN (TYLENOL) 500 MG TABLET Take 500 mg by mouth every 6 hours as needed. CALCIUM CARBONATE (TUMS) 500 MG CHEWABLE TABLET Chew 500 mg daily. CARVEDILOL (COREG) 12.5 MG TABLET DOCUSATE SODIUM (DSS) 100 MG CAPSULE Take 1 capsule by mouth 2 times daily. ERGOCALCIFEROL (VITAMIN D2) 1.25 MG (87007 UT) CAPSULE FERROUS SULFATE 325 (65 FE) MG TABLET Take 325 mg by mouth daily (with breakfast). GABAPENTIN (NEURONTIN) 100 MG CAPSULE LIDOCAINE 4 % PATCH Place 1 patch on the skin daily. LISINOPRIL 5 MG TABLET ONDANSETRON ODT (ZOFRAN-ODT) 4 MG DISINTEGRATING TABLET Take 1 tablet by mouth every 8 hours as needed. SIMVASTATIN (ZOCOR) 10 MG TABLET ALLERGIES Patient has no known allergies. FAMILY HISTORY No family history on file. SOCIAL HISTORY Social History Socioeconomic History Marital status: Tobacco Use Smoking status: Former Packs/day: 0.50 Years: 35.00 Additional pack years: 0.00 Total pack years: 17.50 Types: Cigarettes Start date: 1956 Quit date: 1991 Years since quittin.2 Smokeless tobacco: Never Substance and Sexual Activity Alcohol use: Yes [facility] Drug use: Never Social Determinants of Health Financial Resource Strain: Low Risk (05/26/2022) Overall Financial Resource Strain (CARDIA) Difficulty of Paying Living Expenses: Not hard at all Food Insecurity: No Food Insecurity (05/26/2022) Hunger Vital Sign Worried About Running Out of Food in the Last Year: Never true Ran Out of Food in the Last Year: Never true SCREENINGS [place] Coma Scale Best Eye Response: Spontaneous Best Verbal Response: Oriented Best Motor Response: Follows commands [place] Coma Scale Score: 15 PHYSICAL EXAM ED Triage Vitals Temp Heart Rate Resp BP 10/23/23225010/23/23211310/23/23211310/23/232113 36.6 C (97.8 F) 79 14 (!) 62/47 SpO2 Temp Source Heart Rate Source Patient Position 10/23/23211310/23/23225010/23/23211310/23/232240 90 % Oral Monitor Lying BP Location FiO2 (%) 10/23/232113 -- Right arm Physical Exam Vitals reviewed. Constitutional: General: She is not in acute distress. Appearance: She is ill-appearing. Comments: Somnolent but arousable HENT: Head: Normocephalic and atraumatic. Eyes: Extraocular Movements: Extraocular movements intact. Conjunctiva/sclera: Conjunctivae normal. Pupils: Pupils are equal, round, and reactive to light. Cardiovascular: Rate and Rhythm: Normal rate and regular rhythm. Pulses: Normal pulses. Heart sounds: Normal heart sounds. No murmur heard. Pulmonary: Effort: Pulmonary effort is normal. Breath sounds: Normal breath sounds. No wheezing, rhonchi or rales. Abdominal: General: There is no distension. Palpations: Abdomen is soft. Tenderness: There is no abdominal tenderness. There is no guarding or rebound. Musculoskeletal: General: No tenderness. Right lower leg: No edema. Left lower leg: No edema. Skin: General: Skin is warm. Capillary Refill: Capillary refill takes less than 2 seconds. Neurological: Mental Status: She is oriented to person, place, and time. Cranial Nerves: No cranial nerve deficit. Comments: Sensation intact in all 4 extremities. Strength 5 out of 5 in bilateral upper extremities. Does have decreased strength of lower extremities but is able to wiggle her toes. DIAGNOSTIC RESULTS RADIOLOGY (Per Emergency Physician): Interpretation per the Radiologist below, if available at the time of this note: CTA chest abdomen pelvis angiogram w and/or wo contrast Final Result Addendum (preliminary) 1 of [facility] 1935 [id number] Exam Date/Time: 10/23/2023 22:29 Procedure: CT CHEST ABDOMEN PELVIS ANGIOGRAM W AND/OR WO CONTRAST Ordering Provider: AREVALO MICHAEL Reason For Exam: NSTEMI, concern for dissection vs ruptured aortic aneurysm --------ADDENDUM #1 -------- Follow-up thyroid ultrasound is recommended for incidental thyroid nodule that is equal to or greater than 1.5 cm in patients 35 years of age or older. Patients with comorbidities or limited life expectancy should not have further evaluation of the thyroid nodule, unless it is warranted clinically, or specifically requested by the patient or referring physician. Reference: Mile Skinner et al Managing incidental thyroid nodules detected on imaging: White paper of the ACR incidental thyroid findings committee" J Am Juju Radiol 2015;12:143-150. Report Dictated on Electronically Signed By: Aaron Manzo MD Electronically Signed Date/Time: 10/23/2023 11:17 PM EDT --------ORIGINAL REPORT -------- CLINICAL INFORMATION: Progressive chest and abdominal pain. Abdominal pain extending into the pelvis. Evaluate for aortic dissection. CTA CHEST: Images are first obtained prior to IV contrast. After 75 mL Isovue IV contrast, 1 mm axial cuts through the chest are obtained. 3D reconstructions are performed by me and reviewed simultaneously on the separate [employer] workstation. Sagittal and coronal reconstructions are also reviewed. Dose reduction was employed with automated exposure control. FINDINGS: A good contrast bolus is identified within the thoracic aorta. The ascending, arch, and descending thoracic aorta are normal in caliber without evidence of aneurysm or dissection. There are no filling defects to suggest pulmonary embolism. The pulmonary arteries are enlarged consistent with chronic pulmonary hypertension. The heart size is normal. There is no significant mediastinal lymphadenopathy. Mild emphysematous changes are noted diffusely. Atelectasis and mild infiltrates are noted in both lower lobes. No pleural effusions are seen. A 3.5 cm hypodense nodule is noted in the right lobe of thyroid. IMPRESSION: 1. No evidence of aortic aneurysm or dissection. 2. COPD with evidence of chronic pulmonary hypertension. 3. Mild bibasilar infiltrates. CTA ABDOMEN: 1 mm axial cuts are obtained from the dome of the liver through the iliac crests with 75 mL Isovue IV contrast. 3D images with coronal and sagittal planar images were reconstructed by me and reviewed simultaneously on the [employer] Workstation. Dose reduction was employed with automated exposure control. FINDINGS: The abdominal aorta is normal in caliber without evidence of aneurysmal dilatation or dissection. The celiac trunk and SMA origins are normal. Single renal arteries are identified bilaterally. There is no evidence of renal artery stenosis. The inferior mesenteric artery remains patent. The liver and spleen are normal. The pancreas and adrenal glands are within normal limits. Both kidneys are visualized in their cortical phase. There is no hydronephrosis or hydroureter. No free fluid is seen within the abdomen. IMPRESSION: 1. There is no evidence of aortic aneurysm or dissection. 2. The mesenteric and renal vessel origins are normal. CTA PELVIS: 1 mm axial cuts are obtained from the iliac crests through the symphysis pubis with 75 mL Isovue IV contrast. 3D images with coronal and sagittal planar images were reconstructed by wi and reviewed simultaneously on the [employer] Workstation. Dose reduction was employed with automated exposure control. FINDINGS: Mild atherosclerotic changes are present in the common iliac arteries bilaterally. However, this does not appear flow-limiting. The common femoral arteries are normal bilaterally. There is no evidence of bowel obstruction. The bladder is normal. No free fluid is seen within the pelvis. Sagittal reconstructed images of the spine demonstrate numerous chronic-appearing compression fractures (T11, L2, L4, and L5). Hip surgeries are noted bilaterally. IMPRESSION: 1. No evidence of aortic aneurysm or dissection. 2. COPD with evidence of chronic pulmonary hypertension. 3. Mild bibasilar infiltrates. 4. Numerous old thoracolumbar compression fractures. Report Dictated on Electronically Signed By: Aaron Manzo MD Electronically Signed Date/Time: 10/23/2023 10:51 PM EDT Final 1. No evidence of aortic aneurysm or dissection. 2. COPD with evidence of chronic pulmonary hypertension. 3. Mild bibasilar infiltrates. CTA ABDOMEN: 1 mm axial cuts are obtained from the dome of the liver through the iliac crests with 75 mL Isovue IV contrast. 3D images with coronal and sagittal planar images were reconstructed by me and reviewed simultaneously on the [employer] Workstation. Dose reduction was employed with automated exposure control. FINDINGS: The abdominal aorta is normal in caliber without evidence of aneurysmal dilatation or dissection. The celiac trunk and SMA origins are normal. Single renal arteries are identified bilaterally. There is no evidence of renal artery stenosis. The inferior mesenteric artery remains patent. The liver and spleen are normal. The pancreas and adrenal glands are within normal limits. Both kidneys are visualized in their cortical phase. There is no hydronephrosis or hydroureter. No free fluid is seen within the abdomen. IMPRESSION: 1. There is no evidence of aortic aneurysm or dissection. 2. The mesenteric and renal vessel origins are normal. CTA PELVIS: 1 mm axial cuts are obtained from the iliac crests through the symphysis pubis with 75 mL Isovue IV contrast. 3D images with coronal and sagittal planar images were reconstructed by me and reviewed simultaneously on the [employer] Workstation. Dose reduction was employed with automated exposure control. FINDINGS: Mild atherosclerotic changes are present in the common iliac arteries bilaterally. However, this does not appear flow-limiting. The common femoral arteries are normal bilaterally. There is no evidence of bowel obstruction. The bladder is normal. No free fluid is seen within the pelvis. Sagittal reconstructed images of the spine demonstrate numerous chronic-appearing compression fractures (T11, L2, L4, and L5). Hip surgeries are noted bilaterally. IMPRESSION: 1. No evidence of aortic aneurysm or dissection. 2. COPD with evidence of chronic pulmonary hypertension. 3. Mild bibasilar infiltrates. 4. Numerous old thoracolumbar compression fractures. Report Dictated on Electronically Signed By: Aaron Manzo MD Electronically Signed Date/Time: 10/23/2023 10:[address] head wo IV contrast Final Result 1. No acute intracranial findings. 2. Probable chronic ischemic and atrophic changes. 3. Sphenoid and bilateral mastoid sinus disease. Report Dictated on Electronically Signed By: Tutu Arroyo MD Electronically Signed Date/Time: 10/23/2023 10:43 PM EDT XR chest 1 view Final Result 1. Stable examination. No acute findings. Report Dictated on Electronically Signed By: Tutu Arroyo MD Electronically Signed Date/Time: 10/23/2023 9:47 PM EDT LABS: Labs Reviewed CBC WITH AUTO DIFFERENTIAL - Abnormal Result Value Auto WBC 8.7 RBC 3.83 Hemoglobin 11.4 (*) Hematocrit 34.5 (*) MCV 90.1 MCH 29.8 MCHC 33.0 RDW 14.6 Platelets 200 MPV 9.7 nRBC 0.0 Neutrophils Relative 69.9 Lymphocytes Relative 21.4 Monocytes Relative 8.0 Eosinophils Relative 0.0 Basophils Relative 0.1 Immature Grans % 0.6 Neutrophils Absolute 6.1 Lymphocytes Absolute 1.9 Monocytes Absolute 0.7 Eosinophils Absolute 0.0 Basophils Absolute 0.0 Immature Grans Absolute 0.1 (*) COMPREHENSIVE METABOLIC PANEL - Abnormal SODIUM 131 (*) POTASSIUM 3.9 CHLORIDE 100 CARBON DIOXIDE 21 (*) ANION GAP 10 UREA NITROGEN 31 (*) CREATININE 2.17 (*) GLUCOSE 125 (*) CALCIUM 9.0 AST (SGOT) 29 ALT 12 ALKALINE PHOSPHATASE 59 ALBUMIN 3.3 (*) BILIRUBIN, TOTAL 0.8 TOTAL PROTEIN 5.9 (*) eGFR 21.7 (*) TROPONIN, WITH SERIAL REFLEX - Abnormal TROPONIN I 0.993 (*) Narrative: Patients with high levels of Biotin oral intake (ie >5 mg/day) may have falsely decreased Troponin levels. NT PRO BNP - Abnormal NT PRO BNP 6,090 (*) APTT - Abnormal APTT 31.3 (*) Narrative: NOTE: The therapeutic time for Heparin anticoagulation, based on Xa activity inhibition, is an APTT of 46-80 seconds. LACTIC ACID WITH REFLEX - Normal LACTIC ACID 1.3 POCT GLUCOSE METER UNSOLICITED RESULTS - Normal Glucose 86 Narrative: Performed by: [facility], [address] [place] [id number] CLIA ID: [id number] RESPIRATORY PATHOGENS PANEL BY PCR BLOOD CULTURE BLOOD CULTURE LEGIONELLA AND STREPTOCOCCUS URINE ANTIGEN COMPLETE URINALYSIS WITH REFLEX TO CULTURE Narrative: The following orders were created for panel order Complete Urinalysis with reflex to Culture. Procedure Abnormality Status --------- ------ Complete Urinalysis[[id number]] Please view results for these tests on the individual orders. COMPLETE URINALYSIS TROPONIN I TROPONIN I APTT APTT THYROID STIMULATING HORMONE PROCALCITONIN TEST COMPLETE URINALYSIS WITH REFLEX TO CULTURE Narrative: The following orders were created for panel order Complete Urinalysis with reflex to Culture. Procedure Abnormality Status --------- ------ Complete Urinalysis[[id number]] Please view results for these tests on the individual orders. COMPLETE URINALYSIS POCT GLUCOSE METER All other labs were within normal range or not returned as of this dictation. EMERGENCY DEPARTMENT COURSE and DIFFERENTIAL DIAGNOSIS/MDM: Vitals: Vitals: 10/23/23 2331 10/23/23 2338 10/23/23 2348 10/23/23 2355 BP: 108/54 103/54 114/60 104/52 BP Location: Right arm Patient Position: Pulse: Resp: Temp: TempSrc: SpO2: Weight: The patient presented with a chief complaint of altered mental status. The differential diagnosis associated with this patient's presentation includes hypoglycemia versus electrolyte abnormalities versus KUSUM versus UTI versus ACS versus heart failure. Our workup consisted of ordering/reviewing labs, imaging. Labs notable for hyponatremia, acute renal failure, chronic anemia, elevated BNP of 6090 as well as elevated troponin 0.993. Patient does meet criteria for NSTEMI. Given the persistent hypotension despite 1 L of fluid a lactate was obtained to evaluate for possible cardiogenic shock. This was normal. Patient continued to remain hypotensive and so a Levophed drip was started. She was given aspirin suppository as she is to sleepy and somnolent for oral aspirin. EKG and imaging as below. I did speak with Dr. Weir, shopping inspector who recommended admission to the ICU here at [facility] advised against transfer to [facility] CCU. Patient is a full code. Plan to admit to [place] ICU. Diagnoses as of 10/23/23 2356 NSTEMI (non-ST elevated myocardial infarction) (CMS/HCC) (FORMERLY [facility]) External records reviewed: Per retirement paperwork, patient is full code Diagnostics interpreted by me: EKG(s) EKG normal sinus rhythm with left axis deviation, normal intervals, old inferior infarct, no acute STEMI Xray(s) chest x-ray without focal consolidation concerning for pneumonia no pneumothorax or pleural effusion. Cardiomegaly is noted CT scan(s) CT head without contrast without acute intracranial bleed. CTA chest abdomen pelvis angiogram without evidence of aortic dissection or ruptured AAA Discussions with other clinicians: Admitting team Jarret Mejia, ICU DIANE and Taxi Truck Driver Dr. Weir, shopping inspector Chronic conditions impacting care: Hypertension, COPD, and Heart disease Social determinants of health affecting care: none ED Medications managed: Medications heparin injection 3,540 Units (has no administration in time range) heparin injection 1,770 Units (has no administration in time range) heparin 25,000 units in dextrose 5% 250mL infusion (premix) (12 Units/kg/hr 59 kg IntraVENous New Bag 10/23/23 2304) norepinephrine (Levophed) 4 mg in 0.9% sodium chloride 250 mL infusion (Iem-Yrosri-Kwsuq) (premix) (9 mcg/min IntraVENous Rate/Dose Change 10/24/23 0000) aspirin suppository 300 mg (has no administration in time range) heparin injection 3,540 Units (3,540 Units IntraVENous Given 10/23/23 2303) iopamidol (Isovue-370) 76 % injection 100 mL (75 mL IntraVENous Given 10/23/23 2229) Prescription drugs considered: None PROCEDURES: Unless otherwise noted below, none Procedures FINAL IMPRESSION 1. NSTEMI (non-ST elevated myocardial infarction) (CMS/HCC) ([facility]) DISPOSITION Admit 10/23/2023 11:54:11 PM PATIENT REFERRED TO: No follow-up provider specified. DISCHARGE MEDICATIONS: New Prescriptions No medications on file (Comment: Please note this report has been produced using speech recognition software and may contain errors related to that system including errors in grammar, punctuation, and spelling, as well as words and phrases that may be inappropriate. If there are any questions or concerns please feel free to contact the dictating provider for clarification.) Shima Claros DO (electronically signed) Emergency Medicine Provider Shima Claros DO Resident 10/24/23 0004 [place] Phone: 10-06-2021 Note Hospitalist Discharg e Summary Adore Walter : 1935 Admit date: 10/01/2021 Discharge date: 10/06/2021 Admitting Physician: Guillermo Grigsby MD Primary Care Physician: Chris Arora DO Visit Status: Admission Code Status: Prior Discharge Diagnoses: 1. Acute encephalopathy likely 2/2 narcotics use and delirium--> resolved, at baseline 2. Right distal femur fracture related to Osteoporosis--> s/p fall out of bed. Orthopedic following and recommending non-operative measures given morbidity of possible procedure. Advise NWB RLE in KI. 3. UTI--> UCx NGTD, complete Keflex therapy on 10/06 for total 5 days 4. Hyponatremia likely d/t hypovolemia -->stable 5. Leukocytosis 6. Hx of Left femur periprosthetic fracture s/p ORIF (09/25/20)--> Orthopedic following. Follow up in 1 week for incision check and staple removal 7. Normocytic anemia --> baseline Hg 8 8. HTN 9. HLD 10. COPD Diagnosis Date ? Chronic airway obstruction, not elsewhere classified ? Essential hypertension 12/14/2020 ? Hx of blood clots lower extremity- over 50 yrs ago ? Hydronephrosis BOTH KIDNEYS AND SCHEDULED FOR THE PROCEDURE / SURGERY ON 01/03/2019 ? Hyperlipidemia ? Osteoarthrosis, unspecified whether generalized or localized, unspecified site ? Osteoporosis, unspecified ? Skin cancer skin- L&R arms,face, bilat legs, back Procedures: None Hospital Course: See discharge diagnoses list above and medication adjustments below in med rec.The patient is discharged in improved and stable condition. Consults: IP CONSULT TO ORTHOPEDIC SURGERY IP CONSULT TO ORTHOPEDIC SURGERY Discharge Instructions: Diet: No diet orders on file Activity: as tolerated Recommended Outpatient Tests: Disposition: Patient discharged in stable condition to [facility] care of [facility]. Greater than 30 minutes spent discharging the patient and coming up with patient discharge plan. Vitals: BP 136/65 Pulse 87 Temp 98.7 ?F (37.1 ?C) (Temporal) Resp 24 SpO2 93% Pulse Ox: SpO2 Av % Min: 93 % Max: 97 % Supplemental O2: O2 Flow Rate (L/min): 1 L/min General appearance: No apparent distress, appears stated age and cooperative with exam HEENT: Normal cephalic, atraumatic without obvious deformity. Pupils equal, round, and reactive to light. Extra ocular muscles intact. Conjunctivae/corneas clear. Neck: Supple, with full range of motion. No jugular venous distention. Trachea midline. No lymphadenopathy. Respiratory: Normal respiratory effort. Clear to auscultation, bilaterally without Rales/Wheezes/Rhonchi. Cardiovascular: Regular rate and rhythm with normal S1/S2 without murmurs, rubs or gallops. Abdomen: Soft, non-tender, non-distended with normal bowel sounds. No rebound or guarding. Musculoskeletal: No clubbing, cyanosis or edema bilaterally. Full range of motion without deformity. Skin: Skin color, texture, turgor normal. No rashes or lesions. Neurologic: Neurovascularly intact without any focal sensory/motor deficits. Cranial nerves: II-XII intact, grossly non-focal. Discharge Medications: Medication List START taking these medications cephALEXin 500 MG capsule Commonly known as: KEFLEX Take 1 capsule by mouth every 12 hours for 1 dose CONTINUE taking these medications acetaminophen 500 MG tablet Commonly known as: TYLENOL alendronate 70 MG tablet Commonly known as: Fosamax Take 1 tablet by mouth every 7 days bisacodyl 10 MG suppository Commonly known as: DULCOLAX Place 1 suppository rectally daily as needed for Constipation (2nd line or patient preference) carvedilol 12.5 MG tablet Commonly known as: COREG Take 1 tablet by mouth daily docusate sodium 100 MG capsule Commonly known as: COLACE Take 1 capsule by mouth 2 times daily enoxaparin 40 MG/0.4ML injection Commonly known as: LOVENOX Inject 0.4 mLs into the skin daily for 21 days Handicap Placard Misc 1 each by Does not apply route daily lidocaine 4 % external patch Place 1 patch onto the skin daily lisinopril 5 MG tablet Commonly known as: PRINIVIL;ZESTRIL Take 1 tablet by mouth daily ondansetron 4 MG disintegrating tablet Commonly known as: ZOFRAN-ODT Take 1 tablet by mouth every 8 hours as needed for Nausea or Vomiting polyethylene glycol 17 g packet Commonly known as: GLYCOLAX Take 17 g by mouth daily simvastatin 10 MG tablet Commonly known as: ZOCOR Take 1 tablet by mouth nightly STOP taking these medications oxyCODONE 5 MG immediate release tablet Commonly known as: ROXICODONE Where to Get Your Medications These medications were sent to [address] - [phone] - F [phone] [place] [id number] ? cephALEXin 500 MG capsule Recommended Follow-up: Alexander River MD [facility] [address] [place] [phone] Schedule an appointment as soon as (more content not included)... [facility] 10-06-2021 History of Present illness Narrative COVID nasal swab ordered for potential discharge today This patient was seen as a hospital courtesy for improved patient care. Thank you for allowing me to participate in the medical care of your patient. Work Categories (check all that apply) [x] Avoidable Day Recovered [] Query Response for [name] [x] Discharge Planning [] Readmission Risk Addressed [] PSI / HAC reviewed [] Med Rec Addressed [] SOI Expected Impact [] ROM Expected Impact [] POA Clarified [] CODING AUDITOR Avoided [] Nursing Function [x] Provider Function for [Roland] [x] Orders Placed [] Symptom Assessment [] Patient Experience [] Patient / Caregiver Conversation Physical Therapy Facility/Department: [facility] MED SURG Daily Treatment Note NAME: Adore Walter : 1935 Date of Service: 10/05/2021 Discharge Recommendations: Based on the patient's functional mobility, prior level of function, and participation during initial assessment, recommend Facility-Based Therapy at discharge. Assessment Assessment: Pt still presents with decreased functional mobility. Pt able to complete bed level exercises within restrictions. Pt requires extended time along with AAROM to complete. Pt was also educated on KI with donning and doffing and checking for skin breakdown. Pt is expected to benefit from continued therapy in order to increase overall independence. REQUIRES PT FOLLOW UP: Yes Activity Tolerance Activity Tolerance: Patient limited by fatigue;Patient limited by pain Patient Diagnosis(es): The encounter diagnosis was Faith-prosthetic femoral shaft fracture -distal. has a past medical history of Chronic airway obstruction, not elsewhere classified, Essential hypertension, Hx of blood clots, Hydronephrosis, Hyperlipidemia, Osteoarthrosis, unspecified whether generalized or localized, unspecified site, Osteoporosis, unspecified, and Skin cancer. has a past surgical history that includes Appendectomy; Hysterectomy; bladder suspension; laryngoscopy; fracture surgery (Right); Colonoscopy; skin biopsy; Tonsillectomy; MICROLARYNGOSCOPY W BIOPSY (08/31/2019); joint replacement; joint replacement (Left); eye surgery (Bilateral); other surgical history (06/11/2021); and Femur fracture surgery (Left, 09/25/2021). Restrictions Restrictions/Precautions Restrictions/Precautions: Weight Bearing,General Precautions,Fall Risk,ROM Restrictions Required Braces or Orthoses?: Yes Lower Extremity Weight Bearing Restrictions Right Lower Extremity Weight Bearing: Non Weight Bearing Left Lower Extremity Weight Bearing: Toe Touch Weight Bearing Required Braces or Orthoses Right Lower Extremity Brace: Knee Immobilizer Position Activity Restriction Other position/activity restrictions: Pt admitted with right intraprosthetic distal femur fracture (non-op) who is also status post left femur ORIF for left intraprosthetic distal femur fracture on 09/25. Subjective General Chart Reviewed: Yes Family / Caregiver Present: No Subjective Subjective: Pt pleasant and agreeable to therapy. General Comment Comments: Per RN patient okay for therapy. Pain Screening Patient Currently in Pain: Yes (c/o of pain with exercises but didnt rate) Vital Signs Patient Currently in Pain: Yes (c/o of pain with exercises but didnt rate) Objective Bed mobility Comment: N/A Exercises Straight Leg Raise: 1 set of 5 reps R and L LE Quad Sets: 1 set of 5 reps R and L LE Heelslides: 1 set of 5 reps L LE Gluteal Sets: 1 set of 5 reps B LE Hip Abduction: 1 set of 5 reps R and L LE, 1 set of 5 reps B LE isometrically Ankle Pumps: 1 set of 5 reps R and L LE Comments: Pt educated to complete twice a day 10 reps. Pt still requires light AAROM to complete along with extended time. Other exercises Other exercises?: Yes Other exercises 1: Hip adduction: 1 set of 5 reps B LE Other Activities: Other (see comment) Comment: Educated on donning doffing on KI, along with skin integrity checks. Pt still requires assistance with donning and doffing due to pain with leaning forward. AM-PAC Score -[facility] Inpatient Mobility Raw Score : 6 (10/05/21 [facility]) AM-[facility] Inpatient T-Scale Score : 23.55 (10/05/21 142) Mobility Inpatient CMS 0-100% Score: 100 (10/05/211420) Mobility Inpatient CMS G-Code Modifier : CN (10/05/211420) Goals Short term goals Time Frame for Short term goals: 8 visits Short term goal 1: Pt will complete rolling with SBA in order to improve independence with mobility and decrease risk of skin breakdown. (N/A) Short term goal 2: Pt will complete supine <> sit with Reyes in order to improve independence and prepare for OOB mobility. (N/A) Short term goal 3: Pt will complete 1-2 sets / 10 reps LE exercises in order to improve strength for mobility. (not met) Short term goal 4: Pt will complete lateral scooting EOB with Reyes in order to prepare for slideboard transfer. (N/A) Short term goal 5: Pt will complete slideboard transfer with Reyes in order to complete OOB mobility. (N/A) Patient Goals Patient goals : Pt states she wants to get stronger and for the pain to go away Plan Plan Times per week: 6 visits Current Treatment Recommendations: Strengthening,Balance Training,Functional Mobility Training,Transfer Training,Endurance Training,Neuromuscular Re-education,Pain Management,Safety Education & Training,Patient/Caregiver Education & Training,Equipment Evaluation, Education, & procurement,Positioning Plan Comment: Goals and/or treatment plan were estahlished in collaboration with patient. Safety Devices Type of devices: All fall risk precautions in place,Call light within reach,Bed alarm in place,Patient at risk for falls,Left in bed,Nurse notified Therapy Time Individual Concurrent Group Co-treatment Time In 1341 Time Out 1405 Minutes 24 Timed Code Treatment Minutes: 24 Minutes (2 ther ex) Jaycee Olson PTA Images from the original note were not included. Hospitalist Progress Note 10/05/[id number]: Please page me ([phone]) for patient care issues. [phone]: Please page [facility] night Hospitalist for any issues. Subjective: Admit Date: 10/01/2021 PCP: Chris Arora DO Room#: [id number] Interval History: This is sitting on the bed comfortably, right leg pain is slightly better compared to yesterday. No significant overnight issues ADULT DIET; Regular No data found. 24HR INTAKE/OUTPUT: Intake/Output Summary (Last 24 hours) at 10/05/2021 1350 Last data filed at 10/05/2021 0640 Gross per 24 hour Intake 475 ml Output 1650 ml Net -1175 ml Past Medical History: Diagnosis Date Chronic airway obstruction, not elsewhere classified Essential hypertension 12/14/2020 Hx of blood clots lower extremity- over 50 yrs ago Hydronephrosis BOTH KIDNEYS AND SCHEDULED FOR THE PROCEDURE / SURGERY ON 01/03/2019 Hyperlipidemia Osteoarthrosis, unspecified whether generalized or localized, unspecified site Osteoporosis, unspecified Skin cancer skin- L&R arms,face, bilat legs, back LABS: CBC: Recent Labs 10/03/21 0427 WBC 8.6 RBC 2.34* HGB 7.3* HCT 21.9* MCV 93.6 RDW 14.3 PLT 321 BMP: Recent Labs 10/03/21 0427 NA 132* K 3.5 CL 103 CO2 27 BUN 21* CREATININE 0.56 GLUCOSE 97 CALCIUM 7.9* ANIONGAP 2* LIVER PROFILE: No results for input(s): AST, ALT, BILITOT, ALKPHOS, LABALBU, PROT in the last 72 hours. PT/INR: No results for input(s): PROTIME, INR in the last 72 hours. CARDIAC ENZYMES: No results for input(s): TROPONINI in the last 72 hours. Procalcitonin: No results found for: PROCAL COVID-19 PCR: No results for input(s): COVID19 in the last 72 hours. Objective: Vitals: BP (!) 127/48 Pulse 77 Temp 98.2 F (36.8 C) (Temporal) Resp 16 SpO2 94% Pulse Ox: SpO2 Av % Min: 94 % Max: 98 % Supplemental O2: O2 Flow Rate (L/min): 1 L/min General appearance: No signs of distress HEENT: Normal cephalic, atraumatic without obvious deformity. Pupils equal, round, and reactive to light. Extra ocular muscles intact. Conjunctivae/corneas clear. Neck: Supple, with full range of motion. No jugular venous distention. Trachea midline. No lymphadenopathy. Respiratory: Normal respiratory effort. Clear to auscultation, bilaterally without Rales/Wheezes/Rhonchi. Cardiovascular: Regular rate and rhythm with normal S1/S2 without murmurs, rubs or gallops. Abdomen: Soft, non-tender, non-distended with normal bowel sounds. No rebound or guarding. Musculoskeletal: No clubbing, cyanosis or edema bilaterally. Full range of motion without deformity. Skin: Skin color, texture, turgor normal. No rashes or lesions. Neurologic: No focal deficits Medications: lactated ringers 75 mL/hr at 10/04/215 sodium chloride cephALEXin 500 mg Oral 2 times per day carvedilol 12.5 mg Oral Daily docusate sodium 100 mg Oral BID lisinopril 5 mg Oral Daily polyethylene glycol 17 g Oral Daily sodium chloride flush 5-40 mL IntraVENous 2 times per day enoxaparin 40 mg SubCUTAneous Daily pantoprazole 40 mg Oral QAM AC atorvastatin 10 mg Oral Nightly Assessment Acute metabolic encephalopathy. Right distal femur fracture. History of recent left femur fracture s/p repair on 09/25 Leukocytosis. Hyponatremia. Normocytic anemia. Hypertension Hyperlipidemia. COPD. Plan: -Patient's mental status started improving, close to baseline. -Regarding right femur fracture orthopedics came and evaluated the patient recommended nonoperative management of right femur, follow-up in 1 week for incision check and staple removal for left lower extremity, symptomatic management with pain medications and PT OT. -Leukocytosis resolved -Suspected urinary tract infection, urine cultures no growth, discontinued IV antibiotics changed to Keflex to finish the course for 5 days. -Sodium levels improving, stable. -Blood pressure is well controlled with the current regimen. -Continue statins. -No signs of COPD exacerbation. Disposition: Initial plan was to discharge patient back to group home facility where patient came from. Patient family refusing to go to [facility] Discussed with patient's son, and patient in the room, they are requesting a different group home facility. -am labs, replace lytes prn -increase activity -DVT prophylaxis: [] Lovenox [] Heparin [] SCDs [x] Encourage ambulation [] Already on Anticoagulation Advance Directive: Full Code Discharge planning: TBD Drake Farris MD Division of Hospitalist Medicine Inpatient Medical Services PAGER: [phone] Images from the original note were not included. Hospitalist Progress Note 10/04/2021 [phone]: Please page me ([phone]) for patient care issues. [phone]: Please page [facility] night Hospitalist for any issues. Subjective: Admit Date: 10/01/2021 PCP: Chris Arora DO Room#: [id number] Interval History: Patient is a sitting on the bed, neck pain is slightly better compared to yesterday. Denies any abdominal pain nausea or vomitings. ADULT DIET; Regular No data found. 24HR INTAKE/OUTPUT: Intake/Output Summary (Last 24 hours) at 10/04/2021 1220 Last data filed at 10/04/2021 1005 Gross per 24 hour Intake 2165 ml Output 1375 ml Net 790 ml Past Medical History: Diagnosis Date Chronic airway obstruction, not elsewhere classified Essential hypertension 12/14/2020 Hx of blood clots lower extremity- over 50 yrs ago Hydronephrosis BOTH KIDNEYS AND SCHEDULED FOR THE PROCEDURE / SURGERY ON 01/03/2019 Hyperlipidemia Osteoarthrosis, unspecified whether generalized or localized, unspecified site Osteoporosis, unspecified Skin cancer skin- L&R arms,face, bilat legs, back LABS: CBC: Recent Labs 10/02/21 0128 10/03/21426 WBC 12.8* 8.6 RBC 2.59* 2.34* HGB 8.1* 7.3* HCT 24.3* 21.9* MCV 93.8 93.6 RDW 13.9 14.3 PLT 334 321 BMP: Recent Labs 10/02/21 0128 10/03/21426 NA 130* 132* K 3.9 3.5 CL 101 103 CO2 22 27 BUN 20 21* CREATININE 0.61 0.56 GLUCOSE 124* 97 CALCIUM 8.4 7.9* ANIONGAP 7 2* LIVER PROFILE: Recent Labs 10/02/21127 AST 40 ALT 22 BILITOT 3.0* ALKPHOS 83 LABALBU 3.5 PROT 5.8* PT/INR: Recent Labs 10/01/21 1535 PROTIME 11.5 INR 1.1 CARDIAC ENZYMES: No results for input(s): TROPONINI in the last 72 hours. Procalcitonin: No results found for: PROCAL COVID-19 PCR: No results for input(s): COVID19 in the last 72 hours. Objective: Vitals: BP (!) 117/48 Pulse 78 Temp 98.2 F (36.8 C) (Temporal) Resp 16 SpO2 95% Pulse Ox: SpO2 Av % Min: 95 % Max: 95 % Supplemental O2: O2 Flow Rate (L/min): 1 L/min General appearance: No signs of distress HEENT: Normal cephalic, atraumatic without obvious deformity. Pupils equal, round, and reactive to light. Extra ocular muscles intact. Conjunctivae/corneas clear. Neck: Supple, with full range of motion. No jugular venous distention. Trachea midline. No lymphadenopathy. Respiratory: Normal respiratory effort. Clear to auscultation, bilaterally without Rales/Wheezes/Rhonchi. Cardiovascular: Regular rate and rhythm with normal S1/S2 without murmurs, rubs or gallops. Abdomen: Soft, non-tender, non-distended with normal bowel sounds. No rebound or guarding. Musculoskeletal: No clubbing, cyanosis or edema bilaterally. Full range of motion without deformity. Skin: Skin color, texture, turgor normal. No rashes or lesions. Neurologic: No focal deficits Medications: lactated ringers 75 mL/hr at 10/04/21 1004 sodium chloride cephALEXin 500 mg Oral 2 times per day carvedilol 12.5 mg Oral Daily docusate sodium 100 mg Oral BID lisinopril 5 mg Oral Daily polyethylene glycol 17 g Oral Daily sodium chloride flush 5-40 mL IntraVENous 2 times per day enoxaparin 40 mg SubCUTAneous Daily pantoprazole 40 mg Oral QAM AC atorvastatin 10 mg Oral Nightly Assessment Acute metabolic encephalopathy. Right distal femur fracture. History of recent left femur fracture s/p repair on 09/25 Leukocytosis. Hyponatremia. Normocytic anemia. Hypertension Hyperlipidemia. COPD. Plan: -Patient's mental status started improving, close to baseline. -Regarding right femur fracture orthopedics came and evaluated the patient recommended nonoperative management of right femur, follow-up in 1 week for incision check and staple removal for left lower extremity, symptomatic management with pain medications and PT OT. -Leukocytosis resolved -Suspected urinary tract infection, urine cultures no growth, discontinued IV antibiotics changed to Keflex to finish the course for 5 days. -Sodium levels improving, stable. -Blood pressure is well controlled with the current regimen. -Continue statins. -No signs of COPD exacerbation. Disposition: Initial plan was to discharge patient back to group home facility where patient came from. Patient family refusing to go to [facility] Discussed with patient's son, and patient in the room, they are requesting a different group home facility. -am labs, replace lytes prn -increase activity -DVT prophylaxis: [] Lovenox [] Heparin [] SCDs [x] Encourage ambulation [] Already on Anticoagulation Advance Directive: Full Code Discharge planning: TBD Drake Farris MD Division of Hospitalist Medicine Inpatient Medical Services PAGER: [phone] Physical Therapy Facility/Department: [facility] MED SURG Daily Treatment Note NAME: Adore Walter : 1935 Date of Service: 10/04/2021 Discharge Recommendations: Based on the patient's functional mobility, prior level of function, and participation during initial assessment, recommend Facility-Based Therapy at discharge. Assessment Assessment: Pt continue to present with decreased functional mobility, safety awareness, endurance and is limited by pain with all mobility. Pt completes rolling bilat withmax x2; max x2 to scoot; able to long sit for short periods of time. She continue to present at increased risk for falls and will benefit from skilled therapy topromote mobility, facility rec remains appropriate PT Education: Goals;PT Role;Plan of Care;Precautions;Transfer Training;General Safety;Functional Mobility Training;Pressure Relief;Injury Prevention;Home Exercise Program REQUIRES PT FOLLOW UP: Yes Activity Tolerance Activity Tolerance: Patient limited by fatigue;Patient limited by pain Patient Diagnosis(es): The encounter diagnosis was Faith-prosthetic femoral shaft fracture -distal. has a past medical history of Chronic airway obstruction, not elsewhere classified, Essential hypertension, Hx of blood clots, Hydronephrosis, Hyperlipidemia, Osteoarthrosis, unspecified whether generalized or localized, unspecified site, Osteoporosis, unspecified, and Skin cancer. has a past surgical history that includes Appendectomy; Hysterectomy; bladder suspension; laryngoscopy; fracture surgery (Right); Colonoscopy; skin biopsy; Tonsillectomy; MICROLARYNGOSCOPY W BIOPSY (08/31/2019); joint replacement; joint replacement (Left); eye surgery (Bilateral); other surgical history (06/11/2021); and Femur fracture surgery (Left, 09/25/2021). Restrictions Restrictions/Precautions Restrictions/Precautions: Weight Bearing,General Precautions,Fall Risk,ROM Restrictions Required Braces or Orthoses?: Yes Lower Extremity Weight Bearing Restrictions Right Lower Extremity Weight Bearing: Non Weight Bearing Left Lower Extremity Weight Bearing: Toe Touch Weight Bearing Required Braces or Orthoses Right Lower Extremity Brace: Knee Immobilizer Position Activity Restriction Other position/activity restrictions: Pt admitted with right intraprosthetic distal femur fracture (non-op) who is also status post left femur ORIF for left intraprosthetic distal femur fracture on 09/25. Subjective General Chart Reviewed: Yes Response To Previous Treatment: Patient with no complaints from previous session. Family / Caregiver Present: No Subjective Subjective: Pt pleasant and agreeable to therapy. General Comment Comments: Per RN patient okay for therapy. Co-tx with OT. Pain Screening Patient Currently in Pain: Yes Pain Assessment Pain Level: 10 Non-Pharmaceutical Pain Intervention(s): Ambulation/Increased Activity;Repositioned (RN aware) Vital Signs Patient Currently in Pain: Yes Objective Bed mobility Rolling to Left: Maximum assistance;2 Person assistance Rolling to Right: Maximum assistance;2 Person assistance Supine to Sit: (pt c/o increased pain with mobility, declines sitting) Scootin Person assistance;Maximal assistance Comment: Pt requires max x2 assist to reposition and complete bed change. Pt demo increased pain with all mobility. Therapist cues pt for sequencing to roll thorughout, pt able to ling sit ~1 minute with min A to assist to position from elevated bed surface Transfers Sit to Stand: Unable to assess Stand to sit: Unable to assess Ambulation Ambulation?: No Stairs/Curb Stairs?: No Exercises Quad Sets: attempted-pt reports too much pain, stopped exercise Gluteal Sets: 2 set 10 reps BLE supine Ankle Pumps: 2 set 10 reps BLE supine Comments: Pt limited by pain with all active movement; therapist demo and instruct pt in exercises, she completes with verbal cues for technique AM-PAC Score AM-[facility] Inpatient Mobility Raw Score : 6 (10/04/211138) AM-[facility] Inpatient T-Scale Score : 23.55 (10/04/211138) Mobility Inpatient CMS 0-100% Score: 100 (10/04/211138) Mobility Inpatient CMS G-Code Modifier : CN (10/04/211138) Goals Short term goals Time Frame for Short term goals: 8 visits Short term goal 1: Pt will complete rolling with SBA in order to improve independence with mobility and decrease risk of skin breakdown. (not met) Short term goal 2: Pt will complete supine <> sit with Reyes in order to improve independence and prepare for OOB mobility. (not met) Short term goal 3: Pt will complete 1-2 sets / 10 reps LE exercises in order to improve strength for mobility. (not met) Short term goal 4: Pt will complete lateral scooting EOB with Reyes in order to prepare for slideboard transfer. (not met) Short term goal 5: Pt will complete slideboard transfer with Reyes in order to complete OOB mobility. (not met) Patient Goals Patient goals : Pt states she wants to get stronger and for the pain to go away Plan Plan Times per week: 7 visits Current Treatment Recommendations: Strengthening,Balance Training,Functional Mobility Training,Transfer Training,Endurance Training,Neuromuscular Re-education,Pain Management,Safety Education & Training,Patient/Caregiver Education & Training,Equipment Evaluation, Education, & procurement,Positioning Plan Comment: Goals and/or treatment plan were estahlished in collaboration with patient. Safety Devices Type of devices: All fall risk precautions in place,Call light within reach,Bed alarm in place,Patient at risk for falls,Left in bed,Nurse notified Therapy Time Individual Concurrent Group Co-treatment Time In 957 (co-tx with OT) Time Out 1008 Minutes 10 Timed Code Treatment Minutes: 8 Minutes (ther act x1) Gideon Moy PT Occupational Therapy Facility/Department: [facility] MED SURG Daily Treatment Note NAME: Adore Walter : 1935 Date of Service: 10/04/2021 Discharge Recommendations: (Based on the patient's functional mobility, prior level of function, and participation during initial assessment, recommend Facility-Based Therapy at discharge.) Assessment Assessment: Pt with poor activity tolerance for bed mobility this date. C/o 05/11 pain and had pain meds prior to therapy. Pt is set up with UB self care in the bed in long sitting. Pleasant and cooperative but declines to sit EOB. Would benefit from continued OT to increase strength and endurance needed for ADL's and transfers. REQUIRES OT FOLLOW UP: Yes Safety Devices Safety Devices in place: Yes Type of devices: All fall risk precautions in place;Call light within reach;Gait belt;Patient at risk for falls;Nurse notified;Left in bed Patient Diagnosis(es): The encounter diagnosis was Faith-prosthetic femoral shaft fracture -distal. has a past medical history of Chronic airway obstruction, not elsewhere classified, Essential hypertension, Hx of blood clots, Hydronephrosis, Hyperlipidemia, Osteoarthrosis, unspecified whether generalized or localized, unspecified site, Osteoporosis, unspecified, and Skin cancer. has a past surgical history that includes Appendectomy; Hysterectomy; bladder suspension; laryngoscopy; fracture surgery (Right); Colonoscopy; skin biopsy; Tonsillectomy; MICROLARYNGOSCOPY W BIOPSY (08/31/2019); joint replacement; joint replacement (Left); eye surgery (Bilateral); other surgical history (06/11/2021); and Femur fracture surgery (Left, 09/25/2021). Restrictions Restrictions/Precautions Restrictions/Precautions: Weight Bearing,General Precautions,Fall Risk,ROM Restrictions Required Braces or Orthoses?: Yes Lower Extremity Weight Bearing Restrictions Right Lower Extremity Weight Bearing: Non Weight Bearing Left Lower Extremity Weight Bearing: Toe Touch Weight Bearing Required Braces or Orthoses Right Lower Extremity Brace: Knee Immobilizer Position Activity Restriction Other position/activity restrictions: Pt admitted with right intraprosthetic distal femur fracture (non-op) who is also status post left femur ORIF for left intraprosthetic distal femur fracture on 09/25. Subjective General Chart Reviewed: Yes Family / Caregiver Present: No Subjective Subjective: "I'd like to move. I've been in the same spot for a while" General Comment Comments: RN states okay to see. Vital Signs Patient Currently in Pain: Yes ("it's over a ten") Objective ADL Grooming: Minimal assistance (assist to clean dentures at the sink) UE Bathing: Stand by assistance LE Bathing: Dependent/Total UE Dressing: Minimal assistance LE Dressing: Dependent/Total Toileting: (has hoffman.) Additional Comments: Pt initially agreed to sit EOB but then in too much pain. Agrees to ADL's in the bed with set up assist for UB. Total assist to position right leg immobilizer. Knee had been bent slightly dut to immobilizer being too low. Very poor tolerance for repositioning of immobilizer due to 10/10 pain. Balance Sitting Balance: (Initilly agreed to sit EOB but unable to tolerate bed mobility due to pain.) Bed mobility Rolling to Left: Maximum assistance;2 Person assistance Rolling to Right: Maximum assistance;2 Person assistance Scooting: Maximal assistance;2 Person assistance Comment: Rolling to reposition pt with bed pads and then to scoot up in the bed. Pt able to help slightly by reaching for bed rail. Plan Plan Times per week: 7 visits Times per day: Daily Current Treatment Recommendations: Strengthening,Balance Training,Functional Mobility Training,Endurance Training,Safety Education & Training,Self-Care / ADL,Positioning,Pain Management,Equipment Evaluation, Education, & procurement,Patient/Caregiver Education & Training Plan Comment: POC and goals were made in collaboration with the pt. AM-PAC Score AM-PAC Inpatient Daily Activity Raw Score: 14 (10/04/211122) AM-PAC Inpatient ADL T-Scale Score : 33.39 (10/04/211122) ADL Inpatient CMS 0-100% Score: 59.67 (10/04/211122) ADL Inpatient [facility] G-Code Modifier : CK (10/04/211122) Goals Short term goals Time Frame for Short term goals: 8 visits Short term goal 1: Pt will complete functional transfers via slide board with min A. NA Short term goal 2: Pt will complete bed mobility including lateral scooting along EOB with min A in preparation for slide board transfer. progressing Short term goal 3: Pt will complete functional sitting with mod I >8 min with mod I in order to increase occupational participation. NA Short term goal 4: Pt will complete BUE strengthening exercises in order to increase strength required for functional transfers. NA Short term goal 5: Pt will complete UB ADLs with SUP. progressing Short term goal 6: Pt will complete LB ADLs/toileting with min A. NA Therapy Time Individual Concurrent Group Co-treatment Time In 951 Time Out 1029 Minutes 37 Timed Code Treatment Minutes: 32 Minutes (adl and ther act) JOJO Carey Images from the original note were not included. Hospitalist Progress Note 10/03/2021 [phone]: Please page me ([phone]) for patient care issues. [phone]: Please page [facility] night Hospitalist for any issues. Subjective: Admit Date: 10/01/2021 PCP: Chris Arora DO Room#: [id number] Interval History: Patient is lying on the bed, she is alert oriented x2 answering my questions appropriately. Requesting pillows under her knees. Complaining of some mild right hip pain. Denies any chest pain shortness of breath or palpitation. Tolerating p.o. diet well. No other significant overnight issues. ADULT DIET; Regular No data found. 24HR INTAKE/OUTPUT: Intake/Output Summary (Last 24 hours) at 10/03/2021 1440 Last data filed at 10/03/2021 0617 Gross per 24 hour Intake 1472 ml Output 775 ml Net 697 ml Past Medical History: Diagnosis Date Chronic airway obstruction, not elsewhere classified Essential hypertension 12/14/2020 Hx of blood clots lower extremity- over 50 yrs ago Hydronephrosis BOTH KIDNEYS AND SCHEDULED FOR THE PROCEDURE / SURGERY ON 01/03/2019 Hyperlipidemia Osteoarthrosis, unspecified whether generalized or localized, unspecified site Osteoporosis, unspecified Skin cancer skin- L&R arms,face, bilat legs, back LABS: CBC: Recent Labs 10/01/21 0503 10/02/21 0128 10/03/21 0427 WBC 11.5* 12.8* 8.6 RBC 2.94* 2.59* 2.34* HGB 9.3* 8.1* 7.3* HCT 27.8* 24.3* 21.9* MCV 94.5 93.8 93.6 RDW 13.8 13.9 14.3 PLT 328 334 321 BMP: Recent Labs 10/01/21 0455 10/02/21 0128 10/03/21 0427 NA 131* 130* 132* K 4.2 3.9 3.5 CL 98 101 103 CO2 25 22 27 BUN 19 20 21* CREATININE 0.57 0.61 0.56 GLUCOSE 130* 124* 97 CALCIUM 9.0 8.4 7.9* ANIONGAP 7 7 2* LIVER PROFILE: Recent Labs 10/02/21 0128 AST 40 ALT 22 BILITOT 3.0* ALKPHOS 83 LABALBU 3.5 PROT 5.8* PT/INR: Recent Labs 10/01/21 1535 PROTIME 11.5 INR 1.1 CARDIAC ENZYMES: No results for input(s): TROPONINI in the last 72 hours. Procalcitonin: No results found for: PROCAL COVID-19 PCR: Recent Labs 10/01/21 0612 COVID19 Not Detected. Objective: Vitals: BP (!) 120/59 Pulse 72 Temp 99.2 F (37.3 C) (Temporal) Resp 16 SpO2 97% Pulse Ox: SpO2 Av.5 % Min: 97 % Max: 98 % Supplemental O2: O2 Flow Rate (L/min): 1.5 L/min General appearance: No signs of distress HEENT: Normal cephalic, atraumatic without obvious deformity. Pupils equal, round, and reactive to light. Extra ocular muscles intact. Conjunctivae/corneas clear. Neck: Supple, with full range of motion. No jugular venous distention. Trachea midline. No lymphadenopathy. Respiratory: Normal respiratory effort. Clear to auscultation, bilaterally without Rales/Wheezes/Rhonchi. Cardiovascular: Regular rate and rhythm with normal S1/S2 without murmurs, rubs or gallops. Abdomen: Soft, non-tender, non-distended with normal bowel sounds. No rebound or guarding. Musculoskeletal: No clubbing, cyanosis or edema bilaterally. Full range of motion without deformity. Skin: Skin color, texture, turgor normal. No rashes or lesions. Neurologic: No focal deficits Medications: lactated ringers 75 mL/hr at 10/03/21 0300 sodium chloride cephALEXin 500 mg Oral 2 times per day carvedilol 12.5 mg Oral Daily docusate sodium 100 mg Oral BID lisinopril 5 mg Oral Daily polyethylene glycol 17 g Oral Daily sodium chloride flush 5-40 mL IntraVENous 2 times per day enoxaparin 40 mg SubCUTAneous Daily pantoprazole 40 mg Oral QAM AC atorvastatin 10 mg Oral Nightly Assessment Acute metabolic encephalopathy. Right distal femur fracture. History of recent left femur fracture s/p repair on 09/25 Leukocytosis. Hyponatremia. Normocytic anemia. Hypertension Hyperlipidemia. COPD. Plan: -Patient's mental status started improving, close to baseline. -Regarding right femur fracture orthopedics came and evaluated the patient recommended nonoperative management of right femur, follow-up in 1 week for incision check and staple removal for left lower extremity, symptomatic management with pain medications and PT OT. -Leukocytosis resolved -Suspected urinary tract infection, urine cultures no growth, discontinued IV antibiotics changed to Keflex to finish the course for 5 days. -Sodium levels improving, stable. -Blood pressure is well controlled with the current regimen. -Continue statins. -No signs of COPD exacerbation. Disposition: Initial plan was to discharge patient back to group home facility where patient came from. Patient family refusing to go to [facility] Discussed with patient's son, and patient in the room, they are requesting a different group home facility. -am labs, replace lytes prn -increase activity -DVT prophylaxis: [] Lovenox [] Heparin [] SCDs [x] Encourage ambulation [] Already on Anticoagulation Advance Directive: Full Code Discharge planning: TBD Drake Farris MD Division of Hospitalist Medicine Inpatient Medical Services PAGER: [phone] Nutrition rescreen completed. Patient assigned a level 1. Physical Therapy Chart reviewed. RN cleared pt for therapy. Pt presents supine with HOB elevated. Declines therapy services this date secondary to BLE pain with movement. Pt request therapy re-attempt another date. This SCREEN PRINTING MACHINE LOADER UNLOADER provided education on benefits of therapy and max encouragement, with pt continuing to decline. PT will continue to follow. Will re-attempt another time and date. Shannan Sinclair, SCREEN PRINTING MACHINE LOADER UNLOADER Physical Therapy Facility/Department: [facility] MED SURG Initial Assessment NAME: Adore Walter : 1935 Date of Service: 10/02/2021 Discharge Recommendations: Based on the patient's functional mobility, prior level of function, and participation during initial assessment, recommend Facility-Based Therapy at discharge. PT Equipment Recommendations Other: TBD at next level of care Assessment Body structures, Functions, Activity limitations: Decreased functional mobility ;Decreased ROM;Decreased strength;Decreased safe awareness;Decreased endurance;Decreased balance;Increased pain Assessment: Pt present with decreased functional mobility, decreased strength/ROM, decreased safety awareness, decreased endurance, impaired balance and pain. Pt has decreased sitting balance requiring 2 person assist for bed level mobility placing her at a high risk of falling. Pt significantly limited by pain, however willing to attempt all tasks. Pt could benefit from skilled PT in order to address her decreased functional mobility, strength, balance and safety. Prognosis: Good;Fair Decision Making: Medium Complexity History: Pt admitted with right intraprosthetic distal femur fracture (non-op) after falling out of bed in rehab, who is also status post left femur ORIF for left intraprosthetic distal femur fracture on 09/25. Exam: AM-PAC Clinical Presentation: Pt admitted with right intraprosthetic distal femur fracture (non-op) after falling out of bed in rehab, who is also status post left femur ORIF for left intraprosthetic distal femur fracture on 09/25. Pt has medical history as indicated below that contributes to her clinical presentation. At baseline patient is functionally independent with a cane. Currently patient is unsafe to return home secondary to her increased need for assist and fall risks with mobility. PT Education: Goals;PT Role;Plan of Care;Precautions;Transfer Training;General Safety;Functional Mobility Training;Pressure Relief;Injury Prevention Barriers to Learning: Pt has increased pain which may impact her ability to learn. REQUIRES PT FOLLOW UP: Yes Activity Tolerance Activity Tolerance: Patient limited by fatigue;Patient limited by pain;Patient limited by endurance Patient Diagnosis(es): The encounter diagnosis was Faith-prosthetic femoral shaft fracture -distal. has a past medical history of Chronic airway obstruction, not elsewhere classified, Essential hypertension, Hx of blood clots, Hydronephrosis, Hyperlipidemia, Osteoarthrosis, unspecified whether generalized or localized, unspecified site, Osteoporosis, unspecified, and Skin cancer. has a past surgical history that includes Appendectomy; Hysterectomy; bladder suspension; laryngoscopy; fracture surgery (Right); Colonoscopy; skin biopsy; Tonsillectomy; MICROLARYNGOSCOPY W BIOPSY (08/31/2019); joint replacement; joint replacement (Left); eye surgery (Bilateral); other surgical history (06/11/2021); and Femur fracture surgery (Left, 09/25/2021). Restrictions Restrictions/Precautions Restrictions/Precautions: Weight Bearing,General Precautions,Fall Risk,ROM Restrictions Required Braces or Orthoses?: Yes Lower Extremity Weight Bearing Restrictions Right Lower Extremity Weight Bearing: Non Weight Bearing Left Lower Extremity Weight Bearing: Toe Touch Weight Bearing Required Braces or Orthoses Right Lower Extremity Brace: Knee Immobilizer Position Activity Restriction Other position/activity restrictions: Pt admitted with right intraprosthetic distal femur fracture (non-op) who is also status post left femur ORIF for left intraprosthetic distal femur fracture on 09/25. Vision/Hearing Vision: Within Functional Limits Vision Exceptions: Wears glasses at all times Hearing: Within functional limits Subjective General Chart Reviewed: Yes Patient assessed for rehabilitation services?: Yes Family / Caregiver Present: No General Comment Comments: Per RN patient okay for therapy. Co-eval with OT. Subjective Subjective: Pt pleasant and agreeable to therapy. Pain Screening Patient Currently in Pain: Yes Pain Assessment Pain Assessment: Faces Beach-Bran Pain Rating: Hurts whole lot;Hurts worst Pain Type: Acute pain;Surgical pain Pain Location: Leg Pain Orientation: Right;Left Pain Descriptors: Aching Pain Frequency: Intermittent Non-Pharmaceutical Pain Intervention(s): Ambulation/Increased Activity;Emotional support;Repositioned (RN notified) Response to Pain Intervention: Patient Satisfied Vital Signs Patient Currently in Pain: Yes Orientation Orientation Overall Orientation Status: Within Functional Limits Orientation Level: Oriented to place;Oriented to situation;Oriented to time;Oriented to person Social/Functional History Social/Functional History Lives With: Spouse Type of Home: House Home Layout: Able to Live on Main level with bedroom/bathroom,Two level,Laundry in basement Home Access: Stairs to enter without rails,Stairs to enter with rails Entrance Stairs - Number of Steps: 2 without HR + 4 with HR Bathroom Shower/Tub: Walk-in shower Bathroom Toilet: Standard Bathroom Accessibility: Accessible Home Equipment: Cane ADL Assistance: Independent Homemaking Assistance: Independent Homemaking Responsibilities: Yes Ambulation Assistance: Independent (with cane) Transfer Assistance: Independent Active Size Cutter: No Patient's Size Cutter Info: Cognition Cognition Cognition Comment: Documentation reported pt confused this morning, however, pt appropriate with therapists this PM and answered questions/followed commands appropriately. Objective Observation/Palpation Posture: Fair Observation: significant bruising to LLE, LLE incisions intact with sergio; RLE with knee immobilizer, BUE bruising, hoffman and O2 intact AROM RLE (degrees) RLE General AROM: ankle WFL, knee immobilized, hip NT due to pain AROM LLE (degrees) LLE General AROM: ankle WFL, knee and hip NT due to pain Strength RLE Comment: demonstrates <3/5 with mobility Strength LLE Comment: demonstrates <3/5 with mobility Sensation Overall Sensation Status: WFL (no c/o numbness/tingling) Bed mobility Rolling to Left: Maximum assistance;2 Person assistance Rolling to Right: Maximum assistance Comment: Pt required max A x1-2 for rolling with assist to manage BLE/trunk and initiate rolling. Initiated supine to sit, however, pt with significant pain when managing BLE to EOB, however, pt completed long sitting in bed with SBA for ~3 min. Transfers Sit to Stand: Unable to assess Stand to sit: Unable to assess Ambulation Ambulation?: No Stairs/Curb Stairs?: No Balance Posture: Fair Sitting - Static: Fair;- Sitting - Dynamic: Poor;+ Standing - Static: (NT) Standing - Dynamic: (NT) Plan Plan Times per week: 8 visits Current Treatment Recommendations: Strengthening,Balance Training,Functional Mobility Training,Transfer Training,Endurance Training,Neuromuscular Re-education,Pain Management,Safety Education & Training,Patient/Caregiver Education & Training,Equipment Evaluation, Education, & procurement,Positioning Plan Comment: Goals and/or treatment plan were estahlished in collaboration with patient. Safety Devices Type of devices: All fall risk precautions in place,Call light within reach,Bed alarm in place,Patient at risk for falls,Left in bed,Nurse notified -[facility] Score [facility] Inpatient Mobility Raw Score : 7 (10/02/21 1501) [facility] Inpatient T-Scale Score : 26.42 (10/02/21 1501) Mobility Inpatient CMS 0-100% Score: 92.36 (10/02/21 1501) Mobility Inpatient CMS G-Code Modifier : CM (10/02/21 1501) [facility] Mobility Inpatient How much difficulty turning over in bed?: A Lot How much difficulty sitting down on / standing up from a chair with arms?: Unable How much difficulty moving from lying on back to sitting on side of bed?: Unable How much help from another person moving to and from a bed to a chair?: Total How much help from another person needed to walk in hospital room?: Total How much help from another person for climbing 3-5 steps with a railing?: Total [facility] Inpatient Mobility Raw Score : 7 [facility] Inpatient T-Scale Score : 26.42 Mobility Inpatient CMS 0-100% Score: 92.36 Mobility Inpatient CMS G-Code Modifier : CM Goals Short term goals Time Frame for Short term goals: 8 visits Short term goal 1: Pt will complete rolling with SBA in order to improve independence with mobility and decrease risk of skin breakdown. Short term goal 2: Pt will complete supine <> sit with Reyes in order to improve independence and prepare for OOB mobility. Short term goal 3: Pt will complete 1-2 sets / 10 reps LE exercises in order to improve strength for mobility. Short term goal 4: Pt will complete lateral scooting EOB with Reyes in order to prepare for slideboard transfer. Short term goal 5: Pt will complete slideboard transfer with Reyes in order to complete OOB mobility. Patient Goals Patient goals : Pt states she wants to get stronger and for the pain to go away Therapy Time Individual Concurrent Group Co-treatment Time In 1410 (co-eval with OT) Time Out 1429 Minutes 19 Briana Porter PT Occupational Therapy Occupational Therapy Initial Assessment Date: 10/02/2021 Patient Name: Adore Walter : 1935 Date of Service: 10/02/2021 Discharge Recommendations: Based on the patient's functional mobility, prior level of function, and participation during initial assessment, recommend Facility-Based Therapy at discharge. Assessment Performance deficits / Impairments: Decreased functional mobility ;Decreased ADL status;Decreased endurance;Decreased balance;Decreased strength;Decreased safe awareness;Decreased high-level IADLs Assessment: Prior to previous sx 09/25/21, pt was independent in ADLs, functional transfers and mobility with cane. pt now requires mod-total A for ADLs, and max A x1-2 for bed mobility with SBA for long sitting. Pt is limited by impaired balance, endurance and strength as well as BLE WB restrictions. Pt should benefit from skilled OT services in order to increase safety and independence in occupational participation. Prognosis: Good;Fair Decision Making: Medium Complexity History: Pt admitted with right intraprosthetic distal femur fracture (non-op) after falling out of bed in rehab, who is also status post left femur ORIF for left intraprosthetic distal femur fracture on 09/25. PMH is listed above. Exam: [facility] Assistance / Modification: max A OT Education: OT Role;Plan of Care;Precautions Barriers to Learning: none REQUIRES OT FOLLOW UP: Yes Activity Tolerance Activity Tolerance: Patient limited by fatigue;Patient limited by pain Safety Devices Safety Devices in place: Yes Type of devices: All fall risk precautions in place;Call light within reach;Gait belt;Patient at risk for falls;Nurse notified;Left in bed Patient Diagnosis(es): The encounter diagnosis was Faith-prosthetic femoral shaft fracture -distal. has a past medical history of Chronic airway obstruction, not elsewhere classified, Essential hypertension, Hx of blood clots, Hydronephrosis, Hyperlipidemia, Osteoarthrosis, unspecified whether generalized or localized, unspecified site, Osteoporosis, unspecified, and Skin cancer. has a past surgical history that includes Appendectomy; Hysterectomy; bladder suspension; laryngoscopy; fracture surgery (Right); Colonoscopy; skin biopsy; Tonsillectomy; MICROLARYNGOSCOPY W BIOPSY (08/31/2019); joint replacement; joint replacement (Left); eye surgery (Bilateral); other surgical history (06/11/2021); and Femur fracture surgery (Left, 09/25/2021). Restrictions Restrictions/Precautions Restrictions/Precautions: Weight Bearing,General Precautions,Fall Risk,ROM Restrictions Required Braces or Orthoses?: Yes Lower Extremity Weight Bearing Restrictions Right Lower Extremity Weight Bearing: Non Weight Bearing Left Lower Extremity Weight Bearing: Toe Touch Weight Bearing Required Braces or Orthoses Right Lower Extremity Brace: Knee Immobilizer Position Activity Restriction Other position/activity restrictions: Pt admitted with right intraprosthetic distal femur fracture (non-op) who is also status post left femur ORIF for left intraprosthetic distal femur fracture on 09/25. Subjective General Chart Reviewed: Yes Patient assessed for rehabilitation services?: Yes Family / Caregiver Present: No Subjective Subjective: Pt pleasant and cooperative. General Comment Comments: Per RNtariq for pt to participate in OT eval. Patient Currently in Pain: Yes Pain Assessment Pain Assessment: Faces Beach-Bran Pain Rating: Hurts whole lot;Hurts worst Pain Type: Acute pain;Surgical pain Pain Location: Leg Pain Orientation: Right;Left Pain Descriptors: Aching Pain Frequency: Intermittent Non-Pharmaceutical Pain Intervention(s): Ambulation/Increased Activity;Emotional support;Repositioned (RN notified) Response to Pain Intervention: Patient Satisfied Vital Signs Patient Currently in Pain: Yes Social/Functional History Social/Functional History Lives With: Spouse Type of Home: House Home Layout: Able to Live on Main level with bedroom/bathroom,Two level,Laundry in basement Home Access: Stairs to enter without rails,Stairs to enter with rails Entrance Stairs - Number of Steps: 2 without HR + 4 with HR Bathroom Shower/Tub: Walk-in shower Bathroom Toilet: Standard Bathroom Accessibility: Accessible Home Equipment: Cane ADL Assistance: Independent Homemaking Assistance: Independent Homemaking Responsibilities: Yes Ambulation Assistance: Independent (with cane) Transfer Assistance: Independent Active Size Cutter: No Patient's Size Cutter Info: Objective Vision: Within Functional Limits Vision Exceptions: Wears glasses at all times Hearing: Within functional limits Orientation Overall Orientation Status: Within Functional Limits Observation/Palpation Posture: Fair Observation: significant bruising to LLE, LLE incisions intact with sergio; RLE with knee immobilizer, BUE bruising, hoffman and O2 intact Balance Sitting Balance: Stand by assistance (Pt tolerated ~3 min of long sitting in bed with SBA and BUE prop.) ADL Feeding: Supervision Grooming: Minimal assistance UE Bathing: Moderate assistance LE Bathing: Dependent/Total UE Dressing: Moderate assistance LE Dressing: Dependent/Total Toileting: Maximum assistance Bed mobility Rolling to Left: Maximum assistance;2 Person assistance Rolling to Right: Maximum assistance Comment: Pt required max A x1-2 for rolling with assist to manage BLE/trunk and initiate rolling. Initiated supine to sit, however, pt with significant pain when managing BLE to EOB, however, pt completed long sitting in bed with SBA for ~3 min. Cognition Cognition Comment: Documentation reported pt confused this morning, however, pt appropriate with therapists this PM and answered questions/followed commands appropriately. Sensation Overall Sensation Status: WFL (no c/o numbness/tingling) LUE AROM (degrees) LUE General AROM: shoulder flex to 90 secondary to arthritis, distal WFL RUE AROM (degrees) RUE AROM : WFL LUE Strength L Hand General: 5/5 LUE Strength Comment: Shld <3/5, distal >3/5 RUE Strength R Hand General: 5/5 RUE Strength Comment: >3/5 Plan Plan Times per week: 8 visits Current Treatment Recommendations: Strengthening,Balance Training,Functional Mobility Training,Endurance Training,Safety Education & Training,Self-Care / ADL,Positioning,Pain Management,Equipment Evaluation, Education, & procurement,Patient/Caregiver Education & Training Plan Comment: POC and goals were made in collaboration with the pt. AM-PAC Score AM-PAC Inpatient Daily Activity Raw Score: 14 (10/02/21 1454) AM-PAC Inpatient ADL T-Scale Score : 33.39 (10/02/21 1454) ADL Inpatient CMS 0-100% Score: 59.67 (10/02/21 145) ADL Inpatient CMS G-Code Modifier : CK (10/02/211453) Goals Short term goals Time Frame for Short term goals: 8 visits Short term goal 1: Pt will complete functional transfers via slide board with min A. Short term goal 2: Pt will complete bed mobility including lateral scooting along EOB with min A in preparation for slide board transfer. Short term goal 3: Pt will complete functional sitting with mod I >8 min with mod I in order to increase occupational participation. Short term goal 4: Pt will complete BUE strengthening exercises in order to increase strength required for functional transfers. Short term goal 5: Pt will complete UB ADLs with SUP. Short term goal 6: Pt will complete LB ADLs/toileting with min A. Therapy Time Individual Concurrent Group Co-treatment Time In 1410 (co-eval with PT) Time Out 1429 Minutes 19 Gretchen Abdalla OT PT/OT order placed to facilitate discharge This patient was seen as a hospital courtesy for improved patient care. Thank you for allowing me to participate in the medical care of your patient. Work Categories (check all that apply) [] Avoidable Day Recovered [] Query Response for [name] [x] Discharge Planning [] Readmission Risk Addressed [] PSI / HAC reviewed [] Med Rec Addressed [] SOI Expected Impact [] ROM Expected Impact [] POA Clarified [] CODING AUDITOR Avoided [] Nursing Function [x] Provider Function for [Raffel, DIANE] [x] Orders Placed [] Symptom Assessment [] Patient Experience [] Patient / Caregiver Conversation CT reviewed. Fracture distal on the femur with impaction of the fragments. Given CT results,will plan for non operative management of the R femur given morbidity of possible procedure. NWB RLE in KI. Ok to open to air when resting in bed. Ice/Elevate. TDWB LLE. F/u in 1 week for incision check & staple removal. Will likely need placement. Ok for DVT ppx per 1 . Pain control/medical management per 1 . Ortho to sign off at this time, please contact golf professional resident with questions or concerns. Chi Betts MD Orthopaedic Surgery, PGY-3 [phone] Images from the original note were not included. Hospitalist Progress Note 10/01/2021 11:46 AM [phone]: Please perfect serve me for patient care issues. [phone]: Please page IMS night Hospitalist for any issues. Subjective: Admit Date: 10/01/2021 PCP: Chris Arora, DO Room#: 146/1464 Interval History: states that she just rolled out of bed and woke up on the floor. It's the opposite leg she just had a hip fracture in. Had standed a few times with PT/OT since surgery and was only tapping left foot on the ground. Eating and drinking okay prior to the fall and had a BM yesterday. No other complaints. Normally does not have a hoffman catheter. Asked if she would like to me call any family but she has talked to her son and her already. ADULT DIET; Regular No data found. 24HR INTAKE/OUTPUT: No intake or output data in the 24 hours ending 10/01/21 1146 Past Medical History: Diagnosis Date Chronic airway obstruction, not elsewhere classified Essential hypertension 12/14/2020 Hx of blood clots lower extremity- over 50 yrs ago Hydronephrosis BOTH KIDNEYS AND SCHEDULED FOR THE PROCEDURE / SURGERY ON 01/03/2019 Hyperlipidemia Osteoarthrosis, unspecified whether generalized or localized, unspecified site Osteoporosis, unspecified Skin cancer skin- L&R arms,face, bilat legs, back Medications: sodium chloride carvedilol 12.5 mg Oral Daily docusate sodium 100 mg Oral BID lisinopril 5 mg Oral Daily polyethylene glycol 17 g Oral Daily sodium chloride flush 5-40 mL IntraVENous 2 times per day enoxaparin 40 mg SubCUTAneous Daily pantoprazole 40 mg Oral QAM AC atorvastatin 10 mg Oral Nightly LABS: CBC: Recent Labs 10/01/21 0503 WBC 11.5* RBC 2.94* HGB 9.3* HCT 27.8* MCV 94.5 RDW 13.8 PLT 328 BMP: Recent Labs 10/01/21 0455 NA 131* K 4.2 CL 98 CO2 25 BUN 19 CREATININE 0.57 GLUCOSE 130* CALCIUM 9.0 ANIONGAP 7 LIVER PROFILE:No results for input(s): AST, ALT, BILITOT, ALKPHOS, LABALBU, PROT in the last 72 hours. PT/INR: No results for input(s): PROTIME, INR in the last 72 hours. CARDIAC ENZYMES: No results for input(s): TROPONINI in the last 72 hours. Procalcitonin: No results found for: PROCAL COVID-19 PCR: Recent Labs 09/29/21 1151 10/01/21 0612 COVID19 Not Detected. Not Detected. Objective: Vitals: BP (!) 149/74 Pulse 93 Temp 98.7 F (37.1 C) (Temporal) Resp 18 SpO2 91% Pulse Ox: SpO2 Av.3 % Min: 91 % Max: 100 % Supplemental O2: O2 Flow Rate (L/min): 3 L/min General appearance: No acute distress and cooperative HEENT: atraumatic, EOM's intact, CINDY Neck: Supple, with full range of motion. Trachea midline Respiratory: CTA with no wheeze, rhonchi or rales, diminished bases. No acute respiratory distress Cardiovascular: Regular rate and rhythm with normal S1/S2 without murmurs, rubs or gallops. Abdomen: Soft, NTND, active bowel sounds Musculoskeletal: Left upper leg swelling and limited ROM, pain with movement, RLE wiggles toes but pain to right knee, knee immobilizer on dorsalis pedal pulses palpable bilaterally Skin: scab to right harrison healing with no erythema or drainage, left lateral hip and thigh with approximated incision with sergio, no drainage, diffuse ecchymosis Neurologic: Neurovascularly intact without any focal sensory/motor deficits. Lines: hoffman catheter in place, PIV Assessment 1. New right distal femur fracture 2. Recent left femur fx s/p repair 3. Normocytic anemia 4. Hyponatremia 5. COPD 6. HTN 7. HLD 8. Hx squamous cell carcinoma Plan Right distal femur fracture -s/p fall out of bed -appreciate ortho recs -continue hoffman for now -pain control and bowel regimen -NWB Recent left femur fracture s/p repair 09/25 -was currently in rehab -continue TDWB LLE per ortho 09/29 -sergio in place Normocytic anemia -appears baseline prior to recent admission around 12 -likely 2/2 OR and malnutrition Hyponatremia -likely due to hypovolemia with no signs of hypervolemia -give small 500cc bolus -recheck and trend HTN/HLD -lisinopril, coreg -Statin COPD -no acute exacerbation -continue PRN -am labs, replace lytes prn -increase activity -DVT prophylaxis: [x] Lovenox [] Heparin [] SCDs [x] Encourage ambulation [] Already on Anticoagulation Advance Directive: Full Code Discharge planning: TBD Liane Valero APRN - EXECUTIVE CHAIRMAN Division of Hospitalist Medicine Inpatient Medical Services PAGER: Perfect serve documented in this encounter [facility] Work Phone: 10-06-2021 Hospital Discharge instructions Esperanza Berry RN - 10/06/2021 12:05 PM EST Continuity of Care Form Patient Name: Adore Walter : 1935 Admit date: 10/01/2021 Discharge date: 10/06 Code Status Order: Full Code Advance Directives: Admitting Physician: Guillermo Grigsby MD PCP: Chris Arora DO Discharging Nurse: esperanza Discharging Hospital Unit/Room#: 146/1461 Discharging Unit Emergency Contact: Extended Emergency Contact Information Primary Emergency Contact: Popeye Walter [facility] Relation: Child Secondary Emergency Contact: Ketan Walter [facility] Relation: Spouse Past Surgical History: Past Surgical History: Procedure Laterality Date APPENDECTOMY BLADDER SUSPENSION LONG TIME AGO AT [facility] COLONOSCOPY EYE SURGERY Bilateral cataracts FEMUR FRACTURE SURGERY Left 09/25/2021 ORIF FRACTURE SURGERY Right right hip ORIF HYSTERECTOMY JAZMYNE with BSO JOINT REPLACEMENT bilateral knees IN DIETZ JOINT REPLACEMENT Left Left hip AT [facility] LARYNGOSCOPY 04/18. benign polyp MICROLARYNGOSCOPY W BIOPSY 08/31/2019 with excision lesion vocal cord DR VARGAS OTHER SURGICAL HISTORY 06/11/2021 Excision Left Leg Lesion with Intermediate Closure, Excision Left Neck Lesion with Intermediate Closure. 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 Presence of retained hardware Z96.9 OAB (overactive bladder) N32.81 Hydronephrosis, bilateral N13.30 Chronic obstructive pulmonary disease (HCC) J44.9 LV dysfunction I51.9 Essential hypertension I10 Ectopic cardiac beats I49.49 Thoracic aortic aneurysm, without rupture (HCC) I71.2 Periprosthetic fracture around internal prosthetic joint M97.9XXA Hypertensive urgency I16.0 Gait instability R26.81 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 Hyponatremia E87.1 Hyperglycemia R73.9 Faith-prosthetic femoral shaft fracture M97.8XXA, Z96.649 Isolation/Infection: Isolation No Isolation Patient Infection Status Infection Onset Added Last Indicated Last Indicated By Review Planned Expiration Resolved Resolved By None active Resolved COVID-19 (Rule Out) 10/01/21 10/01/21 10/01/21 COVID-19, Flu A/B, and RSV Combo (Ordered) 10/01/21 Rule-Out Test Resulted COVID-19 (Rule Out) 09/29/21 09/29/21 09/29/21 COVID-19 (Ordered) 09/29/21 Rule-Out Test Resulted Nurse Assessment: Last Vital Signs: BP 136/65 Pulse 87 Temp 98.7 F (37.1 C) (Temporal) Resp 24 SpO2 93% Last documented pain score (0-10 scale): Pain Level: 8 Last Weight: Wt Readings from Last 1 Encounters: 09/16/21 127 lb (57.6 kg) Mental Status: oriented and alert IV Access: - None Nursing Mobility/ADLs: Walking Dependent Transfer Dependent Bathing Assisted Dressing Assisted Toileting Assisted Feeding Assisted Financial Internship Assisted Med Delivery whole Wound Care Documentation and Therapy: Elimination: Continence: Bowel: No Bladder: No Urinary Catheter: Insertion Date: 10/01 Colostomy/Ileostomy/Ileal Conduit: No Date of Last BM: 10/06 Intake/Output Summary (Last 24 hours) at 10/06/2021 1200 Last data filed at 10/06/2021 0237 Gross per 24 hour Intake 1750 ml Output 1400 ml Net 350 ml I/O last 3 completed shifts: In: 1750 [P.O.:900; I.V.:850] Out: 2800 [Urine:2800] Safety Concerns: History of Falls (last 30 days) and At Risk for Falls Impairments/Disabilities: None Nutrition Therapy: Current Nutrition Therapy: - Oral Diet: General Routes of Feeding: Oral Liquids: Thin Liquids Daily Fluid Restriction: no Last Modified Barium Swallow with Video (Video Swallowing Test): not done Treatments at the Time of Hospital Discharge: Respiratory Treatments: Oxygen Therapy: is on oxygen at 2 L/min per nasal cannula. Ventilator: - No ventilator support Rehab Therapies: Physical Therapy and Occupational Therapy Weight Bearing Status/Restrictions: Touchdown weight bearing (10-25 lbs) only on right leg,NWB LLE Other Medical Equipment (for information only, NOT a DME order): hospital bed Other Treatments: Patient's personal belongings (please select all that are sent with patient): None RN SIGNATURE: CASE MANAGEMENT/SOCIAL WORK SECTION Inpatient Status Date: Readmission Risk Assessment Score: Readmission Risk Risk of Unplanned Readmission: 17 Discharging to Facility/ Agency Name: [facility] Address:[address] [place] [address] Fax: Dialysis Facility (if applicable) Name: Address: Dialysis Schedule: Phone: Fax: Furnace Installer/Chuck Wagon Driver signature: PHYSICIAN SECTION Prognosis: Fair Condition at Discharge: Stable Rehab Potential (if transferring to Rehab): Fair Recommended Labs or Other Treatments After Discharge: Hx of Left femur periprosthetic fracture s/p ORIF (09/25/20)--> Orthopedic following. Follow up in 1 week for incision check and staple removal Physician Certification: I certify the above information and transfer of Adore Walter is necessary for the continuing treatment of the diagnosis listed and that she requires [facility] for greater 30 days. Update Admission H&P: No change in H&P PHYSICIAN SIGNATURE: Nohemi Araiza MD - 10/02/2021 Ortho discharge instructions: -Nonweightbearing to right lower extremity in knee immobilizer. Touch down weight bearing to left lower extremity -Keep knee immobilizer open when in bed to prevent skin irritation -Ice to affected area. This will help with pain. -Elevate right lower extremity. This will help with swelling. -Take your medications as prescribed. -Follow-up outpatient with Dr. River in 1 week documented in this encounter [facility] Work Phone: 09-29-2021 History of Present illness Narrative Report called to Matty Cedeño RN. No further questions at this time. Transport here to get pt at this time as well. Report given to medic. Pt medicated for pain prior to transport to facility RN aware at facility. IV removed by day shift RN. All belongings taken with transport staff. Physical Therapy Facility/Department: [facility] TELEMETRY Daily Treatment Note NAME: Adore Walter : 1935 Date of Service: 09/29/2021 Discharge Recommendations: (facility based therapy) Assessment Body structures, Functions, Activity limitations: Decreased functional mobility ;Decreased ADL status;Decreased endurance;Decreased ROM;Decreased strength;Decreased balance;Increased pain Assessment: Pt precert for updated PT note. Pt present with the above deficits requiring mod assist for bed mobility and sit<>stand transfer and max assist for stand pivot transfer. Increase time to complete task. Dependent for posterior hygiene care. Rec facility based therapy upon discharge. REQUIRES PT FOLLOW UP: Yes Activity Tolerance Activity Tolerance: Patient limited by fatigue;Patient limited by pain;Patient limited by endurance Patient Diagnosis(es): The encounter diagnosis was Closed displaced comminuted fracture of shaft of left femur, initial encounter (HCC). has a past medical history of Chronic airway obstruction, not elsewhere classified, Essential hypertension, Hx of blood clots, Hydronephrosis, Hyperlipidemia, Osteoarthrosis, unspecified whether generalized or localized, unspecified site, Osteoporosis, unspecified, and Skin cancer. has a past surgical history that includes Appendectomy; Hysterectomy; bladder suspension; laryngoscopy; fracture surgery (Right); Colonoscopy; skin biopsy; Tonsillectomy; MICROLARYNGOSCOPY W BIOPSY (08/31/2019); joint replacement; joint replacement (Left); eye surgery (Bilateral); other surgical history (06/11/2021); and Femur fracture surgery (Left, 09/25/2021). Restrictions Restrictions/Precautions Restrictions/Precautions: Weight Bearing,Fall Risk Required Braces or Orthoses?: No Lower Extremity Weight Bearing Restrictions Left Lower Extremity Weight Bearing: Toe Touch Weight Bearing Position Activity Restriction Other position/activity restrictions: Per ortho surgery: OK for hip and knee ROM. Subjective General Chart Reviewed: Yes Additional Pertinent Hx: Prior L ROBBIN, R femur fracture with ORIF, and bilat TKA's Family / Caregiver Present: No Subjective Subjective: Pt in bed, HOB elevated and agreeable to PT. General Comment Comments: Pt precert for updated PT note. Pain Screening Patient Currently in Pain: Yes Pain Assessment Pain Assessment: 0-10 Pain Level: 8 Pain Type: Acute pain;Surgical pain Pain Location: Hip Pain Orientation: Left Objective Bed mobility Supine to Sit: Minimal assistance (assist with both LLE and trunk elevation) Sit to Supine: Minimal assistance (assist with diana LEs) Scooting: Moderate assistance (seated towards EOB) Comment: HOB elevated, bed rails and slide assist sheet used. Increase time secondary to pain. Cues for seqeuncing. Transfers Sit to Stand: Moderate Assistance Stand to sit: Moderate Assistance Bed to Chair: Maximum assistance (bed><BSC) Comment: x 4 reps; EOB x 3 and BSC x 1. trial 1-2 with walker and trial 3-4 with SCREEN PRINTING MACHINE LOADER UNLOADER directly infront of pt, max assist Balance Comments: static standing with FWW x 2 reps, compliant with TTWB LLE, min assist for balance, dependent for posterior hygiene, pt able to stand for approximately 1-2 mins. AM-PAC Score AM-PAC Inpatient Mobility Raw Score : 8 (09/29/211339) AM-PAC Inpatient T-Scale Score : 28.52 (09/29/211339) Mobility Inpatient CMS 0-100% Score: 86.62 (09/29/211339) Mobility Inpatient CMS G-Code Modifier : CM (09/29/211339) Goals Short term goals Time Frame for Short term goals: 2 weeks Short term goal 1: Perform bed mobility SBA - progressing Short term goal 2: Perform transfers Min assist with TTWB L LE - progressing Short term goal 3: Ambulate 15 ft with TTWB L LE Min assist - progressing Short term goal 4: L LE AROM: WNL - progressing Patient Goals Patient goals : To go to rehab Plan Plan Times per week: 5-7 Plan weeks: 2 Specific instructions for Next Treatment: Increasing ROM L LE. Progressive ambulation Current Treatment Recommendations: Strengthening,Endurance Training,Transfer Training,ROM,ADL/Self-care Training,Balance Training,IADL Training,Gait Training,Functional Mobility Training,Stair training,Safety Education & Training,Patient/Caregiver Education & Training,Equipment Evaluation, Education, & procurement Safety Devices Type of devices: Call light within reach,Patient at risk for falls,Left in bed,Gait belt,Nurse notified Restraints Initially in place: No Therapy Time Individual Concurrent Group Co-treatment Time In 1259 Time Out 1327 Minutes 28 Timed Code Treatment Minutes: 20 Minutes (fa) Variance: 8 (BS) Kinsey Messina PTA Images from the original note were not included. [facility] Wound Care Progress Note Adore Walter AGE: 86 y.o. GENDER: female : 1935 Subjective: HISTORY of PRESENT ILLNESS HPI Adore Walter is a 86 y.o. female who presents for a wound re-evaluation. History of Wound Context: Patient presents after falling at home. Patient fell on left side, left femur fracture. Patient had surgical intervention this morning to left hip/leg. PAST MEDICAL HISTORY Diagnosis Date Chronic airway obstruction, not elsewhere classified Essential hypertension 12/14/2020 Hx of blood clots lower extremity- over 50 yrs ago Hydronephrosis BOTH KIDNEYS AND SCHEDULED FOR THE PROCEDURE / SURGERY ON 01/03/2019 Hyperlipidemia Osteoarthrosis, unspecified whether generalized or localized, unspecified site Osteoporosis, unspecified Skin cancer skin- L&R arms,face, bilat legs, back PAST SURGICAL HISTORY Past Surgical History: Procedure Laterality Date APPENDECTOMY BLADDER SUSPENSION LONG TIME AGO AT [facility] COLONOSCOPY EYE SURGERY Bilateral cataracts FEMUR FRACTURE SURGERY Left 09/25/2021 ORIF FRACTURE SURGERY Right right hip ORIF HYSTERECTOMY JAZMYNE with BSO JOINT REPLACEMENT bilateral knees IN DIETZ JOINT REPLACEMENT Left Left hip AT [facility] LARYNGOSCOPY 04/18. benign polyp MICROLARYNGOSCOPY W BIOPSY 08/31/2019 with excision lesion vocal cord DR VARGAS OTHER SURGICAL HISTORY 06/11/2021 Excision Left Leg Lesion with Intermediate Closure, Excision Left Neck Lesion with Intermediate Closure. Dr Cuba SKIN BIOPSY TONSILLECTOMY FAMILY HISTORY Family History Problem Relation Age of Onset Cancer Father skin cancer SOCIAL HISTORY Social History Tobacco Use Smoking status: Former Smoker Packs/day: 0.50 Years: 35.00 Pack years: 17.50 Types: Cigarettes Start date: 1956 Quit date: 1991 Years since quittin.1 Smokeless tobacco: Never Used Vaping Use Vaping Use: Never used Substance Use Topics Alcohol use: Yes Alcohol/week: 0.0 standard drinks Comment: [facility] Drug use: Never Comment: Caffeine use: up to 4 cups of coffee per day ALLERGIES No Known Allergies MEDICATIONS No current facility-administered medications on file prior to encounter. Current Outpatient Medications on File Prior to Encounter Medication Sig Dispense Refill alendronate (FOSAMAX) 70 MG tablet Take 1 tablet by mouth every 7 days 12 tablet 0 simvastatin (ZOCOR) 10 MG tablet Take 1 tablet by mouth nightly 90 tablet 0 carvedilol (COREG) 12.5 MG tablet Take 1 tablet by mouth daily 90 tablet 0 acetaminophen (TYLENOL) 500 MG tablet Take 500 mg by mouth every 6 hours as needed for Pain Handicap Placard MISC 1 each by Does not apply route daily 1 each 0 REVIEW OF SYSTEMS Pertinent items are noted in HPI. Objective: BP 109/60 Pulse 63 Temp 97.8 F (36.6 C) (Temporal) Resp 18 SpO2 94% PHYSICAL EXAM General Appearance: alert and oriented to person, place and time Skin: warm and dry. 1. Left lower leg- laceration. Wound measures 0.2x0.2x0.5cm. Wound bed with pink tissue and small are of slough. Periwound intact. 2. Right lower leg- abrasion. Wound measures [id number]. Wound scabbed. No drainage noted. Periwound. Left knee: Incision well approximated 18x0.1x0cm with 20 sergio. Dried blood noted. Pulmonary/Chest: respirations easy, no distress noted. Extremities: no cyanosis, no clubbing and 1 + edema- bilateral lower legs. LABS CBC: Lab Results Component Value Date WBC 8.2 09/28/2021 WBC 6.2 11/11/2015 HGB 8.5 09/28/2021 HCT 26.1 09/28/2021 MCV 93.9 09/28/2021 PLT 224 09/28/2021 BMP: Lab Results Component Value Date NA 131 09/28/2021 K 4.7 09/28/2021 CL 101 09/28/2021 CO2 30 09/28/2021 BUN 31 09/28/2021 CREATININE 0.73 09/28/2021 PT/INR: Lab Results Component Value Date PROTIME 11.3 09/25/2021 INR 1.1 09/25/2021 Prealbumin: No results found for: PREALBUMIN Albumin: Lab Results Component Value Date LABALBU 4.0 09/11/2021 Sed Rate:No results found for: SEDRATE Micro: No results found for: BC Assessment/Plan: 1. Left lower leg- laceration -Cleanse with NS, apply mesalt, dry clean dressing daily and PRN 2. Right lower leg- abrasion. -Cleanse with NS, apply adaptic, dry clean dressing daily and PRN 3. Left lateral knee- surgical - cleanse with NS, apply adaptic, dry clean dressing daily and PRN Nutritional support Follow up with wound care Any questions or concerns please vocera or perfect serve "wound care". Thank you for the consult! I personally obtained the kang and critical portions of the history and physical exam. I reviewed the labs, imaging studies, and electronic medical record. I reviewed the chart documentation and discussed the patient with treatment team members. I have edited the note to reflect my clinical findings and my assessment and plan. Please note, the time of this note does not reflect the time I saw this patient today, but the time of this documentaton. Portions of this note including HPI, ROS, impression/plan, and examination may have been copied forward from admission to today as to provide important historical information essential in contributing to medical decision making. Documentation has been reviewed and edited as necessary to support clinical decision making for today's visit and to reflect my own independent evaluation of this patient. Decision making for today's visit and to reflect my own independent evaluation of this patient. Images from the original note were not included. Department of Orthopedic Surgery Progress Note SUBJECTIVE: Patient is s/p ORIF left interprosthetic femur fracture on 09/25. Patient resting in bed. Pain is overall well controlled. She states plan is to discharged to SNF. OBJECTIVE: LEFT Lower extremity: Bandages C/D/I +SILT Jackson/Sa/SP/DP/Tib distributions +DF/EHL/PF motor function intact DP palpable Negative Solo's sign, no calf tenderness PLAN: -Continue TDWB LLE. Ok for knee ROM as tolerated. -Dressings: change as needed for saturation. If dry, ok to leave open to air. Spoke to patient regarding the post operative plan. Discharge instructions and follow up were explained. We discussed the natural course of injury and expectations moving forward. Will plan for 2v left femur at facility 2 wks post op. Patient voiced their understanding and is agreeable with the current plan. All questions were answered. Patient was advised to contact our office with any questions or concerns. Dante Rai PA-C Orthopedic Surgery Occupational Therapy Occupational Therapy Initial Assessment Date: 09/29/2021 Patient Name: Adore Walter : 1935 Date of Service: 09/29/2021 Discharge Recommendations: (Facility based therapies) Assessment Performance deficits / Impairments: Decreased functional mobility ;Decreased endurance;Decreased coordination;Decreased ADL status;Decreased posture;Decreased balance;Decreased ROM;Decreased strength;Decreased safe awareness;Decreased high-level IADLs Assessment: Pt presents with the above deficits and requires min assist with bed mobility, mod assist for transfers and standing balance, and max assist for ADL's. Pt would benefit from continued therapies to maximize potential. Recommend facility based therapies at discharge. Prognosis: Fair Decision Making: Medium Complexity REQUIRES OT FOLLOW UP: Yes Activity Tolerance Activity Tolerance: Patient limited by fatigue;Patient limited by pain Safety Devices Safety Devices in place: Yes Type of devices: All fall risk precautions in place;Call light within reach;Gait belt;Patient at risk for falls;Left in bed Restraints Initially in place: No Patient Diagnosis(es): The encounter diagnosis was Closed displaced comminuted fracture of shaft of left femur, initial encounter (HCC). has a past medical history of Chronic airway obstruction, not elsewhere classified, Essential hypertension, Hx of blood clots, Hydronephrosis, Hyperlipidemia, Osteoarthrosis, unspecified whether generalized or localized, unspecified site, Osteoporosis, unspecified, and Skin cancer. has a past surgical history that includes Appendectomy; Hysterectomy; bladder suspension; laryngoscopy; fracture surgery (Right); Colonoscopy; skin biopsy; Tonsillectomy; MICROLARYNGOSCOPY W BIOPSY (08/31/2019); joint replacement; joint replacement (Left); eye surgery (Bilateral); other surgical history (06/11/2021); and Femur fracture surgery (Left, 09/25/2021). Restrictions Restrictions/Precautions Restrictions/Precautions: Weight Bearing,Fall Risk Required Braces or Orthoses?: No Lower Extremity Weight Bearing Restrictions Left Lower Extremity Weight Bearing: Toe Touch Weight Bearing Position Activity Restriction Other position/activity restrictions: Per ortho surgery: OK for hip and knee ROM. Subjective General Chart Reviewed: Yes Patient assessed for rehabilitation services?: Yes Family / Caregiver Present: No Diagnosis: Left distal femur fx S/P Left LE ORIF distal femur on 09.25.21. Subjective Subjective: Pt in bed. Agreeable to OT. General Comment Comments: Pt presents S/P fall while getting out of her car....lost footing and rolled down into the ditch. Patient Currently in Pain: Yes (Left LE 15/10) Social/Functional History Social/Functional History Lives With: () Type of Home: House (Bed & Bath (walk in shower) 1st floor) Home Layout: Two level Home Access: Stairs to enter without rails Entrance Stairs - Number of Steps: 2 steps (no hand rails) + 4 steps (1 hand rail) Bathroom Shower/Tub: Walk-in shower Bathroom Toilet: Standard Home Equipment: Cane Receives Help From: Family ADL Assistance: Independent Homemaking Assistance: Independent Ambulation Assistance: Independent Transfer Assistance: Independent Active Size Cutter: No Patient's Size Cutter Info: Mode of Transportation: Car Occupation: Retired Additional Comments: Indep with ADL's. Indep with cooking & cleaning. Assist with laundry (basement). drives. Amb with cane. Objective Orientation Overall Orientation Status: Within Functional Limits (Ox3) Balance Sitting Balance: Supervision (good Static sitting balance at EOB with supervision.) Standing Balance: Moderate assistance (fair -) Standing Balance Comment: Static standing balance with bilateral UE support and mod assist. Static standing ~20-30 seconds. Pt able to maintain left LE TDWB status with verbal cues. ADL LE Dressing: (Max assist to don bilateral socks.) Tone RUE RUE Tone: Normotonic Tone LUE LUE Tone: Normotonic Bed mobility Supine to Sit: Minimal assistance (for left LE) Sit to Supine: Minimal assistance (for Left LE) Scooting: Minimal assistance Comment: Verbal cues for correct hand placement, sequencing, and safety awareness. Transfers Sit to stand: Moderate assistance Stand to sit: Moderate assistance Transfer Comments: Verbal cues for correct hand placement, sequencing, and safety awareness. Pt aware and verbalized Left LE TDWB status. Sit to stand twice: first time unable to come to a full stand, 2nd time with mod assist, pt was able to come to a full stand. Vision - Basic Assessment Prior Vision: (Pt wears glasses all the time.) Cognition Overall Cognitive Status: WFL Sensation Overall Sensation Status: WFL (Pt denies any numbness & tingling in bilateral UE's. Intact to light touch.) LUE AROM (degrees) LUE AROM : (shoulder flex to 90 secondary to arthritis, elbow distally WFL) RUE AROM (degrees) RUE AROM : WFL LUE Strength Gross LUE Strength: (shoulder flex~2+/5, elbow~3+/5) RUE Strength Gross RUE Strength: (3+/5) Plan Plan Times per week: 3-5x/wk Plan weeks: 4 weeks Current Treatment Recommendations: Strengthening,Patient/Caregiver Education & Training,Home Management Training,ROM,Balance Training,Functional Mobility Training,Endurance Training,Safety Education & Training,Self-Care / ADL OutComes Score AM-PAC Daily Activity Inpatient How much help for putting on and taking off regular lower body clothing?: Total How much help for Bathing?: A Lot How much help for Toileting?: Total How much help for putting on and taking off regular upper body clothing?: A Little How much help for taking care of personal grooming?: A Little How much help for eating meals?: A Little AM-PAC Inpatient Daily Activity Raw Score: 13 AM-PAC Inpatient ADL T-Scale Score : 32.03 ADL Inpatient CMS 0-100% Score: 63.03 ADL Inpatient CMS G-Code Modifier : CL AM-PAC Score AM-PAC Inpatient Daily Activity Raw Score: 13 (09/29/21 1106) AM-PAC Inpatient ADL T-Scale Score : 32.03 (09/29/21 1106) ADL Inpatient CMS 0-100% Score: 63.03 (09/29/21 1106) ADL Inpatient CMS G-Code Modifier : CL (09/29/21 1106) Goals Short term goals Time Frame for Short term goals: 4 weeks Short term goal 1: LE dressing with/without use of AE prn with min assist. Short term goal 2: BSC transfer with min assist. Short term goal 3: Dynamic sitting balance at EOB with supervision during bilateral UE task x 5-8 mins. Patient Goals Patient goals : To go for further therapies. Therapy Time Individual Concurrent Group Co-treatment Time In 1015 Time Out 1040 Minutes 25 Timed Code Treatment Minutes: 15 Minutes (funct act -1) Goals and/or treatment plan was established in collaboration with patient/family/other representatives. Patient's Occupational Therapy Plan [facility] This provider wore an N95, face shield, and gloves for the duration of the session with this pt. iLane Webb MS, OTR/L Images from the original note were not included. [facility] Progress Note Adore Walter : 1935(86 y.o.) Date: 09/29/2021 Subjective: CC: left hip pain Pt continues to endorse left hip pain, she has noticed improvement after adjustment in pain regimen She denies SOB. Continues to endorse intermittent left sided CP which is worse with movement. She states she thinks she must have hurt it with her fall Large BM this AM. Scheduled Meds: bisacodyl 10 mg Rectal Daily lidocaine 1 patch TransDERmal Daily enoxaparin 40 mg SubCUTAneous Daily polyethylene glycol 17 g Oral Daily docusate sodium 100 mg Oral BID sodium chloride flush 5-40 mL IntraVENous 2 times per day carvedilol 12.5 mg Oral Daily with breakfast simvastatin 10 mg Oral Nightly lisinopril 5 mg Oral Daily Continuous Infusions: sodium chloride PRN Meds:oxyCODONE OR oxyCODONE, sodium chloride flush, sodium chloride, ondansetron OR ondansetron, polyethylene glycol, acetaminophen OR acetaminophen, hydrALAZINE Review of Systems As above Interval Pertinent History: Social History Tobacco Use Smoking status: Former Smoker Packs/day: 0.50 Years: 35.00 Pack years: 17.50 Types: Cigarettes Start date: 1956 Quit date: 1991 Years since quittin.1 Smokeless tobacco: Never Used Substance Use Topics Alcohol use: Yes Alcohol/week: 0.0 standard drinks Comment: obdulia bullard Objective: Patient Vitals for the past 24 hrs: BP Temp Temp src Pulse Resp SpO2 09/29/21 0839 109/60 97.8 F (36.6 C) Temporal 63 18 94 % 09/29/21 0346 (!) 113/57 98.9 F (37.2 C) Temporal 75 94 % 09/28/21 1624 (!) 105/49 97.4 F (36.3 C) Temporal 65 18 95 % Average, Min, and Max for last 24 hours Vitals: TEMPERATURE: Temp Av F (36.7 C) Min: 97.4 F (36.3 C) Max: 98.9 F (37.2 C) RESPIRATIONS RANGE: Resp Av Min: 18 Max: 18 PULSE RANGE: Pulse Av.7 Min: 63 Max: 75 BLOOD PRESSURE RANGE: Systolic (24hrs), Av , Min:105 , Max:113 ; Diastolic (24hrs), Av, Min:49, Max:60 PULSE OXIMETRY RANGE: SpO2 Av.3 % Min: 94 % Max: 95 % No intake/output data recorded. Physical Exam Vitals and nursing note reviewed. Constitutional: General: She is not in acute distress. Comments: Lying comfortably in bed Eyes: General: No scleral icterus. Cardiovascular: Rate and Rhythm: Normal rate and regular rhythm. Pulmonary: Effort: No respiratory distress. Breath sounds: No wheezing or rhonchi. Abdominal: Palpations: Abdomen is soft. Tenderness: There is no abdominal tenderness. Musculoskeletal: Comments: Post op edema to R thigh Skin: General: Skin is warm and dry. Comments: Left hip dressing clean and intact Neurological: Mental Status: She is alert. Comments: Speech is clear, following commands, answering questions appropriately Psychiatric: Mood and Affect: Mood normal. Behavior: Behavior normal. Lab Results Component Value Date WBC 8.2 09/28/2021 HGB 8.5 (L) 09/28/2021 HCT 26.1 (L) 09/28/2021 MCV 93.9 09/28/2021 PLT 224 09/28/2021 Lab Results Component Value Date NA 131 09/28/2021 K 4.7 09/28/2021 CL 101 09/28/2021 CO2 30 09/28/2021 BUN 31 09/28/2021 CREATININE 0.73 09/28/2021 GLUCOSE 99 09/28/2021 CALCIUM 8.5 09/28/2021 No results found for: LABA1C Additional results of the last 24 hours have been reviewed. Assessment and Plan: Principal Problem: Periprosthetic fracture around internal prosthetic joint Active Problems: Hypertensive urgency Gait instability Intractable neuropathic pain of left knee Hyponatremia Hyperglycemia Resolved Problems: * No resolved hospital problems. * L periprosthetic femur fracture s/p repair 09/25 HTN urgency, resolved Mild hyponatremia Chronic constipation, resolved Mild leukocytosis, suspect stress induced, resolved Acute normocytic anemia, suspect perioperative losses/stress, stable/improving LLE lac, RLE abrasion - local care. Superficial LLE wound culture reviewed - doubt active infection. Discussed with wound care Left chest wall pain - rib series negative. Suspect MSK pain. Lidocaine patch. Suspicion for PE relatively low as pain appears musculoskeletal, is reproducible on exam, and not associated with SOB or tachycardia. Appreciate orthopedic surgery recommendations. TDWB status LLE. Pt agreeable to SNF on DC, pending facility acceptance. Continue scheduled bowel regimen and pain regimen PRN. DVTProphylaxis: lovenox 40 q 24hr - creatinine clearance >30- continue for ~14-21 days post op pending improvement in mobility Disposition: awaiting insurance auth for facility. I spent over 51% of total time providing counseling or incoordination of care: > 25 minutes discussed with nurse, discussed with the patient, I personally examined the patient and I personally reviewed chart, data, labs radiology reports 6AM-6PM please page: 6PM-6AM please page: [facility] [place], [place] Internal Medicine Images from the original note were not included. [facility] Progress Note Adore A Marta : 1935(86 y.o.) Date: 09/28/2021 Subjective: CC: left hip pain Pt continues to endorse left hip pain She states no CP at rest but has some left sided CP with certain movements Denies SOB Passing gas, no BM yet. No abdominal pain Scheduled Meds: bisacodyl 10 mg Rectal Daily lidocaine 1 patch TransDERmal Daily enoxaparin 40 mg SubCUTAneous Daily polyethylene glycol 17 g Oral Daily docusate sodium 100 mg Oral BID sodium chloride flush 5-40 mL IntraVENous 2 times per day carvedilol 12.5 mg Oral Daily with breakfast simvastatin 10 mg Oral Nightly lisinopril 5 mg Oral Daily Continuous Infusions: sodium chloride PRN Meds:oxyCODONE OR oxyCODONE, sodium chloride flush, sodium chloride, ondansetron OR ondansetron, polyethylene glycol, acetaminophen OR acetaminophen, hydrALAZINE Review of Systems As above Interval Pertinent History: Social History Tobacco Use Smoking status: Former Smoker Packs/day: 0.50 Years: 35.00 Pack years: 17.50 Types: Cigarettes Start date: 1956 Quit date: 1991 Years since quittin.1 Smokeless tobacco: Never Used Substance Use Topics Alcohol use: Yes Alcohol/week: 0.0 standard drinks Comment: obdulia bullard Objective: Patient Vitals for the past 24 hrs: BP Temp Temp src Pulse Resp SpO2 09/28/21 0801 (!) 111/52 99.1 F (37.3 C) Temporal 82 18 94 % 09/28/21 0550 (!) 116/56 96.8 F (36 C) Temporal 68 16 95 % 09/27/21 1718 117/73 98.1 F (36.7 C) Temporal 69 18 100 % Average, Min, and Max for last 24 hours Vitals: TEMPERATURE: Temp Av F (36.7 C) Min: 96.8 F (36 C) Max: 99.1 F (37.3 C) RESPIRATIONS RANGE: Resp Av.3 Min: 16 Max: 18 PULSE RANGE: Pulse Av Min: 68 Max: 82 BLOOD PRESSURE RANGE: Systolic (24hrs), Av , Min:111 , Max:117 ; Diastolic (24hrs), Av, Min:52, Max:73 PULSE OXIMETRY RANGE: SpO2 Av.3 % Min: 94 % Max: 100 % No intake/output data recorded. Physical Exam Vitals and nursing note reviewed. Constitutional: General: She is not in acute distress. Comments: Lying comfortably in bed Eyes: General: No scleral icterus. Cardiovascular: Rate and Rhythm: Normal rate and regular rhythm. Pulmonary: Effort: No respiratory distress. Breath sounds: No wheezing or rhonchi. Abdominal: Palpations: Abdomen is soft. Tenderness: There is no abdominal tenderness. Musculoskeletal: Comments: BLE with larissa wraps in place Skin: General: Skin is warm and dry. Comments: Left hip dressing saturated Neurological: Mental Status: She is alert. Comments: Speech is clear, following commands, answering questions appropriately Psychiatric: Mood and Affect: Mood normal. Behavior: Behavior normal. Lab Results Component Value Date WBC 8.2 09/28/2021 HGB 8.5 (L) 09/28/2021 HCT 26.1 (L) 09/28/2021 MCV 93.9 09/28/2021 PLT 224 09/28/2021 Lab Results Component Value Date NA 131 09/28/2021 K 4.7 09/28/2021 CL 101 09/28/2021 CO2 30 09/28/2021 BUN 31 09/28/2021 CREATININE 0.73 09/28/2021 GLUCOSE 99 09/28/2021 CALCIUM 8.5 09/28/2021 No results found for: LABA1C Additional results of the last 24 hours have been reviewed. Assessment and Plan: Principal Problem: Periprosthetic fracture around internal prosthetic joint Active Problems: Hypertensive urgency Gait instability Intractable neuropathic pain of left knee Hyponatremia Hyperglycemia Resolved Problems: * No resolved hospital problems. * L periprosthetic femur fracture s/p repair 09/25 HTN urgency, resolved Mild hyponatremia Chronic constipation Mild leukocytosis, suspect stress induced, resolved Acute normocytic anemia, suspect perioperative losses/stress, stable/improving LLE lac, RLE abrasion - local care. Superficial LLE wound culture reviewed - doubt active infection. Discussed with wound care Left chest wall pain - rib series negative. Suspect MSK pain. Pt understands that if SOB develops then we will obtain CTA chest to r/o PE. Lidocaine patch. Suspicion for PE relatively low as pain appears musculoskeletal and is reproducible on exam Appreciate orthopedic surgery recommendations. TDWB status LLE. Pt agreeable to SNF on DC, pending facility acceptance. Continue scheduled bowel regimen, increase today. Increase oxycodone dose today to attempt better pain control. RN to contact orthopedic surgery team regarding dressing. DVTProphylaxis: lovenox 40 q 24hr - creatinine clearance >30 Disposition: awaiting insurance auth for facility. I spent over 51% of total time providing counseling or incoordination of care: > 35 minutes discussed with nurse, discussed with the patient, I personally examined the patient and I personally reviewed chart, data, labs radiology reports 6AM-6PM please page: 6PM-6AM please page: [facility] [place], [place] Internal Medicine Physical Therapy Facility/Department: [facility] TELEMETRY Daily Treatment Note NAME: Adore Walter : 1935 Date of Service: 09/27/2021 Discharge Recommendations: (facility based therapy) PT Equipment Recommendations Equipment Needed: No Assessment Body structures, Functions, Activity limitations: Decreased functional mobility ;Decreased ADL status;Decreased endurance;Decreased ROM;Decreased strength;Decreased balance;Increased pain Assessment: Pt progressing towards goal this session. Continues to be limited by pain and impaired endurance. Good recall of safety and TTWB LLE precautions. with current functional status and pain level, pt is unsafe for return home. Continue recommending facility based therapy at discharge. Specific instructions for Next Treatment: Increasing ROM L LE. Progressive ambulation Prognosis: Good Decision Making: Low Complexity PT Education: Goals;PT Role;Plan of Care;General Safety;Weight-bearing Education;Precautions Patient Education: TTWB L LE REQUIRES PT FOLLOW UP: Yes Activity Tolerance Activity Tolerance: Patient limited by fatigue;Patient limited by pain;Patient limited by endurance Patient Diagnosis(es): The encounter diagnosis was Closed displaced comminuted fracture of shaft of left femur, initial encounter ([facility]). has a past medical history of Chronic airway obstruction, not elsewhere classified, Essential hypertension, Hx of blood clots, Hydronephrosis, Hyperlipidemia, Osteoarthrosis, unspecified whether generalized or localized, unspecified site, Osteoporosis, unspecified, and Skin cancer. has a past surgical history that includes Appendectomy; Hysterectomy; bladder suspension; laryngoscopy; fracture surgery (Right); Colonoscopy; skin biopsy; Tonsillectomy; MICROLARYNGOSCOPY W BIOPSY (08/31/2019); joint replacement; joint replacement (Left); eye surgery (Bilateral); other surgical history (06/11/2021); and Femur fracture surgery (Left, 09/25/2021). Restrictions Restrictions/Precautions Restrictions/Precautions: Weight Bearing,Fall Risk,General Precautions Required Braces or Orthoses?: No Lower Extremity Weight Bearing Restrictions Left Lower Extremity Weight Bearing: Toe Touch Weight Bearing Position Activity Restriction Other position/activity restrictions: Per ortho surgery: OK for hip and knee ROM. Subjective General Chart Reviewed: Yes Additional Pertinent Hx: Prior L ROBBIN, R femur fracture with ORIF, and bilat TKA's Response To Previous Treatment: Patient with no complaints from previous session. Family / Caregiver Present: No Subjective Subjective: Pt supine in recliner, pleasant and agreeable to PT Pain Screening Patient Currently in Pain: Yes Pain Assessment Pain Assessment: 0-10 Pain Level: 7 (higher with mobility) Patient's Stated Pain Goal: No pain Pain Type: Acute pain Pain Location: Hip Pain Orientation: Left Vital Signs Patient Currently in Pain: Yes Orientation Orientation Overall Orientation Status: Within Normal Limits Cognition Cognition Overall Cognitive Status: WNL Objective Transfers Sit to Stand: Moderate Assistance Stand to sit: Minimal Assistance Comment: Mod A sit > stand for elevation. increased time required for full stand Ambulation Ambulation?: Yes WB Status: TTWB L LE More Ambulation?: No Ambulation 1 Surface: level tile Device: Rolling Walker Assistance: Moderate assistance Quality of Gait: Pt with good recall of TTWB LLE from previous session. Hop too gait pattern, heavy BLE reliance on RW. Able to perform 4 hops advancing ~1 inch each hop. once forward required chair follow for sitting. Gait Deviations: Slow Kerry;Decreased step length;Decreased step height Distance: 2 ft foward Stairs/Curb Stairs?: No Balance Posture: Good Sitting - Static: Good Sitting - Dynamic: Good Standing - Static: Fair Standing - Dynamic: Fair AROM RLE (degrees) RLE AROM: WNL AROM LLE (degrees) LLE AROM : WFL LLE General AROM: grossly decreased approx 80% Strength RLE Strength RLE: WFL AM-PAC Score [facility] Inpatient Mobility Raw Score : 9 (09/27/211543) [facility] Inpatient T-Scale Score : 30.55 (09/27/211543) Mobility Inpatient CMS 0-100% Score: 81.38 (09/27/211543) Mobility Inpatient CMS G-Code Modifier : CM (09/27/211543) Goals Short term goals Time Frame for Short term goals: 2 weeks Short term goal 1: Perform bed mobility SBA - not addressed Short term goal 2: Perform transfers Min assist with TTWB L LE - progressing Short term goal 3: Ambulate 15 ft with TTWB L LE Min assist - progressing Short term goal 4: L LE AROM: WNL - progressing Patient Goals Patient goals : To go to rehab Plan Plan Times per week: 5-7 Plan weeks: 2 Specific instructions for Next Treatment: Increasing ROM L LE. Progressive ambulation Current Treatment Recommendations: Strengthening,Endurance Training,Transfer Training,ROM,ADL/Self-care Training,Balance Training,IADL Training,Gait Training,Functional Mobility Training,Stair training,Safety Education & Training,Patient/Caregiver Education & Training,Equipment Evaluation, Education, & procurement Safety Devices Type of devices: Call light within reach,Patient at risk for falls,Left in chair Restraints Initially in place: No Therapy Time Individual Concurrent Group Co-treatment Time In 1452 Time Out 1511 Minutes 19 Timed Code Treatment Minutes: (1 FA) This therapist was wearing an N95 mask, goggles, and gloves for entire patient encounter. Patient s Physical Therapy Plan of Care supervision is transferred to [facility] Rehab Department Physical Therapist. April Lemus PT Images from the original note were not included. [facility] Progress Note Adore Walter : 1935(86 y.o.) Date: 09/27/2021 Subjective: HPI CC: left hip pain Pt states that her hip hurts this morning She also describes sneezing yesterday with sudden onset left sided chest pain She denies SOB Passing gas, no N/V. Still no BM, reluctant for more aggressive bowel regimen Scheduled Meds: lidocaine 1 patch TransDERmal Daily enoxaparin 40 mg SubCUTAneous Daily polyethylene glycol 17 g Oral Daily docusate sodium 100 mg Oral BID sodium chloride flush 5-40 mL IntraVENous 2 times per day carvedilol 12.5 mg Oral Daily with breakfast simvastatin 10 mg Oral Nightly lisinopril 5 mg Oral Daily Continuous Infusions: sodium chloride PRN Meds:oxyCODONE OR oxyCODONE, sodium chloride flush, sodium chloride, ondansetron OR ondansetron, polyethylene glycol, acetaminophen OR acetaminophen, hydrALAZINE, ketorolac Review of Systems As above Interval Pertinent History: Social History Tobacco Use Smoking status: Former Smoker Packs/day: 0.50 Years: 35.00 Pack years: 17.50 Types: Cigarettes Start date: 1956 Quit date: 1991 Years since quittin.1 Smokeless tobacco: Never Used Substance Use Topics Alcohol use: Yes Alcohol/week: 0.0 standard drinks Comment: obdulia bullard Objective: Patient Vitals for the past 24 hrs: BP Temp Temp src Pulse Resp SpO2 09/27/21 0936 (!) 120/53 Temporal 81 09/27/21 0454 (!) 140/61 97.4 F (36.3 C) Temporal 72 16 96 % 09/26/21 1651 (!) 124/52 96.2 F (35.7 C) Temporal 79 16 95 % Average, Min, and Max for last 24 hours Vitals: TEMPERATURE: Temp Av.8 F (36 C) Min: 96.2 F (35.7 C) Max: 97.4 F (36.3 C) RESPIRATIONS RANGE: Resp Av Min: 16 Max: 16 PULSE RANGE: Pulse Av.3 Min: 72 Max: 81 BLOOD PRESSURE RANGE: Systolic (24hrs), Av , Min:120 , Max:140 ; Diastolic (24hrs), Av, Min:52, Max:61 PULSE OXIMETRY RANGE: SpO2 Av.5 % Min: 95 % Max: 96 % I/O last 3 completed shifts: In: 250 [P.O.:250] Out: 825 [Urine:825] Physical Exam Vitals and nursing note reviewed. Constitutional: General: She is not in acute distress. Comments: Sitting up in chair Eyes: General: No scleral icterus. Cardiovascular: Rate and Rhythm: Normal rate and regular rhythm. Pulmonary: Effort: No respiratory distress. Breath sounds: No wheezing or rhonchi. Abdominal: Palpations: Abdomen is soft. Musculoskeletal: Comments: BLE with larissa wraps in place Reproducible CP in L upper chest wall Skin: General: Skin is warm and dry. Neurological: Mental Status: She is alert. Comments: Speech is clear, following commands, answering questions appropriately Psychiatric: Mood and Affect: Mood normal. Behavior: Behavior normal. Lab Results Component Value Date WBC 9.5 09/27/2021 HGB 8.3 (L) 09/27/2021 HCT 24.9 (L) 09/27/2021 MCV 94.5 09/27/2021 PLT 199 09/27/2021 Lab Results Component Value Date NA 132 09/27/2021 K 4.1 09/27/2021 CL 104 09/27/2021 CO2 27 09/27/2021 BUN 34 09/27/2021 CREATININE 0.77 09/27/2021 GLUCOSE 102 09/27/2021 CALCIUM 8.6 09/27/2021 No results found for: LABA1C Additional results of the last 24 hours have been reviewed. Assessment and Plan: Principal Problem: Periprosthetic fracture around internal prosthetic joint Active Problems: Hypertensive urgency Gait instability Intractable neuropathic pain of left knee Hyponatremia Hyperglycemia Resolved Problems: * No resolved hospital problems. * L periprosthetic femur fracture s/p repair 09/25 HTN urgency, resolved Mild hyponatremia Chronic constipation Mild leukocytosis, suspect stress induced, resolved Acute normocytic anemia, suspect perioperative losses/stress LLE lac, RLE abrasion - local care. Superficial LLE wound culture reviewed - doubt active infection. Discussed with wound care Appreciate orthopedic surgery recommendations. TDWB status LLE. Pt agreeable to SNF on DC, pending facility acceptance. Continue scheduled bowel regimen. Left chest wall pain - check rib series. Pt understands that if SOB develops then we will obtain CTA chest to r/o PE. Lidocaine patch. Suspicion for PE relatively low as pain appears musculoskeletal and is reproducible on exam DVTProphylaxis: lovenox 40 q 24hr - creatinine clearance >30 Disposition: awaiting insurance auth for facility. I spent over 51% of total time providing counseling or incoordination of care: > 25 minutes discussed with nurse, discussed with the patient, I personally examined the patient and I personally reviewed chart, data, labs radiology reports 6AM-6PM please page: 6PM-6AM please page: [facility] [place], [place] Internal Medicine Images from the original note were not included. Department of Orthopedic Surgery Progress Note SUBJECTIVE: Patient resting comfortably in bed. Denies any new pains. Reports physical therapy was rough yesterday. I discussed with her expectations and postoperative care. patient agreed with plan OBJECTIVE: General: alert and oriented to person, place and time, well-developed and well-nourished, in no acute distress VITALS: BP (!) 140/61 Pulse 72 Temp 97.4 F (36.3 C) (Temporal) Resp 16 SpO2 96% LEFT Lower extremity: LARISSA bandage C/D/I +SILT Jackson/Sa/SP/DP/Tib distributions +DF/EHL/PF motor function intact DP palpable Negative Solo's sign, no calf tenderness Labs: CBC with Differential: Lab Results Component Value Date WBC 9.5 09/27/2021 WBC 6.2 11/11/2015 RBC 2.63 09/27/2021 HGB 8.3 09/27/2021 HCT 24.9 09/27/2021 PLT 199 09/27/2021 MCV 94.5 09/27/2021 MCH 31.4 09/27/2021 MCHC 33.2 09/27/2021 RDW 14.5 09/27/2021 SEGSPCT 51.7% 11/11/2015 LYMPHOPCT 18.1 09/27/2021 MONOPCT 10.2 09/27/2021 MONOPCT 7.8% 11/11/2015 BASOPCT 0.1 09/27/2021 BASOPCT 0.8% 11/11/2015 MONOSABS 1.0 09/27/2021 MONOSABS 0.5 11/11/2015 LYMPHSABS 1.7 09/27/2021 LYMPHSABS 2.4 11/11/2015 EOSABS 0.0 09/27/2021 EOSABS 0.1 11/11/2015 BASOSABS 0.0 09/27/2021 BASOSABS 0.1 11/11/2015 BMP: Lab Results Component Value Date NA 132 09/27/2021 K 4.1 09/27/2021 CL 104 09/27/2021 CO2 27 09/27/2021 BUN 34 09/27/2021 LABALBU 4.0 09/11/2021 CREATININE 0.77 09/27/2021 CALCIUM 8.6 09/27/2021 GFRAA >60 11/11/2015 LABGLOM >60 11/11/2015 GLUCOSE 102 09/27/2021 Type and Screen: Lab Results Component Value Date LABABO O 09/25/2021 RH POS 09/25/2021 LABANTI NEG 09/25/2021 INR: Lab Results Component Value Date INR 1.1 09/25/2021 CRP: No results found for: CRP ESR: No results found for: SEDRATE ASSESSMENT AND PLAN: This is a 86 y.o. female with LEFT interprosthetic femur fracture s/p ORIF LEFT femur 09/25/21 -No plans for return OR -TDWB LLE, ROM & activity as tolerated -PT/OT -Ice & elevate -Dressings: keep c/d/I, change prn for saturation -Abx: 24 hrs post op -Ok for diet & anticoagulation -Medical management, pain control, dvt ppx per primary -F/u Dr River in 2 weeks -Orthopaedic surgery service to sign off at this time. Please page on-call resident via [employer] or [phone] with any questions or concerns Nutrition rescreen completed. Chart reviewed. Patient to be monitored and followed by the diet renal dialysis technician. Dietitian available upon request. [facility] Facility/Department: [facility] TELEMETRY Initial Assessment NAME: Adore Walter : 1935 Date of Service: 09/26/2021 Discharge Recommendations: (Facility-based therapy) PT Equipment Recommendations Equipment Needed: No Assessment Body structures, Functions, Activity limitations: Decreased functional mobility ;Decreased ADL status;Decreased endurance;Decreased ROM;Decreased strength;Decreased balance;Increased pain Assessment: Pt is s/p L femur ORIF after a fall. TTWB. Pt is limited d/t deficits listed above, primarily pain and limited ROM. Complies well with TTWB L LE with PT foot placed under pt's foot. Pt is well below functional baseline and at risk for falls, recommend disch to facility-based therapy. Pt agreeable. Specific instructions for Next Treatment: Increasing ROM L LE. Progressive ambulation Prognosis: Good Decision Making: Low Complexity PT Education: Goals;PT Role;Plan of Care;General Safety;Weight-bearing Education;Precautions Patient Education: TTWB L LE REQUIRES PT FOLLOW UP: Yes Activity Tolerance Activity Tolerance: Patient limited by endurance;Patient limited by fatigue;Patient limited by pain Patient Diagnosis(es): The encounter diagnosis was Closed displaced comminuted fracture of shaft of left femur, initial encounter (HCC). has a past medical history of Chronic airway obstruction, not elsewhere classified, Essential hypertension, Hx of blood clots, Hydronephrosis, Hyperlipidemia, Osteoarthrosis, unspecified whether generalized or localized, unspecified site, Osteoporosis, unspecified, and Skin cancer. has a past surgical history that includes Appendectomy; Hysterectomy; bladder suspension; laryngoscopy; fracture surgery (Right); Colonoscopy; skin biopsy; Tonsillectomy; MICROLARYNGOSCOPY W BIOPSY (08/31/2019); joint replacement; joint replacement (Left); eye surgery (Bilateral); other surgical history (06/11/2021); and Femur fracture surgery (Left, 09/25/2021). Restrictions Restrictions/Precautions Restrictions/Precautions: Weight Bearing,Fall Risk,General Precautions Required Braces or Orthoses?: No Lower Extremity Weight Bearing Restrictions Left Lower Extremity Weight Bearing: Toe Touch Weight Bearing Position Activity Restriction Other position/activity restrictions: Per ortho surgery: OK for hip and knee ROM. Vision/Hearing Subjective General Chart Reviewed: Yes Patient assessed for rehabilitation services?: Yes Additional Pertinent Hx: Prior L ROBBIN, R femur fracture with ORIF, and bilat TKA's Family / Caregiver Present: No Follows Commands: Within Functional Limits General Comment Comments: s/p ORIF L femur 09/25/21 Subjective Subjective: Pt in bed and agreeable to PT. RN OK with PT to see pt. Pt eager to start moving again. Orientation Orientation Overall Orientation Status: Within Normal Limits Social/Functional History Social/Functional History Lives With: Spouse Type of Home: House Home Layout: Two level,Able to Live on Main level with bedroom/bathroom Home Access: Stairs to enter without rails Entrance Stairs - Number of Steps: 2 steps (no hand rails) + 4 steps (1 hand rail) Bathroom Toilet: Standard Bathroom Accessibility: Accessible Home Equipment: Cane,Rolling walker,Standard walker Receives Help From: Family ADL Assistance: Independent Homemaking Assistance: Independent Ambulation Assistance: Independent Transfer Assistance: Independent Active Size Cutter: No Patient's Size Cutter Info: Mode of Transportation: Car Occupation: Retired Additional Comments: Lives withn who can assist / as needed. Uses cane at baseline. denied any other falls in past 6 months. Cognition Cognition Overall Cognitive Status: WNL Objective Observation/Palpation Observation: Larissa bandaging over L LE below knee (pt reported it is for a wound/ blister? ) and Larissa bandaging all up R LE hip to toes. AROM RLE (degrees) RLE AROM: WNL AROM LLE (degrees) LLE General AROM: Only approx 25-50% with AAROM for hip flexion and knee fleixon for heelslides. Unable to knee flex past 50 deg sitting EOB d/t pain, and lacking approx 20 deg from TKE for LAQ Strength RLE Strength RLE: WFL Sensation Overall Sensation Status: (Pt denied numbness bilat toes, pt reported she does not think she has pareasthesias L LE, limited d/t bandaging all down leg) Bed mobility Supine to Sit: Moderate assistance Scooting: Minimal assistance Comment: HOB elevated, use of bed rails. Assist for clearing bilat LE's to EOB with L>R Transfers Sit to Stand: Maximum Assistance Stand to sit: Minimal Assistance Bed to Chair: Maximum assistance Comment: Cues for hand placement. PT foot placed under pt's L foot to ensure only TTWB L LE, good compliance from pt throughout. Ambulation Ambulation?: Yes WB Status: TTWB L LE Ambulation 1 Surface: level tile Device: Rolling Walker Assistance: Minimal assistance Quality of Gait: hop R LE Gait Deviations: Slow Kerry;Decreased step length;Decreased step height Distance: 3 ft to chair Comments: PT foot under pt's foot to ensure only TTWB L LE throughout. Good use of UE's to hop RLE with only TTWB L LE. Stairs/Curb Stairs?: No Balance Posture: Good Sitting - Static: Good;- Sitting - Dynamic: Good;- Standing - Static: Fair Standing - Dynamic: Fair Comments: Standing balance limited d/t TTWB L LE. Denied dizziness and light headedness in standing Exercises Heelslides: supine AAROM x 15 L LE, AROM x 5 R LE Knee Long Arc Quad: LAQ into seated heelslides for increasing knee flexion/ext , AAROM to PROM x 10 L LE Ankle Pumps: x10 bilat LE's Comments: IS x 10: 1000mL Plan Plan Times per week: 5-7 Plan weeks: 2 Specific instructions for Next Treatment: Increasing ROM L LE. Progressive ambulation Current Treatment Recommendations: Strengthening,Endurance Training,Transfer Training,ROM,ADL/Self-care Training,Balance Training,IADL Training,Gait Training,Functional Mobility Training,Stair training,Safety Education & Training,Patient/Caregiver Education & Training,Equipment Evaluation, Education, & procurement Safety Devices Type of devices: Patient at risk for falls,Left in chair,Call light within reach,Gait belt,Nurse notified (RN notified of meds found on floor and bed) G-Code OutComes Score AM-PAC Score AM-PAC Inpatient Mobility Raw Score : 9 (09/26/21954) AM-PAC Inpatient T-Scale Score : 30.55 (09/26/21954) Mobility Inpatient CMS 0-100% Score: 81.38 (09/26/21954) Mobility Inpatient CMS G-Code Modifier : CM (09/26/21954) Goals Short term goals Time Frame for Short term goals: 2 weeks Short term goal 1: Perform bed mobility SBA Short term goal 2: Perform transfers Min assist with TTWB L LE Short term goal 3: Ambulate 15 ft with TTWB L LE Min assist Short term goal 4: L LE AROM: WNL Patient Goals Patient goals : To go to rehab Therapy Time Individual Concurrent Group Co-treatment Time In 0832 Time Out 0859 Minutes 27 Timed Code Treatment Minutes: (x1 TP) Patient s Physical Therapy Plan of Care supervision is transferred to [facility] Rehab Department Physical Therapist. PT wore surgical mask, goggles, and gloves throughout entire session with patient. Vivian Omalley PT Images from the original note were not included. [facility] Progress Note Adore Walter : 1935(86 y.o.) Date: 09/26/2021 Subjective: HPI CC: left hip pain Pt states that she feels OK at rest Admits to pain with any movement No SOB, CP Cough noted, states chronic cough at baseline Last BM on Wednesday. Pt reports this is "normal" for her. She denies abdominal pain Scheduled Meds: enoxaparin 40 mg SubCUTAneous Daily sodium chloride flush 5-40 mL IntraVENous 2 times per day carvedilol 12.5 mg Oral Daily with breakfast simvastatin 10 mg Oral Nightly lisinopril 5 mg Oral Daily Continuous Infusions: sodium chloride PRN Meds:sodium chloride flush, sodium chloride, ondansetron OR ondansetron, polyethylene glycol, acetaminophen OR acetaminophen, morphine AND morphine, hydrALAZINE, ketorolac Review of Systems As above Interval Pertinent History: Social History Tobacco Use Smoking status: Former Smoker Packs/day: 0.50 Years: 35.00 Pack years: 17.50 Types: Cigarettes Start date: 1956 Quit date: 1991 Years since quittin.1 Smokeless tobacco: Never Used Substance Use Topics Alcohol use: Yes Alcohol/week: 0.0 standard drinks Comment: obdulia bullard Objective: Patient Vitals for the past 24 hrs: BP Temp Temp src Pulse Resp SpO2 09/26/21 0741 (!) 125/53 81 09/26/21 0545 108/71 98.5 F (36.9 C) 80 18 94 % 09/25/21 2059 (!) 109/55 98 F (36.7 C) Temporal 82 18 94 % 09/25/21 1807 124/72 97.8 F (36.6 C) Temporal 68 17 98 % Average, Min, and Max for last 24 hours Vitals: TEMPERATURE: Temp Av.1 F (36.7 C) Min: 97.8 F (36.6 C) Max: 98.5 F (36.9 C) RESPIRATIONS RANGE: Resp Av.7 Min: 17 Max: 18 PULSE RANGE: Pulse Av.8 Min: 68 Max: 82 BLOOD PRESSURE RANGE: Systolic (24hrs), Av , Min:108 , Max:125 ; Diastolic (24hrs), Av, Min:53, Max:72 PULSE OXIMETRY RANGE: SpO2 Av.3 % Min: 94 % Max: 98 % I/O last 3 completed shifts: In: 750 [P.O.:250; I.V.:500] Out: 1750 [Urine:1675; Blood:75] Physical Exam Vitals and nursing note reviewed. Constitutional: General: She is not in acute distress. Comments: Sitting up in chair HENT: Head: Atraumatic. Eyes: General: No scleral icterus. Cardiovascular: Rate and Rhythm: Normal rate and regular rhythm. Pulmonary: Effort: No respiratory distress. Breath sounds: No wheezing or rhonchi. Comments: Single cough noted Abdominal: Palpations: Abdomen is soft. Musculoskeletal: Comments: BLE with larissa wraps in place Skin: General: Skin is warm and dry. Neurological: Mental Status: She is alert. Comments: Speech is clear, following commands, answering questions appropriately Psychiatric: Mood and Affect: Mood normal. Behavior: Behavior normal. Lab Results Component Value Date WBC 12.4 (H) 09/26/2021 HGB 9.6 (L) 09/26/2021 HCT 29.2 (L) 09/26/2021 MCV 94.6 09/26/2021 PLT 214 09/26/2021 Lab Results Component Value Date NA 132 09/26/2021 K 4.5 09/26/2021 CL 103 09/26/2021 CO2 27 09/26/2021 BUN 28 09/26/2021 CREATININE 0.66 09/26/2021 GLUCOSE 131 09/26/2021 CALCIUM 8.8 09/26/2021 No results found for: LABA1C Additional results of the last 24 hours have been reviewed. Assessment and Plan: Principal Problem: Periprosthetic fracture around internal prosthetic joint Active Problems: Hypertensive urgency Gait instability Intractable neuropathic pain of left knee Hyponatremia Hyperglycemia Resolved Problems: * No resolved hospital problems. * L periprosthetic femur fracture s/p repair 09/25 HTN urgency, resolved Mild hyponatremia Chronic constipation Mild leukocytosis, suspect stress induced Acute normocytic anemia, suspect perioperative losses/stress LLE lac, RLE abrasion - local care. Superficial LLE wound culture reviewed - doubt active infection. Will discuss with wound care. Appreciate orthopedic surgery recommendations. TDWB status LLE. Pt agreeable to SNF on DC, pending facility acceptance. Schedule bowel regimen. DVTProphylaxis: lovenox 40 q 24hr - creatinine clearance >30 Disposition: anticipate DC to ECF 09/27 I spent over 51% of total time providing counseling or incoordination of care: > 25 minutes discussed with nurse, discussed with TCC/SW, discussed with the patient, I personally examined the patient and I personally reviewed chart, data, labs radiology reports 6AM-6PM please page: 6PM-6AM please page: [facility] [place], [place] Internal Medicine Per most recent personal carer note, patient will [facility]. Will defer follow up appointment management with Dr. River to Dante Rai PA-C at this time. Images from the original note were not included. Department of Orthopedic Surgery Progress Note SUBJECTIVE: No acute events overnight. Resting comfortably in bed. Pain well controlled. No new paresthesias. No CP/SOB. No fevers or chills. OBJECTIVE: General: alert and oriented to person, place and time, well-developed and well-nourished, in no acute distress VITALS: BP 108/71 Pulse 80 Temp 98.5 F (36.9 C) Resp 18 SpO2 94% MSK exam: Labs: CBC with Differential: Lab Results Component Value Date WBC 10.5 09/25/2021 WBC 6.2 11/11/2015 RBC 3.93 09/25/2021 HGB 12.4 09/25/2021 HCT 37.1 09/25/2021 PLT 286 09/25/2021 MCV 94.4 09/25/2021 MCH 31.4 09/25/2021 MCHC 33.3 09/25/2021 RDW 14.6 09/25/2021 SEGSPCT 51.7% 11/11/2015 LYMPHOPCT 19.0 09/25/2021 MONOPCT 6.9 09/25/2021 MONOPCT 7.8% 11/11/2015 BASOPCT 0.3 09/25/2021 BASOPCT 0.8% 11/11/2015 MONOSABS 0.7 09/25/2021 MONOSABS 0.5 11/11/2015 LYMPHSABS 2.0 09/25/2021 LYMPHSABS 2.4 11/11/2015 EOSABS 0.0 09/25/2021 EOSABS 0.1 11/11/2015 BASOSABS 0.0 09/25/2021 BASOSABS 0.1 11/11/2015 BMP: Lab Results Component Value Date NA 132 09/26/2021 K 4.5 09/26/2021 CL 103 09/26/2021 CO2 27 09/26/2021 BUN 28 09/26/2021 LABALBU 4.0 09/11/2021 CREATININE 0.66 09/26/2021 CALCIUM 8.8 09/26/2021 GFRAA >60 11/11/2015 LABGLOM >60 11/11/2015 GLUCOSE 131 09/26/2021 Type and Screen: Lab Results Component Value Date LABABO O 09/25/2021 RH POS 09/25/2021 LABANTI NEG 09/25/2021 INR: Lab Results Component Value Date INR 1.1 09/25/2021 CRP: No results found for: CRP ESR: No results found for: SEDRATE ASSESSMENT AND PLAN: This is a 86 y.o. female with LEFT interprosthetic femur fracture s/p ORIF LEFT femur 09/25/21 -No plans for return OR -TDWB LLE, ROM & activity as tolerated -PT/OT -Ice & elevate -Dressings: keep c/d/I, change prn for saturation -Abx: 24 hrs post op -Ok for diet & anticoagulation -Medical management, pain control, dvt ppx per primary -F/u Dr River in 2 weeks -Ortho to follow Conor Cannon MD PGY-4, Orthopaedic Surgery [phone] 09/26/2021 .6:18 AM Images from the original note were not included. [facility] Wound Care CONSULT Note Adore Walter AGE: 86 y.o. GENDER: female : 1935 Subjective: HISTORY of PRESENT ILLNESS HPI Adore Walter is a 86 y.o. female who presents for a wound consult. History of Wound Context: Patient presents after falling at home. Patient fell on left side, left femur fracture. Patient had surgical intervention this morning to left hip/leg. PAST MEDICAL HISTORY Diagnosis Date Chronic airway obstruction, not elsewhere classified Essential hypertension 12/14/2020 Hx of blood clots lower extremity- over 50 yrs ago Hydronephrosis BOTH KIDNEYS AND SCHEDULED FOR THE PROCEDURE / SURGERY ON 01/03/2019 Hyperlipidemia Osteoarthrosis, unspecified whether generalized or localized, unspecified site Osteoporosis, unspecified Skin cancer skin- L&R arms,face, bilat legs, back PAST SURGICAL HISTORY Past Surgical History: Procedure Laterality Date APPENDECTOMY BLADDER SUSPENSION LONG TIME AGO AT [facility] COLONOSCOPY EYE SURGERY Bilateral cataracts FEMUR FRACTURE SURGERY Left 09/25/2021 ORIF FRACTURE SURGERY Right right hip ORIF HYSTERECTOMY JAZMYNE with BSO JOINT REPLACEMENT bilateral knees IN [facility] JOINT REPLACEMENT Left Left hip AT [facility] LARYNGOSCOPY 04/18. benign polyp MICROLARYNGOSCOPY W BIOPSY 08/31/2019 with excision lesion vocal cord DR VARGAS OTHER SURGICAL HISTORY 06/11/2021 Excision Left Leg Lesion with Intermediate Closure, Excision Left Neck Lesion with Intermediate Closure. Dr [place] SKIN BIOPSY TONSILLECTOMY FAMILY HISTORY Family History Problem Relation Age of Onset Cancer Father skin cancer SOCIAL HISTORY Social History Tobacco Use Smoking status: Former Smoker Packs/day: 0.50 Years: 35.00 Pack years: 17.50 Types: Cigarettes Start date: 1956 Quit date: 1991 Years since quittin.1 Smokeless tobacco: Never Used Vaping Use Vaping Use: Never used Substance Use Topics Alcohol use: Yes Alcohol/week: 0.0 standard drinks Comment: [facility] Drug use: Never Comment: Caffeine use: up to 4 cups of coffee per day ALLERGIES No Known Allergies MEDICATIONS No current facility-administered medications on file prior to encounter. Current Outpatient Medications on File Prior to Encounter Medication Sig Dispense Refill alendronate (FOSAMAX) 70 MG tablet Take 1 tablet by mouth every 7 days 12 tablet 0 lisinopril (PRINIVIL;ZESTRIL) 20 MG tablet Take 1 tablet by mouth daily 90 tablet 0 simvastatin (ZOCOR) 10 MG tablet Take 1 tablet by mouth nightly 90 tablet 0 carvedilol (COREG) 12.5 MG tablet Take 1 tablet by mouth daily 90 tablet 0 acetaminophen (TYLENOL) 500 MG tablet Take 500 mg by mouth every 6 hours as needed for Pain Handicap Placard MISC 1 each by Does not apply route daily 1 each 0 cefUROXime (CEFTIN) 250 MG tablet Take 1 tablet by mouth 2 times daily for 10 days 20 tablet 0 REVIEW OF SYSTEMS Pertinent items are noted in HPI. Objective: BP 122/68 Pulse 72 Temp 98 F (36.7 C) (Temporal) Resp 16 SpO2 98% PHYSICAL EXAM General Appearance: alert and oriented to person, place and time Skin: warm and dry. 1. Left lower leg- laceration. Wound measures 0.2x0.2x0.5cm. Wound bed with pink tissue and small are of slough. Periwound intact. 2. Right lower leg- abrasion. Wound measures [id number]. Wound scabbed. No drainage noted. Periwound. Pulmonary/Chest: respirations easy, no distress noted. Extremities: no cyanosis, no clubbing and 1 + edema- bilateral lower legs. LABS CBC: Lab Results Component Value Date WBC 10.5 09/25/2021 WBC 6.2 11/11/2015 HGB 12.4 09/25/2021 HCT 37.1 09/25/2021 MCV 94.4 09/25/2021 PLT 286 09/25/2021 BMP: Lab Results Component Value Date NA 133 09/25/2021 K 4.5 09/25/2021 CL 107 09/25/2021 CO2 24 09/25/2021 BUN 16 09/25/2021 CREATININE 0.48 09/25/2021 PT/INR: Lab Results Component Value Date PROTIME 11.3 09/25/2021 INR 1.1 09/25/2021 Prealbumin: No results found for: PREALBUMIN Albumin: Lab Results Component Value Date LABALBU 4.0 09/11/2021 Sed Rate:No results found for: SEDRATE Micro: No results found for: BC Assessment/Plan: 1. Left lower leg- laceration -Cleanse with NS, apply mesalt, dry clean dressing daily and PRN 2. Right lower leg- abrasion. -Cleanse with NS, apply adaptic, dry clean dressing daily and PRN 3. Nutritional support Any questions or concerns please vocera or perfect serve "wound care". Thank you for the consult! I personally obtained the kang and critical portions of the history and physical exam. I reviewed the labs, imaging studies, and electronic medical record. I reviewed the chart documentation and discussed the patient with treatment team members. I have edited the note to reflect my clinical findings and my assessment and plan. Please note, the time of this note does not reflect the time I saw this patient today, but the time of this documentaton. Portions of this note including HPI, ROS, impression/plan, and examination may have been copied forward from admission to today as to provide important historical information essential in contributing to medical decision making. Documentation has been reviewed and edited as necessary to support clinical decision making for today's visit and to reflect my own independent evaluation of this patient. Decision making for today's visit and to reflect my own independent evaluation of this patient. Report called to Minda CRAWFORD on H6 Pt arrived to [place] [id number]. 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 VSS. Occupational Therapy Pt going to OR today. Will follow up post-op. Physical Therapy PT orders received. Per most recent ortho surgery notes: "OR for ORIF L femur 09/25". Will return tomorrow after surgery. documented in this encounter [facility] Work Phone: 09-29-2021 Note [facility] Discharge Summary and Transition Note Adore Walter : 1935 ADMIT DATE: 09/24/2021 DISCHARGE DATE: 09/29/2021 PRIMARY CARE PHYSICIAN: Chris Arora DO VISIT STATUS: Admission CODE STATUS: Full Code DISCHARGE DIAGNOSES: Principal Problem: Periprosthetic fracture around internal prosthetic joint Active Problems: Hypertensive urgency Gait instability Intractable neuropathic pain of left knee Hyponatremia Hyperglycemia Resolved Problems: * No resolved hospital problems. * HOSPITAL COURSE: Pt admitted after fall at home for left hip pain. Work up demonstrated left periprosthetic hip fracture - s/p repair 09/25. PT/OT recommended FBT, patient agreeable. Ortho recommending repeat hip XR in 2 weeks. TDWB LLE until follow up. The following diagnoses were addressed during this admission: L periprosthetic femur fracture s/p repair 09/25 HTN urgency, resolved Mild hyponatremia Chronic constipation, resolved Mild leukocytosis, suspect stress induced, resolved Acute normocytic anemia, suspect perioperative losses/stress, stable/improving? LLE lac, RLE abrasion - local care. Superficial LLE wound culture reviewed - doubt active infection. Discussed with wound care ? Left chest wall pain -?rib series negative. Suspect MSK pain. Lidocaine patch. Suspicion for PE relatively low as pain appears musculoskeletal, is reproducible on exam, and not associated with SOB or tachycardia. ? ? PROCEDURES: Brief Postoperative Note ? Adore Walter Date of : 1935 [id number] ? Pre-operative Diagnosis: L interprosthetic distal femur fx ? Post-operative Diagnosis: Same ? Procedure: ORIF L distal femur fx ? Anesthesia: General ? Surgeons/Assistants: Perico/German/Renee ? Estimated Blood Loss: 50 ? Complications: None CONSULTANTS: Orthopedic surgery DISCHARGE MEDICATIONS: Significant Medication Changes: Medication List START taking these medications bisacodyl 10 MG suppository Commonly known as: DULCOLAX Place 1 suppository rectally daily as needed for Constipation (2nd line or patient preference) docusate sodium 100 MG capsule Commonly known as: COLACE Take 1 capsule by mouth 2 times daily enoxaparin 40 MG/0.4ML injection Commonly known as: LOVENOX Inject 0.4 mLs into the skin daily for 21 days Start taking on: September 30, 2021 lidocaine 4 % external patch Place 1 patch onto the skin daily Start taking on: September 30, 2021 ondansetron 4 MG disintegrating tablet Commonly known as: ZOFRAN-ODT Take 1 tablet by mouth every 8 hours as needed for Nausea or Vomiting oxyCODONE 5 MG immediate release tablet Commonly known as: ROXICODONE Take 1-2 tablets by mouth every 4 hours as needed for Pain for up to 3 days. polyethylene glycol 17 g packet Commonly known as: GLYCOLAX Take 17 g by mouth daily Start taking on: September 30, 2021 CHANGE how you take these medications lisinopril 5 MG tablet Commonly known as: PRINIVIL;ZESTRIL Take 1 tablet by mouth daily Start taking on: September 30, 2021 What changed: ? medication strength ? how much to take CONTINUE taking these medications acetaminophen 500 MG tablet Commonly known as: TYLENOL alendronate 70 MG tablet Commonly known as: Fosamax Take 1 tablet by mouth every 7 days carvedilol 12.5 MG tablet Commonly known as: COREG Take 1 tablet by mouth daily Handicap Placard Misc 1 each by Does not apply route daily simvastatin 10 MG tablet Commonly known as: ZOCOR Take 1 tablet by mouth nightly STOP taking these medications cefUROXime 250 MG tablet Commonly known as: CEFTIN Where to Get Your Medications Information about where to get these medications is not yet available Ask your nurse or doctor about these medications ? bisacodyl 10 MG suppository ? docusate sodium 100 MG capsule ? enoxaparin 40 MG/0.4ML injection ? lidocaine 4 % external patch ? lisinopril 5 MG tablet ? ondansetron 4 MG disintegrating tablet ? oxyCODONE 5 MG immediate release tablet ? polyethylene glycol 17 g packet DIET: regular ACTIVITY: up with assistance, TDWB LLE SIGNIFICANT DIAGNOSTIC STUDIES: L hip XR 09/25 Portable AP and lateral views which include the hip and knee are compared to the examination of the previous day. There has been ORIF of a comminuted periprosthetic fracture of the distal humeral metadiaphysis using a long lateral orthopedic blade plate with multiple transfixing screws. The plate extends the length of the femoral diaphysis and overlaps with the stem of the left hip arthroplasty. There is near-anatomic alignment of the lateral fracture fragments. There is approximately 1.4 cm of medial displacement of the medial distal fracture fragment similar to the prior examination. No other changes.. ? IMPRESSION: Status post ORIF of comminuted periprosthetic distal left femur fracture as detailed above. L rib 09/27 (more content not included)... [facility] 09-29-2021 Hospital course Narrative Images from the original note were not included. [facility] Discharge Summary and Transition Note Adore Walter : 1935 ADMIT DATE: 09/24/2021 DISCHARGE DATE: 09/29/2021 PRIMARY CARE PHYSICIAN: Chris Arora DO VISIT STATUS: Admission CODE STATUS: Full Code DISCHARGE DIAGNOSES: Principal Problem: Periprosthetic fracture around internal prosthetic joint Active Problems: Hypertensive urgency Gait instability Intractable neuropathic pain of left knee Hyponatremia Hyperglycemia Resolved Problems: * No resolved hospital problems. * HOSPITAL COURSE: Pt admitted after fall at home for left hip pain. Work up demonstrated left periprosthetic hip fracture - s/p repair 09/25. PT/OT recommended FBT, patient agreeable. Ortho recommending repeat hip XR in 2 weeks. TDWB LLE until follow up. The following diagnoses were addressed during this admission: L periprosthetic femur fracture s/p repair 09/25 HTN urgency, resolved Mild hyponatremia Chronic constipation, resolved Mild leukocytosis, suspect stress induced, resolved Acute normocytic anemia, suspect perioperative losses/stress, stable/improving LLE lac, RLE abrasion - local care. Superficial LLE wound culture reviewed - doubt active infection. Discussed with wound care Left chest wall pain - rib series negative. Suspect MSK pain. Lidocaine patch. Suspicion for PE relatively low as pain appears musculoskeletal, is reproducible on exam, and not associated with SOB or tachycardia. PROCEDURES: Brief Postoperative Note Adore Walter Date of : 1935 [id number] Pre-operative Diagnosis: L interprosthetic distal femur fx Post-operative Diagnosis: Same Procedure: ORIF L distal femur fx Anesthesia: General Surgeons/Assistants: Perico/German/Renee Estimated Blood Loss: 50 Complications: None CONSULTANTS: Orthopedic surgery DISCHARGE MEDICATIONS: Significant Medication Changes: Medication List START taking these medications bisacodyl 10 MG suppository Commonly known as: DULCOLAX Place 1 suppository rectally daily as needed for Constipation (2nd line or patient preference) docusate sodium 100 MG capsule Commonly known as: COLACE Take 1 capsule by mouth 2 times daily enoxaparin 40 MG/0.4ML injection Commonly known as: LOVENOX Inject 0.4 mLs into the skin daily for 21 days Start taking on: September 30, 2021 lidocaine 4 % external patch Place 1 patch onto the skin daily Start taking on: September 30, 2021 ondansetron 4 MG disintegrating tablet Commonly known as: ZOFRAN-ODT Take 1 tablet by mouth every 8 hours as needed for Nausea or Vomiting oxyCODONE 5 MG immediate release tablet Commonly known as: ROXICODONE Take 1-2 tablets by mouth every 4 hours as needed for Pain for up to 3 days. polyethylene glycol 17 g packet Commonly known as: GLYCOLAX Take 17 g by mouth daily Start taking on: September 30, 2021 CHANGE how you take these medications lisinopril 5 MG tablet Commonly known as: PRINIVIL;ZESTRIL Take 1 tablet by mouth daily Start taking on: September 30, 2021 What changed: medication strength how much to take CONTINUE taking these medications acetaminophen 500 MG tablet Commonly known as: TYLENOL alendronate 70 MG tablet Commonly known as: Fosamax Take 1 tablet by mouth every 7 days carvedilol 12.5 MG tablet Commonly known as: COREG Take 1 tablet by mouth daily Handicap Placard Misc 1 each by Does not apply route daily simvastatin 10 MG tablet Commonly known as: ZOCOR Take 1 tablet by mouth nightly STOP taking these medications cefUROXime 250 MG tablet Commonly known as: CEFTIN Where to Get Your Medications Information about where to get these medications is not yet available Ask your nurse or doctor about these medications bisacodyl 10 MG suppository docusate sodium 100 MG capsule enoxaparin 40 MG/0.4ML injection lidocaine 4 % external patch lisinopril 5 MG tablet ondansetron 4 MG disintegrating tablet oxyCODONE 5 MG immediate release tablet polyethylene glycol 17 g packet DIET: regular ACTIVITY: up with assistance, TDWB LLE SIGNIFICANT DIAGNOSTIC STUDIES: L hip XR 09/25 Portable AP and lateral views which include the hip and knee are compared to the examination of the previous day. There has been ORIF of a comminuted periprosthetic fracture of the distal humeral metadiaphysis using a long lateral orthopedic blade plate with multiple transfixing screws. The plate extends the length of the femoral diaphysis and overlaps with the stem of the left hip arthroplasty. There is near-anatomic alignment of the lateral fracture fragments. There is approximately 1.4 cm of medial displacement of the medial distal fracture fragment similar to the prior examination. No other changes.. IMPRESSION: Status post ORIF of comminuted periprosthetic distal left femur fracture as detailed above. L rib 09/27 COMPARISON: 09/24/2021 chest x-ray FINDINGS: No acute rib fracture seen. IMPRESSION: 1. No acute rib fracture seen. COMPLEXITY OF FOLLOW UP: [x] Moderate Complexity: follow up within 7-14 calendar days (48136) [] Severe Complexity: follow up within 7 calendar days (61084) FOLLOW UP TESTING, PENDING RESULTS OR REFERRALS AT TRANSITIONAL CARE VISIT: [x] Yes [] No DISPOSITION: ECF FACILITY/HOME CARE AGENCY NAME: [facility] Follow up with Chris Arora DO to be scheduled within 7 days of DC from ecf Notification (telephone encounter) to PCP initiated: [x] Yes [] No INSTRUCTIONS TO MA/SW: Please call patient on day after discharge (must document patient contacted within 2 business days of discharge). FOLLOW UP QUESTIONS FOR MA/SW: 1. Did you get medications filled and taking them as instructed from discharge? 2. Are you following your discharge instructions from your hospital stay? 3. Please confirm patient is scheduled for a follow up appointment within the above time frame. DISCHARGE TIME: > 30 minutes documented in this encounter [facility] Work Phone: 09-29-2021 Hospital Discharge instructions Minda Cisneros RN - 09/29/2021 11:03 AM EST Continuity of Care Form Patient Name: Adore Walter : 1935 Admit date: 09/24/2021 Discharge date: 09/29/2021 Code Status Order: Full Code Advance Directives: Admitting Physician: Enrrique Gallagher MD PCP: Chris Arora DO Discharging Nurse: Minda Singharging [facility] Unit/Room#: [id number] Discharging Unit Emergency Contact: Extended Emergency Contact Information Primary Emergency Contact: Popeye Walter [facility] Relation: Child Secondary Emergency Contact: Ketan Walter [facility] Relation: Spouse Past Surgical History: Past Surgical History: Procedure Laterality Date APPENDECTOMY BLADDER SUSPENSION LONG TIME AGO AT [facility] COLONOSCOPY EYE SURGERY Bilateral cataracts FEMUR FRACTURE SURGERY Left 09/25/2021 ORIF FRACTURE SURGERY Right right hip ORIF HYSTERECTOMY JAZMYNE with BSO JOINT REPLACEMENT bilateral knees IN DIETZ JOINT REPLACEMENT Left Left hip AT [facility] L[facility] 04/18. benign polyp MICROLARYNGOSCOPY W BIOPSY 08/31/2019 with excision lesion vocal cord DR VARGAS OTHER SURGICAL HISTORY 06/11/2021 Excision Left Leg Lesion with Intermediate Closure, Excision Left Neck Lesion with Intermediate Closure. 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 Presence of retained hardware Z96.9 OAB (overactive bladder) N32.81 Hydronephrosis, bilateral N13.30 Chronic obstructive pulmonary disease (HCC) J44.9 LV dysfunction I51.9 Essential hypertension I10 Ectopic cardiac beats I49.49 Thoracic aortic aneurysm, without rupture (HCC) I71.2 Periprosthetic fracture around internal prosthetic joint M97.9XXA Hypertensive urgency I16.0 Gait instability R26.81 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 Hyponatremia E87.1 Hyperglycemia R73.9 Isolation/Infection: Isolation No Isolation Patient Infection Status None to display Nurse Assessment: Last Vital Signs: BP 109/60 Pulse 63 Temp 97.8 F (36.6 C) (Temporal) Resp 18 SpO2 94% Last documented pain score (0-10 scale): Pain Level: 3 Last Weight: Wt Readings from Last 1 Encounters: 09/16/21 127 lb (57.6 kg) Mental Status: oriented and alert IV Access: - None Nursing Mobility/ADLs: Walking Assisted Transfer Assisted Bathing Assisted Dressing Assisted Toileting Assisted Feeding Independent Financial Internship Independent Med Delivery whole Wound Care Documentation and Therapy: Elimination: Continence: Bowel: YES Bladder: NO Urinary Catheter: Removal Date 09/26/2021 Colostomy/Ileostomy/Ileal Conduit: NO Date of Last BM: 09/29/2021 No intake or output data in the 24 hours ending 09/29/21 1103 No intake/output data recorded. Safety Concerns: At Risk for Falls Impairments/Disabilities: None Nutrition Therapy: Current Nutrition Therapy: - Oral Diet: General Routes of Feeding: Oral Liquids: thin Daily Fluid Restriction: no Last Modified Barium Swallow with Video (Video Swallowing Test): not done Treatments at the Time of Hospital Discharge: Respiratory Treatments: N/A Oxygen Therapy: is not on home oxygen therapy. Ventilator: - No ventilator support Rehab Therapies: Physical Therapy, Occupational Therapy Weight Bearing Status/Restrictions: No weight bearing restirctions Other Medical Equipment (for information only, NOT a DME order): N/A Other Treatments: WBAT LLE Patient's personal belongings (please select all that are sent with patient): Glasses RN SIGNATURE: CASE MANAGEMENT/SOCIAL WORK SECTION Inpatient Status Date: Readmission Risk Assessment Score: Readmission Risk Risk of Unplanned Readmission: 15 Discharging to Facility/ Agency Name: [facility] Address:[address] [place] [address] Dialysis Facility (if applicable) Name: Address: Dialysis Schedule: Phone: 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 If dry, ok to leave open to air. Physician Certification: I certify the above information and transfer of Adore Walter is necessary for the continuing treatment of the diagnosis listed and that she requires [facility]it[facility] Facility for less 30 days. Update Admission H&P: No change in H&P L periprosthetic femur fracture s/p repair 09/25 HTN urgency, resolved Mild hyponatremia Chronic constipation, resolved Mild leukocytosis, suspect stress induced, resolved Acute normocytic anemia, suspect perioperative losses/stress, stable/improving LLE lac, RLE abrasion - local care. Superficial LLE wound culture reviewed - doubt active infection. Discussed with wound care Left chest wall pain - rib series negative. Suspect MSK pain. Lidocaine patch. Suspicion for PE relatively low as pain appears musculoskeletal, is reproducible on exam, and not associated with SOB or tachycardia. PHYSICIAN SIGNATURE: Oscar Ledesma DO - 09/25/2021 Images from the original note were not included. Please take medications as prescribed. Please follow up with your PCP within 1 week to discuss hospital stay. Please call your PCP or return to the ED with new or worsening symptoms. Orthopaedic Surgery Discharge Instructions: -touch down weight bearing to left leg -Activity as tolerated otherwise -Ok for full range of motion of knee -Ok to change dressings as needed for saturation -Ice and elevate to reduce pain and swelling. Do not put ice directly on the skin. -Follow-up outpatient with Dr. River in 2 weeks. The office contact information is provided in your paperwork. -Take medications as prescribed by the hospital doctors documented in this encounter [facility] Work Phone: 06-11-2021 Hospital Discharge instructions Nohemi Cuba MD - 06/11/2021 Images from the original note were not included. Discharge Instructions Call the office in 1 to 2 days to confirm or schedule a follow-up appointment in 1-2 weeks. Leave paper tape in place. Some oozing is expected. OK to remove larissa wrap and gauze and then shower on wednesday. Gently pat dry. No baths. On Wednesday, please begin wearing compression stockings. Leave paper tape in place to both the neck and leg. OK for ambulation as tolerated. No lifting over 10 pounds. Wound Care: Keep incision and tape clean and dry documented in this encounter [facility] Work Phone: 06-11-2021 History of Present illness Narrative brought to bedside in his wheelchair. Pt assisted up to wheelchair and taken to restroom where she voided, depends changed and she performed faith care. Tolerated well and states she is ready to go home. Complains of slight stinging in left leg denies need for medication. Assisted with getting dressed. Discharge instructions reviewed with them and questions answered provided with paper copy. Received pt from OR to recovery alert denies pain. Repositioned. Report received and assessment completed. Belongings with pt documented in this encounter [facility] Work Phone: 06-05-2021 Hospital Discharge instructions Sayra Tripathi RN - 06/05/2021 ..PLEASE BE AWARE THAT VISITORS UNDER THE AGE OF 12 AND FOOD/DRINKS ARE NO LONGER PERMITTED IN THE SAME DAY SURGERY DEPARTMENT. IF YOU USE A CPAP MACHINE OR RESCUE INHALER AT HOME PLEASE BRING THESE ITEMS WITH YOU THE DAY OF SURGERY. MEDICATION INSTRUCTIONS PRIOR TO SURGERY PLEASE BRING PROVIDED LIST BACK WITH YOU THE DAY OF SURGERY WITH DATE/TIME LAST DOSE OF MEDICATIONS TAKEN. MEDICATIONS TO HOLD STARTING NOW- vitamins, supplements, aspirin, stop nsaids 24 hours before surgery MEDICATIONS THAT YOU SHOULD NOT TAKE THE MORNING OF SURGERY- as above, lisinopril MEDICATIONS THAT YOU SHOULD TAKE THE MORNING OF SURGERY- alendronate, carvedilol, simvastatin The following attachments cannot be sent through Care Everywhere.Skin Lesion Removal: Post-op (Vietnamese)Skin Lesion Removal: Pre-op (Vietnamese)documented in this encounter [facility] Work Phone: 08-31-2019 History of Present illness Narrative Phase II indicated, pt awake and talking, VS stable, pt dressed and ambulated to wheelchair without difficulty, home going instructions reviewed with patient, verbal understanding demonstrated and opportunity given for questions Pt dentures returned to her, pt denies nausea or pain at this time, pt vs stable PATIENT RECEIVED FROM OR VIA CART. SPONT RESP. WITH JACKSPOOLER IN ATTENDANCE. PLACED ON MONITOR. MONITOR ALARMS ON IN PACU. documented in this encounter [facility] Work Phone: 08-31-2019 Hospital Discharge instructions Wm Vargas, DO - 08/31/2019 Vocal Cord Surgery Home Instructions Dr. Wm Vargas 1. You may experience a sore throat or sore tongue from the operation. This is due to the pressure the instrument exerts on the tissues. 2. You may use ibuprofen as needed for discomfort. 3. Start with cool, clear liquids and progress to soft foods as tolerated. Gradually work into eating solid foods. Do not eat greasy, spicy or fired foods for 48 - 72 hours following surgery. Please drink plenty of fluids. Dehydration is extremely harmful to the vocal cords. Encourage 6 - 8 glasses of water per day. 4. Voice rest for 3 days. Then please observe relative voice rest (e.g. speak only when necessary, no whispering and no yelling) for the next 4 days. This give the raw tissue in the larynx (voice box) a chance to begin to heal. 5. Hoarseness may last up to several weeks. During this time, tissue swelling will gradually decrease and the lining of the vocal cords will regenerate. 6. If you must speak, please do so standing no more than an arm's length away from the person you are talking to. Also speak in a softer than normal voice. This creates less trauma to the vocal cords than whispering or shouting. Avoid raising the voice. 7. Avoid coughing and throat clearing. These are two of the most damaging thinks you can do to the vocal cords, especially during the healing process. 8. A cool mist humidifier in the bedroom may relieve a dry throat and congestion, especially during the winter months. 9. Resume all home medications as instructed. 10. Take 10 deep breaths per hour for the first 24 hours after surgery. Continue the deep breaths occasionally over the next couple of days. This is to fully expand the lungs and prevent low-grade fever after surgery. 11. Call our office you experience chills or fever (temperature greater than 101 degrees), severe pain, breathing difficulties, choking, chest pain, wheezing, difficulty and pain with swallowing, fullness and cracking sensation in the chest, prolonged nausea or vomiting. 12. Limit your activities for a week. Do not engage in sports, heavy working or heavy lifting during this time. 13. No alcoholic beverages and no smoking for a week following your surgery, as it will take longer for the tissue to heal. Please call the office at [phone] with any questions or problems. documented in this encounter [facility] Work Phone: 08-24-2019 Hospital Discharge instructions Ximena Bean RN - 08/24/2019 HOLD NAPROXEN, NAPROSYN, ALEVE FOR 3 DAYS BEFORE SURGERY MAY TAKE ALL OTHER MEDICATIONS PRESCRIBED ARRIVE HOURS PRIOR TO SURGERY BE HERE AT Check in at registration using photo ID and insurance card Have a responsible adult with you that will be able to take you home and will be able to stay with you when you are home. If using public transportation a responsible adult must accompany you NO FOOD AFTER MIDNIGHT THE NIGHT BEFORE SURGERY This includes candy, gum, and mints MAY have CLEAR LIQUIDS (WATER, APPLE JUICE, CRANBERRY JUICE, BLACK COFFEE, TEA, CARBONATED POP GATORADE) To drink until arrival time for surgery Wear loose comfortable clean clothing that you can go home in Leave all jewelry and valuables at home No children under the age of 12 permitted Bring printed medication list with you Write the date and times of last dose DO NOT USE alcohol, recreational drugs or tobacco products for 24 hours before surgery Please write down any questions that you may have for your surgeon, anesthesiologist, Etc. The following attachments cannot be sent through Care Everywhere.Laryngoscopy: Direct Rigid: Post-op (Vietnamese)Laryngoscopy: Direct Rigid: Pre-op (Vietnamese)documented in this encounter [facility] Work Phone: Evaluation note Diagnosis Other specified symptoms and signs involving the circulatory and respiratory systems Bruit of right carotid artery Other premature depolarization Localized edema Edema Ectopic cardiac beats Bilateral leg edema Edema documented in this encounter [facility] Work Phone: Evaluation note* Diagnosis LV dysfunction Heart disease, unspecified Ectopic cardiac beats Thoracic aortic aneurysm without rupture (HCC) Thoracic aneurysm without mention of rupture Aneurysm of heart Aneurysm of heart (wall) documented in this encounter [facility] Work Phone: Evaluation note* Diagnosis Periprosthetic fracture around internal prosthetic joint- Primary Faith-prosthetic fracture around prosthetic joint Closed displaced comminuted fracture of shaft of left femur, initial encounter ([facility]) Hypertensive urgency Unspecified essential hypertension Gait instability Abnormality of gait Intractable neuropathic pain of left knee Hyponatremia Hyposmolality and/or hyponatremia Hyperglycemia Other abnormal glucose documented in this encounter [facility] Work Phone: Evaluation note* Diagnosis Faith-prosthetic femoral shaft fracture -distal- Primary Faith-prosthetic fracture around prosthetic joint documented in this encounter [facility] Work Phone: Evaluation note* Diagnosis Benign neoplasm of larynx- Primary documented in this encounter [facility] Work Phone: Evaluation noteNo assessment information available [facility] Work Phone: Evaluation note* Diagnosis NSTEMI (non-ST elevated myocardial infarction) (HCC)- Primary Acute myocardial infarction, subendocardial infarction, episode of care unspecified NSTEMI (non-ST elevated myocardial infarction) (HCC) Acute myocardial infarction, subendocardial infarction, episode of care unspecified NSTEMI (non-ST elevated myocardial infarction) ([facility]/HCC) (HCC) Acute myocardial infarction, subendocardial infarction, episode of care unspecified [facility] Diagnosis Aphasia- Primary Pressure injury of sacral region, unstageable ([facility]) [facility]* Diagnosis 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 [facility] Diagnosis 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 Thyroid nodule Nontoxic uninodular goiter Age-related osteoporosis without current pathological fracture Debility Unspecified debility [facility] Fall, initial encounter- Primary Closed head injury, initial encounter Sprain of left shoulder, unspecified shoulder sprain type, initial encounter [facility] Diagnosis Thyroid nodule- Primary 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 Age-related osteoporosis without current pathological fracture [facility] Diagnosis 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 Thyroid nodule Nontoxic uninodular goiter Age-related osteoporosis without current pathological fracture documented in this encounter Rodrigo [facility] (narrative)* Consultation (Routine) - Pending Review Specialty Diagnoses / Procedures Referred By Austin wheat Referred To Contact Wound Care Diagnoses Pressure injury of sacral region, unstageable (HCC) Procedures IN OFFICE/OUTPATIENT [facility] 60 MINUTES Chi Bowen, JOHANNY [address] [place] [address] Ach Wound Ostomy [address] [place] [id number] Referral ID Status Reason Start Date Expiration Date Visits Requested Visits Authorized [id number] Pending Review Specialty Services Required 11/15/2023 11/14/2024 1 1 Rodrigo Mcintyre for referral (narrative)No reason for referral information [facility] Work Phone: Reason for Referral Status Reason Specialty Diagnoses / Procedures Referre d By Contact Referred To Contact [facility] Diagnoses Right leg pain Leg edema Procedures US Lower Extremity Venous Right Chris Arora DO [address] [place] [address] Status Reason Specialty Diagnoses / Procedures Referred By Contact Referred To Contact [facility] Diagnoses Bruit of right carotid artery Procedures VL DUP CAROTID BILATERAL Chris Arora DO [address] [place] [address] Status Reason Specialty Diagnoses / Procedures Referre d By Contact Referred To Contact Closed Radiology Diagnoses LV dysfunction Ectopic cardiac beats Thoracic aortic aneurysm without rupture (HCC) Aneurysm of heart Procedures NM Myocardial Spect Rest Exercise or Rx Holland Leiva MD [address] [place] [address] [address] [place] [address] Assessments Diagnosis Right leg pain Pain in limb Leg edema Edema Diagnosis Injury of head, initial encounter- Primary Laceration of scalp, initial encounter Near syncope Syncope and collapse Fall, initial encounter Contusion of knee, unspecified laterality, initial encounter Skin tear of right forearm without complication, initial encounter Diagnosis Compression fracture of L5 vertebra, initial encounter (HCC)- Primary Fall on same level from slipping, tripping or stumbling, initial encounter Constipation, unspecified constipation type Advance Directives Documents on File Type Date Recorded Patient [employer] Expl anation Advance Directives and Living Will Power of Firer [employer]ocomotive Latest Code Status on File Code Status Date Activated Date Inactivated Comments Full Code 08/31/2019 12:51 PM 08/31/2019 6:24 PM Full Code 01/03/2019 12:14 PM 01/05/2019 3:27 PM Documents on File Type Date Recorded Patient [employer] Expl anation Advance Directives and Living Will Power of Firer [employer]ocom[employer] Latest Code Status on File Code Status Date Activated Date Inactivated Comments Full Code 01/03/2019 12:14 PM 01/05/2019 3:27 PM Documents on File Type Date Recorded Patient [employer] Expl anation ACP-Advance Directive ACP-Power of Firer Locomotive Latest Code Status on File Code Status Date Activated Date Inactivated Comments Full Code 08/31/2019 12:51 PM 08/31/2019 6:24 PM Full Code 01/03/2019 12:14 PM 01/05/2019 3:27 PM Documents on File Type Date Recorded Patient [employer] Expl anation ACP-Advance Directive ACP-Power of Firer [employer] Latest Code Status on File Code Status Date Activated Date Inactivated Comments Full Code 12/04/2020 10:29 AM 12/04/2020 3:46 PM Full Code 08/31/2019 12:51 PM 08/31/2019 6:24 PM Latest Code Status on File Code Status Date Activated Date Inactivated Comments Full Code 12/04/2020 10:29 AM 12/04/2020 3:46 PM Full Code 08/31/2019 12:51 PM 08/31/2019 6:24 PM Latest Code Status on File Code Status Date Activated Date Inactivated Comments Full Code 06/11/2021 9:54 AM Full Code 12/04/2020 10:29 AM 12/04/2020 3:46 PM Latest Code Status on File Code Status Date Activated Date Inactivated Comments Full Code 09/25/2021 12:45 AM Full Code 06/11/2021 9:54 AM 06/11/2021 4:27 PM Latest Code Status on File Code Status Date Activated Date Inactivated Comments Full Code 10/01/2021 7:46 AM Full Code 09/25/2021 12:45 AM 09/29/2021 11:48 PM Latest Code Status on File Code Status Date Activated Date Inactivated Comments Full Code 08/31/2019 12:51 PM Latest Code Status on File Code Status Date Activated Date Inactivated Comments Full Code 10/24/2023 1:23 AM 10/29/2023 6:48 PM Latest Code Status on File Code Status Date Activated Date Inactivated Comments Full Code 11/13/2023 3:13 PM 11/15/2023 8:43 PM Code Status History Code Status Date Activated Date Inactivated Comments Full Code 10/24/2023 1:23 AM 10/29/2023 6:48 PM Latest Code Status on File Code Status Date Activated Date Inactivated Comments Full Code 11/13/2023 3:13 PM 11/15/2023 8:43 PM Code Status History Code Status Date Activated Date Inactivated Comments Full Code 10/24/2023 1:23 AM 10/29/2023 6:48 PM Date Activated Date Inactivated Comments 11/13/2023 3:13 PM 11/15/2023 8:43 PM Date Activated Date Inactivated Comments 10/24/2023 1:23 AM 10/29/2023 6:48 PM Discharge Instructions * Instructions* Atilio Carrillo, DO - 05/04/2019 Return if not acting normal. Try to get up slowly. Watch for signs of infection red-hot swelling pain. Tetanus was updated. Turn if any problems concerns * Attachments The following attachments cannot be sent through Care Everywhere. * Lacerations: Adhesives (Vietnamese) * Fall Prevention (Vietnamese) * Head Injury: Closed: General Info (Vietnamese) * Contusion (Vietnamese) documented in this encounter* Instructions* Rosette Guzmán MD - 10/25/2020 We would suggest wearing a corset for comfort. You may take tylenol 1000mg and ibuprofen 600mg together for pain. Every 6 hrs for the next 2 days. Dont forget the prune juice! * Attachments The following attachments cannot be sent through Care Everywhere. * Compression Fracture: Spine (Vietnamese) documented in this encounter Summary Purpose Family History Family Member Condition Father Mother Chief Complaint and Reason for Visit Chief Complaint HALFWAY LABWORK LABWORK Chief Complaint LABWORK LABWORK Chief Complaint LABWORK LABWORK HALFWAY LAB WORK Chief Complaint LABWORK LABWORK HALFWAY LAB WORK HALFWAY LABWORK Chief Complaint Admit Date LABWORK September 04, 2024 5 :00am HALFWAY LAB WORK October 26, 2024 4 :00am Chief Complaint Admit Date HALFWAY LAB WORK October 26, 2024 4 :00am HALFWAY LAB WORK November 06, 2024 5: 00am LABWORK November 30, 2024 5:00am LABWORK January 01, 2025 5:00a m Additional Source Comments Reason for Visit (unrecogniz ed section and content) right shoulder pain, Follow- up by complaint Reason Comments Dizziness Fall Head Injury Reason Comments Fall Reason Comments Hip Pain L Reason Comments Fall Leg Pain Reason Comments Altered Mental Status Specialty Diagnoses / Procedures Referred By Austin t Referred To Contact Diagnoses NSTEMI (non-ST elevated myocardial infarction) (HCC) Procedures .. Casey Alonso MD [address] [place] [address] [facility] [address] [place] [address] Referral ID Status Reason Start Date Expiration Date Visits Re quested Visits Authorized [id number] 1 Reason Comments Altered Mental Status Patient arrives to ED via EMS from SNF for altered mental status. Patient is A&Ox2 at time of triage, patient complains of pain from bedsores. No further information from SNF, unknown baseline Specialty Diagnoses / Procedures Referred By Contnegrito t Referred To Contact Diagnoses Aphasia Procedures . Travis Lawrence DO [address] [place] [address] [facility] [address] [place] [address] Referral ID Status Reason Start Date Expiration Date Visits Re quested Visits Authorized [id number] 1 1 Reason Comments Hospital Follow-up thyroid Reason Onset Date Comments Orders 12/31/2023 Appointment 12/31/2023 Reason Onset Date Comments Results 01/04/2024 Reason Onset Date Comments Advice Only 06/23/2024 Bill Reason Comments Hyperthyroidism Ordered Prescriptions (unrec ognized section and content) Prescription Sig Dispensed Refills Start Date End Da te lactulose (CEPHULAC) 10 g packet Take 1 packet by mouth 3 times daily for 7 days 21 packet 0 10/25/2020 11/01/2020 Prescription Sig Dispensed Refills Start Date End Da te enoxaparin (LOVENOX) 40 MG/0.4ML injection Inject 0.4 mLs into the skin daily for 21 days 0 09/30/2021 10/21/2021 bisacodyl (DULCOLAX) [address] 1 suppository rectally daily as needed for Constipation (2nd line or patient preference) 30 suppository 0 09/29/2021 10/29/2021 polyethylene glycol (GLYCOLAX) 17 g packet Take 17 g by mouth daily 527 g 1 09/30/2021 10/30/2021 ondansetron (ZOFRAN-ODT) 4 MG disintegrating tablet Take 1 tablet by mouth every 8 hours as needed for Nausea or Vomiting 0 09/29/2021 lisinopril (PRINIVIL;ZESTRIL) 5 MG tablet Take 1 tablet by mouth daily 30 tablet 3 09/30/2021 lidocaine 4 % external patch Place 1 patch onto the skin daily 0 09/30/2021 docusate sodium (COLACE) 100 MG capsule Take 1 capsule by mouth 2 times daily 0 09/29/2021 oxyCODONE (ROXICODONE) 5 MG immediate release tabletIndications:Rosanna sed displaced comminuted fracture of shaft of left femur, initial encounter ([facility]) Take 1-2 tablets by mouth every 4 hours as needed for Pain for up to 3 days. 12 tablet 0 09/28/2021 10/01/2021 enoxaparin (LOVENOX) 40 MG/0.4ML injection Inject 0.4 mLs into the skin daily for 21 days 0 09/30/2021 09/29/2021 bisacodyl (DULCOLAX) [address] 1 suppository rectally daily 30 suppository 0 09/30/2021 09/29/2021 oxyCODONE (ROXICODONE) 5 MG immediate release tabletIndications:Rosanna sed displaced comminuted fracture of shaft of left femur, initial encounter ([facility]) Take 0.5-1 tablets by mouth every 4 hours as needed for Pain for up to 3 days. 8 tablet 0 09/27/2021 09/28/2021 Prescription Sig Dispensed Refills Start Date End Da te cephALEXin (KEFLEX) 500 MG capsule Take 1 capsule by mouth every 12 hours for 1 dose 1 capsule 0 10/06/2021 10/07/2021 Scheduled Active and Recently Administ ered Medications (unrecognized section and content) Medication Order 06/09/2021 06/10/2021 06/11/2021 acetaminophen (TYLENOL) tablet 500 mg (COMPLETED) 500 mg, Oral, ONCE, On Wed06/11/21 at 1030, For 1 dose, Maximum dose of acetaminophen is 4000 mg from all sources in 24 hours. Do not administer if patient has taken tylenol <4 hours earlier. Do not give if contraindicated ie. patient has active liver disease or cirrhosis., Pre-op (day of surgery) 1020 (Given - Provid er: Sayra Guzman RN) ceFAZolin (ANCEF) 2000 mg in dextrose 5 % 100 mL IVPB (COMPLETED) 2,000 mg, IntraVENous, CAMPUS DEAN TO O.R., 1 dose, On Wed06/11/21 at 1015, Administer within 1 hour prior to incision. Recommend to repeat in 3-4 hours after initial dose if still intra-op., Pre-op (day of surgery) 1203 (Given by Other Clinician - Provider: Dalila Bear RN)1233 (Stopped - Provider: Dalila Bear RN) famotidine (PEPCID) tablet 20 mg (COMPLETED) 20 mg, Oral, ONCE, On Wed06/11/21 at 1030, For 1 dose, Pre-op (day of surgery) 1020 (Given - Provid er: Sayra Guzman RN) sodium chloride flush 0.9 % injection 5-40 mL 5-40 mL, IntraVENous, EVERY 12 HOURS SCHEDULED (2 times per day), First dose on Wed06/11/21 at 1015, For Line Patency: Peripheral IV = 5 mL; Midline or Central Line = 10 mL/lumen. If following IV push medication, administer flush at same rate as the IV push. Flush volume is determined by type of infusion therapy being given. For non-viscous solutions use: Peripheral IV = 5 mL Midline or Central Line = 10 mL/lumen For viscous solutions (i.e. blood components, parenteral nutrition, contrast media, or after obtaining blood sample) use: Peripheral IV = 10 mL Midline or Central Line = 20 mL/lumen, Pre-op (day of surgery) 1015 (Due)2100 (Due) Continuous Medication Order 06/09/2021 06/10/2021 06/11/2021 lactated ringers infusion IntraVENous, at 50 mL/hr, CONTINUOUS, Starting on Wed06/11/21 at 1045, Pre-op (day of surgery) 1025 (New Bag - Prov ider: Sayra Guzman RN) PRN Medication Order 06/09/2021 06/10/2021 06/11/2021 0.9 % sodium chloride bolus 500 mL (9.04 mL/kg), IntraVENous, at 500 mL/hr, Administer over 1 Hours, ONCE PRN, Nausea, Starting on Wed06/11/21 at 1121, For 1 dose, Use caution in patients with a diagnosis of Heart failure or Kidney failure., PACU only 0.9 % sodium chloride infusion 25 mL, IntraVENous, at 100 mL/hr, PRN, If patient receiving piggyback infusions without ordered maintenance IV fluids or with frequent/long duration piggyback infusions, Starting on Wed06/11/21 at 0954, Administer at the same rate as the piggyback being infused., Pre-op (day of surgery) diphenhydrAMINE (BENADRYL) injection 12.5 mg 12.5 mg, IntraVENous, ONCE PRN, Itching, Starting on Wed06/11/21 at 1121, For 1 dose, PACU only hydrALAZINE (APRESOLINE) injection 5 mg 5 mg, IntraVENous, EVERY 10 MIN PRN, High Blood Pressure, Starting on Wed06/11/21 at 1121, PRN for SBP > 160 for 2 consecutive measurements, and if one of the following conditions is met: 1) If IV labetolol is ineffective. 2) If HR is under 60. 3) If patient has heart block, COPD or asthma. If both labetalol and hydralazine ineffective, notify anesthesiologist., PACU only labetalol (NORMODYNE;TRANDATE) injection 5 mg 5 mg, IntraVENous, EVERY 10 MIN PRN, High Blood Pressure, Starting on Wed06/11/21 at 1121, PRN for SBP >160 for 2 consecutive measurements, if HR is 60 or greater. If beta maribel is contraindicated (HR less than 60, heart block, COPD or asthma) use hydralazine IV order., PACU only ondansetron (ZOFRAN) injection 4 mg 4 mg, IntraVENous, ONCE PRN, Nausea, Starting on Wed06/11/21 at 1121, For 1 dose, Initial antiemetic therapy., PACU only oxyCODONE (ROXICODONE) immediate release tablet 10 mg(Linked Group 1) 10 mg, Oral, ONCE PRN, Pain Severe (7-10), Starting on Wed06/11/21 at 1122, For 1 dose, PACU & Post-op oxyCODONE (ROXICODONE) immediate release tablet 5 mg(Linked Group 1) 5 mg, Oral, ONCE PRN, Pain Moderate (4-6), Starting on Wed06/11/21 at 1122, For 1 dose, PACU & Post-op promethazine (PHENERGAN) injection 6.25 mg 6.25 mg, IntraVENous, ONCE PRN, Nausea, Starting on Wed06/11/21 at 1121, For 1 dose, Caution if used IV:Check IV site for infiltrate prior to and during administration. Secondary antiemetic therapy. For IV administration, dilute to 10ml with normal saline. Must be administered over at least 10 minutes., PACU only sodium chloride flush 0.9 % injection 5-40 mL 5-40 mL, IntraVENous, PRN, Line Care, Starting on Wed06/11/21 at 0954, For Line Patency: Peripheral IV = 5 mL; Midline or Central Line = 10 mL/lumen. If following IV push medication, administer flush at same rate as the IV push. Flush volume is determined by type of infusion therapy being given. For non-viscous solutions use: Peripheral IV = 5 mL Midline or Central Line = 10 mL/lumen For viscous solutions (i.e. blood components, parenteral nutrition, contrast media, or after obtaining blood sample) use: Peripheral IV = 10 mL Midline or Central Line = 20 mL/lumen, Pre-op (day of surgery) Linked Groups Order Group 1: oxyCODONE (ROXICODONE) immediate release tablet 5 mgJump to med 5 mg, Oral, ONCE PRN, Pain Moderate (4-6), Starting on Wed06/11/21 at 1122, For 1 dose, PACU & Post-op Or oxyCODONE (ROXICODONE) immediate release tablet 10 mgJump to med 10 mg, Oral, ONCE PRN, Pain Severe (7-10), Starting on Wed06/11/21 at 1122, For 1 dose, PACU & Post-op Scheduled Medication Order 09/27/2021 09/28/2021 09/29/2021 bisacodyl (DULCOLAX) suppository 10 mg 10 mg, Rectal, DAILY, First dose on Wed09/28/21 at 1000 1541 (Given - Provider: Minda Cisneros RN) 0844 (Given - Provider: Minda Cisneros RN) carvedilol (COREG) tablet 12.5 mg 12.5 mg, Oral, DAILY WITH BREAKFAST, First dose on Perla 09/25/21 at 0800, Hold SBP <110 mmHg, P < 65 BPM Administer with food to minimize the risk of orthostatic hypotension 0943 (Given - Provider: Suman Arana LPN) 0813 (Given - Provider: Minda Cisneros RN) 0852 (Not Given - Provider: Minda Cisneros RN - Reason: Order parameters not met) docusate sodium (COLACE) capsule 100 mg 100 mg, Oral, 2 TIMES DAILY, First dose on Wed09/26/21 at 1515, Do not crush or break. 0944 (Given - Provider: Suman Arana LPN)193 (Given - Provider: Veto Gao RN) 08 (Given - Provider: Minda Cisneros RN)2009 (Given - Provider: Veto Gao RN) 0844 (Given - Provider: Minda Cisneros RN)2099 (Due) enoxaparin (LOVENOX) injection 40 mg 40 mg, SubCUTAneous, DAILY, First dose on Wed09/26/21 at 0915 0930 (Given - Provider: Suman Arana LPN) 0812 (Given - Provider: Minda Cisneros RN) 0844 (Given - Provider: Minda Cisneros RN) lidocaine 4 % external patch 1 patch 1 patch, TransDERmal, Administer over 12 Hours, DAILY, First dose on 09/27/21 at 1230, Apply patch to left ribs. Patch may remain in place for up to 12 hours in any 24 hour period. 1213 (Patch Applied - Provider: Regi Glass RN - Comment: Left rib)2355 (Patch Removed - Provider: Veto Gao RN) 08 (Patch Applied - Provider: Minda Cisneros RN)2010 (Patch Removed - Provider: Veto Gao RN) 08 (Patch Applied - Provider: Minda Cisneros RN)2043 (Due: Patch Removed - Provider: Minda Cisneros RN) lisinopril (PRINIVIL;ZESTRIL) tablet 5 mg 5 mg, Oral, DAILY, First dose (after last modification) on Wed09/26/21 at 0900, Hold SBP < 110 mmHg 0944 (Given - Provider: Suman Arana LPN) 0813 (Given - Provider: Minda Cisneros RN) 0852 (Not Given - Provider: Minda Cisneros RN - Reason: Order parameters not met) polyethylene glycol (GLYCOLAX) packet 17 g 17 g, Oral, DAILY, First dose on Wed09/26/21 at 1515 0943 (Given - Provider: Suman Arana LPN) 0812 (Given - Provider: Minda Cisneros RN) 0844 (Given - Provider: Minda Cisneros RN) simvastatin (ZOCOR) tablet 10 mg 10 mg, Oral, NIGHTLY, First dose on Perla 09/25/21 at 2100 1937 (Given - Provider: Veto Gao RN) 2009 (Given - Provider: Veto Gao RN) 2100 (Due) sodium chloride flush 0.9 % injection 5-40 mL 5-40 mL, IntraVENous, EVERY 12 HOURS SCHEDULED (2 times per day), First dose on Perla 09/25/21 at 0900, For Line Patency: Peripheral IV = 5 mL; Midline or Central Line = 10 mL/lumen. If following IV push medication, administer flush at same rate as the IV push. Flush volume is determined by type of infusion therapy being given. For non-viscous solutions use: Peripheral IV = 5 mL Midline or Central Line = 10 mL/lumen For viscous solutions (i.e. blood components, parenteral nutrition, contrast media, or after obtaining blood sample) use: Peripheral IV = 10 mL Midline or Central Line = 20 mL/lumen 0944 (Given - Provider: Suman Arnaa LPN)1936 (Given - Provider: Veto Gao RN) 812 (Given - Provider: Minda Cisneros RN)2010 (Given - Provider: Veto Gao RN) 08 (Given - Provider: Minda Cisneros RN)2100 (Due) PRN Medication Order 09/27/2021 09/28/2021 09/29/2021 0.9 % sodium chloride infusion 25 mL, IntraVENous, at 100 mL/hr, PRN, If patient receiving piggyback infusions without ordered maintenance IV fluids or with frequent/long duration piggyback infusions, Starting on Perla 09/25/21 at 0044, Administer at the same rate as the piggyback being infused. acetaminophen (TYLENOL) suppository 650 mg(Linked Group 1) 650 mg, Rectal, EVERY 6 HOURS PRN, Pain Mild (1-3), Fever, For temp greater than 100.4 F (38 C), Starting on Perla 09/25/21 at 0044, Administer if oral route cannot be used. acetaminophen (TYLENOL) tablet 650 mg(Linked Group 1) 650 mg, Oral, EVERY 6 HOURS PRN, Pain Mild (1-3), Fever, For temp greater than 100.4 F (38 C), Starting on Perla 09/25/21 at 0044, Maximum dose of acetaminophen is 4000 mg from all sources in 24 hours. hydrALAZINE (APRESOLINE) injection 10 mg 10 mg, IntraVENous, EVERY 4 HOURS PRN, High Blood Pressure, SBP>160, Starting on Perla 09/25/21 at 0049 ondansetron (ZOFRAN) injection 4 mg(Linked Group 2) 4 mg, IntraVENous, EVERY 6 HOURS PRN, Nausea, Vomiting, Starting on Perla 09/25/21 at 0044, Administer if oral route cannot be used. ondansetron (ZOFRAN-ODT) disintegrating tablet 4 mg(Linked Group 2) 4 mg, Oral, EVERY 8 HOURS PRN, Nausea, Vomiting, Starting on Perla 09/25/21 at 0044 oxyCODONE (ROXICODONE) immediate release tablet 10 mg(Linked Group 3) 10 mg, Oral, EVERY 4 HOURS PRN, Pain Severe (7-10), Starting on 09/28/21 at 0936 0959 (Given - Provider: Minda Cisneros RN) 045 (See Alternative - Provider: Veto Gao RN)2042 (See Alternative - Provider: Candido Manning RN) oxyCODONE (ROXICODONE) immediate release tablet 5 mg (CANCELED) 5 mg, Oral, EVERY 4 HOURS PRN, Pain Severe (7-10), Starting on Wed09/26/21 at 1450 1212 (Given - Provider: Regi Glass RN)1941 (Given - Provider: Veto Gao RN) 0607 (Given - Provider: Veto Gao RN) oxyCODONE (ROXICODONE) immediate release tablet 5 mg(Linked Group 3) 5 mg, Oral, EVERY 4 HOURS PRN, Pain Moderate (4-6), Starting on 09/28/21 at 0936 0959 (See Alternative - Provider: Minda Cisneros RN) 045 (Given - Provider: Veto Gao RN)2042 (Given - Provider: Candido Manning RN) polyethylene glycol (GLYCOLAX) packet 17 g 17 g, Oral, DAILY PRN, Constipation, Starting on Wed09/25/21 at 0044, First line therapy for constipation sodium chloride flush 0.9 % injection 5-40 mL 5-40 mL, IntraVENous, PRN, Line Care, After every IV line use, Starting on Wed09/25/21 at 0044, For Line Patency: Peripheral IV = 5 mL; Midline or Central Line = 10 mL/lumen. If following IV push medication, administer flush at same rate as the IV push. Flush volume is determined by type of infusion therapy being given. For non-viscous solutions use: Peripheral IV = 5 mL Midline or Central Line = 10 mL/lumen For viscous solutions (i.e. blood components, parenteral nutrition, contrast media, or after obtaining blood sample) use: Peripheral IV = 10 mL Midline or Central Line = 20 mL/lumen Linked Groups Order Group 1: acetaminophen (TYLENOL) tablet 650 mgJump to med 650 mg, Oral, EVERY 6 HOURS PRN, Pain Mild (1-3), Fever, For temp greater than 100.4 F (38 C), Starting on Perla 09/25/21 at 0044
Maximum dose of acetaminophen is 4000 mg from all sources in 24 hours.
Or acetaminophen (TYLENOL) suppository 650 mgJump to med 650 mg, Rectal, EVERY 6 HOURS PRN, Pain Mild (1-3), Fever, For temp greater than 100.4 F (38 C), Starting on Perla 09/25/21 at 0044
Administer if oral route cannot be used.
Group 2: ondansetron (ZOFRAN-ODT) disintegrating tablet 4 mgJump to med 4 mg, Oral, EVERY 8 HOURS PRN, Nausea, Vomiting, Starting on Perla 09/25/21 at 0044 Or ondansetron (ZOFRAN) injection 4 mgJump to med 4 mg, IntraVENous, EVERY 6 HOURS PRN, Nausea, Vomiting, Starting on Perla 09/25/21 at 0044
Administer if oral route cannot be used.
Group 3: oxyCODONE (ROXICODONE) immediate release tablet 10 mgJump to med 10 mg, Oral, EVERY 4 HOURS PRN, Pain Severe (7-10), Starting on 09/28/21 at 0936 Or oxyCODONE (ROXICODONE) immediate release tablet 5 mgJump to med 5 mg, Oral, EVERY 4 HOURS PRN, Pain Moderate (4-6), Starting on 09/28/21 at 0936 Scheduled Medication Order 10/04/2021 10/05/2021 10/06/2021 atorvastatin (LIPITOR) tablet 10 mg 10 mg, Oral, Nightly, First dose on Wed10/01/21 at 2100, Substituted for Simvastatin (ZOCOR). 2124 (Given - Provider: Ruth Ann Juan RN) 2058 (Given - Provider: Ruth Ann Juan RN) 2099 (Due) carvedilol (COREG) tablet 12.5 mg 12.5 mg, Oral, DAILY, First dose on Wed10/01/21 at 0900, Administer with food to minimize the risk of orthostatic hypotension 0832 (Given - Provider: Tierra Vogt RN) 075 (Given - Provider: Esperanza Berry RN) 075 (Given - Provider: Esperanza Berry RN) cephALEXin (KEFLEX) capsule 500 mg 500 mg, Oral, EVERY 12 HOURS SCHEDULED (2 times per day), First dose on Wed10/03/21 at 2100, For 7 doses 0832 (Given - Provider: Tierra Vogt RN)2124 (Given - Provider: Ruth Ann Juan RN) 075 (Given - Provider: Esperanza Berry RN)2058 (Given - Provider: Ruth Ann Juan RN) 075 (Given - Provider: Esperanza Berry RN)2099 (Due) docusate sodium (COLACE) capsule 100 mg 100 mg, Oral, 2 TIMES DAILY, First dose on Wed10/01/21 at 0900, Do not crush or break. 0832 (Given - Provider: Teirra Vogt RN)2124 (Given - Provider: Ruth Ann Juan RN) 075 (Given - Provider: Esperanza Berry RN)2058 (Given - Provider: Ruth Ann Juan RN) 075 (Given - Provider: Esperanza Berry RN)2099 (Due) enoxaparin (LOVENOX) injection 40 mg 40 mg, SubCUTAneous, DAILY, First dose on Wed10/01/21 at 0900 0833 (Given - Provider: Tierra Vogt RN) 0749 (Given - Provider: Esperanza Berry RN) 075 (Given - Provider: Esperanza Berry RN) lisinopril (PRINIVIL;ZESTRIL) tablet 5 mg 5 mg, Oral, DAILY, First dose on Wed10/01/21 at 0900 0832 (Given - Provider: Tierra Vogt RN) 0750 (Given - Provider: Esperanza Berry RN) 0755 (Given - Provider: Esperanza Berry RN) pantoprazole (PROTONIX) tablet 40 mg 40 mg, Oral, DAILY BEFORE BREAKFAST, First dose on Wed10/01/21 at 0815, Do not crush or break. 0556 (Given - Provider: Helen Astorga RN) 0624 (Given - Provider: Ruth Ann Juan RN) 0547 (Given - Provider: Ruth Ann Juan RN) polyethylene glycol (GLYCOLAX) packet 17 g 17 g, Oral, DAILY, First dose on Wed10/01/21 at 0900 0839 (Given - Provider: Tierra Vogt RN) 0750 (Given - Provider: Esperanza Berry RN) 0755 (Given - Provider: Esperanza Berry RN) sodium chloride flush 0.9 % injection 5-40 mL 5-40 mL, IntraVENous, EVERY 12 HOURS SCHEDULED (2 times per day), First dose on Wed10/01/21 at 0900, For Line Patency: Peripheral IV = 5 mL; Midline or Central Line = 10 mL/lumen. If following IV push medication, administer flush at same rate as the IV push. Flush volume is determined by type of infusion therapy being given. For non-viscous solutions use: Peripheral IV = 5 mL Midline or Central Line = 10 mL/lumen For viscous solutions (i.e. blood components, parenteral nutrition, contrast media, or after obtaining blood sample) use: Peripheral IV = 10 mL Midline or Central Line = 20 mL/lumen 0835 (Not Given - Provider: Tierra Vogt RN - Reason: IV Fluid Infusing)2124 (Not Given - Provider: Ruth Ann Juan RN - Reason: IV Fluid Infusing) 075 (Not Given - Provider: Esperanza Berry RN - Reason: IV Fluid Infusing)2058 (Not Given - Provider: Ruth Ann Juan RN - Reason: IV Fluid Infusing) 075 (Not Given - Provider: Esperanza Berry RN - Reason: IV Fluid Infusing)2100 (Due) Continuous Medication Order 10/04/2021 10/05/2021 10/06/2021 lactated ringers infusion (CANCELED) IntraVENous, at 75 mL/hr, CONTINUOUS, Starting on Perla 10/02/21 at 1230 1004 (New Bag - Provider: Tierra Vogt RN)2125 (New Bag - Provider: Ruth Ann Juan, RN) 2100 (New Bag - Provider: Ruth Ann Juan RN) 1328 (Stopped - Provider: Esperanza Berry RN) PRN Medication Order 10/04/2021 10/05/2021 10/06/2021 0.9 % sodium chloride infusion 25 mL, IntraVENous, at 100 mL/hr, PRN, If patient receiving piggyback infusions without ordered maintenance IV fluids or with frequent/long duration piggyback infusions, Starting on Wed10/01/21 at 0746, Administer at the same rate as the piggyback being infused. acetaminophen (TYLENOL) suppository 650 mg(Linked Group 1) 650 mg, Rectal, EVERY 6 HOURS PRN, Pain Mild (1-3), Fever, For temp greater than 100.4 F (38 C), Starting on Wed10/01/21 at 0746, Administer if oral route cannot be used. 1756 (See Alternative - Provider: Tierra Vogt RN) 1246 (See Alternative - Provider: Esperanza Berry RN)2058 (See Alternative - Provider: Ruth Ann Juan RN) 0756 (See Alternative - Provider: Esperanza Berry RN) acetaminophen (TYLENOL) tablet 650 mg(Linked Group 1) 650 mg, Oral, EVERY 6 HOURS PRN, Pain Mild (1-3), Fever, For temp greater than 100.4 F (38 C), Starting on Wed10/01/21 at 0746, Maximum dose of acetaminophen is 4000 mg from all sources in 24 hours. 1756 (Given - Provider: Tierra Vogt RN) 1246 (Given - Provider: Esperanza Berry RN)2058 (Given - Provider: Ruth Ann Juan RN) 0756 (Given - Provider: Esperanza Berry, RN) albuterol (PROVENTIL) nebulizer solution 2.5 mg 2.5 mg, Nebulization, EVERY 6 HOURS PRN, Wheezing, Shortness of Breath, Starting on Wed10/01/21 at 1200 bisacodyl (DULCOLAX) suppository 10 mg 10 mg, Rectal, DAILY PRN, Constipation, 2nd line or patient preference, Starting on Wed10/01/21 at 0746 1620 (Given - Provider: Tierra Vogt RN) hydrALAZINE (APRESOLINE) injection 5 mg 5 mg, IntraVENous, EVERY 6 HOURS PRN, High Blood Pressure, SBP>160 mmhg, Starting on Wed10/01/21 at 0746 ondansetron (ZOFRAN) injection 4 mg(Linked Group 2) 4 mg, IntraVENous, EVERY 6 HOURS PRN, Nausea, Vomiting, Starting on Wed10/01/21 at 0746, Administer if oral route cannot be used. ondansetron (ZOFRAN-ODT) disintegrating tablet 4 mg(Linked Group 2) 4 mg, Oral, EVERY 8 HOURS PRN, Nausea, Vomiting, Starting on Wed10/01/21 at 0746 oxyCODONE (ROXICODONE) immediate release tablet 2.5 mg 2.5 mg, Oral, EVERY 4 HOURS PRN, Pain Moderate (4-6), Starting on Wed10/01/21 at 0746 0857 (Given - Provider: Tierra Vogt RN)1537 (Given - Provider: Tierra Vogt RN)2125 (Given - Provider: Ruth Ann Juan RN) 2357 (Given - Provider: Ruth Ann Juan RN) polyethylene glycol (GLYCOLAX) packet 17 g 17 g, Oral, DAILY PRN, Constipation, Starting on Wed10/01/21 at 0746, First line therapy for constipation sodium chloride flush 0.9 % injection 5-40 mL 5-40 mL, IntraVENous, PRN, Line Care, After every IV line use, Starting on Wed10/01/21 at 0746, For Line Patency: Peripheral IV = 5 mL; Midline or Central Line = 10 mL/lumen. If following IV push medication, administer flush at same rate as the IV push. Flush volume is determined by type of infusion therapy being given. For non-viscous solutions use: Peripheral IV = 5 mL Midline or Central Line = 10 mL/lumen For viscous solutions (i.e. blood components, parenteral nutrition, contrast media, or after obtaining blood sample) use: Peripheral IV = 10 mL Midline or Central Line = 20 mL/lumen Linked Groups Order Group 1: acetaminophen (TYLENOL) tablet 650 mgJump to med 650 mg, Oral, EVERY 6 HOURS PRN, Pain Mild (1-3), Fever, For temp greater than 100.4 F (38 C), Starting on Wed10/01/21 at 0746
Maximum dose of acetaminophen is 4000 mg from all sources in 24 hours.
Or acetaminophen (TYLENOL) suppository 650 mgJump to med 650 mg, Rectal, EVERY 6 HOURS PRN, Pain Mild (1-3), Fever, For temp greater than 100.4 F (38 C), Starting on Wed10/01/21 at 0746
Administer if oral route cannot be used.
Group 2: ondansetron (ZOFRAN-ODT) disintegrating tablet 4 mgJump to med 4 mg, Oral, EVERY 8 HOURS PRN, Nausea, Vomiting, Starting on Wed10/01/21 at 0746 Or ondansetron (ZOFRAN) injection 4 mgJump to med 4 mg, IntraVENous, EVERY 6 HOURS PRN, Nausea, Vomiting, Starting on Wed10/01/21 at 0746
Administer if oral route cannot be used.
Scheduled Medication Order 10/27/2023 10/28/2023 10/29/2023 atorvastatin (Lipitor) tablet 10 mg 10 mg, Oral, Nightly, First dose on Wed10/27/23 at 2100, Substituted for simvastatin (Zocor). 2035 (Given - Provider: Teddy Doan RN) 2122 (Given - Provider: Estefania Seo RN) carvedilol (Coreg) tablet 12.5 mg 12.5 mg, Oral, 2 times daily with meals, First dose on Wed10/27/23 at 1115 1253 (Given - Provider: Gideon Santoro RN)1749 (Given - Provider: Gideon Santoro RN) 0919 (Given - Provider: Gideon Santoro RN)1713 (Given - Provider: Gideon Santoro RN) 0946 (Given - Provider: Regi Colindres RN)1700 (Canceled Entry - Provider: Automatic Discharge Provider - Comment: Automatically canceled at discontinue of medication order) cefTRIAXone (Rocephin) 2,000 mg in sodium chloride 0.9 % 50 mL IVPB Mini-Bag Plus 2,000 mg, IntraVENous, at 100 mL/hr, Administer over 30 Minutes, Every 24 hours, First dose on Wed10/26/23 at 1000, Mini-Bag Plus bag, Suspected Indication (Select all that apply): Bloodstream Infection 1030 (New Bag - Provider: Gideon Santoro RN)1100 (Stopped - Provider: Gideon Santoro RN) 0919 (New Bag - Provider: Gideon Santoro RN)0949 (Stopped - Provider: Gideon Santoro RN) 0951 (New Bag - Provider: Regi Colindres RN)1021 (Stopped - Provider: Regi Colindres RN) enoxaparin (Lovenox) syringe 30 mg (CANCELED) 30 mg, SubCUTAneous, Every 24 hours scheduled (Daily), First dose on 10/25/23 at 0900, Renal dosing, Indication of Use: Prophylaxis-DVT/PE, Indications: Prophylaxis of Venous Thromboembolism 1037 (Given - Provider: Gideon Santoro RN) 0920 (Given - Provider: Gideon Santoro RN) 0946 (Given - Provider: Regi Colindres RN) enoxaparin (Lovenox) syringe 40 mg 40 mg, SubCUTAneous, Every 24 hours scheduled (Daily), First dose (after last modification) on 10/30/23 at 0900, Dose adjusted per P&T. Approved renal dosing policy for crcl greater than 30, Indication of Use: Prophylaxis-DVT/PE, Indications: Prophylaxis of Venous Thromboembolism ferrous sulfate tablet 325 mg 325 mg, Oral, Daily with breakfast, First dose on Wed10/28/23 at 0800 0920 (Given - Provider: Gideon Santoro RN) 0946 (Given - Provider: Regi Colindres RN) heparin flush injection 250 Units 250 Units, IntraCATHeter, Every 12 hours, First dose on Wed10/29/23 at 0915, Each lumen. Do NOT administer to lumens with continuous fluids currently infusing. Line Care. Use 10 mL or larger syringe. 0947 (Given - Provider: Regi Colindres RN) lisinopril tablet 5 mg 5 mg, Oral, Daily, First dose on Wed10/27/23 at 1115 1253 (Given - Provider: Gideon Santoro RN) 0920 (Given - Provider: Gideon Santoro RN) 0946 (Given - Provider: Regi Colindres RN) oseltamivir (Tamiflu) capsule 30 mg (COMPLETED) 30 mg, Oral, 2 times daily, First dose (after last modification) on Wed10/26/23 at 0900, For 3 days, Dosage or interval has been adjusted per P&T Renal Dosing policy. , Coverage: Influenza, Infection Site: Site Not Specified 1030 (Given - Provider: Gideon Santoro RN)2035 (Given - Provider: Teddy Doan RN) 918 (Given - Provider: Gideon Santoro RN)2122 (Given - Provider: Estefania Seo RN) pantoprazole (ProtoNix) EC tablet 40 mg 40 mg, Oral, Daily before breakfast, First dose on Wed10/25/23 at 0715, Do not crush, chew, or split. 0639 (Given - Provider: Teddy Doan RN) 0540 (Given - Provider: Teddy Doan RN) 0553 (Given - Provider: Estefania Seo RN) potassium chloride CR (Klor-Con M20) ER tablet 40 mEq (COMPLETED) 40 mEq, Oral, Once, On Wed10/27/23 at 0830, For 1 dose, Best given with food and plenty of water to minimize gastric irritation. Do not crush or chew. 1030 (Given - Provider: Gideon Santoro RN) potassium chloride CR (Klor-Con M20) ER tablet 40 mEq (COMPLETED) 40 mEq, Oral, Once, On Wed10/29/23 at 0830, For 1 dose, Best given with food and plenty of water to minimize gastric irritation. Do not crush or chew. 0946 (Given - Provider: Regi Colindres RN) sodium chloride 0.9% (NS) flush 10 mL 10 mL, IntraVENous, Every 12 hours scheduled (2 times per day), First dose on Wed10/24/23 at 0900 1031 (Given - Provider: Gideon Santoro RN)2035 (Given - Provider: Teddy Doan RN) 09 (Given - Provider: Gideon Santoro RN)2127 (Given - Provider: Estefania Seo RN) 0948 (Given - Provider: Regi Colindres RN) sodium chloride 0.9% (NS) flush 10 mL 10 mL, IntraCATHeter, Every 12 hours, First dose on Wed10/29/23 at 0915, Administer to each lumen, regardless of whether or not fluids are infusing. Line Care. Use 10 mL or larger syringe. 0948 (Given - Provider: Regi Colindres, TY) sodium chloride 0.9% (NS) flush 5-40 mL 5-40 mL, IntraCATHeter, Every 8 hours, First dose on Wed10/24/23 at 0245, For Line Patency: Peripheral IV = 5 mL; Midline or Central Line = 10 mL/lumen. If following IV push medication, administer flush at same rate as the IV push. Flush volume is determined by type of infusion therapy being given. For non-viscous solutions use: Peripheral IV = 5 mL Midline or Central Line = 10 mL/lumen For viscous solutions (i.e. blood components, parenteral nutrition, contrast media, or after obtaining blood sample) use: Peripheral IV = 10 mL Midline or Central Line = 20 mL/lumen 0228 (Given - Provider: Teddy Doan RN)1045 (Canceled Entry - Provider: Gideon Santoro RN - Comment: duplicate)1845 (Given - Provider: Gideon Santoro RN) 0543 (Given - Provider: Teddy Doan RN)1045 (Canceled Entry - Provider: Gideon Santoro RN)1714 (Given - Provider: Gideon Santoro RN) 0204 (Given - Provider: Estefania Seo RN)1045 (Not Given - Provider: Regi Colindres RN - Reason: Other - Comment: see other) PRN Medication Order 10/27/2023 10/28/2023 10/29/2023 acetaminophen (Tylenol) tablet 1,000 mg 1,000 mg, Oral, Every 8 hours PRN, mild pain (1-3), fever, Starting on Wed10/24/23 at 0123, Maximum dose of acetaminophen is 4000 mg from all sources in 24 hours. heparin flush injection 250 Units 250 Units, IntraCATHeter, PRN, line care, after blood draws and after infusion, Starting on Wed10/29/23 at 0914, Do NOT administer to lumens with continuous fluids currently infusing. Line Care. Use 10 mL or larger syringe. lidocaine PF (Xylocaine) 1 % injection (COMPLETED) As needed, Starting on Wed10/29/23 at 0910, Intraprocedure 0910 (Given - Provid er: Lima Ashley PA-C) ondansetron (Zofran) injection 4 mg(Linked Group 1) 4 mg, IntraVENous, Every 6 hours PRN, nausea, vomiting, Starting on Wed10/24/23 at 0123, 1st Line. Give IV if patient is unable to take orally. If inadequate response within 60 minutes, proceed to next-line agent or contact provider if no further options ordered. ondansetron ODT (Zofran-ODT) disintegrating tablet 4 mg(Linked Group 1) 4 mg, Oral, Every 8 hours PRN, nausea, vomiting, Starting on 10/24/23 at 0123, 1st Line. If inadequate response within 60 minutes, proceed to next-line agent or contact provider if no further options ordered. Patient should allow tablet to dissolve on tongue. Do not remove from blister pack until just before administering. senna-docusate sodium (Senokot-S) 8.6-50 MG tablet 1 tablet 1 tablet, Oral, Daily PRN, constipation, Starting on Wed10/24/23 at 0123, Cannot be crushed in PEG, Indications: Constipation sodium chloride 0.9 % infusion 5-250 mL/hr, IntraVENous, PRN, if patient receiving piggyback infusions and maintenance fluids are not ordered OR KVO fluids to protect IV site / prevent frequent line interruptions/ long duration, Starting on Wed10/24/23 at 0123, For piggyback infusion, administer at same rate as piggyback for a total of 25 mL. Enter 25 mL into dose field and piggyback rate into rate field of order. If piggyback is infusing at a rate less than 100 mL/hr, enter 25 mL into dose field and 100 mL/hr into rate field of order. For KVO fluids, enter rate of 20 mL/hr or less into rate field of order. sodium chloride 0.9% (NS) flush 10 mL 10 mL, IntraVENous, PRN, line care, Starting on Wed10/24/23 at 0123, After every IV line use sodium chloride 0.9% (NS) flush 10 mL 10 mL, IntraCATHeter, PRN, line care, before blood draws, before and after infusion or medication administration, Starting on Wed10/29/23 at 0914, Use 10 mL or larger syringe. sodium chloride 0.9% (NS) flush 5-40 mL 5-40 mL, IntraVENous, PRN, line care, before and after blood draws, infusion, or medication administration, Starting on 10/24/23 at 0241, For Line Patency: Peripheral IV = 5 mL; Midline or Central Line = 10 mL/lumen. If following IV push medication, administer flush at same rate as the IV push. Flush volume is determined by type of infusion therapy being given. For non-viscous solutions use: Peripheral IV = 5 mL Midline or Central Line = 10 mL/lumen For viscous solutions (i.e. blood components, parenteral nutrition, contrast media, or after obtaining blood sample) use: Peripheral IV = 10 mL Midline or Central Line = 20 mL/lumen Linked Groups Order Group 1: ondansetron ODT (Zofran-ODT) disintegrating tablet 4 mgJump to med 4 mg, Oral, Every 8 hours PRN, nausea, vomiting, Starting on 10/24/23 at 0123, 1st Line. If inadequate response within 60 minutes, proceed to next-line agent or contact provider if no further options ordered. Patient should allow tablet to dissolve on tongue. Do not remove from blister pack until just before administering. Or ondansetron (Zofran) injection 4 mgJump to med 4 mg, IntraVENous, Every 6 hours PRN, nausea, vomiting, Starting on 10/24/23 at 0123, 1st Line. Give IV if patient is unable to take orally. If inadequate response within 60 minutes, proceed to next-line agent or contact provider if no further options ordered. Scheduled Medication Order 11/13/2023 11/14/2023 11/15/2023 atorvastatin (Lipitor) tablet 10 mg 10 mg, Oral, Nightly, First dose on 11/13/23 at 2100, Substituted for simvastatin (Zocor). 2136 (Given - Provider: Denise Emerson RN) 2103 (Given - Provider: Liz Robb RN) carvedilol (Coreg) tablet 3.125 mg 3.125 mg, Oral, 2 times daily with meals, First dose (after last modification) on 11/14/23 at 0800, Hold for HR < 58 or SBP < 100 0800 (Not Given - Provider: Paula Candelaria RN - Reason: Contraindicated)164 (Given - Provider: Paula Candelaria RN) 0800 (Given - Provider: Genia Pierre RN)1810 (Given - Provider: Genia Pierre RN) cetirizine (ZyrTEC) tablet 5 mg 5 mg, Oral, Daily, First dose on 11/14/23 at 0900 0909 (Given - Provider: Paula Candelaria RN) 0800 (Given - Provider: Genia Pierre RN) cilostazol (Pletal) tablet 100 mg 100 mg, Oral, 2 times daily, First dose on 11/13/23 at 2100 2137 (Given - Provider: Denise Emerson RN) 0915 (Given - Provider: Paula Candelaria RN)210 (Given - Provider: Liz Robb RN) 0800 (Given - Provider: Genia Pierre RN) enoxaparin (Lovenox) syringe 40 mg 40 mg, SubCUTAneous, Daily, First dose on 11/14/23 at 0900, Indication of Use: Prophylaxis-DVT/PE 09 (Given - Provider: Paula Candelaria RN) 08 (Given - Provider: Genia Pierre RN) ergocalciferol (Vitamin D2) capsule 1.25 mg 1.25 mg, Oral, Weekly, First dose on 11/15/23 at 0900 0801 (Given - Provid er: Genia Pierre RN) gabapentin (Neurontin) capsule 100 mg 100 mg, Oral, 3 times daily, First dose on 11/14/23 at 0900 1520 (Held by provider - Provider: Travis Lawrence, - Reason: Other)1720 (Unheld by provider - Provider: Jannette Miranda MD) 0909 (Given - Provider: Paula Candelaria RN)152 (Given - Provider: Paula Candelaria RN)210 (Given - Provider: Liz Robb RN) 0800 (Given - Provider: Genia Pierre RN)1500 (Given - Provider: Genia Pierre RN) Lidocaine 4 % patch 1 patch 1 patch, TransDERmal, Administer over 12 Hours, Daily, First dose on 11/14/23 at 0900, Apply patch to right knee. Patch may remain in place for up to 12 hours in any 24 hour period. 09 (Medication Applied - Provider: Paula Candelaria RN - Comment: shoulder)2114 (Medication Removed - Provider: Liz Robb RN) 800 (Medication Applied - Provider: Genia Pierre RN - Comment: rt knee)1838 (Due: Medication Removed - Provider: Automatic Discharge Provider - Comment: Time automatically adjusted from order being discontinued) Lidocaine 4 % patch 1 patch 1 patch, TransDERmal, Administer over 12 Hours, Daily, First dose on 11/14/23 at 0900, Apply patch to RIGHT SHOULDER. Patch may remain in place for up to 12 hours in any 24 hour period. 909 (Medication Applied - Provider: Paula Candelaria RN - Comment: right knee)2109 (Medication Removed - Provider: Liz Robb RN) 08 (Not Given - Provider: Genia Pierre RN - Reason: Patient/family refused - Comment: rt shoulder) melatonin tablet 3 mg 3 mg, Oral, Nightly, First dose on 11/13/23 at 2100 2137 (Given - Provider: Denise Emerson, TY) 2103 (Given - Provider: Liz Robb RN) methIMAzole (Tapazole) tablet 2.5 mg 2.5 mg, Oral, Daily, First dose on 11/14/23 at 1400 1522 (Given - Provider: Paula Candelaria RN) 08 (Given - Provider: Genia Pierre RN) miconazole (Micotin) 2 % powder Topical, 2 times daily, First dose on 11/13/23 at 2100 2137 (Given - Provider: Denise Emerson, RN) 09 (Given - Provider: Paula Candelaria RN)2103 (Given - Provider: Liz Robb, TY) 08 (Given - Provider: Genia Pierre RN) polycarbophil (Fibercon) tablet 625 mg 625 mg, Oral, Daily, First dose on 11/14/23 at 0900 0914 (Given - Provider: Paula Candelaria RN) 08 (Given - Provider: Genia Pierre RN) potassium chloride CR (Klor-Con M10) ER tablet 40 mEq 40 mEq, Oral, Daily, First dose on 11/14/23 at 0900, HOLD FOR POTASSIUM > 4.6 ......Best given with food and plenty of water to minimize gastric irritation. Do not crush or chew. 0909 (Given - Provider: Paula Candelaria RN) 0800 (Given - Provider: Genia Pierre, TY) senna-docusate sodium (Senokot-S) 8.6-50 MG tablet 2 tablet 2 tablet, Oral, Daily, First dose on 11/14/23 at 1230 1522 (Not Given - Provider: Paula Candelaria RN - Reason: Patient/family refused) 0800 (Given - Provider: Genia Pierre RN) sodium chloride 0.9 % bolus 500 mL (COMPLETED) 500 mL, IntraVENous, at 250 mL/hr, Administer over 2 Hours, Once, On 11/14/23 at 0930, For 1 dose 0935 (New Bag - Provider: Paula Candelaria RN)1135 (Stopped - Provider: Paual Candelaria RN) stomahesive in petrolatum (ET Mix) (CANCELED) Topical, 2 times daily, First dose on 11/13/23 at 2100, AND prn. 2137 (Given - Provider: Denise Emerson RN) 0911 (Given - Provider: Paula Candelaria, TY)2200 (Given - Provider: Liz Robb RN) 0802 (Given - Provider: Genia Pierre, TY) stomahesive in petrolatum (ET Mix) Topical, Every 8 hours, First dose (after last modification) on 11/15/23 at 1615, Sacrum: Pressure Injury (Unstageable) - Present on admission - Clean with soap and water, apply ET mix then leave JOJO TID and PRN 1810 (Given - Provid er: Genia Pierre RN) Continuous Medication Order 11/13/2023 11/14/2023 11/15/2023 sodium chloride 0.9 % infusion 75 mL/hr, IntraVENous, Continuous, Starting on 11/14/23 at 0830 0936 (New Bag - Provider: Paula Candelaria RN)1234 (Rate/Dose Verify - Provider: Paula Griffie, RN)1524 (Rate/Dose Verify - Provider: Paula Candelaria RN)2107 (New Bag - Provider: Liz Robb RN) PRN Medication Order 11/13/2023 11/14/2023 11/15/2023 acetaminophen (Tylenol) tablet 650 mg 650 mg, Oral, Every 6 hours PRN, mild pain (1-3), fever, headaches, Temp 100.5 F and greater, Starting on 11/13/23 at 1525, Maximum dose of acetaminophen is 4000 mg from all sources in 24 hours. guaiFENesin (Mucinex) 12 hr tablet 600 mg 600 mg, Oral, 2 times daily PRN, cough, Starting on 11/13/23 at 1637, Administer with plenty of fluids to ensure proper action. Do not crush, chew, or split. ipratropium-albuterol (Duo-Neb) 0.5-2.5 mg/3 mL nebulizer solution 3 mL 3 mL, Nebulization, Every 4 hours PRN, wheezing, shortness of breath, Starting on 11/13/23 at 1637 metoprolol tartrate (Lopressor) injection 5 mg 5 mg, IntraVENous, Every 6 hours PRN, tachycardia, Starting on 11/14/23 at 1428, HR >110 ondansetron (Zofran) injection 4 mg 4 mg, IntraVENous, Every 6 hours PRN, nausea, vomiting, Starting on 11/13/23 at 1525 polyethylene glycol (PEG) 3350 (Miralax) packet 17 g 17 g, Oral, Every 12 hours PRN, constipation, Starting on 11/13/23 at 1534 stomahesive in petrolatum (ET Mix) Topical, PRN, dry skin, Starting on 11/15/23 at 1239, Sacrum: Pressure Injury (Unstageable) - Present on admission - Clean with soap and water, apply ET mix then 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 Chris Arora DO Family Provider Active Dr. Chris Arora DO Primary Care Provider Active Team Status: Inactive Member Role Status Dates Dr. Chris Arora DO Primary Care Provider Active Thais Talamantes Attending Provider Active Team Status: Inactive Member Role Status Dates Dr. Chris Arora DO Primary Care Provider Active Thais HICKS Attending Provider Active Team Status: Inactive Member Role Status Dates Dr. Chris Arora DO Primary Care Provider Active Thais HICKS Attending Provider, Referring Provid er Active Team Status: Active Member Role Status Dates Dr. Chris Arora DO Primary Care Provider Active Thais HICKS Attending Provider Active Technology Strategist Relationship Specialty Start Date End Date Chris Arora DO [address] [place] [address] PCP - General 08/02/18 Technology Strategist Relationship Specialty Start Date End Date Thais Talamantes [address] [place] [address] [address] [place] [address] PCP - General Family Medicine 11/13/23 Technology Strategist Relationship Specialty Start Date End Date Thais Talamantes [address] [place] [address] [address] [place] [address] PCP - General Family Medicine 11/13/23 Technology Strategist Relationship Specialty Start Date End Date Thais Talamantes MD [address] [place] [address] [address] [place], [place] [phone] PCP - General Family Medicine 11/13/23 Technology Strategist Relationship Specialty Start Date End Date Thais Talamantes MD [address] [place] [address] [address] [place] [id number] PCP - General Family Medicine 11/13/23 Technology Strategist Relationship Specialty Start Date End Date Thais Talamantes MD [address] [place] [address] [address] [place] [id number] PCP - General Family Medicine 11/13/23 Technology Strategist Relationship Specialty Start Date End Date Thais Talamantes MD [address] [place] [address] [address] [place] [id number] PCP - General Family Medicine 11/13/23 Technology Strategist Relationship Specialty Start Date End Date Thais Talamantes MD [address] [place] [address] [address] [place] [id number] PCP - General Family Medicine 11/13/23 Team Status: Active Member Role Status Dates Dr. Chris Arora DO Primary Care Provider Active Start: September 04, 2024 Thais HICKS Attending Provider Active Star t: September 04, 2024 Team Status: Inactive Member Role Status Dates Dr. Chris Arora DO Primary Care Provider Active Start: October 26, 2024 End: October 26, 2024 Thais HICKS Attending Provider Active Star t: October 26, 2024 End: October 26, 2024 Thais HICKS Referring Provider Active Star t: October 26, 2024 End: October 26, 2024 Team Status: Active Member Role Status Dates Dr. Chris Arora DO Primary Care Provider Active Start: November 06, 2024 Thais HICKS Attending Provider Active Star t: November 06, 2024 Technology Strategist Relationship Specialty Start Date End Date Thais Talamantes MD [address] [place] [address] [id number] [place] [id number] PCP - General Family Medicine 11/13/23 Team Status: Inactive Member Role Status Dates Dr. Chris Arora DO Primary Care Provider Active Start: November 06, 2024 End: November 06, 2024 Thais HICKS Attending Provider Active Star t: November 06, 2024 End: November 06, 2024 Team Status: Inactive Member Role Status Dates Dr. Chris Arora DO Primary Care Provider Active Start: November 30, 2024 End: November 30, 2024 Thais HICKS Attending Provider Active Star t: November 30, 2024 End: November 30, 2024 Team Status: Inactive Member Role Status Dates Dr. Chris Arora DO Primary Care Provider Active Start: January 01, 2025 End: January 01, 2025 Thais HICKS Attending Provider Active Star t: January 01, 2025 End: January 01, 2025 INFORMATION SOURCE (unrecogn ized section and content) DATE CREATED AUTHOR 09/30/2021 [facility] DATE CREATED AUTHOR AUTHOR'S ORGANIZ ATION 10/09/2021 [facility] DATE CREATED AUTHOR AUTHOR'S ORGANIZ ATION 10/20/2021 [facility] DATE CREATED AUTHOR AUTHOR'S ORGANIZ ATION 01/15/2025 [facility] DATE CREATED AUTHOR AUTHOR'S ORGANIZ ATION 02/13/2025 [facility] Goals (unrecognized section and content) Goals may be documented in a n alternate sectionGoals may be documented in an alternate sectionGoals may be documented in an alternate sectionGoals may be documented in an alternate sectionGoals may be documented in an alternate sectionGoals may be documented in an alternate sectionGoals may be documented in an alternate sectionGoals may be documented in an alternate sectionGoals may be documented in an alternate section No Information Available FOR RECORDS PERTAINING TO PATIENTS WHO ARE OR HAVE BEEN ENROLLED IN A CHEMICAL DEPENDENCY/SUBSTANCEABUSE PROGRAM, SOME INFORMATION MAY BE OMITTED. This clinical summary was aggregated from multiple sources. Caution should be exercised in using it in the provision of clinical care. This summary normalizes information from multiple sources, and as a consequence, information in this document may materially change the coding, format and clinical context of patient data. In addition, data may be omitted in some cases. CLINICAL DECISIONS SHOULD BE BASED ON THE PRIMARY CLINICAL RECORDS. [facility] provides no warranty or guarantee of the accuracy or completeness of information in this document.
[2025-04-09 11:04] LABS: Vitamin D,25 Hydroxy 58.0 ng/mL (30-100)
== END ==
LOC: OLS.ACW100 04:00
PROVIDERS: PCP Family Medicine; Referring Provider Family Medicine; Visit Provider Family Medicine
DX: N39.0 Urinary tract infection, site not specified (principal); R41.82 Altered mental status, unspecified; R26.81 Unsteadiness on feet; Z47.1 Aftercare following joint replacement surgery; Z91.81 History of falling
CPT/HCPCS: 36415; 82306

== ENCOUNTER → 2025-05-07 | Outpatient (REF) | payer MEDICARE, MEDICAID, SELFPAY ==
[2025-05-07 08:13] LABS: Hematocrit 38.0 % (37-47); Hemoglobin 12.3 g/dL (12.0-15.0); Mean Corp Hgb Conc 32.4 g/dL (32-36); Mean Corpuscular Volume 99.2 fL (81-99); Mean Platelet Vol. 9.1 fl (6.2-12.0); Platelet Count 326 K/mm3 (150-450); RBC Distribution Width CV 12.7 % (11.6-14.6); RBC Distribution Width SD 46.0 fl (35.1-43.9); Red Blood Count 3.83 M/mm3 (4.2-5.4); White Blood Count 7.4 K/mm3 (4.4-11.0)
[2025-05-07 08:27] LABS: Anion Gap 10 (5-15); BUN 19 mg/dL (4-19); BUN/Creat Ratio 24.8 RATIO (10-20); Calcium,Total 9.9 mg/dL (7.6-11.0); Carbon Dioxide 25.0 mmol/L (21.0-32.0); Chloride 104 mmol/L (98-108); Cholesterol 159 mg/dL (<=200); Glucose 90 mg/dL (70-99); Low Density Lipoprotein Calc. 81 mg/dL; Potassium 4.8 mmol/L (3.3-5.1); Triglycerides 39 mg/dL; Very Low Density Lipoprotein 8 mg/dL (5-40); cholesterol:hdl ratio screen 2.26
[2025-05-07 09:02] LABS: Iron 47 ug/dL (50-170); Iron Binding Capacity,Unsat 150 ug/dL (228-428)
[2025-05-07 09:25] LABS: Iron Binding Capacity,Total 197 ug/dL (250-450)
== END ==
LOC: OLS.ACW100 05:00
PROVIDERS: PCP Family Medicine; Visit Provider Family Medicine
DX: J44.9 Chronic obstructive pulmonary disease, unspecified (principal); I10 Essential (primary) hypertension; E05.90 Thyrotoxicosis, unspecified without thyrotoxic crisis or storm; D50.9 Iron deficiency anemia, unspecified
CPT/HCPCS: 36415; 80048; 80061; 83540; 83550; 85027